=== PATIENT | male | born 1935 | race Caucasian/White ===

== ENCOUNTER 2020-04-20 08:34 | Emergency (ER) | payer MEDICARE, OTHER, SELFPAY ==
[2020-04-20] VITALS (7 sets, daily range): BP systolic 160–162; BP diastolic 74–83; PULSE 75–79; RESP 13–21; TEMP 36.6–36.8; O2SAT 86–95; BMI 35.2
--- NOTE | 2020-04-20 08:55 | XR_ITS ---
WS: [id number] CHEST XRAY TECHNIQUE: Portable chest. CLINICAL INFORMATION: Shortness of breath, Covid rule out COMPARISON: July 28, 2017 FINDINGS: Heart: Cardiomegaly. Aortic calcification. Lungs: Elevation hemidiaphragm. Chronic emphysematous changes. Subsegmental atelectasis right lower l obe. Right hilar/infrahilar masslike opacity measuring 5.6 x 4.4 CM more prominent compared to 2018. Left lung is well aerated. Bones: Normal visualized bony structures. XR/XR chest 1V portable [id number] IMPRESSION: 1. Right hilar/infrahilar masslike opacity progressed since 2018. Recommend fu rther evaluation with chest CT for better anatomic detail. 2. Subsegmental atelectasis right lower lobe with volume loss and elevation ri ght hemidiaphragm. 3. Cardiomegaly.
--- NOTE | 2020-04-20 08:56 | ECG_ITS ---
[facility] Test Date: 2020-04-20 Pat Name: Rashid Bolivar Department: Room: Gender: Male Women Specialist: : 1935 Requested By: Halina Sabillon Order Number: [id number] Jean MD: Adali Lopez M.D. Measurements Intervals [place] Rate: 77 P: 14 MD: 150 QRS: 145 QRSD: 98 T: 53 QT: 429 QTc: 487 Interpretive Statements SINUS RHYTHM INCOMPLETE RIGHT BUNDLE BRANCH BLOCK RIGHT VENTRICULAR HYPERTROPHY MODERATE ST DEPRESSION PROLONGED QT INTERVAL Compared to ECG 07/28/2017 12:13:06 Atrial abnormality now present ST (T wave) deviation now present Prolonged QT interval now present Indeterminate axis no longer present Myocardial infarct finding no longer present Electronically Signed On 04-20-2020 19:14:01 TURNTABLE ENGINEER by Adali Lopez M.D. [email or web address]/store/[id number]
[2020-04-20 09:29] LABS: Basophils % 0.2 %; Hematocrit 46.1 % (42.0-52.0); Hemoglobin 15.1 g/dL (11.7-16.6); Lymphocytes # 1.6 10^3/uL (0.8-4.8); Lymphocytes % 38.7 %; Mean Corpuscular HGB Conc 32.8 g/dL (30.0-36.0); Mean Corpuscular Hemoglobin 31.1 pg (28.0-34.0); Mean Corpuscular Volume 95.1 fL (80-94); Mean Platelet Volume 9.8 fL (7.4-10.4); Monocytes # 0.5 10^3/uL (0.2-0.9); Neutrophils # 1.96 10^3/uL (1.8-7.7); Neutrophils % 48.9 %; Nucleated Red Blood Cells % 0 %; Platelet Count 136 10^3/cmm (130-400); Red Blood Count 4.85 10^6/uL (4.1-5.3); Red Cell Distribution Width 13.3 % (12.1-15.1)
[2020-04-20 09:40] LABS: Fibrinogen 290 mg/dL (174-498); INR 1.04 (0.8-1.2)
[2020-04-20 09:43] LABS: D Dimer 0.65 ug/mIFEU (0-0.59)
[2020-04-20 09:52] LABS: Lactic Sepsis W/Reflex 1.2 mmol/L (0.5-2.2)
[2020-04-20 09:53] LABS: Troponin(5th) Baseline 25 ng/L (0-15)
[2020-04-20 09:56] LABS: Influenza A by IFA Negative (Negative); Influenza B by IFA Negative (Negative)
[2020-04-20 09:58] LABS: SARS Covid-2 Antigen Positive (Negative)
[2020-04-20 10:01] LABS: NT Pro B Type Natriuretic Pept 681 pg/mL (0-450); Procalcitonin 0.08 ng/mL (0-0.5)
[2020-04-20 10:14] LABS: Alanine Aminotransferase 35 U/L (0-41); Albumin Level 4.1 g/dL (3.5-5.2); Alkaline Phosphatase 42 IU/L (40-130); Anion Gap 15.6 (5-19); Aspartate Amino Transferase 38 U/L (0-40); Blood Urea Nitrogen 16 mg/dL (8-23); C Reactive Protein 7.1 mg/L (0.0-4.9); Calcium 8.5 mg/dL (8.5-10.5); Carbon Dioxide 28 mmol/L (22-29); Chloride 99 mmol/L (98-107); Globulin 2.8 g/dL (1.3-4.6); Glucose 101 mg/dL (65-115); Magnesium 2.1 mg/dL (1.7-2.3); Osmolality Calculated 289 mOsm/kg (285-295); Potassium 3.6 mmol/L (3.5-5.1); Sodium 139 mmol/L (136-145); Total Bilirubin 0.5 mg/dL (0.15-1.2); Total Protein 6.9 g/dL (6.6-8.7)
--- NOTE | 2020-04-20 10:23 | CT_ITS ---
WS: [id number] CT angio chest PE protcl [id number] REASON FOR EXAM: COVID, hypoxia, mass TECHNIQUE: Coronal and sagittal 2-D and MIP reformations. IV CONTRAST ADMINISTERED: 156 mL of Omnipaque 350 TOTAL EXAM DLP: 1157.[address] scans at [facility] use at least one of these dose optimization techniques: automat ed exposure control; mA and/or kV adjustment per patient size (includes targeted exams where dose is matched to clinical indication); or iterative reconstruction. FINDINGS: Pulmonary arteries: Normal caliber and no pulmonary emboli. Mediastinum and hilum: Mild four-chamber cardiomegaly. Coronary artery calcifications. Multiple small lymph nodes. These fin dings are unchanged compared to a previous CT scan of the chest 02/02/2016. Thoracic aorta is tortuous and calcified without aneurysmal dilatation. No change from previous examination. Minor bilateral hilar adenopathy unchanged compared to previous examination 02/02/2016. Pulmonary parenchyma and pleura: Patchy areas of groundglass density in both lung bases most prominent on the left. 18 mm left lower l benjamin nodule. These findings are unchanged compared to the previous study of 02/02/2016. There are some patchy consolidative changes in both lung bases that are not identified on the previous examination o f 02/02/2016, or the portion of the lung bases visualized on previous CT scan of the abdomen 11/24/2017 . Thickening of the minor fissure on the right. No pleural effusion. Pleural thickening was seen on the previous examination 02/02/2016. CT/CT angio chest PE protcl [id number] IMPRESSION: No pulmonary emboli. Chronic appearing lower lung changes with stable left pulmonary nodule. Patchy consolidative changes in the lung bases not identified on previous exami nations. Chronicity unknown.
--- NOTE | 2020-04-20 10:29 | PC.NURSE ---
Spoke with pts Mercy on the phone. She was updated on the tests we still have to run and the pts condition as of now.
--- NOTE | 2020-04-20 10:37 | W.ED.COVID ---
HPI - COVID General: Chief Complaint: Nausea/Vomiting/Diarrhea Stated Complaint: COUGH, BODY ACHES,SOB Time Seen by Provider: 04/20/20 08:47 Triage information: No fever, cough or shortness of breath. No known COVID + exposure last 14 days History of Present Illness: HPI Narrative: This patient is an 84-year-old gentleman who comes in today complaining of pain all over. He said last night he started having body aches and nausea. He thinks he may have had a fever. Denies vomiting or diarrhea. He does have some mild shortness of breath and a slight cough. He denies sore throat, change in taste or smell, sinus congestion. He denies dysuria or hematuria. He denies rash. MD complaint: has COVID symptoms Prior covid testing: no COVID 19 common symptoms: positive non-productive cough, dyspnea, fatigue, body aches and nausea; negative headache(s) COVID 19 other sytmptoms: negative chest pain Onset (ago): day(s) (Started during the night) Severity: moderate Pertinent comorbid conditions: obesity (Mild) and other (Peripheral vascular disease) Treatment prior to arrival: none COVID Results: SARS-CoV-2 Antigen (Rapid) Positive (Negative) H 04/20/20 09:13 04/20/20 Review of Systems General: Reports: 10 or more systems reviewed and unremarkable except in HPI and below Const: Reports: body aches and fatigue Eyes: Denies: change in vision ENMT: Denies: odynophagia Card: Denies: chest pain or swelling of feet/ankles Resp: Reports: dyspnea and non-productive cough GI: Reports: nausea : Denies: flank pain Musc: Denies: neck pain or back pain Skin/Breast: Denies: rash Neuro: Denies: headache(s), numbness in extremities or weakness in extremities Gumaro/Lymph: Denies: easy bruising or easy bleeding PFSH ED PFSH: Medical History Thyroid disease Surgical History H/O brain surgery History of gastric surgery History of prostate surgery Family History Denies family history of Diabetes CAD (coronary artery disease) Clotting disorder Dementia Hyperlipidemia Psychiatric illness Chronic kidney disease (CKD) Suicide Anesthesia complication Bleeding disorder Family history of premature coronary artery disease Lung disease Cancer Hypertension Stroke Social History Smoking and tobacco status: never smoked Alcohol intake: never Current occupational status: retired Physical Exam Const: COMMON NORMALS: patient oriented x3, no limitations and alert GENERAL APPEARANCE: cooperative HENMT: HEAD & SCALP: normal to inspection FACE & SINUS: normal facial exam Eye: GENERAL EYE: appearance normal, both eyes and all related structures Neck/C-Spine: COMMON NORMALS: supple, no meningeal signs and no JVD Chest: COMMONS NORMALS: normal inspection of the chest Resp: COMMON NORMALS: normal respiratory effort, No use of accessory muscles and clear to auscultation bilaterally AUSCULTATION: clear to auscultation bilaterally Cardio: COMMON NORMALS: no JVD, regular rate, regular rhythm and No murmurs present (Cardio) RATE: regular rate RHYTHM: regular rhythm GI: COMMON NORMALS: Normal to inspection, nondistended, normoactive bowel sounds present, Soft to palpation and non-tender INSPECTION: Yes normal to inspection AUSCULTATION: Yes normoactive bowel sounds PALPATION: Yes Soft to palpation Back/Pelvis: COMMON NORMALS: thoracic and lumbar spine normal to inspection Extremity: COMMON NORMALS: normal to inspection Neuro: COMMON NORMALS: patient oriented x3, moves all extremities, no focal motor deficits and no sensory deficits noted SENSORIUM/ORIENTATION: Yes alert MENINGEAL SIGNS: Yes no meningeal signs Psych: COMMON NORMALS: mental status grossly normal, cooperative and normal affect Skin: COMMON NORMALS: no rashes or lesions noted and turgor normal GENERAL SKIN EXAM: no rashes or lesions noted and turgor normal Course ED course: This patient presented with body aches that started last night. He did not have a fever here but felt feverish at home. He has had a cough and mild shortness of breath which he says started last night. I spoke to his by phone and she said that they have both stayed home from worship on Saturday because of a cough, so it is conceivable that his symptoms started earlier than last night. His oxygen saturation is right around 90 for the most part during his ED stay. Both the patient and his tell me that that is actually not that unusual for him. He typically has a low oxygen saturation. He is not in any distress. After some Tylenol and fluids he said he feels much better and does not want to stay in the hospital. Given that he looks pretty good and his labs look pretty good I think that is okay. Had him evaluated for home oxygen and he qualified for 4 L. He was sent home with oxygen and a pulse ox. I spoke at some length with he and his about return precautions and self quarantining. Vital Signs: Vital signs: Vital Signs Temperature 97.8 F 04/20/20 09:10 Pulse Rate 79 04/20/20 15:21 Respiratory Rate 13 04/20/20 15:21 Blood Pressure 162/74 04/20/20 15:21 Pulse Oximetry 95 04/20/20 15:21 MDM - COVID Lab Data Result diagrams: 04/20/20 09:10 04/20/20 09:10 Labs: Lab Results 04/20/20 04/20/20 04/20/20 Range/Units 09:10 09:10 09:10 WBC 4.0 (4.0-10.0) 10^3/uL RBC 4.85 (4.1-5.3) 10^6/uL Hgb 15.1 (11.7-16.6) g/dL Hct 46.1 (42.0-52.0) % MCV 95.1 H (80-94) fL MCH 31.1 (28.0-34.0) pg MCHC 32.8 (30.0-36.0) g/dL RDW 13.3 (12.1-15.1) % Plt Count 136 (130-400) 10^3/cmm MPV 9.8 (7.4-10.4) fL Neut % (Auto) 48.9 % Lymph % (Auto) 38.7 % Trimble % (Auto) 12.0 % Eos % (Auto) 0.0 % Baso % (Auto) 0.2 % Neut # (Auto) 1.96 (1.8-7.7) 10^3/uL Lymph # (Auto) 1.6 (0.8-4.8) 10^3/uL Tr[place]ble # (Auto) 0.5 (0.2-0.9) 10^3/uL Eos # (Auto) 0.0 (0.0-0.8) 10^3/uL Baso # (Auto) 0.0 (0.0-0.1) 10^3/uL Nucleated RBC % (auto) 0 % Nucleated RBCs # 0.0 /100WBC PT 14.00 (12.1-14.9) SECONDS INR 1.04 (0.8-1.2) Fibrinogen 290 (174-498) mg/dL D-Dimer 0.65 H (0-0.59) ug/mIFEU Sodium 139 (136-145) mmol/L Potassium 3.6 (3.5-5.1) mmol/L Chloride 99 (98-107) mmol/L Carbon Dioxide 28 (22-29) mmol/L Anion Gap 15.6 (5-19) BUN 16 (8-23) mg/dL Creatinine 1.1 (0.7-1.2) mg/dL GFR Calculation Not Reportable Glucose 101 (65-115) mg/dL Calculated Osmolality 289 (285-295) mOsm/kg Lactic Acid (0.5-2.2) mmol/L Calcium 8.5 (8.5-10.5) mg/dL Magnesium 2.1 (1.7-2.3) mg/dL Total Bilirubin 0.5 (0.15-1.2) mg/dL AST 38 (0-40) U/L ALT 35 (0-41) U/L Alkaline Phosphatase 42 (40-130) IU/L Troponin T Baseline (0-15) ng/L Troponin T 120 Minute (0-15) ng/L Delta Troponin T (0-10) ABS# C-Reactive Protein 7.1 H (0.0-4.9) mg/L NT-Pro-B Natriuret Pep 681 H (0-450) pg/mL Total Protein 6.9 (6.6-8.7) g/dL Albumin 4.1 (3.5-5.2) g/dL Globulin 2.8 (1.3-4.6) g/dL Procalcitonin 0.08 (0-0.5) ng/mL Influenza Type A Ag (Negative) Influenza Type B Ag (Negative) SARS-CoV-2 Ag (Rapid) (Negative) 1104/20/20 04/20/20 Range/Units 09:10 09:10 09:13 WBC (4.0-10.0) 10^3/uL RBC (4.1-5.3) 10^6/uL Hgb (11.7-16.6) g/dL Hct (42.0-52.0) % MCV (80-94) fL MCH (28.0-34.0) pg MCHC (30.0-36.0) g/dL RDW (12.1-15.1) % Plt Count (130-400) 10^3/cmm MPV (7.4-10.4) fL Neut % (Auto) % Lymph % (Auto) % [place] % (Auto) % Eos % (Auto) % Baso % (Auto) % Neut # (Auto) (1.8-7.7) 10^3/uL Lymph # (Auto) (0.8-4.8) 10^3/uL Trimble # (Auto) (0.2-0.9) 10^3/uL Eos # (Auto) (0.0-0.8) 10^3/uL Baso # (Auto) (0.0-0.1) 10^3/uL Nucleated RBC % (auto) % Nucleated RBCs # /100WBC PT (12.1-14.9) SECONDS INR (0.8-1.2) Fibrinogen (174-498) mg/dL D-Dimer (0-0.59) ug/mIFEU Sodium (136-145) mmol/L Potassium (3.5-5.1) mmol/L Chloride (98-107) mmol/L Carbon Dioxide (22-29) mmol/L Anion Gap (5-19) BUN (8-23) mg/dL Creatinine (0.7-1.2) mg/dL GFR Calculation Glucose (65-115) mg/dL Calculated Osmolality (285-295) mOsm/kg Lactic Acid 1.2 (0.5-2.2) mmol/L Calcium (8.5-10.5) mg/dL Magnesium (1.7-2.3) mg/dL Total Bilirubin (0.15-1.2) mg/dL AST (0-40) U/L ALT (0-41) U/L Alkaline Phosphatase (40-130) IU/L Troponin T Baseline 25 H (0-15) ng/L Troponin T 120 Minute (0-15) ng/L Delta Troponin T (0-10) ABS# C-Reactive Protein (0.0-4.9) mg/L NT-Pro-B Natriuret Pep (0-450) pg/mL Total Protein (6.6-8.7) g/dL Albumin (3.5-5.2) g/dL Globulin (1.3-4.6) g/dL Procalcitonin (0-0.5) ng/mL Influenza Type A Ag Negative (Negative) Influenza Type B Ag Negative (Negative) SARS-CoV-2 Ag (Rapid) (Negative) 04/20/20 04/20/20 Range/Units 09:13 12:26 WBC (4.0-10.0) 10^3/uL RBC (4.1-5.3) 10^6/uL Hgb (11.7-16.6) g/dL Hct (42.0-52.0) % MCV (80-94) fL MCH (28.0-34.0) pg MCHC (30.0-36.0) g/dL RDW (12.1-15.1) % Plt Count (130-400) 10^3/cmm MPV (7.4-10.4) fL Neut % (Auto) % Lymph % (Auto) % [place] % (Auto) % Eos % (Auto) % Baso % (Auto) % Neut # (Auto) (1.8-7.7) 10^3/uL Lymph # (Auto) (0.8-4.8) 10^3/uL Trimble # (Auto) (0.2-0.9) 10^3/uL Eos # (Auto) (0.0-0.8) 10^3/uL Baso # (Auto) (0.0-0.1) 10^3/uL Nucleated RBC % (auto) % Nucleated RBCs # /100WBC PT (12.1-14.9) SECONDS INR (0.8-1.2) Fibrinogen (174-498) mg/dL D-Dimer (0-0.59) ug/mIFEU Sodium (136-145) mmol/L Potassium (3.5-5.1) mmol/L Chloride (98-107) mmol/L Carbon Dioxide (22-29) mmol/L Anion Gap (5-19) BUN (8-23) mg/dL Creatinine (0.7-1.2) mg/dL GFR Calculation Glucose (65-115) mg/dL Calculated Osmolality (285-295) mOsm/kg Lactic Acid (0.5-2.2) mmol/L Calcium (8.5-10.5) mg/dL Magnesium (1.7-2.3) mg/dL Total Bilirubin (0.15-1.2) mg/dL AST (0-40) U/L ALT (0-41) U/L Alkaline Phosphatase (40-130) IU/L Troponin T Baseline (0-15) ng/L Troponin T 120 Minute 20.68 H (0-15) ng/L Delta Troponin T -4.32 L (0-10) ABS# C-Reactive Protein (0.0-4.9) mg/L NT-Pro-B Natriuret Pep (0-450) pg/mL Total Protein (6.6-8.7) g/dL Albumin (3.5-5.2) g/dL Globulin (1.3-4.6) g/dL Procalcitonin (0-0.5) ng/mL Influenza Type A Ag (Negative) Influenza Type B Ag (Negative) SARS-CoV-2 Ag (Rapid) Positive H (Negative) COVID Results: SARS-CoV-2 Antigen (Rapid) Positive (Negative) H 04/20/20 09:13 04/20/20 Discharge Plan Discharge Patient Disposition: Home Clinical Impression: COVID-19 Condition: Stable Prescriptions: No Action hydrocortisone 20 mg tablet 20 mg PO BID RF: 0 levothyroxine 100 mcg tablet 100 mcg PO DAILY RF: 0 aspirin [Aspir-81] 81 mg tablet,delayed release (DR/EC) 81 mg PO DAILY RF: 0 lisinopril 5 mg tablet 5 mg PO DAILY RF: 0 Discharge Orders: Discharge Order (Routine); Ordered 04/20/20 Ordered By: Halina Mena Other Ambulatory Orders: DME: Oxygen (Order) Location: None Selected Ordered By: Halina Mena Referrals: Jose David Wiggins Jr, MD [Primary Care Provider] - Discharge Diet: Usual diet Discharge Activity: Limit activity as instructed Patient Instructions: Viral Syndrome (ED) Activity Restrictions/Additional Instructions: Use the oxygen as prescribed. Use the pulse oximeter to make sure that your oxygen level stays above 90. If it goes below 90 for any length of time then you need to return to the ER. Return as well for any changes in alertness or other concerns of worsening symptoms. Follow-up with Dr. Wiggins for further reevaluation. Anyone has been around you within the last week, you should notify that you have had a positive test. Continue to self isolate until you are symptom-free for at least 48 hours. Discharge Date/Time: 04/20/20 16:46 Coding Level of Care Code ED Strike Warfare/Missile Systems Officer for Jose Fwd Exam Comprehensive
--- NOTE | 2020-04-20 10:56 | ECG_ITS ---
[facility] Test Date: 2020-04-20 Pat Name: Rashid Bolivar Department: Room: Gender: Male Client Care Coordinator: : 1935 Requested By: Halina Sabillon Order Number: [id number] Jean MD: Adali Lopez M.D. Measurements Intervals [place] Rate: 77 P: 17 VA: 173 QRS: 132 QRSD: 98 T: 50 QT: 415 QTc: 472 Interpretive Statements SINUS RHYTHM INCOMPLETE RIGHT BUNDLE BRANCH BLOCK POSSIBLE RIGHT VENTRICULAR HYPERTROPHY Compared to ECG 04/20/2020 09:28:04 ST (T wave) deviation no longer present Prolonged QT interval no longer present Electronically Signed On 04-20-2020 19:31:29 WATER PUMP SERVICER by Adali Lopez M.D. [email or web address] [place] [facility].[employer]/[id number]
--- NOTE | 2020-04-20 11:17 | PC.NURSE ---
EKG done at 1100 and shown to ER doctor
[2020-04-20] MEDS: iohexol 350 mg/mL 100 mL Btl IV ×2 (11:32→11:33)
[2020-04-20 13:01] LABS: Troponin 5 2HR 20.68 ng/L (0-15)
[2020-04-20 13:14] LABS: Troponin 5 2HR Delta -4.32 ABS# (0-10)
== END 2020-04-20 16:46 | disposition home or self-care (01) ==
PROVIDERS: Emergency Provider Emergency Medicine; Family Provider Family Medicine; PCP Family Medicine
DX: U07.1 COVID-19 (principal); Z79.82 Long term (current) use of aspirin; I70.0 Atherosclerosis of aorta
CPT/HCPCS: 12345; 71045; 71275; 80053; 83605; 83735; 83880; 84145; 84484; 85025; 85378; 85384; 85610; 86140; 87426; 87804; 93005; 99284; 99291; Q9967

== ENCOUNTER 2020-05-13 12:23 | Outpatient (CLI) | payer MEDICARE, OTHER, SELFPAY ==
--- NOTE | 2020-05-13 12:44 | XR_ITS ---
WS: [id number] CHEST 2 VIEWS HISTORY: COVID-19 COMPARISON: 04/20/2020 Lungs: Linear areas of atelectasis at the lung bases. Nodular density in the medial RIGHT lower lung field corresponds to a dilated pulmonary artery and bronchial wall thickening. These findings were id entified on chest CT of 04/20/2020. Similar to prior chest radiograph of 07/28/2017 also. Cardiac size: Mildly enlarged cardiac silhouette. Mediastinum/Aorta: Mild atherosclerosis aorta. Bones: Normal. XR/XR chest 2V* [id number] IMPRESSION: 1. Subsegmental linear areas of atelectasis at the lung bases. 2. No pneumonia. 3. Persistent dilated RIGHT pulmonary artery and bronchial wall thickening cor responds to the findings on the chest CT of 04/20/2020.
== END 2020-05-13 12:24 | disposition home or self-care (01) ==
PROVIDERS: PCP Family Medicine; Visit Provider Family Medicine
DX: U07.1 COVID-19 (principal); J98.11 Atelectasis
CPT/HCPCS: 71046

== ENCOUNTER 2020-06-11 06:32 | Inpatient (IN) | payer MEDICARE, OTHER, SELFPAY ==
[2020-06-11] VITALS (9 sets, daily range): BP systolic 130–182; BP diastolic 71–88; PULSE 86–110; RESP 20–27; TEMP 36.9–37.8; O2SAT 91–98; BMI 35.2
--- NOTE | 2020-06-11 06:47 | XRR_ITS ---
PROCEDURE INFORMATION: Exam: XR Chest, 1 View Exam date and time: 06/11/2020 7:21 AM Age: 84 years old Clinical indication: Shortness of breath; Additional info: Dyspnea/cough TECHNIQUE: Imaging protocol: XR of the chest Views: 1 view. COMPARISON: CR XR chest 2V* [id number] 05/13/2020 12:57 PM FINDINGS: Lungs: See Bones/joints finding. Pleural space: Unremarkable. No pleural effusion. No pneumothorax. Heart/Mediastinum: Rounded opacity near the right roberto may again reflect prominent main right central pulmonary vascular dilatation. Left ventricular cardiac enlargement. Vasculature: Tortuous calcified thoracic aorta. Diaphragm: Elevation right hemidiaphragm. Bones/joints: Degenerative change of thoracic spine. The cardiophrenic and costophrenic angles are not entirely included on the left. Soft tissues: Linear atelectasis or partial fissural thickening right mid chest. XR/XR chest 1V portable [id number] IMPRESSION: 1. Similar appearance of the chest with linear atelectasis or scarring right mid lung. 2. Left ventricular cardiac prominence of size.
--- NOTE | 2020-06-11 06:48 | ECG_ITS ---
[facility] Test Date: 2020-06-11 Pat Name: Rashid Bolivar Department: Room: Gender: Male Zinc Plate Grainer: : 1935 Requested By: Willis Sabillon Order Number: [id number] Jean MD: Jaspreet Luna M.D. Measurements Intervals [place] Rate: 108 P: 29 RI: 160 QRS: 137 QRSD: 109 T: 20 QT: 346 QTc: 465 Interpretive Statements SINUS TACHYCARDIA POSSIBLE LEFT ATRIAL ENLARGEMENT [-0.1mV P WAVE IN V1/V2] INDETERMINATE AXIS INCOMPLETE RIGHT BUNDLE BRANCH BLOCK [90+ ms QRS DURATION, TERMINAL R IN V1/V2, 40+ ms S IN I/aVL/V4/V5/V6] MODERATE T-WAVE ABNORMALITY, CONSIDER ANTERIOR ISCHEMIA [-0.1+ mV T WAVE IN V3/V4] Compared to ECG 04/20/2020 11:03:32 Indeterminate axis now present T-wave abnormality now present Possible ischemia now present Sinus rhythm no longer present Electronically Signed On 06-11-2020 16:41:18 MAKEUP SALES CONSULTANT by Jaspreet Luna M.D. [email or web address].[employer]/store/[id number] [email or web address]
--- NOTE | 2020-06-11 06:49 | ED_ITS ---
HPI - SOB/Dyspnea General: Chief Complaint: Shortness of Breath/Dyspnea Stated Complaint: DYSPNEA AND WEAKNESS Time Seen by Provider: 06/11/20 06:34 History of Present Illness: HPI Narrative: 84-year-old male brought in by EMS. EMS was paged out with a call for shortness of breath. On arrival there evidently patient was found on the floor there is some nearby coffee-ground like emesis but no bright red blood. Patient was short of breath and dyspneic. He states he has had intermittent nausea and vomiting for the last week denies diarrhea. On April 20 of this year he tested positive for Covid. He does not normally wear oxygen at the time I came to see the patient he is 88% with a good waveform on 5 L by nasal cannula. MD elicited complaint: shortness of breath and cough Pertinent past history: COPD Onset (ago): day(s) Context: recent illness (COVID-19 last month) Timing: constant Severity: severe Exacerbating factors: exertion and coughing Relieving factors: oxygen and rest Known history of: COPD Associated symptoms: Reports chest congestion, cough, diaphoresis, nausea and vomiting; Deny abdominal pain, chest pain, dizziness, extremity pain, fever(s), hemoptysis, lightheadedness, myalgias, orthopnea, palpitations, paresthesias, polydipsia, polyuria, rash, sense of impending doom or syncope Treatment prior to arrival: oxygen Review of Systems Const: Reports: diaphoresis; Denies: fever(s) ENMT: Denies: throat pain, ear or mastoid pain, nasal discharge or nasal congestion Card: Denies: chest pain, palpitations, lightheadedness, syncope or orthopnea Resp: Reports: chest congestion; Denies: hemoptysis GI: Reports: nausea and vomiting; Denies: abdominal pain : Denies: flank pain, dysuria, urinary frequency or urinary urgency Musc: Denies: extremity pain Skin/Breast: Denies: rash or pruritus Neuro: Denies: dizziness Endo: Denies: polyuria or polydipsia PFS ED PFSH: Medical History (Updated 06/11/20 @ 08:58 by Willis Gonzales DO) Thyroid disease Surgical History H/O brain surgery History of gastric surgery History of prostate surgery Family History Denies family history of Diabetes CAD (coronary artery disease) Clotting disorder Dementia Hyperlipidemia Psychiatric illness Chronic kidney disease (CKD) Suicide Anesthesia complication Bleeding disorder Family history of premature coronary artery disease Lung disease Cancer Hypertension Stroke Social History Smoking and tobacco status: never smoked Alcohol intake: never Current occupational status: retired Physical Exam Const: GENERAL APPEARANCE: cooperative and comfortable ORIENTATION /CONSCIOUSNESS: Yes awake, Yes oriented to person, Yes oriented to place and Yes oriented to time HENMT: COMMON NORMALS: normocephalic, atraumatic and hearing grossly normal bilaterally HEAD & SCALP: normocephalic and atraumatic Eye: COMMON NORMALS: Equal, round and reactive pupils present, EOMs intact bilaterally, conjunctivae normal and no scleral icterus CONJUNCTIVA: Yes conjunctivae normal PUPIL: Yes Equal, round and reactive pupils present Neck/C-Spine: COMMON NORMALS: no JVD Resp: AUSCULTATION: wheezes and diminished lung sounds Cardio: COMMON NORMALS: no JVD, regular rhythm and No murmurs present (Cardio) RATE: tachycardic RHYTHM: regular rhythm GI: COMMON NORMALS: Soft to palpation and No hepatosplenomegaly present AUSCULTATION: Yes normoactive bowel sounds PALPATION: Yes Soft to palpation, No Tenderness to palpation present (GI), No Guarding due to palpation present (GI) and Yes No hepatosplenomegaly present Extremity: COMMON NORMALS: normal to inspection, capillary refill normal, no clubbing, cyanosis or edema, no calf tenderness and no pedal edema Neuro: SENSORIUM/ORIENTATION: Yes oriented to person, Yes oriented to place and Yes oriented to time Skin: COMMON NORMALS: no rashes or lesions noted GENERAL SKIN EXAM: no rashes or lesions noted Course Vital Signs: Vital signs: Vital Signs Temperature 98.5 F 06/11/20 06:32 Pulse Rate 109 H 06/11/20 06:32 Respiratory Rate 20 H 06/11/20 06:32 Blood Pressure 170/82 06/11/20 06:32 Pulse Oximetry 91 06/11/20 06:32 MDM - SOB/Dyspnea MDM Narrative: Medical decision making narrative: Reviewed imaging and labs. Patient has a very slightly elevated creatinine. On his imaging he has no pneumonia pneumothorax no evidence of persistent or recurrent Covid no PE no congestive heart failure. Old echo from 19 July 2017 showed some diastolic heart dysfunction as well as some elevated right-sided pressures. He will probably need that echo repeated. He is still requiring oxygen by mask to maintain sats in the mid to low 90s. His lactic is elevated. But I am not finding a source of sepsis we are still waiting on the urine he missed the urinal set up to be repeated. He denies any dysuria urgency or frequency. We will go ahead and admit started on Levaquin. He does not need this episode fluid bolus to his blood pressure being elevated. His white count is normal. Given him Solu-Medrol and albuterol the in the emergency room to try to alleviate some of the symptoms discussed Dr. Sweet and orders have been written Lab Data: Labs: Lab Results 06/11/20 06/11/20 06/11/20 Range/Units 06:45 06:50 06:50 WBC 7.0 (4.0-10.0) 10^3/ uL RBC 4.59 (4.1-5.3) 10^6/u L Hgb 14.1 (11.7-16.6) g/dL Hct 44.0 (42.0-52.0) % MCV 95.9 H (80-94) fL MCH 30.7 (28.0-34.0) pg MCHC 32.0 (30.0-36.0) g/dL RDW 13.6 (12.1-15.1) % Plt Count 164 (130-400) 10^3/c mm MPV 9.8 (7.4-10.4) fL Neut % (Auto) 74.1 % Lymph % (Auto) 15.8 % [place] % (Auto) 9.3 % Eos % (Auto) 0.0 % Baso % (Auto) 0.4 % Neut # (Auto) 5.17 (1.8-7.7) 10^3/u L Lymph # (Auto) 1.1 (0.8-4.8) 10^3/u L [place] # (Auto) 0.7 (0.2-0.9) 10^3/u L Eos # (Auto) 0.0 (0.0-0.8) 10^3/u L Baso # (Auto) 0.0 (0.0-0.1) 10^3/u L Nucleated RBC % (a uto) 0 % Nucleated RBCs # 0.0 /100WBC D-Dimer 1.69 H (0-0.59) ug/mIFE U Specimen Type Arterial Sample Site Radial, right ABG pH 7.44 (7.35-7.45) ABG pCO2 39.2 (35-45) mmHg ABG pO2 51.3 L (80.0-100.0) mmH g ABG HCO3 26.3 H (22-26) mmol/L ABG O2 Saturation 90.0 ABG Base Excess 2.0 (-2.0-2.0) mmol/ L Neeraj Test Pos A-a O2 Gradient 6.5 (5-10) mmHg Hematocrit 45.2 (42-52) % Hgb O2 Saturation 87.9 L (95-100) % Carboxyhemoglobin 1.4 (0.4-20.1) %THgb Methemoglobin 0.9 (0.4-1.5) % Total Hemoglobin 14.8 (14-18) g/dL Sodium 140.0 (131-143) mmol/L Potassium 3.5 (3.5-5.0) mmol/L Glucose 142.0 H (70-115) mg/dL Ionized Calcium 1.1 (1.1-1.4) mmol/L O2 Delivery Device Oxy mask O2 Liters/Min 10.0 % Grinder Set Up Operator Thread ID [id number] Chloride (98-107) mmol/L Carbon Dioxide (22-29) mmol/L Anion Gap (5-19) BUN (8-23) mg/dL Creatinine (0.7-1.2) mg/dL GFR Calculation Calculated Osmolal ity (285-295) mOsm/k g Lactic Acid (0.5-2.2) mmol/L Calcium (8.5-10.5) mg/dL Total Bilirubin (0.15-1.2) mg/dL AST (0-40) U/L ALT (0-41) U/L Alkaline Phosphata se (40-130) IU/L Creatine Kinase (39-308) U/L Troponin T Baselin e (0-15) ng/L Total Protein (6.6-8.7) g/dL Albumin (3.5-5.2) g/dL Globulin (1.3-4.6) g/dL 06/11/20 06/11/20 06/11/20 Range/Units 06:50 06:50 06:50 WBC (4.0-10.0) 10^3/ uL RBC (4.1-5.3) 10^6/u L Hgb (11.7-16.6) g/dL Hct (42.0-52.0) % MCV (80-94) fL MCH (28.0-34.0) pg MCHC (30.0-36.0) g/dL RDW (12.1-15.1) % Plt Count (130-400) 10^3/c mm MPV (7.4-10.4) fL Neut % (Auto) % Lymph % (Auto) % [place] % (Auto) % Eos % (Auto) % Baso % (Auto) % Neut # (Auto) (1.8-7.7) 10^3/u L Lymph # (Auto) (0.8-4.8) 10^3/u L [place] # (Auto) (0.2-0.9) 10^3/u L Eos # (Auto) (0.0-0.8) 10^3/u L Baso # (Auto) (0.0-0.1) 10^3/u L Nucleated RBC % (a uto) % Nucleated RBCs # /100WBC D-Dimer (0-0.59) ug/mIFE U Specimen Type Sample Site ABG pH (7.35-7.45) ABG pCO2 (35-45) mmHg ABG pO2 (80.0-100.0) mmH g ABG HCO3 (22-26) mmol/L ABG O2 Saturation ABG Base Excess (-2.0-2.0) mmol/ L Neeraj Test A-a O2 Gradient (5-10) mmHg Hematocrit (42-52) % Hgb O2 Saturation (95-100) % Carboxyhemoglobin (0.4-20.1) %THgb Methemoglobin (0.4-1.5) % Total Hemoglobin (14-18) g/dL Sodium 137 (131-143) mmol/L Potassium 3.7 (3.5-5.0) mmol/L Glucose 123 H (70-115) mg/dL Ionized Calcium (1.1-1.4) mmol/L O2 Delivery Device O2 Liters/Min % Grinder Set Up Operator Thread ID Chloride 99 (98-107) mmol/L Carbon Dioxide 26 (22-29) mmol/L Anion Gap 15.7 (5-19) BUN 16 (8-23) mg/dL Creatinine 1.3 H (0.7-1.2) mg/dL GFR Calculation Not Reportable Calculated Osmolal ity 287 (285-295) mOsm/k g Lactic Acid 3.2 H (0.5-2.2) mmol/L Calcium 8.7 (8.5-10.5) mg/dL Total Bilirubin 0.5 (0.15-1.2) mg/dL AST 21 (0-40) U/L ALT 15 (0-41) U/L Alkaline Phosphata se 39 L (40-130) IU/L Creatine Kinase 80 (39-308) U/L Troponin T Baselin e 25 H (0-15) ng/L Total Protein 6.9 (6.6-8.7) g/dL Albumin 4.0 (3.5-5.2) g/dL Globulin 2.9 (1.3-4.6) g/dL Discharge Plan Discharge Patient Disposition: Admitted As Inpatient Clinical Impression: Hypoxia, Sepsis Condition: Stable Coding Level of Care Code ED Independent Freight Agent for Jose Fwd Exam Comprehensive
[2020-06-11 07:00] LABS: ABG PCO2 39.2 mmHg (35-45); ABG PH Result 7.44 (7.35-7.45); Alveolar-Arterial Oxygen Gradi 6.5 mmHg (5-10); Arterial Blood Gas Hematocrit 45.2 % (42-52); Blood Gas Allen Test Pos; Blood Gas Sample Site Radial, right; Blood Gas Sample Type Arterial; Carboxyhemoglobin 1.4 %THgb (0.4-20.1); HCO3 ABG 26.3 mmol/L (22-26); HGB O2 Sat 87.9 % (95-100); Ionized Calcium Level - ABG 1.1 mmol/L (1.1-1.4); Methemoglobin 0.9 % (0.4-1.5); Oxygen Device OXY MASK; PO2 ABG 51.3 mmHg (80.0-100.0); Potassium Level - ABG 3.5 mmol/L (3.5-5.0); Total Hemoglobin 14.8 g/dL (14-18)
[2020-06-11 07:02] LABS: Basophils % 0.4 %; Hemoglobin 14.1 g/dL (11.7-16.6); Lymphocytes # 1.1 10^3/uL (0.8-4.8); Lymphocytes % 15.8 %; Mean Corpuscular Hemoglobin 30.7 pg (28.0-34.0); Mean Corpuscular Volume 95.9 fL (80-94); Mean Platelet Volume 9.8 fL (7.4-10.4); Monocytes # 0.7 10^3/uL (0.2-0.9); Monocytes % 9.3 %; Neutrophils # 5.17 10^3/uL (1.8-7.7); Neutrophils % 74.1 %; Nucleated Red Blood Cells % 0 %; Platelet Count 164 10^3/cmm (130-400); Red Blood Count 4.59 10^6/uL (4.1-5.3); Red Cell Distribution Width 13.6 % (12.1-15.1)
[2020-06-11 07:16] LABS: D Dimer 1.69 ug/mIFEU (0-0.59)
[2020-06-11 07:21] LABS: Alanine Aminotransferase 15 U/L (0-41); Alkaline Phosphatase 39 IU/L (40-130); Anion Gap 15.7 (5-19); Aspartate Amino Transferase 21 U/L (0-40); Blood Urea Nitrogen 16 mg/dL (8-23); Calcium 8.7 mg/dL (8.5-10.5); Carbon Dioxide 26 mmol/L (22-29); Chloride 99 mmol/L (98-107); Creatine Phosphokinase 80 U/L (39-308); Globulin 2.9 g/dL (1.3-4.6); Glucose 123 mg/dL (65-115); Osmolality Calculated 287 mOsm/kg (285-295); Potassium 3.7 mmol/L (3.5-5.1); Sodium 137 mmol/L (136-145); Total Bilirubin 0.5 mg/dL (0.15-1.2); Total Protein 6.9 g/dL (6.6-8.7)
[2020-06-11 07:22] LABS: Lactic Sepsis W/Reflex 3.2 mmol/L (0.5-2.2)
[2020-06-11 07:23] LABS: Troponin(5th) Baseline 25 ng/L (0-15)
--- NOTE | 2020-06-11 07:34 | CTR_ITS ---
PROCEDURE INFORMATION: Exam: CT Angiography Chest With Contrast Exam date and time: 06/11/2020 7:36 AM Age: 84 years old Clinical indication: Shortness of breath; Additional info: Dyspnea/elevated d dimer TECHNIQUE: Imaging protocol: Computed tomographic angiography of the chest with intravenous contrast. 3D rendering (Not supervised by radiologist): MIP and/or 3D reconstructed images were created by the technologist. Radiation optimization: All CT scans at this facility use at least one of these dose optimization techniques: automated exposure control; mA and/or kV adjustment per patient size (includes targeted exams where dose is matched to clinical indication); or iterative reconstruction. Contrast material: VISI 320; Contrast volume: 75 ml; Contrast route: INTRAVENOUS (IV); COMPARISON: CT angio chest PE protcl [id number] 04/20/2020 11:14 AM RADIATION DOSE METRICS: Total DLP (mGy-cm): 568.49 FINDINGS: Pulmonary arteries: Dilated right main pulmonary artery measuring 4.4 cm. No visualized pulmonary embolus for the level of contrast opacification of arterial structures which is diminished. Limitation by streak artifact. Aorta: Calcified thoracic aorta. Lungs: Interstitial crowding, scarring or atelectasis lower lungs. Linear atelectasis within the right lung. 0.5 cm nodule right middle lobe unchanged. Similar 1.3 cm nodule left lower lobe. Pleural space: Unremarkable. No pneumothorax. No pleural effusion. Heart: Calcification distribution of coronary arteries. Lymph nodes: Several small mediastinal lymph nodes. Small hilar lymph nodes. Bones/joints: Degenerative change of the spine. Soft tissues: Unremarkable. CT/CT angio chest PE protcl [id number] IMPRESSION: 1. Atherosclerosis thoracic aorta. 2. There is no visualized pulmonary embolus with limited assessment by diminished contrast intensity and extensive motion. 3. Dilatation of right main pulmonary artery stable. 4. Mediastinal and hilar adenopathy remains. 5. Stable right middle lobe and left lower lobe nodules dating back to 2016 most probably benign. 6. Residual atelectasis right lung with interstitial thickening or atelectasis lower lungs. Radiation Dose CTDIVOL = (mGy): DLP = 568.49 (mGy-cm)
[2020-06-11] MEDS: iodixanol 320 mg/mL 100mL Btl IV (08:00)
[2020-06-11 08:45] LABS: Reflex Lactate Order REFLEX LACTIC ORDERD
--- NOTE | 2020-06-11 08:48 | ECG_ITS ---
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 Measurements Intervals [place] Rate: 104 P: 32 [place]: 160 QRS: 154 QRSD: 105 T: 27 QT: 354 QTc: 466 Interpretive Statements SINUS TACHYCARDIA POSSIBLE LEFT ATRIAL ENLARGEMENT [-0.1mV P WAVE IN V1/V2] INDETERMINATE AXIS PATTERN CONSISTENT WITH PULMONARY DISEASE INCOMPLETE RIGHT BUNDLE BRANCH BLOCK [90+ ms QRS DURATION, TERMINAL R IN V1/V2, 40+ ms S IN I/aVL/V4/V5/V6] MODERATE T-WAVE ABNORMALITY, CONSIDER ANTEROLATERAL ISCHEMIA [-0.1+ mV T WAVE IN V3-V6] Compared to ECG 06/11/2020 07:03:18 No significant changes Electronically Signed On 06-11-2020 16:55:49 FINANCE INTERN by Jaspreet Luna M.D. [id number]
[2020-06-11] MEDS: ipratropium-albuterol 3 mL Neb INHALATION (08:51)
[2020-06-11] MEDS: levofloxacin-dextrose 5 % 750 MG/150 ML PREMIX 100 MG IV (08:56)
[2020-06-11] MEDS: sodium chlor 0.9% + KCl 20 mEq 20 MEQ/1,000 ML BAG 125 MEQ IV (08:56)
[2020-06-11 09:07] LABS: ABG PCO2 40.4 mmHg (35-45); ABG PH Result 7.44 (7.35-7.45); Alveolar-Arterial Oxygen Gradi 5.1 mmHg (5-10); Arterial Blood Gas Hematocrit 44.5 % (42-52); Blood Gas Allen Test Pos; Blood Gas Operator Identificat GD; Blood Gas Sample Site Radial, left; Blood Gas Sample Type Arterial; Carboxyhemoglobin 1.2 %THgb (0.4-20.1); HCO3 ABG 27.4 mmol/L (22-26); HGB O2 Sat 92.6 % (95-100); Ionized Calcium Level - ABG 1.1 mmol/L (1.1-1.4); Methemoglobin 0.2 % (0.4-1.5); Oxygen Device OXY MASK; Oxygen Saturation ABG 93.9; PO2 ABG 61.1 mmHg (80.0-100.0); Potassium Level - ABG 3.7 mmol/L (3.5-5.0); Total Hemoglobin 14.5 g/dL (14-18)
[2020-06-11 09:45] LABS: Add Urine Culture? No; Add Urine Microscopic? YES; Bacteria Urine TRACE /hpf; Bilirubin Urine Neg (Negative); Blood Urine 2+ (Negative); Glucose Urine UA Norm (Normal); Ketones Urine Negative (Negative); Leukocyte Esterase Urine Negative (Negative); Nitrate Urine Negative (Negative); Protein Urine Neg (Negative); Urine Appearance Clear (CLEAR); Urine Color Straw (Yellow); Urobilinogen Urine Norm (Negative); WBC Urine 0-4 /hpf (0-5); pH Urine 5 (5-7)
[2020-06-11 09:51] LABS: Troponin 5 2HR 25.88 ng/L (0-15); Troponin 5 2HR Delta 0.88 ABS# (0-10)
[2020-06-11 11:09] LABS: C Reactive Protein 26.4 mg/L (0.0-4.9); NT Pro B Type Natriuretic Pept 673 pg/mL (0-450)
--- NOTE | 2020-06-11 12:22 | P.HP_ITS ---
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 Patient was diagnosed with Covid early April and was discharged home, he was not using any home oxygen and for the most part he was doing fine, post discharge. Upon arrival in the ER he was worked up for the above complaint. Imaging studies: CTA chest: No pulmonary embolism.Residual atelectasis right lung with interstitial thickening or atelectasis lower lungs. Stable right middle lobe and left lower lobe nodules dating back to 2015 most probably benign. X-ray chest: Similar appearance of the chest with linear atelectasis or scarring right mid lung. EKG: Sinus tachycardia,INCOMPLETE RIGHT BUNDLE BRANCH BLOCK . Pertinent labs: D-dimer 1.69, WBC: 7, H&H: 14.1/ 44 , BUN / serum creatinine : 16/1.3 , Lactic acid:3.2 , Troponin: Baseline: 25, 2-hour: 25.8, delta 2-hour:0.88 , proBNP: 673, Urinalysis: Clean ABG: Ph: 7.44, PCO2: 40, PO2: 61, FIO2:10Ls ECA Medications: Levofloxacin 750 mg I.V 8 1 Dose, DUO nebs * 1 , and He was started on I.V Fluids Review of Systems Const: Denies: fever(s) Card: Denies: palpitations, edema, swelling of feet/ankles or orthopnea Resp: Denies: wheezing or pain on inspiration GI: Denies: abdominal pain, diarrhea or constipation : Denies: flank pain or difficulty urinating Musc: Denies: back pain, extremity pain or extremity swelling Neuro: Denies: headache(s) or difficulty walking Medications/Allergies Home Medications Medication Instructions Recorded Confirmed Last Taken Type hydrocortisone 20 mg tablet See Rx Instructions .ROUTE .COMPLEX 09/01/19 06/11/20 06/10/20 History lisinopril 5 mg tablet 5 mg PO DAILY@12 09/01/19 06/11/20 06/10/20 History aspirin 81 mg PO DAILY@06/11/20 06/11/20 06/10/20 History levothyroxine 112 mcg PO DAILY@07 06/11/20 06/11/20 06/10/20 History Allergies Allergy/AdvReac Type Severity Reaction Status Date / Time morphine Allergy Vomitting Verified 04/20/20 08:47 PFSH Acute PFSH: Medical History (Updated 06/11/20 @ 13:11 by Sina Sweet MD) Thyroid disease Surgical History H/O brain surgery History of gastric surgery History of prostate surgery Family History Denies family history of Diabetes CAD (coronary artery disease) Clotting disorder Dementia Hyperlipidemia Psychiatric illness Chronic kidney disease (CKD) Suicide Anesthesia complication Bleeding disorder Family history of premature coronary artery disease Lung disease Cancer Hypertension Stroke Social History Smoking and tobacco status: never smoked Alcohol intake: never Current occupational status: retired Vitals/I&O/Wt Last Vital Signs Temp 98.5 F 06/11/20 06:32 Pulse 93 06/11/20 10:00 Resp 22 H 06/11/20 10:00 BP 130/78 06/11/20 10:00 Pulse Ox 98 06/11/20 10:00 06/10/20 06/11/20 06/11/20 22:59 06:59 14:59 Intake Total 150 / 150 Balance 150 / 150 Weight last 48 hrs Weight 117.934 kg Physical Exam Const: COMMON NORMALS: patient oriented x3 HENMT: COMMON NORMALS: normocephalic and atraumatic HEAD & SCALP: normoceph alic and atraumatic Chest: CHEST: Yes Symmetrical chest wall rise Resp: COMMON NORMALS: clear to auscultation bilaterally EFFORT & INSPECTION: Yes symmetric chest movement AUSCULTATION: clear to auscultation bilaterally Cardio: COMMON NORMALS: regular rate, regular rhythm, S1 normal heart sound present, S2 normal heart sound present, No gallops present (Cardio), No murmurs present (Cardio), No rub (Cardio) and Peripheral pulses 2+ throughout RATE: regular rate RHYTHM: regular rhythm HEART SOUNDS: S1 normal heart sound present and S2 normal heart sound present PERIPHERAL PULSES: Peripheral pulses 2+ throughout GI: COMMON NORMALS: Normal to inspection, nondistended, normoactive bowel sounds present, Soft to palpation, non-tender, No hepatosplenomegaly present and no masses AUSCULTATION: Yes normoactive bowel sounds PALPATION: Yes Soft to palpation and Yes No hepatosplenomegaly present RECTAL EXAM: Yes deferred Extremity: NARRATIVE EXTREMITY EXAM: Trace B/L L/E Pitting edema Neuro: COMMON NORMALS: patient oriented x3 Urinary Catheter Management^: Hawkins: Cath Placed During This Visit: yes Urinary Catheter Date of Insertion: 06/11/20 Urinary Catheter Time of Insertion: 09:22 Data : 06/11/20 06:50 06/11/20 06:50 Micro: Microbiology 06/11/20 08:45 Blood Culture - Preliminary Blood SPECIMEN COLLECTED 06/11/20 08:45 Blood Culture - Preliminary Blood SPECIMEN COLLECTED A&P Assessment and plan (1) Acute respiratory failure with hypoxia: Acute respiratory failure with hypoxia likely secondary to bacterial/viral pneumonia: 84 year old male with past medical history of hypertension, peripheral artery disease, came in with chief complaint of worsening shortness of breath,as well as non productive cough for last for 4 days. Ceftriaxone 1 Gm I.V Q24 H Daily Azithromycin 500 mg I.V Daily Supplemental oxygen as needed. Status: Acute (2) COVID-19: H/O Covid PNA. Status: Acute (3) CHERI (acute kidney injury): Status: Acute (4) Elevated lactic acid level: Status: Acute (5) Elevated d-dimer: Status: Acute (6) Elevated brain natriuretic peptide (BNP) level: Status: Acute (7) Hypothyroidism: Continue Levothyroxine. Status: Acute (8) Adrenal insufficiency: Secondary adrenal insufficiency. Continue Hydrocortisone 20 mg oral daily. Status: Acute (9) Hypertension: Status: Acute (10) Peripheral arterial disease: Status: Acute Additional A&P Information DVT PPX: On lovenox 40 mg sc daily Code status :Full Code Disposition : Home Attestations Medical Necessity Statement*: Patient needs to be in hospital for the management of aC hpoxic respiratory failure secondary to bacterial possible viral pneumonia. Anticipated length of stay greater than 2 midnights Coding Level of Care Code Acute Laboratory Sampler for Chg Fwd Diagnoses Acute respiratory failure with hypoxia J96.01 COVID-19 U07.1 CHERI (acute kidney injury) N17.9 Elevated lactic acid level R79.89 Elevated d-dimer R79.89 Elevated brain natriuretic peptide (BNP) level R79.89 Hypothyroidism E03.9 Adrenal insufficiency E27.40 Hypertension I10 Peripheral arterial disease I73.9
--- NOTE | 2020-06-11 12:48 | ECG_ITS ---
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 Measurements Intervals [place] Rate: 96 P: 10 [place]: 149 QRS: 34 QRSD: 106 T: 41 QT: 369 QTc: 467 Interpretive Statements SINUS RHYTHM INDETERMINATE AXIS Compared to ECG 06/11/2020 08:44:19 Sinus tachycardia no longer present Incomplete right bundle-branch block no longer present T-wave abnormality no longer present Possible ischemia no longer present Electronically Signed On 06-11-2020 16:47:16 INSPECTOR AIR CARRIER by Jaspreet Luna M.D. [id number]
[2020-06-11] MEDS: cefTRIAXone 1,000 MG in sodium chloride 0.9% (plus) 50 ML 100 MG IV (12:53)
[2020-06-11 13:40] LABS: Lactic Acid level (Lactate) 2.9 mmol/L (0.5-2.2)
[2020-06-11 13:42] LABS: Troponin 5 6HR 24.09 ng/L (0-15)
[2020-06-11 13:59] LABS: Troponin 5 6HR Delta -0.91 ng/L (0-12)
--- NOTE | 2020-06-11 14:36 | PC.NURSE ---
EKG done at 1416 and shown to ER doctor
[2020-06-11] MEDS: D5-NS 0.45% + KCL 20 mEq 20 MEQ/1,000 ML BAG 100 MEQ IV (16:48)
[2020-06-11] MEDS: enoxaparin 40 mg/0.4 mL Syringe SUBCUT (17:12)
[2020-06-11] MEDS: azithromycin 500 MG in sodium chloride 0.9% 250 ML 250 MG IV (17:13)
[2020-06-11 17:19] LABS: Glucose Point of Care 131 mg/dL (70-110)
[2020-06-12] VITALS (8 sets, daily range): BP systolic 128–175; BP diastolic 66–91; PULSE 3–87; RESP 16–18; TEMP 36.5–38.3; O2SAT 94–97
[2020-06-12] MEDS: D5-NS 0.45% + KCL 20 mEq 20 MEQ/1,000 ML BAG 100 MEQ IV ×2 (04:33→17:43)
[2020-06-12 04:45] LABS: Basophils % 0.3 %; Eosinophils # 0.1 10^3/uL (0.0-0.8); Hematocrit 40.1 % (42.0-52.0); Hemoglobin 12.6 g/dL (11.7-16.6); Lymphocytes # 1.1 10^3/uL (0.8-4.8); Lymphocytes % 19.3 %; Mean Corpuscular HGB Conc 31.4 g/dL (30.0-36.0); Mean Corpuscular Hemoglobin 30.5 pg (28.0-34.0); Mean Corpuscular Volume 97.1 fL (80-94); Mean Platelet Volume 9.8 fL (7.4-10.4); Monocytes # 1.1 10^3/uL (0.2-0.9); Monocytes % 18.9 %; Neutrophils # 3.48 10^3/uL (1.8-7.7); Neutrophils % 58.8 %; Nucleated Red Blood Cells % 0 %; Platelet Count 148 10^3/cmm (130-400); Red Blood Count 4.13 10^6/uL (4.1-5.3); Red Cell Distribution Width 13.6 % (12.1-15.1); White Blood Count 5.9 10^3/uL (4.0-10.0)
[2020-06-12 05:18] LABS: NT Pro B Type Natriuretic Pept 1056 pg/mL (0-450); Procalcitonin 0.13 ng/mL (0-0.5)
[2020-06-12 05:30] LABS: INR 1.24 (0.8-1.2)
[2020-06-12 05:31] LABS: Alanine Aminotransferase 12 U/L (0-41); Albumin Level 3.4 g/dL (3.5-5.2); Alkaline Phosphatase 33 IU/L (40-130); Aspartate Amino Transferase 28 U/L (0-40); Blood Urea Nitrogen 11 mg/dL (8-23); Carbon Dioxide 28 mmol/L (22-29); Chloride 99 mmol/L (98-107); Globulin 2.8 g/dL (1.3-4.6); Glucose 140 mg/dL (65-115); Magnesium 1.9 mg/dL (1.7-2.3); Osmolality Calculated 282 mOsm/kg (285-295); Sodium 135 mmol/L (136-145); Total Bilirubin 0.4 mg/dL (0.15-1.2); Total Protein 6.2 g/dL (6.6-8.7)
[2020-06-12] MEDS: levothyroxine 112 mcg Tablet PO (06:20)
[2020-06-12] MEDS: hydrocortisone 10 mg Tablet 20 MG PO ×2 (09:06→12:32)
[2020-06-12] MEDS: cefTRIAXone 1,000 MG in sodium chloride 0.9% (plus) 50 ML 100 MG IV (12:31)
[2020-06-12] MEDS: aspirin 81 mg Chew Tablet PO (12:32)
--- NOTE | 2020-06-12 13:11 | P.PN_ITS ---
Subjective Subjective: Interval history: is currently on 4Ls oxygen via NC and is saturating above 90 %. His T max was : 100.9.Has Good urine output: 2.7 L Other Vitals and labs have been reviewed Medications: Reviewed: Yes Vitals/I&O/Wt Last Vital Signs Temp 98.8 F 06/12/20 07:37 Pulse 78 06/12/20 08:00 Resp 16 06/12/20 07:37 BP 129/76 06/12/20 07:37 Pulse Ox 95 06/12/20 07:37 06/11/20 06/12/20 06/12/20 22:59 06:59 14:59 Intake Total 170 / 680 1000 / 1680 120 / 120 Output Total 900 / 900 600 / 1500 700 / 700 Balance -730 / -220 400 / 180 -580 / -580 Weight last 48 hrs Weight 117.934 kg Physical Exam Const: COMMON NORMALS: patient oriented x3 HENMT: COMMON NORMALS: normocephalic and atraumatic HEAD & SCALP: n ormocephalic and atraumatic Chest: COMMONS NORMALS: normal inspection of the chest and normal palpation of entire chest wall CHEST: Yes Symmetrical chest wall rise Resp: COMMON NORMALS: normal respiratory effort, No retractions, No use of ac cessory muscles and clear to auscultation bilaterally EFFORT & INSPECTION: Yes symmetric chest movement AUSCULTATION: clear to auscultation bilaterally Cardio: COMMON NORMALS: regular rate, regular rhythm, S1 normal heart sound present, S2 normal heart sound present, No gallops present (Cardio), No murmurs present (Cardio), No rub (Cardio) and Peripheral pulses 2+ throughout RATE: regular rate RHYTHM: regular rhythm HEART SOUNDS: S1 normal heart sound present and S2 normal heart sound present PERIPHERAL PULSES: Peripheral pulses 2+ throughout GI: COMMON NORMALS: Normal to inspection, nondistended, normoactive bowel sounds present, Soft to palpation, non-tender, No hepatosplenomegaly present and no masses AUSCULTATION: Yes normoactive bowel sounds PALPATION: Yes Soft to palpation and Yes No hepatosplenomegaly present RECTAL EXAM: Yes deferred Extremity: COMMON NORMALS: no clubbing, cyanosis or edema and no pedal edema Neuro: COMMON NORMALS: patient oriented x3 Urinary Catheter Management^: Hawkins: Cath Placed During This Visit: yes Reason for Continuing Indwelling Catheter: Accurate Measurement of Urinary Output in Critically Ill Patients Urinary Catheter Date of Insertion: 06/11/20 Urinary Catheter Time of Insertion: 09:22 Data : 06/12/20 04:20 06/12/20 04:20 Micro: Microbiology 06/11/20 08:45 Blood Culture - Preliminary Blood NEGATIVE TO DATE 06/11/20 08:45 Blood Culture - Preliminary Blood NEGATIVE TO DATE A&P Assessment and plan (1) Acute respiratory failure with hypoxia: Acute respiratory failure with hypoxia likely secondary to bacterial/viral pneumonia/Atypical /r/o other causes 84 year old male with past medical history of hypertension, peripheral artery disease, came in with chief complaint of worsening shortness of breath,as well as non productive cough for last for 4 days. lactic Acid : 3.2, Repeat am lactic acid Procal : 0.13 Blood Culture :NTD U/A :Clean CTA Chest : Residual atelectasis right lung with interstitial thickening or atelectasis lower lungs. No P.E Continue Ceftriaxone 1 Gm I.V Q24 H Daily Azithromycin 500 mg I.V Daily Supplemental oxygen as needed to maintain SPO2 >95 % Status: Acute (2) COVID-19: H/O Covid Infection No Indications for Remdesivir for Now. Status: Acute (3) CHERI (acute kidney injury): Resolved Status: Acute (4) Elevated lactic acid level: Status: Acute (5) Elevated d-dimer: 1.69 Status: Acute (6) Elevated brain natriuretic peptide (BNP) level: Status: Acute (7) Hypothyroidism: Continue Levothyroxine. Status: Acute (8) Adrenal insufficiency: Secondary adrenal insufficiency. Continue Hydrocortisone 20 mg oral daily. Status: Acute (9) Hypertension: Status: Acute (10) Peripheral arterial disease: Status: Acute Additional A&P Information DVT PPX: On lovenox 40 mg sc daily Code status :Full Code Disposition : Home Attestations Medical Necessity Statement*: Patient needs to be in hospital for the management of R/F Coding Level of Care Code Acute Special Warfare Boat Operator for Jose Rojas Diagnoses Acute respiratory failure with hypoxia J96.01 COVID-19 U07.1 CHERI (acute kidney injury) N17.9 Elevated lactic acid level R79.89 Elevated d-dimer R79.89 Elevated brain natriuretic peptide (BNP) level R79.89 Hypothyroidism E03.9 Adrenal insufficiency E27.40 Hypertension I10 Peripheral arterial disease I73.9
[2020-06-12] MEDS: azithromycin 500 MG in sodium chloride 0.9% 250 ML 250 MG IV (17:42)
[2020-06-12] MEDS: enoxaparin 40 mg/0.4 mL Syringe SUBCUT (17:43)
--- NOTE | 2020-06-12 18:54 | PC.NURSE ---
SHIFT SUMMARY PT HAD THOMPSON REMOVED, PT HAS URINATED MULTIPLE TIMES SINCE THOMPSON REMOVAL AT APPROXIMATELY 1130AM. PT HAS BEEN CONTINENT HES USED BATHROOM AND URINAL WITHOUT TROUBLE. NO COMPLAINTS OF PAIN, DISCOMFORT, OR SOB.
[2020-06-13] VITALS (7 sets, daily range): BP systolic 140–168; BP diastolic 66–97; PULSE 72–77; RESP 16–20; TEMP 36.6–37.2; O2SAT 94–98
[2020-06-13 05:27] LABS: Basophils % 0.2 %; Hematocrit 38.9 % (42.0-52.0); Hemoglobin 12.5 g/dL (11.7-16.6); Lymphocytes # 1.5 10^3/uL (0.8-4.8); Lymphocytes % 32.9 %; Mean Corpuscular HGB Conc 32.1 g/dL (30.0-36.0); Mean Corpuscular Hemoglobin 30.8 pg (28.0-34.0); Mean Corpuscular Volume 95.8 fL (80-94); Mean Platelet Volume 9.5 fL (7.4-10.4); Monocytes # 0.7 10^3/uL (0.2-0.9); Monocytes % 15.9 %; Neutrophils # 2.24 10^3/uL (1.8-7.7); Neutrophils % 50.8 %; Nucleated Red Blood Cells % 0 %; Platelet Count 140 10^3/cmm (130-400); Red Blood Count 4.06 10^6/uL (4.1-5.3); Red Cell Distribution Width 13.4 % (12.1-15.1); White Blood Count 4.4 10^3/uL (4.0-10.0)
[2020-06-13 05:35] LABS: D Dimer 0.99 ug/mIFEU (0-0.59)
[2020-06-13 05:43] LABS: Lactate (Lactic Acid level) 1.2 mmol/L (0.5-2.2)
[2020-06-13 05:46] LABS: Alanine Aminotransferase 15 U/L (0-41); Albumin Level 3.2 g/dL (3.5-5.2); Alkaline Phosphatase 31 IU/L (40-130); Anion Gap 10.2 (5-19); Aspartate Amino Transferase 30 U/L (0-40); Blood Urea Nitrogen 10 mg/dL (8-23); Calcium 8.3 mg/dL (8.5-10.5); Carbon Dioxide 28 mmol/L (22-29); Chloride 104 mmol/L (98-107); Globulin 2.9 g/dL (1.3-4.6); Glucose 140 mg/dL (65-115); Osmolality Calculated 287 mOsm/kg (285-295); Potassium 4.2 mmol/L (3.5-5.1); Sodium 138 mmol/L (136-145); Total Bilirubin 0.3 mg/dL (0.15-1.2); Total Protein 6.1 g/dL (6.6-8.7)
[2020-06-13] MEDS: levothyroxine 112 mcg Tablet PO (06:18)
--- NOTE | 2020-06-13 06:21 | PC.NURSE ---
SHIFT SUMMARY Has rested well without c/o. Very pleasant and talkative. When talking with him he is alert and oriented but has gotten 2 IV's pulled out tonight. Gets tangled ughp when trying to get up to go to the bathroom and has had gown all twisted and tangled as well tonight. Bed alarm has been used to remind pt to call for assist to bathroom. IV fluids infusing at 100ml/hr rate. Voiding well. Has denied pain or SOB. O2 in place at 3.5l NC. Occ cou
[2020-06-13] MEDS: hydrocortisone 10 mg Tablet 20 MG PO ×2 (09:13→13:43)
--- NOTE | 2020-06-13 09:47 | PC.CHAP ---
Pastoral Care Encounter/Spiritual Assessment Type of Contact [] Declined hebrew professor visit [] Patient/Family/Request visit [] Outpatient visit [] Follow-up visit [] Physician referral [] Code/Alert [x] Routine visit [] Staff referral [] Actively dying [] Patient sleeping [] Family support [] [] Out of room [] Palliative care [] [] Receiving care in room [] Pre-surgical visit [] Trauma [] Long length of stay [] ICU visit [] Other: Relational/Emotional Strength [x] Patient feels connected with others/family/visitors/staff [] Distress [] Loneliness/isolation [] Abandonment Spirituality of Patient [x] Person of [place] []x Attends Voodoo of their [place] [x] Believes in Prayer [] Reads Bible or Evangelical materials [] There are Spiritual issues to be addressed Unloading Checker Interventions [x] Prayer [x] Active listening [] Non-anxious presence [] Spiritual/emotional support [] Crisis/trauma care [] Spiritual counseling [] Bereavement support [] Provided bereavement packet [x] Provided Bible/devotional materials [] Provided toy/stuffed animal, coloring book to patient or family member [] Provided Communion [] Anointing/[place] [] Salvation [x] Completed spiritual assessment [] Other: Impact on Illness or Injury [] Angry [] Fearful [] Anxious [] Often cries [] Exhaustion [] Unable to work [] Unable to attend latter-day [] Unable to walk/stand [] Unable to read [] Unable to drive [] Unable to eat/drink [] Unable to sleep [] Unable to be with family [] Patient intubated [] Other: Summary patient feeling much better Time spent with patient 15 min
[2020-06-13] MEDS: aspirin 81 mg Chew Tablet PO (13:43)
[2020-06-13] MEDS: cefTRIAXone 1,000 MG in sodium chloride 0.9% (plus) 50 ML 100 MG IV (13:43)
[2020-06-13] MEDS: D5-NS 0.45% + KCL 20 mEq 20 MEQ/1,000 ML BAG 100 MEQ IV (13:43)
--- NOTE | 2020-06-13 15:22 | P.PN_ITS ---
Subjective Subjective: Interval history: continues to be on 3ls oxygen via [place] . Deny any SOB,Cough,Fever. Vitals and labs have been reviewed. Medications: Reviewed: Yes Vitals/I&O/Wt Last Vital Signs Temp 98.0 F 06/13/20 12:00 Pulse 73 06/13/20 12:00 Resp 16 06/13/20 12:00 BP 151/76 06/13/20 12:00 Pulse Ox 97 06/13/20 12:00 06/13/20 06/13/20 06/13/20 06:59 14:59 22:59 Intake Total 1250 / 2920 240 / 240 Output Total 300 / 300 Balance 1250 / 1670 -60 / -60 Physical Exam Const: COMMON NORMALS: patient oriented x3 HENMT: COMMON NORMALS: normocephalic and atraumatic HEAD & SCALP: normocephalic and atraumatic Chest: CHEST: Yes Symmetrical chest wall rise Resp: COMMON NORMALS: normal respiratory effort and clear to auscultation bilaterally EFFORT & INSPECTION: Yes symmetric chest movement AUS CULTATION: clear to auscultation bilaterally Cardio: COMMON NORMALS: regular rate, regular rhythm, S1 normal heart sound present and S2 normal heart sound present RATE: regular rate RHYTHM: regular rhythm HEART SOUNDS: S1 normal heart sound present and S2 normal heart sound present GI: COMMON NORMALS: Normal to inspection, nondistended, normoactive bowel sounds present, Soft to palpation, non-tender, No hepatosplenomegaly present and no masses AUSCULTATION: Yes normoactive bowel sounds PALPATION: Yes Soft to palpation and Yes No hepatosplenomegaly present RECTAL EXAM: Yes deferred Extremity: COMMON NORMALS: no clubbing, cyanosis or edema and no pedal edema Neuro: COMMON NORMALS: patient oriented x3 Urinary Catheter Management^: Hawkins: Cath Placed During This Visit: yes, but has since been removed by the nurse Reason for Continuing Indwelling Catheter: Accurate Measurement of Urinary Output in Critically Ill Patients Urinary Catheter Date of Insertion: 06/11/20 Urinary Catheter Time of Insertion: 09:22 Date Urinary Catheter Removed: 06/12/20 Time Urinary Catheter Discontinued: 16:00 Data : 06/13/20 05:12 06/13/20 05:12 Micro: Microbiology 06/11/20 08:45 Blood Culture - Preliminary Blood NEGATIVE TO DATE 06/11/20 08:45 Blood Culture - Preliminary Blood NEGATIVE TO DATE A&P Assessment and plan (1) Acute respiratory failure with hypoxia: Acute respiratory failure with hypoxia likely secondary to bacterial/viral pneumonia/Atypical /r/o other causes 84 year old male with past medical history of hypertension, peripheral artery disease, came in with chief complaint of worsening shortness of breath,as well as non productive cough for last for 4 days. lactic Acid : 3.2, Repeat lactic acid :1.2 Procal : 0.13 Blood Culture :NTD U/A :Clean CTA Chest : Residual atelectasis right lung with interstitial thickening or atelectasis lower lungs. No P.E Continue Ceftriaxone 1 Gm I.V Q24 H Daily Azithromycin 500 mg I.V Daily Supplemental oxygen as needed to maintain SPO2 >95 % Status: Acute (2) COVID-19: H/O Covid Infection No Indications for Remdesivir for Now. Status: Acute (3) CHERI (acute kidney injury): Resolved Status: Acute (4) Elevated lactic acid level: Status: Acute (5) Elevated d-dimer: 1.69 Status: Acute (6) Elevated brain natriuretic peptide (BNP) level: Status: Acute (7) Hypothyroidism: Continue Levothyroxine. Status: Acute (8) Adrenal insufficiency: Secondary adrenal insufficiency. Continue Hydrocortisone 20 mg oral daily. Status: Acute (9) Hypertension: Status: Acute (10) Peripheral arterial disease: Status: Acute Additional A&P Information DVT PPX: On lovenox 40 mg sc daily Code status :Full Code Disposition : Home Attestations Medical Necessity Statement*: Patient needs to be in hospital for the managem ent of [facility]. Coding Level of Care Code Acute Cash Teller for Jose Rojas Diagnoses Acute respiratory failure with hypoxia J96.01 COVID-19 U07.1 CHERI (acute kidney injury) N17.9 Elevated lactic acid level R79.89 Elevated d-dimer R79.89 Elevated brain natriuretic peptide (BNP) level R79.89 Hypothyroidism E03.9 Adrenal insufficiency E27.40 Hypertension I10 Peripheral arterial disease I73.9
[2020-06-13] MEDS: azithromycin 500 MG in sodium chloride 0.9% 250 ML 250 MG IV (18:08)
[2020-06-13] MEDS: enoxaparin 40 mg/0.4 mL Syringe SUBCUT (18:09)
[2020-06-14] VITALS (8 sets, daily range): BP systolic 123–162; BP diastolic 70–94; PULSE 69–103; RESP 17–18; TEMP 36.5–37; O2SAT 92–97
[2020-06-14] MEDS: D5-NS 0.45% + KCL 20 mEq 20 MEQ/1,000 ML BAG 100 MEQ IV ×2 (03:47→17:18)
[2020-06-14] MEDS: levothyroxine 112 mcg Tablet PO (06:29)
[2020-06-14 06:32] LABS: Basophils % 0.2 %; Hematocrit 37.4 % (42.0-52.0); Hemoglobin 11.8 g/dL (11.7-16.6); Lymphocytes # 1.9 10^3/uL (0.8-4.8); Lymphocytes % 42.8 %; Mean Corpuscular HGB Conc 31.6 g/dL (30.0-36.0); Mean Corpuscular Hemoglobin 30.3 pg (28.0-34.0); Mean Corpuscular Volume 95.9 fL (80-94); Monocytes # 0.5 10^3/uL (0.2-0.9); Neutrophils # 1.98 10^3/uL (1.8-7.7); Neutrophils % 45.5 %; Nucleated Red Blood Cells % 0 %; Platelet Count 138 10^3/cmm (130-400); Red Cell Distribution Width 13.3 % (12.1-15.1); White Blood Count 4.4 10^3/uL (4.0-10.0)
--- NOTE | 2020-06-14 06:37 | PC.NURSE ---
SHIFT SUMMARY Has rested well. Is hoping to go home today. Denies any pain or discomfort. Has occ cough but denies any SOB. Accidentally pulled his IV out while getting up to bathroom tonight. New IV was restarted in right wrist. IV fluids infusing at 100ml/hr rate
[2020-06-14 06:59] LABS: Alanine Aminotransferase 17 U/L (0-41); Albumin Level 3.1 g/dL (3.5-5.2); Alkaline Phosphatase 31 IU/L (40-130); Anion Gap 11.1 (5-19); Aspartate Amino Transferase 28 U/L (0-40); Blood Urea Nitrogen 9 mg/dL (8-23); Calcium 8.2 mg/dL (8.5-10.5); Carbon Dioxide 28 mmol/L (22-29); Chloride 105 mmol/L (98-107); Globulin 2.7 g/dL (1.3-4.6); Glucose 114 mg/dL (65-115); Osmolality Calculated 290 mOsm/kg (285-295); Potassium 4.1 mmol/L (3.5-5.1); Sodium 140 mmol/L (136-145); Total Bilirubin 0.4 mg/dL (0.15-1.2); Total Protein 5.8 g/dL (6.6-8.7)
--- NOTE | 2020-06-14 14:16 | PM.PN ---
Subjective Subjective: Interval history: has no active complaint,He is doing fine , current plan is to take him off oxygen support and monitor . Vital and labs have reviewed. Medications: Reviewed: Yes Vitals/I&O/Wt Last Vital Signs Temp 97.7 F 06/14/20 11:10 Pulse 71 06/14/20 11:10 Resp 18 06/14/20 11:10 BP 142/86 06/14/20 11:10 Pulse Ox 96 06/14/20 11:10 06/13/20 06/14/20 06/14/20 22:59 06:59 14:59 Intake Total 240 / 720 1200 / 1920 470 / 470 Balance 240 / 420 1200 / 1620 470 / 470 Physical Exam Const: COMMON NORMALS: patient oriented x3 HENMT: COMMON NORMALS: normocephalic and atraumatic HEAD & SCALP: normocephalic and atraumatic Chest: CHEST: Yes Symmetrical chest wall rise Resp: COMMON NORMALS: normal respiratory effort, No retractions, No use of accessory muscles and clear to auscultation bilaterally EFFORT & INSPECTION: Yes symmetric chest movement AUSCULTATION: clear to auscultation bilaterally Cardio: COMMON NORMALS: regular rate, regular rhythm, S1 normal heart sound present, S2 normal heart sound present, No gallops present (Cardio), No murmurs present (Cardio), No rub (Cardio) and Peripheral pulses 2+ throughout RATE: regular rate RHYTHM: regular rhythm HEART SOUNDS: S1 normal heart sound present and S2 normal heart sound present PERIPHERAL PULSES: Peripheral pulses 2+ throughout GI: COMMON NORMALS: Normal to inspection, nondistended, normoactive bowel sounds present, Soft to palpation, non-tender, No hepatosplenomegaly present and no masses AUSCULTATION: Yes normoactive bowel sounds PALPATION: Yes Soft to palpation and Yes No hepatosplenomegaly present RECTAL EXAM: Yes deferred Extremity: COMMON NORMALS: no clubbing, cyanosis or edema and no pedal edema Neuro: COMMON NORMALS: patient oriented x3 Urinary Catheter Management^: Hawkins: Cath Placed During This Visit: yes, but has since been removed by the nurse Reason for Continuing Indwelling Catheter: Accurate Measurement of Urinary Output in Critically Ill Patients Urinary Catheter Date of Insertion: 06/11/20 Urinary Catheter Time of Insertion: 09:22 Date Urinary Catheter Removed: 06/12/20 Time Urinary Catheter Discontinued: 16:00 Data : 06/14/20 05:00 06/14/20 05:00 A&P Assessment and plan (1) Acute respiratory failure with hypoxia: Acute respiratory failure with hypoxia likely secondary to bacterial/viral pneumonia/Atypical /r/o other causes 84 year old male with past medical history of hypertension, peripheral artery disease, came in with chief complaint of worsening shortness of breath,as well as non productive cough for last for 4 days. lactic Acid : 3.2, Repeat lactic acid :1.2 Procal : 0.13 Blood Culture :NTD U/A :Clean CTA Chest : Residual atelectasis right lung with interstitial thickening or atelectasis lower lungs. No P.E Continue Ceftriaxone 1 Gm I.V Q24 H Daily Azithromycin 500 mg I.V Daily Supplemental oxygen as needed to maintain SPO2 >95 % Status: Acute (2) COVID-19: H/O Covid Infection No Indications for Remdesivir for Now. Status: Acute (3) CHERI (acute kidney injury): Resolved Status: Acute (4) Elevated lactic acid level: Status: Acute (5) Elevated d-dimer: 1.69 Status: Acute (6) Elevated brain natriuretic peptide (BNP) level: Status: Acute (7) Hypothyroidism: Continue Levothyroxine. Status: Acute (8) Adrenal insufficiency: Secondary adrenal insufficiency. Continue Hydrocortisone 20 mg oral daily. Status: Acute (9) Hypertension: Status: Acute (10) Peripheral arterial disease: Status: Acute Additional A&P Information DVT PPX: On lovenox 40 mg sc daily Code status :Full Code Disposition : Home Attestations Medical Necessity Statement*: Patient needs to be in hospital for the management of R/F 2/2 atypical PNA . Coding Level of Care Code Acute Horse Breeder for [facility] Fwd Diagnoses Acute respiratory failure with hypoxia J96.01 COVID-19 U07.1 CHERI (acute kidney injury) N17.9 Elevated lactic acid level R79.89 Elevated d-dimer R79.89 Elevated brain natriuretic peptide (BNP) level R79.89 Hypothyroidism E03.9 Adrenal insufficiency E27.40 Hypertension I10 Peripheral arterial disease I73.9
[2020-06-14] MEDS: cefTRIAXone 1,000 MG in sodium chloride 0.9% (plus) 50 ML 100 MG IV (15:26)
[2020-06-14] MEDS: hydrocortisone 10 mg Tablet 20 MG PO ×2 (15:26→15:27)
[2020-06-14] MEDS: aspirin 81 mg Chew Tablet PO (15:27)
--- NOTE | 2020-06-14 17:08 | PC.SOCIAL ---
IMM Update Pg. 2 of IMM updated and reviewed with patient who verbalized understanding. Copy provided.
[2020-06-14] MEDS: azithromycin 500 MG in sodium chloride 0.9% 250 ML 250 MG IV (17:19)
[2020-06-14] MEDS: enoxaparin 40 mg/0.4 mL Syringe SUBCUT (17:21)
[2020-06-15 03:27] VITALS: BP 162/73; PULSE 76; RESP 18; TEMP 36.6; O2SAT 90
[2020-06-15] MEDS: D5-NS 0.45% + KCL 20 mEq 20 MEQ/1,000 ML BAG 100 MEQ IV (04:50)
[2020-06-15 05:26] LABS: Basophils % 0.6 %; Eosinophils # 0.1 10^3/uL (0.0-0.8); Eosinophils % 1.2 %; Hematocrit 40.2 % (42.0-52.0); Hemoglobin 12.5 g/dL (11.7-16.6); Lymphocytes # 2.2 10^3/uL (0.8-4.8); Mean Corpuscular HGB Conc 31.1 g/dL (30.0-36.0); Mean Corpuscular Hemoglobin 30.7 pg (28.0-34.0); Mean Corpuscular Volume 98.8 fL (80-94); Mean Platelet Volume 9.6 fL (7.4-10.4); Monocytes # 0.5 10^3/uL (0.2-0.9); Monocytes % 10.2 %; Neutrophils # 2.27 10^3/uL (1.8-7.7); Neutrophils % 44.6 %; Nucleated Red Blood Cells % 0 %; Platelet Count 152 10^3/cmm (130-400); Red Blood Count 4.07 10^6/uL (4.1-5.3); Red Cell Distribution Width 13.2 % (12.1-15.1); White Blood Count 5.1 10^3/uL (4.0-10.0)
--- NOTE | 2020-06-15 05:57 | PC.NURSE ---
SHIFT SUMMARY Has had a good night. Very pleasant. To bathroom several times to urinate but has had no diarrhea this shift. IV infusing without difficulty. Is hoping to go home today
[2020-06-15 06:08] LABS: Alanine Aminotransferase 21 U/L (0-41); Albumin Level 3.4 g/dL (3.5-5.2); Alkaline Phosphatase 34 IU/L (40-130); Anion Gap 12.1 (5-19); Aspartate Amino Transferase 31 U/L (0-40); Blood Urea Nitrogen 8 mg/dL (8-23); Calcium 8.2 mg/dL (8.5-10.5); Carbon Dioxide 27 mmol/L (22-29); Chloride 104 mmol/L (98-107); Glucose 127 mg/dL (65-115); Osmolality Calculated 288 mOsm/kg (285-295); Potassium 4.1 mmol/L (3.5-5.1); Sodium 139 mmol/L (136-145); Total Bilirubin 0.4 mg/dL (0.15-1.2); Total Protein 6.4 g/dL (6.6-8.7)
[2020-06-15 07:43] VITALS: BP 164/91; PULSE 72; RESP 18; TEMP 36.2; O2SAT 93
[2020-06-15] MEDS: hydrocortisone 10 mg Tablet 20 MG PO ×2 (09:26→13:15)
[2020-06-15] MEDS: levothyroxine 112 mcg Tablet PO (09:27)
[2020-06-15 09:59] VITALS: O2SAT 87; O2SAT 90; O2SAT 95
[2020-06-15 10:56] VITALS: BP 161/50; PULSE 73; RESP 18; TEMP 36.7; O2SAT 96
--- NOTE | 2020-06-15 11:01 | P.DS_ITS ---
Discharge Providers Date of Admission: 06/11/20 08:55 Date of Discharge: June 15, 2020 Attending Provider at Admission: Sina Sweet MD Attending Provider at Discharge: Sina Sweet MD Primary Care Provider: Jose David Wiggins Jr, MD Diagnoses at Discharge Discharge Diagnosis (1) Acute respiratory failure with hypoxia: Status: Chronic (2) COVID-19: Status: Chronic (3) CHERI (acute kidney injury): Status: Resolved (4) Hypothyroidism: Status: Chronic (5) Adrenal insufficiency: Status: Chronic (6) Hypertension: Status: Chronic Reason for Visit Reason for Visit: DYSPNEA AND WEAKNESS Hospital Course Hospital Course 84 year old male with past medical history of COVID 19 Infection, hypertension, 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 Patient was diagnosed with Covid early April and was discharged home, he was not using any home oxygen and for the most part he was doing fine, post discharge. Upon arrival in the ER he was worked up for the ab ove complaint. Imaging studies: CTA chest: No pulmonary embolism.Residual atelectasis right lung with interstitial thickening or atelectasis lower lungs. Stable right middle lobe and left lower lobe nodules dating back to 2016 most probably benign. X-ray chest: Similar appearance of the chest with linear atelectasis or scarring right mid lung. EKG: Sinus tachycardia,INCOMPLETE RIGHT BUNDLE BRANCH BLOCK . Pertinent labs: D-dimer 1.69, WBC: 7, H&H: 14.1/ 44 , BUN / serum creatinine : 16/1.3 , Lactic acid:3.2 , Troponin: Baseline: 25, 2-hour: 25.8, delta 2-hour:0.88 ,Troponin 6 H: 24 Delta 6 H : -0.91 proBNP: 673. ABG: On the day of admission was : Ph: 7.44, PCO2: 40, PO2: 61, FIO2:10Ls Urinalysis: Clean. He was admitted for the management of Acute respiratory failure with hypoxia likely secondary to bacterial/viral. pneumonia.lactic Acid : 3.2, Repeat lactic acid :1.2 Procal : 0.13 Blood Culture :Negative. He was continued of Ceftriaxone 1 Gm I.V Q24 H Daily as well as on Azithromycin 500 mg I.V Daily. As well as Supplemental oxygen as needed.At the time of discharge his SOB has markedly improved and his supplemental oxygen requirement was down to 2ls.He qualified for 2ls oxygen via [place] based on 6 mins walk test on discharge.Given his atypical presentation of PNA and being long out of the window period he was not a candidate for Remdesivir. He also had CHERI on admission which was managed with I.V hydration as well as encouraging PO intake.His SCR has returned to baseline on discharge. He was also managed for his other comorbid conditions. Patient was discharged in stable condition to home. Blood Cultures :Were negative Physical Exam Const: COMMON NORMALS: patient oriented x3 HENMT: COMMON NORMALS: normocephalic and atraumatic HEAD & SCALP: normocephalic and atraumatic Chest: COMMONS NORMALS: normal inspection of the chest CHEST: Yes Symmetrical chest wall rise Resp: COMMON NORMALS: normal respiratory effort and clear to auscultation bilaterally EFFORT & INSPECTION: Yes symmetric chest movement AUSCULTATION: clear to auscultation bilaterally Cardio: COMMON NORMALS: regular rate, regular rhythm, S1 normal heart sound present, S2 normal heart sound present, No gallops present (Cardio), No murmurs present (Cardio), No rub (Cardio) and Peripheral pulses 2+ throughout RATE: regular rate RHYTHM: regular rhythm HEART SOUNDS: S1 normal heart sound present and S2 normal heart sound present PERIPHERAL PULSES: Peripheral pulses 2+ throughout GI: COMMON NORMALS: Normal to inspection, nondistended, normoactive bowel s ounds present, Soft to palpation, non-tender, No hepatosplenomegaly present and no masses AUSCULTATION: Yes normoactive bowel sounds PALPATION: Yes Soft to palpation and Yes No hepatosplenomegaly present RECTAL EXAM: Yes deferred Extremity: COMMON NORMALS: no clubbing, cyanosis or edema and no pedal edema Neuro: COMMON NORMALS: patient oriented x3 Urinary Catheter Management^: Hawkins: Cath Placed During This Visit: yes, but has since been removed by the nurse Reason for Continuing Indwelling Catheter: Accurate Measurement of Urinary Output in Critically Ill Patients Urinary Catheter Date of Insertion: 06/11/20 Urinary Catheter Time of Insertion: 09:22 Date Urinary Catheter Removed: 06/12/20 Time Urinary Catheter Discontinued: 16:00 Discharge Data Data Completed and Pending: Completed Studies During Hospitalization Category Date Time Status CT angio chest PE protcl [id number] Stat Cat Scan 06/11/20 07:34 Completed XR chest 1V javi ble [id number] Stat Exams 06/11/20 06:47 Completed Pending at discharge Category Date Time Status Blood Culture Sta t Lab 06/11/20 08:45 Results Sputum Culture an d Gram Stain Stat Lab 06/11/20 06:47 Uncollected Labs from last 24 hours 06/15/20 06/15/20 05:00 05:00 WBC 5.1 RBC 4.07 L Hgb 12.5 Hct 40.2 L MCV 98.8 H MCH 30.7 MCHC 31.1 RDW 13.2 Plt Count 152 MPV 9.6 Neut % (Auto) 44.6 Lymph % (Auto) 43.0 [place] % (Auto) 10.2 Eos % (Auto) 1.2 Baso % (Auto) 0.6 Neut # (Auto) 2.27 Lymph # (Auto) 2.2 [place] # (Auto) 0.5 Eos # (Auto) 0.1 Baso # (Auto) 0.0 Nucleated RBC % (a uto) 0 Nucleated RBCs # 0.0 Sodium 139 Potassium 4.1 Chloride 104 Carbon Dioxide 27 Anion Gap 12.1 BUN 8 Creatinine 0.8 GFR Calculation Not Reportable Glucose 127 H Calculated Osmolal ity 288 Calcium 8.2 L Total Bilirubin 0.4 AST 31 ALT 21 Alkaline Phosphata se 34 L Total Protein 6.4 L Albumin 3.4 L Globulin 3.0 Vitals: Last Vital Signs Temp 98.1 F 06/15/20 10:56 Pulse 73 06/15/20 10:56 Resp 18 06/15/20 10:56 BP 161/50 06/15/20 10:56 Pulse Ox 96 06/15/20 10:56 Discharge Plan Discharge Patient Disposition: Home Condition: Stable Prescriptions: Continued hydrocortisone 20 mg tablet See Rx Instructions .ROUTE .COMPLEX RF: 0 lisinopril 5 mg tablet 5 mg PO DAILY@12 RF: 0 aspirin 81 mg Tablet,Chewable 81 mg PO DAILY@12 RF: 0 levothyroxine 112 mcg Tablet 112 mcg PO DAILY@07 RF: 0 Discharge Orders: Discharge Order (Routine); Ordered 06/15/20 Ordered By: Sina Sweet Other Ambulatory Orders: DME: Oxygen (Order) Location: None Selected Ordered By: Sina Sweet Referrals: Rosalio Jo MD [Physician] - 06/30/20 3:00 pm Ivory Davis APN [Staff Physician] - 06/23/20 2:30 pm Discharge Diet: Low Salt Discharge Activity: Resume usual activity Patient Instructions: Acute Kidney Injury (DC), Using Oxygen at Home (GEN), Chronic Hypertension (DC) Discharge Attestations Time Spent in Discharge Care*: greater than 30 min Specific Discharge Activities: educating patient, educating and/or supporting family/caregiver, discussing with pcp/other providers, discussing with assistant case manager/social workers/dc planners, documenting/other paperwork and evaluating patient/reviewing data Status at Discharge: Cognitive status at discharge: cognitively intact , Behavioral status at discharge: cooperative , Functional status at discharge: independent ambulation Overall status at discharge: patient is back to baseline Quality Metrics Clinical Quality Measures During this hospital stay, did patient experience: None Coding Level of Care Code Acute Refrigeration Lead for g Fwd Diagnoses Acute respiratory failure with hypoxia J96.01 COVID-19 U07.1 CHERI (acute kidney injury) N17.9 Hypothyroidism E03.9 Adrenal insufficiency E27.40 Hypertension I10
[2020-06-15] MEDS: cefTRIAXone 1,000 MG in sodium chloride 0.9% (plus) 50 ML 100 MG IV (13:15)
[2020-06-15] MEDS: aspirin 81 mg Chew Tablet PO (13:16)
--- NOTE | 2020-06-15 15:00 | PC.NURSE ---
Reviewed patient discharge with patient and at this time. Patient and verbalized understanding of discharge instructions. Patient is A&Ox3. Respirations even and non-labored on 2 liter nasal cannula which was provided by [facility] for patient to go home on. Patient wheel chaired to private car.
[2020-06-15 15:14] VITALS: BP 161/50; PULSE 73; RESP 18; TEMP 36.7; O2SAT 96
== END 2020-06-15 15:00 | disposition home or self-care (01) | DRG 193 ==
LOC: ER 08:58 → ER IP 12:59 → MEDSURG 14:41
PROVIDERS: Admitting Provider Internal Medicine; Emergency Provider Family Medicine; PCP Family Medicine; Visit Provider Internal Medicine
DX: J18.9 Pneumonia, unspecified organism (principal); J96.01 Acute respiratory failure with hypoxia; N17.9 Acute kidney failure, unspecified; E87.2 Acidosis; E27.40 Unspecified adrenocortical insufficiency; I10 Essential (primary) hypertension; I73.9 Peripheral vascular disease, unspecified; Z86.19 Personal history of other infectious and parasitic diseases; R91.8 Other nonspecific abnormal finding of lung field; I45.10 Unspecified right bundle-branch block; E03.9 Hypothyroidism, unspecified; Z79.82 Long term (current) use of aspirin
CPT/HCPCS: 12345; 36415; 36416; 36600; 51702; 71045; 71275; 80051; 80053; 81001; 82330; 82550; 82805; 82962; 83605; 83735; 83880; 84145; 84484; 85025; 85378; 85610; 86140; 87040; 93005; 94640; 96372; 99283; J0456; J0696; J1650; J1956; J7050; J8499; Q9967

== ENCOUNTER → 2020-07-10 12:44 | Outpatient (BNVA) | payer MEDICARE, OTHER, SELFPAY | PROVIDERS: PCP Family Medicine; Visit Provider Internal Medicine Pulmonary Disease | DX: Z20.822 Contact with and (suspected) exposure to COVID-19 (principal) | CPT/HCPCS: 87635 ==

== ENCOUNTER 2020-07-14 12:58 | Outpatient (CLI) | payer MEDICARE, OTHER, SELFPAY ==
--- NOTE | 2020-07-14 12:45 | USCV_ITS ---
Katt Rashid Age: 84 Gender: M : 1935 Exam Date: 07/14/2020 13:23 Ordering Phys: Rosalio Jo MD Technologist: Nataliya Reed Exam Location: [facility] [place] Indication: SOB BP: 154 / 80 HR: 75 Rhythm: Sinus Technical Quality: Suboptimal MEASUREMENTS (Male / Female) Normal Values 2D ECHO LV Diastolic Diameter PLAX 3.5 cm 4.2 - 5.9 / 3.9 - 5.3 cm LV Systolic Diameter PLAX 2.4 cm IVS Diastolic Thickness 1.8 cm 0.6 - 1.0 / 0.6 - 0.9 cm IVS Systolic Thickness 2.1 cm LVPW Diastolic Thickness 1.9 cm 0.6 - 1.0 / 0.6 - 0.9 cm LVPW Systolic Thickness 2.3 cm LVOT Diameter 2.1 cm LV Ejection Fraction 2D Teich 63.5 % LV Ejection Fraction MOD 2C 53.9 % LV Ejection Fraction 2C AL 54.9 % LA Diameter 4.6 cm LA Width 4.5 cm LA Height 5.9 cm RA Width 4.4 cm RA Height 5.8 cm Aorta at Sinotubular Diameter 2.7 cm M-MODE LV Diastolic Diameter MM 4.6 cm 4.2 - 5.9 / 3.9 - 5.3 cm LV Systolic Diameter MM 2.7 cm LV Ejection Fraction MM Teich 73.3 % IVS Diastolic Thickness MM 1.4 cm 0.6 - 1.0 / 0.6 - 0.9 cm IVS Systolic Thickness MM 1.8 cm LVPW Diastolic Thickness MM 1.2 cm 0.6 - 1.0 / 0.6 - 0.9 cm LVPW Systolic Thickness MM 2.1 cm Aortic Annulus Diameter 3.4 cm LA Ao Ratio MM 1.3 MV E Point Septal Separation 0.6 cm DOPPLER AV Peak Velocity 116.0 cm/s LVOT Peak Velocity 74.0 cm/s AV Area Cont Eq vti 3.1 cm squared AV Area Cont Eq pk 2.1 cm squared MV Area PHT 5.0 cm squared Mitral E to A Ratio 0.7 MV E' Velocity 32.0 cm/s Mitral E to MV E' Ratio 4.9 Mitral E to LV E' Lateral Ratio 5.4 Mitral E to LV E' Septal Ratio 4.5 TR Peak Velocity 276.7 cm/s TR Peak Gradient 30.6 mmHg TV Peak E Velocity 115.0 cm/s Right Atrial Pressure 3.0 mmHg Pulmonary Artery Systolic Pressu 33.6 mmHg PV Peak Velocity 106.0 cm/s FINDINGS Left Ventricle Normal left ventricular size and systolic function with no regional wall motion abnormalities. Left ventricular ejection fraction is estimated at 60 %. Some features of grade 1 diastolic dysfunction. Right Ventricle Normal right ventricular size and systolic function. Right ventricular systolic pressure 33.6 mmHg. Right Atrium Normal right atrial size. Left Atrium Normal left atrial size. Mitral Valve Mild mitral annular calcification. Thickened mitral valve. No mitral valve stenosis. No mitral valve regurgitation. Aortic Valve Aortic valve not well visualized. No aortic valve stenosis. No aortic valve regurgitation. Tricuspid Valve Structurally normal tricuspid valve. Trace to mild tricuspid valve regurgitation. Pulmonic Valve Pulmonic valve not well visualized. Pericardium No pericardial effusion. Aorta Normal size aortic root and proximal ascending aorta. CONCLUSIONS 1. Normal left ventricular size and systolic function with no regional wall motion abnormalities. Left ventricular ejection fraction is estimated at 60 %. Some features of grade 1 diastolic dysfunction. 2. Normal right ventricular size and systolic function. 3. Pumonary artery pressure estimated at 34 mm Hg. 4. No significant change when compared to echocardiogram dated 07/29/2017. Adali Lopez MD (Electronically Signed) Final Date: 17 July 2020 18:08 S
--- NOTE | 2020-07-14 14:03 | PFTS_ITS ---
Date of Study:07/14/20 Date of Dictation: MECHANICS: Forced vital capacity (FVC) is reduced. Forced expiratory volume in one second (FEV1) is reduced. FEV1/FVC is normal. FLOW VOLUME LOOP: Narrowed with mild scooping. LUNG VOLUMES: Total lung capacity (TLC) is normal. Residual volume (RV) is increased. DIFFUSING CAPACITY FOR CARBON MONOXIDE: Normal. INTERPRETATION: The prebronchodilator spirometry is consistent with moderate restriction. Lung volumes are consistent with air trapping. The patient has nonspecific ventilatory limitation likely secondary to combination of obstructive and restrictive ventilatory defect. Gas exchange (DLCO) is normal. MTDD
== END 2020-07-14 12:59 | disposition home or self-care (01) ==
LOC: US 12:59
PROVIDERS: PCP Nurse Practitioner; Visit Provider Internal Medicine Pulmonary Disease
DX: M79.89 Other specified soft tissue disorders (principal); R06.02 Shortness of breath
CPT/HCPCS: 93306; 94010; 94618; 94726; 94729

== ENCOUNTER 2020-08-01 10:09 | Outpatient (CLI) | payer MEDICARE, OTHER, SELFPAY ==
--- NOTE | 2020-08-01 10:14 | MR_ITS ---
WS: [id number] MRI LEFT KNEE NONCONTRAST TECHNIQUE: Axial PD, coronal PD fat sat, coronal PD, sagittal PD, and sagittal PD fat-sat images obta ined. CLINICAL INFORMATION: PAIN IN LEFT KNEE COMPARISON: None. FINDINGS: Distal quadriceps and patella tendons are intact. Normal anterior cruciate ligament. Normal PCL. Diff use marked chronic thinning of the medial and lateral meniscus. Horizontal tear involving the posteri or horn medial meniscus. Moderate to advanced degenerative narrowing medial and lateral joint compart ments. Diffuse edema involving the medial tibial plateau likely due to contusion or repetitive microt rauma due to degenerative narrowing. Near [id number] articulation medial joint compartment. Medial and lateral collateral ligaments are intact. Prepatellar and infrapatellar subcutaneous soft tissue edema. Moderate to advanced chondromal acia patella. No subchondral edema in the patella. Normal popliteal fossa. MR/MR knee LT wo con* [id number] IMPRESSION: 1. Anterior and posterior cruciate ligaments are intact. 2. Advanced degenerative narrowing involving the medial and lateral joint comp artments with subchondral edema involving the medial tibial plateau. This is li janusz due to recent contusion versus repetitive microtrauma. 3. Advanced chondromalacia patella. No subchondral edema. 4. Marked chronic thinning of the medial and lateral meniscus. Chronic appeari ng horizontal tear involving the posterior horn medial meniscus.
--- NOTE | 2020-08-01 10:15 | XR_ITS ---
WS: [id number] KNEE LEFT TECHNIQUE: 2 views of the left knee CLINICAL INFORMATION: PAIN IN LEFT KNEE COMPARISON: None. FINDINGS: Normal anatomic alignment. Osteopenia. Soft tissue edema. Moderate suprapatellar effusion. Hypertroph ic patella. 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 No acute fractures. XR/XR knee LT 1-2V [id number] IMPRESSION: 1. Soft tissue edema with moderate suprapatellar effusion. 2. 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 3. No visualized fractures.
== END 2020-08-01 10:10 | disposition home or self-care (01) ==
LOC: RADWPI 10:12
PROVIDERS: PCP Nurse Practitioner; Visit Provider Nurse Practitioner
DX: R60.0 Localized edema (principal); M25.462 Effusion, left knee; M13.862 Other specified arthritis, left knee; S83.242A Other tear of medial meniscus, current injury, left knee, initial encounter; X58.XXXA Exposure to other specified factors, initial encounter; M22.42 Chondromalacia patellae, left knee
CPT/HCPCS: 73560; 73721

== ENCOUNTER 2020-08-15 13:56 | Outpatient (CLI) | payer MEDICARE, OTHER, SELFPAY ==
--- NOTE | 2020-08-15 14:15 | XRR_ITS ---
PROCEDURE INFORMATION: Exam: XR Chest Exam date and time: 08/15/2020 2:22 PM Age: 84 years old Clinical indication: Condition or disease; Lung condition and disease; Pneumonia; Additional info: Resolution of pneumonia TECHNIQUE: Imaging protocol: XR of the chest Views: 2 views. COMPARISON: CR XR chest 1V portable [id number] 06/11/2020 7:18 AM FINDINGS: Lungs: Low lung volumes seen. Lungs are otherwise clear. No consolidation. Pleural spaces: There is a pleural thickening seen in the minor fissure. This finding decreased since prior. There is elevation of the right hemithorax. No pleural effusion. No pneumothorax. Heart/Mediastinum: Unremarkable. No cardiomegaly. Bones/joints: Unremarkable. XR/XR chest 2V* [id number] IMPRESSION: No acute findings. Pleural thickening minor fissure decreased since prior
== END 2020-08-15 13:57 | disposition home or self-care (01) ==
PROVIDERS: PCP Nurse Practitioner; Visit Provider Internal Medicine Pulmonary Disease
DX: J18.9 Pneumonia, unspecified organism (principal)
CPT/HCPCS: 71046

== ENCOUNTER 2020-09-01 20:00 | Outpatient (CLI) | payer MEDICARE, OTHER, SELFPAY | END 2020-09-01 20:01 | disposition home or self-care (01) | LOC: SLEEP 09-02 09:10 | PROVIDERS: PCP Nurse Practitioner; Visit Provider Internal Medicine Pulmonary Disease | DX: G47.34 Idiopathic sleep related nonobstructive alveolar hypoventilation (principal); R53.83 Other fatigue; R06.83 Snoring; G47.33 Obstructive sleep apnea (adult) (pediatric) | CPT/HCPCS: 95810 ==

== ENCOUNTER 2020-09-09 02:31 | Inpatient (IN) | payer MEDICARE, OTHER, SELFPAY ==
[2020-09-09] VITALS (158 sets, daily range): BP systolic 84–194; BP diastolic 45–95; PULSE 74–107; RESP 0–44; TEMP 37.1–39.7; O2SAT 71–100; BMI 32.1
--- NOTE | 2020-09-09 02:32 | XR_ITS ---
WS: [id number] Exam: XR chest 1V portable [id number] Date/Time of Exam: 09/09/2020 2:20 AM Reason For Exam: fever No acute infiltrates noted. Chronic plaque atelectasis in the right base. Chronic elevation of the ri ght diaphragm. Heart size is top limits normal. The mediastinum and osseous thorax are intact. No ple ural effusion. XR/XR chest 1V portable [id number] IMPRESSION: 1. No acute cardiopulmonary finding. No significant change.
--- NOTE | 2020-09-09 02:32 | CTR_ITS ---
PROCEDURE INFORMATION: Exam: CT Head Without Contrast Exam date and time: 09/09/2020 2:20 AM Age: 84 years old Clinical indication: Altered mental status/memory loss and fever; Patient HX: AMS. Unresponsive. Fever. Hypertensive. TECHNIQUE: Imaging protocol: Computed tomography of the head without contrast. Radiation optimization: All CT scans at this facility use at least one of these dose optimization techniques: automated exposure control; mA and/or kV adjustment per patient size (includes targeted exams where dose is matched to clinical indication); or iterative reconstruction. COMPARISON: CT head wo con* [id number] 11/25/2018 10:02 AM RADIATION DOSE METRICS: Total DLP (mGy-cm): 825.84 FINDINGS: Brain: There is moderate hypodensity of the periventricular white matter. This is nonspecific, but a likely cause is small vessel ischemic disease. No abnormal intra-axial or extra-axial fluid collections are identified. There is no midline shift. No intracranial hemorrhage identified. Ventricles: The ventricles and sulci are moderately and diffusely prominent, compatible with global brain volume loss. Bones/joints: Unremarkable as visualized. Sinuses: Moderate patchy opacities in the ethmoid sinus. Small amount of opacity in the right maxillary sinus visualized right maxillary sinus posteriorly. Mastoid air cells: Visualized mastoid air cells are well aerated. Soft tissues: Unremarkable. CT/CT head wo con* [id number] IMPRESSION: 1. No acute intracranial abnormality identified. Radiation Dose CTDIVOL = (mGy): DLP = 825.84 (mGy-cm)
--- NOTE | 2020-09-09 02:33 | ECG_ITS ---
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 Measurements Intervals [place] Rate: 108 P: 21 NE: 189 QRS: 112 QRSD: 120 T: 23 QT: 344 QTc: 462 Interpretive Statements SINUS TACHYCARDIA POSSIBLE LEFT ATRIAL ENLARGEMENT [-0.1mV P WAVE IN V1/V2] INDETERMINATE AXIS POSSIBLE RIGHT VENTRICULAR HYPERTROPHY [SOME/ALL OF: PROMINENT R IN V1, LATE TRANSITION, RAD, DARRON, SSS] Compared to ECG 06/11/2020 14:16:55 Sinus rhythm no longer present Electronically Signed On 09-09-2020 18:15:01 CDT by Adali Lopez M.D. [id number]
[2020-09-09 02:46] LABS: Arterial Blood Gas Hematocrit 46.2 % (42-52); Base Excess ABG 0.5 mmol/L (-2.0-2.0); Blood Gas Allen Test Pos; Blood Gas Operator Identificat HARKR; Blood Gas Sample Site Radial, right; Blood Gas Sample Type Arterial; HCO3 ABG 25.4 mmol/L (22-26); Oxygen Device NC; PO2 ABG 67.3 mmHg (80.0-100.0)
[2020-09-09 02:57] LABS: Basophils % 0.5 %; Eosinophils # 0.2 10^3/uL (0.0-0.8); Eosinophils % 2.6 %; Hematocrit 46.6 % (42.0-52.0); Hemoglobin 15.2 g/dL (11.7-16.6); Lymphocytes # 0.7 10^3/uL (0.8-4.8); Lymphocytes % 10.8 %; Mean Corpuscular HGB Conc 32.6 g/dL (30.0-36.0); Mean Corpuscular Hemoglobin 30.5 pg (28.0-34.0); Mean Corpuscular Volume 93.6 fL (80-94); Mean Platelet Volume 10.1 fL (7.4-10.4); Monocytes # 0.4 10^3/uL (0.2-0.9); Monocytes % 6.5 %; Neutrophils # 5.23 10^3/uL (1.8-7.7); Neutrophils % 79.1 %; Nucleated Red Blood Cells % 0 %; Platelet Count 153 10^3/cmm (130-400); Red Blood Count 4.98 10^6/uL (4.1-5.3); Red Cell Distribution Width 13.3 % (12.1-15.1); White Blood Count 6.6 10^3/uL (4.0-10.0)
[2020-09-09 02:57] LABS: Glucose Point of Care 133 mg/dL (70-110)
[2020-09-09] MEDS: acetaminophen 325 mg Tablet 650 MG PO ×2 (03:09→21:21)
[2020-09-09 03:10] LABS: Add Urine Microscopic? NO
--- NOTE | 2020-09-09 03:12 | ED_ITS ---
HPI - Fall General: Chief Complaint: Fall Stated Complaint: fall Time Seen by Provider: 09/09/20 02:31 Source: patient and EMS Mode of arrival: EMS Limitations: altered mental status History of Present Illness: HPI Narrative: 84-year-old male came in by EMS for altered mental status along with a fall and fever. Spoke to patient's and she states that she had to bed at 9:00 and he states that he had been feeling ill and felt like he was getting the flu. She states she woke up and found him in the floor unresponsive. Patient arrived he will tell me his name and does an swer some questions but is quite confused. He had a fever of 103 upon arrival. He denies any pain anywhere and denies headache. He did had Covid in April and then pneumonia in May. His last known normal was 9 PM last night. He has had no vomiting or diarrhea. Review of Systems General: Reports: ROS unobtainable due to mental status PFS ED PFSH: Medical History Acute respiratory failure with hypoxia Adrenal insufficiency CHERI (acute kidney injury) COVID-19 Elevated brain natriuretic peptide (BNP) level Elevated d-dimer Elevated lactic acid level Hypertension Hypothyroidism Hypoxia Peripheral arterial disease Sepsis Thyroid disease Surgical History H/O brain surgery History of gastric surgery History of prostate surgery Family History Denies family history of Diabetes CAD (coronary artery disease) Clotting disorder Dementia Hyperlipidemia Psychiatric illness Chronic kidney disease (CKD) Suicide Anesthesia complication Bleeding disorder Family history of premature coronary artery disease Lung disease Cancer Hypertension Stroke Social History Smoking and tobacco status: former smoker Quit status (tobacco): has quit using tobacco Year quit tobacco: 1999 [id number] cig/pipe Second hand smoke exposure: No Smoking risk assessment/counseling performed?: Yes Alcohol intake: never Lives independently: Yes Household members: spouse Housing: House Marital status: service: No Current occupational status: retired Pets and animals: No History of recent travel: No Current gender identity: Male Physical Exam Const: COMMON NORMALS: no acute distress; negative for patient oriented x3 EXAM LIMITATIONS: altered mental status GENERAL APPEARANCE: lethargic and ill appearing ORIENTATION/CONSCIOUSNESS: Yes lethargic HENMT: COMMON NORMALS: normocephalic and atraumatic HEAD & SCALP: normocephalic and atraumatic Eye: COMMON NORMALS: Equal, round and reactive pupils present and EOMs intact bilaterally PUPIL: Yes Equal, round and reactive pupils present Neck/C-Spine: COMMON NORMALS: full ROM, supple and no meningeal signs Chest: COMMONS NORMALS: normal inspection of the chest and normal palpation of entire chest wall Resp: COMMON NORMALS: normal respiratory effort, No retractions, No use of accessory muscles and clear to auscultation bilaterally AUSCULTATION: clear to auscultation bilaterally Cardio: COMMON NORMALS: regular rhythm and No murmurs present (Cardio) RATE: tachycardic RHYTHM: regular rhythm GI: COMMON NORMALS: Normal to inspection, nondistended, normoactive bowel sounds present, Soft to palpation, non-tender and no masses PALPATION: Yes Soft to palpation Extremity: COMMON NORMALS: normal to inspection and full ROM Neuro: COMMON NORMALS: moves all extremities and no focal motor deficits; negative for patient oriented x3 SENSORIUM/ORIENTATION: Yes lethargic MENINGEAL SIGNS: Yes no meningeal signs Psych: COMMON NORMALS: negative for mental status grossly normal Skin: COMMON NORMALS: no rashes or lesions noted and no wounds GENERAL SKIN EXAM: no rashes or lesions noted Course Vital Signs: Vital signs: Vital Signs Temperature 102.9 F H 09/09/20 03:24 Pulse Rate 91 09/09/20 05:00 Respiratory Rate 24 H 09/09/20 05:00 Blood Pressure 113/69 09/09/20 05:00 Pulse Oximetry 90 09/09/20 05:00 MDM - Fall MDM Narrative: Medical decision making narrative: Maxime presents with altered mental status likely due to his fever. Patient is requiring more oxygen and could have a pneumonia. His white count here is normal his lactate is elevated. Patient had blood cultures drawn started on IV biotics. He has no headache or neck pain with no signs of meningitis. Patient's head CT here is normal. He now awake and answer most of my questions. Patient seen in the ER by hospitalist and will admit. Lab Data: Labs: Lab Results 09/09/20 09/09/20 09/09/20 Range/Units 01:55 01:55 01:55 WBC 6.6 (4.0-10.0) 10^3/ uL RBC 4.98 (4.1-5.3) 10^6/u L Hgb 15.2 (11.7-16.6) g/dL Hct 46.6 (42.0-52.0) % MCV 93.6 (80-94) fL MCH 30.5 (28.0-34.0) pg MCHC 32.6 (30.0-36.0) g/dL RDW 13.3 (12.1-15.1) % Plt Count 153 (130-400) 10^3/c mm MPV 10.1 (7.4-10.4) fL Neut % (Auto) 79.1 % Lymph % (Auto) 10.8 % Moore % (Auto) 6.5 % Eos % (Auto) 2.6 % Baso % (Auto) 0.5 % Neut # (Auto) 5.23 (1.8-7.7) 10^3/u L Lymph # (Auto) 0.7 L (0.8-4.8) 10^3/u L Moore # (Auto) 0.4 (0.2-0.9) 10^3/u L Eos # (Auto) 0.2 (0.0-0.8) 10^3/u L Baso # (Auto) 0.0 (0.0-0.1) 10^3/u L Nucleated RBC % (a uto) 0 % Nucleated RBCs # 0.0 /100WBC PT 14.20 (12.1-14.9) SECO NDS INR 1.06 (0.8-1.2) Specimen Type Sample Site ABG pH (7.35-7.45) ABG pCO2 (35-45) mmHg ABG pO2 (80.0-100.0) mmH g ABG HCO3 (22-26) mmol/L ABG Base Excess (-2.0-2.0) mmol/ L Neeraj Test Hematocrit (42-52) % O2 Delivery Device O2 Liters/Min % Perinatal Technician ID Sodium 138 (136-145) mmol/L Potassium 3.6 (3.5-5.1) mmol/L Chloride 99 (98-107) mmol/L Carbon Dioxide 27 (22-29) mmol/L Anion Gap 15.6 (5-19) BUN 16 (8-23) mg/dL Creatinine 1.0 (0.7-1.2) mg/dL GFR Calculation Not Reportable Glucose 128 H (65-115) mg/dL POC Glucose (70-110) mg/dL Calculated Osmolal ity 289 (285-295) mOsm/k g Lactate (0.5-2.2) mmol/L Calcium 8.6 (8.5-10.5) mg/dL Total Bilirubin 0.5 (0.15-1.2) mg/dL AST 29 (0-40) U/L ALT 23 (0-41) U/L Alkaline Phosphata se 41 (40-130) IU/L NT-Pro-B Natriuret Pep 599 H (0-450) pg/mL Total Protein 7.3 (6.6-8.7) g/dL Albumin 4.0 (3.5-5.2) g/dL Globulin 3.3 (1.3-4.6) g/dL TSH 0.27 (0.27-4.20) uIU/ mL Urine Color (Yellow) Urine Appearance (CLEAR) Urine pH (5-7) Ur Specific Gravit y (1.005-1.030) Urine Protein (Negative) Urine Glucose (UA) (Normal) Urine Ketones (Negative) Urine Blood (Negative) Urine Nitrate (Negative) Urine Bilirubin (Negative) Urine Urobilinogen (Negative) mg/dL Ur Leukocyte Kim ase (Negative) Influenza Type A A g (Negative) Influenza Type B A g (Negative) SARS-CoV-2 Ag (Rap id) (Negative) 09/09/20 09/09/20 09/09/20 Range/Units 01:55 02:44 02:53 WBC (4.0-10.0) 10^3/ uL RBC (4.1-5.3) 10^6/u L Hgb (11.7-16.6) g/dL Hct (42.0-52.0) % MCV (80-94) fL MCH (28.0-34.0) pg MCHC (30.0-36.0) g/dL RDW (12.1-15.1) % Plt Count (130-400) 10^3/c mm MPV (7.4-10.4) fL Neut % (Auto) % Lymph % (Auto) % Moore % (Auto) % Eos % (Auto) % Baso % (Auto) % Neut # (Auto) (1.8-7.7) 10^3/u L Lymph # (Auto) (0.8-4.8) 10^3/u L Moore # (Auto) (0.2-0.9) 10^3/u L Eos # (Auto) (0.0-0.8) 10^3/u L Baso # (Auto) (0.0-0.1) 10^3/u L Nucleated RBC % (a uto) % Nucleated RBCs # /100WBC PT (12.1-14.9) SECO NDS INR (0.8-1.2) Specimen Type Arterial Sample Site Radial, right ABG pH 7.40 (7.35-7.45) ABG pCO2 41.0 (35-45) mmHg ABG pO2 67.3 L (80.0-100.0) mmH g ABG HCO3 25.4 (22-26) mmol/L ABG Base Excess 0.5 (-2.0-2.0) mmol/ L Neeraj Test Pos Hematocrit 46.2 (42-52) % O2 Delivery Device Nc O2 Liters/Min 4.0 % Perinatal Technician ID Harkr Sodium (136-145) mmol/L Potassium (3.5-5.1) mmol/L Chloride (98-107) mmol/L Carbon Dioxide (22-29) mmol/L Anion Gap (5-19) BUN (8-23) mg/dL Creatinine (0.7-1.2) mg/dL GFR Calculation Glucose (65-115) mg/dL POC Glucose 133 H (70-110) mg/dL Calculated Osmolal ity (285-295) mOsm/k g Lactate 4.5 H* (0.5-2.2) mmol/L Calcium (8.5-10.5) mg/dL Total Bilirubin (0.15-1.2) mg/dL AST (0-40) U/L ALT (0-41) U/L Alkaline Phosphata se (40-130) IU/L NT-Pro-B Natriuret Pep (0-450) pg/mL Total Protein (6.6-8.7) g/dL Albumin (3.5-5.2) g/dL Globulin (1.3-4.6) g/dL TSH (0.27-4.20) uIU/ mL Urine Color (Yellow) Urine Appearance (CLEAR) Urine pH (5-7) Ur Specific Gravit y (1.005-1.030) Urine Protein (Negative) Urine Glucose (UA) (Normal) Urine Ketones (Negative) Urine Blood (Negative) Urine Nitrate (Negative) Urine Bilirubin (Negative) Urine Urobilinogen (Negative) mg/dL Ur Leukocyte Kim ase (Negative) Influenza Type A A g (Negative) Influenza Type B A g (Negative) SARS-CoV-2 Ag (Rap id) (Negative) 09/09/20 09/09/20 09/09/20 Range/Units 03:00 03:50 03:50 WBC (4.0-10.0) 10^3/ uL RBC (4.1-5.3) 10^6/u L Hgb (11.7-16.6) g/dL Hct (42.0-52.0) % MCV (80-94) fL MCH (28.0-34.0) pg MCHC (30.0-36.0) g/dL RDW (12.1-15.1) % Plt Count (130-400) 10^3/c mm MPV (7.4-10.4) fL Neut % (Auto) % Lymph % (Auto) % Moore % (Auto) % Eos % (Auto) % Baso % (Auto) % Neut # (Auto) (1.8-7.7) 10^3/u L Lymph # (Auto) (0.8-4.8) 10^3/u L Moore # (Auto) (0.2-0.9) 10^3/u L Eos # (Auto) (0.0-0.8) 10^3/u L Baso # (Auto) (0.0-0.1) 10^3/u L Nucleated RBC % (a uto) % Nucleated RBCs # /100WBC PT (12.1-14.9) SECO NDS INR (0.8-1.2) Specimen Type Sample Site ABG pH (7.35-7.45) ABG pCO2 (35-45) mmHg ABG pO2 (80.0-100.0) mmH g ABG HCO3 (22-26) mmol/L ABG Base Excess (-2.0-2.0) mmol/ L Neeraj Test Hematocrit (42-52) % O2 Delivery Device O2 Liters/Min % Perinatal Technician ID Sodium (136-145) mmol/L Potassium (3.5-5.1) mmol/L Chloride (98-107) mmol/L Carbon Dioxide (22-29) mmol/L Anion Gap (5-19) BUN (8-23) mg/dL Creatinine (0.7-1.2) mg/dL GFR Calculation Glucose (65-115) mg/dL POC Glucose (70-110) mg/dL Calculated Osmolal ity (285-295) mOsm/k g Lactate (0.5-2.2) mmol/L Calcium (8.5-10.5) mg/dL Total Bilirubin (0.15-1.2) mg/dL AST (0-40) U/L ALT (0-41) U/L Alkaline Phosphata se (40-130) IU/L NT-Pro-B Natriuret Pep (0-450) pg/mL Total Protein (6.6-8.7) g/dL Albumin (3.5-5.2) g/dL Globulin (1.3-4.6) g/dL TSH (0.27-4.20) uIU/ mL Urine Color Yellow (Yellow) Urine Appearance Clear (CLEAR) Urine pH 5 (5-7) Ur Specific Gravit y 1.010 (1.005-1.030) Urine Protein Neg (Negative) Urine Glucose (UA) Norm (Normal) Urine Ketones Negative (Negative) Urine Blood Neg (Negative) Urine Nitrate Negative (Negative) Urine Bilirubin Neg (Negative) Urine Urobilinogen Norm (Negative) mg/dL Ur Leukocyte Kim ase Negative (Negative) Influenza Type A A g Negative (Negative) Influenza Type B A g Negative (Negative) SARS-CoV-2 Ag (Rap id) Negative (Negative) Imaging Data^: CT Head: Attestation: I personally reviewed and interpreted this imaging study as follows: Radiologist's impression: [facility] [address] [place] [address] CT Scan Report Signed Patient: Rashid Bolivar Unit #: [id number] : 1935 Age/Sex: 84 / M ADM Date: 09/09/20 Loc: ER Room/Bed: Attending Dr: Ordering Provider/Ordering MD: Stacia Mcdaniel MD Date of Service: 09/09/20 Procedure(s): CT head wo con* [id number] Accession Number(s): [id number] Report Number: [id number] PROCEDURE INFORMATION: Exam: CT Head Without Contrast Exam date and time: 09/09/2020 2:20 AM Age: 84 years old Clinical indication: Altered mental status/memory loss and fever; Patient HX: AMS. Unresponsive. Fever. Hypertensive. TECHNIQUE: Imaging protocol: Computed tomography of the head without contrast. Radiation optimization: All CT scans at this facility use at least one of these dose optimization techniques: automated exposure control; mA and/or kV adjustment per patient size (includes targeted exams where dose is matched to clinical indication); or iterative reconstruction. COMPARISON: CT head wo con* [id number] 11/25/2018 10:02 AM RADIATION DOSE METRICS: Total DLP (mGy-cm): 825.84 FINDINGS: Brain: There is moderate hypodensity of the periventricular white matter. This is nonspecific, but a likely cause is small vessel ischemic disease. No abnormal intra-axial or extra-axial fluid collections are identified. There is no midline shift. No intracranial hemorrhage identified. Ventricles: The ventricles and sulci are moderately and diffusely prominent, compatible with global brain volume loss. Bones/joints: Unremarkable as visualized. Sinuses: Moderate patchy opacities in the ethmoid sinus. Small amount of opacity in the right maxillary sinus visualized right maxillary sinus posteriorly. Mastoid air cells: Visualized mastoid air cells are well aerated. Soft tissues: Unremarkable. CT/CT head wo con* [id number] IMPRESSION: 1. No acute intracranial abnormality identified. CXR: Attestation: I personally reviewed and interpreted this imaging study as follows: My impression: no acute abnormality EKG Data^: EKG 1: Attestation: I personally reviewed and interpreted this EKG as follows: EKG interpretation date: 09/09/20 EKG interpretation time: 02:47 Interpretation: sinus tach hr [address] or t wave abnormalities qrs 120 qtc 407 Discharge Plan Discharge Patient Disposition: Admitted As Inpatient Admit Provider: Drea Chin Clinical Impression: Altered mental status Qualifiers: Altered mental status type: unspecified Qualified Code(s): R41.82 - Altered mental status, unspecified Sepsis Qualifiers: Sepsis type: sepsis due to unspecified organism Sepsis acute organ dysfunction status: unspecified Qualified Code(s): A41.9 - Sepsis, unspecified organism Condition: Stable Coding Level of Care Code ED Entry Level Buyer for Chg Fwd Exam Comprehensive
[2020-09-09] MEDS: sodium chloride 0.9% 1,000 ML 999 ML IV (03:13)
[2020-09-09 03:21] LABS: Bilirubin Urine Neg (Negative); Blood Urine Neg (Negative); Glucose Urine UA Norm (Normal); Ketones Urine Negative (Negative); Leukocyte Esterase Urine Negative (Negative); Nitrate Urine Negative (Negative); Protein Urine Neg (Negative); Urine Appearance Clear (CLEAR); Urine Color Yellow (Yellow); Urobilinogen Urine Norm (Negative); pH Urine 5 (5-7)
[2020-09-09 03:24] LABS: Alanine Aminotransferase 23 U/L (0-41); Alkaline Phosphatase 41 IU/L (40-130); Anion Gap 15.6 (5-19); Aspartate Amino Transferase 29 U/L (0-40); Blood Urea Nitrogen 16 mg/dL (8-23); Calcium 8.6 mg/dL (8.5-10.5); Carbon Dioxide 27 mmol/L (22-29); Chloride 99 mmol/L (98-107); Globulin 3.3 g/dL (1.3-4.6); Osmolality Calculated 289 mOsm/kg (285-295); Potassium 3.6 mmol/L (3.5-5.1); Sodium 138 mmol/L (136-145); Thyroid Stimulating Hormone 0.27 uIU/mL (0.27-4.20); Total Bilirubin 0.5 mg/dL (0.15-1.2); Total Protein 7.3 g/dL (6.6-8.7)
[2020-09-09 03:28] LABS: Glucose 128 mg/dL (65-115); NT Pro B Type Natriuretic Pept 599 pg/mL (0-450)
[2020-09-09 03:35] LABS: INR 1.06 (0.8-1.2)
[2020-09-09 03:47] LABS: Lactate (Lactic Acid level) 4.5 mmol/L (0.5-2.2)
[2020-09-09] MEDS: piperacillin-tazobactam 3.375 GM in sodium chloride 0.9% (plus) 50 ML IV ×3 (04:19→20:56)
[2020-09-09 04:34] LABS: SARS Covid-2 Antigen Negative (Negative)
[2020-09-09 04:50] LABS: Influenza A by IFA Negative (Negative); Influenza B by IFA Negative (Negative)
[2020-09-09] MEDS: vancomycin 1,000 MG in sodium chloride 0.9% 250 ML 250 MG IV (04:55)
--- NOTE | 2020-09-09 05:40 | PM.HP ---
Providers/Chief Complaint Admitting Physician: Drea Chin Primary Care Provider: Ivory Davis APN Chief Complaint: fall History of Present Illness Rashid Bolivar is a 84 year old male with past medical history of hypertension, covid-19 infection, pituitary macroadenoma, peripheral arterial disease,chronic obstructive lung disease, who is presenting to ER after he was found lying on ground difficult to arouse. She states throught the day he was feeling slightly unwell however did not have any specific complaint. At time he does wear oxygen at home however was not wearing any at the time he was found. Upon arrival to ER he was noted to have a temp of 103.5 and a lactic acid of 4.5, flu and covid 19 ag was negative[address] head CT was negative. He was noted to be hypoxic requiring 4L of o2 via NC. No meningeal signs. Started to become more alert while in ER. at bedside provided history. Review of Systems General: Reports: ROS unobtainable due to medical condition Medications/Allergies Home Medications Medication Instructions Recorded Confirmed Last Taken Type hydrocortisone 20 mg tablet See Rx Instructions .ROUTE .COMPLEX 09/01/19 08/15/20 06/10/20 History lisinopril 5 mg tablet 5 mg PO DAILY@12 09/01/19 08/15/20 06/10/20 History aspirin 81 mg PO DAILY@12 06/11/20 08/15/20 06/10/20 History levothyroxine 112 mcg PO DAILY@07 06/11/20 08/15/20 06/10/20 History Spiriva Respimat 2.5 mcg/actuation 2 puff INHALATION DAILY #4 g NS 08/15/20 08/15/20 Unknown Rx solution for inhalation Allergies Allergy/AdvReac Type Severity Reaction Status Date / Time morphine Allergy Vomitting Verified 08/15/20 12:52 PFSH Acute PFSH: Medical History Acute respiratory failure with hypoxia Adrenal insufficiency CHERI (acute kidney injury) COVID-19 Elevated brain natriuretic peptide (BNP) level Elevated d-dimer Elevated lactic acid level Hypertension Hypothyroidism Hypoxia Peripheral arterial disease Sepsis Thyroid disease Surgical History H/O brain surgery History of gastric surgery History of prostate surgery Family History Denies family history of Diabetes CAD (coronary artery disease) Clotting disorder Dementia Hyperlipidemia Psychiatric illness Chronic kidney disease (CKD) Suicide Anesthesia complication Bleeding disorder Family history of premature coronary artery disease Lung disease Cancer Hypertension Stroke Social History Smoking and tobacco status: former smoker Quit status (tobacco): has quit using tobacco Year quit tobacco: 1999 [id number] cig/pipe Second hand smoke exposure: No Smoking risk assessment/counseling performed?: Yes Alcohol intake: never Lives independently: Yes Household members: spouse Housing: House Marital status: service: No Current occupational status: retired Pets and animals: No History of recent travel: No Current gender identity: Male Vitals/I&O/Wt Last Vital Signs Temp 102.9 F H 09/09/20 03:24 Pulse 91 09/09/20 05:00 Resp 24 H 09/09/20 05:00 BP 113/69 09/09/20 05:00 Pulse Ox 90 09/09/20 05:00 Weight last 48 hrs Weight 113.398 kg Physical Exam Narrative: EXAM NARRATIVE: General - drowsy however responsive to stemuli HEENT - Grossly unremarkable CVS : RRR Chest : Non labored respiration Abd: Soft Ext : No edema Data : 09/09/20 01:55 09/09/20 01:55 Micro: Microbiology 09/09/20 03:15 Blood Culture - Preliminary Blood SPECIMEN COLLECTED 09/09/20 03:07 Blood Culture - Preliminary Blood SPECIMEN COLLECTED A&P Assessment and plan (1) Altered mental status: Likely infectious Fall precautions Bedside swallow prior to diet Status: Acute Qualifiers: Altered mental status type: unspecified Qualified Code(s): R41.82 - Altered mental status, unspecified (2) Sepsis: Tmax 103 Source unclear LA -4.5 Possible pneumonia check procal Follow up on blood culture x 2 Follow up on Urine culture Continue vancomycin/zosyn Status: Acute Qualifiers: Sepsis acute organ dysfunction status: unspecified Sepsis type: sepsis due to unspecified organism Qualified Code(s): A41.9 - Sepsis, unspecified organism (3) COPD (chronic obstructive pulmonary disease): Wean o2 as tolerated Duoneb tx consider pulmonary consult Status: Acute Attestations Medical Necessity Statement*: Will require over 2 midnight stay in hospital for eval and treatment of sepsis, fever, mental status change. Time Spent in Patient Care: Greater than 35 minutes (>than 50% of time spent in counselling and/or direct pt care on unit). Coding Level of Care Code Acute Engineer Assistant for g Fwd Diagnoses Altered mental status R41.82 Altered mental status type: unspecified Sepsis A41.9 Sepsis acute organ dysfunction status: unspecified Sepsis type: sepsis due to unspecified organism COPD (chronic obstructive pulmonary disease) J44.9
--- NOTE | 2020-09-09 06:06 | PC.PHAR ---
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 Drug selected: Vancomycin Loading dose (mg): 0 Vd (liters): 102.1 (factor used: 0.9 L/kg) Ki (hr-1): 0.057 Half life (hrs): 12.16 Recommended dose: 1500 mg Interval: 12 hrs Infusion time (hrs): 1.5 Predicted peak (mcg/mL): 28.4 Predicted trough (mcg/mL): 15.61 Total body weight is being used for vancomycin dosing. Renal function is stable [ ] /unstable [ ] Recommendations: Give Vancomycin 1500 mg q 12 hrs with an expected Cpeak of 28.4 mcg/ml and an expected Ctrough of 15.61 mcg/ml Renal dosing of other antibiotics (review renal dosing of other medications and list guidelines here): Thank you for the consult, will continue to follow. Signature: Aleja Espinal [facility]
[2020-09-09 06:40] LABS: Procalcitonin 0.14 ng/mL (0-0.5)
[2020-09-09] MEDS: enoxaparin 40 mg/0.4 mL Syringe SUBCUT (07:00)
[2020-09-09] MEDS: sodium chloride 0.9% 1,000 ML 75 ML IV (07:48)
[2020-09-09] MEDS: famotidine 20 mg/2 mL INJ IVP ×2 (07:49→21:21)
[2020-09-09] MEDS: ipratropium-albuterol 3 mL Neb INHALATION ×2 (15:34→20:05)
--- NOTE | 2020-09-09 17:28 | P.PN_ITS ---
Subjective Subjective: Interval history: Overnight labs and H&P reviewed. T-max 102 Fahrenheit. Earlier this morning when patient transferred from ER to ICU, he was noted to be alert awake and oriented x3. At the time of my assessment this morning at around was somnolent, however woke up easily and had a conversation. He was able to air years old but could not tell me his exact age, particularly recollecting both ER. Knew he was in the hospital. Did not require number any events leading up to admission. Per his who is at the bedside today, she reports that patient has not had any URI symptoms, denies any cough sputum production or hemoptysis. States that he had just been feeling generalized unwell. Reported abdominal pain nausea vomiting or diarrhea. No rash. No history of recent shingles or cold sores. Medications: Reviewed: Yes Vitals/I&O/Wt Last Vital Signs Temp 99.0 F 09/09/20 15:27 Pulse 95 09/09/20 16:30 Resp 29 H 09/09/20 16:30 BP 156/68 09/09/20 16:10 Pulse Ox 93 09/09/20 16:30 09/09/20 09/09/20 09/09/20 06:59 14:59 22:59 Intake Total 1300 / 1300 320 / 320 Output Total 1100 / 1100 400 / 1500 Balance 1300 / 1300 -1100 / -1100 -80 / -1180 Weight last 48 hrs Weight 113.398 kg Physical Exam Narrative: EXAM NARRATIVE: GEN: Awake, alert, oriented x2 CVS: S1S2 N RS: CTA B/L anteriorly Abd: Soft, nt/nd , bs+ SUPERVISOR COIN MACHINE: no focal neuro deficits, moves all extremities in bed to command , urinary incontinence Urinary Catheter Management^: Hawkins: Cath Placed During This Visit: yes Urinary Catheter Date of Insertion: 09/09/20 Urinary Catheter Time of Insertion: 14:01 Data : 09/09/20 01:55 09/09/20 01:55 Micro: Microbiology 09/09/20 03:15 Blood Culture - Preliminary Blood SPECIMEN COLLECTED 09/09/20 03:07 Blood Culture - Preliminary Blood SPECIMEN COLLECTED A&P Assessment and plan (1) Sepsis: Meets criteria by way of fever, tachypnea, elevated lactate and encephalopathy. Source is currently under evaluation, no localizing symptoms at this present time Possible pneumonia however insiltrates persisting since Covid PNA in Apr [address] chest to characterize any new infiltrates CT abdomen given elevated lactate Blood culture pending negative thus far UA unremarkable likely metabolid encephalopathy , LP in am if no improvement in mentataion Continue vancomycin/zosyn Status: Acute Qualifiers: Sepsis acute organ dysfunction status: unspecified Sepsis type: sepsis due to unspecified organism Qualified Code(s): A41.9 - Sepsis, unspecified organism (2) Altered mental status: Likely metabolic encepahlopathy as above Status: Acute Qualifiers: Altered mental status type: unspecified Qualified Code(s): R41.82 - Altered mental status, unspecified (3) COPD (chronic obstructive pulmonary disease): Wean o2 as tolerated Duoneb tx consider pulmonary consult Status: Acute Attestations Medical Necessity Statement*: sepsis, need for iv abx , source evaluation Coding Level of Care Code Acute Golf Course Assistant for Chg Fwd Diagnoses Sepsis A41.9 Sepsis acute organ dysfunction status: unspecified Sepsis type: sepsis due to unspecified organism Altered mental status R41.82 Altered mental status type: unspecified COPD (chronic obstructive pulmonary disease) J44.9
--- NOTE | 2020-09-09 17:32 | CTR_ITS ---
PROCEDURE INFORMATION: Exam: CT Chest Without Contrast; Diagnostic Exam date and time: 09/09/2020 5:47 PM Age: 84 years old Clinical indication: Fever; Prior surgery; Surgery date: 6+ months; Surgery type: Gastric, prostate; Patient HX: Sepsis, w persistent infiltrates; Additional info: Sepsis, source under evaluation TECHNIQUE: Imaging protocol: Diagnostic computed tomography of the chest without contrast. Radiation optimization: All CT scans at this facility use at least one of these dose optimization techniques: automated exposure control; mA and/or kV adjustment per patient size (includes targeted exams where dose is matched to clinical indication); or iterative reconstruction. COMPARISON: CT angio chest PE protcl [id number] 06/11/2020 7:45 AM RADIATION DOSE METRICS: Total DLP (mGy-cm): 2712.18 FINDINGS: Lungs: Focal consolidation in the inferior lingula. Mild scattered atelectasis in both lung bases. Bandlike atelectasis or scar in the inferior right upper lobe. Pleural spaces: Unremarkable. No pneumothorax. No pleural effusion. Heart: Unremarkable. No cardiomegaly. No pericardial effusion. Aorta: Unremarkable. No aortic aneurysm. Lymph nodes: Prominent mediastinal and hilar lymph nodes are most likely reactive. Bones/joints: Unremarkable. No acute fracture. Soft tissues: Unremarkable. IMPRESSION: 1. Consolidation in the lingula is suspicious for pneumonia. PROCEDURE INFORMATION: Exam: CT Abdomen And Pelvis Without Contrast Exam date and time: 09/09/2020 5:47 PM Age: 84 years old Clinical indication: Fever; Prior surgery; Surgery date: 6+ months; Surgery type: Gastric, prostate; Patient HX: Sepsis, w persistent infiltrates; Additional info: Sepsis, source under evaluation TECHNIQUE: Imaging protocol: Computed tomography of the abdomen and pelvis without contrast. Radiation optimization: All CT scans at this facility use at least one of these dose optimization techniques: automated exposure control; mA and/or kV adjustment per patient size (includes targeted exams where dose is matched to clinical indication); or iterative reconstruction. COMPARISON: CT angio chest PE protcl [id number] 06/11/2020 7:45 AM RADIATION DOSE METRICS: Total DLP (mGy-cm): 2712.18 FINDINGS: Liver: Normal. No mass. Gallbladder and bile ducts: Normal. No calcified stones. No ductal dilation. Pancreas: Normal. No ductal dilation. Spleen: Normal. No splenomegaly. Adrenal glands: Normal. No mass. Kidneys and ureters: Fluid density cysts in both kidneys, Hounsfield units less than 20. No follow-up imaging is recommended. No calculus or hydronephrosis. Stomach and bowel: Severe diverticulosis of the distal colon without diverticulitis. Partial small bowel resection. No obstruction. Appendix: The appendix is not visualized. No secondary signs of appendicitis. Intraperitoneal space: Unremarkable. No free air. No significant fluid collection. Vasculature: Atherosclerotic calcifications. No aneurysm. Lymph nodes: Unremarkable. No enlarged lymph nodes. Urinary bladder: Hawkins catheter in a decompressed urinary bladder. Reproductive: Unremarkable as visualized. Bones/joints: Mild L1 and L3 compression fractures. Degenerative spine. Soft tissues: Small fat containing left inguinal hernia. Anterior laparotomy scar. Small fat containing umbilical hernia. CT/CT chest abd pel wo con IMPRESSION: 1. No acute abnormality identified in the abdomen or pelvis. 2. Diverticulosis of the distal colon. 3. Mild age indeterminate compression fractures of L1 and L3. COMMENTS: Consistent with the [employer]'s Incidental Findings Committee white paper (J Am Aida Radiol 2018): Any incidental renal lesion less than 1 cm or classified as too small to characterize, or any incidental cystic renal lesion characterized as simple-appearing, is likely benign. No follow-up imaging is recommended for these lesions per consensus recommendations based on imaging criteria. Radiation Dose CTDIVOL = (mGy): DLP = 2712.18~2712.18 (mGy-cm)
[2020-09-09] MEDS: vancomycin 1,500 MG/300 ML PIGGYBACK 200 MG IV (17:49)
--- NOTE | 2020-09-09 21:56 | PC.NURSE ---
ASSUMING CARE 1900 Patient resting in bed on high flow nasal cannula at 2 L and is sleeping. Patient is arousable and tells nurse he is in the hospital, his name, birthday, and the year but does not know what brought him here. Patient is taking EKG leads off and is educated on importance of monitoring and keeping leads on. Hawkins catheter in place and draining and vancomycin running at this time.
[2020-09-10] VITALS (48 sets, daily range): BP systolic 92–179; BP diastolic 50–114; PULSE 64–92; RESP 15–27; TEMP 36.7–37.4; O2SAT 84–99
[2020-09-10] MEDS: ipratropium-albuterol 3 mL Neb INHALATION ×4 (02:29→21:08)
[2020-09-10] MEDS: piperacillin-tazobactam 3.375 GM in sodium chloride 0.9% (plus) 50 ML IV ×3 (04:04→20:19)
[2020-09-10 05:55] LABS: Basophils % 0.4 %; Hematocrit 44.1 % (42.0-52.0); Hemoglobin 14.1 g/dL (11.7-16.6); Lymphocytes # 0.6 10^3/uL (0.8-4.8); Lymphocytes % 12.8 %; Mean Corpuscular Hemoglobin 30.5 pg (28.0-34.0); Mean Corpuscular Volume 95.5 fL (80-94); Mean Platelet Volume 10.2 fL (7.4-10.4); Monocytes # 0.5 10^3/uL (0.2-0.9); Monocytes % 9.9 %; Neutrophils # 3.69 10^3/uL (1.8-7.7); Neutrophils % 76.5 %; Nucleated Red Blood Cells % 0 %; Platelet Count 111 10^3/cmm (130-400); Red Blood Count 4.62 10^6/uL (4.1-5.3); Red Cell Distribution Width 13.5 % (12.1-15.1); White Blood Count 4.8 10^3/uL (4.0-10.0)
[2020-09-10 06:12] LABS: Alanine Aminotransferase 23 U/L (0-41); Albumin Level 3.4 g/dL (3.5-5.2); Alkaline Phosphatase 33 IU/L (40-130); Anion Gap 14.6 (5-19); Aspartate Amino Transferase 35 U/L (0-40); Blood Urea Nitrogen 12 mg/dL (8-23); Calcium 7.7 mg/dL (8.5-10.5); Carbon Dioxide 26 mmol/L (22-29); Chloride 100 mmol/L (98-107); Glucose 120 mg/dL (65-115); Magnesium 1.8 mg/dL (1.7-2.3); Osmolality Calculated 285 mOsm/kg (285-295); Potassium 3.6 mmol/L (3.5-5.1); Sodium 137 mmol/L (136-145); Total Bilirubin 0.8 mg/dL (0.15-1.2); Total Protein 6.4 g/dL (6.6-8.7)
[2020-09-10] MEDS: enoxaparin 40 mg/0.4 mL Syringe SUBCUT (06:14)
[2020-09-10] MEDS: vancomycin 1,500 MG/300 ML PIGGYBACK 200 MG IV ×2 (06:15→17:35)
[2020-09-10] MEDS: sodium chloride 0.9% 1,000 ML 75 ML IV (06:15)
[2020-09-10 06:35] LABS: Lactate (Lactic Acid level) 1.9 mmol/L (0.5-2.2)
[2020-09-10] MEDS: famotidine 20 mg/2 mL INJ IVP ×2 (08:44→20:24)
--- NOTE | 2020-09-10 11:41 | PC.CHAP ---
Pastoral Care Encounter/Spiritual Assessment Type of Contact [] Declined head of advertising visit [] Patient/Family/Request visit [] Outpatient visit [] Follow-up visit [] Physician referral [] Code/Alert [XX] Routine visit [] Staff referral [] Actively dying [] Patient sleeping [] Family support [] [] Out of room [] Palliative care [] [] Receiving care in room [] Pre-surgical visit [] Trauma [] Long length of stay [XX] ICU visit [] Other: Relational/Emotional Strength [XX] Patient feels connected with others/family/visitors/staff [] Distress [] Loneliness/isolation [] Abandonment Spirituality of Patient [XX] Person of Lisset [XX] Attends Gnosticist of their Lisset [XX] Believes in Prayer [XX] Reads Bible or Adventist materials [] There are Spiritual issues to be addressed Textile Conservator Interventions [XX] Prayer [XX] Active listening [XX] Non-anxious presence [] Spiritual/emotional support [] Crisis/trauma care [] Spiritual counseling [] Bereavement support [] Provided bereavement packet [XX] Provided Bible/devotional materials [] Provided toy/stuffed animal, coloring book to patient or family member [] Provided Communion [] Anointing/[place] [] Salvation [XX] Completed spiritual assessment [] Other: Impact on Illness or Injury [] Angry [] Fearful [] Anxious [] Often cries [] Exhaustion [] Unable to work [] Unable to attend congregation [] Unable to walk/stand [] Unable to read [] Unable to drive [] Unable to eat/drink [] Unable to sleep [] Unable to be with family [] Patient intubated [] Other: Summary: Pt has a strong lisset and strong support system. He seemed to very much enjoy the visit and invited head of advertising to return to meet his . Offered prayer and Daily Bread. Time spent with patient: 25 mins
--- NOTE | 2020-09-10 11:54 | XRR_ITS ---
PROCEDURE INFORMATION: Exam: XR Chest Exam date and time: 09/10/2020 12:22 PM Age: 84 years old Clinical indication: Device placement; Picc; Additional info: Line TECHNIQUE: Imaging protocol: XR of the chest Views: 1 view. COMPARISON: CT chest abd pel wo con 09/09/2020 6:27 PM FINDINGS: Tubes, catheters and devices: A right arm PICC is present in satisfactory position with the tip projecting in the SVC. Lungs: There is subsegmental atelectasis in the lung bases. Pleural spaces: Unremarkable. No pleural effusion. No pneumothorax. Heart/Mediastinum: The heart may be normal considering the AP rotated projection. The aorta is calcified. Bones/joints: Unremarkable. XR/XR chest 1V portable [id number] IMPRESSION: Satisfactory PICC position in the SVC.
--- NOTE | 2020-09-10 17:27 | P.PN_ITS ---
Subjective Subjective: Interval history: menatal status much improved, now back at baseline, patient alert, awake and oriented. Ct CAP with consolidation in lingula Medications: Reviewed: Yes Vitals/I&O/Wt Last Vital Signs Temp 99.3 F 09/10/20 12:00 Pulse 77 09/10/20 17:00 Resp 20 H 09/10/20 17:00 BP 174/114 09/10/20 17:00 Pulse Ox 95 09/10/20 17:00 09/10/20 09/10/20 09/10/20 06:59 14:59 22:59 Intake Total 50 / 1720 650 / 650 Output Total 750 / 2700 Balance -700 / -980 650 / 650 Weight last 48 hrs Weight 113.398 kg Physical Exam Narrative: EXAM NARRATIVE: GEN: Awake, alert and oriented, no acute distress CVS: S1S2 N RS: CTA B/L Abd: Soft, nt/nd , bs+ HOUSING COORDINATOR: no focal neuro deficits Urinary Catheter Management^: Hawkins: Cath Placed During This Visit: yes Reason for Continuing Indwelling Catheter: Accurate Measurement of Urinary Output in Critically Ill Patients Urinary Catheter Date of Insertion: 09/09/20 Urinary Catheter Time of Insertion: 14:01 Data : 09/10/20 05:22 09/10/20 05:22 Micro: Microbiology 09/09/20 03:15 Blood Culture - Preliminary Blood NEGATIVE TO DATE 09/09/20 03:07 Blood Culture - Preliminary Blood NEGATIVE TO DATE A&P Assessment and plan (1) Sepsis: Meets criteria by way of fever, tachypnea, elevated lactate and encephalopathy. Source not entriely clear, except for lingular consolidation CT abdomen normal Blood culture pending negative thus far UA unremarkable less likely meningitis given recovery of baseline mentation likely metabolic encephalopathy, now resolved Continue vancomycin/zosyn , add azithro for atypical coverage d/c vanc if MRSA PCR negative D/c IVF CT head normal, TSH WNL Resume home medications incl levothyroxine, hydrocortisone Status: Acute Qualifiers: Sepsis acute organ dysfunction status: unspecified Sepsis type: sepsis due to unspecified organism Qualified Code(s): A41.9 - Sepsis, unspecified organism (2) Altered mental status: Likely metabolic encepahlopathy as above Status: Acute Qualifiers: Altered mental status type: unspecified Qualified Code(s): R41.82 - Altered mental status, unspecified (3) COPD (chronic obstructive pulmonary disease): Wean o2 as tolerated Duoneb tx Status: Acute Attestations Medical Necessity Statement*: transfer out of ICU, continue iv abx, needs to be afberile at least 24-48 hrs prior to discharge Coding Level of Care Code Acute Foundry Melt Supervisor for g Fwd Diagnoses Sepsis A41.9 Sepsis acute organ dysfunction status: unspecified Sepsis type: sepsis due to unspecified organism Altered mental status R41.82 Altered mental status type: unspecified COPD (chronic obstructive pulmonary disease) J44.9
--- NOTE | 2020-09-10 17:32 | PC.NURSE ---
Patient report called to Lety MARTINEZ. Going to room 276-2.
--- NOTE | 2020-09-10 18:00 | PC.NURSE ---
Transported patient to room 276-2 via wheelchair with zero difficulties. ambulated to bed with stand by assist. bed in low position, rails up x 2, call light in reach, table with in reach, bed alarm set.
[2020-09-10] MEDS: amlodipine 10 mg Tablet PO (18:54)
[2020-09-10] MEDS: azithromycin 250 mg Tablet 500 MG PO (18:54)
[2020-09-11] VITALS (15 sets, daily range): BP systolic 121–155; BP diastolic 68–80; PULSE 67–86; RESP 16–24; TEMP 36.4–37.1; O2SAT 90–95
[2020-09-11] MEDS: piperacillin-tazobactam 3.375 GM in sodium chloride 0.9% (plus) 50 ML IV ×2 (03:23→12:36)
[2020-09-11] MEDS: ipratropium-albuterol 3 mL Neb INHALATION ×4 (03:25→20:47)
[2020-09-11 06:00] LABS: Hematocrit 42.4 % (42.0-52.0); Hemoglobin 13.9 g/dL (11.7-16.6); Lymphocytes # 0.9 10^3/uL (0.8-4.8); Lymphocytes % 27.3 %; Mean Corpuscular HGB Conc 32.8 g/dL (30.0-36.0); Mean Corpuscular Hemoglobin 30.6 pg (28.0-34.0); Mean Corpuscular Volume 93.4 fL (80-94); Mean Platelet Volume 10.4 fL (7.4-10.4); Monocytes # 0.5 10^3/uL (0.2-0.9); Monocytes % 14.8 %; Neutrophils # 1.76 10^3/uL (1.8-7.7); Neutrophils % 56.6 %; Nucleated Red Blood Cells % 0 %; Platelet Count 109 10^3/cmm (130-400); Red Blood Count 4.54 10^6/uL (4.1-5.3); Red Cell Distribution Width 13.2 % (12.1-15.1); White Blood Count 3.1 10^3/uL (4.0-10.0)
[2020-09-11 06:18] LABS: Alanine Aminotransferase 23 U/L (0-41); Albumin Level 3.4 g/dL (3.5-5.2); Alkaline Phosphatase 37 IU/L (40-130); Anion Gap 14.6 (5-19); Aspartate Amino Transferase 34 U/L (0-40); Blood Urea Nitrogen 12 mg/dL (8-23); Calcium 7.8 mg/dL (8.5-10.5); Carbon Dioxide 24 mmol/L (22-29); Chloride 103 mmol/L (98-107); Globulin 3.2 g/dL (1.3-4.6); Glucose 101 mg/dL (65-115); Osmolality Calculated 286 mOsm/kg (285-295); Potassium 3.6 mmol/L (3.5-5.1); Sodium 138 mmol/L (136-145); Total Bilirubin 0.6 mg/dL (0.15-1.2); Total Protein 6.6 g/dL (6.6-8.7)
[2020-09-11 06:22] LABS: Vancomycin Trough 17.5 ug/mL (10-15)
[2020-09-11] MEDS: vancomycin 1,500 MG/300 ML PIGGYBACK 200 MG IV ×2 (06:34→17:19)
[2020-09-11] MEDS: levothyroxine 112 mcg Tablet PO (06:35)
[2020-09-11] MEDS: enoxaparin 40 mg/0.4 mL Syringe SUBCUT (06:35)
--- NOTE | 2020-09-11 07:28 | PC.NURSE ---
Patient was confused this morning. He thought he was in [place]. He got out of bed several times and broke the IV off his PICC. PICC was checked and is ok. He had a bowel movement in the floor while trying to get to the BSC. Patient is up to chair and drinking coffee this morning.
[2020-09-11] MEDS: hydrocortisone 10 mg Tablet 20 MG PO (08:18)
[2020-09-11] MEDS: azithromycin 250 mg Tablet 500 MG PO (08:18)
[2020-09-11] MEDS: amlodipine 10 mg Tablet PO (08:18)
[2020-09-11] MEDS: famotidine 20 mg/2 mL INJ IVP (09:10)
[2020-09-11] MEDS: hydrocortisone 10 mg Tablet PO (12:43)
[2020-09-11] MEDS: aspirin 81 mg Chew Tablet PO (12:43)
[2020-09-11] MEDS: lisinopril 5 mg Tablet PO (12:44)
--- NOTE | 2020-09-11 14:04 | PC.CHAP ---
Pastoral Care Encounter/Spiritual Assessment Type of Contact [] Declined strand buncher fine wire visit [] Patient/Family/Request visit [] Outpatient visit [X] Follow-up visit [] Physician referral [] Code/Alert [] Routine visit [] Staff referral [] Actively dying [] Patient sleeping [] Family support [] [] Out of room [] Palliative care [] [] Receiving care in room [] Pre-surgical visit [] Trauma [] Long length of stay [] ICU visit [] Other: Relational/Emotional Strength [X] Patient feels connected with others/family/visitors/staff [] Distress [] Loneliness/isolation [] Abandonment Spirituality of Patient [X] Person of Lisset [X] Attends Mandaen of their Lisset [X] Believes in Prayer [X] Reads Bible or Mu-Ism materials [] There are Spiritual issues to be addressed Manager Statistics Interventions [] Prayer [X] Active listening [X] Non-anxious presence [] Spiritual/emotional support [] Crisis/trauma care [] Spiritual counseling [] Bereavement support [] Provided bereavement packet [] Provided Bible/devotional materials [] Provided toy/stuffed animal, coloring book to patient or family member [] Provided Communion [] Anointing/[place] [] Salvation [] Completed spiritual assessment [X] Other: Primary reason for visit was to meet Pt's spouse. Impact on Illness or Injury [] Angry [] Fearful [] Anxious [] Often cries [] Exhaustion [] Unable to work [] Unable to attend nondenominational [] Unable to walk/stand [] Unable to read [] Unable to drive [] Unable to eat/drink [] Unable to sleep [] Unable to be with family [] Patient intubated [] Other: Summary: Pt was moved from ICU to [facility]. Pt in good spirits; spouse present. Pt hopeful that he will be discharged tomorrow. Brief visit; pt and doing well and grateful. Time spent with patient: 10 mins
--- NOTE | 2020-09-11 17:41 | P.PN_ITS ---
Subjective Subjective: Interval history: Remains afebrile, hemodynamically stable, saturating 92 to 93% on room air. Reports poor appetite, had a bowel movement yesterday, no nausea or vomiting. Medications: Reviewed: Yes Vitals/I&O/Wt Last Vital Signs Temp 97.6 F 09/11/20 15:42 Pulse 78 09/11/20 15:42 Resp 18 09/11/20 15:42 BP 132/74 09/11/20 15:42 Pulse Ox 90 09/11/20 15:42 09/11/20 09/11/20 09/11/20 06:59 14:59 22:59 Intake Total 50 / 1470 710 / 710 50 / 760 Output Total 1400 / 1401 225 / 225 200 / 425 Balance -1350 / 69 485 / 485 -150 / 335 Physical Exam Narrative: EXAM NARRATIVE: GEN: Awake, alert and oriented, no acute distress HEENT: Oral thrush noted CVS: S1S2 N RS: Bilateral wheezing to auscultation noted Abd: Soft, nt/nd , bs+ MOLDER WAX BALL: no focal neuro deficits Urinary Catheter Management^: Hawkins: Cath Placed During This Visit: yes, but has since been removed by the nurse Reason for Continuing Indwelling Catheter: Decision to DC Catheter Urinary Catheter Date of Insertion: 09/09/20 Urinary Catheter Time of Insertion: 14:01 Date Urinary Catheter Removed: 09/11/20 Time Urinary Catheter Discontinued: 13:24 Data : 09/11/20 05:40 09/11/20 05:40 Micro: Microbiology 09/10/20 18:52 MRSA Culture - Final Nose A&P Assessment and plan (1) Sepsis: Present on admission, meets criteria by way of fever, tachypnea, elevated lactate and encephalopathy. Source not entriely clear, except for lingular consolidation, however this has been noted on prior CTs as well, appears out of proportion to current degree of symptoms. Acute bacterial versus viral bronchitis remains a consideration Improved with an empiric course of Zosyn and vancomycin and azithromycin, antibiotic day 3 today. Change to oral antibiotics levofloxacin 750 mg p.o. daily and monitor closely for any clinical changes. CT abdomen normal Blood culture negative to date UA unremarkable less likely meningitis given quick recovery of baseline mentation likely metabolic encephalopathy, now resolved CT head normal, TSH WNL Continue home medications including levothyroxine, hydrocortisone which are on board for history of pituitary macroadenoma resection Status: Acute Qualifiers: Sepsis acute organ dysfunction status: unspecified Sepsis type: sepsis due to unspecified organism Qualified Code(s): A41.9 - Sepsis, unspecified organism (2) Altered mental status: Likely metabolic encepahlopathy as above, resolved Status: Acute Qualifiers: Altered mental status type: unspecified Qualified Code(s): R41.82 - Altered mental status, unspecified (3) COPD (chronic obstructive pulmonary disease): At home uses 2 L/min as needed, today reports that he was dyspneic on ambulating from bed to chair, noted to have wheezing bilaterally on auscultation. Added budesonide inhalation in addition to scheduled DuoNeb. Has recently been started on Spiriva, may need addition of LABA at discharge. We will repeat a home O2 eval to see if patient may need continuous versus exertional O2 as against prn at nighttime. Status: Acute (4) Oral thrush: start fluconazole 100mg po daily x 10 days Status: Acute Attestations Medical Necessity Statement*: Discontinue IV antibiotics, switch to oral levofloxacin, monitor closely for any clinical deterioration, likely discharge in the upcoming 24 hours if remains afebrile hemodynamically stable Coding Level of Care Code Acute Appraiser Personal Property for g Fwd Diagnoses Sepsis A41.9 Sepsis acute organ dysfunction status: unspecified Sepsis type: sepsis due to unspecified organism Altered mental status R41.82 Altered mental status type: unspecified COPD (chronic obstructive pulmonary disease) J44.9 Oral thrush B37.0
[2020-09-11] MEDS: budesonide 0.5 mg/2 mL Neb INHALATION (20:47)
[2020-09-12] VITALS (18 sets, daily range): BP systolic 120–147; BP diastolic 59–76; PULSE 67–76; RESP 16–18; TEMP 36.4–37.1; O2SAT 88–95
[2020-09-12] MEDS: ipratropium-albuterol 3 mL Neb INHALATION ×4 (02:02→20:07)
[2020-09-12] MEDS: levothyroxine 112 mcg Tablet PO (06:11)
[2020-09-12] MEDS: levoFLOXacin 750 mg Tablet PO (06:11)
[2020-09-12] MEDS: enoxaparin 40 mg/0.4 mL Syringe SUBCUT (06:12)
[2020-09-12] MEDS: acetaminophen 325 mg Tablet 650 MG PO (06:12)
[2020-09-12] MEDS: budesonide 0.5 mg/2 mL Neb INHALATION ×2 (08:32→20:07)
[2020-09-12] MEDS: hydrocortisone 10 mg Tablet 20 MG PO (08:56)
[2020-09-12] MEDS: amlodipine 10 mg Tablet PO (08:56)
[2020-09-12] MEDS: fluconazole 100 mg Tablet PO (08:56)
--- NOTE | 2020-09-12 09:39 | P.PN_ITS ---
Subjective Subjective: Interval history: Remains afebrile, hemodynamically stable, saturating 92 to 93% on room air. Medications: Reviewed: Yes Vitals/I&O/Wt Last Vital Signs Temp 97.5 F L 09/12/20 07:18 Pulse 75 09/12/20 08:44 Resp 18 09/12/20 08:44 BP 123/63 09/12/20 07:18 Pulse Ox 88 L 09/12/20 08:45 09/11/20 09/12/20 09/12/20 22:59 06:59 14:59 Intake Total 550 / 2260 200 / 2460 200 / 200 Output Total 740 / 965 325 / 1290 Balance -190 / 1295 -125 / 1170 200 / 200 Physical Exam Const: COMMON NORMALS: patient oriented x3 HENMT: COMMON NORMALS: normocephalic, atraumatic and hearing grossly normal bilaterally HEAD & SCALP: normocephalic and atraumatic Chest: CHEST: Yes Symmetrical chest wall rise Resp: COMMON NORMALS: clear to auscultation bilaterally EFFORT & INSPECTION: Yes symmetric chest movement AUSCULTATION: clear to auscultation bilaterally Cardio: COMMON NORMALS: regular rate, regular rhythm, S1 normal heart sound present, S2 normal heart sound present, No gallops present (Cardio), No murmurs present (Cardio), No rub (Cardio) and Peripheral pulses 2+ throughout RATE: regular rate RHYTHM: regular rhythm HEART SOUNDS: S1 normal heart sound present and S2 normal heart sound present PERIPHERAL PULSES: Peripheral pulses 2+ throughout GI: COMMON NORMALS: Normal to inspection, nondistended, normoactive bowel sounds present, Soft to palpation, non-tender, No hepatosplenomegaly present and no masses AUSCULTATION: Yes normoactive bowel sounds PALPATION: Yes Soft to palpation and Yes No hepatosplenomegaly present RECTAL EXAM: Yes deferred Extremity: COMMON NORMALS: no clubbing, cyanosis or edema and no pedal edema Neuro: COMMON NORMALS: patient oriented x3 Urinary Catheter Management^: Hawkins: Cath Placed During This Visit: yes, but has since been removed by the nurse Reason for Continuing Indwelling Catheter: Decision to DC Catheter Urinary Catheter Date of Insertion: 09/09/20 Urinary Catheter Time of Insertion: 14:01 Date Urinary Catheter Removed: 09/11/20 Time Urinary Catheter Discontinued: 13:24 Data : 09/11/20 05:40 09/11/20 05:40 Micro: Microbiology 09/11/20 19:18 Gram Stain - Final Sputum - Expectorated Sputum 09/10/20 18:52 MRSA Culture - Final Nose A&P Assessment and plan (1) Sepsis: Present on admission, meets criteria by way of fever, tachypnea, elevated lactate and encephalopathy. Source not entriely clear, except for lingular consolidation, however this has been noted on prior CTs as well, appears out of proportion to current degree of symptoms. Acute bacterial versus viral bronchitis remains a consideration Improved with an empiric course of Zosyn and vancomycin and azithromycin, an tibiotic day 3 today. Change to oral antibiotics levofloxacin 750 mg p.o. daily and monitor closely for any clinical changes. CT abdomen normal Blood culture negative to date UA unremarkable less likely meningitis given quick recovery of baseline mentation likely metabolic encephalopathy, now resolved CT head normal, TSH WNL Continue home medications including levothyroxine, hydrocortisone which are on board for history of pituitary macroadenoma resection Status: Acute Qualifiers: Sepsis acute organ dysfunction status: unspecified Sepsis type: sepsis due to unspecified organism Qualified Code(s): A41.9 - Sepsis, unspecified organism (2) Recurrent syncope: 2D echo:Normal left ventricular size and systolic function with no regional wall motion abnormalities. Left ventricular ejection fraction is estimated at 60 %. Some features of grade 1 diastolic dysfunction. Normal right ventricular size and systolic function. Pumonary artery pressure estimated at 34 mm Hg. Bilateral carotid Doppler:Orthostatic vital check: Event monitor : 2 weeks: CV venous duplex LE BI : CV venous duplex LE BI Orthostatic vital check: Status: Acute (3) Altered mental status: Likely metabolic encepahlopathy as above, resolved Status: Acute Qualifiers: Altered mental status type: unspecified Qualified Code(s): R41.82 - Altered mental status, unspecified (4) COPD (chronic obstructive pulmonary disease): At home uses 2 L/min as needed, today reports that he was dyspneic on ambulating from bed to chair, noted to have wheezing bilaterally on auscultation. Added budesonide inhalation in addition to scheduled DuoNeb. Has recently been started on Spiriva, may need addition of LABA at discharge. We will repeat a home O2 eval to see if patient may need continuous versus exertional O2 as against prn at nighttime. Status: Acute (5) Oral thrush: start fluconazole 100mg po daily x 10 days Status: Acute Attestations Medical Necessity Statement*: Patient needs to be in hospital for management of sepsis, and recurrent syncope. Coding Level of Care Code Acute Automatic Operator for g Fwd Diagnoses Sepsis A41.9 Sepsis acute organ dysfunction status: unspecified Sepsis type: sepsis due to unspecified organism Recurrent syncope R55 Altered mental status R41.82 Altered mental status type: unspecified COPD (chronic obstructive pulmonary disease) J44.9 Oral thrush B37.0
--- NOTE | 2020-09-12 10:05 | PC.SOCIAL ---
Pg 2 IMM Explained to pt Pg 2 IMM. No questions voiced. Provided pt a copy. Signed, dated, & timed a copy & placed in chart.
[2020-09-12] MEDS: hydrocortisone 10 mg Tablet PO (11:27)
[2020-09-12] MEDS: lisinopril 5 mg Tablet PO (11:27)
[2020-09-12] MEDS: aspirin 81 mg Chew Tablet PO (11:27)
--- NOTE | 2020-09-12 11:45 | USCV_ITS ---
Rashid Bolivar Age: 84 Gender: M : 1935 Exam Date: 09/12/2020 16:52 Ordering Phys: Sina Sweet MD Technologist: Tg Escamilla [place] [facility] [place]: EVAL FOR DVT HISTORY: DVT. PROCEDURES: Venous duplex imaging was performed in bilateral lower extremities. The following venous structures were evaluated: common femoral vein, profunda vein, proximal portion of the greater saphenous vein, superficial femoral vein, and the popliteal vein. In addition, the posterior tibial and peroneal trunk were evaluated. Serial compression, augmentation maneuvers, and spectral Doppler flow evaluation were performed. FINDINGS: No evidence of DVT seen in any vessel visualized at this time. Examination was technically limited due to body habitus. The veins were found to be easily compressible with spontaneous blood flow. Non pulsatile flow pattern. CONCLUSIONS No evidence of DVT in the above-mentioned identifiable veins. Technically difficult study because of patient's body habitus Dr Javi Brown MD [facility] (Electronically Signed) Final Date: 12 September 2020 18:21 S
--- NOTE | 2020-09-12 11:50 | USCV_ITS ---
Katt Rashid Age: 84 Gender: M : 1935 Exam Date: 09/12/2020 17:05 Ordering Phys: Sina Sweet MD Technologist: Tg Escamilla Exam Location: [facility] – [place] Indication: SYNCOPE Risk Factors: Previous Vascular Surgery: Right Brachial BP: / Left Brachial BP: / Right Left Velocity (cm/s) Spectral Plaque Velocity (cm/s) Spectral Plaque Syst/Diast Broadening Syst/Diast Broadening 104.70/14.30 Prox CCA 96.70 / 14.90 66.70/ 6.80 Mid CCA 73.20 / 12.40 67.50/ 8.60 Distal CCA 58.90 / 12.90 65.00/ 6.10 Prox ICA 71.50 / 13.20 54.00/ 9.80 Mid ICA 72.20 / 9.70 71.70/ 19.80 Distal ICA 57.60 / 15.30 110.40 ECA 82.20 0.68 ICA/CCA 0.75 Antegrade Vertebral Antegrade 30.20/ 7.20 cm/s 67.50/ 12.80 cm/s Tri Subclavian Tri 142.0 114.2 0 0 FINDINGS Minimal plaques at the bifurcations bilaterally. Intimal thickening in the common carotid arteries bilaterally. Antegrade flow in the vertebral arteries bilaterally. Normal Doppler flow velocities in the subclavian arteries bilaterally CONCLUSIONS Minimal plaques at the bifurcations bilaterally. Intimal thickening in the common carotid arteries bilaterally. Normal Doppler flow velocities No significant stenosis, based on the above findings Dr Javi Brown MD [facility] (Electronically Signed) Final Date: 12 September 2020 18:14 S
[2020-09-13] VITALS (9 sets, daily range): BP systolic 106–131; BP diastolic 68–75; PULSE 66–79; RESP 17–18; TEMP 36.3–36.8; O2SAT 92–94
[2020-09-13] MEDS: ipratropium-albuterol 3 mL Neb INHALATION ×2 (02:30→08:19)
[2020-09-13] MEDS: enoxaparin 40 mg/0.4 mL Syringe SUBCUT (06:12)
[2020-09-13] MEDS: levoFLOXacin 750 mg Tablet PO (06:12)
[2020-09-13] MEDS: levothyroxine 112 mcg Tablet PO (06:12)
[2020-09-13 06:25] LABS: Basophils % 0.2 %; Hematocrit 41.6 % (42.0-52.0); Hemoglobin 13.8 g/dL (11.7-16.6); Lymphocytes # 1.8 10^3/uL (0.8-4.8); Lymphocytes % 40.4 %; Mean Corpuscular HGB Conc 33.2 g/dL (30.0-36.0); Mean Corpuscular Hemoglobin 30.8 pg (28.0-34.0); Mean Corpuscular Volume 92.9 fL (80-94); Monocytes # 0.5 10^3/uL (0.2-0.9); Monocytes % 11.6 %; Neutrophils # 2.08 10^3/uL (1.8-7.7); Neutrophils % 47.6 %; Nucleated Red Blood Cells % 0 %; Platelet Count 156 10^3/cmm (130-400); Red Blood Count 4.48 10^6/uL (4.1-5.3); Red Cell Distribution Width 13.1 % (12.1-15.1); White Blood Count 4.4 10^3/uL (4.0-10.0)
[2020-09-13 06:48] LABS: Anion Gap 11.3 (5-19); Blood Urea Nitrogen 13 mg/dL (8-23); Calcium 8.1 mg/dL (8.5-10.5); Carbon Dioxide 27 mmol/L (22-29); Chloride 104 mmol/L (98-107); Glucose 93 mg/dL (65-115); Osmolality Calculated 288 mOsm/kg (285-295); Potassium 3.3 mmol/L (3.5-5.1); Sodium 139 mmol/L (136-145)
[2020-09-13] MEDS: budesonide 0.5 mg/2 mL Neb INHALATION (08:19)
[2020-09-13] MEDS: hydrocortisone 10 mg Tablet 20 MG PO (09:24)
[2020-09-13] MEDS: amlodipine 10 mg Tablet PO (09:25)
[2020-09-13] MEDS: fluconazole 100 mg Tablet PO (09:25)
--- NOTE | 2020-09-13 11:22 | PM.DCS ---
Discharge Providers Date of Admission: 09/09/20 04:43 Date of Discharge: September 13, 2020 Attending Provider at Admission: Drea Chin Attending Provider at Discharge: Sina Sweet MD Primary Care Provider: Ivory Davis APN Diagnoses at Discharge Discharge Diagnosis (1) Sepsis: Status: Resolved Qualifiers: Sepsis acute organ dysfunction status: unspecified Sepsis type: sepsis due to unspecified organism Qualified Code(s): A41.9 - Sepsis, unspecified organism (2) Recurrent syncope: Status: Acute (3) Altered mental status: Status: Resolved Qualifiers: Altered mental status type: unspecified Qualified Code(s): R41.82 - Altered mental status, unspecified (4) COPD (chronic obstructive pulmonary disease): Status: Chronic (5) Oral thrush: Status: Acute Reason for Visit Reason for Visit: fall Hospital Course Hospital Course 84 year old male with past medical history of hypertension, covid-19 infection, pituitary macroadenoma, peripheral arterial disease,chronic obstructive lung disease, who is presenting to ER after he was found lying on ground difficult to arouse. She states throught the day he was feeling slightly unwell however did not have any specific complaint. At time he does wear oxygen at home however was not wearing any at the time he was found. Upon arrival to ER he was noted to have a temp of 103.5 and a lactic acid of 4.5, flu and covid [address] ag was negative. head CT was negative. He was noted to be hypoxic requiring 4L of o2 via NC. No meningeal signs. He was admitted for the management of sepsis secondary to pneumonia as well as possible other source. He was kept on broad-spectrum antibiotic initially was kept on Vanco and Zosyn as well azithromycin for 3 days Later it was downgraded to levofloxacin 750 mg p.o. daily, he was discharged on levofloxacin. Sepsis work-up included: CT chest abdomen and pelvis:Focal consolidation in the inferior lingula suspicious for pneumonia. CT abdomen and pelvis: Was normal. Blood culture negative to date, UA unremarkable, CT head normal, TSH WNL. For history of recurrent syncope: He underwent CT head without contrast: Which was normal, carotid Doppler was normal, recent 2D echo:Normal left ventricular size and systolic function with no regional wall motion abnormalities. Left ventricular ejection fraction is estimated at 60 %. Some features of grade 1 diastolic dysfunction. Normal right ventricular size and systolic function. Pumonary artery pressure estimated at 34 mm Hg. Bilateral lower extremity duplex vein; no DVT. He has also been scheduled for 2 weeks of event monitor. Recent sleep study: Has shown severe obstructive sleep apnea: He will need outpatient CPAP titration study. We will follow with Dr. Dr. Suresh as outpatient. Patient was also found to have oral thrush during this hospital stay: Started on fluconazole: And will complete 10 days course of fluconazole. Patient responded well to the above medical management and is being discharged in stable condition. We will follow up with his primary care physician as well as manager bridge as an outpatient. Physical Exam Const: COMMON NORMALS: patient oriented x3 HENMT: COMMON NORMALS: normocephalic, atraumatic and hearing grossly normal bilaterally HEAD & SCALP: normocephalic and atraumatic Chest: CHEST: Yes Symmetrical chest wall rise Resp: COMMON NORMALS: clear to auscultation bilaterally EFFORT & INSPECTION: Yes symmetric chest movement AUSCULTATION: clear to auscultation bilaterally Cardio: COMMON NORMALS: regular rate, regular rhythm, S1 normal heart sound present, S2 normal heart sound present, No gallops present (Cardio), No murmurs present (Cardio), No rub (Cardio) and Peripheral pulses 2+ throughout RATE: regular rate RHYTHM: regular rhythm HEART SOUNDS: S1 normal heart sound present and S2 normal heart sound present PERIPHERAL PULSES: Peripheral pulses 2+ throughout GI: COMMON NORMALS: Normal to inspection, nondistended, normoactive bowel sounds present, Soft to palpation, non-tender, No hepatosplenomegaly present and no masses AUSCULTATION: Yes normoactive bowel sounds PALPATION: Yes Soft to palpation and Yes No hepatosplenomegaly present RECTAL EXAM: Yes deferred Extremity: COMMON NORMALS: no clubbing, cyanosis or edema and no pedal edema Neuro: COMMON NORMALS: patient oriented x3 Urinary Catheter Management^: Hawkins: Cath Placed During This Visit: yes, but has since been removed by the nurse Reason for Continuing Indwelling Catheter: Decision to DC Catheter Urinary Catheter Date of Insertion: 09/09/20 Urinary Catheter Time of Insertion: 14:01 Date Urinary Catheter Removed: 09/11/20 Time Urinary Catheter Discontinued: 13:24 Discharge Data Data Completed and Pending: Completed Studies During Hospitalization Category Date Time Status CT chest abd pel wo con Routine Cat Scan 09/09/20 17:[address] head wo con* 7 0450 Urgent Cat Scan 09/09/20 02:32 Completed CXRP [XR chest 1V portable [id number]] R outine Exams 09/10/20 11:54 Completed XR chest 1V javi ble [id number] Urgent Exams 09/09/20 02:32 Completed CV carotid duplex BI* [id number] Routine Ultrasound 09/12/20 11:50 [place] [id number] Routin e Ultrasound 09/12/20 11:45 Completed Pending at discharge Category Date Time Status CA cardiac event monitor Routine Exams 09/12/20 11:51 Ordered Blood Culture Sta t Lab 09/09/20 03:15 Results Histoplasma Quant itative AG Routine Lab 09/09/20 Ordered Respiratory Viral Panel PCR Routine Lab 09/10/20 17:28 Received Sputum Culture an d Gram Stain Routi ne Lab 09/11/20 19:18 Results Labs from last 24 hours 09/13/20 09/13/20 05:40 05:40 WBC 4.4 RBC 4.48 Hgb 13.8 Hct 41.6 L MCV 92.9 MCH 30.8 MCHC 33.2 RDW 13.1 Plt Count 156 MPV 10.0 Neut % (Auto) 47.6 Lymph % (Auto) 40.4 [place] % (Auto) 11.6 Eos % (Auto) 0.0 Baso % (Auto) 0.2 Neut # (Auto) 2.08 Lymph # (Auto) 1.8 [place] # (Auto) 0.5 Eos # (Auto) 0.0 Baso # (Auto) 0.0 Nucleated RBC % (a uto) 0 Nucleated RBCs # 0.0 Sodium 139 Potassium 3.3 L Chloride 104 Carbon Dioxide 27 Anion Gap 11.3 BUN 13 Creatinine 0.8 GFR Calculation Not Reportable Glucose 93 Calculated Osmolal ity 288 Calcium 8.1 L Vitals: Last Vital Signs Temp 97.4 F L 09/13/20 08:00 Pulse 71 09/13/20 08:21 Resp 18 09/13/20 08:21 BP 106/68 09/13/20 08:00 Pulse Ox 92 09/13/20 08:21 Discharge Plan Discharge Patient Disposition: Home Condition: Stable Prescriptions: New fluconazole 100 mg Tablet 100 mg PO DAILY 9 Days RF: 0 hydrocortisone 10 mg Tablet 10 mg PO DAILY@1200 30 Days RF: 0 levofloxacin 750 mg Tablet 500 mg PO DAILY@0600 5 Days RF: 0 Continued lisinopril 5 mg tablet 5 mg PO DAILY@12 RF: 0 aspirin 81 mg Tablet,Chewable 81 mg PO DAILY@12 RF: 0 levothyroxine 112 mcg Tablet 112 mcg PO DAILY@07 RF: 0 hydrocortisone 20 mg tablet See Rx Instructions .ROUTE .COMPLEX RF: 0 Spiriva Respimat 2.5 mcg/actuation mist 2 puff inhalation DAILY@0800 RF: 0 Discharge Orders: Discharge Order (Routine); Ordered 09/13/20 Ordered By: Sina Sweet Referrals: Ivory Davis PARTS PROFESSIONAL [Primary Care Provider] - 09/23/20 10:00 am Discharge Diet: Regular Discharge Activity: Resume usual activity Patient Instructions: Fluconazole (By mouth), Levofloxacin (By mouth), Hydrocortisone (By mouth), Syncope, Holter Monitoring (DC), Oral Candidiasis (GEN) Activity Restrictions/Additional Instructions: NEEDS APPOINTMENT FOR EVENT MONITOR FROM HEART CARE Discharge Attestations Time Spent in Discharge Care*: less than 30 min Specific Discharge Activities: educating patient, educating and/or supporting family/caregiver, discussing with watch case polisher/social workers/dc planners, documenting/other paperwork and evaluating patient/reviewing data Status at Discharge: Cognitive status at discharge: cognitively intact, Behavioral status at discharge: cooperative, Quality Metrics Clinical Quality Measures During this hospital stay, did patient experience: None Coding Level of Care Code Acute Chg FW DC note Diagnoses Sepsis A41.9 Sepsis acute organ dysfunction status: unspecified Sepsis type: sepsis due to unspecified organism Recurrent syncope R55 Altered mental status R41.82 Altered mental status type: unspecified COPD (chronic obstructive pulmonary disease) J44.9 Oral thrush B37.0
[2020-09-13] MEDS: aspirin 81 mg Chew Tablet PO (12:16)
[2020-09-13] MEDS: hydrocortisone 10 mg Tablet PO (12:16)
[2020-09-13] MEDS: lisinopril 5 mg Tablet PO (12:16)
--- NOTE | 2020-09-13 12:26 | PC.NURSE ---
patient verbalizes understanding of discharge instructions, medications, and follow up appointments. Heart care will call pt with an appointment for the cardiac event monitor. all current questions answered
--- NOTE | 2020-09-14 10:54 | PC.SOCIAL ---
called and spoke with Adm restaurant assistant manager Pat. She indicates that [facility] did not receive new scripts. Called [facility] and verified this to be the case. Called in all three new meds verbally to Katia. She repeated them back to confirm. Called to update her and indicates she does not want the hydrocortisone filled since he gets this from [facility] [employer] [facility]. Called [facility] back and spoke to Amie. She will give Katia the message to not fill this medication.
[2020-09-14 13:07] LABS: Adenovirus Not Detected (Not Detected); Human Metapneumovirus Not Detected (Not Detected); Human Parainflu Virus 1 Not Detected (Not Detected); Human Parainflu Virus 2 Not Detected (Not Detected); Human Parainflu Virus 3 Not Detected (Not Detected); Human Rsv A Not Detected (Not Detected); Influenza A Not Detected (Not Detected); Influenza B Not Detected (Not Detected); Rhinovirus/Enterovirus Detected (Not Detected)
== END 2020-09-13 12:33 | disposition home or self-care (01) | DRG 871 ==
LOC: ER 04:45 → ICU 04:51 → MEDSURG 09-10 17:39
PROVIDERS: Student in an Organized Health Care Education/Training Program; Admitting Provider Hospitalist; Emergency Provider Emergency Medicine; PCP Nurse Practitioner; Visit Provider Internal Medicine
DX: A41.9 Sepsis, unspecified organism (principal); G93.41 Metabolic encephalopathy; J18.9 Pneumonia, unspecified organism; J96.01 Acute respiratory failure with hypoxia; J44.0 Chronic obstructive pulmonary disease with (acute) lower respiratory infection; E27.40 Unspecified adrenocortical insufficiency; B37.0 Candidal stomatitis; E87.2 Acidosis; I10 Essential (primary) hypertension; Z86.16 Personal history of COVID-19; D35.2 Benign neoplasm of pituitary gland; I73.9 Peripheral vascular disease, unspecified; E03.9 Hypothyroidism, unspecified; Z87.891 Personal history of nicotine dependence; Z99.81 Dependence on supplemental oxygen; R55 Syncope and collapse
CPT/HCPCS: 36415; 36416; 36569; 51702; 70450; 71045; 71250; 74176; 80048; 80053; 80202; 81003; 82803; 82962; 83605; 83735; 83880; 84145; 84443; 85025; 85610; 87040; 87070; 87205; 87385; 87426; 87641; 87804; 93005; 93271; 93880; 93970; 94640; 94664; 96365; 96367; 96372; 99291; J1650; J2543; J3370; J3490; J7030; J7050; J7626; J8499; Q0144

== ENCOUNTER 2020-09-26 07:56 | Outpatient (CLI) | payer MEDICARE, OTHER, SELFPAY ==
--- NOTE | 2020-09-26 08:04 | US_ITS ---
WS: [id number] RIGHT UPPER QUADRANT ULTRASOUND HISTORY: RUQ ABD PAIN/BLOATING COMPARISON: 08/23/2009 Liver: 15.5 cm in length. Liver is normal size. Coarse echotexture and attenuation suggesting at leas t moderate hepatic steatosis. Gallbladder: Well distended gallbladder. This area of calcification measuring 1.4 cm without shadowin g in the gallbladder. This may be a calcified polyp or stone. No wall thickening. No pericholecystic fluid. CBD: 0.6 cm Pancreas: Not well visualized. Right kidney: 11.7 cm in length. Normal size kidney. Cyst from the upper pole measures 2.9 x 2.7 x 2. 8 cm. No hydronephrosis. There is a cortical calcification but the level cannot be determined on the images submitted. Aorta and IVC: Unremarkable abdominal aorta and IVC. No ascites. US/US gall bladder [id number] IMPRESSION: 1. Quality of this examination is limited. 2. Small gallstone versus partially calcified polyp. 3. RIGHT renal cyst.
== END 2020-09-26 07:57 | disposition home or self-care (01) ==
LOC: RAD 08:01
PROVIDERS: PCP Nurse Practitioner; Visit Provider Nurse Practitioner
DX: R10.11 Right upper quadrant pain (principal); R14.0 Abdominal distension (gaseous); N28.1 Cyst of kidney, acquired
CPT/HCPCS: 76705

== ENCOUNTER 2020-10-26 08:57 | Outpatient (CLI) | payer MEDICARE, OTHER, SELFPAY ==
--- NOTE | 2020-10-26 09:30 | US_ITS ---
WS: [id number] RIGHT UPPER QUADRANT ULTRASOUND HISTORY: K82.4 - Cholesterolosis of gallbladder COMPARISON: 09/26/2020 Liver: 14.4 cm in length. Normal size liver. Marked attenuation of hepatic steatosis within the liver . No bile duct dilatation. Gallbladder: Poorly visualized gallbladder. Gallbladder is slightly contracted and contains a stone. Gallbladder wall is top normal size. CBD: 0.3 cm Pancreas: Poorly visualized. Right kidney: 10.8 cm in length. Normal size kidney. No hydronephrosis. Simple cyst from the inferior pole measures 3.0 x 2.6 x 3.1 cm. Echogenic focus in the lower pole is probably an area of fat. No c alcifications noted on recent CT. Aorta and IVC: Not visualized. No ascites. US/US gall bladder [id number] IMPRESSION: 1. Cholelithiasis. No evidence for acute cholecystitis. No bile duct dilatatio n. 2. Moderate hepatic steatosis.
== END 2020-10-26 08:58 | disposition home or self-care (01) ==
LOC: US 09:00
PROVIDERS: PCP Nurse Practitioner; Visit Provider Surgery
DX: K82.4 Cholesterolosis of gallbladder (principal); E88.89 Other specified metabolic disorders
CPT/HCPCS: 76705

== ENCOUNTER 2020-11-30 23:17 | Emergency (ER) | payer MEDICARE, OTHER, SELFPAY ==
[2020-11-30 23:34] VITALS: BP 210/98; PULSE 74; RESP 16; TEMP 36.6; O2SAT 93; BMI 33.9
--- NOTE | 2020-11-30 23:44 | ECG_ITS ---
[facility] Test Date: 2020-11-30 Pat Name: Rashid Bolivar Department: Room: Gender: Male Transition Of Care Specialist: : 1935 Requested By: Stacia Mcdaniel Order Number: [id number] Jean MD: Jaspreet Luna M.D. Measurements Intervals [place] Rate: 73 P: 15 DE: 186 QRS: -16 QRSD: 119 T: 38 QT: 442 QTc: 489 Interpretive Statements SINUS RHYTHM INDETERMINATE AXIS RIGHT BUNDLE BRANCH BLOCK [120+ ms QRS DURATION, UPRIGHT V1, 40+ ms S IN I/aVL/V4/V5/V6] Compared to ECG 09/09/2020 02:47:54 Right bundle-branch block now present Sinus tachycardia no longer present Atrial abnormality no longer present Electronically Signed On 12-01-2020 18:24:16 CDT by Jaspreet Luna M.D. [id number]
--- NOTE | 2020-11-30 23:47 | ED_ITS ---
HPI - Abdominal Pain General: Chief Complaint: Abdominal Pain Stated Complaint: n/v/high bp Time Seen by Provider: 11/30/20 23:27 Source: patient Mode of arrival: ambulatory Limitations: no limitations History of Present Illness: HPI narrative: 85-year-old male states has been having abdominal pain over the last 4 hours. He states he had a sharp pain in his epigastric region in his right upper quadrant. He denies any worsening improving factors. He states he is also had some nausea with vomiting and notes that he was having hypertension as well. He denies any chest pain. Denies any fevers. Denies any diarrhea. MD elicited complaint: abdominal pain Associated Symptoms: Denies chills, dysuria and fever(s) Review of Systems Const: Denies: fever(s), chills, body aches or change in appetite Eyes: Denies: blurry vision or eye discomfort ENMT: Denies: throat pain or dental pain Card: Denies: chest pain Resp: Denies: dyspnea GI: Reports: abdominal pain : Denies: dysuria Musc: Denies: neck pain or back pain Skin/Breast: Denies: rash Neuro: Denies: headache(s) Psych: Denies: depression Gumaro/Lymph: Denies: easy bruising All/Imm: Denies: urticaria PFSH ED PFSH: Medical History (Updated 12/01/20 @ 02:30 by Stacia Mcdaniel MD) Acute respiratory failure with hypoxia Adrenal insufficiency CHERI (acute kidney injury) Altered mental status COPD (chronic obstructive pulmonary disease) COVID-19 Elevated brain natriuretic peptide (BNP) level Elevated d-dimer Elevated lactic acid level Hypertension Hypothyroidism Hypoxia Oral thrush Peripheral arterial disease Recurrent syncope Sepsis Sepsis Thyroid disease Surgical History H/O brain surgery History of gastric surgery History of prostate surgery Family History Denies family history of Diabetes CAD (coronary artery disease) Clotting disorder Dementia Hyperlipidemia Psychiatric illness Chronic kidney disease (CKD) Suicide Anesthesia complication Bleeding disorder Family history of premature coronary artery disease Lung disease Cancer Hypertension Stroke Social History Smoking and tobacco status: former smoker Quit status (tobacco): has quit using tobacco Year quit tobacco: 1999 [id number] cig/pipe Second hand smoke exposure: No Smoking risk assessment/counseling performed?: Yes Alcohol intake: never Lives independently: Yes Household members: spouse Housing: House Marital status: service: No Current occupational status: retired Pets and animals: No History of recent travel: No Current gender identity: Male Physical Exam Const: COMMON NORMALS: no acute distress, patient oriented x3 and healthy appearing HENMT: COMMON NORMALS: normocephalic and atraumatic HEAD & SCALP: normocephalic and atraumatic Eye: COMMON NORMALS: Equal, round and reactive pupils present and EOMs intact bilaterally PUPIL: Yes Equal, round and reactive pupils present Neck/C-Spine: COMMON NORMALS: full ROM and supple Chest: COMMONS NORMALS: normal inspection of the chest and normal palpation of entire chest wall Resp: COMMON NORMALS: normal respiratory effort, No retractions, No use of accessory muscles and clear to auscultation bilaterally AUSCULTATION: clear to auscultation bilaterally Cardio: COMMON NORMALS: regular rate, regular rhythm and No murmurs present (Cardio) RATE: regular rate RHYTHM: regular rhythm GI: COMMON NORMALS: Normal to inspection, nondistended, normoactive bowel sounds present, Soft to palpation and no masses PALPATION: Yes Soft to palpation and Yes Tenderness to palpation present (GI) Details: LUQ and RUQ Extremity: COMMON NORMALS: normal to inspection and full ROM Neuro: COMMON NORMALS: patient oriented x3, moves all extremities and no focal motor deficits Psych: COMMON NORMALS: mental status grossly normal, Normal thought process present and cooperative THOUGHT PROCESS: Normal thought process present Skin: COMMON NORMALS: no rashes or lesions noted and no wounds GENERAL SKIN EXAM: no rashes or lesions noted Course Vital Signs: Vital signs: Vital Signs Temperature 98 F 11/30/20 23:34 Pulse Rate 71 12/01/20 02:02 Respiratory Rate 18 12/01/20 02:02 Blood Pressure 152/76 12/01/20 02:02 Pulse Oximetry 92 12/01/20 02:02 MDM - Abdominal Pain MDM Narrative: Medical decision making narrative: Patient presents here with abdominal pain is since totally resolved. CT shows no signs of cholecystitis and his blood work is all normal as well. Repeat exam at discharge is benign he has no tenderness in the right upper quadrant. He has an appointment with Dr. Sharma next week already. He is to return to the ER if his pain returns. He understands agrees to this plan. Lab Data: Labs: Lab Results 12/01/20 12/01/20 12/01/20 Range/Units 00:13 00:13 00:13 WBC 6.9 (4.0-10.0) 10^3/ uL RBC 4.68 (4.1-5.3) 10^6/u L Hgb 14.5 (11.7-16.6) g/dL Hct 43.7 (42.0-52.0) % MCV 93.4 (80-94) fL MCH 31.0 (28.0-34.0) pg MCHC 33.2 (30.0-36.0) g/dL RDW 14.1 (12.1-15.1) % Plt Count 163 (130-400) 10^3/c mm MPV 9.8 (7.4-10.4) fL Neut % (Auto) 60.2 % Lymph % (Auto) 29.5 % Crowley % (Auto) 9.6 % Eos % (Auto) 0.0 % Baso % (Auto) 0.4 % Neut # (Auto) 4.16 (1.8-7.7) 10^3/u L Lymph # (Auto) 2.0 (0.8-4.8) 10^3/u L Crowley # (Auto) 0.7 (0.2-0.9) 10^3/u L Eos # (Auto) 0.0 (0.0-0.8) 10^3/u L Baso # (Auto) 0.0 (0.0-0.1) 10^3/u L Nucleated RBC % (a uto) 0 % Nucleated RBCs # 0.0 /100WBC Sodium 139 (136-145) mmol/L Potassium 3.9 (3.5-5.1) mmol/L Chloride 103 (98-107) mmol/L Carbon Dioxide 27 (22-29) mmol/L Anion Gap 12.9 (5-19) BUN 25 H (8-23) mg/dL Creatinine 1.1 (0.7-1.2) mg/dL GFR Calculation Not Reportable Glucose 144 H (65-115) mg/dL Calculated Osmolal ity 295 (285-295) mOsm/k g Lactate 1.4 (0.5-2.2) mmol/L Calcium 8.5 (8.5-10.5) mg/dL Total Bilirubin 0.3 (0.15-1.2) mg/dL AST 27 (0-40) U/L ALT 28 (0-41) U/L Alkaline Phosphata se 52 (40-130) IU/L Total Protein 6.9 (6.6-8.7) g/dL Albumin 4.0 (3.5-5.2) g/dL Globulin 2.9 (1.3-4.6) g/dL Lipase 20 (13-60) U/L Imaging Data ^: CT Abd/Pel: Attestation: I personally reviewed and interpreted this imaging study as follows: Radiologist's impression: [address] [place] [id number] Scan Report Signed Patient: Rashid Bolivar Unit #: [id number] : 1935 Age/Sex: 85 / M ADM Date: 11/30/20 Loc: ER Room/Bed: Attending Dr: Ordering Provider/Ordering MD: Stacia Mcdaniel MD Date of Service: 12/01/20 Procedure(s): CT abdomen pelvis w con* [id number] Accession Number(s): [id number] Report Number: [id number] PROCEDURE INFORMATION: Exam: CT Abdomen And Pelvis With Contrast Exam date and time: 12/01/2020 12:25 AM Age: 85 years old Clinical indication: Nausea and vomiting; Abdominal pain; Prior surgery; Surgery type: Small bowel resection; Patient HX: Epigastric pain with n/v. ; Additional info: Abd pain TECHNIQUE: Imaging protocol: Computed tomography of the abdomen and pelvis with contrast. Radiation optimization: All CT scans at this facility use at least one of these dose optimization techniques: automated exposure control; mA and/or kV adjustment per patient size (includes targeted exams where dose is matched to clinical indication); or iterative reconstruction. Contrast material: OMNI 300; Contrast volume: 95 ml; Contrast route: INTRAVENOUS (IV); COMPARISON: CT chest abd pel wo con 09/09/2020 6:27 PM RADIATION DOSE METRICS: Total DLP (mGy-cm): 1803.46 FINDINGS: Lungs: The lung bases are clear. No effusion Liver: Normal. No mass. Gallbladder and bile ducts: Common duct is dilated measuring 12 mm. However, no obstructing lesion or stone is identified. Pancreas: Normal. No ductal dilation. Spleen: Normal. No splenomegaly. Adrenal glands: Normal. No mass. Kidneys and ureters: 3 cm right renal cyst. 3.5 cm left renal cyst. Stomach and bowel: Diverticulosis without diverticulitis. Changes of prior small bowel surgery. Appendix: Appendix has been removed. Intraperitoneal space: Unremarkable. No free air. No significant fluid collection. Vasculature: Unremarkable. No abdominal aortic aneurysm. Lymph nodes: Unremarkable. No enlarged lymph nodes. Urinary bladder: Unremarkable as visualized. Reproductive: Unremarkable as visualized. Bones/joints: Unremarkable. No acute fracture. Soft tissues: Unremarkable. CT/CT abdomen pelvis w con* [id number] IMPRESSION: 1. Common duct is dilated measuring 12 mm. However, no obstructing lesion or stone is identified. 2. Diverticulosis without diverticulitis. COMMENTS: Consistent with the [employer]'s Incidental Findings Committee white paper (J Am Aida Radiol 2018): Any incidental renal lesion less than 1 cm or classified as too small to characterize, or any incidental cystic renal lesion characterized as simple-appearing, is likely benign. No follow-up imaging is recommended for these lesions per consensus recommendations based on imaging criteria. Radiation Dose CTDIVOL = (mGy): DLP = 1803.46 (mGy-cm) Dictated By: Dario Jackson Signed By: Dario Jackson Signed Date/Time: 12/01/20 0224 EKG Data ^: EKG 1: Attestation: I personally reviewed and interpreted this EKG as follows: EKG interpretation date: 11/30/20 EKG interpretation time: 23:52 Interpretation: nsr hr [address] or t wave abnormalities qrs 119 qtc 468 Discharge Plan Discharge Patient Disposition: Home Clinical Impression: Abdominal pain Qualifiers: Abdominal location: upper abdomen, unspecified Qualified Code(s): R10.10 - Upper abdominal pain, unspecified Condition: Stable Prescriptions: New Protonix 40 mg tablet,delayed release (DR/EC) 40 mg PO DAILY Qty: 60 RF: 0 No Action lisinopril 5 mg tablet 5 mg PO DAILY@12 RF: 0 fluticasone propion-salmeterol 250-50 mcg/dose blister with device 1 inh inhalation BID Qty: 60 RF: 3 aspirin 81 mg Tablet,Chewable 81 mg PO DAILY@12 RF: 0 levothyroxine 112 mcg Tablet 112 mcg PO DAILY@07 RF: 0 hydrocortisone 20 mg tablet See Rx Instructions .ROUTE .COMPLEX RF: 0 Discharge Orders: Discharge ED (Routine); Ordered 12/01/20 Ordered By: Stacia Mcdaniel Referrals: Ivory Davis APN [Primary Care Provider] - Masoud Sharma MD [Physician] - 1-3 days Discharge Diet: Advance as tolerated Discharge Activity: Resume usual activity Patient Instructions: Abdominal Pain (ED) Coding Level of Care Code ED Associate Medical Director for Sjg Fwd Exam Comprehensive
[2020-12-01 00:19] LABS: Basophils % 0.4 %; Hematocrit 43.7 % (42.0-52.0); Hemoglobin 14.5 g/dL (11.7-16.6); Lymphocytes % 29.5 %; Mean Corpuscular HGB Conc 33.2 g/dL (30.0-36.0); Mean Corpuscular Volume 93.4 fL (80-94); Mean Platelet Volume 9.8 fL (7.4-10.4); Monocytes # 0.7 10^3/uL (0.2-0.9); Monocytes % 9.6 %; Neutrophils # 4.16 10^3/uL (1.8-7.7); Neutrophils % 60.2 %; Nucleated Red Blood Cells % 0 %; Platelet Count 163 10^3/cmm (130-400); Red Blood Count 4.68 10^6/uL (4.1-5.3); Red Cell Distribution Width 14.1 % (12.1-15.1); White Blood Count 6.9 10^3/uL (4.0-10.0)
--- NOTE | 2020-12-01 00:25 | CTR_ITS ---
PROCEDURE INFORMATION: Exam: CT Abdomen And Pelvis With Contrast Exam date and time: 12/01/2020 12:25 AM Age: 85 years old Clinical indication: Nausea and vomiting; Abdominal pain; Prior surgery; Surgery type: Small bowel resection; Patient HX: Epigastric pain with n/v. ; Additional info: Abd pain TECHNIQUE: Imaging protocol: Computed tomography of the abdomen and pelvis with contrast. Radiation optimization: All CT scans at this facility use at least one of these dose optimization techniques: automated exposure control; mA and/or kV adjustment per patient size (includes targeted exams where dose is matched to clinical indication); or iterative reconstruction. Contrast material: OMNI 300; Contrast volume: 95 ml; Contrast route: INTRAVENOUS (IV); COMPARISON: CT chest abd pel wo con 09/09/2020 6:27 PM RADIATION DOSE METRICS: Total DLP (mGy-cm): 1803.46 FINDINGS: Lungs: The lung bases are clear. No effusion Liver: Normal. No mass. Gallbladder and bile ducts: Common duct is dilated measuring 12 mm. However, no obstructing lesion or stone is identified. Pancreas: Normal. No ductal dilation. Spleen: Normal. No splenomegaly. Adrenal glands: Normal. No mass. Kidneys and ureters: 3 cm right renal cyst. 3.5 cm left renal cyst. Stomach and bowel: Diverticulosis without diverticulitis. Changes of prior small bowel surgery. Appendix: Appendix has been removed. Intraperitoneal space: Unremarkable. No free air. No significant fluid collection. Vasculature: Unremarkable. No abdominal aortic aneurysm. Lymph nodes: Unremarkable. No enlarged lymph nodes. Urinary bladder: Unremarkable as visualized. Reproductive: Unremarkable as visualized. Bones/joints: Unremarkable. No acute fracture. Soft tissues: Unremarkable. CT/CT abdomen pelvis w con* [id number] IMPRESSION: 1. Common duct is dilated measuring 12 mm. However, no obstructing lesion or stone is identified. 2. Diverticulosis without diverticulitis. COMMENTS: Consistent with the [employer]'s Incidental Findings Committee white paper (J Am Aida Radiol 2018): Any incidental renal lesion less than 1 cm or classified as too small to characterize, or any incidental cystic renal lesion characterized as simple-appearing, is likely benign. No follow-up imaging is recommended for these lesions per consensus recommendations based on imaging criteria. Radiation Dose CTDIVOL = (mGy): DLP = 1803.46 (mGy-cm)
[2020-12-01 00:27] VITALS: BP 176/93; PULSE 72; RESP 18; O2SAT 93
--- NOTE | 2020-12-01 00:27 | PC.NURSE ---
Pt reports he uses O2 via NC at home prn every couple of days . SATS 88% RA upon arrival to room, placed on 3L O2 NC; SATS now 93%.
[2020-12-01] MEDS: HYDROmorphone 1 mg/mL INJ 1 mL 0.5 MG IVP (00:29)
[2020-12-01] MEDS: ondansetron 2 mg/ML SDV 2 mL 4 MG IVP (00:29)
[2020-12-01 00:41] LABS: Lactate (Lactic Acid level) 1.4 mmol/L (0.5-2.2)
[2020-12-01 00:42] LABS: Alanine Aminotransferase 28 U/L (0-41); Alkaline Phosphatase 52 IU/L (40-130); Anion Gap 12.9 (5-19); Aspartate Amino Transferase 27 U/L (0-40); Blood Urea Nitrogen 25 mg/dL (8-23); Calcium 8.5 mg/dL (8.5-10.5); Carbon Dioxide 27 mmol/L (22-29); Chloride 103 mmol/L (98-107); Globulin 2.9 g/dL (1.3-4.6); Glucose 144 mg/dL (65-115); Lipase 20 U/L (13-60); Osmolality Calculated 295 mOsm/kg (285-295); Potassium 3.9 mmol/L (3.5-5.1); Sodium 139 mmol/L (136-145); Total Bilirubin 0.3 mg/dL (0.15-1.2); Total Protein 6.9 g/dL (6.6-8.7)
[2020-12-01 00:56] VITALS: BP 200/113; PULSE 88; RESP 18; O2SAT 91
[2020-12-01] MEDS: iohexol 300 mg/mL 100 mL Btl IV (01:01)
[2020-12-01 02:02] VITALS: BP 152/76; PULSE 71; RESP 18; O2SAT 92
[2020-12-01 02:46] VITALS: BP 132/91; PULSE 74; RESP 18; O2SAT 92
== END 2020-12-01 02:48 | disposition home or self-care (01) ==
PROVIDERS: Emergency Provider Emergency Medicine; PCP Nurse Practitioner
DX: R10.10 Upper abdominal pain, unspecified (principal); Z79.82 Long term (current) use of aspirin; J44.9 Chronic obstructive pulmonary disease, unspecified; I10 Essential (primary) hypertension; Z87.891 Personal history of nicotine dependence
CPT/HCPCS: 74177; 80053; 83605; 83690; 85025; 93005; 96374; 96375; 99283; J1170; J2405; Q9967

== ENCOUNTER 2020-12-20 06:42 | Emergency (ER) | payer MEDICARE, OTHER, SELFPAY ==
[2020-12-20 07:13] VITALS: BP 164/89; PULSE 74; RESP 16; TEMP 36.3; O2SAT 92; BMI 33.9
--- NOTE | 2020-12-20 07:19 | XR_ITS ---
WS: [id number] ABDOMEN 1 VIEW(S) HISTORY: abd pain COMPARISON: 08/26/2009 Normal bowel gas pattern. No suspicious mass or calcification. Surgical clip over the RIGHT sacrum. Calcification in the spleni c artery. No calcifications in the RIGHT upper quadrant. LEFT convex curvature lumbar spine. XR/XR KUB portable [id number] IMPRESSION: 1. Normal bowel gas pattern. 2. No obstruction evident.
--- NOTE | 2020-12-20 07:19 | XR_ITS ---
WS: [id number] PORTABLE CHEST HISTORY: cough; hypoxia; copd COMPARISON: 08/15/2020 Area of increased consolidation at the medial RIGHT lung base has been present on prior examinations and thought to be related to dilated pulmonary structures. Prior CT demonstrated no mass. Pleural thi ckening on the RIGHT. No pleural effusion or pneumothorax. Cardiac size: Moderately enlarged cardiac silhouette. Mediastinum/Aorta: Moderate atherosclerosis aorta. No osseous abnormality seen. XR/XR chest 1V portable [id number] IMPRESSION: 1. Cardiomegaly and stable consolidation at the medial RIGHT lung base. 2. No pneumonia.
--- NOTE | 2020-12-20 07:20 | ECG_ITS ---
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 Operator: : 1935 Requested By: Jose Antonio Givens Order Number: [id number] Reading MD: KRISTINE CHRISTINA Measurements Intervals Morris Rate: 75 P: 193 PA: 164 QRS: 179 QRSD: 114 T: 163 QT: 434 QTc: 487 Interpretive Statements SINUS RHYTHM WITH OCCASIONAL VENTRICULAR PREMATURE COMPLEXES ARM LEADS REVERSED [INVERTED P AND QRS IN I] Compared to ECG 11/30/2020 23:52:24 Ventricular premature complex(es) now present Indeterminate axis no longer present Right bundle-branch block no longer present Electronically Signed On 12-20-2020 20:12:32 CDT by KRISTINE CHRISTINA [id number]
--- NOTE | 2020-12-20 07:23 | US_ITS ---
WS: [id number] RIGHT UPPER QUADRANT ULTRASOUND HISTORY: abdominal pain COMPARISON: 10/26/2020 Liver: 16.2 cm in length. Liver is top normal size. Coarse echotexture. Surface of the liver is sligh tly irregular and nodular suggesting early changes of cirrhosis. No bile duct dilatation. Gallbladder: Gallbladder is normally distended. There is at least one stone within the lumen identifi ed. No gallbladder wall thickening. Small amount of gallbladder sludge is also suspected in the depen dent portion of the gallbladder. CBD: Common bile duct is not very well visualized. There are several images where the duct does appea r to be dilated greater than 1 cm. No intrahepatic duct dilatation. Pancreas: Normal size and echogenicity. Right kidney: 11.0 cm in length. Normal size kidney. Hypoechoic mass within the posterior kidney towa rds the lower pole measures 2.6 x 1.8 cm. 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 Aorta and IVC: Unremarkable abdominal aorta and IVC. No ascites. US/US gall bladder [id number] IMPRESSION: 1. Cholelithiasis and gallbladder sludge. Nondistended gallbladder. 2. Common bile duct is dilated to at least 1 cm. Cannot exclude choledocholith iasis. 3. No intrahepatic bile duct dilatation. 4. Hepatic steatosis.
--- NOTE | 2020-12-20 07:23 | ED_ITS ---
HPI - Abdominal Pain General: Chief Complaint: Abdominal Pain Stated Complaint: Upper ABD pain Time Seen by Provider: 12/20/20 07:07 Source: patient and family Mode of arrival: ambulatory Limitations: no limitations History of Present Illness: HPI narrative: Patient states he has had right upper quadrant and epigastric eidta pain since 1:00 in the morning. States he ate fatty foods yesterday. He is scheduled for cholecystectomy on January 10 due to gallstones. Denies any shortness of breath. However, he does have occasional cough. States she occasionally has to wear oxygen due to COPD. He does have a past medical history of COPD, pneumonia in the past, hypertension. Past surgical history includes partial small bowel removal due to ischemia. Pulse oximetry is 86 to 88% on room air. MD elicited complaint: abdominal pain Pertinent past history: other (Gallstones, COPD) Onset (ago): hour(s) (Started at 1 AM) Pain Consistency: constant Location: Epigastric and RUQ Severity: moderate Quality: cramping and sharp Radiation: none Migration to: no migration Exacerbating factors: eating Relieving factors: nothing Associated Symptoms: Reports nausea; Denies constipation, fever(s), hematochezia, hematemesis and vomiting Review of Systems Const: Denies: fever(s) Eyes: Denies: change in vision ENMT: Denies: throat pain Card: Denies: chest pain or palpitations Resp: Reports: non-productive cough; Denies: dyspnea, wheezing, stridor or chest congestion GI: Reports: abdominal pain and nausea; Denies: vomiting, hematemesis, constipation or hematochezia : Denies: flank pain Musc: Denies: neck pain or back pain Skin/Breast: Denies: rash or pruritus Neuro: Denies: headache(s) or numbness in extremities Psych: Denies: anxiety Gumaro/Lymph: Denies: enlarged lymph nodes PFSH ED PFSH: Medical History Acute respiratory failure with hypoxia Adrenal insufficiency CHERI (acute kidney injury) Altered mental status COPD (chronic obstructive pulmonary disease) COVID-19 Elevated brain natriuretic peptide (BNP) level Elevated d-dimer Elevated lactic acid level Hypertension Hypothyroidism Hypoxia Oral thrush Peripheral arterial disease Recurrent syncope Sepsis Sepsis Thyroid disease Surgical History H/O brain surgery History of gastric surgery History of prostate surgery Family History Denies family history of Diabetes CAD (coronary artery disease) Clotting disorder Dementia Hyperlipidemia Psychiatric illness Chronic kidney disease (CKD) Suicide Anesthesia complication Bleeding disorder Family history of premature coronary artery disease Lung disease Cancer Hypertension Stroke Social History Smoking and tobacco status: former smoker Quit status (tobacco): has quit using tobacco Year quit tobacco: 1999 [id number] cig/pipe Second hand smoke exposure: No Smoking risk assessment/counseling performed?: Yes Alcohol intake: never Lives independently: Yes Household members: spouse Housing: House Marital status: service: No Current occupational status: retired Pets and animals: No History of recent travel: No Current gender identity: Male Physical Exam Const: COMMON NORMALS: no acute distress, patient oriented x3, no limitations and well nourished GENERAL APPEARANCE: cooperative NUTRITIONAL APPEARANCE: obese ORIENTATION/CONSCIOUSNESS: Yes awake, Yes oriented to person, Yes oriented to place and Yes oriented to time HENMT: COMMON NORMALS: normocephalic and atraumatic HEAD & SCALP: normocephalic and atraumatic FACE & SINUS: normal facial exam Eye: COMMON NORMALS: EOMs intact bilaterally Neck/C-Spine: COMMON NORMALS: full ROM, no lymphadenopathy, supple, no meningeal signs and no JVD GENERAL: Yes normal visual inspection Lymph: LYMPHATIC: no lymphadenopathy noted Chest: COMMONS NORMALS: normal inspection of the chest and normal palpation of entire chest wall CHEST: No Ecchymosis present and No rash Resp: COMMON NORMALS: normal respiratory effort, No retractions, No use of accessory muscles and clear to auscultation bilaterally EFFORT & INSPECTION: No respiratory distress AUSCULTATION: clear to auscultation bilaterally Cardio: COMMON NORMALS: no JVD, regular rate, regular rhythm and Peripheral pulses 2+ throughout JUGULAR VENOUS DISTENTION: no JVD RATE: regular rate RHYTHM: regular rhythm PERIPHERAL PULSES: Peripheral pulses 2+ throughout GI: COMMON NORMALS: Soft to palpation, No hepatosplenomegaly present, no masses and no bruits AUSCULTATION: Yes normoactive bowel sounds PALPATION: Yes Soft to palpation, Yes Tenderness to palpation present (GI) (Moderate right upper quadrant and epigastric abdominal pain. Obese) and Yes No hepatosplenomegaly present : COMMON NORMALS: Yes no CVA tenderness BLADDER/KIDNEY EXAM: Yes no CVA tenderness Back/Pelvis: COMMON NORMALS: no CVA tenderness Extremity: COMMON NORMALS: normal to inspection, full ROM and capillary refill normal Neuro: COMMON NORMALS: patient oriented x3, CN's II-XII intact bilaterally, no focal motor deficits and no sensory deficits noted SENSORIUM/ORIENTATION: Yes oriented to person, Yes oriented to place and Yes oriented to time MENINGEAL SIGNS: Yes no meningeal signs Psych: COMMON NORMALS: mental status grossly normal and Normal thought process present THOUGHT PROCESS: Normal thought process present Skin: COMMON NORMALS: no rashes or lesions noted and no wounds GENERAL SKIN EXAM: no rashes or lesions noted Course Vital Signs: Vital signs: Vital Signs Temperature 97.4 F L 12/20/20 07:13 Pulse Rate 90 12/20/20 09:10 Respiratory Rate 17 12/20/20 11:37 Blood Pressure 127/71 12/20/20 12:36 Pulse Oximetry 97 12/20/20 12:36 MDM - Abdominal Pain MDM Narrative: Medical decision making narrative: 1245: I reviewed the lab test with patient and his . Patient states he feels fine he wants to go home. He has a stress test scheduled for next week for preop for his cholecystectomy. His cholecystectomy is scheduled later in the month. He does have home oxygen at home and I have encouraged him to use that. He agreed to return if worse. I do not see any evidence in his lab work that he has a blocked common bile duct. Differential Diagnosis: Differential diagnosis abdominal pain: Likely abdominal pain (Cholecystitis, biliary colic), diverticulitis and pancreatitis Lab Data: Attestation: I reviewed the patient's lab results. Lab results narrative: 1110: Still awaiting lab results. Lab states they are working on this. Labs: Lab Results 12/20/20 12/20/20 12/20/20 Range/Units 07:30 07:44 07:44 WBC 7.4 (4.0-10.0) 10^3/ uL RBC 4.98 (4.1-5.3) 10^6/u L Hgb 15.2 (11.7-16.6) g/dL Hct 47.0 (42.0-52.0) % MCV 94.4 H (80-94) fL MCH 30.5 (28.0-34.0) pg MCHC 32.3 (30.0-36.0) g/dL RDW 13.9 (12.1-15.1) % Plt Count 161 (130-400) 10^3/c mm MPV 10.1 (7.4-10.4) fL Neut % (Auto) 59.4 % Lymph % (Auto) 26.4 % [place] % (Auto) 10.3 % Eos % (Auto) 3.0 % Baso % (Auto) 0.4 % Neut # (Auto) 4.37 (1.8-7.7) 10^3/u L Lymph # (Auto) 1.9 (0.8-4.8) 10^3/u L [place] # (Auto) 0.8 (0.2-0.9) 10^3/u L Eos # (Auto) 0.2 (0.0-0.8) 10^3/u L Baso # (Auto) 0.0 (0.0-0.1) 10^3/u L Nucleated RBC % (a uto) 0 % Nucleated RBCs # 0.0 /100WBC Specimen Type Arterial Sample Site Brachial, right ABG pH 7.35 (7.35-7.45) ABG pCO2 51.6 H (35-45) mmHg ABG pO2 74.4 L (80.0-100.0) mmH g ABG HCO3 28.3 H (22-26) mmol/L ABG O2 Saturation 95.7 ABG Base Excess 1.5 (-2.0-2.0) mmol/ L Neeraj Test N/a A-a O2 Gradient 8.1 (5-10) mmHg Hematocrit 46.3 (42-52) % Hgb O2 Saturation 94.0 L (95-100) % Carboxyhemoglobin 1.1 (0.4-20.1) %THgb Methemoglobin 0.7 (0.4-1.5) % Total Hemoglobin 15.1 (14-18) g/dL Sodium 141.0 Cancelled (131-143) mmol/L Potassium 3.6 Cancelled (3.5-5.0) mmol/L Glucose 132.0 H Cancelled (70-115) mg/dL Ionized Calcium 1.2 (1.1-1.4) mmol/L O2 Delivery Device Nc O2 Liters/Min 2.0 % FiO2 28.0 % Systems Support Specialist ID Gd Chloride Cancelled Carbon Dioxide Cancelled Anion Gap Cancelled BUN Cancelled Creatinine Cancelled GFR Calculation Cancelled Calculated Osmolal ity Cancelled Calcium Cancelled Total Bilirubin Cancelled AST Cancelled ALT Cancelled Alkaline Phosphata se Cancelled Troponin T Baselin e Troponin T 120 Min [place] (0-15) ng/L Delta Troponin T (0-10) ABS# NT-Pro-B Natriuret Pep Cancelled Total Protein Cancelled Albumin Cancelled Globulin Cancelled Lipase Cancelled Urine Color (Yellow) Urine Appearance (CLEAR) Urine pH (5-7) Ur Specific Gravit y (1.005-1.030) Urine Protein (Negative) Urine Glucose (UA) (Normal) Urine Ketones (Negative) Urine Blood (Negative) Urine Nitrate (Negative) Urine Bilirubin (Negative) Urine Urobilinogen (Negative) mg/dL Ur Leukocyte Kim ase (Negative) Influenza Type A A g (Negative) Influenza Type B A g (Negative) SARS-CoV-2 Ag (Rap id) (Negative) 12/20/20 12/20/20 12/20/20 Range/Units 07:44 09:01 09:01 WBC (4.0-10.0) 10^3/ uL RBC (4.1-5.3) 10^6/u L Hgb (11.7-16.6) g/dL Hct (42.0-52.0) % MCV (80-94) fL MCH (28.0-34.0) pg MCHC (30.0-36.0) g/dL RDW (12.1-15.1) % Plt Count (130-400) 10^3/c mm MPV (7.4-10.4) fL Neut % (Auto) % Lymph % (Auto) % [place] % (Auto) % Eos % (Auto) % Baso % (Auto) % Neut # (Auto) (1.8-7.7) 10^3/u L Lymph # (Auto) (0.8-4.8) 10^3/u L [place] # (Auto) (0.2-0.9) 10^3/u L Eos # (Auto) (0.0-0.8) 10^3/u L Baso # (Auto) (0.0-0.1) 10^3/u L Nucleated RBC % (a uto) % Nucleated RBCs # /100WBC Specimen Type Sample Site ABG pH (7.35-7.45) ABG pCO2 (35-45) mmHg ABG pO2 (80.0-100.0) mmH g ABG HCO3 (22-26) mmol/L ABG O2 Saturation ABG Base Excess (-2.0-2.0) mmol/ L Neeraj Test A-a O2 Gradient (5-10) mmHg Hematocrit (42-52) % Hgb O2 Saturation (95-100) % Carboxyhemoglobin (0.4-20.1) %THgb Methemoglobin (0.4-1.5) % Total Hemoglobin (14-18) g/dL Sodium (131-143) mmol/L Potassium (3.5-5.0) mmol/L Glucose (70-115) mg/dL Ionized Calcium (1.1-1.4) mmol/L O2 Delivery Device O2 Liters/Min % FiO2 % Systems Support Specialist ID Chloride Carbon Dioxide Anion Gap BUN Creatinine GFR Calculation Calculated Osmolal ity Calcium Total Bilirubin AST ALT Alkaline Phosphata se Troponin T Baselin e Cancelled Troponin T 120 Min [place] (0-15) ng/L Delta Troponin T (0-10) ABS# NT-Pro-B Natriuret Pep Total Protein Albumin Globulin Lipase Urine Color (Yellow) Urine Appearance (CLEAR) Urine pH (5-7) Ur Specific Gravit y (1.005-1.030) Urine Protein (Negative) Urine Glucose (UA) (Normal) Urine Ketones (Negative) Urine Blood (Negative) Urine Nitrate (Negative) Urine Bilirubin (Negative) Urine Urobilinogen (Negative) mg/dL Ur Leukocyte Kim ase (Negative) Influenza Type A A g Negative (Negative) Influenza Type B A g Negative (Negative) SARS-CoV-2 Ag (Rap id) Negative (Negative) 12/20/20 12/20/20 12/20/20 Range/Units 10:08 10:08 11:37 WBC (4.0-10.0) 10^3/ uL RBC (4.1-5.3) 10^6/u L Hgb (11.7-16.6) g/dL Hct (42.0-52.0) % MCV (80-94) fL MCH (28.0-34.0) pg MCHC (30.0-36.0) g/dL RDW (12.1-15.1) % Plt Count (130-400) 10^3/c mm MPV (7.4-10.4) fL Neut % (Auto) % Lymph % (Auto) % [place] % (Auto) % Eos % (Auto) % Baso % (Auto) % Neut # (Auto) (1.8-7.7) 10^3/u L Lymph # (Auto) (0.8-4.8) 10^3/u L [place] # (Auto) (0.2-0.9) 10^3/u L Eos # (Auto) (0.0-0.8) 10^3/u L Baso # (Auto) (0.0-0.1) 10^3/u L Nucleated RBC % (a uto) % Nucleated RBCs # /100WBC Specimen Type Sample Site ABG pH (7.35-7.45) ABG pCO2 (35-45) mmHg ABG pO2 (80.0-100.0) mmH g ABG HCO3 (22-26) mmol/L ABG O2 Saturation ABG Base Excess (-2.0-2.0) mmol/ L Neeraj Test A-a O2 Gradient (5-10) mmHg Hematocrit (42-52) % Hgb O2 Saturation (95-100) % Carboxyhemoglobin (0.4-20.1) %THgb Methemoglobin (0.4-1.5) % Total Hemoglobin (14-18) g/dL Sodium 143 (131-143) mmol/L Potassium 4.5 (3.5-5.0) mmol/L Glucose 102 (70-115) mg/dL Ionized Calcium (1.1-1.4) mmol/L O2 Delivery Device O2 Liters/Min % FiO2 % Systems Support Specialist ID Chloride 103 Carbon Dioxide 31 H Anion Gap 13.5 BUN 25 H Creatinine 1.1 GFR Calculation Not Reportable Calculated Osmolal ity 301 H Calcium 8.8 Total Bilirubin 0.4 AST 23 ALT 17 Alkaline Phosphata se 42 Troponin T Baselin e 21 H Troponin T 120 Min [place] (0-15) ng/L Delta Troponin T (0-10) ABS# NT-Pro-B Natriuret Pep 685 H Total Protein 6.5 L Albumin 4.1 Globulin 2.4 Lipase 19 Urine Color Yellow (Yellow) Urine Appearance Clear (CLEAR) Urine pH 5 (5-7) Ur Specific Gravit y 1.025 (1.005-1.030) Urine Protein Neg (Negative) Urine Glucose (UA) Norm (Normal) Urine Ketones Negative (Negative) Urine Blood Neg (Negative) Urine Nitrate Negative (Negative) Urine Bilirubin Neg (Negative) Urine Urobilinogen Norm (Negative) mg/dL Ur Leukocyte Kim ase Negative (Negative) Influenza Type A A g (Negative) Influenza Type B A g (Negative) SARS-CoV-2 Ag (Rap id) (Negative) 12/20/20 Range/Units 12:08 WBC (4.0-10.0) 10^3/ uL RBC (4.1-5.3) 10^6/u L Hgb (11.7-16.6) g/dL Hct (42.0-52.0) % MCV (80-94) fL MCH (28.0-34.0) pg MCHC (30.0-36.0) g/dL RDW (12.1-15.1) % Plt Count (130-400) 10^3/c mm MPV (7.4-10.4) fL Neut % (Auto) % Lymph % (Auto) % [place] % (Auto) % Eos % (Auto) % Baso % (Auto) % Neut # (Auto) (1.8-7.7) 10^3/u L Lymph # (Auto) (0.8-4.8) 10^3/u L [place] # (Auto) (0.2-0.9) 10^3/u L Eos # (Auto) (0.0-0.8) 10^3/u L Baso # (Auto) (0.0-0.1) 10^3/u L Nucleated RBC % (a uto) % Nucleated RBCs # /100WBC Specimen Type Sample Site ABG pH (7.35-7.45) ABG pCO2 (35-45) mmHg ABG pO2 (80.0-100.0) mmH g ABG HCO3 (22-26) mmol/L ABG O2 Saturation ABG Base Excess (-2.0-2.0) mmol/ L Neeraj Test A-a O2 Gradient (5-10) mmHg Hematocrit (42-52) % Hgb O2 Saturation (95-100) % Carboxyhemoglobin (0.4-20.1) %THgb Methemoglobin (0.4-1.5) % Total Hemoglobin (14-18) g/dL Sodium (131-143) mmol/L Potassium (3.5-5.0) mmol/L Glucose (70-115) mg/dL Ionized Calcium (1.1-1.4) mmol/L O2 Delivery Device O2 Liters/Min % FiO2 % Systems Support Specialist ID Chloride Carbon Dioxide Anion Gap BUN Creatinine GFR Calculation Calculated Osmolal ity Calcium Total Bilirubin AST ALT Alkaline Phosphata se Troponin T Baselin e Troponin T 120 Min [place] 18.85 H (0-15) ng/L Delta Troponin T -2.15 L (0-10) ABS# NT-Pro-B Natriuret Pep Total Protein Albumin Globulin Lipase Urine Color (Yellow) Urine Appearance (CLEAR) Urine pH (5-7) Ur Specific Gravit y (1.005-1.030) Urine Protein (Negative) Urine Glucose (UA) (Normal) Urine Ketones (Negative) Urine Blood (Negative) Urine Nitrate (Negative) Urine Bilirubin (Negative) Urine Urobilinogen (Negative) mg/dL Ur Leukocyte Kim ase (Negative) Influenza Type A A g (Negative) Influenza Type B A g (Negative) SARS-CoV-2 Ag (Rap id) (Negative) Imaging Data ^: CXR: Attestation: I personally reviewed and interpreted this imaging study as follows: My impression: Portable chest x-ray shows cardiomegaly, mild pulmonary edema. KUB: Attestation: I personally reviewed and interpreted this imaging study as follows: My impression: Nothing acute on KUB US: Radiologist's impression: Aranza Bolivar #: [id number]: 6Acct#:[id number]/Sex: 85 / MADM Date: 12/20/20Loc: ERRoom/Bed:Attending Dr: Ordering Provider/Ordering MD: Jose Antonio Ashford MD Date of Service: 12/20/20 Procedure(s): US gall bladder 00029 Accession Number(s): [id number] Report Number: [id number] WS: [id number] RIGHT UPPER QUADRANT ULTRASOUND HISTORY: abdominal pain COMPARISON: 10/26/2020 Liver: 16.2 cm in length. Liver is top normal size. Coarse echotexture. Surface of the liver is slightly irregular and nodular suggesting early changes of cirrhosis. No bile duct dilatation. Gallbladder: Gallbladder is normally distended. There is at least one stone within the lumen identified. No gallbladder wall thickening. Small amount of gallbladder sludge is also suspected in the dependent portion of the gallbladder. CBD: Common bile duct is not very well visualized. There are several images where the duct does appear to be dilated greater than 1 cm. No intrahepatic duct dilatation. Pancreas: Normal size and echogenicity. Right kidney: 11.0 cm in length. Normal size kidney. Hypoechoic mass within the posterior kidney towards the lower pole measures 2.6 x 1.8 cm. 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 Aorta and IVC: Unremarkable abdominal aorta and IVC. No ascites. US/US gall bladder 53381 IMPRESSION: 1. Cholelithiasis and gallbladder sludge. Nondistended gallbladder. 2. Common bile duct is dilated to at least 1 cm. Cannot exclude choledocholithiasis. 3. No intrahepatic bile duct dilatation. 4. Hepatic steatosis. Dictated By:Landy Cheung DOSigned By:Landy Cheung DOSigned Date/Time:12/20/20 0810 EKG Data ^: EKG 1: Attestation: I personally reviewed and interpreted this EKG as follows: EKG interpretation date: 12/20/20 EKG interpretation time: 08:40 Prior EKG tracings: not available for review Interpretation: Normal sinus rhythm with right IVCD, right axis, nonspecific ST- T changes, 1 PVC, normal P waves, normal T waves. Discharge Plan Discharge Patient Disposition: Home Clinical Impression: Biliary colic, Hypoxia Abdominal pain Qualifiers: Abdominal location: right upper quadrant Qualified Code(s): R10.11 - Right upper quadrant pain Cholelithiasis Qualifiers: Cholelithiasis location: gallbladder Cholecystitis presence: without cholecystitis Biliary obstruction: without biliary obstruction Qualified Code(s): K80.20 - Calculus of gallbladder without cholecystitis without obstruction COPD (chronic obstructive pulmonary disease) Qualifiers: COPD type: unspecified COPD Qualified Code(s): J44.9 - Chronic obstructive pulmonary disease, unspecified Condition: Stable Prescriptions: New hydrocodone-acetaminophen 5-325 mg tablet 1 tab PO Q6H PRN (Reason: pain) Qty: 15 RF: 0 Zofran 4 mg tablet 4 mg PO Q6H PRN (Reason: nausea and vomiting) Qty: 10 RF: 2 No Action lisinopril 5 mg tablet 5 mg PO DAILY@12 RF: 0 aspirin 81 mg Tablet,Chewable 81 mg PO DAILY@12 RF: 0 levothyroxine 112 mcg Tablet 112 mcg PO DAILY@07 RF: 0 hydrocortisone 20 mg tablet See Rx Instructions .ROUTE .COMPLEX RF: 0 Protonix 40 mg tablet,delayed release (DR/EC) 40 mg PO DAILY@0700 RF: 0 multivitamin 1 tab PO DAILY@0700 RF: 0 Discharge Orders: Discharge ED (Routine); Ordered 12/20/20 Ordered By: Jose Antonio Ashford Referrals: Ivory Davis APN [Primary Care Provider] - Discharge Diet: Low Fat Discharge Activity: Increase activity as tolerated Patient Instructions: Biliary Colic (ED), Chronic Obstructive Pulmonary Disease (ED), Abdominal Pain (ED), Opioid Safety Activity Restrictions/Additional Instructions: Follow-up with your doctors as scheduled. Return if any problems. Use oxygen as needed for any shortness of breath. Avoid fatty foods. Coding Level of Care Code ED Interactive Media Director for Jose Fwd Exam Comprehensive
--- NOTE | 2020-12-20 07:38 | PC.NURSE ---
pt 85% on room air. Pt placed on 2L per nasal cannula
[2020-12-20 07:47] VITALS: RESP 18
[2020-12-20] MEDS: HYDROmorphone 1 mg/mL INJ 1 mL 0.5 MG IVP (07:47)
[2020-12-20 07:49] LABS: ABG PCO2 51.6 mmHg (35-45); ABG PH Result 7.35 (7.35-7.45); Alveolar-Arterial Oxygen Gradi 8.1 mmHg (5-10); Arterial Blood Gas Hematocrit 46.3 % (42-52); Base Excess ABG 1.5 mmol/L (-2.0-2.0); Blood Gas Operator Identificat GD; Blood Gas Sample Site Brachial, right; Blood Gas Sample Type Arterial; Carboxyhemoglobin 1.1 %THgb (0.4-20.1); HCO3 ABG 28.3 mmol/L (22-26); Ionized Calcium Level - ABG 1.2 mmol/L (1.1-1.4); Methemoglobin 0.7 % (0.4-1.5); Oxygen Device NC; Oxygen Saturation ABG 95.7; PO2 ABG 74.4 mmHg (80.0-100.0); Potassium Level - ABG 3.6 mmol/L (3.5-5.0); Total Hemoglobin 15.1 g/dL (14-18)
[2020-12-20] MEDS: ondansetron 2 mg/ML SDV 2 mL 4 MG IVP (07:49)
[2020-12-20 07:52] LABS: Basophils % 0.4 %; Eosinophils # 0.2 10^3/uL (0.0-0.8); Hemoglobin 15.2 g/dL (11.7-16.6); Lymphocytes # 1.9 10^3/uL (0.8-4.8); Lymphocytes % 26.4 %; Mean Corpuscular HGB Conc 32.3 g/dL (30.0-36.0); Mean Corpuscular Hemoglobin 30.5 pg (28.0-34.0); Mean Corpuscular Volume 94.4 fL (80-94); Mean Platelet Volume 10.1 fL (7.4-10.4); Monocytes # 0.8 10^3/uL (0.2-0.9); Monocytes % 10.3 %; Neutrophils # 4.37 10^3/uL (1.8-7.7); Neutrophils % 59.4 %; Nucleated Red Blood Cells % 0 %; Platelet Count 161 10^3/cmm (130-400); Red Blood Count 4.98 10^6/uL (4.1-5.3); Red Cell Distribution Width 13.9 % (12.1-15.1); White Blood Count 7.4 10^3/uL (4.0-10.0)
[2020-12-20 09:10] VITALS: BP 143/84; PULSE 90; RESP 15; O2SAT 95
[2020-12-20 09:52] LABS: Influenza A by IFA Negative (Negative); Influenza B by IFA Negative (Negative); SARS Covid-2 Antigen Negative (Negative)
[2020-12-20 11:24] LABS: Troponin(5th) Baseline 21 ng/L (0-15)
[2020-12-20 11:31] LABS: Alanine Aminotransferase 17 U/L (0-41); Albumin Level 4.1 g/dL (3.5-5.2); Alkaline Phosphatase 42 IU/L (40-130); Aspartate Amino Transferase 23 U/L (0-40); Blood Urea Nitrogen 25 mg/dL (8-23); Calcium 8.8 mg/dL (8.5-10.5); Carbon Dioxide 31 mmol/L (22-29); Chloride 103 mmol/L (98-107); Globulin 2.4 g/dL (1.3-4.6); Glucose 102 mg/dL (65-115); Lipase 19 U/L (13-60); NT Pro B Type Natriuretic Pept 685 pg/mL (0-450); Osmolality Calculated 301 mOsm/kg (285-295); Sodium 143 mmol/L (136-145); Total Bilirubin 0.4 mg/dL (0.15-1.2); Total Protein 6.5 g/dL (6.6-8.7)
[2020-12-20 11:34] LABS: Anion Gap 13.5 (5-19); Potassium 4.5 mmol/L (3.5-5.1)
[2020-12-20 11:37] VITALS: BP 149/75; RESP 17; O2SAT 97
[2020-12-20 11:45] LABS: Add Urine Microscopic? NO; Bilirubin Urine Neg (Negative); Blood Urine Neg (Negative); Charge for UA Resulting for Rev; Glucose Urine UA Norm (Normal); Ketones Urine Negative (Negative); Leukocyte Esterase Urine Negative (Negative); Nitrate Urine Negative (Negative); Protein Urine Neg (Negative); Specific Gravity, Urine 1.025 (1.005-1.030); Urine Appearance Clear (CLEAR); Urine Color Yellow (Yellow); Urobilinogen Urine Norm (Negative); pH Urine 5 (5-7)
[2020-12-20 12:31] LABS: Troponin 5 2HR 18.85 ng/L (0-15)
[2020-12-20 12:33] LABS: Troponin 5 2HR Delta -2.15 ABS# (0-10)
[2020-12-20 12:36] VITALS: BP 127/71; O2SAT 97
[2020-12-20 13:05] VITALS: BP 127/71; PULSE 89; O2SAT 97
== END 2020-12-20 13:08 | disposition home or self-care (01) ==
PROVIDERS: Emergency Provider Family Medicine; PCP Nurse Practitioner
DX: K80.20 Calculus of gallbladder without cholecystitis without obstruction (principal); R09.02 Hypoxemia; J44.9 Chronic obstructive pulmonary disease, unspecified; Z79.82 Long term (current) use of aspirin; I10 Essential (primary) hypertension; Z87.891 Personal history of nicotine dependence; Z20.822 Contact with and (suspected) exposure to COVID-19
CPT/HCPCS: 36600; 71045; 74018; 76705; 80051; 80053; 81003; 82330; 82805; 83690; 83880; 84484; 85025; 87426; 87804; 93005; 96374; 96375; 99284; J1170; J2405

== ENCOUNTER 2020-12-27 07:07 | Outpatient (CLI) | payer MEDICARE, OTHER, SELFPAY ==
--- NOTE | 2020-12-27 07:18 | US_ITS ---
WS: [id number] ULTRASOUND ABDOMEN CLINICAL INFORMATION: K82.4 - Cholesterolosis of gallbladder COMPARISON: December 20, 2020 FINDINGS: Liver Size: Enlarged Craniocaudal length: 16.2 cm. Echogenicity: Coarse Surface nodularity: None. Mass (size and location): None. Bile ducts Intrahepatic ducts: Normal. Common bile duct diameter: 1.1 cm. Gallbladder Cholelithiasis Gallstones: Present Gallbladder sludge: Present Gallbladder wall thickening: None. Pericholecystic fluid: None. Sonographic Newton sign: Absent. Pancreas Normal as visualized. Right kidney: Normal. Hydronephrosis: None. Size: 11.5 cm x 5.9 cm x 5.3 cm Abdominal aorta and IVC Visualized portions are normal. Ascites: None. US/US liver [id number] IMPRESSION: 1. Diffuse fatty infiltration of the liver. 2. Cholelithiasis and gallbladder sludge. 3. Dilated common bile duct unchanged from previous. This can be further evalu ated with MRCP to assess for choledocholithiasis. 4. No hydronephrosis in right kidney.
--- NOTE | 2020-12-27 07:20 | ECG_ITS ---
[facility] Test Date: 2020-12-27 Pat Name: Rashid Bolivar Department: Room: Gender: Male Seam Finisher: : 1935 Requested By: Adali Lopez Order Number: [id number] Jean MD: Adali Lopez M.D. Interpretive Statements NAME OF STUDY: LEXISCAN SESTAMIBI STRESS TEST INDICATION: Dyspnea PROCEDURE: At the baseline, the blood pressure was 176/101 mmHg with a heart rate of 71 bpm. The electrocardiogram showed normal sinus rhythm, leftward axis. Right bundle branch block. Nonspecific ST depression. The Lexiscan was infused over a period of 20 seconds. A total of 0.4 milligrams of Lexiscan was infused. The stress phase was continued for a total of 5 minutes. Heart rate at the end of the stress phase was 77 bpm with a blood pressure of 182/103 mmHg. The EKG at the peak infusion revealed no significant ST-T wave changes. Sestamibi was injected 20 seconds after the Lexiscan infusion. Blood pressure at the end of the recovery phase was 177/100 mmHg with a heart rate of 76 beats per minute. CONCLUSION: 1. No significant EKG changes with the LexiScan infusion. 2. No LexiScan induced chest pain or cardiac arrhythmia. 3. Normal blood pressure and heart rate response. 4. Sestamibi/sestamibi perfusion scan pending; see separate report. Electronically Signed On 12-28-2020 13:10:35 CDT by Adali Lopez M.D. [id number]
--- NOTE | 2020-12-27 07:20 | NMCV_ITS ---
NM margie perf SPECT r/s* [id number] Rashid Bolivar Age: 85 Gender: M : 1935 Exam Date: 12/27/2020 08:19 Ordering Phys: Adali Lopez MD ([email or web address]) Technologist: DEZ Beauchamp Exam Location: [facility] Indications: DYSPNEA STRESS TEST Please see separate stress test report in [facility] for full findings IMAGE PROTOCOL Rest/Stress 1 Lexiscan Day Radiopharmaceutical Dose (mCi) Administration Site Administered by Rest: Tc-99m 10.5 IV DEZ Munoz Sestamibi Stress:Tc-99m 32.5 IV DEZ Munoz Sestamibi Rest: 27-Dec-2020 60 Discovery 630 Stress: 27-Dec-2020 30 Discovery 630 0.4mg Lexiscan. Supine position only as patient was unable to lay prone. SPECT RESULTS Technical Quality: Excellent Raw Data Analysis: Normal Image Corrections: No attenuation or motion correction applied Summed Stress Score: 1 Summed Rest Score: 0 Summed Difference Score: 1 PERFUSION FINDINGS Very small size perfusion abnormality of mild severity of apical lateral wall with subtle reversibility in apical lateral and apical anterior wall on stress images. FUNCTIONAL RESULTS (calculated via Gated SPECT) Stress Image LV EF (%): 46 Stress EDV (mL):116 TID: 1.01 Stress ESV (mL):63 FUNCTIONAL FINDINGS: The left ventricle is normal in size. Transient Ischemia Dilatation of 1. The left ventricular ejection fraction is mildly reduced reduced with a value of 46%. There is mildly decreased wall global thickening. IMPRESSIONS 1. Very small size perfusion abnormality of mild severity of apical lateral wall with subtle reversibility in apical lateral and apical anterior zaidi. 2. This may represent small area of ischemia in left anterior descending artery territory. 3. The left ventricular ejection fraction is mildly reduced reduced with a value of 46%. 4. EKG portion of the study will be reported separately. 5. No prior similar studies to compare. Adali Lopez MD (Electronically Signed) Final Date: 28 December 2020 13:23 S
[2020-12-27 07:34] VITALS: BMI 34.4
[2020-12-27] MEDS: regadenoson 0.4 Mg/5 ml Syringe IVP (08:53)
[2020-12-27 09:09] VITALS: BP 177/100; PULSE 79
== END 2020-12-27 07:08 | disposition home or self-care (01) ==
PROVIDERS: PCP Nurse Practitioner; Visit Provider Internal Medicine Cardiovascular Disease
DX: R06.00 Dyspnea, unspecified (principal); K82.4 Cholesterolosis of gallbladder; K76.0 Fatty (change of) liver, not elsewhere classified
CPT/HCPCS: 76705; 78452; 93017; A9500; J2785

== ENCOUNTER → 2021-01-03 12:15 | Outpatient (BNVA) | payer MEDICARE, OTHER, SELFPAY | PROVIDERS: PCP Nurse Practitioner; Visit Provider Surgery | DX: Z20.822 Contact with and (suspected) exposure to COVID-19 (principal); Z11.52 Encounter for screening for COVID-19 | CPT/HCPCS: 87635 ==

== ENCOUNTER 2021-01-10 07:27 | Day surgery (SDC) | payer MEDICARE, OTHER, SELFPAY ==
--- NOTE | 2021-01-03 11:07 | ANES.PREANE2 ---
Pre-Anesthetic Assessment Pre-Anesthetic Assessment: Height/Weight: Height 1.83 m Preop Diagnosis: gallstones Proposed Procedure: Operation Date: 01/10/21 10:25 Proposed Procedures p Laparoscopic Cholecystectomy 61105 K82.4(Not Applicable) - Masoud Sharma MD Familial anesthetic complications: none Social: Social History: No alcohol and No tobacco Comment: former smoker quit > 25years ago Exam: Pre-Anes Outpt Exam: alert, oriented x 3, clear to auscultation bilaterally and regular rate & rhythm Additional Exam Findings (including area of procedure): diminished Airway: Cervical ROM: WNL MP: 2 Dentition: False Additional comments: large neck circumference Pulmonary: Pulmonary: COPD and Sleep apnea Comments: Covid in April with subsequent pnuemonia and discharged on home oxygen, with persistent and chronic low O2 sats. Upper 80s to mid 90s. Now wears 2 L NC maybe a couple of times a week CV/HEM: CV/HEM: Arrythmia (NSVT), HTN and PVD Comments: Cleared by Dr. Lopez on 01/03 for surgery per patient and 12/27/20 perfusion scan IMPRESSIONS 1. Very small size perfusion abnormality of mild severity of apical lateral wall with subtle reversibility in apical lateral and apical anterior zaidi. 2. This may represent small area of ischemia in left anterior descending artery territory. 3. The left ventricular ejection fraction is mildly reduced reduced with a value of 46%. 4. EKG portion of the study will be reported separately. 5. No prior similar studies to compare. Holter 09/28/20 Conclusion: 1. Baseline rhythm is sinus rhythm with a heart rate of 70 bpm. Heart rate ranged from 55 to 95 bpm with average heart rate of 67 bpm. 2. 1 asymptomatic 18 beats long run of nonsustained ventricular tachycardia at 147 bpm on 05 October at 5:12 AM. 3. Patient symptom of tiredness or fatigue did not correlate with any arrhythmia. Metabolic: Metabolic: Thyroid Anesthetic Plan: ASA status: 4 Anesthesia: General Risk of > 500 ml blood loss (7ml/kg in children): No Other Pertinent Information: Labs in ER on 12/20 with no gross abnormalities, surgery next saturday. No need for repeat labs PFSH Anesthesia PFSH: Medical History Acute respiratory failure with hypoxia Adrenal insufficiency CHERI (acute kidney injury) Altered mental status COPD (chronic obstructive pulmonary disease) COVID-19 Elevated brain natriuretic peptide (BNP) level Elevated d-dimer Elevated lactic acid level Hypertension Hypothyroidism Hypoxia Oral thrush Peripheral arterial disease Recurrent syncope Sepsis Sepsis Thyroid disease Surgical History H/O brain surgery History of gastric surgery History of prostate surgery Family History Denies family history of Diabetes CAD (coronary artery disease) Clotting disorder Dementia Hyperlipidemia Psychiatric illness Chronic kidney disease (CKD) Suicide Anesthesia complication Bleeding disorder Family history of premature coronary artery disease Lung disease Cancer Hypertension Stroke Social History Smoking and tobacco status: former smoker Quit status (tobacco): has quit using tobacco Year quit tobacco: 1999 [id number] cig/pipe Second hand smoke exposure: No Smoking risk assessment/counseling performed?: Yes Alcohol intake: never Lives independently: Yes Household members: spouse Housing: House Marital status: service: No Current occupational status: retired Pets and animals: No History of recent travel: No Current gender identity: Male Data Anesthesia Cardiac Studies: Cardiac Event Monitor 09/28/20
[2021-01-03 11:10] VITALS: BMI 33.9
[2021-01-10] VITALS (11 sets, daily range): BP systolic 152–181; BP diastolic 59–90; PULSE 66–86; RESP 12–20; TEMP 36.1–36.5; O2SAT 91–99
--- NOTE | 2021-01-10 08:32 | P.HP_ITS ---
Same Day Surgery H&P Indication for Procedure/HPI DATE OF PROCEDURE: January 10, 2021 CHIEF COMPLAINT/INDICATIONFOR SURGICAL PROCEDURE: Gallbladder issue PREOP DIAGNOSIS: Symptomatic cholelithiasis PLANNED PROCEDRUE: Operation Date: 01/10/21 09:10 Proposed Procedures p Laparoscopic Cholecystectomy 16783 K82.4(Not Applicable) - Masoud Sharma MD This is a pleasant 85 years old gentleman with history of symptomatic cholelithiasis and hepatic steatosis. Patient has been worked up by cardiac services and he was counseled for laparoscopic cholecystectomy for elective approach today. Patient was placed on liquid protein diet per my recommendations and he had lost 9 pounds. To downsize the volume of the liver. ROS All systems have been reviewed negative except as per the above or per problem list Medications/Allergies* Home Medications Medication Instructions Recorded Confirmed Type lisinopril 5 mg tablet 5 mg PO DAILY@12 09/01/19 01/10/21 History aspirin 81 mg PO DAILY@06/11/20 01/10/21 History levothyroxine 112 mcg PO DAILY@06/11/20 01/10/21 History hydrocortisone See Rx Instructions .ROUTE .COMPLEX 09/09/20 01/10/21 History multivitamin 1 tab PO DAILY@69912/20/20 01/10/21 History pantoprazole [Protonix] 40 mg PO DAILY@69912/20/20 01/10/21 History Allergies/Adverse Reactions Allergy/AdvReac Type Severity Reaction Status Date / Time morphine Allergy Vomitting Verified 01/10/21 08:34 Pertinent History/Comorbid Conditions* Medical History (Updated 12/28/20 @ 00:01 by ) Acute respiratory failure with hypoxia Adrenal insufficiency CHERI (acute kidney injury) Altered mental status COPD (chronic obstructive pulmonary disease) COVID-19 Elevated brain natriuretic peptide (BNP) level Elevated d-dimer Elevated lactic acid level Hypertension Hypothyroidism Hypoxia Oral thrush Peripheral arterial disease Recurrent syncope Sepsis Sepsis Thyroid disease Surgical History (Updated 09/01/19 @ 09:34 by Edin Potts DPM) H/O brain surgery History of gastric surgery History of prostate surgery Family History (Updated 09/01/19 @ 08:54 by Patricia Carroll LPN) Denies family history of Diabetes CAD (coronary artery disease) Clotting disorder Dementia Hyperlipidemia Psychiatric illness Chronic kidney disease (CKD) Suicide Anesthesia complication Bleeding disorder Family history of premature coronary artery disease Lung disease Cancer Hypertension Stroke Social History Smoking and tobacco status: former smoker Quit status (tobacco): has quit using tobacco Year quit tobacco: 1999 [id number] cig/pipe Second hand smoke exposure: No Smoking risk assessment/counseling performed?: Yes Alcohol intake: never Lives independently: Yes Household members: spouse Housing: House Marital status: service: No Current occupational status: retired Pets and animals: No History of recent travel: No Current gender identity: Male Pertinent Exam Findings alert, oriented x 3, clear to auscultation bilaterally, regular rate & rhythm and procedure specific exam findings (Abdominal examination nontender nondistended soft, obese midline scar) Recommendations Surgery/Procedure today (Laparoscopic cholecystectomy possible open) Other Plans: Plan of care; After thorough history physical examination and reviewing the chart and images with my personal intrepreatation.I counseled the patient for laparoscopic cholecystectomy possible open, indications risks including but not limited injury to the common bile duct and/or other viscera,that may require potential future surgical interventions including but not limited to ERCP and or laparatomy that may include Hepatobiliary surgery.Benefits and alternatives all discussed with the patient, and patient did agree to proceed accordingly. All questions have been answered and all concerns have been addressed to patient's satisfaction. Rationale was carefully and clearly discussed with the patient.Appropriate informed consent have been reviewed and signed. Coding Level of Care Code Acute Marketing Services Vice President for Jose Rojas
[2021-01-10] MEDS: sodium chloride 0.9% 1,000 ML 30 ML IV (08:51)
--- NOTE | 2021-01-10 08:53 | P.ANESUD_ITS ---
Pre-Anesthetic Update Pre-Anesthetic Assessment: Date of Surgery/Procedure: 01/10/21 Preop Eda gnosis: Symptomatic cholelithiasis Proposed Procedure: Operation Date: 01/10/21 09:10 Proposed Procedures p Laparoscopic Cholecystectomy 23978 K82.4(Not Applicable) - Masoud Sharma MD Any changes to Pre-Anesthetic Assessment?: No Last Intake: Intake Last Liquid Date 01/10/21 Last Liquid Time 06:00 Last Solid Date 01/09/21 Last Solid Time 18:00 Vitals: Temperature 97.0 F L 01/10/21 08:05 Temperature Source Temporal Artery S can 01/10/21 08:05 Pulse Rate 66 01/10/21 08:05 Respiratory Rate 18 01/10/21 08:05 Blood Pressure 173/90 01/10/21 08:05 Blood Pressure Mya n 117 01/10/21 08:05 Pulse Oximetry 95 01/10/21 08:05 Oxygen Delivery Me thod 01/10/21 08:18 Exam: Pre-Anes Outpt Exam: alert, oriented x 3, clear to auscultation bilaterally and regular rate & rhythm Cardiac Studies: Cardiac Event Monitor 09/28/20
[2021-01-10] MEDS: acetaminophen 1,000 MG/100 ML PIGGYBACK 400 MG IV (08:55)
[2021-01-10] MEDS: heparin 5,000 unit/mL INJ 1 mL 3000 UNIT SUBCUT (08:55)
[2021-01-10] MEDS: ampicillin-sulbactam 3 GM in sodium chloride 0.9% (plus) 50 ML IV (08:57)
[2021-01-10] MEDS: lidocaine 2% INJ 20 mL INJECTION (09:29)
--- NOTE | 2021-01-10 10:24 | PM.OP ---
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 Procedure: Patient was identified in the holding area and taken back to the operative suite, placed in supine position intubated by anesthesia . Time-out was done verifying the patient's name/date of /planned procedure and destination after the procedure, all were in agreement. SCDs confirmed to be functioning, preoperative antibiotics administered per protocol, and beta isabel protocol was confirmed. Patient was appropriately secured to the table, footboard was applied to the OR table, before prep and drape anesthesia was asked to tilt the table back and forth to make sure that the patient is appropriately secured and she was. Prep and drape of the abdomen was done under the usual sterile technique, followed by right upper lateral skin incision, A 5 mm Optiview with a 5 mm 0 scope, was used to enter the abdominal cavity due to the patient's history of laparotomy with midline scar, uneventful entrance and gas was inflated. Noticed that the patient have extensive midline scar tissue and I elected at this point to go right paramedian to insert the Graham trocar under direct visualization and the balloon was inflated.There was no injury or bleeding of the underlying viscera or otherwise. I did switch the scope to A 10 mm laparoscope, 30? ,10 millimeter scope and under direct visualization an additional 5 millimeter trocar was inserted in the epigastric region followed by a 5 mm trocar right far lateral were inserted in the right upper quadrant that was done after injection of local lidocaine 2% at all incision sites. Gallbladder showed chronic calculus cholecystitis with extensive edema &with adhesions, hepatomegaly with liver cirrhosis and fatty liver component. Patient was then positioned in the head up and tilted to the left, the LigaSure device laparoscopic was used to take adhesions down safely. Ratcheted forceps were introduced into the lateral most 5mm port and was applied unto the fundus of the gallbladder cephalad and using 5 mm tenacula forceps onto the infundibulum of the gallbladder for better retraction Using [place] forceps then L-hook cautery to dissect the peritoneum overlying the Calot's triangle which was then opened medially and laterally until the cystic duct and the cystic artery were skeletonized. Also the suction irrigation tip was used for dissection bluntly, dissection was carried along the body of the gallbladder and after ensuring critical view of safety was identified. Cystic duct and cystic artery where seen connected to the gallbladder. Clips were applied on the cystic duct towards the common bile duct 1 towards the gallbladder then divided is in sharp scissors, 3 clips were then applied onto the cystic artery and 1 towards the gallbladder and divided by sharp scissors. Additional clip was applied on a traversing vessel. Dissection was then carried along of the gallbladder from the gallbladder fossa using cautery as well as sharp dissection with heat energy, inadvertent opening of the gallbladder was done without losing any of the stones in the abdominal cavity. The gallbladder then was dissected out from the gallbladder fossa totally , cholecystectomy was then achieved and was placed in an Endo Catch bag and then retrieved from the Graham trocar site under direct visualization using a 5 mm 30? scope through the epigastric trocar, specimen was then passed to the circulating nurse to go for permanent pathology,irrigation and hemostasis was done to the gallbladder fossa after hemostasis was secured and additional pieces of Surgicel were applied to the gallbladder fossa, final survey laparoscopy was done that showed no injuries. Suction irrigation was obtained The right paramedian fascial defect was then closed using interrupted #1 PDS sutures using a fascial closure device ;Daniel Olvera under direct visualization. Gas was allowed to deflate,Trocars were then taken out under direct vision there was no evidence of bleeding Specimen was passed to the circulating nurse for permanent pathology. No drains were placed and the supraumbilical incision as well as all trocar sites were closed by by 4-0 Monocryl to approximate the skin edges of the supraumbilical incision, dressing was applied in the form of surgical glue and the patient patient got extubated and was taken to recovery area in a stable condition. Count of sponges, needles and instruments were completed at the end of the procedure I was present for the whole entire procedure.
--- NOTE | 2021-01-10 15:40 | ANE.PACU2 ---
Inpatient post-anesthesia follow up: Airway intact: Yes Vital signs: Temperature 97.6 F Pulse Rate 76 Respiratory Rate 12 Blood Pressure 172/90 Pulse Oximetry 91 Oxygen Delivery Me thod Room Air Oxygen Flow Rate 8 Fraction of Inspir ed Oxygen Hydration adequate: Yes Nausea and vomiting: No Pain level: 2 Mental status: Baseline
== END 2021-01-10 13:20 | disposition home or self-care (01) ==
PROVIDERS: PCP Nurse Practitioner; Visit Provider Surgery
PROC: 0FT44ZZ Resection of Gallbladder, Percutaneous Endoscopic Approach (ICD-10-PCS; CPT 47562; principal; 2021-01-10 09:00)
DX: K80.10 Calculus of gallbladder with chronic cholecystitis without obstruction (principal); Z87.891 Personal history of nicotine dependence; J44.9 Chronic obstructive pulmonary disease, unspecified; G47.33 Obstructive sleep apnea (adult) (pediatric); Z86.16 Personal history of COVID-19; Z99.81 Dependence on supplemental oxygen; I10 Essential (primary) hypertension; E03.9 Hypothyroidism, unspecified; Z98.84 Bariatric surgery status
CPT/HCPCS: 47562; 88304; J0295; J1100; J1644; J2250; J2405; J2704; J2710; J3010; J3490; J7030

== ENCOUNTER 2021-02-20 06:07 | Inpatient (IN) | payer MEDICARE, OTHER, SELFPAY ==
[2021-02-20] VITALS (26 sets, daily range): BP systolic 76–246; BP diastolic 44–123; PULSE 87–115; RESP 14–31; TEMP 36.9–39.7; O2SAT 88–98; BMI 33.9
--- NOTE | 2021-02-20 06:39 | XRR_ITS ---
PROCEDURE INFORMATION: Exam: XR Chest Exam date and time: 02/20/2021 6:39 AM Age: 85 years old Clinical indication: Dyspnea/cough TECHNIQUE: Imaging protocol: XR of the chest. Views: 1 view. COMPARISON: 1. CR XR chest 1V portable [id number] 12/20/2020 8:[address] chest abd pel wo con 09/09/2020 6:27:07 PM FINDINGS: Lungs: Poor inspiration. Decreased lung volumes. There is silhouetting out of the left hemidiaphragm. This can be due to left basilar consolidation and a left pleural effusion. Pleural spaces: Small left pleural effusion. No right pleural effusion noted. No pneumothorax. Heart/Mediastinum: The cardiac silhouette is not enlarged. The mediastinal contours are within normal limits. Vasculature: The aorta is atherosclerotic. Bones/joints: No acute osseous abnormality. XR/XR chest 1V portable [id number] IMPRESSION: 1. Left basilar airspace disease, potentially pneumonia or atelectasis. 2. Small left pleural effusion.
--- NOTE | 2021-02-20 06:48 | CTR_ITS ---
PROCEDURE INFORMATION: Exam: CT Abdomen And Pelvis With Contrast Exam date and time: 02/20/2021 6:48 AM Age: 85 years old Clinical indication: Abdominal pain; Prior surgery; Additional info: Abd pain TECHNIQUE: Imaging protocol: Computed tomography of the abdomen and pelvis with contrast. Radiation optimization: All CT scans at this facility use at least one of these dose optimization techniques: automated exposure control; mA and/or kV adjustment per patient size (includes targeted exams where dose is matched to clinical indication); or iterative reconstruction. Contrast material: VISI; Contrast volume: 95 ml; Contrast route: INTRAVENOUS (IV); COMPARISON: 1. CT abdomen pelvis w con* [id number] 12/01/2020 12:[address] chest abd pel wo con 09/09/2020 6:27:07 PM RADIATION DOSE METRICS: Total DLP (mGy-cm): 2105.26 FINDINGS: Lungs: A 17.5 mm noncalcified pulmonary nodule is noted in the anterolateral basilar segment of the left lower lobe (LOC -6), previously 16.6 mm. Liver: There is a nodular contour to the liver and hypertrophy of the left lobe lateral segment and caudate lobe, consistent with hepatic cirrhosis. Gallbladder and bile ducts: A small amount of ectopic gas is present in the gallbladder fossa. The extrahepatic bile ducts are dilated, measuring 6 mm. The gallbladder is surgically absent, with metallic clips in the gallbladder fossa. Pancreas: Severe pancreatic atrophy. Spleen: Normal. No splenomegaly. Adrenal glands: Normal. No mass. Kidneys and ureters: Right renal benign cysts, largest 3.2 cm. Left renal benign parapelvic cyst measuring 3.0 cm. Stomach and bowel: Sigmoid, descending and transverse colonic diverticula are present without evidence of diverticulitis. Appendix: 3.5 mm appendicolith without evidence of appendicitis. Intraperitoneal space: No free air. No significant fluid collection. Vasculature: Moderate aortic atherosclerotic calcification without aneurysm. The iliac arteries show moderate bilateral atherosclerotic calcifications without evidence of aneurysm. Lymph nodes: No enlarged lymph nodes. Urinary bladder: Unremarkable as visualized. Reproductive: The prostate gland demonstrates nonspecific parenchymal calcification. Bones/joints: Degenerative disc disease at mid lumbar spine disk levels, with mild levoscoliosis. Superior L3 vertebral body endplate chronic herniation. Mild chronic L1 vertebral body compression deformity, stable. Soft tissues: Unremarkable. Other findings: Streak artifact is present from the patient's arms at the side. CT/CT abdomen pelvis w con* [id number] IMPRESSION: 1. A small amount of ectopic gas is present in the gallbladder fossa. Interval cholecystectomy. Recommend correlation with the date of prior procedure (less than 1 week?). 2. Mild interval enlargement of noncalcified left lower lobe pulmonary nodule. Biopsy or PET/CT recommended. Fleischner Society recommendations not given due to the interval change. 3. Hepatic cirrhosis. 4. Prior cholecystectomy. 5. Right renal benign cysts. No follow-up imaging is recommended. 6. Left renal benign parapelvic cyst. No follow-up imaging is recommended. 7. Diverticulosis. 8. Appendicolith without evidence of appendicitis. 9. Chronic calcific prostatitis. COMMENTS: Consistent with the [place] [employer]'s Incidental Findings Committee white paper (J Am Aida Radiol 2018): Any incidental renal lesion less than 1 cm or classified as too small to characterize, or any incidental cystic renal lesion characterized as simple-appearing, is likely benign. No follow-up imaging is recommended for these lesions per consensus recommendations based on imaging criteria. Radiation Dose CTDIVOL = (mGy): DLP = 2105.26 (mGy-cm)
--- NOTE | 2021-02-20 06:50 | ECG_ITS ---
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: : 1935 Requested By: Willis Sabillon Order Number: [id number] Reading MD: KRISTINE CHRISTINA Measurements Intervals [place] Rate: 136 P: 62 OK: 188 QRS: 120 QRSD: 102 T: 59 QT: 378 QTc: 569 Interpretive Statements SINUS TACHYCARDIA POSSIBLE RIGHT VENTRICULAR HYPERTROPHY [SOME/ALL OF: PROMINENT R IN V1, LATE TRANSITION, RAD, DARRON, SSS] MODERATE ST DEPRESSION [0.05+ mV ST DEPRESSION] Compared to ECG 12/20/2020 08:38:17 ST (T wave) deviation now present Sinus rhythm no longer present Ventricular premature complex(es) no longer present Electronically Signed On 02-20-2021 18:29:56 CDT by KRISTINE CHRISTINA [email or web address]
--- NOTE | 2021-02-20 06:53 | ED_ITS ---
HPI - Fever General: Chief Complaint: ER Hold Stated Complaint: FALL Time Seen by Provider: 02/20/21 06:26 History of Present Illness: HPI Narrative: 85-year-old male presents emergency room via EMS. He fell out of bed this morning no reported injury. He has had a fever he has been more lethargic the last few days he is postop laparoscopic cholecystectomy approximately 1 month. Does not really answer much for questions. No reports of respiratory symptoms he has been vaccinated for Covid x2. He has no known previous history of Covid. He denies any chest or abdominal pain shortness of breath or cough to me. MD elicited complaint: fever Onset (ago): hour(s) Context: recent procedure and recent hospitalization Exacerbating factors: nothing Relieving factors: nothing Associated symptoms: Reports abdominal pain, chills and confusion; Deny flank pain, chest pain, cough, diarrhea, dysuria, extremity pain, headache(s), myalgias, nasal congestion, nausea, night sweats, rash, rhinorrhea, short of breath, sinus pain, stiffness, sore throat, vomiting or weight loss Treatments prior to arrival fever: none Review of Systems Const: Reports: chills; Denies: night sweats ENMT: Denies: nasal congestion or sinus pain Card: Denies: chest pain Resp: Denies: dyspnea, productive cough or non-productive cough GI: Reports: abdominal pain; Denies: nausea, vomiting or diarrhea : Denies: flank pain or dysuria Musc: Denies: extremity pain Skin/Breast: Denies: rash or pruritus Neuro: Reports: confusion; Denies: headache(s) PFSH ED PFSH: Medical History Acute respiratory failure with hypoxia Adrenal insufficiency CHERI (acute kidney injury) Altered mental status COPD (chronic obstructive pulmonary disease) COVID-19 Elevated brain natriuretic peptide (BNP) level Elevated d-dimer Elevated lactic acid level Gallbladder polyp Hypertension Hypothyroidism Hypoxia Oral thrush Peripheral arterial disease Recurrent syncope Sepsis Sepsis Thyroid disease Surgical History H/O brain surgery History of gastric surgery History of prostate surgery Family History Denies family history of Diabetes CAD (coronary artery disease) Clotting disorder Dementia Hyperlipidemia Psychiatric illness Chronic kidney disease (CKD) Suicide Anesthesia complication Bleeding disorder Family history of premature coronary artery disease Lung disease Cancer Hypertension Stroke Social History Quit status (tobacco): has quit using tobacco Year quit tobacco: 1999 [id number] cig/pipe Second hand smoke exposure: No Smoking risk assessment/counseling performed?: Yes Alcohol intake: never Lives independently: Yes Household members: spouse Housing: House Marital status: service: No Current occupational status: retired Pets and animals: No History of recent travel: No Current gender identity: Male Physical Exam HENMT: COMMON NORMALS: normocephalic HEAD & SCALP: normocephalic Neck/C-Spine: COMMON NORMALS: no JVD Resp: COMMON NORMALS: normal respiratory effort, No retractions, No use of accessory muscles and clear to auscultation bilaterally AUSCULTATION: clear to auscultation bilaterally Cardio: COMMON NORMALS: no JVD, regular rate, regular rhythm and No murmurs present (Cardio) RATE: regular rate RHYTHM: regular rhythm GI: COMMON NORMALS: No hepatosplenomegaly present AUSCULTATION: Yes normoactive bowel sounds PALPATION: Yes Tenderness to palpation present (GI) (difuse), No Guarding due to palpation present (GI) and Yes No hepatosplenomegaly present Extremity: COMMON NORMALS: normal to inspection, capillary refill normal, no clubbing, cyanosis or edema, no calf tenderness and no pedal edema Skin: COMMON NORMALS: no rashes or lesions noted GENERAL SKIN EXAM: no rashes or lesions noted Course Vital Signs: Vital signs: Vital Signs Temperature 103.5 F H 02/20/21 06:28 Pulse Rate 114 H 02/20/21 09:58 Respiratory Rate 24 H 02/20/21 09:58 Blood Pressure 111/55 02/20/21 09:58 Pulse Oximetry 96 02/20/21 09:58 MDM - Fever MDM Narrative: Medical decision making narrative: Initially blood pressure elevated. Patient given hydralazine blood pressure improved and then after a while blood pressure began to decrease dropped into the 70s and 80s patient started on Levophed he is already been started on Zosyn we will add vancomycin his white count is normal but his lactate is elevated. CT reported as having air in the gallbladder fossa however he is 5 weeks out additionally his liver enzymes are normal chest x-ray shows pneumonia discussed with hospitalist orders written admit to the ICU. Lab Data: Labs: Lab Results 02/20/21 02/20/21 02/20/21 Range/Units 06:42 06:42 06:42 WBC 5.8 (4.0-10.0) 10^3/ uL RBC 5.29 (4.1-5.3) 10^6/u L Hgb 16.2 (11.7-16.6) g/dL Hct 49.2 (42.0-52.0) % MCV 93.0 (80-94) fl MCH 30.6 (28.0-34.0) pg MCHC 32.9 (30.0-36.0) g/dL RDW 13.2 (12.1-15.1) % Plt Count 147 (130-400) 10^3/c mm MPV 9.6 (7.4-10.4) fL Neut % (Auto) 84.1 % Lymph % (Auto) 9.2 % Stokes % (Auto) 5.9 % Eos % (Auto) 0.0 % Baso % (Auto) 0.3 % Neut # (Auto) 4.85 (1.8-7.7) 10^3/u L Lymph # (Auto) 0.5 L (0.8-4.8) 10^3/u L Stokes # (Auto) 0.3 (0.2-0.9) 10^3/u L Eos # (Auto) 0.0 (0.0-0.8) 10^3/u L Baso # (Auto) 0.0 (0.0-0.1) 10^3/u L Nucleated RBC % (a uto) 0 % Nucleated RBCs # 0.0 /100WBC Specimen Type Sample Site ABG pH (7.35-7.45) ABG pCO2 (35-45) mmHg ABG pO2 (80.0-100.0) mmH g ABG HCO3 (22-26) mmol/L ABG O2 Saturation ABG Base Excess (-2.0-2.0) mmol/ L Neeraj Test A-a O2 Gradient (5-10) mmHg Hematocrit (42-52) % Hgb O2 Saturation (95-100) % Carboxyhemoglobin (0.4-20.1) %THgb Methemoglobin (0.4-1.5) % Total Hemoglobin (14-18) g/dL Ionized Calcium (1.1-1.4) mmol/L O2 Delivery Device O2 Liters/Min % FiO2 % Flight Operation Coordinator ID Sodium 139 (136-145) mmol/L Potassium 3.8 (3.5-5.1) mmol/L Chloride 97 L (98-107) mmol/L Carbon Dioxide 27 (22-29) mmol/L Anion Gap 18.8 (5-19) BUN 15 (8-23) mg/dL Creatinine 1.1 (0.7-1.2) mg/dL GFR Calculation Not Reportable Glucose 150 H (65-115) mg/dL Calculated Osmolal ity 292 (285-295) mOsm/k g Lactic Acid 2.7 H (0.5-2.2) mmol/L Calcium 9.3 (8.5-10.5) mg/dL Total Bilirubin 0.9 (0.15-1.2) mg/dL AST 37 (0-40) U/L ALT 30 (0-41) U/L Alkaline Phosphata se 55 (40-130) IU/L Creatine Kinase 62 (39-308) U/L Troponin T Baselin e (0-15) ng/L Total Protein 8.1 (6.6-8.7) g/dL Albumin 4.3 (3.5-5.2) g/dL Globulin 3.8 (1.3-4.6) g/dL Lipase 16 (13-60) U/L Random Cortisol (2.47-19.5) ug/d L Urine Color (Yellow) Urine Appearance (CLEAR) Urine pH (5-7) Ur Specific Gravit y (1.005-1.030) Urine Protein (Negative) Urine Glucose (UA) (Normal) Urine Ketones (Negative) Urine Blood (Negative) Urine Nitrate (Negative) Urine Bilirubin (Negative) Urine Urobilinogen (Negative) mg/dL Ur Leukocyte Kim ase (Negative) SARS-CoV-2 Ag (Rap id) (Negative) 02/20/21 02/20/21 02/20/21 Range/Units 06:42 06:42 07:14 WBC (4.0-10.0) 10^3/ uL RBC (4.1-5.3) 10^6/u L Hgb (11.7-16.6) g/dL Hct (42.0-52.0) % MCV (80-94) fl MCH (28.0-34.0) pg MCHC (30.0-36.0) g/dL RDW (12.1-15.1) % Plt Count (130-400) 10^3/c mm MPV (7.4-10.4) fL Neut % (Auto) % Lymph % (Auto) % Stokes % (Auto) % Eos % (Auto) % Baso % (Auto) % Neut # (Auto) (1.8-7.7) 10^3/u L Lymph # (Auto) (0.8-4.8) 10^3/u L Stokes # (Auto) (0.2-0.9) 10^3/u L Eos # (Auto) (0.0-0.8) 10^3/u L Baso # (Auto) (0.0-0.1) 10^3/u L Nucleated RBC % (a uto) % Nucleated RBCs # /100WBC Specimen Type Arterial Sample Site Radial, left ABG pH 7.43 (7.35-7.45) ABG pCO2 41.1 (35-45) mmHg ABG pO2 57.7 L (80.0-100.0) mmH g ABG HCO3 27.1 H (22-26) mmol/L ABG O2 Saturation 91.5 ABG Base Excess 2.4 H (-2.0-2.0) mmol/ L Neeraj Test Pos A-a O2 Gradient 19.4 H (5-10) mmHg Hematocrit 48.4 (42-52) % Hgb O2 Saturation 90.2 L (95-100) % Carboxyhemoglobin 0.7 (0.4-20.1) %THgb Methemoglobin 0.7 (0.4-1.5) % Total Hemoglobin 15.8 (14-18) g/dL Ionized Calcium 1.2 (1.1-1.4) mmol/L O2 Delivery Device Nc O2 Liters/Min 4.0 % FiO2 36.0 % Flight Operation Coordinator ID Cak Sodium 141.0 (136-145) mmol/L Potassium 3.5 (3.5-5.1) mmol/L Chloride (98-107) mmol/L Carbon Dioxide (22-29) mmol/L Anion Gap (5-19) BUN (8-23) mg/dL Creatinine (0.7-1.2) mg/dL GFR Calculation Glucose 152.0 H (65-115) mg/dL Calculated Osmolal ity (285-295) mOsm/k g Lactic Acid (0.5-2.2) mmol/L Calcium (8.5-10.5) mg/dL Total Bilirubin (0.15-1.2) mg/dL AST (0-40) U/L ALT (0-41) U/L Alkaline Phosphata se (40-130) IU/L Creatine Kinase (39-308) U/L Troponin T Baselin e 32 H (0-15) ng/L Total Protein (6.6-8.7) g/dL Albumin (3.5-5.2) g/dL Globulin (1.3-4.6) g/dL Lipase (13-60) U/L Random Cortisol 8.36 (2.47-19.5) ug/d L Urine Color (Yellow) Urine Appearance (CLEAR) Urine pH (5-7) Ur Specific Gravit y (1.005-1.030) Urine Protein (Negative) Urine Glucose (UA) (Normal) Urine Ketones (Negative) Urine Blood (Negative) Urine Nitrate (Negative) Urine Bilirubin (Negative) Urine Urobilinogen (Negative) mg/dL Ur Leukocyte Kim ase (Negative) SARS-CoV-2 Ag (Rap id) (Negative) 02/20/21 02/20/21 Range/Units 09:16 09:17 WBC (4.0-10.0) 10^3/ uL RBC (4.1-5.3) 10^6/u L Hgb (11.7-16.6) g/dL Hct (42.0-52.0) % MCV (80-94) fl MCH (28.0-34.0) pg MCHC (30.0-36.0) g/dL RDW (12.1-15.1) % Plt Count (130-400) 10^3/c mm MPV (7.4-10.4) fL Neut % (Auto) % Lymph % (Auto) % Stokes % (Auto) % Eos % (Auto) % Baso % (Auto) % Neut # (Auto) (1.8-7.7) 10^3/u L Lymph # (Auto) (0.8-4.8) 10^3/u L Stokes # (Auto) (0.2-0.9) 10^3/u L Eos # (Auto) (0.0-0.8) 10^3/u L Baso # (Auto) (0.0-0.1) 10^3/u L Nucleated RBC % (a uto) % Nucleated RBCs # /100WBC Specimen Type Sample Site ABG pH (7.35-7.45) ABG pCO2 (35-45) mmHg ABG pO2 (80.0-100.0) mmH g ABG HCO3 (22-26) mmol/L ABG O2 Saturation ABG Base Excess (-2.0-2.0) mmol/ L Neeraj Test A-a O2 Gradient (5-10) mmHg Hematocrit (42-52) % Hgb O2 Saturation (95-100) % Carboxyhemoglobin (0.4-20.1) %THgb Methemoglobin (0.4-1.5) % Total Hemoglobin (14-18) g/dL Ionized Calcium (1.1-1.4) mmol/L O2 Delivery Device O2 Liters/Min % FiO2 % Flight Operation Coordinator ID Sodium (136-145) mmol/L Potassium (3.5-5.1) mmol/L Chloride (98-107) mmol/L Carbon Dioxide (22-29) mmol/L Anion Gap (5-19) BUN (8-23) mg/dL Creatinine (0.7-1.2) mg/dL GFR Calculation Glucose (65-115) mg/dL Calculated Osmolal ity (285-295) mOsm/k g Lactic Acid (0.5-2.2) mmol/L Calcium (8.5-10.5) mg/dL Total Bilirubin (0.15-1.2) mg/dL AST (0-40) U/L ALT (0-41) U/L Alkaline Phosphata se (40-130) IU/L Creatine Kinase (39-308) U/L Troponin T Baselin e (0-15) ng/L Total Protein (6.6-8.7) g/dL Albumin (3.5-5.2) g/dL Globulin (1.3-4.6) g/dL Lipase (13-60) U/L Random Cortisol (2.47-19.5) ug/d L Urine Color Yellow (Yellow) Urine Appearance Clear (CLEAR) Urine pH 6.5 (5-7) Ur Specific Gravit y 1.010 (1.005-1.030) Urine Protein Neg (Negative) Urine Glucose (UA) Norm (Normal) Urine Ketones Negative (Negative) Urine Blood Neg (Negative) Urine Nitrate Negative (Negative) Urine Bilirubin Neg (Negative) Urine Urobilinogen Norm (Negative) mg/dL Ur Leukocyte Kim ase Negative (Negative) SARS-CoV-2 Ag (Rap id) Negative (Negative) Discharge Plan Discharge Patient Disposition: Admitted As Inpatient Admit Provider: Macario Cortez Clinical Impression: Pneumonia Condition: Stable Discharge Diet: Usual diet Coding Level of Care Code ED Braiding Machine Operator for Sjg Fwd Exam Detailed
[2021-02-20 06:54] LABS: Basophils % 0.3 %; Hematocrit 49.2 % (42.0-52.0); Hemoglobin 16.2 g/dL (11.7-16.6); Lymphocytes # 0.5 10^3/uL (0.8-4.8); Lymphocytes % 9.2 %; Mean Corpuscular HGB Conc 32.9 g/dL (30.0-36.0); Mean Corpuscular Hemoglobin 30.6 pg (28.0-34.0); Mean Platelet Volume 9.6 fL (7.4-10.4); Monocytes # 0.3 10^3/uL (0.2-0.9); Monocytes % 5.9 %; Neutrophils # 4.85 10^3/uL (1.8-7.7); Neutrophils % 84.1 %; Nucleated Red Blood Cells % 0 %; Platelet Count 147 10^3/cmm (130-400); Red Blood Count 5.29 10^6/uL (4.1-5.3); Red Cell Distribution Width 13.2 % (12.1-15.1); White Blood Count 5.8 10^3/uL (4.0-10.0)
[2021-02-20] MEDS: hyDRALAzine 20 mg/mL INJ 1 mL IVP (06:58)
[2021-02-20] MEDS: ondansetron 2 mg/ML SDV 2 mL 4 MG IVP (06:58)
[2021-02-20] MEDS: piperacillin-tazobactam 3.375 GM in sodium chloride 0.9% (plus) 50 ML IV (07:04)
[2021-02-20 07:16] LABS: Alanine Aminotransferase 30 U/L (0-41); Albumin Level 4.3 g/dL (3.5-5.2); Alkaline Phosphatase 55 IU/L (40-130); Anion Gap 18.8 (5-19); Aspartate Amino Transferase 37 U/L (0-40); Blood Urea Nitrogen 15 mg/dL (8-23); Calcium 9.3 mg/dL (8.5-10.5); Carbon Dioxide 27 mmol/L (22-29); Chloride 97 mmol/L (98-107); Creatine Phosphokinase 62 U/L (39-308); Globulin 3.8 g/dL (1.3-4.6); Glucose 150 mg/dL (65-115); Lactic Sepsis W/Reflex 2.7 mmol/L (0.5-2.2); Lipase 16 U/L (13-60); Osmolality Calculated 292 mOsm/kg (285-295); Potassium 3.8 mmol/L (3.5-5.1); Sodium 139 mmol/L (136-145); Total Bilirubin 0.9 mg/dL (0.15-1.2); Total Protein 8.1 g/dL (6.6-8.7)
[2021-02-20 07:26] LABS: ABG PCO2 41.1 mmHg (35-45); ABG PH Result 7.43 (7.35-7.45); Alveolar-Arterial Oxygen Gradi 19.4 mmHg (5-10); Arterial Blood Gas Hematocrit 48.4 % (42-52); Base Excess ABG 2.4 mmol/L (-2.0-2.0); Blood Gas Allen Test Pos; Blood Gas Operator Identificat CAK; Blood Gas Sample Site Radial, left; Blood Gas Sample Type Arterial; Carboxyhemoglobin 0.7 %THgb (0.4-20.1); HCO3 ABG 27.1 mmol/L (22-26); HGB O2 Sat 90.2 % (95-100); Ionized Calcium Level - ABG 1.2 mmol/L (1.1-1.4); Methemoglobin 0.7 % (0.4-1.5); Oxygen Device NC; Oxygen Saturation ABG 91.5; PO2 ABG 57.7 mmHg (80.0-100.0); Potassium Level - ABG 3.5 mmol/L (3.5-5.0); Total Hemoglobin 15.8 g/dL (14-18)
--- NOTE | 2021-02-20 07:30 | PC.NURSE ---
This RN walked by and noticed patient hanging off the end of his bed. This RN went into patient room assisted patient back into the bed. Patient continued to move around the bed trying to get. This RN educated patient he needed to stay in bed put patient continued to try to get up. Physician notified. Orders given for 1 mg ativan IM. IV was pulled out at this new time. New IV will be obtained.
[2021-02-20 07:40] LABS: Cortisol Random 8.36 ug/dL (2.47-19.5)
--- NOTE | 2021-02-20 07:42 | CTR_ITS ---
PROCEDURE INFORMATION: Exam: CT Head Without Contrast Exam date and time: 02/20/2021 7:42 AM Age: 85 years old Clinical indication: Altered mental status/memory loss; Additional info: AMS TECHNIQUE: Imaging protocol: Computed tomography of the head without contrast. Radiation optimization: All CT scans at this facility use at least one of these dose optimization techniques: automated exposure control; mA and/or kV adjustment per patient size (includes targeted exams where dose is matched to clinical indication); or iterative reconstruction. COMPARISON: CT HEAD 09/09/2020 3:47 AM RADIATION DOSE METRICS: Total DLP (mGy-cm): 1775.35 FINDINGS: Brain: No acute appearing brain parenchymal abnormality. No intracranial hemorrhage. No extraaxial fluid collections. There is diffuse cerebral atrophy. There are white matter low attenuation changes potentially related to chronic small vessel disease. Cerebral ventricles: No hydrocephalus when allowing for the atrophy. Paranasal sinuses: Multifocal mucoperiosteal thickening. Mastoid air cells: The mastoid air cells are aerated. Bones/joints: No calvarial fracture. Soft tissues: No acute soft tissue abnormality. CT/CT head wo con* [id number] IMPRESSION: No acute intracranial abnormality. Radiation Dose CTDIVOL = (mGy): DLP = 1775.35 (mGy-cm)
[2021-02-20] MEDS: LORazepam 2 mg/mL INJ 1 mL 1 MG IM (08:25)
[2021-02-20 08:33] LABS: Troponin(5th) Baseline 32 ng/L (0-15)
[2021-02-20] MEDS: iodixanol 320 mg/mL 100mL Btl IV ×2 (08:38→09:57)
[2021-02-20 08:39] LABS: Reflex Lactate Order REFLEX LACTIC ORDERD
[2021-02-20] MEDS: acetaminophen 1,000 MG/100 ML PIGGYBACK 400 MG IV (09:00)
[2021-02-20] MEDS: sodium chloride 0.9% 1,000 ML 999 ML IV (09:25)
[2021-02-20 09:29] LABS: Add Urine Microscopic? NO; Charge for UA Resulting for Rev
--- NOTE | 2021-02-20 09:33 | CTR_ITS ---
PROCEDURE INFORMATION: Exam: CTA Chest With Contrast Exam date and time: 02/20/2021 9:33 AM Age: 85 years old Clinical indication: Shortness of breath; Additional info: Hypoxia TECHNIQUE: Imaging protocol: Computed tomographic angiography of the chest with contrast. 3D rendering (Not supervised by radiologist): MIP reconstructed images were created by the technologist. Radiation optimization: All CT scans at this facility use at least one of these dose optimization techniques: automated exposure control; mA and/or kV adjustment per patient size (includes targeted exams where dose is matched to clinical indication); or iterative reconstruction. Contrast material: VISI; Contrast volume: 75 ml; Contrast route: INTRAVENOUS (IV); COMPARISON: CT angio chest PE protcl [id number] 06/11/2020 7:45 AM RADIATION DOSE METRICS: Total DLP (mGy-cm): 551.95 FINDINGS: Pulmonary arteries: No pulmonary artery embolism identified. The main and bilateral pulmonary arteries are enlarged with peripheral tapering. Aorta: Moderate aortic arch, branch, and descending thoracic aortic atherosclerotic calcification without ectasia. Thyroid: Absent left thyroid lobe. Unremarkable right thyroid lobe. Lungs: 19.8 mm left lower lobe anterolateral basilar segment noncalcified pulmonary nodule, previously approximately 16 mm,; Mild partial atelectasis of the inferior right upper lobe anterior segment, anterior right lower lobe superior segment and bilateral posterior lung bases. Subsegmental atelectasis inferior segment of lingula. Pleural spaces: No pneumothorax. No pleural effusion. Heart: Right atrial/left atrial ratio 1.32. Mitral annular calcification is present. Left main, LAD, LCx and RCA calcified coronary atherosclerosis. Mediastinal space: Left hilar granulomatous keith calcifications are present. Lymph nodes: Right pulmonary hilar lymph nodes, largest 11.3 mm short axis. Diaphragm: The right hemidiaphragm is moderately elevated. Bones/joints: Unremarkable. No acute fracture. Soft tissues: Unremarkable. CT/CT angio chest PE protcl [id number] IMPRESSION: 1. No pulmonary artery embolism identified. 2. Mild interval enlargement of noncalcified left lower lobe pulmonary nodule. Biopsy or PET/CT recommended. Fleischner Society recommendations not given due to the interval change. 3. Possible pulmonary arterial hypertension. Clinical correlation is recommended. 4. Bilateral pulmonary atelectasis as described. 5. Coronary atherosclerosis. 6 Please see the abdomen/pelvis CT report of the same date for additional findings. Radiation Dose CTDIVOL = (mGy): DLP = 551.95 (mGy-cm)
[2021-02-20 09:38] LABS: Bilirubin Urine Neg (Negative); Blood Urine Neg (Negative); Glucose Urine UA Norm (Normal); Ketones Urine Negative (Negative); Leukocyte Esterase Urine Negative (Negative); Nitrate Urine Negative (Negative); Protein Urine Neg (Negative); Urine Appearance Clear (CLEAR); Urine Color Yellow (Yellow); Urobilinogen Urine Norm (Negative); pH Urine 6.5 (5-7)
[2021-02-20 09:47] LABS: SARS Covid-2 Antigen Negative (Negative)
--- NOTE | 2021-02-20 09:56 | PC.NURSE ---
Per physician patient can be took off COVID precautions at this time.
[2021-02-20 10:11] LABS: ABG PCO2 51.4 mmHg (35-45); ABG PH Result 7.34 (7.35-7.45); Arterial Blood Gas Hematocrit 44.5 % (42-52); Base Excess ABG 1.1 mmol/L (-2.0-2.0); Blood Gas Allen Test Pos; Blood Gas Operator Identificat CAK; Blood Gas Sample Site Radial, left; Blood Gas Sample Type Arterial; Carboxyhemoglobin 0.4 %THgb (0.4-20.1); HCO3 ABG 27.8 mmol/L (22-26); HGB O2 Sat 97.5 % (95-100); Ionized Calcium Level - ABG 1.1 mmol/L (1.1-1.4); Methemoglobin 0.7 % (0.4-1.5); Oxygen Device NRB; Oxygen Saturation ABG 98.5; Total Hemoglobin 14.5 g/dL (14-18)
[2021-02-20] MEDS: levofloxacin-dextrose 5 % 750 MG/150 ML PREMIX 100 MG IV (10:16)
--- NOTE | 2021-02-20 10:22 | PC.PHAR ---
pts efren verified pts medications
--- NOTE | 2021-02-20 11:07 | USR_ITS ---
PROCEDURE INFORMATION: Exam: US Abdomen, Limited; Right Upper Quadrant Exam date and time: 02/20/2021 11:07 AM Age: 85 years old Clinical indication: Abnormal findings; Abnormal radiologic finding of the abdomen; Radiologic exam and body structure: CT gb; Prior surgery; Surgery date: 1-6 months; Surgery type: Gb removed January 14; Additional info: Gallbladder gas TECHNIQUE: Imaging protocol: US abdomen. Real time ultrasound with image documentation. Limited exam focused on the right upper quadrant. COMPARISON: 1. US gall bladder [id number] 12/20/2020 7:[address] abdomen pelvis w con* [id number] 02/20/2021 8:21:54 AM FINDINGS: Liver: The right lobe of the liver measures 13.8 cm in the AP dimension. The liver demonstrates increased echogenicity with decreased visualization of periportal fat without sound attenuation. Gallbladder: The gallbladder is surgically absent. Echogenic adipose is present in the gallbladder fossa, no specific fluid collection or mass identified. Common bile duct: Normal. No stones. No dilation. Pancreas: The pancreas is partially obscured by bowel gas, no specific abnormality identified. Right kidney: Right renal 3.5 cm benign cyst. The right kidney measures 11.8 x 5.4 x 4.9 cm. The renal cortex measures 1.5 cm. A brief color Doppler examination of the right kidney was performed showing normal color shifts. Portal venous: A brief color and pulsed Doppler examination of the portal vein was performed showing normal hepatopedal flow. Inferior vena cava: Unremarkable intrahepatic IVC, 1.3 cm AP dimension. Intraperitoneal space: A fluid containing structure medial to the lower border of the liver is felt to represent stomach (mucosal signature). US/US gall bladder [id number] IMPRESSION: 1. Fatty infiltration of the liver. 2. Prior cholecystectomy. 3. Echogenic adipose is present in the gallbladder fossa (normal), no specific fluid collection or mass as visualized. Impression new. Please see the CT abdomen pelvis report of the same date. 4. Right renal benign cyst. No follow-up imaging is recommended.
--- NOTE | 2021-02-20 11:10 | USR_ITS ---
PROCEDURE INFORMATION: Exam: US Duplex Lower Extremity Veins, Bilateral Exam date and time: 02/20/2021 11:10 AM Age: 85 years old Clinical indication: Other: SOB; Additional info: Postop, SOB TECHNIQUE: Imaging protocol: Real-time duplex ultrasound of the extremities with 2-D devi scale, color Doppler flow and spectral waveform analysis with image documentation. Complete exam focused on the bilateral lower extremity veins. COMPARISON: MR knee LT wo con* [id number] 08/01/2020 10:13 AM FINDINGS: Right deep veins: Unremarkable. The common femoral, femoral, proximal profunda femoral and popliteal veins are patent without thrombus. Normal Doppler waveforms. Normal compressibility and/or augmentation response. Right superficial veins: Saphenofemoral junction is patent without thrombus. Left deep veins: Unremarkable. The common femoral, femoral, proximal profunda femoral and popliteal veins are patent without thrombus. Normal Doppler waveforms. Normal compressibility and/or augmentation response. Left superficial veins: Saphenofemoral junction is patent without thrombus. Soft tissues: Unremarkable. US/CV venous duplex [facility] [id number] IMPRESSION: No evidence of deep vein thrombosis.
--- NOTE | 2021-02-20 11:14 | ECG_ITS ---
[facility] Test Date: 2021-02-20 Pat Name: Rashid Bolivar Department: Room: EDIP Gender: Male Proofer: : 1935 Requested By: Macario Cortez Order Number: [id number] Reading MD: KRISTINE CHRISTINA Measurements Intervals [place] Rate: 122 P: 15 NM: 151 QRS: 193 QRSD: 102 T: 43 QT: 432 QTc: 618 Interpretive Statements SINUS TACHYCARDIA WITH OCCASIONAL SUPRAVENTRICULAR PREMATURE COMPLEXES INDETERMINATE AXIS MODERATE ST DEPRESSION [0.05+ mV ST DEPRESSION] Compared to ECG 02/20/2021 07:42:32 Indeterminate axis now present ST (T wave) deviation still present Electronically Signed On 02-20-2021 18:28:33 CDT by KRISTINE CHRISTINA [email or web address]
[2021-02-20] MEDS: LORazepam 2 mg/mL INJ 1 mL 1 MG IVP ×2 (11:49→12:14)
[2021-02-20 12:08] LABS: Troponin(5th) Baseline 46 ng/L (0-15)
[2021-02-20 12:16] LABS: NT Pro B Type Natriuretic Pept 4469 pg/mL (0-450); Procalcitonin 0.48 ng/mL (0-0.5)
--- NOTE | 2021-02-20 12:26 | USR_ITS ---
PROCEDURE INFORMATION: Exam: US Duplex Bilateral Extracranial Arteries Exam date and time: 02/20/2021 12:26 PM Age: 85 years old Clinical indication: Altered mental status/memory loss; Confusion or disorientation; Additional info: AMS TECHNIQUE: Imaging protocol: Real-time Duplex ultrasound scan of the bilateral carotid and vertebral arteries combining devi scale, color Doppler and spectral waveform analysis. Bilateral exam. COMPARISON: CT head wo con* [id number] 02/20/2021 8:16 AM FINDINGS: Right common carotid artery: Proximal 101.4 cm/second. Mid 103.4 cm/second. Distal 103.4 cm/second. Right internal carotid artery: Proximal 98.4 cm/second. Mid 90.3 cm/second. Distal 111.5 cm/second. Right ICA/CCA ratio: 1.08. Right external carotid artery: 138.9 cm/second. Right vertebral artery: Unable to visualize. Left common carotid artery: Proximal 130.5 cm/second. Mid 122.7 cm/second. Distal 121.2 cm/second. Left internal carotid artery: Proximal 112.7 cm/second. Mid 132.1 cm/second. Distal 128.2 cm/second. Left ICA/CCA ratio: 1.01. Left external carotid artery: Unable to visualize. Left vertebral artery: Unable to visualize. Other findings: Study is limited by the patient's mental status and ability to cooperate. Right proximal subclavian: 110.3 cm/second. Left proximal subclavian: Unable to visualize. US/CV carotid duplex BI* [id number] IMPRESSION: Study limitations as above. No hemodynamically significant stenosis by peak systolic velocity criteria. REFERENCES: SRU CRITERIA. The degree of internal carotid artery stenosis is based on criteria defined by the Society of Radiologists in Ultrasound (SRU). Normal is no stenosis. Mild is less than 50% stenosis. Moderate is 50-69% stenosis. Severe is greater than 69% stenosis to near occlusion. Near occlusion is a markedly narrowed lumen. Total occlusion is no detectable patent lumen.
--- NOTE | 2021-02-20 12:39 | XRR_ITS ---
PROCEDURE INFORMATION: Exam: XR Chest Exam date and time: 02/20/2021 12:39 PM Age: 85 years old Clinical indication: Device placement; Other: Central line placement; Patient HX: Central line placment TECHNIQUE: Imaging protocol: XR of the chest. Views: 1 view. Other technique: Frontal portable supine view of the chest. COMPARISON: CR (CHEST, ) 02/20/2021 6:50 AM FINDINGS: Tubes, catheters and devices: The right subclavian catheter tip has extended cephalad into the right internal jugular vein to the C2-C3 level. Lungs: Right basilar partial/subsegmental atelectasis. The pulmonary vasculature is normal. The pulmonary vasculature is stable. Improved/resolved left lower lobe consolidation/atelectasis. Pleural spaces: No right pneumothorax. The left costophrenic angle is slightly excluded. No left pneumothorax as visualized as visualized. No right pleural effusion, , no left pleural effusion as visualized. Heart/Mediastinum: The heart is normal in size and contour. Borderline cardiomegaly. Mediastinum: Stable. Vasculature: Moderate aortic arch atherosclerotic calcification without ectasia. Diaphragm: The right hemidiaphragm is moderately elevated. Bones/joints: Stable. XR/XR chest 1V portable [id number] IMPRESSION: 1. The right subclavian catheter tip in the upper right internal jugular vein. Recommend adjustment. 2. Right basilar partial/subsegmental atelectasis. Superimposed pneumonitis is difficult to exclude. Clinical correlation is recommended. 3. Improved/resolved left lower lobe consolidation/atelectasis.
--- NOTE | 2021-02-20 12:40 | ED_ITS ---
HPI - General Adult General: Chief complaint: ER Hold Stated complaint: FALL Time Seen by Provider: 02/20/21 06:26 History of Present Illness: HPI narrative: Patient was admitted to the hospitalist hospitalist came to see the patient his pressures continue to be low he asked that we start a central line see the note below. [facility] ED PFSH: Medical History Acute respiratory failure with hypoxia Adrenal insufficiency CHERI (acute kidney injury) Altered mental status COPD (chronic obstructive pulmonary disease) COVID-19 Elevated brain natriuretic peptide (BNP) level Elevated d-dimer Elevated lactic acid level Gallbladder polyp Hypertension Hypothyroidism Hypoxia Oral thrush Peripheral arterial disease Recurrent syncope Sepsis Sepsis Thyroid disease Surgical History H/O brain surgery History of gastric surgery History of prostate surgery Family History Denies family history of Diabetes CAD (coronary artery disease) Clotting disorder Dementia Hyperlipidemia Psychiatric illness Chronic kidney disease (CKD) Suicide Anesthesia complication Bleeding disorder Family history of premature coronary artery disease Lung disease Cancer Hypertension Stroke Social History Quit status (tobacco): has quit using tobacco Year quit tobacco: 1999 [id number] cig/pipe Second hand smoke exposure: No Smoking risk assessment/counseling performed?: Yes Alcohol intake: never Lives independently: Yes Household members: spouse Housing: House Marital status: service: No Current occupational status: retired Pets and animals: No History of recent travel: No Current gender identity: Male Procedures Central Line Placement Right SC: Time Out Performed: Yes Patient Placed on Monitor/Pulse Ox: Yes MD Prep: mask, gown and gloves Central Line Prep: Chlorhexidine scrub Local Anesthetic: lidocaine 1% Amount of anesthesia used (mL): 5 Ultrasound Used for Placement: Yes Central Line Lumen Inserted: triple Post Procedure: sutured in place, good blood return, all ports aspirated, flushed, capped and sterile dressing applied Post Procedure X-Ray: tip of catheter in good position and no pneumothorax seen Patient Tolerated Procedure: well Additional Comments: Patient has thick anterior chest wall was able to visualize subclavian vein advanced to the needle and visualized entering the subclavian vein got good blood draw on the first attempt. When I switched to advance the wire could not get the wire to advance blood aspiration was able to get blood and then attempted wire again was unable to advance. The needle at that point had been hubbed out. And was just long enough to enter the subclavian vein. The needle was withdrawn and we attempted at a more central position was able to get the catheter on the second attempt without difficulty. Chest x-ray shows the central line in the right IJ. Area was read prepped and draped under sterile technique wire was placed through the short port of the central line approximately residential through central line was then retracted and new triple line advanced over the wire without complication all 3 ports flush and draw blood it was resutured back into place chest x-ray pending. First attempt at repositioning the tip of the catheter still in the IJ. The area was reprepped and draped wire advanced to the short port and the triple-lumen ca theter removed the wire was then withdrawn partially and a new triple-lumen advanced over it. While still under sterile conditions an x-ray was taken it was found still to be in the IJ. Catheter had not been sewn into place at this time. The catheter was then withdrawn approximately 4 inches then rotated 180 degrees and advanced. A repeat film taken while still under sterile field shows it now in good position with the tip of the catheter in the superior vena cava. Triple-lumen catheter was sutured into place and then a final film was taken which shows it in good position all 3 ports still flush and draw blood. Course Vital Signs: Vital signs: Vital Signs Temperature 103.5 F H 02/20/21 06:28 Pulse Rate 114 H 02/20/21 09:58 Respiratory Rate 24 H 02/20/21 09:58 Blood Pressure 111/55 02/20/21 09:58 Pulse Oximetry 96 02/20/21 09:58 MDM - General Adult Lab Data: Labs: Lab Results 02/20/21 02/20/21 02/20/21 Range/Units 06:42 06:42 06:42 WBC 5.8 (4.0-10.0) 10^3/ uL RBC 5.29 (4.1-5.3) 10^6/u L Hgb 16.2 (11.7-16.6) g/dL Hct 49.2 (42.0-52.0) % MCV 93.0 (80-94) fl MCH 30.6 (28.0-34.0) pg MCHC 32.9 (30.0-36.0) g/dL RDW 13.2 (12.1-15.1) % Plt Count 147 (130-400) 10^3/c mm MPV 9.6 (7.4-10.4) fL Neut % (Auto) 84.1 % Lymph % (Auto) 9.2 % Swift % (Auto) 5.9 % Eos % (Auto) 0.0 % Baso % (Auto) 0.3 % Neut # (Auto) 4.85 (1.8-7.7) 10^3/u L Lymph # (Auto) 0.5 L (0.8-4.8) 10^3/u L Swift # (Auto) 0.3 (0.2-0.9) 10^3/u L Eos # (Auto) 0.0 (0.0-0.8) 10^3/u L Baso # (Auto) 0.0 (0.0-0.1) 10^3/u L Nucleated RBC % (a uto) 0 % Nucleated RBCs # 0.0 /100WBC Specimen Type Sample Site ABG pH (7.35-7.45) ABG pCO2 (35-45) mmHg ABG pO2 (80.0-100.0) mmH g ABG HCO3 (22-26) mmol/L ABG O2 Saturation ABG Base Excess (-2.0-2.0) mmol/ L Neeraj Test A-a O2 Gradient (5-10) mmHg Hematocrit (42-52) % Hgb O2 Saturation (95-100) % Carboxyhemoglobin (0.4-20.1) %THgb Methemoglobin (0.4-1.5) % Total Hemoglobin (14-18) g/dL Ionized Calcium (1.1-1.4) mmol/L O2 Delivery Device O2 Liters/Min % FiO2 % Clamp Forklift Operator ID Sodium 139 (136-145) mmol/L Potassium 3.8 (3.5-5.1) mmol/L Chloride 97 L (98-107) mmol/L Carbon Dioxide 27 (22-29) mmol/L Anion Gap 18.8 (5-19) BUN 15 (8-23) mg/dL Creatinine 1.1 (0.7-1.2) mg/dL GFR Calculation Not Reportable Glucose 150 H (65-115) mg/dL Calculated Osmolal ity 292 (285-295) mOsm/k g Lactic Acid 2.7 H (0.5-2.2) mmol/L Calcium 9.3 (8.5-10.5) mg/dL Total Bilirubin 0.9 (0.15-1.2) mg/dL AST 37 (0-40) U/L ALT 30 (0-41) U/L Alkaline Phosphata se 55 (40-130) IU/L Creatine Kinase 62 (39-308) U/L Troponin T Baselin e (0-15) ng/L Total Protein 8.1 (6.6-8.7) g/dL Albumin 4.3 (3.5-5.2) g/dL Globulin 3.8 (1.3-4.6) g/dL Lipase 16 (13-60) U/L Random Cortisol (2.47-19.5) ug/d L Urine Color (Yellow) Urine Appearance (CLEAR) Urine pH (5-7) Ur Specific Gravit y (1.005-1.030) Urine Protein (Negative) Urine Glucose (UA) (Normal) Urine Ketones (Negative) Urine Blood (Negative) Urine Nitrate (Negative) Urine Bilirubin (Negative) Urine Urobilinogen (Negative) mg/dL Ur Leukocyte Kim ase (Negative) SARS-CoV-2 Ag (Rap id) (Negative) 02/20/21 02/20/21 02/20/21 Range/Units 06:42 06:42 07:14 WBC (4.0-10.0) 10^3/ uL RBC (4.1-5.3) 10^6/u L Hgb (11.7-16.6) g/dL Hct (42.0-52.0) % MCV (80-94) fl MCH (28.0-34.0) pg MCHC (30.0-36.0) g/dL RDW (12.1-15.1) % Plt Count (130-400) 10^3/c mm MPV (7.4-10.4) fL Neut % (Auto) % Lymph % (Auto) % Swift % (Auto) % Eos % (Auto) % Baso % (Auto) % Neut # (Auto) (1.8-7.7) 10^3/u L Lymph # (Auto) (0.8-4.8) 10^3/u L Swift # (Auto) (0.2-0.9) 10^3/u L Eos # (Auto) (0.0-0.8) 10^3/u L Baso # (Auto) (0.0-0.1) 10^3/u L Nucleated RBC % (a uto) % Nucleated RBCs # /100WBC Specimen Type Arterial Sample Site Radial, left ABG pH 7.43 (7.35-7.45) ABG pCO2 41.1 (35-45) mmHg ABG pO2 57.7 L (80.0-100.0) mmH g ABG HCO3 27.1 H (22-26) mmol/L ABG O2 Saturation 91.5 ABG Base Excess 2.4 H (-2.0-2.0) mmol/ L Neeraj Test Pos A-a O2 Gradient 19.4 H (5-10) mmHg Hematocrit 48.4 (42-52) % Hgb O2 Saturation 90.2 L (95-100) % Carboxyhemoglobin 0.7 (0.4-20.1) %THgb Methemoglobin 0.7 (0.4-1.5) % Total Hemoglobin 15.8 (14-18) g/dL Ionized Calcium 1.2 (1.1-1.4) mmol/L O2 Delivery Device Nc O2 Liters/Min 4.0 % FiO2 36.0 % Clamp Forklift Operator ID Cak Sodium 141.0 (136-145) mmol/L Potassium 3.5 (3.5-5.1) mmol/L Chloride (98-107) mmol/L Carbon Dioxide (22-29) mmol/L Anion Gap (5-19) BUN (8-23) mg/dL Creatinine (0.7-1.2) mg/dL GFR Calculation Glucose 152.0 H (65-115) mg/dL Calculated Osmolal ity (285-295) mOsm/k g Lactic Acid (0.5-2.2) mmol/L Calcium (8.5-10.5) mg/dL Total Bilirubin (0.15-1.2) mg/dL AST (0-40) U/L ALT (0-41) U/L Alkaline Phosphata se (40-130) IU/L Creatine Kinase (39-308) U/L Troponin T Baselin e 32 H (0-15) ng/L Total Protein (6.6-8.7) g/dL Albumin (3.5-5.2) g/dL Globulin (1.3-4.6) g/dL Lipase (13-60) U/L Random Cortisol 8.36 (2.47-19.5) ug/d L Urine Color (Yellow) Urine Appearance (CLEAR) Urine pH (5-7) Ur Specific Gravit y (1.005-1.030) Urine Protein (Negative) Urine Glucose (UA) (Normal) Urine Ketones (Negative) Urine Blood (Negative) Urine Nitrate (Negative) Urine Bilirubin (Negative) Urine Urobilinogen (Negative) mg/dL Ur Leukocyte Kim ase (Negative) SARS-CoV-2 Ag (Rap id) (Negative) 02/20/21 02/20/21 Range/Units 09:16 09:17 WBC (4.0-10.0) 10^3/ uL RBC (4.1-5.3) 10^6/u L Hgb (11.7-16.6) g/dL Hct (42.0-52.0) % MCV (80-94) fl MCH (28.0-34.0) pg MCHC (30.0-36.0) g/dL RDW (12.1-15.1) % Plt Count (130-400) 10^3/c mm MPV (7.4-10.4) fL Neut % (Auto) % Lymph % (Auto) % Swift % (Auto) % Eos % (Auto) % Baso % (Auto) % Neut # (Auto) (1.8-7.7) 10^3/u L Lymph # (Auto) (0.8-4.8) 10^3/u L Swift # (Auto) (0.2-0.9) 10^3/u L Eos # (Auto) (0.0-0.8) 10^3/u L Baso # (Auto) (0.0-0.1) 10^3/u L Nucleated RBC % (a uto) % Nucleated RBCs # /100WBC Specimen Type Sample Site ABG pH (7.35-7.45) ABG pCO2 (35-45) mmHg ABG pO2 (80.0-100.0) mmH g ABG HCO3 (22-26) mmol/L ABG O2 Saturation ABG Base Excess (-2.0-2.0) mmol/ L Neeraj Test A-a O2 Gradient (5-10) mmHg Hematocrit (42-52) % Hgb O2 Saturation (95-100) % Carboxyhemoglobin (0.4-20.1) %THgb Methemoglobin (0.4-1.5) % Total Hemoglobin (14-18) g/dL Ionized Calcium (1.1-1.4) mmol/L O2 Delivery Device O2 Liters/Min % FiO2 % Clamp Forklift Operator ID Sodium (136-145) mmol/L Potassium (3.5-5.1) mmol/L Chloride (98-107) mmol/L Carbon Dioxide (22-29) mmol/L Anion Gap (5-19) BUN (8-23) mg/dL Creatinine (0.7-1.2) mg/dL GFR Calculation Glucose (65-115) mg/dL Calculated Osmolal ity (285-295) mOsm/k g Lactic Acid (0.5-2.2) mmol/L Calcium (8.5-10.5) mg/dL Total Bilirubin (0.15-1.2) mg/dL AST (0-40) U/L ALT (0-41) U/L Alkaline Phosphata se (40-130) IU/L Creatine Kinase (39-308) U/L Troponin T Baselin e (0-15) ng/L Total Protein (6.6-8.7) g/dL Albumin (3.5-5.2) g/dL Globulin (1.3-4.6) g/dL Lipase (13-60) U/L Random Cortisol (2.47-19.5) ug/d L Urine Color Yellow (Yellow) Urine Appearance Clear (CLEAR) Urine pH 6.5 (5-7) Ur Specific Gravit y 1.010 (1.005-1.030) Urine Protein Neg (Negative) Urine Glucose (UA) Norm (Normal) Urine Ketones Negative (Negative) Urine Blood Neg (Negative) Urine Nitrate Negative (Negative) Urine Bilirubin Neg (Negative) Urine Urobilinogen Norm (Negative) mg/dL Ur Leukocyte Kim ase Negative (Negative) SARS-CoV-2 Ag (Rap id) Negative (Negative) Discharge Plan Discharge Patient Disposition: Admitted As Inpatient Admit Provider: Macario Cortez Clinical Impression: Pneumonia Condition: Stable Discharge Diet: Usual diet Coding Level of Care Code ED Director Paid Media for Jose Rojas
[2021-02-20] MEDS: bacitracin ointment Pkt 1 EACH TOPICAL (12:50)
[2021-02-20] MEDS: LORazepam 2 mg/mL INJ 1 mL IVP (12:55)
--- NOTE | 2021-02-20 13:09 | XRR_ITS ---
PROCEDURE INFORMATION: Exam: XR Chest Exam date and time: 02/20/2021 1:09 PM Age: 85 years old Clinical indication: Device placement; Other: Central line placment; Additional info: Central line placement TECHNIQUE: Imaging protocol: XR of the chest. Views: 1 view. Other technique: Frontal portable semiupright view of the chest. COMPARISON: CR XR chest 1V portable [id number] 02/20/2021 12:40 PM FINDINGS: Tubes, catheters and devices: EKG leads are present overlying the chest. The right subclavian catheter tip continues to extend cephalad into the right internal jugular vein above the upper C7 level (upper limits of the image). Lungs: The pulmonary vasculature is stable. Stable right basilar pulmonary partial/subsegmental atelectasis. Pleural spaces: The left costophrenic angle is slightly excluded. No pleural effusion as visualized. No pneumothorax as visualized. Heart/Mediastinum: The heart is stable in size compared to the prior study. Vasculature: Moderate aortic arch atherosclerotic calcification without ectasia. Moderate aortic arch atherosclerotic calcification without ectasia. Bones/joints: No acute abnormality identified. XR/XR chest 1V portable [id number] IMPRESSION: 1. The right subclavian catheter tip continues to extend cephalad into the right internal jugular vein above the upper C7 level (upper limits of the image). Recommend adjustment. 2. Stable right basilar pulmonary partial/subsegmental atelectasis.
--- NOTE | 2021-02-20 13:09 | PC.NURSE ---
Central line placed by Dr. Gonzales at this time.
[2021-02-20] MEDS: hydrocortisone 100 mg/2 mL SDV IVP (13:11)
[2021-02-20] MEDS: FUROsemide 10 mg/mL SDV 4mL 40 MG IVP (13:12)
[2021-02-20] MEDS: cefepime 2,000 MG in sodium chloride 0.9% (plus) 50 ML 100 MG IV (13:14)
[2021-02-20] MEDS: vancomycin 1,500 MG/300 ML PIGGYBACK 200 MG IV (13:17)
[2021-02-20] MEDS: sodium chloride 0.9% 1,000 ML 100 ML IV (13:21)
--- NOTE | 2021-02-20 13:35 | P.HP_ITS ---
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 According to patient has been doing well, no recent fevers, no cough, no signs of infection, no nausea, vomiting, abdominal pain, no chest pain, no shortness of breath, he had been in his regular state of health. Last night, he went to bed, she noticed that he was a bit restless in bed, was lying stretched out across the bed, so she went and slept in the recliner at roughly 5 AM she heard a thump, she came to the bathroom and found him on the floor, he was a bit responsive, would arouse, but was acting confused, not really following what she was saying, so she called EMS. She did not notice any facial droop, no slurring of his speech, no focal weakness, no seizure-like episode, but does tell me that he wet the bed. In the emergency room, patient was found to be hypertensive, was given hydralazine, his blood pressure started to decrease, became hypotensive, was eventually started on Levophed, his lactic acid was 2.7, no other significant electrolyte abnormalities, CAT scan of the abdomen did show air in the gallbladder fossa, but no other acute findings, CT angiogram of the chest did not show any significant focal pneumonia, no pulmonary emboli, he was requiring 3 to 4 L nasal cannula, put on 12 L nonrebreather, alert to person, not to place, not to time, was able to follow some basic commands, is at bedside most of the history was obtained from her. Currently in the emergency room, patient is on 12 L nonrebreather, his oxygen will be turned down to regular nasal cannula, is alert to person, not to place, not to time, follows basic commands, he is on minimal Levophed, MAP is greater than 65, has sinus tachycardia, T-max 103, has received IV fluids, broad-spectrum antibiotic therapy. Review of Systems Const: Denies: fever(s), chills, fatigue or malaise Eyes: Denies: change in vision or blurry vision ENMT: Denies: nasal congestion Card: Denies: chest pain, palpitations, edema or dyspnea on exertion Resp: Denies: dyspnea, productive cough, non-productive cough or wheezing GI: Denies: abdominal pain, nausea, vomiting, hematemesis, diarrhea, constipation, hematochezia or melena : Denies: flank pain, difficulty urinating, dysuria or urinary frequency Musc: Denies: neck pain or back pain Skin/Breast: Denies: rash Medications/Allergies Home Medications Medication Instructions Recorded Confirmed Last Taken Type lisinopril 5 mg tablet 5 mg PO DAILY@12 09/01/19 02/20/21 02/19/21 History aspirin 81 mg PO DAILY@12 06/11/20 02/20/21 02/19/21 History levothyroxine 112 mcg PO DAILY@07 06/11/20 02/20/21 02/19/21 History hydrocortisone See Rx Instructions .ROUTE .COMPLEX 09/09/20 02/20/21 02/19/21 History Vitamin B-12 1 tab PO DAILY 02/20/21 02/20/21 Unknown History albuterol sulfate [ProAir HFA] 2 puff INHALATION Q4H PRN 02/20/21 02/20/21 Unknown History multivitamin 1 tab PO DAILY@12 02/20/21 02/20/21 02/19/21 History Allergies Allergy/AdvReac Type Severity Reaction Status Date / Time morphine Allergy Vomitting Verified 02/20/21 10:18 PFSH Acute PFSH: Medical History Acute respiratory failure with hypoxia Adrenal insufficiency CHERI (acute kidney injury) Altered mental status COPD (chronic obstructive pulmonary disease) COVID-19 Elevated brain natriuretic peptide (BNP) level Elevated d-dimer Elevated lactic acid level Gallbladder polyp Hypertension Hypothyroidism Hypoxia Oral thrush Peripheral arterial disease Recurrent syncope Sepsis Sepsis Thyroid disease Surgical History H/O brain surgery History of gastric surgery History of prostate surgery Family History Denies family history of Diabetes CAD (coronary artery disease) Clotting disorder Dementia Hyperlipidemia Psychiatric illness Chronic kidney disease (CKD) Suicide Anesthesia complication Bleeding disorder Family history of premature coronary artery disease Lung disease Cancer Hypertension Stroke Social History Quit status (tobacco): has quit using tobacco Year quit tobacco: 1999 [id number] cig/pipe Second hand smoke exposure: No Smoking risk assessment/counseling performed?: Yes Alcohol intake: never Lives independently: Yes Household members: spouse Housing: House Marital status: service: No Current occupational status: retired Pets and animals: No History of recent travel: No Current gender identity: Male Vitals/I&O/Wt Last Vital Signs Temp 103.5 F H 02/20/21 06:28 Pulse 114 H 02/20/21 09:58 Resp 24 H 02/20/21 09:58 BP 111/55 02/20/21 09:58 Pulse Ox 96 02/20/21 09:58 02/19/21 02/20/21 02/20/21 22:59 06:59 14:59 Intake Total 154.356 / 154.356 Balance 154.356 / 154.356 Weight last 48 hrs Weight 113.398 kg Physical Exam Const: COMMON NORMALS: no acute distress EXAM LIMITATIONS: altered mental status NUTRITIONAL APPEARANCE: obese ORIENTATION/CONSCIOUSNESS: Yes awake and Yes oriented to person; not oriented to place and not oriented to time Chest: COMMONS NORMALS: normal inspection of the chest Resp: COMMON NORMALS: normal respiratory effort, No retractions, No use of accessory muscles and clear to auscultation bilaterally Cardio: COMMON NORMALS: regular rate, regular rhythm, S1 normal heart sound present and S2 normal heart sound present GI: COMMON NORMALS: Normal to inspection, nondistended, normoactive bowel sounds present, Soft to palpation and non-tender AUSCULTATION: Yes normoactive bowel sounds PALPATION: No Tenderness to palpation present (GI), No Guarding due to palpation present (GI) and No Rigid due to palpation : COMMON NORMALS: Yes no CVA tenderness Back/Pelvis: COMMON NORMALS: no CVA tenderness and thoracic and lumbar spine normal to inspection THORACIC SPINE/UPPER BACK: Yes normal to inspection LUMBAR SPINE/LOWER BACK: Yes normal to inspection Extremity: COMMON NORMALS: normal to inspection, no clubbing, cyanosis or edema, no calf tenderness and no pedal edema Neuro: COMMON NORMALS: moves all extremities Urinary Catheter Management^: Hawkins: Cath Placed During This Visit: yes Urinary Catheter Date of Insertion: 02/20/21 Urinary Catheter Time of Insertion: 09:15 Data : 02/20/21 06:42 02/20/21 06:42 Micro: Microbiology 02/20/21 06:57 Blood Culture - Preliminary Blood SPECIMEN COLLECTED 02/20/21 06:42 Blood Culture - Preliminary Blood SPECIMEN COLLECTED A&P Assessment and plan (1) Acute respiratory failure with hypoxia: -Secondary to aspiration pneumonia, pneumonia, diastolic CHF -With acute encephalopathy -With septic shock -CT angiogram of the chest no pulmonary embolism identified, mild interval enlargement of noncalcified left lower lobe pulmonary nodule, possible pulmonary arterial hypertension, bilateral pulmonary atelectasis, coronary arthrosclerosis, -CT abdomen and pelvis: 1. A small amount of ectopic gas is present in the gallbladder fossa. Interval cholecystectomy. Recommend correlation with the date of prior procedure (less than 1 week?). 2. Mild interval enlargement of noncalcified left lower lobe pulmonary nodule. Biopsy or PET/CT recommended. Fleischner Society recommendations not given due to the interval change. 3. Hepatic cirrhosis. 4. Prior cholecystectomy. 5. Right renal benign cysts. No follow-up imaging is recommended. 6. Left renal benign parapelvic cyst. No follow-up imaging is recommended. 7. Diverticulosis. 8. Appendicolith without evidence of appendicitis. 9. Chronic calcific prostatitis. -Rapid Covid negative -UA unremarkable for UTI -CRP 28, pro-Sudarshan 0.48, lactic acid 2.7, WBC 5.8 -ABG pH 7.34, PCO2 51.4, PO2 162, bicarb 27.8 on 15 L nonrebreather -Sepsis criteria met, hypotensive, tachycardia, respiratory 20-30, T-max 103.5, and 12 L nonrebreather -Baseline troponin 46, EKG shows sinus tachycardia with ST depressions in lateral leads, BNP 4469 -Currently alert to person, not to place, not to time, he is able to follow commands such as squeezing my fingers, has bilateral extremity weakness, is unable to move bilateral extremities -central acess to be placed by ER PLAN: -Etiology behind fall is unclear -Continue broad-spectrum antibiotic therapy, vancomycin, Primaxin, Levaquin -Hold IV fluids given concerns for fluid overload -Continue Levophed, maintain MAP greater than 65 -Monitor respiratory status closely, wean oxygen as tolerated -Repeat lactic acid, TSH, mag, Phos, INR -Stress dose steroids, hydrocortisone 100 mg once, followed by 50 every 6hours -Lasix 40 mg IV twice daily -Monitor urine output, creatinine, monitor potassium -Continue home levothyroxine -Continue aspirin, statin -COVID-19 precautions, weight Covid PCR -Given here in gallbladder fossa, will do gallbladder ultrasound -Cardiac echo, carotid artery ultrasound -Serial troponins, serial EKGs -Lovenox for DVT prophylaxis -Protonix for GI prophylaxis -Patient is a DNR, is okay with intubation - Status: Acute (2) Septic shock: Status: Acute (3) Pneumonia: Status: Acute (4) NSVT (nonsustained ventricular tachycardia): Status: Acute (5) Hypothyroidism: Status: Acute (6) Hypertension: Status: Acute Qualifiers: Hypertension type: essential hypertension Qualified Code(s): I10 - Essential (primary) hypertension (7) REX (obstructive sleep apnea): Status: Acute (8) PVD (peripheral vascular disease): Status: Acute (9) CHF (congestive heart failure): Status: Acute (10) NSTEMI (non-ST elevated myocardial infarction): Status: Acute (11) Acute encephalopathy: Status: Acute Attestations Medical Necessity Statement*: Patient requires hospitalization for acute respiratory failure with hypoxia, aspiration pneumonia, pneumonia, diastolic CHF, septic shock, acute encephalopathy Coding Level of Care Code Acute Print Shop Stenographer for [facility] Fwd Diagnoses Acute respiratory failure with hypoxia J96.01 Septic shock A41.9; R65.21 Pneumonia J18.9 NSVT (nonsustained ventricular tachycardia) I47.2 Hypothyroidism E03.9 Hypertension I10 Hypertension type: essential hypertension REX (obstructive sleep apnea) G47.33 PVD (peripheral vascular disease) I73.9 CHF (congestive heart failure) I50.9 NSTEMI (non-ST elevated myocardial infarction) I21.4 Acute encephalopathy G93.40
--- NOTE | 2021-02-20 14:10 | ECG_ITS ---
[facility] Test Date: 2021-02-20 Pat Name: Rashid Bolivar Department: Room: ICU10 Gender: Male Talent Analyst: : 1935 Requested By: Willis Sabillon Order Number: [id number] Reading MD: KRISTINE CRHISTINA Measurements Intervals [place] Rate: 102 P: 12 VT: 156 QRS: 58 QRSD: 112 T: 32 QT: 387 QTc: 504 Interpretive Statements SINUS TACHYCARDIA POSSIBLE LEFT ATRIAL ENLARGEMENT [-0.1mV P-WAVE IN V1/V2] INDETERMINATE AXIS MODERATE INTRAVENTRICULAR CONDUCTION DELAY [110+ ms QRS DURATION] ABNORMAL RHYTHM ECG Compared to ECG 02/20/2021 11:32:59 Intraventricular conduction delay now present ST (T wave) deviation no longer present Electronically Signed On 02-20-2021 18:35:31 CDT by KRISTINE CHRISTINA [id number]
--- NOTE | 2021-02-20 14:19 | XRR_ITS ---
PROCEDURE INFORMATION: Exam: XR Chest Exam date and time: 02/20/2021 2:19 PM Age: 85 years old Clinical indication: Device placement; Other: Central line placment TECHNIQUE: Imaging protocol: XR of the chest. Views: 1 view. Other technique: Frontal portable semiupright view of the chest. COMPARISON: CR (CHEST, ) 02/20/2021 1:20 PM FINDINGS: Tubes, catheters and devices: The right upper extremity PICC line tip is in the cavoatrial junction. EKG leads are present overlying the chest. Lungs: Stable right basilar pulmonary subsegmental/partial atelectasis. The pulmonary vasculature is normal. Pleural spaces: No definite pleural effusion. No pneumothorax. Heart/Mediastinum: Stable mild cardiomegaly. Mediastinum: Stable. Diaphragm: The right hemidiaphragm is moderately elevated. Bones/joints: Stable. XR/XR chest 1V portable [id number] IMPRESSION: 1. PICC line placement as above. 2. Stable right basilar pulmonary subsegmental/partial atelectasis.
[2021-02-20] MEDS: haloperidol inj 5 mg/mL INJ 1 mL 2 MG IM (14:55)
[2021-02-20] MEDS: pantoprazole 40 mg SDV IVP ×2 (15:10→20:36)
[2021-02-20 15:15] LABS: ABG PCO2 55.2 mmHg (35-45); Base Excess ABG -0.2 mmol/L (-2.0-2.0); Blood Gas Allen Test Pos; Blood Gas Operator Identificat CAK; Blood Gas Sample Site Radial, left; Blood Gas Sample Type Arterial; HCO3 ABG 27.4 mmol/L (22-26); Oxygen Device NRB
[2021-02-20] MEDS: enoxaparin 40 mg/0.4 mL Syringe SUBCUT (15:15)
[2021-02-20 15:25] LABS: Basophils % 0.4 %; Eosinophils # 0.3 10^3/uL (0.0-0.8); Eosinophils % 4.8 %; Hematocrit 45.5 % (42.0-52.0); Hemoglobin 14.5 g/dL (11.7-16.6); Lymphocytes # 0.5 10^3/uL (0.8-4.8); Lymphocytes % 7.2 %; Mean Corpuscular HGB Conc 31.9 g/dL (30.0-36.0); Mean Corpuscular Hemoglobin 30.6 pg (28.0-34.0); Mean Platelet Volume 11.1 fL (7.4-10.4); Monocytes # 0.7 10^3/uL (0.2-0.9); Monocytes % 9.4 %; Neutrophils # 5.48 10^3/uL (1.8-7.7); Neutrophils % 77.4 %; Nucleated Red Blood Cells % 0 %; Platelet Count 109 10^3/cmm (130-400); Red Blood Count 4.74 10^6/uL (4.1-5.3); Red Cell Distribution Width 13.4 % (12.1-15.1); White Blood Count 7.1 10^3/uL (4.0-10.0)
[2021-02-20 15:40] LABS: INR 1.14 (0.8-1.2)
--- NOTE | 2021-02-20 15:44 | P.ANESASSM_ITS ---
Pre-Anesthetic Assessment Pre-Anesthetic Assessment: Height/Weight: Height 1.83 m Weight 113.398 kg Temp Pulse Resp BP Pulse Ox 103.5 F H 108 H 20 H 126/93 95 02/20/21 06:28 02/20/21 15:17 02/20/21 15:17 02/20/21 15:17 02/20/21 15:17 Preop Diagnosis: Symptomatic cholelithiasis Proposed Procedure: Ex-lap Familial anesthetic complications: None Social: Comment: former smoker Airway: MP: 2 Dentition: False Additional comments: Large neck circumference Pulmonary: Pulmonary: Sleep apnea Comments: acute resp failure. Covid in April with subsequent pnuemonia and discharged on home oxygen, with persistent and chronic low O2 sats. Upper 80s to mid 90s. Now wears 2 L NC maybe a couple of times a week CV/HEM: CV/HEM: CHF, UT (Nstemi) and PVD Comments: Normal holter monitor perfusion stress test 01/04 IMPRESSIONS 1. Very small size perfusion abnormality of mild severity of apical lateral wall with subtle reversibility in apical lateral and apical anterior zaidi. 2. This may represent small area of ischemia in left anterior descending artery territory. 3. The left ventricular ejection fraction is mildly reduced reduced with a value of 46%. 4. EKG portion of the study will be reported separately. 5. No prior similar studies to compare. 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 Anesthetic Plan: ASA status: 4E Anesthesia: General Risk of > 500 ml blood loss (7ml/kg in children): No Meds/Allergies Current Medications: Current Medications Generic Name Dose Route Start Last Admin Trade Name Freq PRN Reason Stop Dose Admin Enoxaparin Sodium 40 mg 02/20/21 15:00 02/20/21 15:15 Enoxaparin 40 Mg /0.4 Ml Syringe SUBCUT 40 mg Q24H REGINALDO Administration Furosemide 40 mg 02/20/21 12:30 02/20/21 13:12 Furosemide 10 Mg /Ml Sdv 4ml IVP 40 mg Q12H REGINALDO Administration Norepinephrine Bit artrate 4 mg 254 mls @ 0 mls/h r 02/20/21 09:30 02/20/21 11:42 / Dextrose IV 9 mcg/min .Q0M REGINALDO 34.29 mls/hr Titration Protocol Per Protocol Cefepime HCl 2,000 mg/ Sodium 50 mls @ 100 mls/ hr 02/20/21 11:15 02/20/21 13:44 Chloride IV Infused Q12H REGINALDO Infusion Protocol Vancomycin/PEG/NAD A/Lysine/Water 1,500 mg in 300 m ls @ 200 mls/hr 02/20/21 12:30 02/20/21 13:17 Vancocin IV 200 mls/hr Q18H REGINALDO Administration Pantoprazole Sodiu m 40 mg 02/20/21 12:30 02/20/21 15:10 Pantoprazole 40 Mg Sdv IVP 40 mg 899,2099 REGINALDO Administration Potassium Chloride 40 meq 02/20/21 12:26 02/20/21 15:15 Potassium Chlori de Er 20 Meq Table t PO Not Given DAILY REGINALDO PFSH Anesthesia PFSH: Medical History Acute respiratory failure with hypoxia Adrenal insufficiency CHERI (acute kidney injury) Altered mental status COPD (chronic obstructive pulmonary disease) COVID-19 Elevated brain natriuretic peptide (BNP) level Elevated d-dimer Elevated lactic acid level Gallbladder polyp Hypertension Hypothyroidism Hypoxia Oral thrush Peripheral arterial disease Recurrent syncope Sepsis Sepsis Thyroid disease Surgical History H/O brain surgery History of gastric surgery History of prostate surgery Family History Denies family history of Diabetes CAD (coronary artery disease) Clotting disorder Dementia Hyperlipidemia Psychiatric illness Chronic kidney disease (CKD) Suicide Anesthesia complication Bleeding disorder Family history of premature coronary artery disease Lung disease Cancer Hypertension Stroke Social History Quit status (tobacco): has quit using tobacco Year quit tobacco: 1999 [id number] cig/pipe Second hand smoke exposure: No Smoking risk assessment/counseling performed?: Yes Alcohol intake: never Lives independently: Yes Household members: spouse Housing: House Marital status: service: No Current occupational status: retired Pets and animals: No History of recent travel: No Current gender identity: Male Data Anesthesia CBC & Chem 7: 02/20/21 15:14 02/20/21 15:14 Other Labs: Laboratory Results - last 48 hr 0902/20/21 02/20/21 06:42 06:42 06:42 WBC 5.8 RBC 5.29 Hgb 16.2 Hct 49.2 MCV 93.0 MCH 30.6 MCHC 32.9 RDW 13.2 Plt Count 147 MPV 9.6 Neut % (Auto) 84.1 Lymph % (Auto) 9.2 Wilcox % (Auto) 5.9 Eos % (Auto) 0.0 Baso % (Auto) 0.3 Neut # (Auto) 4.85 Lymph # (Auto) 0.5 L Wilcox # (Auto) 0.3 Eos # (Auto) 0.0 Baso # (Auto) 0.0 Nucleated RBC % (auto) 0 Nucleated RBCs # 0.0 PT INR Specimen Type Sample Site ABG pH ABG pCO2 ABG pO2 ABG HCO3 ABG O2 Saturation ABG Base Excess Neeraj Test A-a O2 Gradient Hematocrit Hgb O2 Saturation Carboxyhemoglobin Methemoglobin Total Hemoglobin Ionized Calcium O2 Delivery Device O2 Liters/Min FiO2 Nuclear Medicine Medical Director ID Sodium 139 Potassium 3.8 Chloride 97 L Carbon Dioxide 27 Anion Gap 18.8 BUN 15 Creatinine 1.1 GFR Calculation Not Reportable Glucose 150 H Calculated Osmolality 292 Lactic Acid 2.7 H Calcium 9.3 Total Bilirubin 0.9 AST 37 ALT 30 Alkaline Phosphatase 55 Creatine Kinase 62 Troponin T Baseline C-Reactive Protein NT-Pro-B Natriuret Pep Total Protein 8.1 Albumin 4.3 Globulin 3.8 Lipase 16 Procalcitonin Random Cortisol Urine Color Urine Appearance Urine pH Ur Specific [place] Urine Protein Urine Glucose (UA) Urine Ketones Urine Blood Urine Nitrate Urine Bilirubin Urine Urobilinogen Ur Leukocyte Esterase SARS-CoV-2 Ag (Rapid) 02/20/21 02/20/21 02/20/21 06:42 06:42 07:14 WBC RBC Hgb Hct MCV MCH MCHC RDW Plt Count MPV Neut % (Auto) Lymph % (Auto) Wilcox % (Auto) Eos % (Auto) Baso % (Auto) Neut # (Auto) Lymph # (Auto) Wilcox # (Auto) Eos # (Auto) Baso # (Auto) Nucleated RBC % (auto) Nucleated RBCs # PT INR Specimen Type Arterial Sample Site Radial, left ABG pH 7.43 ABG pCO2 41.1 ABG pO2 57.7 L ABG HCO3 27.1 H ABG O2 Saturation 91.5 ABG Base Excess 2.4 H Neeraj Test Pos A-a O2 Gradient 19.4 H Hematocrit 48.4 Hgb O2 Saturation 90.2 L Carboxyhemoglobin 0.7 Methemoglobin 0.7 Total Hemoglobin 15.8 Ionized Calcium 1.2 O2 Delivery Device Nc O2 Liters/Min 4.0 FiO2 36.0 Nuclear Medicine Medical Director ID Cak Sodium 141.0 Potassium 3.5 Chloride Carbon Dioxide Anion Gap BUN Creatinine GFR Calculation Glucose 152.0 H Calculated Osmolality Lactic Acid Calcium Total Bilirubin AST ALT Alkaline Phosphatase Creatine Kinase Troponin T Baseline 32 H C-Reactive Protein NT-Pro-B Natriuret Pep Total Protein Albumin Globulin Lipase Procalcitonin Random Cortisol 8.36 Urine Color Urine Appearance Urine pH Ur Specific [place] Urine Protein Urine Glucose (UA) Urine Ketones Urine Blood Urine Nitrate Urine Bilirubin Urine Urobilinogen Ur Leukocyte Esterase SARS-CoV-2 Ag (Rapid) 02/20/21 02/20/21 02/20/21 09:16 09:17 10:00 WBC RBC Hgb Hct MCV MCH MCHC RDW Plt Count MPV Neut % (Auto) Lymph % (Auto) Wilcox % (Auto) Eos % (Auto) Baso % (Auto) Neut # (Auto) Lymph # (Auto) Wilcox # (Auto) Eos # (Auto) Baso # (Auto) Nucleated RBC % (auto) Nucleated RBCs # PT INR Specimen Type Arterial Sample Site Radial, left ABG pH 7.34 L ABG pCO2 51.4 H ABG pO2 162.0 H ABG HCO3 27.8 H ABG O2 Saturation 98.5 ABG Base Excess 1.1 Neeraj Test Pos A-a O2 Gradient Not Reportable Hematocrit 44.5 Hgb O2 Saturation 97.5 Carboxyhemoglobin 0.4 Methemoglobin 0.7 Total Hemoglobin 14.5 Ionized Calcium 1.1 O2 Delivery Device Nrb O2 Liters/Min 15.0 FiO2 Nuclear Medicine Medical Director ID Cak Sodium 139.0 Potassium 3.0 L Chloride Carbon Dioxide Anion Gap BUN Creatinine GFR Calculation Glucose 115.0 Calculated Osmolality Lactic Acid Calcium Total Bilirubin AST ALT Alkaline Phosphatase Creatine Kinase Troponin T Baseline C-Reactive Protein NT-Pro-B Natriuret Pep Total Protein Albumin Globulin Lipase Procalcitonin Random Cortisol Urine Color Yellow Urine Appearance Clear Urine pH 6.5 Ur Specific [place] 1.010 Urine Protein Neg Urine Glucose (UA) Norm Urine Ketones Negative Urine Blood Neg Urine Nitrate Negative Urine Bilirubin Neg Urine Urobilinogen Norm Ur Leukocyte Esterase Negative SARS-CoV-2 Ag (Rapid) Negative 02/20/21 02/20/21 02/20/21 11:42 11:42 15:04 WBC RBC Hgb Hct MCV MCH MCHC RDW Plt Count MPV Neut % (Auto) Lymph % (Auto) Wilcox % (Auto) Eos % (Auto) Baso % (Auto) Neut # (Auto) Lymph # (Auto) Wilcox # (Auto) Eos # (Auto) Baso # (Auto) Nucleated RBC % (auto) Nucleated RBCs # PT INR Specimen Type Arterial Sample Site Radial, left ABG pH 7.30 L ABG pCO2 55.2 H ABG pO2 98.0 ABG HCO3 27.4 H ABG O2 Saturation ABG Base Excess -0.2 Neeraj Test Pos A-a O2 Gradient Hematocrit 46.0 Hgb O2 Saturation Carboxyhemoglobin Methemoglobin Total Hemoglobin Ionized Calcium O2 Delivery Device Nrb O2 Liters/Min 15.0 FiO2 Nuclear Medicine Medical Director ID Cak Sodium Potassium Chloride Carbon Dioxide Anion Gap BUN Creatinine GFR Calculation Glucose Calculated Osmolality Lactic Acid Calcium Total Bilirubin AST ALT Alkaline Phosphatase Creatine Kinase Troponin T Baseline 46 H C-Reactive Protein 28.0 H NT-Pro-B Natriuret Pep 4469 H Total Protein Albumin Globulin Lipase Procalcitonin 0.48 Random Cortisol Urine Color Urine Appearance Urine pH Ur Specific [place] Urine Protein Urine Glucose (UA) Urine Ketones Urine Blood Urine Nitrate Urine Bilirubin Urine Urobilinogen Ur Leukocyte Esterase SARS-CoV-2 Ag (Rapid) 02/20/21 02/20/21 15:14 15:14 WBC 7.1 RBC 4.74 Hgb 14.5 Hct 45.5 MCV 96.0 H MCH 30.6 MCHC 31.9 RDW 13.4 Plt Count 109 L MPV 11.1 H Neut % (Auto) 77.4 Lymph % (Auto) 7.2 Wilcox % (Auto) 9.4 Eos % (Auto) 4.8 Baso % (Auto) 0.4 Neut # (Auto) 5.48 Lymph # (Auto) 0.5 L Wilcox # (Auto) 0.7 Eos # (Auto) 0.3 Baso # (Auto) 0.0 Nucleated RBC % (auto) 0 Nucleated RBCs # 0.0 PT 14.90 INR 1.14 Specimen Type Sample Site ABG pH ABG pCO2 ABG pO2 ABG HCO3 ABG O2 Saturation ABG Base Excess Neeraj Test A-a O2 Gradient Hematocrit Hgb O2 Saturation Carboxyhemoglobin Methemoglobin Total Hemoglobin Ionized Calcium O2 Delivery Device O2 Liters/Min FiO2 Nuclear Medicine Medical Director ID Sodium Potassium Chloride Carbon Dioxide Anion Gap BUN Creatinine GFR Calculation Glucose Calculated Osmolality Lactic Acid Calcium Total Bilirubin AST ALT Alkaline Phosphatase Creatine Kinase Troponin T Baseline C-Reactive Protein NT-Pro-B Natriuret Pep Total Protein Albumin Globulin Lipase Procalcitonin Random Cortisol Urine Color Urine Appearance Urine pH Ur Specific [place] Urine Protein Urine Glucose (UA) Urine Ketones Urine Blood Urine Nitrate Urine Bilirubin Urine Urobilinogen Ur Leukocyte Esterase SARS-CoV-2 Ag (Rapid) Micro: Microbiology 02/20/21 06:57 Blood Culture - Preliminary Blood SPECIMEN COLLECTED 02/20/21 06:42 Blood Culture - Preliminary Blood SPECIMEN COLLECTED Cardiac Studies: Cardiac Event Monitor 09/28/20
[2021-02-20 15:49] LABS: Troponin 5 2HR 37.03 ng/L (0-15)
[2021-02-20 15:52] LABS: Lactic Sepsis W/Reflex 1.1 mmol/L (0.5-2.2); Troponin 5 2HR Delta -8.97 ABS# (0-10)
--- NOTE | 2021-02-20 15:58 | P.CONIM_ITS ---
Providers/Reason For Consult Consulting Physician/Specialty*: Geovanni Lim, DO- General Surgery Reason for Consult*: sepsis with concern for abdominal sepsis Attending Physician: Macario Cortez MD Primary Care Provider: Ivory Davis APN History of Present Illness History of Present Illness Rashid Bolivar is a 85 year old male who presented to the ER this morning after falling out of bed around 0500 according to his . She notes that he did have one episode of vomiting last night was complaining of some mild abdominal pain. Patient underwent a laparoscopic cholecystectomy on 01/10/2021. According to the op report and to his it was an uneventful surgery. After his fall this morning, patient has been mostly nonverbal and fairly unresponsive with acute mental status changes. In the ER he has had continued and progressive hypotension and tachycardia concerning for sepsis. As part of his septic work- up, patient underwent CT chest abdomen pelvis. Of note there was a small amount of air in the gallbladder fossa the patient did have Surgicel placed at the time of operation which could account for this finding. He does not have any other evidence of intra-abdominal pathology on the scan. His UA was negative and also the rest of his labs are fairly unremarkable except for a slightly elevated lactate. His white count was within normal limits. He continues to exhibit signs of abdominal tenderness upon palpation according to his nurse and the ER physician. Review of Systems General: Reports: ROS unobtainable due to mental status Meds/Allergies Home Medications and Allergies Home Medications Medication Instructions Recorded Confirmed Last Taken Type lisinopril 5 mg tablet 5 mg PO DAILY@12 09/01/19 02/20/21 02/19/21 History aspirin 81 mg PO DAILY@06/11/20 02/20/21 02/19/21 History levothyroxine 112 mcg PO DAILY@07 06/11/20 02/20/21 02/19/21 History hydrocortisone See Rx Instructions .ROUTE .COMPLEX 09/09/20 02/20/21 02/19/21 History Vitamin B-12 1 tab PO DAILY 02/20/21 02/20/21 Unknown History albuterol sulfate [ProAir HFA] 2 puff INHALATION Q4H PRN 02/20/21 02/20/21 Unknown History multivitamin 1 tab PO DAILY@02/20/21 02/20/21 02/19/21 History Allergies Allergy/AdvReac Type Severity Reaction Status Date / Time morphine Allergy Vomitting Verified 02/20/21 10:18 Current Medications Current Medications Generic Name Dose Route Start Last Admin Trade Name Chantale PRN Reason Stop Dose Admin Albuterol/Ipratropium 3 ml 02/20/21 16:00 02/20/21 15:55 Ipratropium-Albuterol 3 Ml Neb INHALATION Not Given Q4H.RESPIRATORY REGINALDO Enoxaparin Sodium 40 mg 02/20/21 15:00 02/20/21 15:15 Enoxaparin 40 Mg/0.4 Ml Syringe SUBCUT 40 mg Q24H REGINALDO Administration Furosemide 40 mg 02/20/21 12:30 02/20/21 13:12 Furosemide 10 Mg/Ml Sdv 4ml IVP 40 mg Q12H REGINALDO Administration Norepinephrine Bitartrate 4 mg 254 mls @ 0 mls/hr 02/20/21 09:30 02/20/21 15:50 / Dextrose IV 6 mcg/min .Q0M REGINALDO 22.86 mls/hr Titration Protocol Per Protocol Cefepime HCl 2,000 mg/ Sodium 50 mls @ 100 mls/hr 02/20/21 11:15 02/20/21 13:44 Chloride IV Infused Q12H REGINALDO Infusion Protocol Vancomycin/PEG/NADA/Lysine/Water 1,500 mg in 300 mls @ 200 mls/hr 02/20/21 12:30 02/20/21 15:57 Vancocin IV Infused Q18H REGINALDO Infusion Pantoprazole Sodium 40 mg 02/20/21 12:30 02/20/21 15:10 Pantoprazole 40 Mg Sdv IVP 40 mg 899,2099 REGINALDO Administration Potassium Chloride 40 meq 02/20/21 12:26 02/20/21 15:15 Potassium Chloride Er 20 Meq Tablet PO Not Given DAILY REGINALDO PFSH Acute PFSH: Medical History Acute respiratory failure with hypoxia Adrenal insufficiency CHERI (acute kidney injury) Altered mental status COPD (chronic obstructive pulmonary disease) COVID-19 Elevated brain natriuretic peptide (BNP) level Elevated d-dimer Elevated lactic acid level Gallbladder polyp Hypertension Hypothyroidism Hypoxia Oral thrush Peripheral arterial disease Recurrent syncope Sepsis Sepsis Thyroid disease Surgical History H/O brain surgery History of gastric surgery History of prostate surgery Family History Denies family history of Diabetes CAD (coronary artery disease) Clotting disorder Dementia Hyperlipidemia Psychiatric illness Chronic kidney disease (CKD) Suicide Anesthesia complication Bleeding disorder Family history of premature coronary artery disease Lung disease Cancer Hypertension Stroke Social History Quit status (tobacco): has quit using tobacco Year quit tobacco: 1999 [id number] cig/pipe Second hand smoke exposure: No Smoking risk assessment/counseling performed?: Yes Alcohol intake: never Lives independently: Yes Household members: spouse Housing: House Marital status: service: No Current occupational status: retired Pets and animals: No History of recent travel: No Current gender identity: Male Vitals/I&O/Wt Last Vital Signs Temp 103.5 F H 02/20/21 06:28 Pulse 104 H 02/20/21 15:57 Resp 18 02/20/21 15:57 BP 118/93 02/20/21 15:35 Pulse Ox 96 02/20/21 15:57 02/20/21 02/20/21 02/20/21 06:59 14:59 22:59 Intake Total 1404.356 / 1404.356 441.732 / 1846.088 Balance 1404.356 / 1404.356 441.732 / 1846.088 Weight last 48 hrs Weight 250 lb Physical Exam Const: EXAM LIMITATIONS: altered mental status Eye: COMMON NORMALS: no scleral icterus Chest: COMMONS NORMALS: normal inspection of the chest Resp: COMMON NORMALS: normal respiratory effort Cardio: COMMON NORMALS: regular rhythm RATE: tachycardic RHYTHM: regular rhythm GI: COMMON NORMALS: Soft to palpation PALPATION: Yes Soft to palpation, Yes Tenderness to palpation present (GI) (Worse in the right upper quadrant ) Details: RUQ, Yes Guarding due to palpation present (GI), No Hernia present, No Palpable mass present and No Rebound tenderness present Extremity: COMMON NORMALS: normal to inspection Neuro: SENSORIUM/ORIENTATION: Yes obtunded Urinary Catheter Management^: Hawkins: Cath Placed During This Visit: yes Urinary Catheter Date of Insertion: 02/20/21 Urinary Catheter Time of Insertion: 09:15 Data Micro: Micro: Microbiology 02/20/21 06:57 Blood Culture - Pr eliminary Blood SPECIMEN [facility] 02/20/21 06:42 Blood Culture - Pr eliminary Blood SPECIMEN [facility] A&P Assessment and plan (1) Septic shock: 85-year-old male with septic shock possibly due to some intra-abdominal pathology. -OR for diagnostic laparoscopy possible exploratory laparotomy and all other indicated procedures ?Spoke at length with patient's and she understands the risk benefits and alternatives to the planned procedure and consent has been obtained Status: Acute Coding Level of Care Code Acute Layer Up for [facility] Fwd Diagnoses Septic shock A41.9; R65.21
[2021-02-20 16:04] LABS: Alanine Aminotransferase 26 U/L (0-41); Albumin Level 3.8 g/dL (3.5-5.2); Alkaline Phosphatase 43 IU/L (40-130); Anion Gap 16.1 (5-19); Aspartate Amino Transferase 35 U/L (0-40); Blood Urea Nitrogen 21 mg/dL (8-23); Calcium 7.8 mg/dL (8.5-10.5); Carbon Dioxide 26 mmol/L (22-29); Chloride 99 mmol/L (98-107); Creatine Phosphokinase 162 U/L (39-308); Globulin 2.6 g/dL (1.3-4.6); Glucose 152 mg/dL (65-115); Magnesium 1.7 mg/dL (1.7-2.3); Osmolality Calculated 290 mOsm/kg (285-295); Phosphorus 4.2 mg/dL (2.5-4.5); Potassium 4.1 mmol/L (3.5-5.1); Sodium 137 mmol/L (136-145); Total Bilirubin 0.9 mg/dL (0.15-1.2); Total Protein 6.4 g/dL (6.6-8.7)
--- NOTE | 2021-02-20 16:25 | PC.NURSE ---
1535 Received pt from ED. Transferred to bed per staff. Levophed infusing at 9mcg/min, NS 100ml/h. Abt infusing. NRB in place. VSS. Levophed decreased to 6mcg/min d/t elevated BP. Spoke witj and updated her. Explained to her that she can not come into room until pt is off covid precautions. vernalizes understanding. Surgery at bedside, will be taking to OR for possible ex lap. Will monitor.
--- NOTE | 2021-02-20 16:50 | PC.NURSE ---
Pt headed to OR with RN and SHUTTLE THREADER.
--- NOTE | 2021-02-20 19:17 | PM.OP2 ---
Brief Operative Note: Date of procedure: 02/20/21 Pre-op diagnosis: Sepsis Post-op diagnosis: other (Adhesions, no abdominal source for sepsis) Procedure Done: Diagnostic laparoscopy; adhesiolysis Surgeon: Geovanni Lim Estimated blood loss (mL): 25 Complications: None Post-op Plan: Patient to return to ICU for critical care Condition: critical Disposition: ICU Coding Level of Care Code Acute Data Processing Auditor for Jose Rojas
--- NOTE | 2021-02-20 19:23 | PM.OP ---
Operative Report Date of procedure: February 20, 2021 Pre-op Diagnosis: Sepsis with possible abdominal source Post-op Diagnosis: Adhesions; no abdominal source of sepsis Procedure Done: Diagnostic laparoscopy; adhesiolysis Pathology: none sent Surgeon: Geovanni Lim Anesthesia: General Estimated blood loss (mL): 25 IV fluids: See anesthesia record Urine output: Anesthesia record Complications: None Findings: Extensive adhesions in the midline; no succus, inflammatory fluid or evidence of bowel pathology in visualized portions of bowel Condition: critical Disposition: ICU Brief History: 85-year-old male who had acute onset of mental status changes and what appears to be sepsis of unknown source. He is pressor dependent at this time and of note had some abdominal tenderness with no peritoneal signs but concern for possible source of sepsis related to the abdomen and therefore plans are taken for diagnostic laparoscopy to rule that out. Procedure: Informed consent was obtained from his and was placed in the chart. Patient was brought back from the intensive care unit to the OR and placed supine on the operative table and general endotracheal anesthesia was induced. Patient was prepped and draped in the usual sterile fashion. A timeout was performed prior to the start of the procedure. Initial attempt was made into the abdomen through the previous 10 mm Graham port in the right lower quadrant however I was unable to reach the fascia given the patient's body habitus. Therefore I made an incision in the right upper quadrant and using a 5 mm Optiview port Optiview to into the abdomen with no events. The abdomen was insufflated. Upon entering the abdomen with the 5 mm 30 degree scope adhesions were noted in the midline that seem to be quite extensive however there was no evidence of succus or inflammatory type fluid anywhere in the abdomen looking along the gutters on both sides. The Graham trocar was placed in the right lower quadrant after bluntly penetrating the peritoneum. The adhesions to the midline were carefully taken down using a combination of blunt dissection and cautery. Some bleeding was encountered and this was controlled with both cautery and a Endoloop. Was able to at some point visualize a major portion of the small intestine but given his adhesions with a was unable to run the entire small bowel but the visualized portions of small bowel were without ischemia or evidence of perforation. I was able to visualize the majority of the cecum and ascending colon as well as the transverse colon and a portion of the descending however the there was such dense adhesions to the location of the sigmoid colon and what I believe was a portion of resected colon however the was unable to determine which portion but the visualized portions of the large intestine were also without perforation or ischemia. 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 I was unable to fully visualize the gallbladder fossa due to the adhesions but there was no evidence of purulence from that area. The stomach was visualized on the anterior portion with no evidence of perforation or ischemia. At this point felt that it would be better to terminate the procedure then to convert to open given the morbidity of an open procedure in a patient with a status without a clear indication for the open procedure. Patient was taken back to the ICU in a critical condition. All counts were correct at the end the procedure.
--- NOTE | 2021-02-20 19:30 | PC.NURSE ---
Return from OR Patient brought back from OR by bed at 1855, mechanically ventilated. Started on Fentanyl and Versed drip for sedation medications. Patient unresponsive to verbal and painful stimuli at time. Abdomen has 3 small surgical incisions open to air.
[2021-02-20] MEDS: ipratropium-albuterol 3 mL Neb INHALATION ×2 (19:31→23:42)
[2021-02-20] MEDS: hydrocortisone 100 mg/2 mL SDV 125 MG IVP (20:37)
--- NOTE | 2021-02-20 21:07 | ANE.PACU2 ---
Inpatient post-anesthesia follow up: Airway intact: No Vital signs: Temperature 98.5 F Pulse Rate [Left R adial] 103 Pulse Rate 103 Respiratory Rate 14 Blood Pressure [Ri ght Arm] 246/123 Blood Pressure 108/67 Pulse Oximetry 95 Oxygen Delivery Me thod Mechanical Ventila tion Oxygen Flow Rate 15 Fraction of Inspir ed Oxygen 60 Hydration adequate: Yes Nausea and vomiting: No Pain level: 1 Mental status: Altered
[2021-02-20 21:16] LABS: Troponin 5 6HR 30.03 ng/L (0-15)
[2021-02-21] VITALS (65 sets, daily range): BP systolic 101–174; BP diastolic 48–102; PULSE 87–122; RESP 14–17; TEMP 36.5–37; O2SAT 89–96; BMI 35.3
[2021-02-21] MEDS: FUROsemide 10 mg/mL SDV 4mL 40 MG IVP ×2 (00:38→11:40)
[2021-02-21] MEDS: hydrocortisone 100 mg/2 mL SDV 125 MG IVP ×2 (01:33→08:08)
[2021-02-21] MEDS: cefepime 2,000 MG in sodium chloride 0.9% (plus) 50 ML 100 MG IV (01:34)
[2021-02-21] MEDS: ipratropium-albuterol 3 mL Neb INHALATION ×5 (03:11→20:41)
[2021-02-21 03:18] LABS: ABG PCO2 40.1 mmHg (35-45); ABG PH Result 7.38 (7.35-7.45); Arterial Blood Gas Hematocrit 44.9 % (42-52); Base Excess ABG -1.5 mmol/L (-2.0-2.0); Blood Gas Allen Test Pos; Blood Gas Sample Site Radial, left; Blood Gas Sample Type Arterial; HCO3 ABG 23.6 mmol/L (22-26); Oxygen Device VENT
--- NOTE | 2021-02-21 05:00 | USCV_ITS ---
Rashid Bolivar Age: 85 Gender: M : 1935 Exam Date: 02/21/2021 06:22 Ordering Phys: Macario Cortez MD Technologist: Lucrecia Saeed Exam Location: [facility] [place] Indication: SOB, ON VENT, POST FALL BP: 155 / 81 HR: 100 Rhythm: Sinus Technical Quality: Technically difficult study MEASUREMENTS (Male / Female) Normal Values 2D ECHO LV Diastolic Diameter PLAX 3.8 cm 4.2 - 5.9 / 3.9 - 5.3 cm LV Systolic Diameter PLAX 2.7 cm LV Chamber Size 4.8 cm IVS Diastolic Thickness 4.3 cm 0.6 - 1.0 / 0.6 - 0.9 cm IVS Systolic Thickness 1.4 cm LVPW Diastolic Thickness 1.1 cm 0.6 - 1.0 / 0.6 - 0.9 cm LVPW Systolic Thickness 1.7 cm RV Chamber Size 3.9 cm LVOT Diameter 2.0 cm LV Ejection Fraction 2D Teich 69.6 % LA Diameter 4.9 cm LA Width 4.8 cm LA Height 6.5 cm RA Width 3.0 cm RA Height 4.2 cm Aorta at Sinotubular Diameter 2.9 cm M-MODE LV Diastolic Diameter MM 4.6 cm 4.2 - 5.9 / 3.9 - 5.3 cm LV Systolic Diameter MM 2.5 cm LV Ejection Fraction MM Teich 76.4 % IVS Diastolic Thickness MM 1.2 cm 0.6 - 1.0 / 0.6 - 0.9 cm IVS Systolic Thickness MM 2.0 cm LVPW Diastolic Thickness MM 1.3 cm 0.6 - 1.0 / 0.6 - 0.9 cm LVPW Systolic Thickness MM 2.1 cm Aortic Annulus Diameter 3.7 cm LA Ao Ratio MM 1.6 MV E Point Septal Separation 1.4 cm DOPPLER AV Peak Velocity 143.0 cm/s LVOT Peak Velocity 71.0 cm/s AV Area Cont Eq vti 2.3 cm squared AV Area Cont Eq pk 1.6 cm squared MV Area PHT 7.6 cm squared Mitral E to A Ratio 0.9 MV E' Velocity 35.0 cm/s Mitral E to MV E' Ratio 7.6 Mitral E to LV E' Lateral Ratio 8.6 Mitral E to LV E' Septal Ratio 6.8 TR Peak Velocity 298.9 cm/s TR Peak Gradient 35.7 mmHg TR Mean Velocity 208.1 cm/s TR Mean Gradient 21.1 mmHg TR Velocity Time Integral 74.6 cm TV Peak E Velocity 77.0 cm/s Right Atrial Pressure 15.0 mmHg Pulmonary Artery Systolic Pressu 50.7 mmHg PV Peak Velocity 90.0 cm/s RV Acceleration Time 0.1 s RV Ejection Time 0.3 s RV AcT/ET 0.5 FINDINGS Left Ventricle Normal left ventricular cavity size. Normal left ventricular systolic function. Left ventricular ejection fraction is estimated at 55 %. Study is inadequate for estimation of regional wall motion abnormality. Abnormal septal motion. Right Ventricle Probably low normal right ventricular systolic function. Right ventricular systolic pressure 51 mmHg. Right Atrium Right atrium not well visualized. Left Atrium Mildly increased left atrial size. Mitral Valve Moderate mitral annular calcification. No mitral valve stenosis. Trace mitral valve regurgitation. Aortic Valve Probably mildly thickened trileaflet aortic valve. No aortic valve stenosis. Tricuspid Valve Tricuspid valve not well visualized. Pulmonic Valve Pulmonic valve not well visualized. Pericardium No pericardial effusion. Aorta Aorta not well visualized. Dilated inferior vena cava. CONCLUSIONS 1. This is a technically difficult study. 2. Normal left ventricular cavity size. Normal left ventricular systolic function. Left ventricular ejection fraction is estimated at 55 %. Study is inadequate for estimation of regional wall motion abnormality. Abnormal septal motion. 3. Probably low normal right ventricular systolic function. 4. Valves grossly appear normal. 5. Pulmonary artery pressure estimated at 51 mmHg. 6. Direct comparison to previous study dated 07/14/2020 is not possible given quality of the study. Adali Lopez MD (Electronically Signed) Final Date: 21 February 2021 13:33 S
[2021-02-21] MEDS: vancomycin 1,500 MG/300 ML PIGGYBACK 200 MG IV (05:28)
[2021-02-21 05:58] LABS: Basophils % 0.1 %; Hematocrit 41.6 % (42.0-52.0); Hemoglobin 13.9 g/dL (11.7-16.6); Lymphocytes # 0.5 10^3/uL (0.8-4.8); Lymphocytes % 6.7 %; Mean Corpuscular HGB Conc 33.4 g/dL (30.0-36.0); Mean Corpuscular Volume 92.7 fl (80-94); Mean Platelet Volume 10.5 fL (7.4-10.4); Monocytes # 0.3 10^3/uL (0.2-0.9); Monocytes % 3.6 %; Neutrophils # 6.42 10^3/uL (1.8-7.7); Neutrophils % 89.2 %; Nucleated Red Blood Cells % 0 %; Platelet Count 138 10^3/cmm (130-400); Red Blood Count 4.49 10^6/uL (4.1-5.3); Red Cell Distribution Width 13.2 % (12.1-15.1); White Blood Count 7.2 10^3/uL (4.0-10.0)
--- NOTE | 2021-02-21 06:00 | ECG_ITS ---
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 Measurements Intervals [place] Rate: 113 P: 23 ID: 168 QRS: 82 QRSD: 109 T: 17 QT: 351 QTc: 482 Interpretive Statements SINUS TACHYCARDIA POSSIBLE LEFT ATRIAL ENLARGEMENT [-0.1mV P-WAVE IN V1/V2] INDETERMINATE AXIS NONSPECIFIC ST & T-WAVE ABNORMALITY Compared to ECG 02/20/2021 16:01:20 T-wave abnormality now present Intraventricular conduction delay no longer present Electronically Signed On 02-23-2021 10:42:12 CDT by Adali Lopez M.D. [email or web address] [place] [email or web address].[employer]/store/OM/[id number]
[2021-02-21 06:07] LABS: Lactate (Lactic Acid level) 3.3 mmol/L (0.5-2.2)
[2021-02-21 06:08] LABS: Ammonia 28 umol/L (16-60)
[2021-02-21 06:17] LABS: NT Pro B Type Natriuretic Pept 2514 pg/mL (0-450); Procalcitonin 0.46 ng/mL (0-0.5)
[2021-02-21 06:29] LABS: Alanine Aminotransferase 25 U/L (0-41); Albumin Level 3.4 g/dL (3.5-5.2); Alkaline Phosphatase 43 IU/L (40-130); Anion Gap 20.6 (5-19); Aspartate Amino Transferase 31 U/L (0-40); Blood Urea Nitrogen 20 mg/dL (8-23); C Reactive Protein 103.3 mg/L (0.0-4.9); Calcium 7.9 mg/dL (8.5-10.5); Carbon Dioxide 21 mmol/L (22-29); Chloride 97 mmol/L (98-107); Creatine Phosphokinase 119 U/L (39-308); Globulin 3.2 g/dL (1.3-4.6); Glucose 283 mg/dL (65-115); Magnesium 1.6 mg/dL (1.7-2.3); Osmolality Calculated 293 mOsm/kg (285-295); Phosphorus 4.1 mg/dL (2.5-4.5); Potassium 3.6 mmol/L (3.5-5.1); Sodium 135 mmol/L (136-145); Total Bilirubin 0.7 mg/dL (0.15-1.2); Total Protein 6.6 g/dL (6.6-8.7)
[2021-02-21 06:33] LABS: D Dimer 1.68 ug/mIFEU (0-0.59); INR 1.31 (0.8-1.2); Partial Thromboplastin Time 33.4 SECONDS (23.9-36.7)
--- NOTE | 2021-02-21 06:51 | PC.NURSE ---
Shift Note Frequent safety and comfort rounds continue. Orders and/or nursing care completed as indicated. Patient monitored for response to intervention and treatment(s). Education provided includes treatment goals and medications. Patient needs further reinforcement teaching. Right wrist and left AC IV are saline locked at this time. Right subclavian central line has Levophed, Vasopressin, Fentanyl, and Versed infusing. Please see MAR for infusion rates. Patient is mechanically ventilated, vent settings are as follows; mode-VC-AC, FiO2-40%, VT-550, rate-14, PEEP-5. Hawkins catheter drained 1650 mls of bright yellow urine all evening. Abdomen has 3 small surgical incisions open to air, no other wounds or skin issues noted at this time. Patient opens his eyes upon verbal command and withdrawals from pain. Will continue to monitor.
--- NOTE | 2021-02-21 07:00 | XRR_ITS ---
PROCEDURE INFORMATION: Exam: XR Chest Exam date and time: 02/21/2021 7:00 AM Age: 85 years old Clinical indication: Dyspnea; Additional info: SOB TECHNIQUE: Imaging protocol: XR of the chest. Views: 1 view. COMPARISON: CR XR chest 1V portable [id number] 02/20/2021 1:38 PM FINDINGS: Tubes, catheters and devices: An endotracheal tube is placed with its tip approximately 5.3 cm from the ava. Lungs: There are patchy opacities superimposed over the right hemidiaphragm compatible with atelectasis versus infiltrates as well. Pleural spaces: The left hemidiaphragm is obscured possibly secondary to combined pleural effusion and left basilar atelectasis versus infiltrates. Heart/Mediastinum: See Vasculature finding. Vasculature: A right subclavian vein central venous line is placed with its tip at the level of the superior cavoatrial junction. Bones/joints: Unremarkable. XR/XR chest 1V portable [id number] IMPRESSION: 1. Endotracheal tube tip 5.3 cm from the ava. 2. Stable right central venous line 3. There patchy opacities present in the the lower hemithoraces bilaterally compatible with bilateral basilar atelectasis versus pneumonia. 4. The left hemidiaphragm is obscured possibly secondary to a left pleural effusion as well.
[2021-02-21 07:51] LABS: Ferritin 723 ng/mL (30-400)
[2021-02-21] MEDS: pantoprazole 40 mg SDV IVP ×2 (08:10→20:05)
--- NOTE | 2021-02-21 08:34 | XRR_ITS ---
PROCEDURE INFORMATION: Exam: XR Chest Exam date and time: 02/21/2021 8:34 AM Age: 85 years old Clinical indication: Device placement; Other: Ogt placement TECHNIQUE: Imaging protocol: XR of the chest. Views: 1 view. Total images: 1 COMPARISON: CR (CHEST, ) 02/21/2021 5:27 AM FINDINGS: Tubes, catheters and devices: Enteric tube is seen with the tip in the body of the stomach. Tubes and catheters are otherwise unchanged from the prior exam. Lungs: Stable bilateral pleuroparenchymal disease. Pleural spaces: No pneumothorax. Heart/Mediastinum: Heart size is stable when compared to the prior exam. Vasculature: Atherosclerosis is evident. Bones/joints: Osseous structures are unchanged from the prior exam. Organs: Surgical clips are present in the right upper quadrant which are suggestive of prior cholecystectomy. XR/XR chest 1V portable [id number] IMPRESSION: 1. Enteric tube is seen with the tip in the body of the stomach. Tubes and catheters are otherwise unchanged from the prior exam. 2. Stable bilateral pleuroparenchymal disease.
--- NOTE | 2021-02-21 08:36 | PC.NURSE ---
18fr OGT placed and awaiting CXR. Vasopressin turned off per MD order. Orders to use levophed and attempt to titrate off.
[2021-02-21] MEDS: lidocaine 1% 5 ML in potassium chloride premix 100 ML 25 ML IV (08:39)
[2021-02-21] MEDS: levofloxacin-dextrose 5 % 750 MG/150 ML PREMIX 100 MG IV (09:58)
[2021-02-21] MEDS: hydrocortisone 100 mg/2 mL SDV 50 MG IVP ×2 (13:02→20:05)
[2021-02-21 13:56] LABS: Fibrinogen 381 mg/dL (174-498)
[2021-02-21] MEDS: enoxaparin 40 mg/0.4 mL Syringe SUBCUT (15:04)
[2021-02-21 16:04] LABS: Coronavirus Test Green County Not Detected
--- NOTE | 2021-02-21 16:54 | PC.NURSE ---
0930 OGT placement verified by XR. Ok to use.
--- NOTE | 2021-02-21 17:26 | P.PN_ITS ---
Subjective Subjective: Interval history: Overnight patient had a diagnostic laparoscopy due to concerns for bowel ischemia and/or abdominal perforation given gas found in gallbladder fossa and septic shock, laparoscope B did not have any significant findings except lysis of adhesions, patient was moved back to the ICU, placed on 2 pressor therapy, placed on sedation, as per my request patient was kept intubated on mechanical ventilation due to concerns for acute respiratory failure when he was in the emergency room and inability to tolerate BiPAP, Overnight patient remained on 2 pressor therapy, low-dose vasopressin, Levophed, vasopressin is currently being weaned off, has good urine output, afebrile overnight, remains on 50% FiO2, normal sinus rhythm, Vitals/I&O/Wt Last Vital Signs Temp 98.6 F 02/21/21 16:00 Pulse 110 H 02/21/21 16:54 Resp 16 02/21/21 16:49 BP 122/59 02/21/21 16:00 Pulse Ox 92 02/21/21 16:49 02/21/21 02/21/21 02/21/21 06:59 14:59 22:59 Intake Total 248.537 / 2646.917 887.105 / 887.105 217.411 / 1104.516 Output Total 1650 / 3450 600 / 600 Balance -1401.463 / -803.083 887.105 / 887.105 -382.589 / 504.516 Weight last 48 hrs Weight 118.076 kg Weight 113.398 kg Weight 113.398 kg Physical Exam Const: COMMON NORMALS: no acute distress OTHER: Intubated, sedated on mechanical ventilation Right chest, subclavian line in place Left arm arterial line in place Endotracheal tube in place Eye: COMMON NORMALS: Equal, round and reactive pupils present PUPIL: Yes Equal, round and reactive pupils present Neck/C-Spine: COMMON NORMALS: no JVD Chest: COMMONS NORMALS: normal inspection of the chest Resp: COMMON NORMALS: normal respiratory effort, No retractions, No use of accessory muscles and clear to auscultation bilaterally AUSCULTATION: clear to auscultation bilaterally Cardio: COMMON NORMALS: no JVD, regular rate, regular rhythm, S1 normal heart sound present and S2 normal heart sound present RATE: regular rate RHYTHM: regular rhythm HEART SOUNDS: S1 normal heart sound present and S2 normal heart sound present GI: COMMON NORMALS: Normal to inspection, nondistended, normoactive bowel sounds present, Soft to palpation and non-tender PALPATION: Yes Soft to palpation OTHER: Laparoscopic scars, clean and dry, with Surgicel Extremity: COMMON NORMALS: normal to inspection and no pedal edema Urinary Catheter Management^: Hawkins: Cath Placed During This Visit: yes Reason for Continuing Indwelling Catheter: Accurate Measurement of Urinary Output in Critically Ill Patients Urinary Catheter Date of Insertion: 02/20/21 Urinary Catheter Time of Insertion: 09:15 Data : 02/21/21 05:04 02/21/21 05:04 Micro: Microbiology 02/20/21 06:57 Blood Culture - Preliminary Blood NEGATIVE TO DATE 02/20/21 06:42 Blood Culture - Preliminary Blood NEGATIVE TO DATE A&P Assessment and plan (1) Acute respiratory failure with hypoxia: -Secondary to bilateral lower lobe pneumonia, aspiration pneumonia diastolic CHF -With acute encephalopathy -With septic shock -CT angiogram of the chest no pulmonary embolism identified, mild interval enlargement of noncalcified left lower lobe pulmonary nodule, possible pulmonary arterial hypertension, bilateral pulmonary atelectasis, coronary arthrosclero sis, -Venous ultrasound negative for DVT -CT abdomen and pelvis: 1. A small amount of ectopic gas is present in the gallbladder fossa. Interval cholecystectomy. Recommend correlation with the date of prior procedure (less than 1 week?). 2. Mild interval enlargement of noncalcified left lower lobe pulmonary nodule. Biopsy or PET/CT recommended. Fleischner Society recommendations not given due to the interval change. 3. Hepatic cirrhosis. 4. Prior cholecystectomy. 5. Right renal benign cysts. No follow-up imaging is recommended. 6. Left renal benign parapelvic cyst. No follow-up imaging is recommended. 7. Diverticulosis. 8. Appendicolith without evidence of appendicitis. 9. Chronic calcific prostatitis. -Rapid Covid negative, Covid PCR pending -UA unremarkable for UTI -Sepsis criteria met on admission, hypotensive, tachycardia, respiratory 20-30, T-max 103.5, and 12 L nonrebreather -Baseline troponin 46, EKG shows sinus tachycardia with ST depressions in lateral leads, BNP 4469 -Cardiac echocardiogram1. This is a technically difficult study. 2. Normal left ventricular cavity size. Normal left ventricular systolic function. Left ventricular ejection fraction is estimated at 55 %. Study is inadequate for estimation of regional wall motion abnormality. Abnormal septal motion. 3. Probably low normal right ventricular systolic function. 4. Valves grossly appear normal. 5. Pulmonary artery pressure estimated at 51 mmHg. 6. Direct comparison to previous study dated 07/14/2020 is not possible given quality of the study. -Carotid artery ultrasound no hemodynamically significant stenosis -CT scan showed air in the gallbladder fossa, status post diagnostic laparoscopy, no significant findings except lysis of adhesions -Chest x-ray this morning shows patchy opacities present in the left lower hemithorax is bilaterally, left hemidiaphragm is obscured possibly secondary to left pleural effusion -Lactic acid 3.3, ferritin 723, CRP 103, pro-Sudarshan 0.46, random cortisol 8.36, BNP 2514 PLAN: -Continue intubation, mechanical ventilation, optimize PEEP, minimize tidal volume, minimize FiO2 -ABG pH 7.38, PCO2 40, PO2 58, bicarb 23.6, on 30% FiO2, PEEP of 5 -Daily spontaneous breathing trials -Continue fentanyl, Versed for sedation, fentanyl pushes for agitation -Propofol if patient continues to have episodes of agitation -Continue Levophed, wean off vasopressin, maintain MAP greater than 65 -Continue broad-spectrum antibiotic therapy, vancomycin, Primaxin, Levaquin -Hold IV fluids given concerns for fluid overload -Continue Levophed, maintain MAP greater than 65 -Monitor respiratory status closely, wean oxygen as tolerated -Stress dose steroids, hydrocortisone 100 mg once, followed by 50 every 6hours -Lasix 40 mg IV twice daily -Monitor urine output, creatinine, monitor potassium -Continue home levothyroxine -Continue aspirin, statin -COVID-19 precautions, await Covid PCR -Lovenox for DVT prophylaxis -Protonix for GI prophylaxis -Patient is a DNR, is okay with intubation -It is still certainly unclear what had led to this acute event, possibly an asp iration event leading to pneumonia, according to patient was in good health, until he fell out of bed, down to the emergency room I did not detect any focal neurologic deficits, no slurring of speech, no facial droop, he was confused, but could answer basic questions, could follow basic commands such as squeezing my fingers, initial CT of the head was negative, however as we start to wean sedation if he shows any concerns for CVA will consider repeating CT of the head and or CTA Status: Acute (2) Septic shock: Status: Acute (3) Pneumonia: Status: Acute (4) NSVT (nonsustained ventricular tachycardia): Status: Acute (5) Hypothyroidism: Status: Acute (6) Hypertension: Status: Acute Qualifiers: Hypertension type: essential hypertension Qualified Code(s): I10 - Essential (primary) hypertension (7) REX (obstructive sleep apnea): Status: Acute (8) PVD (peripheral vascular disease): Status: Acute (9) CHF (congestive heart failure): Status: Acute (10) NSTEMI (non-ST elevated myocardial infarction): Status: Acute (11) Acute encephalopathy: Status: Acute Attestations Medical Necessity Statement*: Patient requires hospitalization for acute respiratory failure, septic shock secondary to pneumonia Coding Level of Care Code Acute Artificial Flowers Supervisor for [facility] Fwd Diagnoses Acute respiratory failure with hypoxia J96.01 Septic shock A41.9; R65.21 Pneumonia J18.9 NSVT (nonsustained ventricular tachycardia) I47.2 Hypothyroidism E03.9 Hypertension I10 Hypertension type: essential hypertension REX (obstructive sleep apnea) G47.33 PVD (peripheral vascular disease) I73.9 CHF (congestive heart failure) I50.9 NSTEMI (non-ST elevated myocardial infarction) I21.4 Acute encephalopathy G93.40
--- NOTE | 2021-02-21 17:59 | PC.NURSE ---
Shift Note Frequent safety and comfort rounds continue. Orders and/or nursing care completed as indicated. Patient monitored for response to intervention and treatment(s). Education provided includes treatment plan and medication regimen. verbalizes understanding. Also, reported to negative covid status and visiting hours for tomorrow. Levo titrated multiple times per orders. to maintain MAP >65. Pt often becomes agitated with care and turning requiring increased sedation which in tub decreases BP. No other issues noted. Will continue to monitor.
[2021-02-21] MEDS: aspirin 81 mg Chew Tablet PO (18:28)
[2021-02-21] MEDS: atorvastatin 40 mg Tablet PO (20:05)
[2021-02-21] MEDS: fentaNYL 50 mcg/mL INJ 2mL 25 MCG IVP (20:26)
[2021-02-21] MEDS: propofol 1,000 MG/100 ML INJ 6.8 MG IV (21:02)
[2021-02-22] VITALS (61 sets, daily range): BP systolic 77–159; BP diastolic 47–82; PULSE 72–103; RESP 11–20; TEMP 35.1–36.9; O2SAT 90–97; BMI 35.9
[2021-02-22] MEDS: vancomycin 1,500 MG/300 ML PIGGYBACK 200 MG IV ×2 (01:01→17:29)
[2021-02-22] MEDS: FUROsemide 10 mg/mL SDV 4mL 40 MG IVP (01:01)
[2021-02-22] MEDS: propofol 1,000 MG/100 ML INJ 13.61 MG IV (02:51)
[2021-02-22] MEDS: hydrocortisone 100 mg/2 mL SDV 50 MG IVP ×4 (02:52→19:10)
[2021-02-22] MEDS: ipratropium-albuterol 3 mL Neb INHALATION ×6 (03:53→21:00)
[2021-02-22 05:14] LABS: Basophils % 0.1 %; Hematocrit 39.6 % (42.0-52.0); Hemoglobin 13.1 g/dL (11.7-16.6); Lymphocytes # 0.9 10^3/uL (0.8-4.8); Lymphocytes % 7.7 %; Mean Corpuscular HGB Conc 33.1 g/dL (30.0-36.0); Mean Corpuscular Hemoglobin 30.9 pg (28.0-34.0); Mean Corpuscular Volume 93.4 fl (80-94); Mean Platelet Volume 10.3 fL (7.4-10.4); Monocytes % 8.4 %; Neutrophils # 9.59 10^3/uL (1.8-7.7); Neutrophils % 83.5 %; Nucleated Red Blood Cells % 0 %; Platelet Count 151 10^3/cmm (130-400); Red Blood Count 4.24 10^6/uL (4.1-5.3); Red Cell Distribution Width 13.8 % (12.1-15.1); White Blood Count 11.5 10^3/uL (4.0-10.0)
[2021-02-22 05:29] LABS: Ammonia 25 umol/L (16-60)
[2021-02-22 05:31] LABS: Lactate (Lactic Acid level) 2.2 mmol/L (0.5-2.2)
[2021-02-22 05:37] LABS: INR 1.27 (0.8-1.2)
[2021-02-22 05:38] LABS: NT Pro B Type Natriuretic Pept 1083 pg/mL (0-450); Partial Thromboplastin Time 32.5 SECONDS (23.9-36.7)
[2021-02-22 05:40] LABS: Fibrinogen 324 mg/dL (174-498)
[2021-02-22 05:43] LABS: D Dimer 0.98 ug/mIFEU (0-0.59)
[2021-02-22 05:46] LABS: ABG PH Result 7.44 (7.35-7.45); Base Excess ABG 2.4 mmol/L (-2.0-2.0); Blood Gas Sample Type Arterial; HCO3 ABG 26.6 mmol/L (22-26); PO2 ABG 55.5 mmHg (80.0-100.0)
[2021-02-22 05:47] LABS: Blood Gas Operator Identificat JB; Blood Gas Sample Site Not specified; Oxygen Device VENT
[2021-02-22 05:49] LABS: Alanine Aminotransferase 19 U/L (0-41); Albumin Level 3.3 g/dL (3.5-5.2); Alkaline Phosphatase 36 IU/L (40-130); Anion Gap 18.5 (5-19); Aspartate Amino Transferase 20 U/L (0-40); Blood Urea Nitrogen 32 mg/dL (8-23); C Reactive Protein 61.7 mg/L (0.0-4.9); Calcium 7.7 mg/dL (8.5-10.5); Carbon Dioxide 23 mmol/L (22-29); Chloride 100 mmol/L (98-107); Creatine Phosphokinase 112 U/L (39-308); Ferritin 670 ng/mL (30-400); Globulin 2.8 g/dL (1.3-4.6); Glucose 203 mg/dL (65-115); Magnesium 1.9 mg/dL (1.7-2.3); Osmolality Calculated 299 mOsm/kg (285-295); Phosphorus 2.5 mg/dL (2.5-4.5); Potassium 3.5 mmol/L (3.5-5.1); Sodium 138 mmol/L (136-145); Total Bilirubin 0.4 mg/dL (0.15-1.2); Total Protein 6.1 g/dL (6.6-8.7)
[2021-02-22 05:54] LABS: Creatinine Clr Calc Pharmacy 42.1444
--- NOTE | 2021-02-22 06:00 | ECG_ITS ---
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 Measurements Intervals [place] Rate: 89 P: 29 DE: 167 QRS: -9 QRSD: 109 T: 62 QT: 400 QTc: 488 Interpretive Statements SINUS RHYTHM INDETERMINATE AXIS POSSIBLE ANTERIOR MYOCARDIAL INFARCTION , OF INDETERMINATE AGE [30 ms Q WAVE IN V3/V4, OR R < 0.2 mV IN V4] Compared to ECG 02/21/2021 10:47:15 Myocardial infarct finding now present Sinus tachycardia no longer present T-wave abnormality no longer present Electronically Signed On 02-23-2021 10:40:44 CDT by Adali Lopez M.D. [id number]
--- NOTE | 2021-02-22 06:14 | PC.NURSE ---
Shift Note Frequent safety and comfort rounds continue. Orders and/or nursing care completed as indicated. Patient monitored for response to intervention and treatment(s). Education provided includes sedation medication. Patient needs further reinforcement teaching. OG tube is clamped currently. Vent settings are as follows; mode-VC-AC, FiO2-40%, VT-500, rate-16, PEEP-5. Left AC and right wrist IV are saline locked at this time. Right subclavian central line has Levophed, Versed, Propofol, Fentanyl infusing per protocol see MAR for infusion rates. Hawkins catheter drained 1450 mls of bright yellow urine overnight. Patient withdrawals from pain but does not open eyes. Abdomen has 3 small surgical incisions that are open to air, no other skin issues noted at this time. Will continue to monitor.
--- NOTE | 2021-02-22 07:00 | XR_ITS ---
WS: [id number] Portable AP semiupright chest, 02/22/2021 Clinical Data: sob Comparison: Portable chest, 02/21/2021 Findings: The endotracheal tube, nasogastric tube and right subclavian catheter remain in good positi on. There are patchy opacities overlying both diaphragms are unchanged. The heart is enlarged. The ao rtic arch and descending thoracic aorta show calcification and tortuosity. Monitor leads are on the c hest wall. XR/XR chest 1V portable [id number] Impression: 1. No change in position of multiple tubes. 2. No change in bilateral patchy lower lobe opacities consistent with pneumonia .
--- NOTE | 2021-02-22 07:40 | PC.NURSE ---
0700 AM assessment completed as charted. Report received. Unable to obtain axillary temp, rectal temp 95.2. MD notified and aware, maureen dhillon being gathered to place on pt. Gtts infusing per orders. Levophed titrated per orders. VSS. ETT in place, 24cm at lip. Vent settings per RT. Hawkins cath draining freely to BSD. Catheter care and oral care performed. Will continue to monitor.
--- NOTE | 2021-02-22 07:49 | PC.NURSE ---
Vick dhillon placed on pt per orders.
[2021-02-22] MEDS: levothyroxine 112 mcg Tablet PO (07:53)
[2021-02-22] MEDS: pantoprazole 40 mg SDV IVP ×2 (08:00→21:03)
[2021-02-22] MEDS: aspirin 81 mg Chew Tablet PO (08:00)
[2021-02-22] MEDS: quetiapine 25 mg Tablet 50 MG PO ×2 (08:54→17:19)
--- NOTE | 2021-02-22 09:31 | PC.CHAP ---
Pastoral Care Encounter/Spiritual Assessment Type of Contact [] Declined back tender pulp drier visit [] Patient/Family/Request visit [] Outpatient visit [] Follow-up visit [] Physician referral [] Code/Alert [x Routine visit [] Staff referral [] Actively dying [] Patient sleeping [] Family support [] [] Out of room [] Palliative care [] [] Receiving care in room [] Pre-surgical visit [] Trauma [] Long length of stay [x] ICU visit [] Other: Relational/Emotional Strength [] Patient feels connected with others/family/visitors/staff [] Distress [] Loneliness/isolation [] Abandonment Spirituality of Patient [] Person of Lisset [] Attends Sabianism of their Lisset [] Believes in Prayer [] Reads Bible or Sabianist materials [] There are Spiritual issues to be addressed Accounts Payable Supervisor Interventions [x] Prayer [] Active listening [] Non-anxious presence [] Spiritual/emotional support [] Crisis/trauma care [] Spiritual counseling [] Bereavement support [] Provided bereavement packet [] Provided Bible/devotional materials [] Provided toy/stuffed animal, coloring book to patient or family member [] Provided Communion [] Anointing/[place] [] Salvation [x] Completed spiritual assessment [] Other: Impact on Illness or Injury [] Angry [] Fearful [] Anxious [] Often cries [] Exhaustion [] Unable to work [] Unable to attend anabaptist [] Unable to walk/stand [] Unable to read [] Unable to drive [] Unable to eat/drink [] Unable to sleep [] Unable to be with family [] Patient intubated [] Other: Summary Time spent with patient
[2021-02-22] MEDS: levofloxacin-dextrose 5 % 750 MG/150 ML PREMIX 100 MG IV (10:04)
--- NOTE | 2021-02-22 11:12 | CT_ITS ---
WS: [id number] CT HEAD TECHNIQUE: Noncontrast CT of the head obtained from the skullbase to the vertex. CLINICAL INFORMATION: possible cva COMPARISON: CT February 20, 2021 DLP: 985.[address] scans at [facility] use at least one of these dose optimization techniques: automated e xposure control; mA and/or kV adjustment per patient size (includes targeted exams where dose is matc hed to clinical indication); or iterative reconstruction. FINDINGS: No evidence of intracranial hemorrhage or mass effect. Ventricular system and basal cisterns are aranda nt. Moderate small vessel changes with moderate parenchymal volume loss. No extra-axial fluid collect ions. No evidence of mass or mass effect. Normal devi-white differentiation. Paranasal sinuses and mastoid air cells are well aerated. .Normal visualized soft tissues. Intracrani al vascular calcification. CT/CT head wo con* [id number] IMPRESSION: 1. No evidence of intracranial hemorrhage or mass effect. 2. Moderate small vessel changes. Moderate parenchymal volume loss. 3. No acute intracranial findings.
[2021-02-22] MEDS: propofol 1,000 MG/100 ML INJ 3.4 MG IV (12:13)
[2021-02-22] MEDS: enoxaparin 40 mg/0.4 mL Syringe SUBCUT (14:01)
--- NOTE | 2021-02-22 14:16 | PC.NURSE ---
Weaning sedation down per orders. Pressor weaned down and turned off briefly, Map decreased to 55, levophed restarted at 2mcg/min. Tolerating sedation weaning well. at bedside. Will monitor.
--- NOTE | 2021-02-22 15:43 | PC.NURSE ---
Pt becomes agitated at times, nurse and providing soothing communication. Sedation decreased per orders. Levophed paused at this time. Will monitor.
--- NOTE | 2021-02-22 17:44 | P.PN_ITS ---
Subjective Subjective: Interval history: Patient was seen this morning, he continues to be intubated, mechanically ventilated, currently on sedation, continues to be on Levophed, afebrile overnight, normotensive, good urine output, on 50% FiO2, overnight did have episodes of agitation on the vent, did not improve with fentanyl pushes, required placement on propofol Vitals/I&O/Wt Last Vital Signs Temp 98.5 F 02/22/21 16:00 Pulse 87 02/22/21 16:00 Resp 14 02/22/21 17:37 BP 92/50 02/22/21 16:00 Pulse Ox 95 02/22/21 17:37 02/22/21 02/22/21 02/22/21 06:59 14:59 22:59 Intake Total 705.007 / 2143.336 785.870 / 785.870 83.804 / 869.674 Output Total 1450 / 2050 475 / 475 Balance -744.993 / 93.336 785.870 / 785.870 -391.196 / 394.674 Weight last 48 hrs Weight 120.372 kg Weight 118.076 kg Physical Exam Narrative: EXAM NARRATIVE: Intubated, sedated, on mechanical ventilation Const: OTHER: Intubated, sedated on mechanical ventilation Right chest, subclavian line in place Left arm arterial line in place Endotracheal tube in place Chest: COMMONS NORMALS: normal inspection of the chest Resp: COMMON NORMALS: normal respiratory effort, No retractions, No use of accessory muscles and clear to auscultation bilaterally AUSCULTATION: clear to auscultation bilaterally Cardio: COMMON NORMALS: regular rate, regular rhythm, S1 normal heart sound present and S2 normal heart sound present RATE: regular rate RHYTHM: regular rhythm HEART SOUNDS: S1 normal heart sound present and S2 normal heart sound present GI: COMMON NORMALS: Normal to inspection, nondistended, normoactive bowel sounds present, Soft to palpation and non-tender PALPATION: Yes Soft to palpation OTHER: Laparoscopic scars, clean and dry, with Surgicel Extremity: COMMON NORMALS: no pedal edema Urinary Catheter Management^: Hawkins: Cath Placed During This Visit: yes Reason for Continuing Indwelling Catheter: Accurate Measurement of Urinary Output in Critically Ill Patients Urinary Catheter Date of Insertion: 02/20/21 Urinary Catheter Time of Insertion: 09:15 Data : 02/22/21 04:55 02/22/21 04:55 A&P Assessment and plan (1) Acute respiratory failure with hypoxia: Acute respiratory failure with hypoxia: -Secondary to bilateral lower lobe pneumonia, aspiration pneumonia diastolic CHF -With acute encephalopathy -With septic shock -CT angiogram of the chest no pulmonary embolism identified, mild interval enlargement of noncalcified left lower lobe pulmonary nodule, possible pulmonary arterial hypertension, bilateral pulmonary atelectasis, coronary arthroscleros is, -Venous ultrasound negative for DVT -CT abdomen and pelvis: 1. A small amount of ectopic gas is present in the gallbladder fossa. Interval cholecystectomy. Recommend correlation with the date of prior procedure (less than 1 week?). 2. Mild interval enlargement of noncalcified left lower lobe pulmonary nodule. Biopsy or PET/CT recommended. Fleischner Society recommendations not given due to the interval change. 3. Hepatic cirrhosis. 4. Prior cholecystectomy. 5. Right renal benign cysts. No follow-up imaging is recommended. 6. Left renal benign parapelvic cyst. No follow-up imaging is recommended. 7. Diverticulosis. 8. Appendicolith without evidence of appendicitis. 9. Chronic calcific prostatitis. -Rapid Covid negative, Covid PCR pending -UA unremarkable for UTI -Sepsis criteria met on admission, hypotensive, tachycardia, respiratory 20-30, T-max 103.5, and 12 L nonrebreather -Baseline troponin 46, EKG shows sinus tachycardia with ST depressions in lateral leads, BNP 4469 -Cardiac echocardiogram1. This is a technically difficult study. 2. Normal left ventricular cavity size. Normal left ventricular systolic function. Left ventricular ejection fraction is estimated at 55 %. Study is inadequate for estimation of regional wall motion abnormality. Abnormal septal motion. 3. Probably low normal right ventricular systolic function. 4. Valves grossly appear normal. 5. Pulmonary artery pressure estimated at 51 mmHg. 6. Direct comparison to previous study dated 07/14/2020 is not possible given quality of the study. -Carotid artery ultrasound no hemodynamically significant stenosis -CT scan showed air in the gallbladder fossa, status post diagnostic laparoscopy, no significant findings except lysis of adhesions -Chest x-ray this morning shows patchy opacities present in the left lower hemithorax is bilaterally, left hemidiaphragm is obscured possibly secondary to left pleural effusion -White blood cell count 11.5, lactic acid 2.2, ferritin 670, CRP 67, pro-Sudarshan 0.4, random cortisol 8.36, BNP 1083 PLAN: -Continue intubation, mechanical ventilation, optimize PEEP, minimize tidal volume, minimize FiO2 -ABG pH 7.44, PCO2 39, PO2 55, bicarb 26.6, on 40% FiO2, tidal volume 500, PEEP of 5 -Daily spontaneous breathing trials -Continue fentanyl, Versed for sedation, propofol, fentanyl pushes for agitation -Propofol if patient continues to have episodes of agitation -Wean Levophed maintain MAP greater than 65 -Continue broad-spectrum antibiotic therapy, vancomycin, Primaxin, Levaquin -Creatinine up to 1.7, hold diuretics -Monitor respiratory status closely, wean oxygen as tolerated -Stress dose steroids, hydrocortisone 100 mg once, followed by 50 every 6hours -Lasix on hold -Monitor urine output, creatinine, monitor potassium -Continue home levothyroxine -Continue aspirin, statin -COVID-19 precautions, Covid PCR negative -Lovenox for DVT prophylaxis -Protonix for GI prophylaxis -Patient is a DNR, is okay with intubation -Repeat CT of the head no acute stroke -It is still certainly unclear what had led to this acute event, possibly an aspiration event leading to pneumonia, according to patient was in good health, until he fell out of bed, down to the emergency room I did not detect any focal neurologic deficits, no slurring of speech, no facial droop, he was confused, but could answer basic questions, could follow basic commands such as squeezing my fingers, initial CT of the head was negative, repeat CT of the head is also negative, will consider further imaging including CTA based on creatinine, -Certainly other possibilities that patient could have had a arrhythmic event, or possible seizures, will order EEG Status: Acute (2) Septic shock: Status: Acute (3) Pneumonia: Status: Acute (4) NSVT (nonsustained ventricular tachycardia): Status: Acute (5) Hypothyroidism: Status: Acute (6) Hypertension: Status: Acute Qualifiers: Hypertension type: essential hypertension Qualified Code(s): I10 - Essential (primary) hypertension (7) REX (obstructive sleep apnea): Status: Acute (8) PVD (peripheral vascular disease): Status: Acute (9) CHF (congestive heart failure): Status: Acute (10) NSTEMI (non-ST elevated myocardial infarction): Status: Acute (11) Acute encephalopathy: Status: Acute Attestations Medical Necessity Statement*: Patient requires hospitalization for acute respiratory failure secondary to pneumonia Coding Level of Care Code Acute Sales And Marketing Coordinator for g Fwd Diagnoses Acute respiratory failure with hypoxia J96.01 Septic shock A41.9; R65.21 Pneumonia J18.9 NSVT (nonsustained ventricular tachycardia) I47.2 Hypothyroidism E03.9 Hypertension I10 Hypertension type: essential hypertension REX (obstructive sleep apnea) G47.33 PVD (peripheral vascular disease) I73.9 CHF (congestive heart failure) I50.9 NSTEMI (non-ST elevated myocardial infarction) I21.4 Acute encephalopathy G93.40
--- NOTE | 2021-02-22 17:44 | PC.NURSE ---
Shift Note Frequent safety and comfort rounds continue. Orders and/or nursing care completed as indicated. Patient monitored for response to intervention and treatment(s). Education provided includes treatment plan and medication adjustments and weaning trial. at bedside verbalizes understanding. Unable to wake patient enough for spontaneous breathing trial. Only sedation remaining is fentanyl gtt. Propofol and versed off at this time. Levophed off, VSS. Pt becomes anxious and requires frequent soothing and monitoring. Bilateral wrist restraints in place. Will continue to monitor.
--- NOTE | 2021-02-22 18:52 | PC.NUTR ---
Nutrition assessment completed d/t NPO/vent status. If unable to extubate within 1-3 days, and if consistent with pt's goals of care, recommend initiation of enteral nutrition. Recommend Jevity 1.2, starting at 10 ml/hr, increasing by 10 ml/hr q 8 hours to goal rate of 50 ml/hr, to provide 1440 kcal, 66 g protein, and 968 ml H2O. Additional H2O flushes per MD discretion. If able to extubate, recommend advance diet as tolerated, with CENTER MEDICAL DIRECTOR recommendations as needed. Noted additional 408 kcal/day from [id number]-[id number] at 100 ml/hr. See full RD assessment for further details.
[2021-02-22] MEDS: fentaNYL 50 mcg/mL INJ 2mL 25 MCG IVP ×2 (19:10→23:07)
[2021-02-22] MEDS: atorvastatin 40 mg Tablet PO (21:03)
[2021-02-23] VITALS (58 sets, daily range): BP systolic 101–159; BP diastolic 53–88; PULSE 6–89; RESP 8–20; TEMP 36.5–36.7; O2SAT 89–100; BMI 35.2
[2021-02-23] MEDS: ipratropium-albuterol 3 mL Neb INHALATION ×6 (00:36→20:00)
[2021-02-23] MEDS: hydrocortisone 100 mg/2 mL SDV 50 MG IVP ×4 (01:22→20:39)
[2021-02-23] MEDS: fentaNYL 50 mcg/mL INJ 2mL 25 MCG IVP ×4 (02:32→23:40)
[2021-02-23 03:47] LABS: Basophils % 0.1 %; Hematocrit 36.5 % (42.0-52.0); Hemoglobin 11.8 g/dL (11.7-16.6); Lymphocytes # 0.7 10^3/uL (0.8-4.8); Lymphocytes % 9.5 %; Mean Corpuscular HGB Conc 32.3 g/dL (30.0-36.0); Mean Corpuscular Hemoglobin 30.1 pg (28.0-34.0); Mean Corpuscular Volume 93.1 fl (80-94); Mean Platelet Volume 10.4 fL (7.4-10.4); Monocytes # 0.5 10^3/uL (0.2-0.9); Monocytes % 7.4 %; Neutrophils # 5.94 10^3/uL (1.8-7.7); Neutrophils % 82.7 %; Nucleated Red Blood Cells % 0 %; Platelet Count 119 10^3/cmm (130-400); Red Blood Count 3.92 10^6/uL (4.1-5.3); Red Cell Distribution Width 14.3 % (12.1-15.1); White Blood Count 7.2 10^3/uL (4.0-10.0)
[2021-02-23 04:08] LABS: Ammonia 15 umol/L (16-60)
[2021-02-23 04:18] LABS: NT Pro B Type Natriuretic Pept 573 pg/mL (0-450)
[2021-02-23 04:44] LABS: Lactate (Lactic Acid level) 1.8 mmol/L (0.5-2.2)
[2021-02-23 05:04] LABS: ABG PCO2 41.6 mmHg (35-45); ABG PH Result 7.38 (7.35-7.45); Arterial Blood Gas Hematocrit 39.2 % (42-52); Base Excess ABG -0.7 mmol/L (-2.0-2.0); Blood Gas Operator Identificat HARKR; Blood Gas Sample Type Arterial; HCO3 ABG 24.5 mmol/L (22-26); Oxygen Device VENT
[2021-02-23 05:18] LABS: D Dimer 1.25 ug/mIFEU (0-0.59); Fibrinogen 277 mg/dL (174-498)
[2021-02-23 05:19] LABS: Partial Thromboplastin Time < 20.0 SECONDS (23.9-36.7)
--- NOTE | 2021-02-23 06:00 | ECG_ITS ---
[facility] Test Date: 2021-02-23 Pat Name: Rashid Bolivar Department: Room: ICU10 Gender: Male [employer] Message Broker Developer: : [id number] Requested By: Macario Cortez Order Number: [id number] Jean MD: Jaspreet Luna M.D. Measurements Intervals [place] Rate: 83 P: 52 ME: 160 QRS: 57 QRSD: 109 T: 87 QT: 393 QTc: 464 Interpretive Statements SINUS RHYTHM POSSIBLE LEFT ATRIAL ENLARGEMENT [-0.1mV P-WAVE IN V1/V2] INCOMPLETE RIGHT BUNDLE BRANCH BLOCK [90+ ms QRS DURATION, TERMINAL R IN V1/V2, 40+ ms S IN I/aVL/V4/V5/V6] ST DEVIATION AND MODERATE T-WAVE ABNORMALITY, CONSIDER LATERAL ISCHEMIA [-0.1+ mV T-WAVE IN I/aVL/V5/V6] Compared to ECG 02/22/2021 06:58:16 Incomplete right bundle-branch block now present T-wave abnormality now present Possible ischemia now present Indeterminate axis no longer present Myocardial infarct finding no longer present Electronically Signed On 02-23-2021 20:09:56 CDT by Jaspreet Luna M.D. [email or web address]
[2021-02-23 06:18] LABS: NT Pro B Type Natriuretic Pept 573 pg/mL (0-450); Procalcitonin 0.37 ng/mL (0-0.5)
[2021-02-23 06:29] LABS: Alanine Aminotransferase 15 U/L (0-41); Albumin Level 3.1 g/dL (3.5-5.2); Alkaline Phosphatase 33 IU/L (40-130); Anion Gap 19.7 (5-19); Aspartate Amino Transferase 17 U/L (0-40); Blood Urea Nitrogen 43 mg/dL (8-23); C Reactive Protein 29.9 mg/L (0.0-4.9); Calcium 7.7 mg/dL (8.5-10.5); Carbon Dioxide 23 mmol/L (22-29); Chloride 101 mmol/L (98-107); Creatine Phosphokinase 97 U/L (39-308); Ferritin 569 ng/mL (30-400); Globulin 2.5 g/dL (1.3-4.6); Glucose 144 mg/dL (65-115); Osmolality Calculated 303 mOsm/kg (285-295); Phosphorus 4.6 mg/dL (2.5-4.5); Potassium 3.7 mmol/L (3.5-5.1); Sodium 140 mmol/L (136-145); Total Bilirubin 0.3 mg/dL (0.15-1.2); Total Protein 5.6 g/dL (6.6-8.7)
[2021-02-23] MEDS: propofol 1,000 MG/100 ML INJ 10.21 MG IV (06:33)
--- NOTE | 2021-02-23 07:00 | XR_ITS ---
WS: [id number] Portable AP semiupright chest, 02/23/2021 Clinical Data: sob Comparison: Portable chest, 02/22/2021 Findings: The bilateral patchy pulmonary opacities remain the same. Endotracheal tube, nasogastric tu be and right subclavian catheter remain in the same position. Monitor leads are on the chest wall. XR/XR chest 1V portable [id number] Impression: 1. No change in bilateral patchy pulmonary opacities. 2. No change in multiple tubes.
--- NOTE | 2021-02-23 07:00 | XR_ITS ---
WS: [id number] KUB, AP supine portable, 02/23/2021 Clinical Data: postop Comparison: None. Findings: No abnormal intraabdominal masses or calcifications are seen. There is no dilatated small bowel or ev idence of obstruction. A nasogastric tube appears to end in the stomach. There are clips in the right upper quadrant from a cholecystectomy. There is air in the small bowel, stomach and colon. XR/XR KUB portable [id number] Impression: 1. Nasogastric tube ends in stomach. 2. Moderate generalized ileus.
[2021-02-23] MEDS: quetiapine 25 mg Tablet 50 MG PO ×2 (07:57→16:50)
[2021-02-23] MEDS: levothyroxine 112 mcg Tablet PO (07:57)
[2021-02-23] MEDS: pantoprazole 40 mg SDV IVP ×2 (07:58→21:04)
[2021-02-23] MEDS: aspirin 81 mg Chew Tablet PO (07:58)
[2021-02-23 08:18] LABS: Vancomycin Random 32.9 ug/mL (20.0-40.0)
--- NOTE | 2021-02-23 09:59 | PC.NURSE ---
Wasted 60ml versed with Bridget MARTINEZ
--- NOTE | 2021-02-23 10:00 | PC.NURSE ---
Medication Waste Wasted 60 mL of Versed with JOANN Padilla.
[2021-02-23] MEDS: dexmedeTOMIDine 0.9 % NaCL 400 MCG/100 ML PREMIX IV (10:09)
[2021-02-23 13:31] LABS: Vancomycin Trough 28.8 ug/mL (10-15)
--- NOTE | 2021-02-23 14:02 | PC.NURSE ---
Pt extubated per MD order at 1340 to O2@2LNC. Tolerated well. Able to follow commands. Art line removed per orders. at bedside. Pt denies any needs or pain at this time. Precedex infusing per orders. No other medications infusing at this time. Will monitor.
[2021-02-23] MEDS: enoxaparin 40 mg/0.4 mL Syringe SUBCUT (14:36)
--- NOTE | 2021-02-23 15:05 | PC.SOCIAL ---
Pg 2 IMM Pt is still intubated at this time. A copy was left for pt's at bedside. Initialed, dated, & timed a copy & placed in chart.
--- NOTE | 2021-02-23 15:25 | PC.RESP ---
RT Shift Note Frequent safety and respiratory rounds continue. Orders completed as indicated. Patient monitored pre and post treatments throughout shift. Patient [Did.] tolerate treatments appropriately. Condition [.DidNotChange]. Patient and/or customer development representative educated on respiratory treatment and medications. Patient and/or customer development representative [reinforcement needed. Will continue to monitor patient progress. RT Shift Note
--- NOTE | 2021-02-23 16:43 | P.PN_ITS ---
Subjective Subjective: Interval history: Patient was seen this morning, he is on minimal sedation, he is off pressor therapy afebrile overnight, is on 40% FiO2, 1075 urine output he does follow commands, is able to nod his head, squeeze my fingers, pupils equal round reactive to light, does track me, does withdraw from pain Vitals/I&O/Wt Last Vital Signs Temp 98.1 F 02/23/21 12:00 Pulse 65 02/23/21 16:00 Resp 16 02/23/21 15:24 BP 131/80 02/23/21 16:00 Pulse Ox 93 02/23/21 16:00 02/23/21 02/23/21 02/23/21 06:59 14:59 22:59 Intake Total 260.917 / 1554.841 226.435 / 226.435 100 / 326.435 Output Total 600 / 1075 Balance -339.083 / 479.841 226.435 / 226.435 100 / 326.435 Weight last 48 hrs Weight 117.934 kg Weight 120.372 kg Physical Exam Narrative: EXAM NARRATIVE: Intubated, minimal sedation, does follow commands Const: OTHER: n Right chest, subclavian line in place Left arm arterial line in place Endotracheal tube in place Eye: COMMON NORMALS: Equal, round and reactive pupils present PUPIL: Yes Equal, round and reactive pupils present Resp: COMMON NORMALS: normal respiratory effort, No retractions, No use of accessory muscles and clear to auscultation bilaterally AUSCULTATION: clear to auscultation bilaterally Cardio: COMMON NORMALS: regular rate, regular rhythm, S1 normal heart sound present and S2 normal heart sound present RATE: regular rate RHYTHM: regular rhythm HEART SOUNDS: S1 normal heart sound present and S2 normal heart sound present GI: COMMON NORMALS: Normal to inspection, nondistended, normoactive bowel sounds present, Soft to palpation and non-tender PALPATION: Yes Soft to palpation Extremity: COMMON NORMALS: no pedal edema Urinary Catheter Management^: Hawkins: Cath Placed During This Visit: yes Reason for Continuing Indwelling Catheter: Accurate Measurement of Urinary Output in Critically Ill Patients Urinary Catheter Date of Insertion: 02/20/21 Urinary Catheter Time of Insertion: 09:15 Data : 02/23/21 03:20 02/23/21 03:20 Micro: Microbiology 02/21/21 07:40 Urine Culture - Final Urine Catheterized A&P Assessment and plan (1) Acute respiratory failure with hypoxia: Acute respiratory failure with hypoxia: -Secondary to bilateral lower lobe pneumonia, aspiration pneumonia diastolic CHF -With acute encephalopathy, now following commands on minimal sedation -With septic shock, resolved -CT angiogram of the chest no pulmonary embolism identified, mild interval enlargement of noncalcified left lower lobe pulmonary nodule, possible pulmonary arterial hypertension, bilateral pulmonary atelectasis, coronary art hrosclerosis, -Venous ultrasound negative for DVT -CT abdomen and pelvis: 1. A small amount of ectopic gas is present in the gallbladder fossa. Interval cholecystectomy. Recommend correlation with the date of prior procedure (less than 1 week?). 2. Mild interval enlargement of noncalcified left lower lobe pulmonary nodule. Biopsy or PET/CT recommended. Fleischner Society recommendations not given due to the interval change. 3. Hepatic cirrhosis. 4. Prior cholecystectomy. 5. Right renal benign cysts. No follow-up imaging is recommended. 6. Left renal benign parapelvic cyst. No follow-up imaging is recommended. 7. Diverticulosis. 8. Appendicolith without evidence of appendicitis. 9. Chronic calcific prostatitis. -Rapid Covid negative, Covid PCR pending -UA unremarkable for UTI -Sepsis criteria met on admission, hypotensive, tachycardia, respiratory 20-30, T-max 103.5, and 12 L nonrebreather -Baseline troponin 46, EKG shows sinus tachycardia with ST depressions in lateral leads, BNP 4469 -Cardiac echocardiogram1. This is a technically difficult study. 2. Normal left ventricular cavity size. Normal left ventricular systolic function. Left ventricular ejection fraction is estimated at 55 %. Study is inadequate for estimation of regional wall motion abnormality. Abnormal septal motion. 3. Probably low normal right ventricular systolic function. 4. Valves grossly appear normal. 5. Pulmonary artery pressure estimated at 51 mmHg. 6. Direct comparison to previous study dated 07/14/2020 is not possible given quality of the study. -Carotid artery ultrasound no hemodynamically significant stenosis -CT scan showed air in the gallbladder fossa, status post diagnostic lapa roscopy, no significant findings except lysis of adhesions -Chest x-ray this morning shows patchy opacities present in the left lower hemithorax is bilaterally, left hemidiaphragm is obscured possibly secondary to left pleural effusion PLAN: -Spontaneous breathing trial today -ABG pH 7.38, PCO2 41.6, PO2 64, bicarb 24.5, on 40% FiO2, tidal volume 500, PEEP of 6 -Wean sedation -Off Levophed maintain MAP greater than 65 -Continue broad-spectrum antibiotic therapy, vancomycin trough is elevated at 28.8, stop vancomycin, start Zyvox, Primaxin, Levaquin -Creatinine up to 2.0, holding diuretics, concerns for possible vancomycin induced nephrotoxicity, hold off on IV hydration monitor kidney function, monitor urine output, hold nephrotoxic agents -Monitor respiratory status closely, wean oxygen as tolerated -Stress dose steroids, hydrocortisone 100 mg once, followed by 50 every 6hours -Monitor urine output, creatinine, monitor potassium -Continue home levothyroxine -Continue aspirin, statin -COVID-19 precautions, Covid PCR negative -Lovenox for DVT prophylaxis -Protonix for GI prophylaxis -Patient is a DNR, is okay with intubation -Repeat CT of the head no acute stroke -It is still certainly unclear what had led to this acute event, likely a seizure leading to aspiration event leading to pneumonia, according to patient was in good health, until he fell out of bed, down to the emergency room I did not detect any focal neurologic deficits, no slurring of speech, no facial droop, he was confused, but could answer basic questions, could follow basic commands such as squeezing my fingers, initial CT of the head was negative, repeat CT of the head is also negative, will consider further imaging including CTA based on creatinine, -Certainly other possibilities that patient could have had a arrhythmic event, or seizures, will order EEG Status: Acute (2) Septic shock: Status: Acute (3) Pneumonia: Status: Acute (4) NSVT (nonsustained ventricular tachycardia): Status: Acute (5) Hypothyroidism: Status: Acute (6) Hypertension: Status: Acute Qualifiers: Hypertension type: essential hypertension Qualified Code(s): I10 - Essential (primary) hypertension (7) REX (obstructive sleep apnea): Status: Acute (8) PVD (peripheral vascular disease): Status: Acute (9) CHF (congestive heart failure): Status: Acute (10) NSTEMI (non-ST elevated myocardial infarction): Status: Acute (11) Acute encephalopathy: Status: Acute Attestations Medical Necessity Statement*: Patient requires hospitalization for acute respiratory failure secondary to pneumonia Coding Level of Care Code Acute Remelt Sugar Boiler for [facility] Fwd Diagnoses Acute respiratory failure with hypoxia J96.01 Septic shock A41.9; R65.21 Pneumonia J18.9 NSVT (nonsustained ventricular tachycardia) I47.2 Hypothyroidism E03.9 Hypertension I10 Hypertension type: essential hypertension REX (obstructive sleep apnea) G47.33 PVD (peripheral vascular disease) I73.9 CHF (congestive heart failure) I50.9 NSTEMI (non-ST elevated myocardial infarction) I21.4 Acute encephalopathy G93.40
[2021-02-23] MEDS: dexmedeTOMIDine 0.9 % NaCL 400 MCG/100 ML PREMIX 14.74 MCG IV ×2 (16:49→23:01)
--- NOTE | 2021-02-23 17:37 | PC.NURSE ---
Shift Note Frequent safety and comfort rounds continue. Orders and/or nursing care completed as indicated. Patient monitored for response to intervention and treatment(s). Education provided includes treatment plan and medication regimen. Also, spoke at length with patient and r/t care forthcoming in stay. Pt AAOx3. Asks questions, c/o sore throat and this nurse explained to him that it will be sore for some time d/t intubation. Verbalizes understanding. Bedside swallow study completed, no s/s of aspiration with swallowing. Takes pills whole with small sips of water. Precedex infusing per orders. No other issues noted. Will continue to monitor.
--- NOTE | 2021-02-23 19:17 | PC.NURSE ---
Addendum entered by Denisa Mak RN 02/23/21 19:20: 10 mL* was wasted Addendum entered by Gavino Walker RN 02/23/21 19:18: witnessed 10 ml fentanyl waste Original Note: FENTANYL WASTE 10 mg IV fentanyl wasted with JOANN Mancia
--- NOTE | 2021-02-23 19:54 | P.PN_ITS ---
Subjective Medications: Reviewed: Yes Vitals/I&O/Wt Last Vital Signs Temp 98.1 F 02/23/21 12:00 Pulse 65 02/23/21 16:00 Resp 16 02/23/21 15:24 BP 131/80 02/23/21 16:00 Pulse Ox 93 02/23/21 16:00 02/23/21 02/23/21 02/23/21 06:59 14:59 22:59 Intake Total 260.917 / 1554.841 226.435 / 226.435 413.454 / 639.889 Output Total 600 / 1075 750 / 750 Balance -339.083 / 479.841 226.435 / 226.435 -336.546 / -110.111 Weight last 48 hrs Weight 260 lb Weight 265 lb 6 oz Physical Exam Urinary Catheter Management^: Hawkins: Cath Placed During This Visit: yes Reason for Continuing Indwelling Catheter: Accurate Measurement of Urinary Outpu t in Critically Ill Patients Urinary Catheter Date of Insertion: 02/20/21 Urinary Catheter Time of Insertion: 09:15 Data : 02/23/21 03:20 02/23/21 03:20 Micro: Microbiology 02/21/21 07:40 Urine Culture - Final Urine Catheterized Coding Level of Care Code Acute Lead Clinical Research Coordinator for Jose Rojas
--- NOTE | 2021-02-23 19:58 | P.CONIM_ITS ---
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 According to patient has been doing well, no recent fevers, no cough, no signs of infection, no nausea, vomiting, abdominal pain, no chest pain, no shortness of breath, he had been in his regular state of health. According to on 02/19/2021 night patient had an episode of vomiting and 02/20/2021 early hours 5 AM she found him on the floor, he was acting confused and not following commands and urinary incontinence, so she called EMS. She did not notice any facial droop, no slurring of his speech, no focal weakness, no obvious convulsions. In the emergency room, patient was found to be hypertensive, was given hydralazine, his blood pressure started to decrease, became hypotensive, was eventually started on Levophed, his lactic acid was 2.7, no other significant electrolyte abnormalities, CAT scan of the abdomen did show air in the gallbladder fossa, but no other acute findings, CT angiogram of the chest did not show any significant focal pneumonia, no pulmonary emboli,. Patient was admitted to ICU, intubated and not following commands, abdomen appears distended and the right upper quadrant tenderness. Given patient's abdominal findings and recent laparoscopic cholecystectomy, 5 dependent on pressors, and and gradual clinical deterioration, general surgery consulted and underwent diagnostic laparoscopy on 02/20/2021 due to concerns for bowel ischemia and/or abdominal perforation. Laparoscopic did not show any significant findings except lysis of additions and patient was transferred to ICU from the OR intubated and mechanically ventilated. He remained on 2 pressors. Pulmonary critical care consulted for hypoxic respiratory failure on mechanical ventilation-for possible weaning and extubation. I have known this patient in [facility] where he follows up since May 2020 his COVID discharged and for his COPD. - patient seen at bedside in breathing trial -Decision was made to extubate patient to BiPAP -Labs and imaging reviewed Review of Systems General: Reports: ROS unobtainable due to endotracheal tube, ROS unobtainable due to medical condition and ROS unobtainable due to mental status Meds/Allergies Home Medications and Allergies Home Medications Medication Instructions Recorded Confirmed Last Taken Type lisinopril 5 mg tablet 5 mg PO DAILY@12 09/01/19 02/20/21 02/19/21 History aspirin 81 mg PO DAILY@06/11/20 02/20/21 02/19/21 History levothyroxine 112 mcg PO DAILY@07 06/11/20 02/20/21 02/19/21 History hydrocortisone See Rx Instructions .ROUTE .COMPLEX 09/09/20 02/20/21 02/19/21 History Vitamin B-12 1 tab PO DAILY 02/20/21 02/20/21 Unknown History albuterol sulfate [ProAir HFA] 2 puff INHALATION Q4H PRN 02/20/21 02/20/21 Unknown History multivitamin 1 tab PO DAILY@02/20/21 02/20/21 02/19/21 History Allergies Allergy/AdvReac Type Severity Reaction Status Date / Time morphine Allergy Vomitting Verified 02/20/21 10:18 Current Medications Current Medications Generic Name Dose Route Start Last Admin Trade Name Chantale PRN Reason Stop Dose Admin Albuterol/Ipratropium 3 ml 02/20/21 16:00 02/23/21 15:23 Ipratropium-Albuterol 3 Ml Neb INHALATION 3 ml Q4H.RESPIRATORY REGINALDO Administration Aspirin 81 mg 02/21/21 18:18 02/23/21 07:58 Aspirin 81 Mg Chew Tablet PO 81 mg DAILY REGINALDO Administration Atorvastatin Calcium 40 mg 02/20/21 21:00 02/22/21 21:03 Atorvastatin 40 Mg Tablet PO 40 mg BEDTIME REGINALDO Administration Enoxaparin Sodium 40 mg 02/20/21 15:00 02/23/21 14:36 Enoxaparin 40 Mg/0.4 Ml Syringe SUBCUT 40 mg Q24H REGINALDO Administration Fentanyl 25 mcg 02/21/21 16:31 02/23/21 06:03 Fentanyl 50 Mcg/Ml Inj 2ml IVP 25 mcg Q4H PRN Administration agitation on mechanical vent Hydrocortisone Sodium Succinate 50 mg 02/21/21 14:00 02/23/21 14:36 Hydrocortisone 100 Mg/2 Ml Sdv IVP 50 mg Q6H REGINALDO Administration Norepinephrine Bitartrate 4 mg 254 mls @ 0 mls/hr 02/20/21 09:30 02/23/21 09:56 / Dextrose IV Infused .Q0M REGINALDO Titration Protocol Per Protocol Imipenem/Cilastatin Sodium 500 100 mls @ 200 mls/hr 02/20/21 15:00 02/23/21 15:19 mg/ Sodium Chloride IV Infused Q6H REGINALDO Infusion Protocol Propofol 1,000 mg in 100 mls @ 0 mls/hr 02/20/21 18:15 02/23/21 09:56 Diprivan IV Infused .Q0M REGINALDO Titration Protocol Per Protocol Fentanyl 1,000 mcg/ Sodium 100 mls @ 0 mls/hr 02/20/21 18:15 02/23/21 11:49 Chloride IV 0 mcg/hr .Q0M REGINALDO 0 mls/hr Titration Protocol Per Protocol Midazolam HCl 100 mg/ Sodium 100 mls @ 0 mls/hr 02/20/21 18:45 02/23/21 09:56 Chloride IV Infused .Q0M REGINALDO Titration Protocol Per Protocol dexmedeTOMIDine 0.9 % NaCL 400 mcg in 100 mls @ 0 mls/hr 02/23/21 10:00 02/23/21 16:49 Dexmedetomidine-Ns IV 0.5 mcg/kg/hr .Q0M REGINALDO 14.74 mls/hr Administration Protocol Per Protocol Levothyroxine Sodium 112 mcg 02/21/21 07:00 02/23/21 07:57 Levothyroxine 112 Mcg Tablet PO 112 mcg DAILY@07 REGINALDO Administration Pantoprazole Sodium 40 mg 02/20/21 12:30 02/23/21 07:58 Pantoprazole 40 Mg Sdv IVP 40 mg 0900,2100 REGINALDO Administration Quetiapine Fumarate 50 mg 02/22/21 09:00 02/23/21 16:50 Quetiapine 25 Mg Tablet PO 50 mg BID REGINALDO Administration PFSH Acute PFSH: Medical History (Updated 02/23/21 @ 20:58 by Rosalio Jo MD) Acute respiratory failure with hypoxia Adrenal insufficiency CHERI (acute kidney injury) Altered mental status COPD (chronic obstructive pulmonary disease) COVID-19 Elevated brain natriuretic peptide (BNP) level Elevated d-dimer Elevated lactic acid level Gallbladder polyp Hypertension Hypothyroidism Hypoxia Oral thrush Peripheral arterial disease Recurrent syncope Sepsis Sepsis Thyroid disease Surgical History (Updated 02/23/21 @ 20:17 by Rosalio Jo MD) H/O brain surgery History of gastric surgery History of prostate surgery Family History Denies family history of Diabetes CAD (coronary artery disease) Clotting disorder Dementia Hyperlipidemia Psychiatric illness Chronic kidney disease (CKD) Suicide Anesthesia complication Bleeding disorder Family history of premature coronary artery disease Lung disease Cancer Hypertension Stroke Social History Quit status (tobacco): has quit using tobacco Year quit tobacco: 1999 [id number] cig/pipe Second hand smoke exposure: No Smoking risk assessment/counseling performed?: Yes Alcohol intake: never Lives independently: Yes Household members: spouse Housing: House Marital status: service: No Current occupational status: retired Pets and animals: No History of recent travel: No Current gender identity: Male Vitals/I&O/Wt Last Vital Signs Temp 98.1 F 02/23/21 12:00 Pulse 65 02/23/21 16:00 Resp 16 02/23/21 15:24 BP 131/80 02/23/21 16:00 Pulse Ox 93 02/23/21 16:00 02/23/21 02/23/21 02/23/21 06:59 14:59 22:59 Intake Total 260.917 / 1554.841 226.435 / 226.435 413.454 / 639.889 Output Total 600 / 1075 750 / 750 Balance -339.083 / 479.841 226.435 / 226.435 -336.546 / -110.111 Weight last 48 hrs Weight 260 lb Weight 265 lb 6 oz Physical Exam Narrative: EXAM NARRATIVE: PHYSICAL EXAM: General: lying in bed, intubated-off sedation moving all limbs HEENT:NCAT, PERRLA, EOMI Neck: Supple Lungs: Reduced breath sounds both bases Heart: s1/s2, RRR Abd: soft, NT, ND, BS + Normoactive Extremities: No edema CONSTRUCTION ASSISTANT: sedated and limited CONSTRUCTION ASSISTANT exam possible but moving all limbs and opening eyes SKIN: no rash Urinary Catheter Management^: Hawkins: Cath Placed During This Visit: yes Reason for Continuing Indwelling Catheter: Accurate Measurement of Urinary Output in Critically Ill Patients Urinary Catheter Date of Insertion: 02/20/21 Urinary Catheter Time of Insertion: 09:15 Data Labs: Other Labs: Laboratory Results WBC 7.2 10^3/uL (4.0- 10.0) 02/23/21 03:20 RBC 3.92 10^6/uL (4.1 -5.3) L 02/23/21 03:20 Hgb 11.8 g/dL (11.7-1 6.6) 02/23/21 03:20 Hct 36.5 % (42.0-52.0 ) L 02/23/21 03:20 MCV 93.1 fl (80-94) 02/23/21 03:20 MCH 30.1 pg (28.0-34. 0) 02/23/21 03:20 MCHC 32.3 g/dL (30.0-3 6.0) 02/23/21 03:20 RDW 14.3 % (12.1-15.1 ) 02/23/21 03:20 Plt Count 119 10^3/cmm (130 -400) L 02/23/21 03:20 MPV 10.4 fL (7.4-10.4 ) 02/23/21 03:20 Neut % (Auto) 82.7 % 02/23/21 03:20 Lymph % (Auto) 9.5 % 02/23/21 03:20 [place] % (Auto) 7.4 % 02/23/21 03:20 Eos % (Auto) 0.0 % 02/23/21 03:20 Baso % (Auto) 0.1 % 02/23/21 03:20 Neut # (Auto) 5.94 10^3/uL (1.8 -7.7) 02/23/21 03:20 Lymph # (Auto) 0.7 10^3/uL (0.8- 4.8) L 02/23/21 03:20 [place] # (Auto) 0.5 10^3/uL (0.2- 0.9) 02/23/21 03:20 Eos # (Auto) 0.0 10^3/uL (0.0- 0.8) 02/23/21 03:20 Baso # (Auto) 0.0 10^3/uL (0.0- 0.1) 02/23/21 03:20 Nucleated RBC % (a uto) 0 % 02/23/21 03:20 Nucleated RBCs # 0.0 /100WBC 02/23/21 03:20 PT 15.60 SECONDS (12 .1-14.9) H 02/23/21 03:20 INR 1.20 (0.8-1.2) 02/23/21 03:20 APTT < 20.0 SECONDS (2 3.9-36.7) L 02/23/21 03:20 Fibrinogen 277 mg/dL (174-49 8) 02/23/21 03:20 Fibrin Degrad Prod ucts Pos, 10-40 ug/mL (NEG) H 02/23/21 03:20 D-Dimer 1.25 ug/mIFEU (0- 0.59) H 02/23/21 03:20 Specimen Type Arterial 02/23/21 04:45 Sample Site Not specified 02/22/21 04:45 ABG pH 7.38 (7.35-7.45) 02/23/21 04:45 ABG pCO2 41.6 mmHg (35-45) 02/23/21 04:45 ABG pO2 64.0 mmHg (80.0-1 00.0) L 02/23/21 04:45 ABG HCO3 24.5 mmol/L (22-2 6) 02/23/21 04:45 ABG O2 Saturation 98.5 02/20/21 10:00 ABG Base Excess -0.7 mmol/L (-2.0 -2.0) 02/23/21 04:45 Neeraj Test N/a 02/23/21 04:45 A-a O2 Gradient Not Reportable 02/20/21 10:00 Hematocrit 39.2 % (42-52) L 02/23/21 04:45 Hgb O2 Saturation 97.5 % (95-100) 02/20/21 10:00 Carboxyhemoglobin 0.4 %THgb (0.4-20 .1) 02/20/21 10:00 Methemoglobin 0.7 % (0.4-1.5) 02/20/21 10:00 Total Hemoglobin 14.5 g/dL (14-18) 02/20/21 10:00 Sodium 139.0 mmol/L (131 -143) 02/20/21 10:00 Potassium 3.0 mmol/L (3.5-5 .0) L 02/20/21 10:00 Glucose 115.0 mg/dL (70-1 15) 02/20/21 10:00 Ionized Calcium 1.1 mmol/L (1.1-1 .4) 02/20/21 10:00 O2 Delivery Device Vent 02/23/21 04:45 O2 Liters/Min 15.0 % 02/20/21 15:04 FiO2 40.0 % 02/23/21 04:45 Tidal Volume 0.50 02/23/21 04:45 PEEP 6.0 cmH20 02/23/21 04:[address] Magistrate ID Harkr 02/23/21 04:45 Sodium 140 mmol/L (136-1 45) 02/23/21 03:20 Potassium 3.7 mmol/L (3.5-5 .1) 02/23/21 03:20 Chloride 101 mmol/L (98-10 7) 02/23/21 03:20 Carbon Dioxide 23 mmol/L (22-29) 02/23/21 03:20 Anion Gap 19.7 (5-19) H 02/23/21 03:20 BUN 43 mg/dL (8-23) H 02/23/21 03:20 Creatinine 2.3 mg/dL (0.7-1. 2) H 02/23/21 03:20 GFR Calculation Not Reportable 02/23/21 03:20 Glucose 144 mg/dL (65-115 ) H 02/23/21 03:20 Calculated Osmolal ity 303 mOsm/kg (285- 295) H 02/23/21 03:20 Lactic Acid 1.1 mmol/L (0.5-2 .2) 02/20/21 15:14 Lactate 1.8 mmol/L (0.5-2 .2) 02/23/21 03:20 Calcium 7.7 mg/dL (8.5-10 .5) L 02/23/21 03:20 Phosphorus 4.6 mg/dL (2.5-4. 5) H D 02/23/21 03:20 Magnesium 2.0 mg/dL (1.7-2. 3) 02/23/21 03:20 Ferritin 569 ng/mL (30-400 ) H 02/23/21 03:20 Total Bilirubin 0.3 mg/dL (0.15-1 .2) 02/23/21 03:20 AST 17 U/L (0-40) 02/23/21 03:20 ALT 15 U/L (0-41) 02/23/21 03:20 Alkaline Phosphata se 33 IU/L (40-130) L 02/23/21 03:20 Ammonia 15 umol/L (16-60) L 02/23/21 03:20 Creatine Kinase 97 U/L (39-308) 02/23/21 03:20 Troponin T Baselin e 46 ng/L (0-15) H 02/20/21 11:42 Troponin T 120 Min mary 37.03 ng/L (0-15) H 02/20/21 15:14 Delta Troponin T -8.97 ABS# (0-10) L 02/20/21 15:14 Troponin T Hi Sens 6Hr 30.03 ng/L (0-15) H 02/20/21 20:13 Troponin T Hi Sens 6Hr Delta -7.00 ng/L (0-12) L 02/20/21 20:13 C-Reactive Protein 29.9 mg/L (0.0-4. 9) H 02/23/21 03:20 NT-Pro-B Natriuret Pep 573 pg/mL (0-450) H 02/23/21 03:20 NT-Pro-B Natriuret Pep 573 pg/mL (0-450) H 02/23/21 03:20 Total Protein 5.6 g/dL (6.6-8.7 ) L 02/23/21 03:20 Albumin 3.1 g/dL (3.5-5.2 ) L 02/23/21 03:20 Globulin 2.5 g/dL (1.3-4.6 ) 02/23/21 03:20 Lipase 16 U/L (13-60) 02/20/21 06:42 Procalcitonin 0.37 ng/mL (0-0.5 ) 02/23/21 03:20 TSH 0.20 uIU/mL (0.27 -4.20) L 02/20/21 15:14 Random Cortisol 8.36 ug/dL (2.47- 19.5) 02/20/21 06:42 Urine Color Yellow (Yellow) 02/20/21 09:16 Urine Appearance Clear (CLEAR) 02/20/21 09:16 Urine pH 6.5 (5-7) 02/20/21 09:16 Ur Specific Gravit y 1.010 (1.005-1.0 30) 02/20/21 09:16 Urine Protein Neg (Negative) 02/20/21 09:16 Urine Glucose (UA) Norm (Normal) 02/20/21 09:16 Urine Ketones Negative (Negati ve) 02/20/21 09:16 Urine Blood Neg (Negative) 02/20/21 09:16 Urine Nitrate Negative (Negati ve) 02/20/21 09:16 Urine Bilirubin Neg (Negative) 02/20/21 09:16 Urine Urobilinogen Norm mg/dL (Negat kourtney) 02/20/21 09:16 Ur Leukocyte Kim ase Negative (Negati ve) 02/20/21 09:16 Vancomycin Trough 28.8 ug/mL (10-15 ) H* 02/23/21 12:00 Random Vancomycin 32.9 ug/mL (20.0- 40.0) 02/23/21 03:20 Nasal/Oral COVID-1 9 PCR Not detected 02/20/21 09:17 SARS-CoV-2 Ag (Rap id) Negative (Negati ve) 02/20/21 09:17 Impressions Abdomen/Pelvis CT 02/20/21 06:48 IMPRESSION: 1. A small amount of ectopic gas is present in the gallbladder fossa. Interval cholecystectomy. Recommend correlation with the date of prior procedure (less than 1 week?). 2. Mild interval enlargement of noncalcified left lower lobe pulmonary nodule. Biopsy or PET/CT recommended. Fleischner Society recommendations not given due to the interval change. 3. Hepatic cirrhosis. 4. Prior cholecystectomy. 5. Right renal benign cysts. No follow-up imaging is recommended. 6. Left renal benign parapelvic cyst. No follow-up imaging is recommended. 7. Diverticulosis. 8. Appendicolith without evidence of appendicitis. 9. Chronic calcific prostatitis. COMMENTS: Consistent with the [place] [employer]'s Incidental Findings Committee white paper (J Am Aida Radiol 2018): Any incidental renal lesion less than 1 cm or classified as too small to characterize, or any incidental cystic renal lesion characterized as simple-appearing, is likely benign. No follow-up imaging is recommended for these lesions per consensus recommendations based on imaging criteria. Radiation Dose CTDIVOL = (mGy): DLP = 2105.26 (mGy-cm) ADDENDUM: 02/20/21 0937 THIS REPORT CONTAINS FINDINGS THAT MAY BE CRITICAL TO PATIENT CARE. The findings were verbally communicated by me to Monica Hewitt RN via telephone conference at 9:36 AM CDT on 02/20/2021. The findings were acknowledged and understood. Radiation Dose CTDIVOL = (mGy): DLP = 2105.26 (mGy-cm) ADDENDUM: 02/20/21 1449 THIS REPORT CONTAINS FINDINGS THAT MAY BE CRITICAL TO PATIENT CARE. The findings (and following addendum) were verbally communicated by me to Dr. Macario Cortez via telephone conference at 2:45 PM CDT on 02/20/2021. The findings were acknowledged and understood. ADDENDUM: Initial information given was that patient had recent cholecystectomy within a week prior. This appears to have been incorrect. There is also a small amount of fluid in the gallbladder fossa. A gallbladder fossa abscess is difficult to exclude. Additional considerations could include loculated confined fluid and gas from bowel perforation. There is mild mucosal hyperemia of the proximal duodenum (i.e. duodenitis) and possible slight duodenal cap deformity without gross ulceration. Radiation Dose CTDIVOL = (mGy): DLP = 2105.26 (mGy-cm) Chest CTA 02/20/21 09:33 IMPRESSION: 1. No pulmonary artery embolism identified. 2. Mild interval enlargement of noncalcified left lower lobe pulmonary nodule. Biopsy or PET/CT recommended. Fleischner Society recommendations not given due to the interval change. 3. Possible pulmonary arterial hypertension. Clinical correlation is recommended. 4. Bilateral pulmonary atelectasis as described. 5. Coronary atherosclerosis. 6 Please see the abdomen/pelvis CT report of the same date for additional findings. Radiation Dose CTDIVOL = (mGy): DLP = 551.95 (mGy-cm) ADDENDUM: 02/20/21 1449 THIS REPORT CONTAINS FINDINGS THAT MAY BE CRITICAL TO PATIENT CARE. The findings were verbally communicated by me to Dr. Macario Cortez via telephone conference at 2:45 PM CDT on 02/20/2021. The findings were acknowledged and understood. Radiation Dose CTDIVOL = (mGy): DLP = 551.95 (mGy-cm) Gallbladder Ultrasound 02/20/21 11:07 IMPRESSION: 1. Fatty infiltration of the liver. 2. Prior cholecystectomy. 3. Echogenic adipose is present in the gallbladder fossa (normal), no specific fluid collection or mass as visualized. Impression new. Please see the CT abdomen pelvis report of the same date. 4. Right renal benign cyst. No follow-up imaging is recommended. Venous Duplex 02/20/21 11:10 IMPRESSION: No evidence of deep vein thrombosis. Carotid Doppler Study 02/20/21 12:26 IMPRESSION: Study limitations as above. No hemodynamically significant stenosis by peak systolic velocity criteria. REFERENCES: SRU CRITERIA. The degree of internal carotid artery stenosis is based on criteria defined by the Society of Radiologists in Ultrasound (SRU). Normal is no stenosis. Mild is less than 50% stenosis. Moderate is 50-69% stenosis. Severe is greater than 69% stenosis to near occlusion. Near occlusion is a markedly narrowed lumen. Total occlusion is no detectable patent lumen. Head CT 02/22/21 11:12 IMPRESSION: 1. No evidence of intracranial hemorrhage or mass effect. 2. Moderate small vessel changes. Moderate parenchymal volume loss. 3. No acute intracranial findings. Chest X-Ray 02/23/21 07:00 Impression: 1. No change in bilateral patchy pulmonary opacities. 2. No change in multiple tubes. KUB X-Ray 02/23/21 07:00 Impression: 1. Nasogastric tube ends in stomach. 2. Moderate generalized ileus. Micro: Micro: Microbiology 02/21/21 07:40 Urine Culture - Fi nal Urine Catheterize d A&P Assessment and plan (1) Acute encephalopathy: Status: Acute (2) Pneumonia: Status: Acute Qualifiers: Pneumonia type: aspiration pneumonia Aspiration pneumonia type: due to vomit Laterality: bilateral Lung location: lower lobe of lung Qualified Code(s): J69.0 - Pneumonitis due to inhalation of food and vomit (3) Septic shock: Status: Acute (4) Acute respiratory failure with hypoxia: Status: Acute (5) REX (obstructive sleep apnea): Status: Acute (6) COPD (chronic obstructive pulmonary disease): Status: Acute Qualifiers: COPD type: unspecified COPD Qualified Code(s): J44.9 - Chronic obstructive pulmonary disease, unspecified (7) Lung nodule: Status: Acute (8) H/O brain surgery: Status: Acute (9) Renal insufficiency: Status: Acute (10) Hypothyroidism: Status: Acute Qualifiers: Hypothyroidism type: unspecified Qualified Code(s): E03.9 - Hypothyroidism, unspecified (11) Pulmonary hypertension: Status: Acute (12) Counseling regarding advanced directives and goals of care: Status: Acute #Altered mental status-likely secondary to seizure given history of pituitary surgery #Also reported a previous history of syncopal episodes, cannot rule out arrhythmia #Given Increasing left lower lobe Lung lesion-cannot rule out malignancy and brain mets -Currently patient is at baseline the night before his fall -Post fall noted patient to be confused and has urinary incontinence -Plan is to order an EEG -Carotid Doppler-No hemodynamically significant Stenosis -Head CT 02/22/2021: Did not show any Acute abnormalities -Seroquel 50 mg p.o. twice daily -We will start Keppra 500 mg twice daily? Ativan 2 mg every 6 hours as needed for seizures #Acute hypoxic respiratory failure-likely secondary to aspiration pneumonia #Had Hospital admission for a lingular pneumonia in August 2020; Also labs positive for rhinovirus #Patient diagnosed with COVID-19 pneumonia in April 2020 -did not require home oxygen during that admission. #Another admission in May 2020 for bacterial/viral pneumonia. - reported patient had episode of vomiting prior to this fall -Chest x-ray showed bilateral patchy pulmonary opacities -Currently tolerating breathing trial and patient is awake and following commands-plan is to extubate to BiPAP -DuoNeb every 4 scheduled nebulization -Currently on Linezolid/imipenem/Levaquin - Discontinue antibiotics after 7 days -All cultures negative so far #Multiple lung nodules stable since 2015 - CT May 2020: 0.5 cm nodule right middle lobe; unchanged. Similar 1.3 cm nodule left lower lobe stable since 2016 CT-no size changer 4 years-benign nodules - CT angiogram during this admission on 02/20/2021 showing mild and interval enlargement of left lower lobe anterior lateral basilar segment noncalcified pulmonary nodule 19.8 mm -Patient needs PET/CT as outpatient #Severe obstructive sleep apnea on PSG 09/01/2020 with AHI 34 -Ordered CPAP titration study In clinic as outpatient In December 2020 -Recommended BiPAP at nighttime #Obstructive lung disease-COPD in ex-smoker 1 PPD X 20 years quit 1999 -PFTs 07/15/2020:prebronchodilator spirometry is consistent with moderate restriction. Lung volumes are consistent with air trapping. The patient has nonspecific ventilatory limitation likely secondary to combination of obstru ctive and restrictive ventilatory defect. Gas exchange (DLCO) is normal. -previously was on Advair and albuterol but he never to use it and was noncompliant -Discharge with Trelegy 1 puff daily and follow-up in pulmonary clinic #History of pituitary Surgery-renal insufficiency and hypothyroidism -Currently on hydrocortisone 50 every 6 and off pressors -On levothyroxine 112MCG p.o. daily #Pulmonary hypertension-group 3 -Probable low normal RV systolic function and pulmonary artery pressure estimate 51 on echo 02/21/2021 - Unable to compare with echo June 2020- but reported a pulmonary artery pressure estimate is 34 and normal RV size and systolic function in June 2020 - CTA 02/20/2021 did not show any pulmonary embolism -Patient needs RHC to confirm pulmonary pressures -We will optimize management of COPD and REX; he was recommended titration polysomnogram which he did not get yet; previously was on Advair and albuterol but he never to use it and was noncompliant #Shock-resolved -suspected sepsis versus adrenal insufficiency -All cultures negative so far -Chest x-ray bibasilar infiltrates-suspicion for aspiration pneumonia related sepsis -Currently covered with linezolid and imipenem -Complete 7-day course and discontinue -Also blood pressures improved after starting on hydrocortisone 50 every 6 hours -There was a suspicion for source of infection in abdomen due to recent laparoscopic cholecystectomy-patient underwent diagnostic laparoscopy on the day of admission and was negative for any source of sepsis Discussed medical condition in detail with and daughter at bedside asked to make decision regarding reintubation but wanted DNR N.p.o. for today as it was just extubated-tomorrow bedside swallow evaluation Lovenox for DVT prophylaxis PPI for GERD and a prophylaxis Prognosis guarded Recommendations conveyed to hospitalist, RN, RT taking care of the patient Consult Attestations Medical Necessity Statement: Acute hypoxic respiratory failure secondary to aspiration pneumonia in patient with underlying COPD/REX/pulmonary hypertension- currently extubated and needs 2 nights for close clinical monitoring Time Spent in Patient Care: Greater than 35 minutes (>than 50% of time spent in counselling and/or direct pt care on unit) . Critical Care Time: The high probability of a clinically significant, sudden or life threatening deterioration of the patient's [neurological, pulmonary,] system(s) required my full and direct attention, intervention and personal m anagement. The critical care time is as shown. 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 New History Comprehensive Exam Comprehensive Medical Decision Making High Complexity Diagnoses Acute encephalopathy G93.40 Pneumonia J69.0 Pneumonia type: aspiration pneumonia Aspiration pneumonia type: due to vomit Laterality: bilateral Lung location: lower lobe of lung Septic shock A41.9; R65.21 Acute respiratory failure with hypoxia J96.01 REX (obstructive sleep apnea) G47.33 COPD (chronic obstructive pulmonary disease) J44.9 COPD type: unspecified COPD Lung nodule R91.1 H/O brain surgery Z98.890 Renal insufficiency N28.9 Hypothyroidism E03.9 Hypothyroidism type: unspecified Pulmonary hypertension I27.20 Counseling regarding advanced directives and goals of care Z71.89 Time Spent (min) 90
[2021-02-23] MEDS: atorvastatin 40 mg Tablet PO (20:39)
[2021-02-23] MEDS: haloperidol inj 5 mg/mL INJ 1 mL 1 MG IM (23:22)
[2021-02-24] VITALS (44 sets, daily range): BP systolic 95–186; BP diastolic 60–111; PULSE 54–91; RESP 14–26; O2SAT 84–98
--- NOTE | 2021-02-24 01:15 | PC.NURSE ---
notified of pt agitation. Dr ordered to raise precedex level to 1.2 as new max.
[2021-02-24] MEDS: ipratropium-albuterol 3 mL Neb INHALATION ×6 (01:50→20:58)
[2021-02-24] MEDS: dexmedeTOMIDine 0.9 % NaCL 400 MCG/100 ML PREMIX 20.64 MCG IV (01:59)
[2021-02-24] MEDS: hydrocortisone 100 mg/2 mL SDV 50 MG IVP ×3 (01:59→14:58)
[2021-02-24] MEDS: dexmedeTOMIDine 0.9 % NaCL 400 MCG/100 ML PREMIX 35.38 MCG IV ×2 (04:16→07:45)
[2021-02-24] MEDS: fentaNYL 50 mcg/mL INJ 2mL 25 MCG IVP (04:50)
--- NOTE | 2021-02-24 06:00 | ECG_ITS ---
[facility] Test Date: 2021-02-24 Pat Name: Rashid Bolivar Department: Room: ICU10 Gender: Male Social Service Agency Director: : 1935 Requested By: Macario Cortez Order Number: [id number] Jean MD: Jaspreet Luna M.D. Measurements Intervals [place] Rate: 59 P: 1 HI: 190 QRS: 19 QRSD: 124 T: 20 QT: 461 QTc: 457 Interpretive Statements SINUS BRADYCARDIA MODERATE INTRAVENTRICULAR CONDUCTION DELAY [110+ ms QRS DURATION] ST DEVIATION AND MODERATE T-WAVE ABNORMALITY, CONSIDER ANTEROLATERAL ISCHEMIA [-0.1+ mV T-WAVE IN V3-V6] Compared to ECG 02/23/2021 06:00:35 Intraventricular conduction delay now present Sinus rhythm no longer present Incomplete right bundle-branch block no longer present T-wave abnormality still present Possible ischemia still present Electronically Signed On 02-24-2021 20:40:02 CDT by Jaspreet Luna M.D. [id number]
[2021-02-24 06:32] LABS: Hematocrit 38.8 % (42.0-52.0); Hemoglobin 12.7 g/dL (11.7-16.6); Lymphocytes # 0.8 10^3/uL (0.8-4.8); Mean Corpuscular HGB Conc 32.7 g/dL (30.0-36.0); Mean Corpuscular Hemoglobin 30.4 pg (28.0-34.0); Mean Corpuscular Volume 92.8 fl (80-94); Mean Platelet Volume 10.4 fL (7.4-10.4); Monocytes # 0.4 10^3/uL (0.2-0.9); Monocytes % 7.2 %; Neutrophils # 4.76 10^3/uL (1.8-7.7); Neutrophils % 79.1 %; Nucleated Red Blood Cells % 0 %; Platelet Count 121 10^3/cmm (130-400); Red Blood Count 4.18 10^6/uL (4.1-5.3); Red Cell Distribution Width 13.9 % (12.1-15.1)
[2021-02-24 06:38] LABS: INR 1.17 (0.8-1.2)
[2021-02-24 06:43] LABS: Lactate (Lactic Acid level) 1.4 mmol/L (0.5-2.2)
--- NOTE | 2021-02-24 07:00 | XR_ITS ---
WS: [id number] Portable AP semiupright chest, 02/24/2021 Clinical Data: sob Comparison: Portable chest, 02/23/2021 Findings: The patchy bilateral pulmonary opacities have not changed. The heart remains the same. The endotracheal tube and nasogastric tube have been removed. A right subclavian catheter remains in posi tion. Monitor leads are on the chest wall. XR/XR chest 1V portable [id number] Impression: 1. No change in patchy bilateral pulmonary opacities. 2. Removal of endotracheal tube and nasogastric tube.
[2021-02-24 07:04] LABS: NT Pro B Type Natriuretic Pept 1316 pg/mL (0-450); Procalcitonin 0.16 ng/mL (0-0.5)
[2021-02-24 07:15] LABS: Alanine Aminotransferase 12 U/L (0-41); Albumin Level 3.3 g/dL (3.5-5.2); Alkaline Phosphatase 36 IU/L (40-130); Anion Gap 12.7 (5-19); Aspartate Amino Transferase 17 U/L (0-40); Blood Urea Nitrogen 33 mg/dL (8-23); C Reactive Protein 13.9 mg/L (0.0-4.9); Calcium 7.9 mg/dL (8.5-10.5); Carbon Dioxide 26 mmol/L (22-29); Chloride 105 mmol/L (98-107); Creatine Phosphokinase 130 U/L (39-308); Globulin 3.1 g/dL (1.3-4.6); Glucose 151 mg/dL (65-115); Magnesium 2.2 mg/dL (1.7-2.3); Osmolality Calculated 300 mOsm/kg (285-295); Phosphorus 3.5 mg/dL (2.5-4.5); Potassium 3.7 mmol/L (3.5-5.1); Sodium 140 mmol/L (136-145); Total Bilirubin 0.4 mg/dL (0.15-1.2); Total Protein 6.4 g/dL (6.6-8.7)
[2021-02-24] MEDS: linezolid premix 600 MG/300 ML PREMIX 300 MG IV ×2 (07:46→18:40)
--- NOTE | 2021-02-24 08:22 | XR_ITS ---
WS: [id number] KUB, AP portable supine, 02/24/2021 Clinical Data: constipation, possible ileus Comparison: KUB, 02/23/2021 Findings: No abnormal intraabdominal masses are seen. There is no evidence of obstruction. The nasogastric tube has been removed. There are vascular calcifications. There is air in the stomach . There is air in the colon. There are clips in the right upper quadrant. There is a levoscoliosis. XR/XR KUB portable [id number] Impression: Moderate generalized ileus.
[2021-02-24] MEDS: pantoprazole 40 mg SDV IVP ×2 (10:13→21:43)
[2021-02-24] MEDS: levothyroxine 112 mcg Tablet PO (11:04)
[2021-02-24] MEDS: lactulose oral liq 20 gm/30 mL UDC PO (11:05)
[2021-02-24] MEDS: levETIRAcetam 500 mg Tablet PO ×2 (11:05→18:03)
[2021-02-24] MEDS: aspirin 81 mg Chew Tablet PO (11:05)
[2021-02-24] MEDS: levofloxacin-dextrose 5 % 750 MG/150 ML PREMIX 100 MG IV (11:05)
--- NOTE | 2021-02-24 13:47 | PM.PN ---
Vitals/I&O/Wt Last Vital Signs Temp 98.1 F 02/23/21 12:00 Pulse 60 02/24/21 11:49 Resp 17 02/24/21 12:00 BP 131/100 02/24/21 12:00 Pulse Ox 91 02/24/21 12:00 02/23/21 02/24/21 02/24/21 22:59 06:59 14:59 Intake Total 524.578 / 751.013 345.359 / 1096.372 741.792 / 741.792 Output Total 750 / 750 950 / 1700 500 / 500 Balance -225.422 / 1.013 -604.641 / -603.628 241.792 / 241.792 Weight last 48 hrs Weight 260 lb Physical Exam Urinary Catheter Management^: Hawkins: Cath Placed During This Visit: yes Reason for Continuing Indwelling Catheter: Accurate Measurement of Urinary Output in Critically Ill Patients Urinary Catheter Date of Insertion: 02/20/21 Urinary Catheter Time of Insertion: 09:15 Data : 02/24/21 06:07 02/24/21 06:07 Micro: Microbiology 02/21/21 07:40 Urine Culture - Final Urine Catheterized Coding Level of Care Code Acute Dissolver Operator for Jose Rojas
--- NOTE | 2021-02-24 13:48 | PM.PN ---
Subjective Subjective: Interval history: -Patient seen at bedside today - yesterday night placed on BiPAP and patient was agitated and received Haldol and fentanyl push-very drowsy; also on Precedex drip -Saturating 94% on 2 L nasal cannula -Managed to taper down sedation-wake him up and out of bed to chair and incentive spirometry -Labs and imaging reviewed Medications: Reviewed: Yes Vitals/I&O/Wt Last Vital Signs Temp 98.1 F 02/23/21 12:00 Pulse 60 02/24/21 11:49 Resp 17 02/24/21 12:00 BP 131/100 02/24/21 12:00 Pulse Ox 91 02/24/21 12:00 02/23/21 02/24/21 02/24/21 22:59 06:59 14:59 Intake Total 524.578 / 751.013 345.359 / 1096.372 741.792 / 741.792 Output Total 750 / 750 950 / 1700 500 / 500 Balance -225.422 / 1.013 -604.641 / -603.628 241.792 / 241.792 Weight last 48 hrs Weight 260 lb Physical Exam Narrative: EXAM NARRATIVE: General: lying in bed, drowsy HEENT:NCAT, PERRLA, EOMI Neck: Supple Lungs: Reduced breath sounds both bases Heart: s1/s2, RRR Abd: soft, NT, ND, BS + Normoactive Extremities: No edema ARMOR OFFICER: moving all limbs and opening eyes but he is drowsy-secondary to medication SKIN: no rash Urinary Catheter Management^: Hawkins: Cath Placed During This Visit: yes Reason for Continuing Indwelling Catheter: Accurate Measurement of Urinary Output in Critically Ill Patients Urinary Catheter Date of Insertion: 02/20/21 Urinary Catheter Time of Insertion: 09:15 Data : 02/24/21 06:07 02/24/21 06:07 Other Labs: Laboratory Results WBC 6.0 10^3/uL (4.0-10.0) 02/24/21 06:07 Corrected WBC Cancelled 02/24/21 03:40 RBC 4.18 10^6/uL (4.1-5.3) 02/24/21 06:07 Hgb 12.7 g/dL (11.7-16.6) 02/24/21 06:07 Hct 38.8 % (42.0-52.0) L 02/24/21 06:07 MCV 92.8 fl (80-94) 02/24/21 06:07 MCH 30.4 pg (28.0-34.0) 02/24/21 06:07 MCHC 32.7 g/dL (30.0-36.0) 02/24/21 06:07 RDW 13.9 % (12.1-15.1) 02/24/21 06:07 Plt Count 121 10^3/cmm (130-400) L 02/24/21 06:07 MPV 10.4 fL (7.4-10.4) 02/24/21 06:07 Gran % Cancelled 02/24/21 03:40 Neut % (Auto) 79.1 % 02/24/21 06:07 Lymph % (Auto) 13.0 % 02/24/21 06:07 [place] % (Auto) 7.2 % 02/24/21 06:07 Eos % (Auto) 0.0 % 02/24/21 06:07 Baso % (Auto) 0.0 % 02/24/21 06:07 Neut # (Auto) 4.76 10^3/uL (1.8-7.7) 02/24/21 06:07 Lymph # (Auto) 0.8 10^3/uL (0.8-4.8) 02/24/21 06:07 [place] # (Auto) 0.4 10^3/uL (0.2-0.9) 02/24/21 06:07 Eos # (Auto) 0.0 10^3/uL (0.0-0.8) 02/24/21 06:07 Baso # (Auto) 0.0 10^3/uL (0.0-0.1) 02/24/21 06:07 Absolute Gran (auto) Cancelled 02/24/21 03:40 Nucleated RBC % (auto) 0 % 02/24/21 06:07 Nucleated RBCs # 0.0 /100WBC 02/24/21 06:07 PT 15.20 SECONDS (12.1-14.9) H 02/24/21 06:07 INR 1.17 (0.8-1.2) 02/24/21 06:07 APTT < 20.0 SECONDS (23.9-36.7) L 02/23/21 03:20 Fibrinogen 277 mg/dL (174-498) 02/23/21 03:20 Fibrin Degrad Products Pos, 10-40 ug/mL (NEG) H 02/23/21 03:20 D-Dimer 1.25 ug/mIFEU (0-0.59) H 02/23/21 03:20 Specimen Type Arterial 02/23/21 04:45 Sample Site Not Reportable 02/23/21 04:45 ABG pH 7.38 (7.35-7.45) 02/23/21 04:45 ABG pCO2 41.6 mmHg (35-45) 02/23/21 04:45 ABG pO2 64.0 mmHg (80.0-100.0) L 02/23/21 04:45 ABG HCO3 24.5 mmol/L (22-26) 02/23/21 04:45 ABG O2 Saturation 98.5 02/20/21 10:00 ABG Base Excess -0.7 mmol/L (-2.0-2.0) 02/23/21 04:45 Neeraj Test N/a 02/23/21 04:45 A-a O2 Gradient Not Reportable 02/20/21 10:00 Hematocrit 39.2 % (42-52) L 02/23/21 04:45 Hgb O2 Saturation 97.5 % (95-100) 02/20/21 10:00 Carboxyhemoglobin 0.4 %THgb (0.4-20.1) 02/20/21 10:00 Methemoglobin 0.7 % (0.4-1.5) 02/20/21 10:00 Total Hemoglobin 14.5 g/dL (14-18) 02/20/21 10:00 Sodium 139.0 mmol/L (131-143) 02/20/21 10:00 Potassium 3.0 mmol/L (3.5-5.0) L 02/20/21 10:00 Glucose 115.0 mg/dL (70-115) 02/20/21 10:00 Ionized Calcium 1.1 mmol/L (1.1-1.4) 02/20/21 10:00 O2 Delivery Device Vent 02/23/21 04:45 O2 Liters/Min 15.0 % 02/20/21 15:04 FiO2 40.0 % 02/23/21 04:45 Tidal Volume 0.50 02/23/21 04:45 PEEP 6.0 cmH20 02/23/21 04:45 Dairy Husbandry Teacher ID Mitchell 02/23/21 04:45 Sodium 140 mmol/L (136-145) 02/24/21 06:07 Potassium 3.7 mmol/L (3.5-5.1) 02/24/21 06:07 Chloride 105 mmol/L (98-107) 02/24/21 06:07 Carbon Dioxide 26 mmol/L (22-29) 02/24/21 06:07 Anion Gap 12.7 (5-19) 02/24/21 06:07 BUN 33 mg/dL (8-23) H 02/24/21 06:07 Creatinine 1.3 mg/dL (0.7-1.2) H 02/24/21 06:07 GFR Calculation Not Reportable 02/24/21 06:07 Glucose 151 mg/dL (65-115) H 02/24/21 06:07 Calculated Osmolality 300 mOsm/kg (285-295) H 02/24/21 06:07 Lactic Acid 1.1 mmol/L (0.5-2.2) 02/20/21 15:14 Lactate 1.4 mmol/L (0.5-2.2) 02/24/21 06:07 Calcium 7.9 mg/dL (8.5-10.5) L 02/24/21 06:07 Phosphorus 3.5 mg/dL (2.5-4.5) 02/24/21 06:07 Magnesium 2.2 mg/dL (1.7-2.3) 02/24/21 06:07 Ferritin 569 ng/mL (30-400) H 02/23/21 03:20 Total Bilirubin 0.4 mg/dL (0.15-1.2) 02/24/21 06:07 AST 17 U/L (0-40) 02/24/21 06:07 ALT 12 U/L (0-41) 02/24/21 06:07 Alkaline Phosphatase 36 IU/L (40-130) L 02/24/21 06:07 Ammonia 15 umol/L (16-60) L 02/23/21 03:20 Creatine Kinase 130 U/L (39-308) 02/24/21 06:07 Troponin T Baseline 46 ng/L (0-15) H 02/20/21 11:42 Troponin T 120 Minute 37.03 ng/L (0-15) H 02/20/21 15:14 Delta Troponin T -8.97 ABS# (0-10) L 02/20/21 15:14 Troponin T Hi Sens 6Hr 30.03 ng/L (0-15) H 02/20/21 20:13 Troponin T Hi Sens 6Hr Delta -7.00 ng/L (0-12) L 02/20/21 20:13 C-Reactive Protein 13.9 mg/L (0.0-4.9) H 02/24/21 06:07 NT-Pro-B Natriuret Pep 1316 pg/mL (0-450) H 02/24/21 06:07 Total Protein 6.4 g/dL (6.6-8.7) L 02/24/21 06:07 Albumin 3.3 g/dL (3.5-5.2) L 02/24/21 06:07 Globulin 3.1 g/dL (1.3-4.6) 02/24/21 06:07 Lipase 16 U/L (13-60) 02/20/21 06:42 Procalcitonin 0.16 ng/mL (0-0.5) 02/24/21 06:07 TSH 0.20 uIU/mL (0.27-4.20) L 02/20/21 15:14 Random Cortisol 8.36 ug/dL (2.47-19.5) 02/20/21 06:42 Urine Color Yellow (Yellow) 02/20/21 09:16 Urine Appearance Clear (CLEAR) 02/20/21 09:16 Urine pH 6.5 (5-7) 02/20/21 09:16 Ur Specific [place] 1.010 (1.005-1.030) 02/20/21 09:16 Urine Protein Neg (Negative) 02/20/21 09:16 Urine Glucose (UA) Norm (Normal) 02/20/21 09:16 Urine Ketones Negative (Negative) 02/20/21 09:16 Urine Blood Neg (Negative) 02/20/21 09:16 Urine Nitrate Negative (Negative) 02/20/21 09:16 Urine Bilirubin Neg (Negative) 02/20/21 09:16 Urine Urobilinogen Norm mg/dL (Negative) 02/20/21 09:16 Ur Leukocyte Esterase Negative (Negative) 02/20/21 09:16 Vancomycin Trough 28.8 ug/mL (10-15) H* 02/23/21 12:00 Random Vancomycin 32.9 ug/mL (20.0-40.0) 02/23/21 03:20 Nasal/Oral COVID-19 PCR Not detected 02/20/21 09:17 SARS-CoV-2 Ag (Rapid) Negative (Negative) 02/20/21 09:17 Impressions Abdomen/Pelvis CT 02/20/21 06:48 IMPRESSION: 1. A small amount of ectopic gas is present in the gallbladder fossa. Interval cholecystectomy. Recommend correlation with the date of prior procedure (less than 1 week?). 2. Mild interval enlargement of noncalcified left lower lobe pulmonary nodule. Biopsy or PET/CT recommended. Fleischner Society recommendations not given due to the interval change. 3. Hepatic cirrhosis. 4. Prior cholecystectomy. 5. Right renal benign cysts. No follow-up imaging is recommended. 6. Left renal benign parapelvic cyst. No follow-up imaging is recommended. 7. Diverticulosis. 8. Appendicolith without evidence of appendicitis. 9. Chronic calcific prostatitis. COMMENTS: Consistent with the [place] [employer]'s Incidental Findings Committee white paper (J Am Aida Radiol 2018): Any incidental renal lesion less than 1 cm or classified as too small to characterize, or any incidental cystic renal lesion characterized as simple-appearing, is likely benign. No follow-up imaging is recommended for these lesions per consensus recommendations based on imaging criteria. Radiation Dose CTDIVOL = (mGy): DLP = 2105.26 (mGy-cm) ADDENDUM: 02/20/21 0937 THIS REPORT CONTAINS FINDINGS THAT MAY BE CRITICAL TO PATIENT CARE. The findings were verbally communicated by me to Monica Hewitt RN via telephone conference at 9:36 AM CDT on 02/20/2021. The findings were acknowledged and understood. Radiation Dose CTDIVOL = (mGy): DLP = 2105.26 (mGy-cm) ADDENDUM: 02/20/21 1449 THIS REPORT CONTAINS FINDINGS THAT MAY BE CRITICAL TO PATIENT CARE. The findings (and following addendum) were verbally communicated by me to Dr. Macario Cortez via telephone conference at 2:45 PM CDT on 02/20/2021. The findings were acknowledged and understood. ADDENDUM: Initial information given was that patient had recent cholecystectomy within a week prior. This appears to have been incorrect. There is also a small amount of fluid in the gallbladder fossa. A gallbladder fossa abscess is difficult to exclude. Additional considerations could include loculated confined fluid and gas from bowel perforation. There is mild mucosal hyperemia of the proximal duodenum (i.e. duodenitis) and possible slight duodenal cap deformity without gross ulceration. Radiation Dose CTDIVOL = (mGy): DLP = 2105.26 (mGy-cm) Chest CTA 02/20/21 09:33 IMPRESSION: 1. No pulmonary artery embolism identified. 2. Mild interval enlargement of noncalcified left lower lobe pulmonary nodule. Biopsy or PET/CT recommended. Fleischner Society recommendations not given due to the interval change. 3. Possible pulmonary arterial hypertension. Clinical correlation is recommended. 4. Bilateral pulmonary atelectasis as described. 5. Coronary atherosclerosis. 6 Please see the abdomen/pelvis CT report of the same date for additional findings. Radiation Dose CTDIVOL = (mGy): DLP = 551.95 (mGy-cm) ADDENDUM: 02/20/21 1449 THIS REPORT CONTAINS FINDINGS THAT MAY BE CRITICAL TO PATIENT CARE. The findings were verbally communicated by me to Dr. Macario Cortez via telephone conference at 2:45 PM CDT on 02/20/2021. The findings were acknowledged and understood. Radiation Dose CTDIVOL = (mGy): DLP = 551.95 (mGy-cm) Gallbladder Ultrasound 02/20/21 11:07 IMPRESSION: 1. Fatty infiltration of the liver. 2. Prior cholecystectomy. 3. Echogenic adipose is present in the gallbladder fossa (normal), no specific fluid collection or mass as visualized. Impression new. Please see the CT abdomen pelvis report of the same date. 4. Right renal benign cyst. No follow-up imaging is recommended. Venous Duplex 02/20/21 11:10 IMPRESSION: No evidence of deep vein thrombosis. Carotid Doppler Study 02/20/21 12:26 IMPRESSION: Study limitations as above. No hemodynamically significant stenosis by peak systolic velocity criteria. REFERENCES: SRU CRITERIA. The degree of internal carotid artery stenosis is based on criteria defined by the Society of Radiologists in Ultrasound (SRU). Normal is no stenosis. Mild is less than 50% stenosis. Moderate is 50-69% stenosis. Severe is greater than 69% stenosis to near occlusion. Near occlusion is a markedly narrowed lumen. Total occlusion is no detectable patent lumen. Head CT 02/22/21 11:12 IMPRESSION: 1. No evidence of intracranial hemorrhage or mass effect. 2. Moderate small vessel changes. Moderate parenchymal volume loss. 3. No acute intracranial findings. Chest X-Ray 02/24/21 07:00 Impression: 1. No change in patchy bilateral pulmonary opacities. 2. Removal of endotracheal tube and nasogastric tube. KUB X-Ray 02/24/21 08:22 Impression: Moderate generalized ileus. Micro: Microbiology 02/21/21 07:40 Urine Culture - Final Urine Catheterized A&P Assessment and plan (1) Acute encephalopathy: Status: Acute (2) Pneumonia: Status: Acute Qualifiers: Pneumonia type: aspiration pneumonia Aspiration pneumonia type: due to vomit Laterality: bilateral Lung location: lower lobe of lung Qualified Code(s): J69.0 - Pneumonitis due to inhalation of food and vomit (3) Septic shock: Status: Acute (4) Acute respiratory failure with hypoxia: Status: Acute (5) REX (obstructive sleep apnea): Status: Acute (6) COPD (chronic obstructive pulmonary disease): Status: Acute Qualifiers: COPD type: unspecified COPD Qualified Code(s): J44.9 - Chronic obstructive pulmonary disease, unspecified (7) Lung nodule: Status: Acute (8) H/O brain surgery: Status: Acute (9) Renal insufficiency: Status: Acute (10) Hypothyroidism: Status: Acute Qualifiers: Hypothyroidism type: unspecified Qualified Code(s): E03.9 - Hypothyroidism, unspecified (11) Pulmonary hypertension: Status: Acute (12) Counseling regarding advanced directives and goals of care: Status: Acute #Altered mental status-likely secondary to seizure given history of pituitary surgery #Also reported a previous history of syncopal episodes, cannot rule out arrhythmia #Given Increasing left lower lobe Lung lesion-cannot rule out malignancy and brain mets - reported patient is at baseline the night before his fall -Post fall noted patient to be confused and has urinary incontinence -Plan is to obtain EEG -Carotid Doppler-No hemodynamically significant Stenosis -Head CT 02/22/2021: Did not show any Acute abnormalities -Seroquel 50 mg p.o. twice daily -On Keppra 500 mg twice daily? Ativan 2 mg every 6 hours as needed for seizures -Patient is still drowsy-received 1 dose of Haldol and fentanyl yesterday night for agitation and currently on Precedex drip -I will reduce the dose to 25 at bedtime and plan is to taper off sedation and wake him up #Acute hypoxic respiratory failure-likely secondary to aspiration pneumonia #Had Hospital admission for a lingular pneumonia in August 2020; Also labs positive for rhinovirus #Patient diagnosed with COVID-19 pneumonia in April 2020 -did not require home oxygen during that admission. #Another admission in May 2020 for bacterial/viral pneumonia. - reported patient had episode of vomiting prior to this fall -Chest x-ray showed bilateral patchy pulmonary opacities -Currently tolerating breathing trial and patient is awake and following commands-plan is to extubate to BiPAP -DuoNeb every 4 scheduled nebulization -Currently on Linezolid/imipenem/Levaquin - Discontinue antibiotics after 7 days -All cultures negative so far -Extubated 02/24/2021 and currently on 2 L nasal cannula saturating 94% #Multiple lung nodules stable since 2016 - CT May 2020: 0.5 cm nodule right middle lobe; unchanged. Similar 1.3 cm nodule left lower lobe stable since 2016 CT-no exchange teller 4 years-benign nodules - CT angiogram during this admission on 02/20/2021 showing mild and interval enlargement of left lower lobe anterior lateral basilar segment noncalcified pulmonary nodule 19.8 mm -Patient needs PET/CT as outpatient #Severe obstructive sleep apnea on PSG 09/01/2020 with AHI 34 -Ordered CPAP titration study In clinic as outpatient In December 2020 -Recommended CPAP/BiPAP at nighttime #Obstructive lung disease-COPD in ex-smoker 1 PPD X 20 years quit 1999 -PFTs 07/15/2020:prebronchodilator spirometry is consistent with moderate restriction. Lung volumes are consistent with air trapping. The patient has nonspecific ventilatory limitation likely secondary to combination of obstructive and restrictive ventilatory defect. Gas exchange (DLCO) is normal. -previously was on Advair and albuterol but he never to use it and was noncompliant -Discharge with Trelegy 1 puff daily and follow-up in pulmonary clinic #History of pituitary Surgery-renal insufficiency and hypothyroidism -Currently on hydrocortisone 50 every 6 and off pressors -On levothyroxine 112MCG p.o. daily #Pulmonary hypertension-group 3 -Probable low normal RV systolic function and pulmonary artery pressure estimate 51 on echo 02/21/2021 - Unable to compare with echo June 2020- but reported a pulmonary artery pressure estimate is 34 and normal RV size and systolic function in June 2020 - CTA 02/20/2021 did not show any pulmonary embolism -Patient needs RHC to confirm pulmonary pressures -We will optimize management of COPD and REX; he was recommended titration polysomnogram which he did not get yet; previously was on Advair and albuterol but he never to use it and was noncompliant #Shock-resolved -suspected sepsis versus adrenal insufficiency -All cultures negative so far -Chest x-ray bibasilar infiltrates-suspicion for aspiration pneumonia related sepsis -Currently covered with linezolid and imipenem -Complete 7-day course and discontinue -Also blood pressures improved after starting on hydrocortisone 50 every 6 hours -There was a suspicion for source of infection in abdomen due to recent laparoscopic cholecystectomy-patient underwent diagnostic laparoscopy on the day of admission and was negative for any source of sepsis Discussed medical condition in detail with and daughter at bedside asked to make decision regarding reintubation but wanted DNR N.p.o. for today as it was just extubated-and still drowsy due to medication bedside swallow evaluation Lovenox for DVT prophylaxis PPI for GERD and a prophylaxis Prognosis guarded Recommendations conveyed to hospitalist, RN, RT taking care of the patient Attestations Medical Necessity Statement*: Patient requires hospitalization for acute respiratory failure secondary to pneumonia Time Spent in Patient Care: Greater than 35 minutes (>than 50% of time spent in counselling and/or direct pt care on unit). Critical Care Time: The high probability of a clinically significant, sudden or life threatening deterioration of the patient's [respiratory, neurological] system(s) required my full and direct attention, intervention and personal management. The critical care time is as shown. This time is in addition to time spent performing any reported procedures but includes the following: [x] Data and vital sign review and interpretation [x] Patient assessment, examination and intervention [x] Documentation [x] Medication orders and management Critical Care Time (min): 45 Coding Level of Care Code Established Pt Acute Plant Maintenance Supervisor for Chg Fwd Patient Type Established History Comprehensive Exam Comprehensive Medical Decision Making High Complexity Diagnoses Acute encephalopathy G93.40 Pneumonia J69.0 Pneumonia type: aspiration pneumonia Aspiration pneumonia type: due to vomit Laterality: bilateral Lung location: lower lobe of lung Septic shock A41.9; R65.21 Acute respiratory failure with hypoxia J96.01 REX (obstructive sleep apnea) G47.33 COPD (chronic obstructive pulmonary disease) J44.9 COPD type: unspecified COPD Lung nodule R91.1 H/O brain surgery Z98.890 Renal insufficiency N28.9 Hypothyroidism E03.9 Hypothyroidism type: unspecified Pulmonary hypertension I27.20 Counseling regarding advanced directives and goals of care Z71.89 Time Spent (min) 45
--- NOTE | 2021-02-24 15:31 | PC.NUTR ---
Nutrition follow up: Extubated, swallow eval complete. Recommend advance diet as tolerated to mechanical soft diet with regular liquids, per DYE MACHINE OPERATOR evaluation. Recommend provide preferences as appropriate and encourage gradual increase in intake, given 5 [address]PO. See full RD assessment for further details.
--- NOTE | 2021-02-24 15:33 | PM.PN ---
Subjective Subjective: Interval history: Yesterday patient was successfully extubated on 3 to 4 L nasal cannula, was at bedside, patient followed commands, was a bit confused alert to person, to place, not to time, he had complaints of some shortness of breath, but no other complaints at, discussed with and concerns for aspiration pneumonia with a underlying seizure episode, the etiology of the seizure is unknown, will do a further work-up when patient is more stable, I advised that he does have a risk of reintubation in the next 24 to 72 hours, will continue monitor sleep closely in ICU Patient was seen this morning, he had episodes of agitation and confusion overnight, requiring fentanyl, Haldol, was also placed on BiPAP, this morning he is quite sleepy and groggy, does awaken, but falls back asleep, currently is on Precedex drip, afebrile overnight, normotensive, on 2 L, Vitals/I&O/Wt Last Vital Signs Temp 98.1 F 02/23/21 12:00 Pulse 68 02/24/21 15:29 Resp 17 02/24/21 15:13 BP 131/100 02/24/21 12:00 Pulse Ox 95 02/24/21 15:13 02/24/21 02/24/21 02/24/21 06:59 14:59 22:59 Intake Total 345.359 / 1096.372 741.792 / 741.792 Output Total 950 / 1700 500 / 500 Balance -604.641 / -603.628 241.792 / 241.792 Weight last 48 hrs Weight 117.934 kg Physical Exam Narrative: EXAM NARRATIVE: Sleepy, groggy, does awaken Eye: COMMON NORMALS: Equal, round and reactive pupils present PUPIL: Yes Equal, round and reactive pupils present Resp: COMMON NORMALS: normal respiratory effort, No retractions, No use of accessory muscles and clear to auscultation bilaterally AUSCULTATION: clear to auscultation bilaterally Cardio: COMMON NORMALS: regular rate, regular rhythm, S1 normal heart sound present and S2 normal heart sound present RATE: regular rate RHYTHM: regular rhythm HEART SOUNDS: S1 normal heart sound present and S2 normal heart sound present GI: COMMON NORMALS: Normal to inspection, nondistended, normoactive bowel sounds present and Soft to palpation INSPECTION: Yes abdominal distension PALPATION: Yes Soft to palpation : COMMON NORMALS: Yes no CVA tenderness BLADDER/KIDNEY EXAM: Yes no CVA tenderness Back/Pelvis: COMMON NORMALS: no CVA tenderness Extremity: COMMON NORMALS: no pedal edema Urinary Catheter Management^: Hawkins: Cath Placed During This Visit: yes Reason for Continuing Indwelling Catheter: Accurate Measurement of Urinary Output in Critically Ill Patients Urinary Catheter Date of Insertion: 02/20/21 Urinary Catheter Time of Insertion: 09:15 Data : 02/24/21 06:07 02/24/21 06:07 A&P Assessment and plan (1) Acute respiratory failure with hypoxia: Acute respiratory failure with hypoxia: -Secondary to bilateral lower lobe pneumonia, aspiration pneumonia diastolic CHF -With acute encephalopathy, persisting with concerns for underlying dementia and sundowning -With septic shock, resolved -CT angiogram of the chest no pulmonary embolism identified, mild interval enlargement of noncalcified left lower lobe pulmonary nodule, possible pulmonary arterial hypertension, bilateral pulmonary atelectasis, coronary arthrosclerosis, -Venous ultrasound negative for DVT -CT abdomen and pelvis: 1. A small amount of ectopic gas is present in the gallbladder fossa. Interval cholecystectomy. Recommend correlation with the date of prior procedure (less than 1 week?). 2. Mild interval enlargement of noncalcified left lower lobe pulmonary nodule. Biopsy or PET/CT recommended. Fleischner Society recommendations not given due to the interval change. 3. Hepatic cirrhosis. 4. Prior cholecystectomy. 5. Right renal benign cysts. No follow-up imaging is recommended. 6. Left renal benign parapelvic cyst. No follow-up imaging is recommended. 7. Diverticulosis. 8. Appendicolith without evidence of appendicitis. 9. Chronic calcific prostatitis. -Rapid Covid negative, Covid PCR pending -UA unremarkable for UTI -Sepsis criteria met on admission, hypotensive, tachycardia, respiratory 20-30, T-max 103.5, and 12 L nonrebreather -Baseline troponin 46, EKG shows sinus tachycardia with ST depressions in lateral leads, BNP 4469 -Cardiac echocardiogram1. This is a technically difficult study. 2. Normal left ventricular cavity size. Normal left ventricular systolic function. Left ventricular ejection fraction is estimated at 55 %. Study is inadequate for estimation of regional wall motion abnormality. Abnormal septal motion. 3. Probably low normal right ventricular systolic function. 4. Valves grossly appear normal. 5. Pulmonary artery pressure estimated at 51 mmHg. 6. Direct comparison to previous study dated 07/14/2020 is not possible given quality of the study. -Carotid artery ultrasound no hemodynamically significant stenosis -CT scan showed air in the gallbladder fossa, status post diagnostic laparoscopy, no significant findings except lysis of adhesions -Chest x-ray this morning shows patchy opacities present in the left lower hemithorax is bilaterally, left hemidiaphragm is obscured possibly secondary to left pleural effusion PLAN: -Extubated, currently on nasal cannula -Can use BiPAP during the night -Wean Precedex -Needs to sit up in bed, hold sedating medications -Continue broad-spectrum antibiotic therapy, v on Zyvox, Primaxin, Levaquin -Creatinine down to 1.3, holding diuretics, concerns for possible vancomycin induced nephrotoxicity, monitor urine output, hold nephrotoxic agents -Monitor respiratory status closely, wean oxygen as tolerated -Stress dose steroids, decrease hydrocortisone to 50 every 12 hours -Monitor urine output, creatinine, monitor potassium -Abdomen is distended, has not had a bowel movement, KUB showing generalized ileus, keep n.p.o. start bowel regimen -Continue home levothyroxine -Continue aspirin, statin -COVID-19 precautions, Covid PCR negative -Lovenox for DVT prophylaxis -Protonix for GI prophylaxis -Patient is a DNR, is okay with intubation -Repeat CT of the head no acute stroke -For seizure on Keppra 500 twice daily -It is still certainly unclear what had led to this acute event, likely a seizure leading to aspiration event leading to pneumonia, according to patient was in good health, until he fell out of bed, down to the emergency room I did not detect any focal neurologic deficits, no slurring of speech, no facial droop, he was confused, but could answer basic questions, could follow basic commands such as squeezing my fingers, initial CT of the head was negative, repeat CT of the head is also negative, will consider further imaging including CTA based on creatinine, -Certainly other possibilities that patient could have had a arrhythmic event, or seizures, will order EEG Status: Acute (2) Septic shock: Status: Acute (3) Pneumonia: Status: Acute Qualifiers: Pneumonia type: aspiration pneumonia Aspiration pneumonia type: due to vomit Laterality: bilateral Lung location: lower lobe of lung Qualified Code(s): J69.0 - Pneumonitis due to inhalation of food and vomit (4) NSVT (nonsustained ventricular tachycardia): Status: Acute (5) Hypothyroidism: Status: Acute Qualifiers: Hypothyroidism type: unspecified Qualified Code(s): E03.9 - Hypothyroidism, unspecified (6) Hypertension: Status: Acute Qualifiers: Hypertension type: essential hypertension Qualified Code(s): I10 - Essential (primary) hypertension (7) REX (obstructive sleep apnea): Status: Acute (8) PVD (peripheral vascular disease): Status: Acute (9) CHF (congestive heart failure): Status: Acute (10) NSTEMI (non-ST elevated myocardial infarction): Status: Acute (11) Acute encephalopathy: Status: Acute Attestations Medical Necessity Statement*: Patient requires hospitalization for acute respiratory failure with hypoxia started to aspiration, Coding Level of Care Code Acute 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 [facility] Fwd Diagnoses Acute respiratory failure with hypoxia J96.01 Septic shock A41.9; R65.21 Pneumonia J69.0 Pneumonia type: aspiration pneumonia Aspiration pneumonia type: due to vomit Laterality: bilateral Lung location: lower lobe of lung NSVT (nonsustained ventricular tachycardia) I47.2 Hypothyroidism E03.9 Hypothyroidism type: unspecified Hypertension I10 Hypertension type: essential hypertension REX (obstructive sleep apnea) G47.33 PVD (peripheral vascular disease) I73.9 CHF (congestive heart failure) I50.9 NSTEMI (non-ST elevated myocardial infarction) I21.4 Acute encephalopathy G93.40
[2021-02-24] MEDS: enoxaparin 40 mg/0.4 mL Syringe SUBCUT (15:59)
[2021-02-24] MEDS: docusate sodium 100 mg Capsule PO (15:59)
--- NOTE | 2021-02-24 17:59 | PC.RESP ---
PULMONARY REHAB INFORMATION SENT TO PATIENT.
[2021-02-24] MEDS: atorvastatin 40 mg Tablet PO (21:43)
[2021-02-25] VITALS (30 sets, daily range): BP systolic 143–168; BP diastolic 72–89; PULSE 73–89; RESP 16–31; TEMP 36.5–36.9; O2SAT 87–95
[2021-02-25] MEDS: ipratropium-albuterol 3 mL Neb INHALATION ×6 (00:44→22:01)
[2021-02-25] MEDS: hydrocortisone 100 mg/2 mL SDV 50 MG IVP ×2 (02:27→13:50)
[2021-02-25 03:56] LABS: Basophils % 0.2 %; Hemoglobin 12.8 g/dL (11.7-16.6); Lymphocytes # 1.6 10^3/uL (0.8-4.8); Lymphocytes % 15.9 %; Mean Corpuscular HGB Conc 32.8 g/dL (30.0-36.0); Mean Corpuscular Volume 94.4 fl (80-94); Mean Platelet Volume 10.2 fL (7.4-10.4); Monocytes # 0.9 10^3/uL (0.2-0.9); Monocytes % 9.5 %; Neutrophils # 7.16 10^3/uL (1.8-7.7); Neutrophils % 73.6 %; Nucleated Red Blood Cells % 0 %; Platelet Count 145 10^3/cmm (130-400); Red Blood Count 4.13 10^6/uL (4.1-5.3); White Blood Count 9.7 10^3/uL (4.0-10.0)
[2021-02-25 04:35] LABS: Alanine Aminotransferase 13 U/L (0-41); Albumin Level 3.2 g/dL (3.5-5.2); Alkaline Phosphatase 35 IU/L (40-130); Anion Gap 13.3 (5-19); Aspartate Amino Transferase 24 U/L (0-40); Blood Urea Nitrogen 26 mg/dL (8-23); C Reactive Protein 8.8 mg/L (0.0-4.9); Calcium 7.9 mg/dL (8.5-10.5); Carbon Dioxide 25 mmol/L (22-29); Chloride 108 mmol/L (98-107); Globulin 2.8 g/dL (1.3-4.6); Glucose 102 mg/dL (65-115); Osmolality Calculated 301 mOsm/kg (285-295); Phosphorus 2.2 mg/dL (2.5-4.5); Potassium 3.3 mmol/L (3.5-5.1); Sodium 143 mmol/L (136-145); Total Bilirubin 0.6 mg/dL (0.15-1.2)
[2021-02-25 04:39] LABS: NT Pro B Type Natriuretic Pept 3082 pg/mL (0-450); Procalcitonin 0.12 ng/mL (0-0.5)
[2021-02-25] MEDS: linezolid premix 600 MG/300 ML PREMIX 300 MG IV ×2 (08:00→17:59)
[2021-02-25] MEDS: levothyroxine 112 mcg Tablet PO (08:00)
[2021-02-25] MEDS: pantoprazole 40 mg SDV IVP (09:35)
[2021-02-25] MEDS: levETIRAcetam 500 mg Tablet PO ×2 (09:35→17:59)
[2021-02-25] MEDS: aspirin 81 mg Chew Tablet PO (09:35)
[2021-02-25] MEDS: potassium chloride ER 20 mEq Tablet 40 MEQ PO (11:20)
--- NOTE | 2021-02-25 12:57 | PM.PN ---
Subjective Subjective: Interval history: Patient was seen this morning, he is alert to person, to place, not to time, follows all commands, he is not sure exactly what has happened, but he feels a lot better, denies a headache, blurry vision, no nausea, no vomiting, no falls, he tells me that he had large bowel movement this morning, he is hungry Vitals/I&O/Wt Last Vital Signs Temp 98.1 F 02/23/21 12:00 Pulse 74 02/25/21 12:48 Resp 16 02/25/21 12:46 BP 155/87 02/25/21 08:00 Pulse Ox 94 02/25/21 12:46 02/24/21 02/25/21 02/25/21 22:59 06:59 14:59 Intake Total 408.208 / 1150.000 525 / 1675.000 300 / 300 Output Total 400 / 900 850 / 1750 Balance 8.208 / 250.000 -325 / -75.000 300 / 300 Physical Exam Const: COMMON NORMALS: no acute distress and patient oriented x3 Resp: COMMON NORMALS: normal respiratory effort, No retractions, No use of accessory muscles and clear to auscultation bilaterally AUSCULTATION: clear to auscultation bilaterally Cardio: COMMON NORMALS: regular rate, regular rhythm, S1 normal heart sound present and S2 normal heart sound present RATE: regular rate RHYTHM: regular rhythm HEART SOUNDS: S1 normal heart sound present and S2 normal heart sound present GI: COMMON NORMALS: Normal to inspection, nondistended, normoactive bowel sounds present, Soft to palpation and non-tender PALPATION: Yes Soft to palpation Extremity: COMMON NORMALS: no pedal edema Neuro: COMMON NORMALS: patient oriented x3 Urinary Catheter Management^: Hawkins: Cath Placed During This Visit: yes Reason for Continuing Indwelling Catheter: Accurate Measurement of Urinary Output in Critically Ill Patients Urinary Catheter Date of Insertion: 02/20/21 Urinary Catheter Time of Insertion: 09:15 Data : 02/25/21 03:40 02/25/21 03:40 Micro: Microbiology 02/20/21 06:57 Blood Culture - Final Blood NO GROWTH AFTER 5 DAYS 02/20/21 06:42 Blood Culture - Final Blood NO GROWTH AFTER 5 DAYS A&P Assessment and plan (1) Acute respiratory failure with hypoxia: Acute respiratory failure with hypoxia: -Secondary to bilateral lower lobe pneumonia, aspiration pneumonia diastolic CHF -With acute encephalopathy, persisting with concerns for underlying dementia and sundowning -With septic shock, resolved -CT angiogram of the chest no pulmonary embolism identified, mild interval enlargement of noncalcified left lower lobe pulmonary nodule, possible pulmonary arterial hypertension, bilateral pulmonary atelectasis, coronary arthrosclerosis, -Venous ultrasound negative for DVT -CT abdomen and pelvis: 1. A small amount of ectopic gas is present in the gallbladder fossa. Interval cholecystectomy. Recommend correlation with the date of prior procedure (less than 1 week?). 2. Mild interval enlargement of noncalcified left lower lobe pulmonary nodule. Biopsy or PET/CT recommended. Fleischner Society recommendations not given due to the interval change. 3. Hepatic cirrhosis. 4. Prior cholecystectomy. 5. Right renal benign cysts. No follow-up imaging is recommended. 6. Left renal benign parapelvic cyst. No follow-up imaging is recommended. 7. Diverticulosis. 8. Appendicolith without evidence of appendicitis. 9. Chronic calcific prostatitis. -Rapid Covid negative, Covid PCR pending -UA unremarkable for UTI -Sepsis criteria met on admission, hypotensive, tachycardia, respiratory 20-30, T-max 103.5, and 12 L nonrebreather -Baseline troponin 46, EKG shows sinus tachycardia with ST depressions in lateral leads, BNP 4469 -Cardiac echocardiogram1. This is a technically difficult study. 2. Normal left ventricular cavity size. Normal left ventricular systolic function. Left ventricular ejection fraction is estimated at 55 %. Study is inadequate for estimation of regional wall motion abnormality. Abnormal septal motion. 3. Probably low normal right ventricular systolic function. 4. Valves grossly appear normal. 5. Pulmonary artery pressure estimated at 51 mmHg. 6. Direct comparison to previous study dated 07/14/2020 is not possible given quality of the study. -Carotid artery ultrasound no hemodynamically significant stenosis -CT scan showed air in the gallbladder fossa, status post diagnostic laparoscopy, no significant findings except lysis of adhesions PLAN: -Currently doing well on 2 L nasal cannula, will move to second floor -Can use BiPAP during the night -Needs to sit up in bed, hold sedating medications -Continue broad-spectrum antibiotic therapy, de-escalate antibiotic therapy to Zyvox, and Zosyn -Creatinine down to 1.1, holding diuretics, concerns for possible vancomycin induced nephrotoxicity, monitor urine output, hold nephrotoxic agents -Monitor respiratory status closely, wean oxygen as tolerated -Stress dose steroids, decrease hydrocortisone to 50 every 24 hours, decrease Neurontin -Monitor urine output, creatinine, monitor potassium -had a bowel movement, continue bowel regimen, mechanical soft diet -Continue home levothyroxine -Continue aspirin, statin -COVID-19 precautions, Covid PCR negative -Lovenox for DVT prophylaxis -Protonix for GI prophylaxis -Patient is a DNR, is okay with intubation -Repeat CT of the head no acute stroke -For seizure on Keppra 500 twice daily -It is still certainly unclear what had led to this acute event, likely a seizure leading to aspiration event leading to pneumonia, according to patient was in good health, until he fell out of bed, down to the emergency room I did not detect any focal neurologic deficits, no slurring of speech, no facial droop, he was confused, but could answer basic questions, could follow basic commands such as squeezing my fingers, initial CT of the head was negative, repeat CT of the head is also negative, will consider further imaging including CTA based on creatinine, -Certainly other possibilities that patient could have had a arrhythmic event, or seizures, will order EEG and MRI -PT OT Status: Acute (2) Septic shock: Status: Acute (3) Pneumonia: Status: Acute Qualifiers: Pneumonia type: aspiration pneumonia Aspiration pneumonia type: due to vomit Laterality: bilateral Lung location: lower lobe of lung Qualified Code(s): J69.0 - Pneumonitis due to inhalation of food and vomit (4) NSVT (nonsustained ventricular tachycardia): Status: Acute (5) Hypothyroidism: Status: Acute Qualifiers: Hypothyroidism type: unspecified Qualified Code(s): E03.9 - Hypothyroidism, unspecified (6) Hypertension: Status: Acute Qualifiers: Hypertension type: essential hypertension Qualified Code(s): I10 - Essential (primary) hypertension (7) REX (obstructive sleep apnea): Status: Acute (8) PVD (peripheral vascular disease): Status: Acute (9) CHF (congestive heart failure): Status: Acute (10) NSTEMI (non-ST elevated myocardial infarction): Status: Acute (11) Acute encephalopathy: Status: Acute Attestations Medical Necessity Statement*: Patient request hospitalist for acute respiratory failure sec to aspiration event, seizures, deconditioning Coding Level of Care Code Acute 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
[2021-02-25] MEDS: enoxaparin 40 mg/0.4 mL Syringe SUBCUT (13:50)
[2021-02-25] MEDS: piperacillin-tazobactam 3.375 GM in sodium chloride 0.9% (plus) 50 ML IV ×2 (13:50→20:55)
--- NOTE | 2021-02-25 14:10 | PC.NURSE ---
Report called to JOANN Miguel. No further questions. Patient taken to 270, belongings with patient. at bedside.
[2021-02-25] MEDS: atorvastatin 40 mg Tablet PO (20:55)
[2021-02-25] MEDS: lactulose oral liq 20 gm/30 mL UDC PO (20:55)
[2021-02-26] VITALS (19 sets, daily range): BP systolic 127–185; BP diastolic 63–91; PULSE 66–79; RESP 16–21; TEMP 36.5–36.9; O2SAT 76–99
[2021-02-26] MEDS: ipratropium-albuterol 3 mL Neb INHALATION ×6 (00:17→20:39)
[2021-02-26] MEDS: piperacillin-tazobactam 3.375 GM in sodium chloride 0.9% (plus) 50 ML IV ×3 (04:39→20:48)
[2021-02-26 07:34] LABS: Basophils % 0.3 %; Hematocrit 38.3 % (42.0-52.0); Hemoglobin 12.9 g/dL (11.7-16.6); Lymphocytes # 2.4 10^3/uL (0.8-4.8); Lymphocytes % 25.3 %; Mean Corpuscular HGB Conc 33.7 g/dL (30.0-36.0); Mean Corpuscular Hemoglobin 30.9 pg (28.0-34.0); Mean Corpuscular Volume 91.8 fl (80-94); Mean Platelet Volume 11.1 fL (7.4-10.4); Monocytes % 10.2 %; Neutrophils # 5.95 10^3/uL (1.8-7.7); Neutrophils % 62.6 %; Nucleated Red Blood Cells % 0 %; Platelet Count 149 10^3/cmm (130-400); Red Blood Count 4.17 10^6/uL (4.1-5.3); Red Cell Distribution Width 13.8 % (12.1-15.1); White Blood Count 9.5 10^3/uL (4.0-10.0)
[2021-02-26 07:40] LABS: Alanine Aminotransferase 12 U/L (0-41); Albumin Level 3.1 g/dL (3.5-5.2); Alkaline Phosphatase 38 IU/L (40-130); Anion Gap 14.2 (5-19); Aspartate Amino Transferase 26 U/L (0-40); Blood Urea Nitrogen 22 mg/dL (8-23); C Reactive Protein 8.1 mg/L (0.0-4.9); Carbon Dioxide 24 mmol/L (22-29); Chloride 106 mmol/L (98-107); Creatinine Clr Calc Pharmacy 64.3747; Globulin 2.5 g/dL (1.3-4.6); Glucose 88 mg/dL (65-115); Magnesium 2.1 mg/dL (1.7-2.3); Osmolality Calculated 295 mOsm/kg (285-295); Phosphorus 2.1 mg/dL (2.5-4.5); Potassium 3.2 mmol/L (3.5-5.1); Sodium 141 mmol/L (136-145); Total Bilirubin 0.7 mg/dL (0.15-1.2); Total Protein 5.6 g/dL (6.6-8.7)
[2021-02-26] MEDS: docusate sodium 100 mg Capsule PO (07:57)
[2021-02-26] MEDS: aspirin 81 mg Chew Tablet PO (07:57)
[2021-02-26] MEDS: linezolid premix 600 MG/300 ML PREMIX 300 MG IV (07:57)
[2021-02-26] MEDS: levothyroxine 112 mcg Tablet PO (07:57)
[2021-02-26] MEDS: pantoprazole DR 40 mg Tablet PO (07:57)
[2021-02-26] MEDS: lactulose oral liq 20 gm/30 mL UDC PO (07:57)
[2021-02-26] MEDS: levETIRAcetam 500 mg Tablet PO ×2 (07:57→18:37)
[2021-02-26 08:03] LABS: NT Pro B Type Natriuretic Pept 3659 pg/mL (0-450)
--- NOTE | 2021-02-26 08:08 | PC.NURSE ---
Patient sitting up in bed, awake, alert and oriented X3, reports several episodes of diarrhea last night but no pain. call light in reach, side rails up X2.
[2021-02-26] MEDS: FUROsemide 10 mg/mL SDV 2mL 20 MG IVP (10:28)
[2021-02-26] MEDS: hydrocortisone 10 mg Tablet 50 MG PO (10:29)
--- NOTE | 2021-02-26 11:04 | PC.NURSE ---
Dr. Cortez in to see patient discussed plan of care to stop lactulose and colace, continue physical therapy, denies pain or further needs. See MAR for further details.
[2021-02-26] MEDS: enoxaparin 40 mg/0.4 mL Syringe SUBCUT (14:34)
--- NOTE | 2021-02-26 15:00 | PC.NURSE ---
Patient tolerated sitting in the chair today without pain. Patient is wanting to go home within the next couple days but is hesitant for discharge home at this time due to weakness. Physical therapy worked with patient today and all agreed to go day by day.
--- NOTE | 2021-02-26 17:11 | P.PN_ITS ---
Subjective Subjective: Interval history: Patient was seen this morning, he is alert oriented x3, his only complaint is of diarrhea, he tells me it is the laxatives that he is getting, denies any nausea, no vomiting, no chest pain, shortness of breath is on to 3 L Vitals/I&O/Wt Last Vital Signs Temp 97.7 F 02/26/21 16:02 Pulse 68 02/26/21 16:34 Resp 20 H 02/26/21 16:34 BP 153/90 02/26/21 16:02 Pulse Ox 97 02/26/21 16:34 02/26/21 02/26/21 02/26/21 06:59 14:59 22:59 Intake Total 50 / 8393 188.5386 / 579.0909 50 / 629.0909 Output Total 200 / 825 1600 / 1600 700 / 2300 Balance -150 / 175 -1020.9091 / -1020.9091 -650 / -1670.9091 Weight last 48 hrs Weight 115.349 kg Physical Exam Const: COMMON NORMALS: no acute distress and patient oriented x3 Resp: COMMON NORMALS: normal respiratory effort, No retractions, No use of accessory muscles and clear to auscultation bilaterally AUSCULTATION: clear to auscultation bilaterally Cardio: COMMON NORMALS: regular rate, regular rhythm, S1 normal heart sound present and S2 normal heart sound present RATE: regular rate RHYTHM: regular rhythm HEART SOUNDS: S1 normal heart sound present and S2 normal heart sound present GI: COMMON NORMALS: Normal to inspection, nondistended, normoactive bowel sounds present, Soft to palpation and non-tender PALPATION: Yes Soft to palpation Extremity: COMMON NORMALS: no pedal edema Neuro: COMMON NORMALS: patient oriented x3 Psych: COMMON NORMALS: mental status grossly normal Urinary Catheter Management^: Hawkins: Cath Placed During This Visit: yes Reason for Continuing Indwelling Catheter: Other Urinary Catheter Date of Insertion: 02/20/21 Urinary Catheter Time of Insertion: 09:15 Data : 02/26/21 06:27 02/26/21 06:27 A&P Assessment and plan (1) Acute respiratory failure with hypoxia: Acute respiratory failure with hypoxia: -Secondary to bilateral lower lobe pneumonia, aspiration pneumonia diastolic CHF -With acute encephalopathy, persisting with concerns for underlying dementia and sundowning -With septic shock, resolved -CT angiogram of the chest no pulmonary embolism identified, mild interval enlargement of noncalcified left lower lobe pulmonary nodule, possible pulmonary arterial hypertension, bilateral pulmonary atelectasis, coronary arthrosclerosis, -Venous ultrasound negative for DVT -CT abdomen and pelvis: 1. A small amount of ectopic gas is present in the gallbladder fossa. Interval cholecystectomy. Recommend correlation with the date of prior procedure (less than 1 week?). 2. Mild interval enlargement of noncalcified left lower lobe pulmonary nodule. Biopsy or PET/CT recommended. Fleischner Society recommendations not given due to the interval change. 3. Hepatic cirrhosis. 4. Prior cholecystectomy. 5. Right renal benign cysts. No follow-up imaging is recommended. 6. Left renal benign parapelvic cyst. No follow-up imaging is recommended. 7. Diverticulosis. 8. Appendicolith without evidence of appendicitis. 9. Chronic calcific prostatitis. -Rapid Covid negative, Covid PCR pending -UA unremarkable for UTI -Sepsis criteria met on admission, hypotensive, tachycardia, respiratory 20-30, T-max 103.5, and 12 L nonrebreather -Baseline troponin 46, EKG shows sinus tachycardia with ST depressions in lateral leads, BNP 4469 -Cardiac echocardiogram1. This is a technically difficult study. 2. Normal left ventricular cavity size. Normal left ventricular systolic function. Left ventricular ejection fraction is estimated at 55 %. Study is inadequate for estimation of regional wall motion abnormality. Abnormal septal motion. 3. Probably low normal right ventricular systolic function. 4. Valves grossly appear normal. 5. Pulmonary artery pressure estimated at 51 mmHg. 6. Direct comparison to previous study dated 07/14/2020 is not possible given quality of the study. -Carotid artery ultrasound no hemodynamically significant stenosis -CT scan showed air in the gallbladder fossa, status post diagnostic laparoscopy, no significant findings except lysis of adhesions PLAN: -Currently doing well on 2 L nasal cannula, on second floor -Can use BiPAP during the night -Needs to sit up in bed, hold sedating medications -De-escalate antibiotics to Zosyn -Creatinine down to 1.1, holding diuretics, concerns for possible vancomycin i nduced nephrotoxicity, monitor urine output, hold nephrotoxic agents -Monitor respiratory status closely, wean oxygen as tolerated -Stress dose steroids, decrease hydrocortisone to 50 every 24 hours -We will remove Hawkins catheter -Monitor urine output, creatinine, monitor potassium -had a bowel movement, continue bowel regimen, mechanical soft diet -Continue home levothyroxine -Continue aspirin, statin -COVID-19 precautions, Covid PCR negative -Lovenox for DVT prophylaxis -Protonix for GI prophylaxis -Patient is a DNR, is okay with intubation -Repeat CT of the head no acute stroke -For seizure on Keppra 500 twice daily -It is still certainly unclear what had led to this acute event, likely a seizure leading to aspiration event leading to pneumonia, according to patient was in good health, until he fell out of bed, down to the emergency room I did not detect any focal neurologic deficits, no slurring of speech, no facial droop, he was confused, but could answer basic questions, could follow basic commands such as squeezing my fingers, initial CT of the head was negative, re peat CT of the head is also negative, will consider further imaging including CTA based on creatinine, -Certainly other possibilities that patient could have had a arrhythmic event, or seizures, will order EEG and MRI -Will consider event monitor on discharge -Continue PT OT -Will likely require long term versus home health care Status: Acute (2) Septic shock: Status: Acute (3) Pneumonia: Status: Acute Qualifiers: Pneumonia type: aspiration pneumonia Aspiration pneumonia type: due to vomit Laterality: bilateral Lung location: lower lobe of lung Qualified Code(s): J69.0 - Pneumonitis due to inhalation of food and vomit (4) NSVT (nonsustained ventricular tachycardia): Status: Acute (5) Hypothyroidism: Status: Acute Qualifiers: Hypothyroidism type: unspecified Qualified Code(s): E03.9 - Hypothyroidism, unspecified (6) Hypertension: Status: Acute Qualifiers: Hypertension type: essential hypertension Qualified Code(s): I10 - Essential (primary) hypertension (7) REX (obstructive sleep apnea): Status: Acute (8) PVD (peripheral vascular disease): Status: Acute (9) CHF (congestive heart failure): Status: Acute (10) NSTEMI (non-ST elevated myocardial infarction): Status: Acute (11) Acute encephalopathy: Status: Acute Attestations Medical Necessity Statement*: Patient requires hospitalization due to aspir ation pneumonia, seizure Coding Level of Care Code Acute Operating Systems Programmer for [facility] Diagnoses Acute respiratory failure with hypoxia J96.01 Septic shock A41.9; R65.21 Pneumonia J69.0 Pneumonia type: aspiration pneumonia Aspiration pneumonia type: due to vomit Laterality: bilateral Lung location: lower lobe of lung NSVT (nonsustained ventricular tachycardia) I47.2 Hypothyroidism E03.9 Hypothyroidism type: unspecified Hypertension I10 Hypertension type: essential hypertension REX (obstructive sleep apnea) G47.33 PVD (peripheral vascular disease) I73.9 CHF (congestive heart failure) I50.9 NSTEMI (non-ST elevated myocardial infarction) I21.4 Acute encephalopathy G93.40
[2021-02-26 17:20] LABS: Glucose Point of Care 131 mg/dL (70-110)
[2021-02-26] MEDS: atorvastatin 40 mg Tablet PO (20:48)
[2021-02-27] VITALS (13 sets, daily range): BP systolic 136–168; BP diastolic 80–90; PULSE 65–97; RESP 16–22; TEMP 36.5–36.8; O2SAT 90–98
--- NOTE | 2021-02-27 | MR_ITS ---
WS: [id number] MRI BRAIN WITHOUT CONTRAST HISTORY: seizure COMPARISON: 01/29/2017 TECHNIQUE: Diffusion imaging, multiplanar T1, T2 and FLAIR imaging obtained. No evidence for acute infarct or hemorrhage. Chow-white matter differentiation is normal. Moderate atrophy is present bilaterally involving the cerebellum and cerebrum. There are very few sca ttered T2 and FLAIR signal hyperintensities from chronic small vessel ischemic disease. No hemorrhage . Previously described lobulated soft tissue mass at the sella turcica is no longer present. Ventricles and extra-axial spaces are moderately prominent on the basis of atrophy. No inferior displacement of cerebellar tonsils. Visualized brainstem is normal. Temporal lobes are sy mmetric bilaterally. There is mild atrophy and hippocampal formations but this is symmetric. Dural venous sinuses and [place] of [place] demonstrate no abnormality on this unenhanced studies. Paranasal sinuses: Clear. Mastoid air cells: Normal. Calvarium and scalp: Intact. MR/MR head wo con* [id number] IMPRESSION: 1. No acute hemorrhage or infarct. 2. Moderate atrophy and chronic ischemic disease within the cerebellum and cer ebrum. 3. Lobulated soft tissue mass previously described at the sella turcica is no longer present and probably been surgically resected. No history was provided c oncerning this tumor.
[2021-02-27] MEDS: ipratropium-albuterol 3 mL Neb INHALATION ×6 (00:41→23:44)
--- NOTE | 2021-02-27 05:02 | PC.NURSE ---
Per order from Dr. Becerra this nurse did a straight cath on the patient and got 325mL of urine, urine was very dark and concentrated, no odor noted.
[2021-02-27] MEDS: piperacillin-tazobactam 3.375 GM in sodium chloride 0.9% (plus) 50 ML IV ×3 (05:10→21:20)
[2021-02-27] MEDS: levothyroxine 112 mcg Tablet PO (06:16)
[2021-02-27 06:44] LABS: Basophils % 0.4 %; Hematocrit 40.5 % (42.0-52.0); Lymphocytes # 2.1 10^3/uL (0.8-4.8); Lymphocytes % 23.6 %; Mean Corpuscular HGB Conc 32.1 g/dL (30.0-36.0); Mean Corpuscular Hemoglobin 30.4 pg (28.0-34.0); Mean Corpuscular Volume 94.6 fl (80-94); Mean Platelet Volume 9.8 fL (7.4-10.4); Monocytes # 0.8 10^3/uL (0.2-0.9); Monocytes % 8.9 %; Neutrophils # 5.92 10^3/uL (1.8-7.7); Neutrophils % 65.4 %; Nucleated Red Blood Cells % 0 %; Platelet Count 169 10^3/cmm (130-400); Red Blood Count 4.28 10^6/uL (4.1-5.3); Red Cell Distribution Width 13.7 % (12.1-15.1); White Blood Count 9.1 10^3/uL (4.0-10.0)
[2021-02-27 07:09] LABS: Alanine Aminotransferase 13 U/L (0-41); Albumin Level 3.3 g/dL (3.5-5.2); Alkaline Phosphatase 37 IU/L (40-130); Aspartate Amino Transferase 24 U/L (0-40); Blood Urea Nitrogen 19 mg/dL (8-23); C Reactive Protein 7.6 mg/L (0.0-4.9); Calcium 7.8 mg/dL (8.5-10.5); Carbon Dioxide 27 mmol/L (22-29); Chloride 107 mmol/L (98-107); Creatinine Clr Calc Pharmacy 64.3747; Globulin 2.1 g/dL (1.3-4.6); Glucose 94 mg/dL (65-115); Osmolality Calculated 300 mOsm/kg (285-295); Phosphorus 3.7 mg/dL (2.5-4.5); Sodium 144 mmol/L (136-145); Total Bilirubin 0.7 mg/dL (0.15-1.2); Total Protein 5.4 g/dL (6.6-8.7)
[2021-02-27 07:14] LABS: Anion Gap 13.4 (5-19); Potassium 3.4 mmol/L (3.5-5.1)
[2021-02-27 07:26] LABS: NT Pro B Type Natriuretic Pept 2989 pg/mL (0-450)
--- NOTE | 2021-02-27 09:11 | PC.CHAP ---
Pastoral Care Encounter/Spiritual Assessment Type of Contact [] Declined power transformer repairer visit [] Patient/Family/Request visit [] Outpatient visit [] Follow-up visit [] Physician referral [] Code/Alert [x] Routine visit [] Staff referral [] Actively dying [] Patient sleeping [] Family support [] [] Out of room [] Palliative care [] [] Receiving care in room [] Pre-surgical visit [] Trauma [] Long length of stay [] ICU visit [] Other: Relational/Emotional Strength [x] Patient feels connected with others/family/visitors/staff [] Distress [] Loneliness/isolation [] Abandonment Spirituality of Patient [x] Person of [place] [] Attends Synagogue of their [place] [X] Believes in Prayer [] Reads Bible or Spiritism materials [] There are Spiritual issues to be addressed Residential Real Estate Sales Manager Interventions [x] Prayer [x] Active listening [] Non-anxious presence [] Spiritual/emotional support [] Crisis/trauma care [] Spiritual counseling [] Bereavement support [] Provided bereavement packet [] Provided Bible/devotional materials [] Provided toy/stuffed animal, coloring book to patient or family member [] Provided Communion [] Anointing/Bell [] Salvation [] Completed spiritual assessment [] Other: Impact on Illness or Injury [] Angry [] Fearful [] Anxious [] Often cries [] Exhaustion [] Unable to work [] Unable to attend cheondoism [] Unable to walk/stand [] Unable to read [] Unable to drive [] Unable to eat/drink [] Unable to sleep [] Unable to be with family [] Patient intubated [] Other: Summary Time spent with patient 10 M IN
--- NOTE | 2021-02-27 09:19 | MR_ITS ---
WS: [id number] HISTORY: Post surgery right great toe. EXAMINATION: 3 views of the right foot 02/27/2021. FINDINGS: In comparison to previous examination of 08/02/2011, there has been a decrease in the bone density of the right foot. There are mild degenerative changes in the forefoot with mild joint space narrowing and subchondral s clerosis. No focal bone lesion. No definite bony abnormality of the distal phalanx of the great toe.
[2021-02-27] MEDS: hydrocortisone 10 mg Tablet 50 MG PO (09:31)
[2021-02-27] MEDS: pantoprazole DR 40 mg Tablet PO (09:31)
[2021-02-27] MEDS: aspirin 81 mg Chew Tablet PO (09:31)
[2021-02-27] MEDS: levETIRAcetam 500 mg Tablet PO ×2 (09:31→17:58)
[2021-02-27] MEDS: enoxaparin 40 mg/0.4 mL Syringe SUBCUT (14:20)
--- NOTE | 2021-02-27 15:13 | PM.PN ---
Subjective Subjective: Interval history: Patient was seen and examined this morning.Currently he deny any active complain,family wants him to go to skilled nursing for few weeks. Medications: Reviewed: Yes Vitals/I&O/Wt Last Vital Signs Temp 97.8 F 02/27/21 12:00 Pulse 88 02/27/21 15:11 Resp 17 02/27/21 15:11 BP 168/81 02/27/21 12:00 Pulse Ox 94 02/27/21 15:11 02/27/21 02/27/21 02/27/21 06:59 14:59 22:59 Intake Total 50 / 919.0909 770 / 770 Output Total 325 / 2875 Balance -275 / -1955.9091 770 / 770 Weight last 48 hrs Weight 113.568 kg Weight 113.568 kg Weight 115.349 kg Physical Exam Const: COMMON NORMALS: patient oriented x3 HENMT: COMMON NORMALS: normocephalic and atraumatic HEAD & SCALP: normocephalic and atraumatic Resp: COMMON NORMALS: clear to auscultation bilaterally AUSCULTATION: clear to auscultation bilaterally Cardio: COMMON NORMALS: regular rate, regular rhythm, S1 normal heart sound present, S2 normal heart sound present, No gallops present (Cardio), No murmurs present (Cardio), No rub (Cardio) and Peripheral pulses 2+ throughout RATE: regular rate RHYTHM: regular rhythm HEART SOUNDS: S1 normal heart sound present and S2 normal heart sound present PERIPHERAL PULSES: Peripheral pulses 2+ throughout GI: COMMON NORMALS: Normal to inspection, nondistended, normoactive bowel sounds present, Soft to palpation, non-tender, No hepatosplenomegaly present and no masses AUSCULTATION: Yes normoactive bowel sounds PALPATION: Yes Soft to palpation and Yes No hepatosplenomegaly present RECTAL EXAM: Yes deferred Extremity: COMMON NORMALS: no clubbing, cyanosis or edema and no pedal edema Neuro: COMMON NORMALS: patient oriented x3 Urinary Catheter Management^: Hawkins: Cath Placed During This Visit: yes, but has since been removed by the nurse Reason for Continuing Indwelling Catheter: Decision to DC Catheter Urinary Catheter Date of Insertion: 02/20/21 Urinary Catheter Time of Insertion: 09:15 Date Urinary Catheter Removed: 02/26/21 Time Urinary Catheter Discontinued: 18:42 Data : 02/27/21 06:30 02/27/21 06:30 A&P Assessment and plan (1) Acute respiratory failure with hypoxia: Acute respiratory failure with hypoxia: -Secondary to bilateral lower lobe pneumonia, aspiration pneumonia diastolic CHF -With acute encephalopathy, persisting with concerns for underlying dementia and sundowning -With septic shock, resolved -CT angiogram of the chest no pulmonary embolism identified, mild interval enlargement of noncalcified left lower lobe pulmonary nodule, possible pulmonary arterial hypertension, bilateral pulmonary atelectasis, coronary arthrosclerosis, -Venous ultrasound negative for DVT -CT abdomen and pelvis: 1. A small amount of ectopic gas is present in the gallbladder fossa. Interval cholecystectomy. Recommend correlation with the date of prior procedure (less than 1 week?). 2. Mild interval enlargement of noncalcified left lower lobe pulmonary nodule. Biopsy or PET/CT recommended. Fleischner Society recommendations not given due to the interval change. 3. Hepatic cirrhosis. 4. Prior cholecystectomy. 5. Right renal benign cysts. No follow-up imaging is recommended. 6. Left renal benign parapelvic cyst. No follow-up imaging is recommended. 7. Diverticulosis. 8. Appendicolith without evidence of appendicitis. 9. Chronic calcific prostatitis. -Rapid Covid negative, Covid PCR pending -UA unremarkable for UTI -Sepsis criteria met on admission, hypotensive, tachycardia, respiratory 20-30, T-max 103.5, and 12 L nonrebreather -Baseline troponin 46, EKG shows sinus tachycardia with ST depressions in lateral leads, BNP 4469 -Cardiac echocardiogram1. This is a technically difficult study. 2. Normal left ventricular cavity size. Normal left ventricular systolic function. Left ventricular ejection fraction is estimated at 55 %. Study is inadequate for estimation of regional wall motion abnormality. Abnormal septal motion. 3. Probably low normal right ventricular systolic function. 4. Valves grossly appear normal. 5. Pulmonary artery pressure estimated at 51 mmHg. 6. Direct comparison to previous study dated 07/14/2020 is not possible given quality of the study. -Carotid artery ultrasound no hemodynamically significant stenosis -CT scan showed air in the gallbladder fossa, status post diagnostic laparoscopy, no significant findings except lysis of adhesions PLAN: -Currently doing well on 2 L nasal cannula, on second floor -Can use BiPAP during the night -Needs to sit up in bed, hold sedating medications -De-escalate antibiotics to Zosyn -Creatinine down to 1.1, holding diuretics, concerns for possible vancomycin induced nephrotoxicity, monitor urine output, hold nephrotoxic agents -Monitor respiratory status closely, wean oxygen as tolerated -Stress dose steroids, decrease hydrocortisone to 50 every 24 hours -We will remove Hawkins catheter -Monitor urine output, creatinine, monitor potassium -had a bowel movement, continue bowel regimen, mechanical soft diet -Continue home levothyroxine -Continue aspirin, statin -COVID-19 precautions, Covid PCR negative -Lovenox for DVT prophylaxis -Protonix for GI prophylaxis -Patient is a DNR, is okay with intubation -Repeat CT of the head no acute stroke -For seizure on Keppra 500 twice daily -It is still certainly unclear what had led to this acute event, likely a seizure leading to aspiration event leading to pneumonia, according to patient was in good health, until he fell out of bed, down to the emergency room I did not detect any focal neurologic deficits, no slurring of speech, no facial droop, he was confused, but could answer basic questions, could follow basic commands such as squeezing my fingers, initial CT of the head was negative, repeat CT of the head is also negative, will consider further imaging including CTA based on creatinine, -Certainly other possibilities that patient could have had a arrhythmic event, or seizures, will order EEG and MRI -Will consider event monitor on discharge -Continue PT OT -Will likely require skilled nursing versus home health care Status: Acute (2) Septic shock: Status: Acute (3) Pneumonia: Status: Acute Qualifiers: Pneumonia type: aspiration pneumonia Aspiration pneumonia type: due to vomit Laterality: bilateral Lung location: lower lobe of lung Qualified Code(s): J69.0 - Pneumonitis due to inhalation of food and vomit (4) NSVT (nonsustained ventricular tachycardia): Status: Acute (5) Hypothyroidism: Status: Acute Qualifiers: Hypothyroidism type: unspecified Qualified Code(s): E03.9 - Hypothyroidism, unspecified (6) Hypertension: Status: Acute Qualifiers: Hypertension type: essential hypertension Qualified Code(s): I10 - Essential (primary) hypertension (7) REX (obstructive sleep apnea): Status: Acute (8) PVD (peripheral vascular disease): Status: Acute (9) CHF (congestive heart failure): Status: Acute (10) NSTEMI (non-ST elevated myocardial infarction): Status: Acute (11) Acute encephalopathy: Status: Acute Attestations Medical Necessity Statement*: Patient needs to be in hospital for management of PNA.Awaiting long-term placement Coding Level of Care Code Acute Coordinator Of Health Services for [facility] Diagnoses Acute respiratory failure with hypoxia J96.01 Septic shock A41.9; R65.21 Pneumonia J69.0 Pneumonia type: aspiration pneumonia Aspiration pneumonia type: due to vomit Laterality: bilateral Lung location: lower lobe of lung NSVT (nonsustained ventricular tachycardia) I47.2 Hypothyroidism E03.9 Hypothyroidism type: unspecified Hypertension I10 Hypertension type: essential hypertension REX (obstructive sleep apnea) G47.33 PVD (peripheral vascular disease) I73.9 CHF (congestive heart failure) I50.9 NSTEMI (non-ST elevated myocardial infarction) I21.4 Acute encephalopathy G93.40
--- NOTE | 2021-02-27 16:18 | PC.SOCIAL ---
IMM Update: pg 2 of IMM updated and reviewed w/ patient. Copy provided.
--- NOTE | 2021-02-27 17:45 | PC.RESP ---
RT Shift Note Frequent safety and respiratory rounds continue. Orders completed as indicated. Patient monitored pre and post treatments throughout shift. Patient did tolerate treatments appropriately. Condition improved. Patient and/or liability claims representative educated on respiratory treatment and medications. Patient and/or liability claims representative verbalized understanding. Will continue to monitor patient progress.
[2021-02-27] MEDS: atorvastatin 40 mg Tablet PO (21:20)
[2021-02-28] VITALS: BP 148/80; PULSE 95; RESP 18; TEMP 36.7; O2SAT 95
[2021-02-28 04:00] VITALS: BP 146/78; PULSE 94; RESP 17; TEMP 36.7; O2SAT 92
[2021-02-28] MEDS: piperacillin-tazobactam 3.375 GM in sodium chloride 0.9% (plus) 50 ML IV (04:21)
[2021-02-28] MEDS: levothyroxine 112 mcg Tablet PO (06:39)
[2021-02-28 08:00] VITALS: BP 121/63; PULSE 79; RESP 18; TEMP 36.7; O2SAT 96
[2021-02-28 08:30] VITALS: PULSE 70; RESP 18; O2SAT 92
[2021-02-28] MEDS: ipratropium-albuterol 3 mL Neb INHALATION (08:34)
[2021-02-28] MEDS: hydrocortisone 10 mg Tablet 50 MG PO (08:35)
[2021-02-28] MEDS: pantoprazole DR 40 mg Tablet PO (08:36)
[2021-02-28] MEDS: aspirin 81 mg Chew Tablet PO (08:36)
[2021-02-28] MEDS: levETIRAcetam 500 mg Tablet PO (08:36)
--- NOTE | 2021-02-28 11:08 | P.DS_ITS ---
Discharge Providers Date of Admission: 02/20/21 09:57 Date of Discharge: February 28, 2021 Attending Provider at Admission: Macario Cortez MD Attending Provider at Discharge: Sina Sweet MD Primary Care Provider: Ivory Davis APN Diagnoses at Discharge Discharge Diagnosis (1) Acute respiratory failure with hypoxia: Status: Acute (2) Septic shock: Status: Acute (3) Pneumonia: Status: Acute Qualifiers: Aspiration pneumonia type: due to vomit Laterality: bilateral Lung location: lower lobe of lung Pneumonia type: aspiration pneumonia Qualified Code(s): J69.0 - Pneumonitis due to inhalation of food and vomit (4) NSVT (nonsustained ventricular tachycardia): Status: Acute (5) Hypothyroidism: Status: Acute Qualifiers: Hypothyroidism type: unspecified Qualified Code(s): E03.9 - Hypothyroidism, unspecified (6) Hypertension: Status: Acute Qualifiers: Hypertension type: essential hypertension Qualified Code(s): I10 - Essential (primary) hypertension (7) REX (obstructive sleep apnea): Status: Acute (8) PVD (peripheral vascular disease): Status: Acute (9) CHF (congestive heart failure): Status: Acute (10) NSTEMI (non-ST elevated myocardial infarction): Status: Acute (11) Acute encephalopathy: Status: Acute Reason for Visit Reason for Visit: FALL Hospital Course Hospital Course 85 year old male with a history of laparoscopic cholecystectomy January 10, 2021, 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 CT scan abdomen pelvis showed air in the gallbladder fossa, 2 months after surgery, was taken to the OR for concerns for bowel ischemia however it was unremarkable.Initially he was managed in ICU intubated, broad-spectrum antibiotic therapy, pressors. Once he was clinically improved he was extubated he was off pressors. 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 Lobulated soft tissue mass previously described at the sella turcica is no longer present and probably been surgically resected. Patient was continued on Keppra 500 mg IV BID. No seizure- like activity was noted during the hospital stay. Patient responded well to go with medical management and is being discharged in stable condition to the care home for further recovery, patient will follow up with Dr. Nugent as an outpatient, for further seizure work-up possible EEG. Physical Exam Const: COMMON NORMALS: patient oriented x3 HENMT: COMMON NORMALS: normocephalic and atraumatic HEAD & SCALP: normocephalic and atraumatic Resp: COMMON NORMALS: clear to auscultation bilaterally AUSCULTATION: clear to auscultation bilaterally Cardio: COMMON NORMALS: regular rate, regular rhythm, S1 normal heart sound present, S2 normal heart sound present, No gallops present (Cardio), No murmurs present (Cardio), No rub (Cardio) and Peripheral pulses 2+ throughout RATE: regular rate RHYTHM: regular rhythm HEART SOUNDS: S1 normal heart sound present and S2 normal heart sound present PERIPHERAL PULSES: Peripheral pulses 2+ throughout GI: COMMON NORMALS: Normal to inspection, nondistended, normoactive bowel sounds present, Soft to palpation, non-tender, No hepatosplenomegaly present and no masses AUSCULTATION: Yes normoactive bowel sounds PALPATION: Yes Soft to palpation and Yes No hepatosplenomegaly present RECTAL EXAM: Yes deferred Extremity: COMMON NORMALS: no clubbing, cyanosis or edema and no pedal edema Neuro: COMMON NORMALS: patient oriented x3 Urinary Catheter Management^: Hawkins: Cath Placed During This Visit: yes, but has since been removed by the nurse Reason for Continuing Indwelling Catheter: Decision to DC Catheter Urinary Catheter Date of Insertion: 02/20/21 Urinary Catheter Time of Insertion: 09:15 Date Urinary Catheter Removed: 02/26/21 Time Urinary Catheter Discontinued: 18:42 Discharge Data Data Completed and Pending: Completed Studies During Hospitalization Category Date Time Status CT abdomen pelvis w con* [id number] Stat Cat Scan 02/20/21 06:[address] angio chest PE protcl [id number] Stat Cat Scan 02/20/21 09:[address] head wo con* 7 0450 Stat Cat Scan 02/20/21 07:[address] head wo con* 7 0450 Stat Cat Scan 02/22/21 11:12 Completed XR KUB portable 7 [id number] Routine Exams 02/23/21 07:00 Completed XR KUB portable 7 4018 Routine Exams 02/24/21 08:22 Completed XR chest 1V javi ble [id number] Routine Exams 02/20/21 14:19 Completed XR chest 1V javi ble 55032 Routine Exams 02/21/21 07:00 Completed XR chest 1V javi ble [id number] Routine Exams 02/22/21 07:00 Completed XR chest 1V javi ble [id number] Routine Exams 02/23/21 07:00 Completed XR chest 1V javi ble 36228 Routine Exams 02/24/21 07:00 Completed XR chest 1V javi ble [id number] Stat Exams 02/20/21 06:39 Completed XR chest 1V javi ble [id number] Stat Exams 02/20/21 12:39 Completed XR chest 1V javi ble [id number] Stat Exams 02/20/21 13:09 Completed XR chest 1V javi ble 39967 Stat Exams 02/21/21 08:34 Completed MR head wo con* 7 0551 Routine MRI 02/27/21 Completed CV carotid duplex BI* [id number] Routine Ultrasound 02/20/21 12:26 [place] [id number] Routin e Ultrasound 02/20/21 11:10 Completed CV. echo complete * [id number] Routine Ultrasound 02/21/21 05:00 Completed US gall bladder 7 9175 Routine Ultrasound 02/20/21 11:07 Completed Pending at discharge Category Date Time Status EEG electroenceph alogram Routine Exams 02/22/21 17:53 Ordered COVID [SARS Covid -2 Antigen] Routin e Lab 02/28/21 09:51 Uncollected Vitals: Last Vital Signs Temp 98.0 F 02/28/21 08:00 Pulse 70 02/28/21 08:30 Resp 18 02/28/21 08:30 BP 121/63 02/28/21 08:00 Pulse Ox 92 02/28/21 08:30 Discharge Plan Discharge Patient Disposition: Home Condition: Stable Prescriptions: New levetiracetam 500 mg Tablet 500 mg PO BID Qty: 30 RF: 3 Continued lisinopril 5 mg tablet 5 mg PO DAILY@12 RF: 0 aspirin 81 mg Tablet,Chewable 81 mg PO DAILY@12 RF: 0 Hold Instructions: Resume on 01/14/21. levothyroxine 112 mcg Tablet 112 mcg PO DAILY@07 RF: 0 hydrocortisone 20 mg tablet See Rx Instructions .ROUTE .COMPLEX RF: 0 multivitamin Tablet 1 tab PO DAILY@12 RF: 0 albuterol sulfate [ProAir HFA] 90 mcg/actuation Hfa Aerosol Inhaler 2 puff INHALATION Q4H PRN (Reason: Shortness Of Breath) RF: 0 Vitamin B-12 1 tab PO DAILY RF: 0 Discharge Orders: Discharge Order (Routine); Ordered 02/28/21 Ordered By: Sina Sweet Referrals: [facility] [Outside] Camille Nugent MD [Physician] - 03/29/21 12:30 pm Ivory Davis APN [Primary Care Provider] - 03/08/21 10:30 am Discharge Diet: Usual diet Discharge Activity: Resume usual activity Patient Instructions: Levetiracetam (By mouth), Opioid Safety Discharge Attestations Time Spent in Discharge Care*: less than 30 min Specific Discharge Activities: educating patient, educating and/or supporting family/caregiver, discussing with pcp/other providers, discussing with mental health case manager/social workers/dc planners, documenting/other paperwork and evaluating patient/reviewing data Status at Discharge: Cognitive status at discharge: cognitively intact , Behavioral status at discharge: cooperative , Quality Metrics Clinical Quality Measures During this hospital stay, did patient experience: None Coding Level of Care Code Acute Chg FW DC note Exam Detailed Diagnoses Acute respiratory failure with hypoxia J96.01 Septic shock A41.9; R65.21 Pneumonia J69.0 Aspiration pneumonia type: due to vomit Laterality: bilateral Lung location: lower lobe of lung Pneumonia type: aspiration pneumonia NSVT (nonsustained ventricular tachycardia) I47.2 Hypothyroidism E03.9 Hypothyroidism type: unspecified Hypertension I10 Hypertension type: essential hypertension REX (obstructive sleep apnea) G47.33 PVD (peripheral vascular disease) I73.9 CHF (congestive heart failure) I50.9 NSTEMI (non-ST elevated myocardial infarction) I21.4 Acute encephalopathy G93.40
[2021-02-28 11:51] VITALS: BP 166/73; PULSE 75; RESP 17; TEMP 36.5; O2SAT 93
[2021-02-28 12:12] LABS: SARS Covid-2 Antigen Negative (Negative)
--- NOTE | 2021-02-28 14:47 | PC.NURSE ---
Discharge Note Patient discharged to [facility] via private transportation accompanied by and daughter. Discharge instructions reviewed with patient and/or signs and displays sales representative. Mobile pharmacy medications and/or prescriptions provided. Belongings/home medications returned.
[2021-02-28 14:48] VITALS: BP 166/73; PULSE 75; RESP 17; TEMP 36.5; O2SAT 93
--- NOTE | 2021-03-02 11:02 | PC.SOCIAL ---
discharge follow up call made, spoke with Jeannine at [facility]. Patient is taking medications as prescribed. Date and time given for follow up appointment with Dr. Nugent, they will arrange transport for patient. Radar Signal Processing Engineer will cancel follow up appointment with Ivory Davis. Nurse reports pt is doing good and participating in therapy.
== END 2021-02-28 14:49 | disposition skilled nursing facility (03) | DRG 853 ==
LOC: ER 10:03 → ICU 13:58 → MEDSURG 02-25 14:33
PROVIDERS: Anesthesiology Critical Care Medicine; Internal Medicine Pulmonary Disease; Admitting Provider Family Medicine; Emergency Provider Family Medicine; PCP Nurse Practitioner; Visit Provider Internal Medicine
PROC: 0WJP4ZZ Inspection of Gastrointestinal Tract, Percutaneous Endoscopic Approach (ICD-10-PCS; CPT 49320; principal; 2021-02-20 16:30)
PROC: 0WJP4ZZ Inspection of Gastrointestinal Tract, Percutaneous Endoscopic Approach (ICD-10-PCS; 2021-02-20 16:30)
DX: A41.9 Sepsis, unspecified organism (principal); R65.21 Severe sepsis with septic shock; J96.01 Acute respiratory failure with hypoxia; J69.0 Pneumonitis due to inhalation of food and vomit; I21.4 Non-ST elevation (NSTEMI) myocardial infarction; I50.33 Acute on chronic diastolic (congestive) heart failure; E27.49 Other adrenocortical insufficiency; E87.2 Acidosis; G93.40 Encephalopathy, unspecified; I47.2 Ventricular tachycardia; W06.XXXA Fall from bed, initial encounter; J44.9 Chronic obstructive pulmonary disease, unspecified; Z86.16 Personal history of COVID-19; I11.0 Hypertensive heart disease with heart failure; E03.9 Hypothyroidism, unspecified; I73.9 Peripheral vascular disease, unspecified; Z87.891 Personal history of nicotine dependence; Z87.01 Personal history of pneumonia (recurrent); R91.8 Other nonspecific abnormal finding of lung field; K74.60 Unspecified cirrhosis of liver; K57.90 Diverticulosis of intestine, part unspecified, without perforation or abscess without bleeding; K38.1 Appendicular concretions; N41.1 Chronic prostatitis; I95.9 Hypotension, unspecified; G47.33 Obstructive sleep apnea (adult) (pediatric); Z66 Do not resuscitate; I27.20 Pulmonary hypertension, unspecified; N28.9 Disorder of kidney and ureter, unspecified; R56.9 Unspecified convulsions; Z79.52 Long term (current) use of systemic steroids; Z79.82 Long term (current) use of aspirin; Z79.51 Long term (current) use of inhaled steroids; K66.0 Peritoneal adhesions (postprocedural) (postinfection); R10.84 Generalized abdominal pain
CPT/HCPCS: 36415; 36416; 36556; 36600; 51702; 70450; 70551; 71045; 71275; 74018; 74177; 76705; 80051; 80053; 80202; 81003; 82140; 82330; 82533; 82550; 82728; 82803; 82805; 82962; 83605; 83690; 83735; 83880; 84100; 84145; 84443; 84484; 85025; 85362; 85378; 85384; 85610; 85730; 86140; 87040; 87086; 87426; 87635; 92610; 93005; 93306; 93880; 93970; 94002; 94003; 94640; 94799; 96365; 96367; 96372; 96375; 96376; 97110; 97116; 97161; 97165; 97530; 97535; 99291; 99292; A4570; C1751; C9113; J0330; J0360; J0692; J0743; J1630; J1650; J1720; J1940; J1956; J2020; J2060; J2250; J2370; J2405; J2543; J2704; J3010; J3370; J3480; J3490; J7030; J8499; Q9967

== ENCOUNTER → 2021-04-12 11:11 | Outpatient (BNVA) | payer MEDICARE, OTHER, SELFPAY | PROVIDERS: PCP Nurse Practitioner; Visit Provider Nurse Practitioner | DX: R55 Syncope and collapse (principal); Z87.891 Personal history of nicotine dependence | CPT/HCPCS: 99204 ==

== ENCOUNTER → 2021-06-20 10:31 | Outpatient (BNVA) | payer MEDICARE, OTHER, SELFPAY | PROVIDERS: PCP Nurse Practitioner; Referring Provider Nurse Practitioner; Visit Provider Specialist | DX: G40.309 Generalized idiopathic epilepsy and epileptic syndromes, not intractable, without status epilepticus (principal); Z87.891 Personal history of nicotine dependence | CPT/HCPCS: 95816 ==

== ENCOUNTER → 2021-08-30 10:53 | Outpatient (BNVA) | payer MEDICARE, OTHER, SELFPAY | PROVIDERS: PCP Nurse Practitioner; Visit Provider Internal Medicine Pulmonary Disease | DX: Z20.822 Contact with and (suspected) exposure to COVID-19 (principal) | CPT/HCPCS: 87635 ==

== ENCOUNTER 2021-09-05 10:06 | Outpatient (CLI) | payer MEDICARE, OTHER, SELFPAY ==
--- NOTE | 2021-09-05 13:33 | PFTS_ITS ---
Date of Study:09/05/21 Date of Dictation: 09/08/2021 MECHANICS: Postbronchodilator forced vital capacity (FVC) is . Postbronchodilator Forced expiratory volume in one second (FEV1) is . FEV1/FVC is reduced. There is no significant response to bronchodilators FLOW VOLUME LOOP: Sloping of expiratory limb suggestive of airway obstruction . LUNG VOLUMES: Total lung capacity (TLC) is increased. Residual volume (RV) is significantly increased suggestive of air trapping DIFFUSING CAPACITY FOR CARBON MONOXIDE: Mildly reduced . INTERPRETATION: The postbronchodilator spirometry suggestive of moderate airway obstruction. Lung volumes represent significant air trapping. There is mild gas transfer defect. Clinical correlation recommended. MTDD
== END 2021-09-05 10:07 | disposition home or self-care (01) ==
LOC: RT 10:11
PROVIDERS: PCP Family Medicine; Visit Provider Internal Medicine Pulmonary Disease
DX: J44.9 Chronic obstructive pulmonary disease, unspecified (principal)
CPT/HCPCS: 94060; 94726; 94729

== ENCOUNTER → 2021-10-02 12:59 | Outpatient (BNVA) | payer MEDICARE, OTHER, SELFPAY | PROVIDERS: PCP Family Medicine; Visit Provider Nurse Practitioner | DX: G40.909 Epilepsy, unspecified, not intractable, without status epilepticus (principal); Z87.891 Personal history of nicotine dependence | CPT/HCPCS: 99213; 99214 ==

== ENCOUNTER 2021-10-06 09:18 | Inpatient (IN) | payer MEDICARE, OTHER, SELFPAY ==
[2021-10-06] VITALS (11 sets, daily range): BP systolic 149–197; BP diastolic 77–108; PULSE 70–90; RESP 17–20; TEMP 36.6–37; O2SAT 87–93; BMI 34.5; BMI 35.7
--- NOTE | 2021-10-06 10:01 | ECG_ITS ---
[facility] Test Date: 2021-10-06 Pat Name: Rashid Bolivar Department: Room: Gender: Male Radio Station Manager: : 1935 Requested By: Renee Barragan Order Number: [id number] Jean MD: Javi Brown M.D. Measurements Intervals [place] Rate: 70 P: 48 IN: 178 QRS: 129 QRSD: 118 T: 64 QT: 445 QTc: 482 Interpretive Statements SINUS RHYTHM INDETERMINATE AXIS RIGHT BUNDLE BRANCH BLOCK [120+ ms QRS DURATION, UPRIGHT V1, 40+ ms S IN I/aVL/V4/V5/V6] MODERATE T-WAVE ABNORMALITY, CONSIDER LATERAL ISCHEMIA [-0.1+ mV T-WAVE IN I/aVL/V5/V6] Compared to ECG 02/24/2021 05:02:14 Indeterminate axis now present Right bundle-branch block now present Sinus bradycardia no longer present Intraventricular conduction delay no longer present T-wave abnormality still present Possible ischemia still present Electronically Signed On 10-06-2021 23:24:57 CDT by Javi Brown M.D. [id number]
--- NOTE | 2021-10-06 10:01 | XR_ITS ---
WS: [id number] Exam: XR chest 1V portable [id number] Date/Time of Exam: 10/06/2021 10:02 AM Reason For Exam: SOB Comparison 02/24/2021. The heart is enlarged. Pulmonary vascularity mildly increased. No pleural effusions. No consolidated infiltrates. Chronically elevated right diaphragm. Thickening of the minor fissure on the right. Plaq ue atelectasis in the left lower lobe. The mediastinum is not widened. Bony elements are unremarkable . XR/XR chest 1V portable [id number] IMPRESSION: 1. Cardiac enlargement with slightly increased pulmonary vascularity. No acute process is noted. 2. Left lower lobe plaque atelectasis. Thickening of the minor fissure on the r ight. Chronically elevated right diaphragm.
--- NOTE | 2021-10-06 10:03 | ED_ITS ---
HPI - SOB/Dyspnea General: Chief Complaint: Shortness of Breath/Dyspnea Stated Complaint: low oxygen level/lower back pain/swollen feet Time Seen by Provider: 10/06/21 09:49 Source: patient and family Mode of arrival: ambulatory Limitations: no limitations History of Present Illness: HPI Narrative: Patient is an 86-year-old male with a history of acute respiratory failure, enc ephalopathy, CHERI, CHF, COPD, HTN, non-STEMI, lung nodule, epilepsy, obstructive sleep apnea, and obesity who presents to ED today with a complaint of low oxygen and shortness of breath. Patient states over the past 2 days his oxygen has been running 85% at home. He tells me he does have a history of COPD. He does not normally use oxygen at home. Patient states he did have an episode of acute respiratory failure secondary to aspiration pneumonia back in February and was on a ventilator for several days. He did require oxygen for several months following this visit but has not been on home O2 for several months. He sees Dr. Dr. Ceron with pulmonology and recently has had PFTs performed-results below: INTERPRETATION: The postbronchodilator spirometry suggestive of moderate airway obstruction.? Lung volumes represent significant air trapping.? There is mild gas transfer def ect.? Clinical correlation recommended. Patient tells me he is also noticed worsening bilateral lower extremity swelling and increased urination. He is not on any type of diuretic. He is not having any chest pain. No recent URI symptoms or fevers. He does have a complaint of intermittent mid back pains. Patient states he has had these pains previously. They seem to come on suddenly with certain movements. He currently is not having back pain. MD elicited complaint: shortness of breath Pertinent past history: COPD, congestive heart failure and pneumonia Onset (ago): day(s) Timing: constant Exacerbating factors: exertion Known history of: COPD and congestive heart failure Associated symptoms: Deny abdominal pain, chest congestion, chest pain, dizziness, extremity pain, fever(s), hemoptysis, lightheadedness, nausea, palpitations, syncope or vomiting Related Data: Home oxygen amount: none Review of Systems Const: Denies: fever(s), chills, body aches, fatigue or malaise Eyes: Denies: change in vision or blurry vision Card: Reports: edema, swelling of feet/ankles and dyspnea on exertion (chronic); Denies: chest pain, palpitations, irregular heart rhythm, lightheadedness, syncope or pre-syncope Resp: Reports: dyspnea; Denies: productive cough, non-productive cough, wheezing, pain on inspiration, hemoptysis or chest congestion GI: Denies: abdominal pain, nausea, vomiting, heartburn or diarrhea : Denies: difficulty urinating or dysuria Musc: Reports: back pain and extremity swelling; Denies: neck pain, extremity pain, joint pain, joint swelling, joint redness or joint warmth Skin/Breast: Denies: rash Neuro: Denies: headache(s), numbness in extremities, weakness in extremities, sensory changes, difficulty walking or dizziness PFSH ED PFSH: Medical History Acute encephalopathy Acute respiratory failure with hypoxia Acute respiratory failure with hypoxia Adrenal insufficiency CHERI (acute kidney injury) Altered mental status CHF (congestive heart failure) COPD (chronic obstructive pulmonary disease) Counseling regarding advanced directives and goals of care COVID-19 Elevated brain natriuretic peptide (BNP) level Elevated d-dimer Elevated lactic acid level Gallbladder polyp Hypertension Hypothyroidism Hypoxia Lung nodule NSTEMI (non-ST elevated myocardial infarction) NSVT (nonsustained ventricular tachycardia) Oral thrush REX (obstructive sleep apnea) Peripheral arterial disease Pneumonia Pneumonia Pulmonary hypertension PVD (peripheral vascular disease) Recurrent syncope Renal insufficiency Sepsis Sepsis Septic shock Thyroid disease Surgical History H/O brain surgery History of gastric surgery History of prostate surgery Family History Denies family history of Diabetes CAD (coronary artery disease) Clotting disorder Dementia Hyperlipidemia Psychiatric illness Chronic kidney disease (CKD) Suicide Anesthesia complication Bleeding disorder Family history of premature coronary artery disease Lung disease Cancer Hypertension Stroke Social History Smoking and tobacco status: former smoker Quit status (tobacco): has quit using tobacco Year quit tobacco: 1999 [id number] cig/pipe Second hand smoke exposure: No Smoking risk assessment/counseling performed?: Yes Alcohol intake: never Lives independently: Yes Household members: spouse Housing: House Marital status: service: No Current occupational status: retired Pets and animals: No History of recent travel: No Current gender identity: Male Physical Exam Const: COMMON NORMALS: patient oriented x3, no limitations and alert GENERAL APPEARANCE: cooperative and in distress (acute respiratory distress with hypoxia requiring 2L O2) NUTRITIONAL APPEARANCE: obese ORIENTATION/CONSCIOUSNESS: Yes awake, Yes oriented to person, Yes oriented to place and Yes oriented to time HENMT: COMMON NORMALS: normocephalic and atraumatic HEAD & SCALP: normal to inspection, normocephalic and atraumatic Eye: GENERAL EYE: appearance normal, both eyes and all related structures Neck/C-Spine: COMMON NORMALS: supple and no JVD GENERAL: Yes normal visual inspection Chest: COMMONS NORMALS: normal inspection of the chest and normal palpation of entire chest wall Resp: COMMON NORMALS: normal respiratory effort EFFORT & INSPECTION: No tachypneic, No grunting, No stridor, No Actively coughing, No retractions and Yes other (patient gets winded with speaking) AUSCULTATION: diminished lung sounds (left lower lung ) Cardio: COMMON NORMALS: no JVD, regular rate and regular rhythm RATE: regular rate RHYTHM: regular rhythm GI: COMMON NORMALS: Soft to palpation and non-tender INSPECTION: Yes central obesity AUSCULTATION: Yes normoactive bowel sounds PALPATION: Yes Soft to palpation : COMMON NORMALS: Yes no CVA tenderness BLADDER/KIDNEY EXAM: Yes no CVA tenderness Back/Pelvis: COMMON NORMALS: no CVA tenderness, thoracic and lumbar spine normal to inspection, no thoracic nor lumbar tenderness and thoraco-lumbar ROM normal OTHER: states he currently is not having back pain Extremity: COMMON NORMALS: full ROM, capillary refill normal and no calf tenderness GENERAL: Yes normal exam except as noted OTHER: bilateral symmetrical LE pitting edema Neuro: LACEY COMA SCALE: document GCS findings [place] coma scale eye opening: Spontaneous [place] coma scale verbal response: Orientated [place] coma scale motor response: Obey commands [place] coma scale total score: 15 COMMON NORMALS: patient oriented x3, moves all extremities, no focal motor deficits and no sensory deficits noted SENSORIUM/ORIENTATION: Yes alert, Yes oriented to person, Yes oriented to place and Yes oriented to time Skin: COMMON NORMALS: no rashes or lesions noted GENERAL SKIN EXAM: no rashes or lesions noted Course 2 Consultations: Consultation #1: Dr. Garcia-accepts patient Vital Signs: Vital signs: Vital Signs Temperature 98.6 F 10/06/21 09:41 Pulse Rate 90 10/06/21 13:59 Respiratory Rate 20 H 10/06/21 13:59 Blood Pressure 170/108 10/06/21 13:59 Pulse Oximetry 91 10/06/21 13:59 MDM - SOB/Dyspnea Medical Decision Making Patient is a nice 86-year-old male with a plethora of previous medical problems here for complaints of hypoxia over the past 48 hours as well as worsening bilateral lower extremity swelling. Patient states he has been satting at 85% on room air at home. I currently have patient on 2.5-3L O2 and he is currently satting at 92%. Patient has known COPD and CHF. He recently had PFTs performed by his director of group counseling program Dr. Ceron which showed obstructive pattern and air trapping. CXR today shows cardiomegaly with increased pulmonary vascularity but no acute process was identified. BNP today is roughly 1400 which is actually lower than what it has been previously. Clinically patient appears fluid overloaded. Last echo was in February 2021 showing an EF at 46%. Blood work shows a normal white count and a normal procalcitonin. He does have hypokalemia at 2.8. His magnesium is normal. Incidentally found to have hypocalcemia at 6.4. Albumin is 3.0. Patient's initial troponin is 17 with a negative delta. Baseline and repeat EKG with no changes from prior EKGs in February. He is not having chest pains. Patient will require hospitalization for acute respiratory failure with hypoxia secondary to COPD versus CHF exacerbation and probable IV diuresis in the setting of hypokalemia and further work-up for his hypocalemia. I spoke to Dr. Payne who agrees with workup and need for hospitalization. I spoken to hospitalist Dr. Bahena and we will obtain a d-dimer at this time and he will admit patient for further work-up. Lab Data : 10/06/21 10:52 10/06/21 10:52 Labs/Radiology: Radiology Impressions Chest X-Ray 10/06/21 10:01 IMPRESSION: 1. Cardiac enlargement with slightly increased pulmonary vascularity. No acute process is noted. 2. Left lower lobe plaque atelectasis. Thickening of the minor fissure on the right. Chronically elevated right diaphragm. Laboratory Results WBC 5.8 10^3/uL (4.0-10.0) 10/06/21 10:52 RBC 4.39 10^6/uL (4.1-5.3) 10/06/21 10:52 Hgb 13.9 g/dL (11.7-16.6) 10/06/21 10:52 Hct 42.7 % (42.0-52.0) 10/06/21 10:52 MCV 97.3 fl (80-94) H 10/06/21 10:52 MCH 31.7 pg (28.0-34.0) 10/06/21 10:52 MCHC 32.6 g/dL (30.0-36.0) 10/06/21 10:52 RDW 13.5 % (12.1-15.1) 10/06/21 10:52 Plt Count 144 10^3/cmm (130-400) 10/06/21 10:52 MPV 10.3 fL (7.4-10.4) 10/06/21 10:52 Neut % (Auto) 62.9 % 10/06/21 10:52 Lymph % (Auto) 23.1 % 10/06/21 10:52 [place] % (Auto) 10.6 % 10/06/21 10:52 Eos % (Auto) 2.4 % 10/06/21 10:52 Baso % (Auto) 0.5 % 10/06/21 10:52 Neut # (Auto) 3.63 10^3/uL (1.8-7.7) 10/06/21 10:52 Lymph # (Auto) 1.3 10^3/uL (0.8-4.8) 10/06/21 10:52 [place] # (Auto) 0.6 10^3/uL (0.2-0.9) 10/06/21 10:52 Eos # (Auto) 0.1 10^3/uL (0.0-0.8) 10/06/21 10:52 Baso # (Auto) 0.0 10^3/uL (0.0-0.1) 10/06/21 10:52 Nucleated RBC % (auto) 0 % 10/06/21 10:52 Nucleated RBCs # 0.0 /100WBC 10/06/21 10:52 Specimen Type Arterial 10/06/21 13:15 Sample Site Radial, right 10/06/21 13:15 ABG pH 7.42 (7.35-7.45) 10/06/21 13:15 ABG pCO2 49.2 mmHg (35-45) H 10/06/21 13:15 ABG pO2 64.5 mmHg (80.0-100.0) L 10/06/21 13:15 ABG HCO3 31.6 mmol/L (22-26) H 10/06/21 13:15 ABG O2 Saturation 93.7 10/06/21 13:15 ABG Base Excess 5.7 mmol/L (-2.0-2.0) H 10/06/21 13:15 Neeraj Test Pos 10/06/21 13:15 A-a O2 Gradient 3.4 mmHg (5-10) L 10/06/21 13:15 Hematocrit 45.3 % (42-52) 10/06/21 13:15 Hgb O2 Saturation 92.0 % (95-100) L 10/06/21 13:15 Carboxyhemoglobin 1.5 %THgb (0.4-20.1) 10/06/21 13:15 Methemoglobin 0.3 % (0.4-1.5) L 10/06/21 13:15 Total Hemoglobin 14.8 g/dL (14-18) 10/06/21 13:15 Sodium 141.0 mmol/L (131-143) 10/06/21 13:15 Potassium 4.5 mmol/L (3.5-5.0) 10/06/21 13:15 Glucose 161.0 mg/dL (70-115) H 10/06/21 13:15 Ionized Calcium 1.2 mmol/L (1.1-1.4) 10/06/21 13:15 O2 Delivery Device Nc 10/06/21 13:15 O2 Liters/Min 2.0 % 10/06/21 13:15 Tower Observer ID Sinnja 10/06/21 13:15 Sodium 142 mmol/L (136-145) 10/06/21 10:52 Potassium 2.8 mmol/L (3.5-5.1) L* 10/06/21 10:52 Chloride 108 mmol/L (98-107) H 10/06/21 10:52 Carbon Dioxide 25 mmol/L (22-29) 10/06/21 10:52 Anion Gap 11.8 (5-19) 10/06/21 10:52 BUN 19 mg/dL (8-23) 10/06/21 10:52 Creatinine 0.8 mg/dL (0.7-1.2) 10/06/21 10:52 GFR Calculation Not Reportable 10/06/21 10:52 Glucose 118 mg/dL (65-115) H 10/06/21 10:52 Calculated Osmolality 297 mOsm/kg (285-295) H 10/06/21 10:52 Calcium 6.4 mg/dL (8.5-10.5) L 10/06/21 10:52 Magnesium 1.8 mg/dL (1.7-2.3) 10/06/21 10:52 Total Bilirubin 0.4 mg/dL (0.15-1.2) 10/06/21 10:52 AST 17 U/L (0-40) 10/06/21 10:52 ALT 11 U/L (0-41) 10/06/21 10:52 Alkaline Phosphatase 29 IU/L (40-130) L 10/06/21 10:52 Troponin T Baseline 17 ng/L (0-15) H 10/06/21 10:52 Troponin T 120 Minute 16.69 ng/L (0-15) H 10/06/21 13:30 Delta Troponin T -0.31 ABS# (0-10) L 10/06/21 13:30 NT-Pro-B Natriuret Pep 1486 pg/mL (0-450) H 10/06/21 10:52 Total Protein 5.3 g/dL (6.6-8.7) L 10/06/21 10:52 Albumin 3.0 g/dL (3.5-5.2) L 10/06/21 10:52 Globulin 2.3 g/dL (1.3-4.6) 10/06/21 10:52 Procalcitonin 0.07 ng/mL (0-0.5) 10/06/21 10:52 Urine Color Yellow (Yellow) 10/06/21 11:00 Urine Appearance Clear (CLEAR) 10/06/21 11:00 Urine pH 5 (5-7) 10/06/21 11:00 Ur Specific [place] 1.010 (1.005-1.030) 10/06/21 11:00 Urine Protein Neg (Negative) 10/06/21 11:00 Urine Glucose (UA) Norm (Normal) 10/06/21 11:00 Urine Ketones Negative (Negative) 10/06/21 11:00 Urine Blood Neg (Negative) 10/06/21 11:00 Urine Nitrate Negative (Negative) 10/06/21 11:00 Urine Bilirubin Neg (Negative) 10/06/21 11:00 Urine Urobilinogen Norm mg/dL (Negative) 10/06/21 11:00 Ur Leukocyte Esterase Negative (Negative) 10/06/21 11:00 Discharge Plan Discharge Patient Disposition: Admitted As Inpatient Admit Provider: Felix Alex Clinical Impression: Acute exacerbation of chronic obstructive airways disease, Congestive heart failure, Hypokalemia, Hypocalcemia, Acute respiratory failure with hypoxia Condition: Stable Coding Level of Care Code ED Lathe Setup Operator for Chg Fwd Exam Comprehensive
[2021-10-06 11:14] LABS: Add Urine Microscopic? NO; Charge for UA Resulting for Rev
[2021-10-06 11:17] LABS: Basophils % 0.5 %; Eosinophils # 0.1 10^3/uL (0.0-0.8); Eosinophils % 2.4 %; Hematocrit 42.7 % (42.0-52.0); Hemoglobin 13.9 g/dL (11.7-16.6); Lymphocytes # 1.3 10^3/uL (0.8-4.8); Lymphocytes % 23.1 %; Mean Corpuscular HGB Conc 32.6 g/dL (30.0-36.0); Mean Corpuscular Hemoglobin 31.7 pg (28.0-34.0); Mean Corpuscular Volume 97.3 fl (80-94); Mean Platelet Volume 10.3 fL (7.4-10.4); Monocytes # 0.6 10^3/uL (0.2-0.9); Monocytes % 10.6 %; Neutrophils # 3.63 10^3/uL (1.8-7.7); Neutrophils % 62.9 %; Nucleated Red Blood Cells % 0 %; Platelet Count 144 10^3/cmm (130-400); Red Blood Count 4.39 10^6/uL (4.1-5.3); Red Cell Distribution Width 13.5 % (12.1-15.1); White Blood Count 5.8 10^3/uL (4.0-10.0)
[2021-10-06 11:24] LABS: Bilirubin Urine Neg (Negative); Blood Urine Neg (Negative); Glucose Urine UA Norm (Normal); Ketones Urine Negative (Negative); Leukocyte Esterase Urine Negative (Negative); Nitrate Urine Negative (Negative); Protein Urine Neg (Negative); Urine Appearance Clear (CLEAR); Urine Color Yellow (Yellow); Urobilinogen Urine Norm (Negative); pH Urine 5 (5-7)
[2021-10-06 11:36] LABS: Troponin(5th) Baseline 17 ng/L (0-15)
[2021-10-06 11:45] LABS: Alanine Aminotransferase 11 U/L (0-41); Alkaline Phosphatase 29 IU/L (40-130); Anion Gap 11.8 (5-19); Aspartate Amino Transferase 17 U/L (0-40); Blood Urea Nitrogen 19 mg/dL (8-23); Calcium 6.4 mg/dL (8.5-10.5); Carbon Dioxide 25 mmol/L (22-29); Chloride 108 mmol/L (98-107); Globulin 2.3 g/dL (1.3-4.6); Glucose 118 mg/dL (65-115); NT Pro B Type Natriuretic Pept 1486 pg/mL (0-450); Osmolality Calculated 297 mOsm/kg (285-295); Sodium 142 mmol/L (136-145); Total Bilirubin 0.4 mg/dL (0.15-1.2); Total Protein 5.3 g/dL (6.6-8.7)
[2021-10-06 11:49] LABS: Potassium 2.8 mmol/L (3.5-5.1)
[2021-10-06] MEDS: ipratropium-albuterol 3 mL Neb INHALATION ×2 (11:58→20:27)
--- NOTE | 2021-10-06 12:01 | ECG_ITS ---
[facility] Test Date: 2021-10-06 Pat Name: Rashid Bolivar Department: Room: Gender: Male Rn Nursery: : 1935 Requested By: Renee Barragan Order Number: [id number] Jean MD: Javi Brown M.D. Measurements Intervals [place] Rate: 70 P: 2 NV: 190 QRS: 60 QRSD: 117 T: -24 QT: 447 QTc: 485 Interpretive Statements SINUS RHYTHM INDETERMINATE AXIS INCOMPLETE RIGHT BUNDLE BRANCH BLOCK [90+ ms QRS DURATION, TERMINAL R IN V1/V2, 40+ ms S IN I/aVL/V4/V5/V6] ST DEVIATION AND MODERATE T-WAVE ABNORMALITY, CONSIDER ANTEROLATERAL ISCHEMIA [-0.1+ mV T-WAVE IN V3-V6] Compared to ECG 10/06/2021 10:08:11 Incomplete right bundle-branch block now present Right bundle-branch block no longer present T-wave abnormality still present Possible ischemia still present Electronically Signed On 10-06-2021 23:32:48 CDT by Javi Brown M.D. [id number]
--- NOTE | 2021-10-06 12:04 | PC.NURSE ---
Rounded on pt. Pt resting in bed receiving a breathing tx per respiratory and an EKG from tech.
[2021-10-06] MEDS: potassium chloride ER 20 mEq Tablet 40 MEQ PO ×4 (12:07→19:06)
--- NOTE | 2021-10-06 12:07 | PC.NURSE ---
Pt provided lunch sac at this time.
[2021-10-06 12:17] LABS: Magnesium 1.8 mg/dL (1.7-2.3)
[2021-10-06 12:24] LABS: Procalcitonin 0.07 ng/mL (0-0.5)
[2021-10-06 13:23] LABS: ABG PCO2 49.2 mmHg (35-45); ABG PH Result 7.42 (7.35-7.45); Alveolar-Arterial Oxygen Gradi 3.4 mmHg (5-10); Arterial Blood Gas Hematocrit 45.3 % (42-52); Base Excess ABG 5.7 mmol/L (-2.0-2.0); Blood Gas Allen Test Pos; Blood Gas Sample Site Radial, right; Blood Gas Sample Type Arterial; Carboxyhemoglobin 1.5 %THgb (0.4-20.1); HCO3 ABG 31.6 mmol/L (22-26); Ionized Calcium Level - ABG 1.2 mmol/L (1.1-1.4); Methemoglobin 0.3 % (0.4-1.5); Oxygen Device NC; Oxygen Saturation ABG 93.7; PO2 ABG 64.5 mmHg (80.0-100.0); Potassium Level - ABG 4.5 mmol/L (3.5-5.0); Total Hemoglobin 14.8 g/dL (14-18)
[2021-10-06 14:18] LABS: Troponin 5 2HR 16.69 ng/L (0-15)
[2021-10-06 14:20] LABS: Troponin 5 2HR Delta -0.31 ABS# (0-10)
[2021-10-06 15:40] LABS: D Dimer 0.72 ug/mIFEU (0-0.59)
--- NOTE | 2021-10-06 16:15 | USR_ITS ---
PROCEDURE INFORMATION: Exam: US Duplex Lower Extremity Veins, Bilateral Exam date and time: 10/06/2021 4:37 PM Age: 86 years old Clinical indication: Swelling (edema) of limb; Lower extremity, bilateral; Additional info: R/O dvt TECHNIQUE: Imaging protocol: Real-time Duplex ultrasound of the bilateral extremities with 2-D devi scale, color Doppler flow and spectral waveform analysis with image documentation. Complete exam focused on the bilateral lower extremity veins. COMPARISON: [place] [id number] 02/20/2021 3:05 PM FINDINGS: Right deep veins: Unremarkable. The common femoral, femoral, proximal profunda femoral and popliteal veins are patent without thrombus. Normal Doppler waveforms. Normal compressibility and/or augmentation response. Right superficial veins: Saphenofemoral junction is patent without thrombus. Left deep veins: Unremarkable. The common femoral, femoral, proximal profunda femoral and popliteal veins are patent without thrombus. Normal Doppler waveforms. Normal compressibility and/or augmentation response. Left superficial veins: Saphenofemoral junction is patent without thrombus. Soft tissues: Unremarkable. US/[place] [id number] IMPRESSION: No evidence of deep vein thrombosis.
--- NOTE | 2021-10-06 16:15 | CTR_ITS ---
PROCEDURE INFORMATION: Exam: CT Chest Without Contrast; Diagnostic Exam date and time: 10/06/2021 5:44 PM Age: 86 years old Clinical indication: Shortness of breath; Patient HX: Pneumonia on copd; Additional info: Copd/pna TECHNIQUE: Imaging protocol: Diagnostic computed tomography of the chest without contrast. Radiation optimization: All CT scans at this facility use at least one of these dose optimization techniques: automated exposure control; mA and/or kV adjustment per patient size (includes targeted exams where dose is matched to clinical indication); or iterative reconstruction. COMPARISON: CT chest abd pel wo con 09/09/2020 6:27 PM RADIATION DOSE METRICS: Total DLP (mGy-cm): 1035.16 FINDINGS: Lungs: Flattening of diaphragms suggesting hyperinflation/COPD. No obvious imaging signs of pulmonary emphysema. No bronchiectasis. Scattered bilateral linear opacities in the mid and lower lung zones suggesting subsegmental atelectasis-scarring. Otherwise no acute lung consolidation or ground-glass opacity. There is a noncalcified nodular density in the left lung base measuring 18 by 13 mm, unchanged, using similar measuring methods. Pleural spaces: Unremarkable. No pneumothorax. No pleural effusion. Heart: Mild 4 chamber cardiomegaly with coronary calcification. No pericardial effusion. Lymph nodes: No enlarged lymph nodes. Pulmonary arteries: Moderate dilatation of main pulmonary artery at 4 cm, unchanged. Clinical correlation for pulmonary hypertension should be obtained. Aorta: No aortic aneurysm. Diaphragm: Elevated right hemidiaphragm, unchanged. Bones/joints: No acute findings. Soft tissues: No acute findings. CT/CT chest wo con [id number] IMPRESSION: 1. Somewhat limited exam due to artifacts. 2. Comparison CT 02/20/2021. Relatively stable noncalcified left basilar nodule measuring 18 x 13 mm. Due to lack of significant growth, continued CT imaging in 6-[address] correlation may also be considered. 3. Probable pulmonary hyperinflation/COPD however no obvious imaging signs of emphysema are noted. No acute lung consolidation or ground-glass opacities. Scattered linear atelectasis-scarring is present. 4. Cardiac and pulmonary artery findings as described above.
--- NOTE | 2021-10-06 16:17 | CTR_ITS ---
PROCEDURE INFORMATION: Exam: CT Lumbar Spine Without Contrast Exam date and time: 10/06/2021 5:47 PM Age: 86 years old Clinical indication: Low back pain; Patient HX: C/O lbp; Additional info: Bccak pain TECHNIQUE: Imaging protocol: Computed tomography images of the lumbar spine without contrast. Radiation optimization: All CT scans at this facility use at least one of these dose optimization techniques: automated exposure control; mA and/or kV adjustment per patient size (includes targeted exams where dose is matched to clinical indication); or iterative reconstruction. COMPARISON: CT abdomen pelvis w con* [id number] 02/20/2021 8:21 AM RADIATION DOSE METRICS: Total DLP (mGy-cm): 2249.46 FINDINGS: Vertebrae: Slight leftward curvature of lumbar spine. Osteopenia. Stable L3 superior endplate deformity, likely prominent Schmorl's node. Multilevel endplate osteophytes and facet arthropathy are noted. No acute spine fracture or subluxation. Moderate-severe disc space loss and vacuum degeneration at all levels. Discs/Spinal canal/Neural foramina: No significant disc protrusion. No severe spinal canal stenosis. No significant neural foraminal narrowing related to osseous elements. Soft tissues: Unremarkable. CT/CT lumbar spine wo con* [id number] IMPRESSION: No acute lumbar spine findings. Other nonacute findings as described above.
--- NOTE | 2021-10-06 16:23 | PM.HP ---
Providers/Chief Complaint Admitting Physician: Felix Alex MD Primary Care Provider: Trupti Grace MD Chief Complaint: low oxygen level/lower back pain/swollen feet History of Present Illness Rashid Bolivar is a 86 year old male with past medical history of pituitary macroadenoma, history of COPD, COVID-pneumonia April 2020, congestive heart failure with preserved ejection fraction, group 3 pulmonary hypertension, peripheral arterial disease, sleep apnea who was last in hospital in February 2021 when he was treated for acute encephalopathy, hypoxic respiratory failure secondary to aspiration pneumonia requiring mechanical ventilation. He presented to the ER today because of worsening shortness of breath along with hypoxia noted on home pulse oximeter for last few days. As per the patient he was discharged home in February on oxygen which he used for a month. Since then he has not needed any oxygen. For the last 1 week he has been having worsening pain in his back which is causing his blood pressure to rise and for last 2 days he has been feeling difficulty and shortness of breath when he checked his oxygen saturation was dropping down to 85 he says he presented to the ER. Shortness of breath gets worse on exertion not associated with orthopnea. Cough has not worsened. Shortness of breath associated with worsening swelling in his lower legs. Denies any other symptoms of nausea, vomiting, headache, dizziness, sick contacts, runny nose, fevers. Blood work in the ER showed a white count of 5.8, hemoglobin 13.9, D-dimer of 0.7, ABG showing a PCO2 of 49, PO2 of 65, potassium of 2.8, sodium of 141,calcium of 6.4, magnesium of 1.8, baseline troponin of 17 with a delta of -0.3, proBNP of 1486, UA negative for any signs of infection Review of Systems General: Reports: 10 or more systems reviewed and unremarkable except in HPI and below Const: Denies: fever(s), chills, body aches, change in appetite, change in weight, malaise, night sweats, diaphoresis, change in sleep pattern, daytime sleepiness or snoring Eyes: Denies: change in vision, blurry vision, photophobia, eye discomfort or eye discharge ENMT: Denies: throat pain, enlarged tonsils, hoarseness, mouth pain, oral sores, dry mouth, tinnitus, nasal congestion or post nasal drip Card: Denies: chest pain, palpitations, irregular heart rhythm, edema, swelling of feet/ankles, lightheadedness, syncope, pre-syncope, dyspnea on exertion, orthopnea, leg pain with exertion or acrocyanosis Resp: Denies: dyspnea, productive cough, non-productive cough, wheezing, stridor, pain on inspiration, change in phlegm color, hemoptysis or chest congestion GI: Denies: abdominal pain, nausea, vomiting, hematemesis, coffee ground emesis, dysphagia, heartburn, diarrhea, constipation, bloating, GI cramping, change in bowel habits, pain on defecation, hematochezia or melena : Denies: flank pain, difficulty urinating, dysuria, urinary frequency, urinary urgency, urinary hesitancy, urinary dribbling, difficulty starting urination, change in urine stream, nocturia or hematuria Musc: Denies: neck pain, back pain, extremity pain, joint pain, joint swelling, joint redness, joint stiffness or limited range of motion Neuro: Denies: headache(s), numbness in extremities, weakness in extremities, sensory changes, lack of coordination, difficulty walking, frequent falls, dizziness, vertigo, confusion, Slurred speech present, difficulty communicating thoughts or seizure-like activity Psych: Denies: anxiety, depression, mood swings, panic attacks, hopelessness or irritability Endo: Denies: polyuria, polydipsia, tired all the time, cold intolerance, excessive sweating, flushing or heat intolerance Gumaro/Lymph: Denies: easy bruising or easy bleeding All/Imm: Denies: tongue swelling, facial swelling or acute wheezing Medications/Allergies Home Medications Medication Instructions Recorded Confirmed Last Taken Type aspirin 81 mg chewable tablet 81 mg PO DAILY@06/11/20 10/06/21 10/05/21 History levothyroxine 112 mcg tablet 112 mcg PO DAILY@06/11/20 10/06/21 10/06/21 History hydrocortisone 20 mg tablet See Rx Instructions .ROUTE .COMPLEX 09/09/20 10/06/21 10/06/21 History cyanocobalamin (vitamin B-12) 50 50 mcg PO DAILY #0 02/20/21 10/06/21 10/06/21 History mcg tablet (Vitamin B-12) multivitamin 1 tab PO DAILY@02/20/21 10/06/2121/22 History lisinopril 5 mg tablet 10 mg PO DAILY@12 tab 04/12/21 10/06/21 10/05/21 History levetiracetam 500 mg tablet 500 mg PO BID 10/06/21 10/06/21 10/06/21 History Allergies Allergy/AdvReac Type Severity Reaction Status Date / Time morphine Allergy Vomitting Verified 10/06/21 12:10 PFSH Acute PFSH: Medical History (Updated 10/06/21 @ 16:26 by Felix Alex MD) Acute encephalopathy Acute respiratory failure with hypoxia Adrenal insufficiency CHERI (acute kidney injury) Altered mental status CHF (congestive heart failure) COPD (chronic obstructive pulmonary disease) COVID-19 Elevated brain natriuretic peptide (BNP) level Elevated d-dimer Elevated lactic acid level Gallbladder polyp Hypertension Hypothyroidism Hypoxia Lung nodule NSTEMI (non-ST elevated myocardial infarction) NSVT (nonsustained ventricular tachycardia) Oral thrush REX (obstructive sleep apnea) Peripheral arterial disease Pneumonia Pulmonary hypertension PVD (peripheral vascular disease) Recurrent syncope Renal insufficiency Sepsis Septic shock Thyroid disease Surgical History H/O brain surgery History of gastric surgery History of prostate surgery Family History Denies family history of Diabetes CAD (coronary artery disease) Clotting disorder Dementia Hyperlipidemia Psychiatric illness Chronic kidney disease (CKD) Suicide Anesthesia complication Bleeding disorder Family history of premature coronary artery disease Lung disease Cancer Hypertension Stroke Social History Smoking and tobacco status: former smoker Quit status (tobacco): has quit using tobacco Year quit tobacco: 1999 [id number] cig/pipe Second hand smoke exposure: No Smoking risk assessment/counseling performed?: Yes Alcohol intake: never Lives independently: Yes Household members: spouse Housing: House Marital status: service: No Current occupational status: retired Pets and animals: No History of recent travel: No Current gender identity: Male Vitals/I&O/Wt Last Vital Signs Temp 98.0 F 10/06/21 15:54 Pulse 76 10/06/21 15:54 Resp 17 10/06/21 15:54 BP 197/98 10/06/21 15:54 Pulse Ox 90 04/22/22 15:54 Weight last 48 hrs Weight 115.666 kg Physical Exam Narrative: General: No acute distress, AO x3, obese, on nasal cannula oxygen supplementation, ambulatory in room by himself HEENT: PERRLA, pupils bilaterally equal and reactive Chest: Bilateral bronchial breath sounds, diffuse rhonchi present all over the lung vega, equal good air entry bilaterally CVS: S1-S2 regular, no murmurs, no tachycardia, no gallops, no rubs Abdomen: Soft, nontender, no organomegaly, bowel sounds present Neuro: No focal deficits, no facial deformity, AO x3, power 5/5 in all limbs Data : 10/06/21 10:52 10/06/21 10:52 A&P Assessment and plan (1) Acute respiratory failure with hypoxia: Status: Acute (2) Acute exacerbation of chronic obstructive airways disease: Status: Acute (3) Pulmonary hypertension: Status: Acute (4) Congestive heart failure: Status: Acute Qualifiers: Heart failure type: other Qualified Code(s): I50.9 - Heart failure, unspecified (5) Hypokalemia: Status: Acute (6) Hypocalcemia: Status: Acute (7) Hypertension: Status: Acute Qualifiers: Hypertension type: essential hypertension Qualified Code(s): I10 - Essential (primary) hypertension Plan Acute hypoxic respiratory failure: Most likely secondary COPD exacerbation leading to worsening pulmonary hypertension and congestive heart failure: Less likely pneumonia. No white count, Pro-Sudarshan negative, no consolidation on chest x-ray. D-dimer slightly elevated but better than before. Check CT chest without contrast to look for consolidation Versus acute exacerbation we will start patient on DuoNebs every 6 hours, budesonide twice daily, Solu-Medrol 40 every 8 hourly. Keep oxygen supplementation over 88%. For now start patient on Levaquin 500 mg oral daily. Check urine Legionella, bacterial antigen, sputum culture. For congestive heart failure/pulmonary hypertension: As per echocardiogram from March 07, 2021 shows a normal EF of 55%, abnormal septal motion, RVSP of 51 mmHg. Strict input output charting, daily weights. IV Lasix 40 mg once. Fluid restriction up to 1500 cc. Back pain: Check CT lumbar spine without contrast. [place] 5 mg every 8 hours as needed for pain. Physical therapy. Hypokalemia/hypocalcemia: Patient does have history of macroadenoma pituitary related. As per the chart patient is supposed to be on hydrocortisone. Patient is not aware of the same. For now we will hold off. Hypertension: Goal blood pressure less than 140/90 mmHg. Blood pressure currently elevated. Increase home dose of lisinopril to 20 mg daily. Add amlodipine 10 mg daily. Will continue to monitor. . Discussed in detail with patient, patient's at bedside. DNR/DNI. Protonix for bleeding prophylaxis. Cardiac diet. Attestations Medical Necessity Statement*: Requires admission for more than 2 midnights for management of acute hypoxic respiratory failure secondary to sick COPD exacerbation in moderate pulmonary hypertension Time Spent in Patient Care: Greater than 35 minutes Coding Level of Care Code Acute Zipper Machine Operator for Jose Rojas Diagnoses Acute exacerbation of chronic obstructive airways disease J44.1 Congestive heart failure I50.9 Heart failure type: other Acute respiratory failure with hypoxia J96.01 Hypokalemia E87.6 Hypocalcemia E83.51 Pulmonary hypertension I27.20 Hypertension I10 Hypertension type: essential hypertension
[2021-10-06 16:40] LABS: Iron 66 ug/dL (59-158); Percent Saturation 27.3 % (20-50); Total Iron Binding Capacity 241 mcg/dl; Unsaturated Iron Binding 175 ug/dL (112-347)
[2021-10-06 16:59] LABS: Thyroid Stimulating Hormone 0.46 uIU/mL (0.27-4.20); Vitamin B12 1019 pg/mL (232-1245)
[2021-10-06] MEDS: lisinopril 20 mg Tablet PO (17:17)
[2021-10-06] MEDS: amlodipine 10 mg Tablet PO (17:17)
[2021-10-06 17:19] LABS: Ionized Calcium 1.1 mmol/L (1.1-1.4)
[2021-10-06 17:38] LABS: Troponin 5 6HR 14.17 ng/L (0-15)
[2021-10-06 18:00] LABS: Troponin 5 6HR Delta -2.83 ng/L (0-12)
[2021-10-06] MEDS: ferrous gluconate 324 mg Tablet PO (18:12)
[2021-10-06] MEDS: enoxaparin 40 mg/0.4 mL Syringe SUBCUT (18:13)
[2021-10-06] MEDS: levETIRAcetam 500 mg Tablet PO (18:20)
[2021-10-06 18:30] LABS: Calcium 8.5 mg/dL (8.5-10.5)
[2021-10-06 18:37] LABS: Influenza A by IFA Negative (Negative); Influenza B by IFA Negative (Negative); Parathyroid Hormone 36.9 pg/mL (15-65)
[2021-10-06 18:51] LABS: Folate Level > 20.0 ng/mL (4.5-32.2)
[2021-10-06] MEDS: budesonide 0.5 mg/2 mL Neb INHALATION (20:27)
[2021-10-06] MEDS: FUROsemide 10 mg/mL SDV 4mL 40 MG IVP (20:39)
[2021-10-06] MEDS: benzonatate 100 mg Capsule PO (20:40)
[2021-10-06] MEDS: famotidine 20 mg/2 mL INJ IVP (20:40)
[2021-10-06 21:30] LABS: Adenovirus Not Detected (NOT DETECT); Chlamydia Pneumoniae Not Detected (NOT DETECT); Coronavirus 229E,HKU1,NL63,OC4 Not Detected (NOT DETECT); Human Metapneumovirus Not Detected (NOT DETECT); Human Rhinovirus/Enterovirus Not Detected (NOT DETECT); Influenza A Not Detected (NOT DETECT); Influenza A H1 Not Detected (NOT DETECT); Influenza A H1-2009 Not Detected (NOT DETECT); Influenza A H3 Not Detected (NOT DETECT); Influenza B Not Detected (NOT DETECT); Mycoplasma Pneumoniae Not Detected (NOT DETECT); Parainfluenza Virus Type 1 Not Detected (NOT DETECT); Parainfluenza Virus Type 2 Not Detected (NOT DETECT); Parainfluenza Virus Type 3 Not Detected (NOT DETECT); Parainfluenza Virus Type 4 Not Detected (NOT DETECT); Respiratory Syncytial Virus A Not Detected (NOT DETECT); Respiratory Syncytial Virus B Not Detected (NOT DETECT); SARS-COV-2 Not Detected (NOT DETECT)
[2021-10-07] VITALS (11 sets, daily range): BP systolic 134–176; BP diastolic 68–86; PULSE 67–87; RESP 16–19; TEMP 36.3–36.9; O2SAT 90–98
[2021-10-07] MEDS: ipratropium-albuterol 3 mL Neb INHALATION ×4 (02:32→20:35)
[2021-10-07 05:53] LABS: Basophils % 0.1 %; Hematocrit 46.3 % (42.0-52.0); Lymphocytes # 0.9 10^3/uL (0.8-4.8); Lymphocytes % 10.3 %; Mean Corpuscular HGB Conc 32.4 g/dL (30.0-36.0); Mean Corpuscular Hemoglobin 31.3 pg (28.0-34.0); Mean Corpuscular Volume 96.7 fl (80-94); Mean Platelet Volume 10.1 fL (7.4-10.4); Monocytes # 0.2 10^3/uL (0.2-0.9); Monocytes % 2.3 %; Neutrophils % 86.5 %; Nucleated Red Blood Cells % 0 %; Platelet Count 163 10^3/cmm (130-400); Red Blood Count 4.79 10^6/uL (4.1-5.3); Red Cell Distribution Width 13.4 % (12.1-15.1); White Blood Count 8.7 10^3/uL (4.0-10.0)
[2021-10-07] MEDS: levothyroxine 112 mcg Tablet PO (06:04)
[2021-10-07 06:10] LABS: Alanine Aminotransferase 17 U/L (0-41); Albumin Level 4.5 g/dL (3.5-5.2); Alkaline Phosphatase 40 IU/L (40-130); Anion Gap 17.7 (5-19); Aspartate Amino Transferase 21 U/L (0-40); Blood Urea Nitrogen 20 mg/dL (8-23); Calcium 8.7 mg/dL (8.5-10.5); Carbon Dioxide 27 mmol/L (22-29); Chloride 98 mmol/L (98-107); Chol HDL Ratio 3.72 mg/dL (1.0-5.00); Cholesterol 197 mg/dL (0-200); Globulin 2.8 g/dL (1.3-4.6); Glucose 183 mg/dL (65-115); HDL Cholesterol 53 mg/dL (60-100); LDL Cholesterol Calculated 131 mg/dL (50-129); Magnesium 2.3 mg/dL (1.7-2.3); Osmolality Calculated 293 mOsm/kg (285-295); Potassium 4.7 mmol/L (3.5-5.1); Sodium 138 mmol/L (136-145); Total Bilirubin 0.5 mg/dL (0.15-1.2); Total Protein 7.3 g/dL (6.6-8.7); Triglycerides 63 mg/dL (0-150); VLDL Cholestrol Calculation 13 mg/dL (0-30)
[2021-10-07 06:14] LABS: Estmated Average Glucose 123; Hemoglobin A1C 5.9 % (4.0-6.0)
[2021-10-07] MEDS: benzonatate 100 mg Capsule PO ×3 (08:23→21:33)
[2021-10-07] MEDS: amlodipine 10 mg Tablet PO (08:23)
[2021-10-07] MEDS: multivitamin therapeutic Tablet 1 TAB PO (08:23)
[2021-10-07] MEDS: lisinopril 20 mg Tablet PO (08:23)
[2021-10-07] MEDS: famotidine 20 mg/2 mL INJ IVP ×2 (08:23→20:46)
[2021-10-07] MEDS: ferrous gluconate 324 mg Tablet PO ×2 (08:23→17:58)
[2021-10-07] MEDS: levETIRAcetam 500 mg Tablet PO ×2 (08:23→17:57)
[2021-10-07] MEDS: budesonide 0.5 mg/2 mL Neb INHALATION ×2 (09:45→20:35)
--- NOTE | 2021-10-07 13:41 | P.PN_ITS ---
Subjective Subjective: No acute vents overnight. Patient states he is feeling a lot better. Family at bedside. On 2 L satting 93%. Blood pressure better but still slightly elevated. Denies any nausea, vomiting, headache. Vitals/I&O/Wt Last Vital Signs Temp 98.1 F 10/07/21 12:00 Pulse 67 10/07/21 12:00 Resp 19 H 10/07/21 12:00 BP 144/76 10/07/21 12:00 Pulse Ox 93 10/07/21 12:00 10/06/21 10/07/21 10/07/21 22:59 06:59 14:59 Intake Total 480 / 480 640 / 1120 240 / 240 Output Total 1400 / 1400 Balance 480 / 480 -760 / -280 240 / 240 Weight last 48 hrs Weight 118.161 kg Weight 119.612 kg Weight 115.666 kg Physical Exam Narrative: General: No acute distress, AO x3, obese, on nasal cannula oxygen supplementation, ambulatory in room by himself HEENT: PERRLA, pupils bilaterally equal and reactive Chest: Bilateral bronchial breath sounds, diffuse rhonchi present all over the lung vega, equal good air entry bilaterally CVS: S1-S2 regular, no murmurs, no tachycardia, no gallops, no rubs Abdomen: Soft, nontender, no organomegaly, bowel sounds present Neuro: No focal deficits, no facial deformity, AO x3, power 5/5 in all limbs Data : 10/07/21 04:50 10/07/21 04:50 Micro: Microbiology 10/06/21 17:00 MRSA Culture - Final Nose 10/06/21 11:00 Bacterial Antigens - Final Urine Kidney 10/06/21 11:00 Legionella Urinary Antigen - Final Unknown Source A&P Assessment and plan (1) Acute respiratory failure with hypoxia: Status: Acute (2) Acute exacerbation of chronic obstructive airways disease: Status: Acute (3) Pulmonary hypertension: Status: Acute (4) Congestive heart failure: Status: Acute Qualifiers: Heart failure type: other Qualified Code(s): I50.9 - Heart failure, unspecified (5) Hypokalemia: Status: Acute (6) Hypocalcemia: Status: Acute (7) Hypertension: Status: Acute Qualifiers: Hypertension type: essential hypertension Qualified Code(s): I10 - Essential (primary) hypertension Plan Acute hypoxic respiratory failure: Most likely secondary COPD exacerbation leading to worsening pulmonary hypertension and congestive heart failure: Less likely pneumonia. No white count, Pro-Sudarshan negative, no consolidation on chest x-ray. CT chest results appreciated. COVID-19, flu swab negative. Urine Legionella bacterial antigen negative. Continue with DuoNebs every 6 hours, budesonide twice daily, Wean down Solu-Medrol to 40 mg IV every 12 hourly. Keep oxygen supplementation over 88%. For now start patient on Levaquin 500 mg oral daily. For congestive heart failure/pulmonary hypertension: As per echocardiogram from March 07, 2021 shows a normal EF of 55%, abnormal septal motion, RVSP of 51 mmHg. Strict input output charting, daily weights. Switch to oral Lasix 40 mg daily. Fluid restriction up to 1500 cc. Back pain: CT lumbar spine completed. [place] 5 mg every 8 hours as needed for pain. Physical therapy. Hypokalemia/hypocalcemia: Patient does have history of macroadenoma pituitary related. As per the chart patient is supposed to be on hydrocortisone. Patient is not aware of the same. For now we will hold off. Hypertension: Goal blood pressure less than 140/90 mmHg. Blood pressure better but still elevated. Continue amlodipine. Will switch from lisinopril to losartan 50 mg. Will continue to monitor. Discussed in detail with patient, patient's at bedside. DNR/DNI. Protonix for bleeding prophylaxis. Cardiac diet. Attestations Medical Necessity Statement*: Requires further hospitalization for management of acute hypoxia secondary to COPD exacerbation, uncontrolled hypertension Time Spent in Patient Care: Greater than 35 minutes Coding Level of Care Code Acute Interior Design Director for Jose Rojas Diagnoses Acute respiratory failure with hypoxia J96.01 Acute exacerbation of chronic obstructive airways disease J44.1 Pulmonary hypertension I27.20 Congestive heart failure I50.9 Heart failure type: other Hypokalemia E87.6 Hypocalcemia E83.51 Hypertension I10 Hypertension type: essential hypertension
[2021-10-07] MEDS: aspirin 81 mg Chew Tablet PO (14:13)
[2021-10-07] MEDS: FUROsemide 40 mg Tablet PO (14:13)
[2021-10-07] MEDS: enoxaparin 40 mg/0.4 mL Syringe SUBCUT (17:57)
[2021-10-08] VITALS: BP 130/67; PULSE 79; RESP 18; TEMP 36.6; O2SAT 92
[2021-10-08 04:00] VITALS: BP 142/75; PULSE 75; RESP 18; TEMP 36.4; O2SAT 91
[2021-10-08] MEDS: levothyroxine 112 mcg Tablet PO (07:20)
[2021-10-08 07:22] VITALS: BP 138/71; PULSE 72; RESP 18; TEMP 36.8; O2SAT 93
[2021-10-08] MEDS: budesonide 0.5 mg/2 mL Neb INHALATION (07:57)
[2021-10-08] MEDS: ipratropium-albuterol 3 mL Neb INHALATION (07:57)
[2021-10-08 08:00] VITALS: PULSE 75; RESP 18; O2SAT 94
[2021-10-08] MEDS: ferrous gluconate 324 mg Tablet PO (08:15)
[2021-10-08] MEDS: multivitamin therapeutic Tablet 1 TAB PO (08:15)
[2021-10-08] MEDS: benzonatate 100 mg Capsule PO (08:15)
[2021-10-08] MEDS: amlodipine 10 mg Tablet PO (08:15)
[2021-10-08] MEDS: levETIRAcetam 500 mg Tablet PO (08:15)
[2021-10-08] MEDS: losartan 50 mg Tablet PO (11:10)
[2021-10-08] MEDS: aspirin 81 mg Chew Tablet PO (11:13)
[2021-10-08 11:40] VITALS: O2SAT 86
--- NOTE | 2021-10-08 12:05 | PM.DCS ---
Discharge Providers Date of Admission: 10/06/21 14:14 Date of Discharge: October 08, 2021 Attending Provider at Admission: Felix Alex MD Attending Provider at Discharge: Felix Alex MD Primary Care Provider: Trupti Grace MD Diagnoses at Discharge Discharge Diagnosis (1) Acute respiratory failure with hypoxia: Status: Acute (2) Acute exacerbation of chronic obstructive airways disease: Status: Acute (3) Pulmonary hypertension: Status: Acute (4) Congestive heart failure: Status: Acute Qualifiers: Heart failure type: other Qualified Code(s): I50.9 - Heart failure, unspecified Permanent problem details: Preserved ejection fraction, right-sided heart failure (5) Hypokalemia: Status: Acute (6) Hypocalcemia: Status: Acute (7) Hypertension: Status: Acute Qualifiers: Hypertension type: essential hypertension Qualified Code(s): I10 - Essential (primary) hypertension Reason for Visit Reason for Visit: low oxygen level/lower back pain/swollen feet Brief History: History as per HPI: Rashid Bolivar is a 86 year old male with past medical history of pituitary macroadenoma, history of COPD, COVID-pneumonia April 2020, congestive heart failure with preserved ejection fraction, group 3 pulmonary hypertension, peripheral arterial disease, sleep apnea who was last in hospital in February 2021 when he was treated for acute encephalopathy, hypoxic respiratory failure secondary to aspiration pneumonia requiring mechanical ventilation. He presented to the ER today because of worsening shortness of breath along with hypoxia noted on home pulse oximeter for last few days.? As per the patient he was discharged home in February on oxygen which he used for a month.? Since then he has not needed any oxygen.? For the last 1 week he has been having worsening pain in his back which is causing his blood pressure to rise and for last 2 days he has been feeling difficulty and shortness of breath when he checked his oxygen saturation was dropping down to 85 he says he presented to the ER.? Shortness of breath gets worse on exertion not associated with orthopnea.? Cough has not worsened.? Shortness of breath associated with worsening swelling in his lower legs.? Denies any other symptoms of nausea, vomiting, headache, dizziness, sick contacts, runny nose, fevers. Blood work in the ER showed a white count of 5.8, hemoglobin 13.9, D-dimer of 0.7, ABG showing a PCO2 of 49, PO2 of 65, potassium of 2.8, sodium of 141,calcium of 6.4, magnesium of 1.8, baseline troponin of 17 with a delta of -0.3, proBNP of 1486, UA negative for any signs of infection Hospital Course Hospital Course Patient admitted to hospital further evaluation and management of hypoxia. CT chest was done which ruled out consolidation. He was treated for COPD exacerbation leading to worsening of right-sided heart failure. He was started on nebulization treatment along with IV steroids. He was also started on gentle diuresis. On admission he was found to have uncontrolled hypertension for which his antihypertensives were adjusted. Patient responded well to the treatment. He is been discharged in hemodynamically stable condition after home O2 evaluation on steroid taper for next 10 days, nebulization treatment, oral Lasix with advised to check his blood pressures daily going forward for next 1 week and follow-up with his primary care provider for further adjustment of antihypertensives. Physical Exam Narrative: General: No acute distress, AO x3, obese, on nasal cannula oxygen supplementation, ambulatory in room by himself HEENT: PERRLA, pupils bilaterally equal and reactive Chest: Bilateral bronchial breath sounds, diffuse rhonchi present all over the lung vega, equal good air entry bilaterally CVS: S1-S2 regular, no murmurs, no tachycardia, no gallops, no rubs Abdomen: Soft, nontender, no organomegaly, bowel sounds present Neuro: No focal deficits, no facial deformity, AO x3, power 5/5 in all limbs Discharge Data Studies Completed and Pending Completed Studies During Hospitalization Category Date Time Status CT chest wo con [id number] Urgent Cat Scan 10/06/21 16:[address] lumbar spine wo con* [id number] Routine Cat Scan 10/06/21 16:17 Completed XR chest 1V portable [id number] Urgent Exams 10/06/21 10:01 [place] [id number] Urgent Ultrasound 10/06/21 16:15 Completed Pending at discharge Category Date Time Status PTH Related [PTH Related Peptide (Protein)] Stat Lab 10/06/21 17:00 Received Radiology Impressions Chest X-Ray 10/06/21 10:01 IMPRESSION: 1. Cardiac enlargement with slightly increased pulmonary vascularity. No acute process is noted. 2. Left lower lobe plaque atelectasis. Thickening of the minor fissure on the right. Chronically elevated right diaphragm. Chest CT 10/06/21 16:15 IMPRESSION: 1. Somewhat limited exam due to artifacts. 2. Comparison CT 02/20/2021. Relatively stable noncalcified left basilar nodule measuring 18 x 13 mm. Due to lack of significant growth, continued CT imaging in 6-[address] correlation may also be considered. 3. Probable pulmonary hyperinflation/COPD however no obvious imaging signs of emphysema are noted. No acute lung consolidation or ground-glass opacities. Scattered linear atelectasis-scarring is present. 4. Cardiac and pulmonary artery findings as described above. Venous Duplex 10/06/21 16:15 IMPRESSION: No evidence of deep vein thrombosis. Lumbar Spine CT 10/06/21 16:17 IMPRESSION: No acute lumbar spine findings. Other nonacute findings as described above. Laboratory Results WBC 8.7 10^3/uL (4.0-10.0) 10/07/21 04:50 RBC 4.79 10^6/uL (4.1-5.3) 10/07/21 04:50 Hgb 15.0 g/dL (11.7-16.6) 10/07/21 04:50 Hct 46.3 % (42.0-52.0) 10/07/21 04:50 MCV 96.7 fl (80-94) H 10/07/21 04:50 MCH 31.3 pg (28.0-34.0) 10/07/21 04:50 MCHC 32.4 g/dL (30.0-36.0) 10/07/21 04:50 RDW 13.4 % (12.1-15.1) 10/07/21 04:50 Plt Count 163 10^3/cmm (130-400) 10/07/21 04:50 MPV 10.1 fL (7.4-10.4) 10/07/21 04:50 Neut % (Auto) 86.5 % 10/07/21 04:50 Lymph % (Auto) 10.3 % 10/07/21 04:50 [place] % (Auto) 2.3 % 10/07/21 04:50 Eos % (Auto) 0.0 % 10/07/21 04:50 Baso % (Auto) 0.1 % 10/07/21 04:50 Neut # (Auto) 7.50 10^3/uL (1.8-7.7) 10/07/21 04:50 Lymph # (Auto) 0.9 10^3/uL (0.8-4.8) 10/07/21 04:50 [place] # (Auto) 0.2 10^3/uL (0.2-0.9) 10/07/21 04:50 Eos # (Auto) 0.0 10^3/uL (0.0-0.8) 10/07/21 04:50 Baso # (Auto) 0.0 10^3/uL (0.0-0.1) 10/07/21 04:50 Nucleated RBC % (auto) 0 % 10/07/21 04:50 Nucleated RBCs # 0.0 /100WBC 10/07/21 04:50 D-Dimer 0.72 ug/mIFEU (0-0.59) H 10/06/21 14:45 Specimen Type Arterial 10/06/21 13:15 Sample Site Radial, right 10/06/21 13:15 ABG pH 7.42 (7.35-7.45) 10/06/21 13:15 ABG pCO2 49.2 mmHg (35-45) H 10/06/21 13:15 ABG pO2 64.5 mmHg (80.0-100.0) L 10/06/21 13:15 ABG HCO3 31.6 mmol/L (22-26) H 10/06/21 13:15 ABG O2 Saturation 93.7 10/06/21 13:15 ABG Base Excess 5.7 mmol/L (-2.0-2.0) H 10/06/21 13:15 Neeraj Test Pos 10/06/21 13:15 A-a O2 Gradient 3.4 mmHg (5-10) L 10/06/21 13:15 Hematocrit 45.3 % (42-52) 10/06/21 13:15 Hgb O2 Saturation 92.0 % (95-100) L 10/06/21 13:15 Carboxyhemoglobin 1.5 %THgb (0.4-20.1) 10/06/21 13:15 Methemoglobin 0.3 % (0.4-1.5) L 10/06/21 13:15 Total Hemoglobin 14.8 g/dL (14-18) 10/06/21 13:15 Sodium 141.0 mmol/L (131-143) 10/06/21 13:15 Potassium 4.5 mmol/L (3.5-5.0) 10/06/21 13:15 Glucose 161.0 mg/dL (70-115) H 10/06/21 13:15 Ionized Calcium 1.2 mmol/L (1.1-1.4) 10/06/21 13:15 O2 Delivery Device Nc 10/06/21 13:15 O2 Liters/Min 2.0 % 10/06/21 13:15 [employer] Operator ID Hinja 10/06/21 13:15 Sodium 138 mmol/L (136-145) 10/07/21 04:50 Potassium 4.7 mmol/L (3.5-5.1) 10/07/21 04:50 Chloride 98 mmol/L (98-107) 10/07/21 04:50 Carbon Dioxide 27 mmol/L (22-29) 10/07/21 04:50 Anion Gap 17.7 (5-19) 10/07/21 04:50 BUN 20 mg/dL (8-23) 10/07/21 04:50 Creatinine 1.2 mg/dL (0.7-1.2) 10/07/21 04:50 GFR Calculation Not Reportable 10/07/21 04:50 Glucose 183 mg/dL (65-115) H 10/07/21 04:50 Estimat Average Glucose 123 10/07/21 04:50 Hemoglobin A1c 5.9 % (4.0-6.0) 10/07/21 04:50 Calculated Osmolality 293 mOsm/kg (285-295) 10/07/21 04:50 Calcium 8.7 mg/dL (8.5-10.5) 10/07/21 04:50 Ionized Calcium Andrez 1.1 mmol/L (1.1-1.4) 10/06/21 13:57 Phosphorus 3.0 mg/dL (2.5-4.5) 10/07/21 04:50 Magnesium 2.3 mg/dL (1.7-2.3) 10/07/21 04:50 Iron 66 ug/dL (59-158) 10/06/21 13:57 TIBC 241 mcg/dl 10/06/21 13:57 % Saturation 27.3 % (20-50) 10/06/21 13:57 Unsat Iron Binding 175 ug/dL (112-347) 10/06/21 13:57 Total Bilirubin 0.5 mg/dL (0.15-1.2) 10/07/21 04:50 AST 21 U/L (0-40) 10/07/21 04:50 ALT 17 U/L (0-41) 10/07/21 04:50 Alkaline Phosphatase 40 IU/L (40-130) 10/07/21 04:50 Troponin T Baseline 17 ng/L (0-15) H 10/06/21 10:52 Troponin T 120 Minute 16.69 ng/L (0-15) H 10/06/21 13:30 Delta Troponin T -0.31 ABS# (0-10) L 10/06/21 13:30 Troponin T Hi Sens 6Hr 14.17 ng/L (0-15) 10/06/21 17:00 Troponin T Hi Sens 6Hr Delta -2.83 ng/L (0-12) L 10/06/21 17:00 NT-Pro-B Natriuret Pep 1486 pg/mL (0-450) H 10/06/21 10:52 Total Protein 7.3 g/dL (6.6-8.7) D 10/07/21 04:50 Albumin 4.5 g/dL (3.5-5.2) 10/07/21 04:50 Globulin 2.8 g/dL (1.3-4.6) 10/07/21 04:50 Triglycerides 63 mg/dL (0-150) 10/07/21 04:50 Cholesterol 197 mg/dL (0-200) 10/07/21 04:50 LDL Cholesterol, Calc 131 mg/dL (50-129) H 10/07/21 04:50 Total VLDL Cholesterol 13 mg/dL (0-30) 10/07/21 04:50 HDL Cholesterol 53 mg/dL (60-100) L 10/07/21 04:50 Cholesterol/HDL Ratio 3.72 mg/dL (1.0-5.00) 10/07/21 04:50 Vitamin B12 1019 pg/mL (232-1245) 10/06/21 13:57 Folate > 20.0 ng/mL (4.5-32.2) 10/06/21 17:00 Procalcitonin 0.07 ng/mL (0-0.5) 10/06/21 10:52 TSH 0.46 uIU/mL (0.27-4.20) 10/06/21 13:57 PTH Intact 36.9 pg/mL (15-65) 10/06/21 17:00 Calcium (PTH Intact) 8.5 mg/dL (8.5-10.5) 10/06/21 17:00 Urine Color Yellow (Yellow) 10/06/21 11:00 Urine Appearance Clear (CLEAR) 10/06/21 11:00 Urine pH 5 (5-7) 10/06/21 11:00 Ur Specific [place] 1.010 (1.005-1.030) 10/06/21 11:00 Urine Protein Neg (Negative) 10/06/21 11:00 Urine Glucose (UA) Norm (Normal) 10/06/21 11:00 Urine Ketones Negative (Negative) 10/06/21 11:00 Urine Blood Neg (Negative) 10/06/21 11:00 Urine Nitrate Negative (Negative) 10/06/21 11:00 Urine Bilirubin Neg (Negative) 10/06/21 11:00 Urine Urobilinogen Norm mg/dL (Negative) 10/06/21 11:00 Ur Leukocyte Esterase Negative (Negative) 10/06/21 11:00 Coronavirus 229E (PCR) Not detected (NOT DETECT) 10/06/21 17:00 Influenza Type A Ag Negative (Negative) 10/06/21 17:00 Influenza Type B Ag Negative (Negative) 10/06/21 17:00 SARS-CoV-2 (PCR) Not detected (NOT DETECT) 10/06/21 17:00 Vitals Last Vital Signs Temp 98.3 F 10/08/21 07:22 Pulse 75 10/08/21 08:00 Resp 18 10/08/21 08:00 BP 138/71 10/08/21 07:22 Pulse Ox 86 L 10/08/21 11:40 Discharge Plan Discharge Patient Disposition: Home Condition: Stable Prescriptions: New losartan 50 mg Tablet 50 mg PO DAILY Qty: 30 0RF amlodipine 10 mg Tablet 10 mg PO DAILY 30 Days Qty: 30 0RF ferrous gluconate 324 mg (37.5 mg iron) Tablet 324 mg PO BIDWM Qty: 60 0RF fluticasone propion-salmeterol [Advair Diskus] 250-50 mcg/dose blister with device 1 inh inhalation BID Qty: 60 0RF Spiriva with HandiHaler 18 mcg capsule, w/inhalation device 1 cap inhalation DAILY Qty: 30 0RF Rx Instructions: puncture 1 cap using device; one dose = 2 inhalations prednisone 10 mg tablet See Taper mg PO DAILY Qty: 42 0RF Taper: predniSONE 60-10 60 mg Daily for 2 Days and 0 Hour 50 mg Daily for 2 Days and 0 Hour 40 mg Daily for 2 Days and 0 Hour 30 mg Daily for 2 Days and 0 Hour 20 mg Daily for 2 Days and 0 Hour 10 mg Daily for 2 Days and 0 Hour furosemide [Lasix] 40 mg tablet 40 mg PO DAILY Qty: 30 0RF potassium chloride 10 mEq capsule, extended release 10 meq PO DAILY Qty: 30 0RF Continued aspirin 81 mg Tablet,Chewable 81 mg PO DAILY@12 0RF Hold Instructions: Resume on 01/14/21. levothyroxine 112 mcg Tablet 112 mcg PO DAILY@07 0RF multivitamin Tablet 1 tab PO DAILY@12 0RF Vitamin B-12 50 mcg Tablet 50 mcg PO DAILY Qty: 0 0RF levetiracetam 500 mg tablet 500 mg PO BID 0RF Discontinued lisinopril 5 mg tablet 10 mg PO DAILY@12 0RF hydrocortisone 20 mg tablet See Rx Instructions .ROUTE .COMPLEX 0RF Rx Instructions: 1 tablet (20 mg) po in the morning at 0800, 1/2 tablet (10 mg) po at 1200 Discharge Orders: Discharge Order (Routine); Ordered 10/08/21 Ordered By: Felix Alex Other Ambulatory Orders: DME: Oxygen (Order) Location: None Selected Ordered By: Felix Alex Referrals: Trupti Grace MD [Primary Care Provider] - 1 week Discharge Diet: Usual diet Discharge Activity: Resume usual activity and Increase activity as tolerated Patient Instructions: Opioid Safety Activity Restrictions/Additional Instructions: Please check your blood pressure daily at home and maintain a blood pressure diary and follow-up with her primary care provider within next 1 week for further adjustment of antihypertensives. Lasix has been new medication/water pill which she will be taking it every day going forward. Your blood pressure medications have been changed as well. Do not take lisinopril. Take amlodipine 10 mg daily, losartan 50 mg daily. Please take prednisone as directed as per taper. Discharge Attestations Time Spent in Discharge Care*: greater than 30 min Specific Discharge Activities: educating patient, educating and/or supporting family/caregiver, discussing with clinical case manager/social workers/dc planners, documenting/other paperwork and evaluating patient/reviewing data Status at Discharge: Cognitive status at discharge: cognitively intact, Behavioral status at discharge: cooperative, Functional status at discharge: independent ambulation, Overall status at discharge: patient is back to baseline Quality Metrics Clinical Quality Measures [ No reported AMI, CVA or VTE this stay] Coding Level of Care Code Acute Chg FW DC note Diagnoses Acute respiratory failure with hypoxia J96.01 Acute exacerbation of chronic obstructive airways disease J44.1 Pulmonary hypertension I27.20 Congestive heart failure I50.9 Heart failure type: other Hypokalemia E87.6 Hypocalcemia E83.51 Hypertension I10 Hypertension type: essential hypertension
[2021-10-20 13:28] LABS: PTH Related Peptide (Protein) 10 pg/mL (11-20)
== END 2021-10-08 13:30 | disposition home or self-care (01) | DRG 190 ==
LOC: ER 14:15 → MEDSURG 15:51
PROVIDERS: Emergency Medicine; Admitting Provider Student in an Organized Health Care Education/Training Program; Emergency Provider Physician Assistant; PCP Family Medicine; Visit Provider Student in an Organized Health Care Education/Training Program
DX: J44.1 Chronic obstructive pulmonary disease with (acute) exacerbation (principal); J96.01 Acute respiratory failure with hypoxia; I50.33 Acute on chronic diastolic (congestive) heart failure; Z87.891 Personal history of nicotine dependence; I27.20 Pulmonary hypertension, unspecified; E87.6 Hypokalemia; E83.51 Hypocalcemia; I11.0 Hypertensive heart disease with heart failure; Z79.82 Long term (current) use of aspirin
CPT/HCPCS: 36415; 36600; 71045; 71250; 72131; 80051; 80053; 80061; 81003; 82310; 82330; 82542; 82607; 82746; 82805; 83036; 83540; 83550; 83735; 83880; 83970; 84100; 84145; 84443; 84484; 85025; 85378; 86403; 87449; 87635; 87641; 87804; 93005; 93970; 94640; 94664; 96372; 96374; 99285; J1650; J1940; J2920; J2930; J3490; J7626

== ENCOUNTER → 2021-12-12 09:34 | Outpatient (BNVA) | payer MEDICARE, OTHER, SELFPAY | PROVIDERS: PCP Family Medicine; Visit Provider Podiatrist Foot & Ankle Surgery | DX: L60.3 Nail dystrophy (principal); E11.8 Type 2 diabetes mellitus with unspecified complications; M20.41 Other hammer toe(s) (acquired), right foot; M20.42 Other hammer toe(s) (acquired), left foot; I73.9 Peripheral vascular disease, unspecified | CPT/HCPCS: 11721 ==

== ENCOUNTER → 2021-12-25 09:17 | Outpatient (BNVA) | payer MEDICARE, OTHER, SELFPAY | PROVIDERS: PCP Family Medicine; Visit Provider Internal Medicine Pulmonary Disease | DX: G47.33 Obstructive sleep apnea (adult) (pediatric) (principal); R06.02 Shortness of breath; G47.34 Idiopathic sleep related nonobstructive alveolar hypoventilation; G93.3 Postviral and related fatigue syndromes; J44.9 Chronic obstructive pulmonary disease, unspecified; Z87.891 Personal history of nicotine dependence | CPT/HCPCS: 99214 ==

== ENCOUNTER → 2022-04-10 08:20 | Outpatient (BNVA) | payer MEDICARE, OTHER, SELFPAY | PROVIDERS: PCP Family Medicine; Visit Provider Podiatrist Foot & Ankle Surgery | DX: E11.8 Type 2 diabetes mellitus with unspecified complications (principal); L60.3 Nail dystrophy; M20.41 Other hammer toe(s) (acquired), right foot; M20.42 Other hammer toe(s) (acquired), left foot; I73.9 Peripheral vascular disease, unspecified; L84 Corns and callosities | CPT/HCPCS: 11055; 11721 ==

== ENCOUNTER 2022-04-25 21:46 | Emergency (ER) | payer MEDICARE, OTHER, SELFPAY ==
[2022-04-25 21:52] VITALS: BP 137/78; PULSE 83; RESP 16; TEMP 36.3; O2SAT 92; BMI 35.2
--- NOTE | 2022-04-25 22:24 | CTR_ITS ---
PROCEDURE INFORMATION: Exam: CT Abdomen And Pelvis Without Contrast Exam date and time: 04/25/2022 11:37 PM Age: 86 years old Clinical indication: Other: Hematuiria; Prior surgery; Surgery type: Small intestine; Additional info: Hematuria TECHNIQUE: Imaging protocol: Computed tomography of the abdomen and pelvis without contrast. Radiation optimization: All CT scans at this facility use at least one of these dose optimization techniques: automated exposure control; mA and/or kV adjustment per patient size (includes targeted exams where dose is matched to clinical indication); or iterative reconstruction. COMPARISON: CT abdomen pelvis w con* [id number] 02/20/2021 8:21 AM RADIATION DOSE METRICS: Total DLP (mGy-cm): 1231 FINDINGS: Limitations: The absence of intravenous contrast lessens the sensitivity of this study for solid organ abnormalities. Lungs: There is a 16 x 23 mm sized oval noncalcified nodule left lung base. Allowing for differences in scanning technique and respiratory motion artifact this is not significantly changed from 03/12/2021. This is also stable compared with 11/24/2017 and 02/02/2016 CT chest and is therefore highly likely to be benign. There is some platelike atelectasis at the lung bases. Heart: There is severe atherosclerotic calcification of the coronary arteries. Liver: There is a diffuse decrease in hepatic parenchymal density, consistent with mild fatty infiltration. The liver has a nodular contour and there is relative hypertrophy of the caudate lobe, consistent with cirrhosis. There is no focal abnormality within the liver. Gallbladder and bile ducts: There has been a cholecystectomy. Common bile duct is mildly prominent but not unusual for patient post cholecystectomy. Pancreas: The pancreas is normal. Spleen: The spleen is normal. Adrenal glands: The adrenal glands are normal. Kidneys and ureters: There are benign-appearing simple cysts in both kidneys not significantly changed. There is no evidence of hydronephrosis. There is no evidence of renal or ureteral calcifications. Stomach and bowel: Moderate diverticulosis is present in the distal colon. There is no evidence of colitis/diverticulitis. Appendix: There has been an appendectomy. Intraperitoneal space: There is no evidence of free intraperitoneal fluid. Vasculature: The aorta demonstrates moderate atherosclerotic calcification. There is no evidence of an abdominal aortic aneurysm. Lymph nodes: There is no evidence of lymphadenopathy. Urinary bladder: Unremarkable as visualized. Reproductive: The prostate gland demonstrates nonspecific parenchymal calcifications. Bones/joints: There is multilevel lumbar stenosis. The lumbar spine demonstrates moderate degenerative changes at multiple levels. There is mild scoliosis concave to the right. Appearance of the spine is not changed from 02/20/2021. Soft tissues: Unremarkable. CT/CT kidney stone [id number] IMPRESSION: 1. Stable appearance of left lower lobe pulmonary nodule 2. Cirrhosis and fatty liver 3. No acute finding in the abdomen or pelvis.
--- NOTE | 2022-04-25 22:25 | ED_ITS ---
HPI - Male Genitourinary General: Chief complaint: Urogenital-Male Stated complaint: blood in urine Time Seen by Provider: 04/25/22 22:19 Source: patient Mode of arrival: ambulatory Limitations: no limitations History of Present Illness: 86-year-old male states that he has had 2 episodes of hematuria tonight he states when he went to urinate at 6 and 8 beats had some blood in his urine. He states that it did clear towards the end of his stream is only at the start of the stream denies any clots. Denies any pain denies any fever states he has never had hematuria before. Associated symptoms: Reports hematuria; Deny nausea or vomiting Review of Systems Const: Denies: fever(s), chills, body aches or change in appetite Eyes: Denies: blurry vision or eye discomfort ENMT: Denies: throat pain or dental pain Card: Denies: chest pain Resp: Denies: dyspnea GI: Denies: abdominal pain, nausea, vomiting or diarrhea : Reports: hematuria Musc: Denies: neck pain or back pain Skin/Breast: Denies: rash Neuro: Denies: headache(s) Psych: Denies: depression Gumaro/Lymph: Denies: easy bruising All/Imm: Denies: urticaria PFSH ED PFSH: Medical History Acute encephalopathy Acute respiratory failure with hypoxia Adrenal insufficiency CHERI (acute kidney injury) Altered mental status CHF (congestive heart failure) COPD (chronic obstructive pulmonary disease) COVID-19 Elevated brain natriuretic peptide (BNP) level Elevated d-dimer Elevated lactic acid level Gallbladder polyp Hypertension Hypothyroidism Hypoxia Lung nodule NSTEMI (non-ST elevated myocardial infarction) NSVT (nonsustained ventricular tachycardia) Oral thrush REX (obstructive sleep apnea) Peripheral arterial disease Pneumonia Pulmonary hypertension PVD (peripheral vascular disease) Recurrent syncope Renal insufficiency Sepsis Septic shock Thyroid disease Surgical History H/O brain surgery History of gastric surgery History of prostate surgery Family History Denies family history of Diabetes CAD (coronary artery disease) Clotting disorder Dementia Hyperlipidemia Psychiatric illness Chronic kidney disease (CKD) Suicide Anesthesia complication Bleeding disorder Family history of premature coronary artery disease Lung disease Cancer Hypertension Stroke Social History Smoking and tobacco status: former smoker Quit status (tobacco): has quit using tobacco Year quit tobacco: 1999 [id number] cig/pipe Second hand smoke exposure: No Smoking risk assessment/counseling performed?: Yes Alcohol intake: never Lives independently: Yes Household members: spouse Housing: House Marital status: service: No Current occupational status: retired Pets and animals: No History of recent travel: No Current gender identity: Male Physical Exam Const: COMMON NORMALS: no acute distress, patient oriented x3 and healthy appearing HENMT: COMMON NORMALS: normocephalic and atraumatic HEAD & SCALP: normocephalic and atraumatic Eye: COMMON NORMALS: Equal, round and reactive pupils present and EOMs intact bilaterally PUPIL: Yes Equal, round and reactive pupils present Neck/C-Spine: COMMON NORMALS: full ROM and supple Chest: COMMONS NORMALS: normal inspection of the chest and normal palpation of entire chest wall Resp: COMMON NORMALS: normal respiratory effort, No retractions, No use of accessory muscles and clear to auscultation bilaterally AUSCULTATION: clear to auscultation bilaterally Cardio: COMMON NORMALS: regular rate, regular rhythm and No murmurs present (Cardio) RATE: regular rate RHYTHM: regular rhythm GI: COMMON NORMALS: Normal to inspection, nondistended, normoactive bowel sounds present, Soft to palpation, non-tender and no masses PALPATION: Yes Soft to palpation Extremity: COMMON NORMALS: normal to inspection and full ROM Neuro: COMMON NORMALS: patient oriented x3, moves all extremities and no focal motor deficits Psych: COMMON NORMALS: mental status grossly normal, Normal thought process present and cooperative THOUGHT PROCESS: Normal thought process present Skin: COMMON NORMALS: no rashes or lesions noted and no wounds GENERAL SKIN EXAM: no rashes or lesions noted Course Vital Signs: Vital signs: Vital Signs Temperature 97.3 F L 04/25/22 21:52 Pulse Rate 83 04/25/22 21:52 Respiratory Rate 16 04/25/22 21:52 Blood Pressure 137/78 04/25/22 21:52 Pulse Oximetry 92 04/25/22 21:52 Oxygen Delivery Ms thod 04/25/22 21:52 MDM - Male Medical Decision Making Patient presents with hematuria he is well-appearing here he is able to urinate normal we will get him follow-up with Dr. Benjamin urology we will place him on antibiotics he is to follow-up and return if worsening. Lab Data : 04/26/22 00:40 11 22:50 Radiology Impressions Abdomen/Pelvis CT 04/25/22 22:24 IMPRESSION: 1. Stable appearance of left lower lobe pulmonary nodule 2. Cirrhosis and fatty liver 3. No acute finding in the abdomen or pelvis. Laboratory Results WBC 6.0 10^3/uL (4.0-10.0) 04/26/22 00:40 Corrected WBC Cancelled 04/25/22 22:50 RBC 4.05 10^6/uL (4.1-5.3) L 04/26/22 00:40 Hgb 12.8 g/dL (11.7-16.6) 04/26/22 00:40 Hct 39.5 % (42.0-52.0) L 04/26/22 00:40 MCV 97.5 fl (80-94) H 04/26/22 00:40 MCH 31.6 pg (28.0-34.0) 04/26/22 00:40 MCHC 32.4 g/dL (30.0-36.0) 04/26/22 00:40 RDW 12.4 % (12.1-15.1) 04/26/22 00:40 Plt Count 135 10^3/cmm (130-400) 04/26/22 00:40 MPV 9.6 fL (7.4-10.4) 04/26/22 00:40 Gran % Cancelled 04/25/22 22:50 Neut % (Auto) 44.5 % 04/26/22 00:40 Lymph % (Auto) 40.0 % 04/26/22 00:40 [place] % (Auto) 12.3 % 04/26/22 00:40 Eos % (Auto) 2.0 % 04/26/22 00:40 Baso % (Auto) 0.5 % 04/26/22 00:40 Neut # (Auto) 2.69 10^3/uL (1.8-7.7) 04/26/22 00:40 Lymph # (Auto) 2.4 10^3/uL (0.8-4.8) 04/26/22 00:40 [place] # (Auto) 0.7 10^3/uL (0.2-0.9) 04/26/22 00:40 Eos # (Auto) 0.1 10^3/uL (0.0-0.8) 04/26/22 00:40 Baso # (Auto) 0.0 10^3/uL (0.0-0.1) 04/26/22 00:40 Absolute Gran (auto) Cancelled 04/25/22 22:50 Nucleated RBC % (auto) 0 % 04/26/22 00:40 Nucleated RBCs # 0.0 /100WBC 04/26/22 00:40 Sodium 140 mmol/L (136-145) 04/25/22 22:50 Potassium 4.0 mmol/L (3.5-5.1) 04/25/22 22:50 Chloride 98 mmol/L (98-107) 04/25/22 22:50 Carbon Dioxide 32 mmol/L (22-29) H 04/25/22 22:50 Anion Gap 14.0 (5-19) 04/25/22 22:50 BUN 20 mg/dL (8-23) 04/25/22 22:50 Creatinine 1.2 mg/dL (0.7-1.2) 04/25/22 22:50 GFR Calculation Not Reportable 04/25/22 22:50 Glucose 168 mg/dL (65-115) H 04/25/22 22:50 Calculated Osmolality 296 mOsm/kg (285-295) H 04/25/22 22:50 Calcium 9.2 mg/dL (8.5-10.5) 04/25/22 22:50 Total Bilirubin 0.3 mg/dL (0.15-1.2) 04/25/22 22:50 AST 38 U/L (0-40) 04/25/22 22:50 ALT 35 U/L (0-41) 04/25/22 22:50 Alkaline Phosphatase 44 U/L (40-130) 04/25/22 22:50 Total Protein 7.3 g/dL (6.6-8.7) 04/25/22 22:50 Albumin 4.1 g/dL (3.5-5.2) 04/25/22 22:50 Globulin 3.2 g/dL (1.3-4.6) 04/25/22 22:50 Urine Color Red (Yellow) 04/25/22 22:37 Urine Appearance Cloudy (CLEAR) A 04/25/22 22:37 Urine pH 5 (5-7) 04/25/22 22:37 Ur Specific [place] 1.025 (1.005-1.030) 04/25/22 22:37 Urine Protein 3+ (Negative) H 04/25/22 22:37 Urine Glucose (UA) Norm (Normal) 04/25/22 22:37 Urine Ketones Negative (Negative) 04/25/22 22:37 Urine Blood 3+ (Negative) H 04/25/22 22:37 Urine Nitrate Negative (Negative) 04/25/22 22:37 Urine Bilirubin Neg (Negative) 04/25/22 22:37 Urine Urobilinogen Norm mg/dL (Negative) 04/25/22 22:37 Ur Leukocyte Esterase Negative (Negative) 04/25/22 22:37 Urine RBC Too numerous to cnt /hpf (0-2) H 04/25/22 22:37 Urine WBC 0-4 /hpf (0-5) H 04/25/22 22:37 Ur Squamous Epith Cells None /hpf (0-5) 04/25/22 22:37 Amorphous Sediment 1+ /hpf 04/25/22 22:37 Urine Bacteria None /hpf (NONE) 04/25/22 22:37 Discharge Plan Discharge Patient Disposition: Home Clinical Impression: Hematuria Condition: Stable Prescriptions: New cephalexin 500 mg capsule 500 mg PO TID 7 Days Qty: 21 0RF No Action amlodipine 10 mg tablet 10 mg PO DAILY hydrocortisone 20 mg tablet See Rx Instructions PO DAILY Rx Instructions: 1 tablet in the morning and 0.5tablet in the evening aspirin 81 mg Tablet,Chewable 81 mg PO DAILY@12 Hold Instructions: Resume on 01/14/21. levothyroxine 112 mcg Tablet 112 mcg PO DAILY@07 multivitamin Tablet 1 tab PO DAILY@12 Vitamin B-12 50 mcg Tablet 50 mcg PO DAILY Qty: 0 levetiracetam 500 mg tablet 500 mg PO BID losartan 50 mg Tablet 50 mg PO DAILY Qty: 30 0RF ferrous gluconate 324 mg (37.5 mg iron) Tablet 324 mg PO BIDWM Qty: 60 0RF Advair Diskus 250-50 mcg/dose blister with device 1 inh inhalation BID Qty: 60 0RF Spiriva with HandiHaler 18 mcg capsule, w/inhalation device 1 cap inhalation DAILY Qty: 30 0RF Rx Instructions: puncture 1 cap using device; one dose = 2 inhalations Lasix 40 mg tablet 40 mg PO DAILY Qty: 30 0RF potassium chloride 10 mEq capsule, extended release 10 meq PO DAILY Qty: 30 0RF Discharge Orders: Discharge ED (Routine); Ordered 04/26/22 Ordered By: Stacia Mcdaniel Referrals: Trupti Grace MD [Primary Care Provider] - Case Benjamin MD [Physician] - 1-3 days Discharge Diet: Advance as tolerated Discharge Activity: Resume usual activity Patient Instructions: Hematuria (ED) Coding Level of Care Code ED Global Account Manager for Chg Fwd Exam Comprehensive
[2022-04-25 22:47] LABS: Bilirubin Urine Neg (Negative); Blood Urine 3+ (Negative); Glucose Urine UA Norm (Normal); Ketones Urine Negative (Negative); Leukocyte Esterase Urine Negative (Negative); Nitrate Urine Negative (Negative); Protein Urine 3+ (Negative); Specific Gravity, Urine 1.025 (1.005-1.030); Urine Appearance Cloudy (CLEAR); Urine Color Red (Yellow); Urobilinogen Urine Norm (Negative); pH Urine 5 (5-7)
[2022-04-25 22:48] LABS: Add Urine Microscopic? YES; Amorphous Sediment Urine 1+ /hpf; RBC Urine TOO NUMEROUS TO CNT /hpf (0-2); WBC Urine 0-4 /hpf (0-5)
[2022-04-25 22:49] LABS: Add Urine Culture? No
[2022-04-25 23:12] LABS: Alanine Aminotransferase 35 U/L (0-41); Albumin Level 4.1 g/dL (3.5-5.2); Alkaline Phosphatase 44 U/L (40-130); Aspartate Amino Transferase 38 U/L (0-40); Blood Urea Nitrogen 20 mg/dL (8-23); Calcium 9.2 mg/dL (8.5-10.5); Carbon Dioxide 32 mmol/L (22-29); Chloride 98 mmol/L (98-107); Globulin 3.2 g/dL (1.3-4.6); Glucose 168 mg/dL (65-115); Osmolality Calculated 296 mOsm/kg (285-295); Sodium 140 mmol/L (136-145); Total Bilirubin 0.3 mg/dL (0.15-1.2); Total Protein 7.3 g/dL (6.6-8.7)
[2022-04-26 00:42] LABS: Basophils % 0.5 %; Eosinophils # 0.1 10^3/uL (0.0-0.8); Hematocrit 39.5 % (42.0-52.0); Hemoglobin 12.8 g/dL (11.7-16.6); Lymphocytes # 2.4 10^3/uL (0.8-4.8); Mean Corpuscular HGB Conc 32.4 g/dL (30.0-36.0); Mean Corpuscular Hemoglobin 31.6 pg (28.0-34.0); Mean Corpuscular Volume 97.5 fl (80-94); Mean Platelet Volume 9.6 fL (7.4-10.4); Monocytes # 0.7 10^3/uL (0.2-0.9); Monocytes % 12.3 %; Neutrophils # 2.69 10^3/uL (1.8-7.7); Neutrophils % 44.5 %; Nucleated Red Blood Cells % 0 %; Platelet Count 135 10^3/cmm (130-400); Red Blood Count 4.05 10^6/uL (4.1-5.3); Red Cell Distribution Width 12.4 % (12.1-15.1)
[2022-04-26 01:04] VITALS: BP 132/78; PULSE 88; RESP 22; O2SAT 98
--- NOTE | 2022-04-26 10:14 | DCPLANNER ---
Addendum entered by [place] Ocho[place] 05/08/22 12:56: Patient had a follow up appointment scheduled for 05.02.[address] Benjamin at urology - patient did attend appointment. Original Note: manager water had message to schedule a follow up appointment for patient with urology. manager water sent patients information to the front office staff at urology. Patients information will be printed and reviewed. Clinic will call patient with appointment information.
== END 2022-04-26 01:05 | disposition home or self-care (01) ==
PROVIDERS: Emergency Provider Emergency Medicine; PCP Family Medicine
DX: R31.9 Hematuria, unspecified (principal); Z79.82 Long term (current) use of aspirin; Z87.891 Personal history of nicotine dependence; I11.0 Hypertensive heart disease with heart failure; I50.9 Heart failure, unspecified; J44.9 Chronic obstructive pulmonary disease, unspecified; I25.2 Old myocardial infarction
CPT/HCPCS: 74176; 80053; 81001; 85025; 99284

== ENCOUNTER → 2022-05-02 14:20 | Outpatient (BNVA) | payer MEDICARE, OTHER, SELFPAY | PROVIDERS: PCP Family Medicine; Visit Provider Urology | DX: C67.9 Malignant neoplasm of bladder, unspecified (principal); R31.0 Gross hematuria; N48.0 Leukoplakia of penis | CPT/HCPCS: 52224; 81003; 99203 ==

== ENCOUNTER 2022-05-22 09:55 | Inpatient (IN) | payer MEDICARE, OTHER, SELFPAY ==
[2022-05-22] VITALS (8 sets, daily range): BP systolic 109–160; BP diastolic 56–84; PULSE 84–112; RESP 17–21; TEMP 36.8–37.4; O2SAT 92–95; BMI 25.0; BMI 35.3
--- NOTE | 2022-05-22 10:22 | ECG_ITS ---
[facility] Test Date: 2022-05-22 Pat Name: Rashid Bolivar Department: Room: Gender: Male Shoe Treer: : 1935 Requested By: Willis Sabillon Order Number: [id number] Jean MD: Adali Lopez M.D. Measurements Intervals [place] Rate: 100 P: 20 [place]: 163 QRS: 199 QRSD: 110 T: 53 QT: 360 QTc: 466 Interpretive Statements SINUS TACHYCARDIA INDETERMINATE AXIS INCOMPLETE RIGHT BUNDLE BRANCH BLOCK MODERATE T-WAVE ABNORMALITY, CONSIDER LATERAL ISCHEMIA Compared to ECG 10/06/2021 12:04:00 Right bundle-branch block now present Sinus rhythm no longer present Incomplete right bundle-branch block no longer present T-wave abnormality still present Possible ischemia still present Electronically Signed On 05-22-2022 12:51:58 [employer]WN [employer] GARDEN TECHNICIAN by Adali Lopez M.D. [email or web address] [id number]
--- NOTE | 2022-05-22 10:26 | ED_ITS ---
HPI - Nausea/Vomiting/Diarrhea General: Chief complaint: Nausea/Vomiting/Diarrhea Stated complaint: Diarrhea Time Seen by Provider: 05/22/22 09:59 Source: patient Mode of arrival: ambulatory History of Present Illness: 86-year-old male presents emergency room via EMS with weakness diarrhea for last 3 days he has had copious diarrhea point where its become difficult for his to care for him. He normally is on oxygen 2 L/min at home. His and son are at the bedside he is not able to give much for history he just tells me that he feels like he is dying. He is normally on 2 L/min we have him up to 4 L range maintaining sats in the mid low 90s. He did deny any chest pain. stated there is no bright red blood or maroonish colored stools for dark brown stool has not recently been on antibiotics. She not have a fever that they have noted. MD elicited complaint: nausea and diarrhea Onset (ago): day(s) Description of diarrhea: watery and semi-solid Associated nausea: Yes Associated abdominal pain: Yes Location of pain: Diffuse Pain consistency: intermittent Severity: moderate Quality: cramping Exacerbating factors: movement Relieving factors: none Associated symtoms: Reports altered mental status, bloating, anorexia and nausea; Denies anxiety, change in vision, chest pain, cough, diaphoresis, decreased urine output, dizziness, dysuria, epistaxis, fatigue, fecal incontinence, fevers/chills, headache(s), malaise, myalgias, numbness, palpitations, rash, short of breath, syncope, tenesmus, tinnitus or weakness Review of Systems Const: Denies: fever(s), chills, fatigue, malaise or diaphoresis Eyes: Denies: change in vision ENMT: Denies: tinnitus or epistaxis Card: Denies: chest pain, palpitations or syncope GI: Reports: abdominal pain, nausea, diarrhea and bloating; Denies: fecal incontinence : Denies: dysuria, urinary frequency or urinary urgency Neuro: Denies: headache(s) or dizziness Psych: Denies: anxiety [facility] ED PFSH: Medical History (Updated 05/24/22 @ 08:10 by Willis Gonzales DO) Acute encephalopathy Acute exacerbation of chronic obstructive airways disease Acute respiratory failure with hypoxia Acute respiratory failure with hypoxia Adrenal insufficiency CHERI (acute kidney injury) Altered mental status Bilateral leg edema Bladder cancer Callus of foot CHF (congestive heart failure) Chronic respiratory failure with hypoxia COPD (chronic obstructive pulmonary disease) COVID-19 COVID-19 Dyspnea on exertion Elevated brain natriuretic peptide (BNP) level Elevated d-dimer Elevated lactic acid level Gallbladder polyp Gross hematuria Hammertoes of both feet Hospital discharge follow-up Hypertension Hypocalcemia Hypothyroidism Hypoxia [place]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 Lingular pneumonia Lung nodule Nocturnal hypoxia NSTEMI (non-ST elevated myocardial infarction) NSVT (nonsustained ventricular tachycardia) Onychodystrophy Oral thrush REX (obstructive sleep apnea) Peripheral arterial disease Pneumonia Post viral syndrome Postop check Pulmonary hypertension PVD (peripheral vascular disease) Recurrent syncope Renal insufficiency Rhinovirus Sepsis Septic shock Syncope Thyroid disease Surgical History H/O brain surgery History of gastric surgery History of prostate surgery Family History Denies family history of Diabetes CAD (coronary artery disease) Clotting disorder Dementia Hyperlipidemia Psychiatric illness Chronic kidney disease (CKD) Suicide Anesthesia complication Bleeding disorder Family history of premature coronary artery disease Lung disease Cancer Hypertension Stroke Social History Smoking and tobacco status: former smoker Quit status (tobacco): has quit using tobacco Year quit tobacco: 1999 [id number] cig/pipe Second hand smoke exposure: No Smoking risk assessment/counseling performed?: Yes Alcohol intake: never Lives independently: Yes Household members: spouse Housing: House Marital status: service: No Current occupational status: retired Pets and animals: No History of recent travel: No Current gender identity: Male Physical Exam Const: COMMON NORMALS: no acute distress EXAM LIMITATIONS: altered mental status GENERAL APPEARANCE: cooperative and comfortable ORIENTATION/CONSCIOUSNESS: Yes awake, Yes oriented to person, Yes oriented to place and Yes oriented to time HENMT: COMMON NORMALS: normocephalic, atraumatic and hearing grossly normal bilaterally HEAD & SCALP: normocephalic and atraumatic Resp: COMMON NORMALS: normal respiratory effort, No retractions, No use of accessory muscles and clear to auscultation bilaterally AUSCULTATION: clear to auscultation bilaterally Cardio: COMMON NORMALS: regular rate, regular rhythm and No murmurs present (Cardio) RATE: regular rate RHYTHM: regular rhythm GI: COMMON NORMALS: Soft to palpation and No hepatosplenomegaly present AUSCULTATION: Yes normoactive bowel sounds PALPATION: Yes Soft to palpation, No Tenderness to palpation present (GI), No Guarding due to palpation present (GI) and Yes No hepatosplenomegaly present Extremity: COMMON NORMALS: normal to inspection, capillary refill normal, no clubbing, cyanosis or edema, no calf tenderness and no pedal edema Neuro: SENSORIUM/ORIENTATION: Yes oriented to person, Yes oriented to place and Yes oriented to time OTHER: Patient drowsy but responsive no focal neurologic deficits noted Skin: COMMON NORMALS: no rashes or lesions noted GENERAL SKIN EXAM: no rashes or lesions noted Course Vital Signs: Vital signs: Vital Signs Temperature 98.6 F 05/24/22 04:00 Pulse Rate 82 05/24/22 04:00 Respiratory Rate 18 05/24/22 04:00 Blood Pressure 117/57 05/24/22 04:00 Pulse Oximetry 90 05/24/22 04:00 Oxygen Delivery Ms thod 05/24/22 04:00 Oxygen Flow Rate 3 05/23/22 00:00 Fraction of Inspir ed Oxygen 40 05/24/22 00:00 MDM - Nausea/Vomiting/Diarrhea Medical Decision Making Patient is requiring oxygen. Chest x-ray does not show anything acute. Discussed CT said fever enteritis no acute intra-abdominal findings. Is having incontinence as well as large amount of diarrhea we will check to see deficits lactic acid is elevated his other labs are not significantly abnormal. We attempted to give him fluids to reduce lactic acid but it persisted elevated. He is not on metformin. Urine showed 4+ bacteria but no white blood cells. He is somewhat improved after fluids but still fairly confused. According to the family he is usually much more interactive and aware and able to manage himself. Discussed with hospitalist will place in observation continue IV fluids. Medical Records I reviewed the patient's medical records. Lab Data I reviewed the patient's lab results. 05/22/22 11:33 05/22/22 11:33 Radiology Impressions Abdomen/Pelvis CT 05/22/22 10:32 IMPRESSION: Favor enteritis. COMMENTS: Consistent with the [employer]'s Incidental Findings Committee white paper (J Am Aida Radiol 2018): Any incidental renal lesion less than 1 cm or classified as too small to characterize, or any incidental cystic renal lesion characterized as simple-appearing, is likely benign. No follow-up imaging is recommended for these lesions per consensus recommendations based on imaging criteria. Chest X-Ray 05/22/22 16:56 IMPRESSION: 1. Atelectasis or scarring in the right mid lung and left lung base not significantly changed. 2. Enlarged central pulmonary artery suggesting pulmonary hypertension. 3. Mild cardiomegaly. Head CT 05/23/22 14:21 IMPRESSION: 1. No acute intracranial hemorrhage or edema. 2. Atrophy and small vessel ischemic disease with lacunar infarcts. Notified Carlos Castaneda MD at 05/23/2022 2:29 PM. Laboratory Results WBC 6.1 10^3/uL (4.0-10.0) 05/23/22 04:54 RBC 4.32 10^6/uL (4.1-5.3) 05/23/22 04:54 Hgb 13.5 g/dL (11.7-16.6) 05/23/22 04:54 Hct 43.3 % (42.0-52.0) 05/23/22 04:54 MCV 100.2 fl (80-94) H 05/23/22 04:54 MCH 31.3 pg (28.0-34.0) 05/23/22 04:54 MCHC 31.2 g/dL (30.0-36.0) 05/23/22 04:54 RDW 13.2 % (12.1-15.1) 05/23/22 04:54 Plt Count 147 10^3/cmm (130-400) 05/23/22 04:54 MPV 10.5 fL (7.4-10.4) H 05/23/22 04:54 Neut % (Auto) 79.8 % 05/23/22 04:54 Lymph % (Auto) 12.5 % 05/23/22 04:54 [place] % (Auto) 7.0 % 05/23/22 04:54 Eos % (Auto) 0.0 % 05/23/22 04:54 Baso % (Auto) 0.2 % 05/23/22 04:54 Neut # (Auto) 4.90 10^3/uL (1.8-7.7) 05/23/22 04:54 Lymph # (Auto) 0.8 10^3/uL (0.8-4.8) 05/23/22 04:54 [place] # (Auto) 0.4 10^3/uL (0.2-0.9) 05/23/22 04:54 Eos # (Auto) 0.0 10^3/uL (0.0-0.8) 05/23/22 04:54 Baso # (Auto) 0.0 10^3/uL (0.0-0.1) 05/23/22 04:54 Nucleated RBC % (auto) 0 % 05/23/22 04:54 Nucleated RBCs # 0.0 /100WBC 05/23/22 04:54 Sodium 141 mmol/L (136-145) 05/23/22 04:54 Potassium 3.5 mmol/L (3.5-5.1) 05/23/22 04:54 Chloride 102 mmol/L (98-107) 05/23/22 04:54 Carbon Dioxide 29 mmol/L (22-29) 05/23/22 04:54 Anion Gap 13.5 (5-19) 05/23/22 04:54 BUN 24 mg/dL (8-23) H 05/23/22 04:54 Creatinine 1.3 mg/dL (0.7-1.2) H 05/23/22 04:54 GFR Calculation Not Reportable 05/23/22 04:54 Glucose 184 mg/dL (65-115) H 05/23/22 04:54 Calculated Osmolality 300 mOsm/kg (285-295) H 05/22/22 11:33 Lactic Acid 3.8 mmol/L (0.5-2.2) H 05/22/22 11:33 Lactic Acid (Sepsis) 3.5 mmol/L (0.5-2.2) H 05/22/22 14:58 Calcium 8.4 mg/dL (8.5-10.5) L 05/23/22 04:54 Phosphorus 3.3 mg/dL (2.5-4.5) 05/23/22 04:54 Magnesium 1.9 mg/dL (1.7-2.3) 05/23/22 04:54 Total Bilirubin 0.6 mg/dL (0.15-1.2) 05/22/22 11:33 AST 47 U/L (0-40) H 05/22/22 11:33 ALT 37 U/L (0-41) 05/22/22 11:33 Alkaline Phosphatase 47 U/L (40-130) 05/22/22 11:33 Total Protein 7.0 g/dL (6.6-8.7) 05/22/22 11:33 Albumin 3.7 g/dL (3.5-5.2) 05/23/22 04:54 Globulin 3.2 g/dL (1.3-4.6) 05/22/22 11:33 Urine Color Yellow (Yellow) 05/22/22 14:38 Urine Appearance Clear (CLEAR) 05/22/22 14:38 Urine pH 5 (5-7) 05/22/22 14:38 Ur Specific [place] 1.020 (1.005-1.030) 05/22/22 14:38 Urine Protein Trace (Negative) 05/22/22 14:38 Urine Glucose (UA) Norm (Normal) 05/22/22 14:38 Urine Ketones 1+ (Negative) H 05/22/22 14:38 Urine Blood Neg (Negative) 05/22/22 14:38 Urine Nitrate Negative (Negative) 05/22/22 14:38 Urine Bilirubin 1+ (Negative) H 05/22/22 14:38 Urine Urobilinogen Norm mg/dL (Negative) 05/22/22 14:38 Ur Leukocyte Esterase Negative (Negative) 05/22/22 14:38 Urine RBC None /hpf (0-2) 05/22/22 14:38 Urine WBC None /hpf (0-5) 05/22/22 14:38 Ur Squamous Epith Cells 0-4 /hpf (0-5) H 05/22/22 14:38 Amorphous Sediment 2+ /hpf 05/22/22 14:38 Urine Bacteria 4+ /hpf (NONE) H 05/22/22 14:38 SARS-CoV-2 Ag (Rapid) negative (Negative) 05/22/22 21:29 Discharge Plan Discharge Patient Disposition: Admitted As Inpatient Admit Provider: Carlos Castaneda Clinical Impression: Metabolic encephalopathy, Lactic acidosis, Hypothyroidism, Hypertension Condition: Stable Coding Level of Care Code ED Straightener [employer] Parts for Jose Rojas
--- NOTE | 2022-05-22 10:32 | CTR_ITS ---
PROCEDURE INFORMATION: Exam: CT Abdomen And Pelvis Without Contrast Exam date and time: 05/22/2022 11:09 AM Age: 86 years old Clinical indication: Abdominal pain; Prior surgery; Surgery type: Small intestine; Patient HX: Weakness, diarrhea x 3 days , HX of bladder cancer TECHNIQUE: Imaging protocol: Computed tomography of the abdomen and pelvis without contrast. Radiation optimization: All CT scans at this facility use at least one of these dose optimization techniques: automated exposure control; mA and/or kV adjustment per patient size (includes targeted exams where dose is matched to clinical indication); or iterative reconstruction. COMPARISON: CT kidney stone [id number] 04/25/2022 11:37 PM RADIATION DOSE METRICS: Total DLP (mGy-cm): 1224.93 FINDINGS: Limitations: The study is technically limited by breathing motion artifact. Lungs: There is an unchanged noncalcified left lower lobe nodule. Coronary arteries: Calcified coronary artery atherosclerotic plaque visualized. Liver: There is fatty change involving the liver parenchyma. The liver margin is slightly nodular which could indicate cirrhosis. Gallbladder and bile ducts: Prior cholecystectomy. No biliary ductal dilatation allowing for that. Pancreas: No peripancreatic inflammation. No pancreatic ductal dilation. Spleen: The spleen is homogeneous and is not enlarged. Adrenal glands: No adrenal mass. Kidneys and ureters: No hydronephrosis. No nephrolithiasis. There are bilateral simple appearing renal cysts measuring up to approximately 3.5 cm in size. Stomach and bowel: No bowel obstruction. There is diverticulosis, primarily in the descending colon and sigmoid colon, without diverticulitis. Prior small bowel surgery. There is fluid in multiple loops of small bowel, and in the colon from the cecum to the splenic flexure, with air-fluid levels but without significant distention. Appendix: Prior appendectomy. Intraperitoneal space: No ascites or pneumoperitoneum. Vasculature: No abdominal aortic aneurysm. Lymph nodes: No pathologically enlarged lymph nodes. Urinary bladder: No urinary bladder calculus or wall thickening. Reproductive: Unremarkable as visualized. Bones/joints: Curvature of the lumbar spine convex to the left associated with multilevel disc degeneration and facet arthropathy. Soft tissues: No acute soft tissue abnormality. CT/CT abdomen pelvis wo con [id number] IMPRESSION: Favor enteritis. COMMENTS: Consistent with the [employer]'s Incidental Findings Committee white paper (J Am Aida Radiol 2018): Any incidental renal lesion less than 1 cm or classified as too small to characterize, or any incidental cystic renal lesion characterized as simple-appearing, is likely benign. No follow-up imaging is recommended for these lesions per consensus recommendations based on imaging criteria.
[2022-05-22] MEDS: sodium chloride 0.9% 1,000 ML 999 ML IV ×2 (11:36→14:47)
[2022-05-22 11:41] LABS: Hematocrit 44.3 % (42.0-52.0); Hemoglobin 14.3 g/dL (11.7-16.6); Lymphocytes # 0.6 10^3/uL (0.8-4.8); Lymphocytes % 9.2 %; Mean Corpuscular HGB Conc 32.3 g/dL (30.0-36.0); Mean Corpuscular Hemoglobin 31.7 pg (28.0-34.0); Mean Corpuscular Volume 98.2 fl (80-94); Mean Platelet Volume 10.1 fL (7.4-10.4); Monocytes # 0.4 10^3/uL (0.2-0.9); Monocytes % 6.1 %; Neutrophils # 5.43 10^3/uL (1.8-7.7); Neutrophils % 84.4 %; Nucleated Red Blood Cells % 0 %; Platelet Count 151 10^3/cmm (130-400); Red Blood Count 4.51 10^6/uL (4.1-5.3); Red Cell Distribution Width 12.8 % (12.1-15.1); White Blood Count 6.4 10^3/uL (4.0-10.0)
[2022-05-22 11:59] LABS: Alanine Aminotransferase 37 U/L (0-41); Albumin Level 3.8 g/dL (3.5-5.2); Alkaline Phosphatase 47 U/L (40-130); Anion Gap 15.5 (5-19); Aspartate Amino Transferase 47 U/L (0-40); Blood Urea Nitrogen 25 mg/dL (8-23); Calcium 8.8 mg/dL (8.5-10.5); Carbon Dioxide 29 mmol/L (22-29); Chloride 99 mmol/L (98-107); Globulin 3.2 g/dL (1.3-4.6); Glucose 197 mg/dL (65-115); Lactic Sepsis W/Reflex 3.8 mmol/L (0.5-2.2); Osmolality Calculated 300 mOsm/kg (285-295); Potassium 3.5 mmol/L (3.5-5.1); Sodium 140 mmol/L (136-145); Total Bilirubin 0.6 mg/dL (0.15-1.2)
[2022-05-22 13:24] LABS: Reflex Lactate Order REFLEX LACTIC ORDERD
[2022-05-22 14:57] LABS: Add Urine Microscopic? YES; Bilirubin Urine 1+ (Negative); Blood Urine Neg (Negative); Glucose Urine UA Norm (Normal); Ketones Urine 1+ (Negative); Leukocyte Esterase Urine Negative (Negative); Nitrate Urine Negative (Negative); Protein Urine Trace (Negative); Urine Appearance Clear (CLEAR); Urine Color Yellow (Yellow); Urobilinogen Urine Norm (Negative); pH Urine 5 (5-7)
[2022-05-22 14:58] LABS: Add Urine Culture? Yes; Amorphous Sediment Urine 2+ /hpf; Bacteria Urine 4+ /hpf; Squamous Epithelial Cell Urine 0-4 /hpf (0-5)
[2022-05-22 15:37] LABS: Lactic Acid level (Lactate) 3.5 mmol/L (0.5-2.2)
--- NOTE | 2022-05-22 16:56 | XRR_ITS ---
PROCEDURE INFORMATION: Exam: XR Chest Exam date and time: 05/22/2022 5:05 PM Age: 86 years old Clinical indication: Cough and dyspnea; Patient HX: Diarrhea; Additional info: Dyspnea/cough TECHNIQUE: Imaging protocol: Radiologic exam of the chest. Views: 1 view. COMPARISON: [facility] [id number] 10/06/2021 5:44 PM FINDINGS: Lungs: There is some platelike atelectasis or scarring in the right mid lung. There is some focal scarring or subsegmental atelectasis at the left lung base not significantly changed. No new infiltrate is identified. Pleural spaces: Unremarkable. No pleural effusion. No pneumothorax. Heart/Mediastinum: There is enlargement of the central pulmonary arteries not significantly changed suggesting pulmonary hypertension. Heart is mildly enlarged not significantly changed. Vasculature: Atherosclerotic changes are seen in the aortic arch. Bones/joints: Unremarkable. XR/XR chest 1V portable [id number] IMPRESSION: 1. Atelectasis or scarring in the right mid lung and left lung base not significantly changed. 2. Enlarged central pulmonary artery suggesting pulmonary hypertension. 3. Mild cardiomegaly.
--- NOTE | 2022-05-22 17:13 | P.HP_ITS ---
Providers/Chief Complaint Admitting Physician: Carlos Castaneda MD Primary Care Provider: Trupti Grace MD Chief Complaint: Diarrhea History of Present Illness Rashid Bolivar is a 86 year old male with a past medical history significant for generalized epilepsy, chronic hypoxic respiratory failure on 2 L baseline, hypertension, hypothyroidism, hypokalemia, and COPD who presents to the emergency department with nausea, emesis, and diarrhea x3 days. His spouse is his primary caregiver. She is unable to take care of him in his current condition. He endorses associated generalized malaise and fatigue. Reports too many episodes to count. Patient denies any recent changes to diet. He denies any other sick contacts in the household. Reports chronic low back pain. They deny abdominal pain, fevers, melena, or hematochezia. Denies alleviating or aggravating factors. Review of Systems Narrative: A complete review of systems was obtained and is negative except as stated in HPI. Medications/Allergies Home Medications Medication Instructions Recorded Confirmed Last Taken Type aspirin 81 mg chewable tablet 81 mg PO DAILY@06/11/20 05/22/22 05/21/22 History levothyroxine 112 mcg tablet 112 mcg PO DAILY@06/11/20 05/22/22 05/21/22 History multivitamin 1 tab PO DAILY@12 02/20/21 05/22/22 05/21/22 History levetiracetam 500 mg tablet 500 mg PO DAILY 10/06/21 05/22/22 05/21/22 History furosemide 40 mg tablet (Lasix) 40 mg PO DAILY #30 tabs 10/08/21 05/22/22 05/21/22 Rx losartan 50 mg tablet 50 mg PO DAILY #30 tabs 10/08/21 05/22/22 05/21/22 Rx potassium chloride 10 mEq 10 meq PO DAILY #30 caps 10/08/21 05/22/22 05/21/22 Rx capsule,extended release amlodipine 10 mg tablet 10 mg PO DAILY 12/25/21 05/22/22 05/21/22 History hydrocortisone 20 mg tablet See Rx Instructions PO DAILY 12/25/21 05/22/22 05/21/22 History Allergies Allergy/AdvReac Type Severity Reaction Status Date / Time morphine Allergy Vomitting Verified 05/22/22 10:55 PFSH Acute PFSH: Medical History (Updated 05/22/22 @ 17:41 by Carlos Castaneda MD) Acute encephalopathy Acute exacerbation of chronic obstructive airways disease Acute respiratory failure with hypoxia Acute respiratory failure with hypoxia Adrenal insufficiency CHERI (acute kidney injury) Altered mental status Bilateral leg edema Bladder cancer Callus of foot CHF (congestive heart failure) Chronic respiratory failure with hypoxia COPD (chronic obstructive pulmonary disease) COVID-19 COVID-19 Dyspnea on exertion Elevated brain natriuretic peptide (BNP) level Elevated d-dimer Elevated lactic acid level Gallbladder polyp Gross hematuria Hammertoes of both feet Hospital discharge follow-up Hypertension Hypocalcemia Hypothyroidism Hypoxia Lichen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 Lingular pneumonia Lung nodule Nocturnal hypoxia NSTEMI (non-ST elevated myocardial infarction) NSVT (nonsustained ventricular tachycardia) Onychodystrophy Oral thrush REX (obstructive sleep apnea) Peripheral arterial disease Pneumonia Post viral syndrome Postop check Pulmonary hypertension PVD (peripheral vascular disease) Recurrent syncope Renal insufficiency Rhinovirus Sepsis Septic shock Syncope Thyroid disease Surgical History H/O brain surgery History of gastric surgery History of prostate surgery Family History Denies family history of Diabetes CAD (coronary artery disease) Clotting disorder Dementia Hyperlipidemia Psychiatric illness Chronic kidney disease (CKD) Suicide Anesthesia complication Bleeding disorder Family history of premature coronary artery disease Lung disease Cancer Hypertension Stroke Social History Smoking and tobacco status: former smoker Quit status (tobacco): has quit using tobacco Year quit tobacco: 1999 [id number] cig/pipe Second hand smoke exposure: No Smoking risk assessment/counseling performed?: Yes Alcohol intake: never Lives independently: Yes Household members: spouse Housing: House Marital status: service: No Current occupational status: retired Pets and animals: No History of recent travel: No Current gender identity: Male Vitals/I&O/Wt Last Vital Signs Temp 98.2 F 05/22/22 10:01 Pulse 86 05/22/22 16:31 Resp 18 05/22/22 16:31 BP 147/73 05/22/22 16:31 Pulse Ox 95 05/22/22 16:31 O2 Del Method 05/22/22 11:39 O2 Flow Rate 4 05/22/22 11:39 05/22/22 05/22/22 05/22/22 06:59 14:59 22:59 Intake Total 1000 / 1000 Balance 1000 / 1000 Weight last 48 hrs Weight 83.915 kg Physical Exam Narrative: General: Patient is slightly lethargic. Head: Normocephalic. Atraumatic. EOM intact. Neck: No JVD. Cardiovascular: RRR. No gallops. No murmurs. Trace pedal edema. Lungs: Breath sounds diminished in bilateral bases, no use of accessory muscles, no crackles or wheezes. On 4L NC. Skin: No jaundice. No rashes. Abdomen: Normal bowel sounds, abdomen soft and nontender. Genito Urinary: Genital exam not performed since complaints not related. Rectal: Rectal exam not performed since no symptoms indicated blood loss. Extremities: No cyanosis or clubbing. Musculoskeletal: No joint deformity. Neurological: Moves all 4 extremities. No myoclonus. Data 05/22/22 11:33 05/22/22 11:33 A&P Assessment and plan (1) Enteritis: Associated with intractable nausea, emesis, and diarrhea Suspect viral in origin Stool culture C diff Start IV fluids Zofran PRN Phenergan PRN Supportive care (2) Lactic acidosis: Secondary to enteritis IV fluids as above Supportive care (3) Debility: Debility and physical deconditioning Spouse unable to care for patient in current condition Supportive care Physical therapy consultation (4) Chronic respiratory failure with hypoxia: Baseline 2L Currently 4L Monitor for worsening hypoxia while on IV fluids (5) Congestive heart failure: 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 Compensated Hold home Lasix for now Daily assessment of volume Qualifiers: Heart failure type: other Qualified Code(s): I50.9 - Heart failure, unspecified (6) Generalized epilepsy: Continue home Keppra Monitor for seizures given he's likely missed doses (7) COPD (chronic obstructive pulmonary disease): Not in acute exacerbation Continue to monitor Qualifiers: COPD type: unspecified COPD Qualified Code(s): J44.9 - Chronic ob structive pulmonary disease, unspecified (8) Hypokalemia: Monitor potassium level Replace potassium as needed (9) Hypothyroidism: Continue home Synthroid Qualifiers: Hypothyroidism type: unspecified Qualified Code(s): E03.9 - Hypothyro idism, unspecified (10) Hypertension: Continue home amlodipine Monitor BP Qualifiers: Hypertension type: essential hypertension Qualified Code(s): I10 - Essential (primary) hypertension Plan DVT ppx: Heparin Code Status: DNR - Discussed with patient and family Attestations Medical Necessity Statement*: Patient comes in with intractable nausea, vomiting, and diarrhea, found to have enteritis and lactic acidosis causing severe debility and physical deconditioning requiring admission for close monitoring, supportive care, IV fluids, serial labs and stool studies Coding Level of Care Code Acute Saw Runner for [facility] Fwd Diagnoses Enteritis K52.9 Lactic acidosis E87.20 Debility R53.81 Chronic respiratory failure with hypoxia J96.11 Congestive heart failure I50.9 Heart failure type: other Generalized epilepsy G40.309 COPD (chronic obstructive pulmonary disease) J44.9 COPD type: unspecified COPD Hypokalemia E87.6 Hypothyroidism E03.9 Hypothyroidism type: unspecified Hypertension I10 Hypertension type: essential hypertension
[2022-05-22] MEDS: hydrocortisone 10 mg Tablet PO (20:19)
[2022-05-22] MEDS: sodium chloride 0.9% 1,000 ML 75 ML IV (20:19)
[2022-05-23] VITALS (13 sets, daily range): BP systolic 94–135; BP diastolic 57–70; PULSE 79–96; RESP 16–25; TEMP 36.7–39.1; O2SAT 90–95
--- NOTE | 2022-05-23 02:49 | PC.NURSE ---
Patient experiencing intermittent but persistent diarrhea at this time. Both buttocks red and irritated, no broken skin. Protective skin cream applied over inflamed areas and patient ambulated from bed to restroom to prevent further irritation to skin.
[2022-05-23 03:47] LABS: SARS Covid-2 Antigen negative (Negative)
[2022-05-23] MEDS: ondansetron 2 mg/ML SDV 2 mL 8 MG IVP (03:55)
[2022-05-23 05:18] LABS: Basophils % 0.2 %; Hematocrit 43.3 % (42.0-52.0); Hemoglobin 13.5 g/dL (11.7-16.6); Lymphocytes # 0.8 10^3/uL (0.8-4.8); Lymphocytes % 12.5 %; Mean Corpuscular HGB Conc 31.2 g/dL (30.0-36.0); Mean Corpuscular Hemoglobin 31.3 pg (28.0-34.0); Mean Corpuscular Volume 100.2 fl (80-94); Mean Platelet Volume 10.5 fL (7.4-10.4); Monocytes # 0.4 10^3/uL (0.2-0.9); Neutrophils % 79.8 %; Nucleated Red Blood Cells % 0 %; Platelet Count 147 10^3/cmm (130-400); Red Blood Count 4.32 10^6/uL (4.1-5.3); Red Cell Distribution Width 13.2 % (12.1-15.1); White Blood Count 6.1 10^3/uL (4.0-10.0)
[2022-05-23 05:39] LABS: Albumin Level 3.7 g/dL (3.5-5.2); Anion Gap 13.5 (5-19); Blood Urea Nitrogen 24 mg/dL (8-23); Calcium 8.4 mg/dL (8.5-10.5); Carbon Dioxide 29 mmol/L (22-29); Chloride 102 mmol/L (98-107); Glucose 184 mg/dL (65-115); Magnesium 1.9 mg/dL (1.7-2.3); Phosphorus 3.3 mg/dL (2.5-4.5); Potassium 3.5 mmol/L (3.5-5.1); Sodium 141 mmol/L (136-145)
[2022-05-23] MEDS: levothyroxine 112 mcg Tablet PO (06:34)
--- NOTE | 2022-05-23 07:53 | PC.NURSE ---
This nurse is assuming care of patient, patient resting comfortably in bed and is easily arousable, AAOx4, no c/o pain at this time, no current needs, room cleaned and clutter free with call light in reach. Will continue to monitor with frequent rounding and turns.
--- NOTE | 2022-05-23 08:51 | PM.PN ---
Subjective Subjective: Patient reports continued diarrhea. Multiple episodes. Reports improvement in nausea and emesis. Denies fevers, chills, chest pain or abdominal pains. Medications: Reviewed: Yes Vitals/I&O/Wt Last Vital Signs Temp 99.5 F 05/23/22 07:37 Pulse 91 05/23/22 07:37 Resp 17 05/23/22 07:37 BP 135/63 05/23/22 07:37 Pulse Ox 92 05/23/22 07:37 O2 Del Method 05/23/22 03:59 O2 Flow Rate 3 05/23/22 00:00 05/22/22 05/23/22 05/23/22 22:59 06:59 14:59 Intake Total 1000 / 1999 960 / 2960 400 / 400 Balance 1000 / 1999 960 / 2960 400 / 400 Weight last 48 hrs Weight 118.206 kg Weight 83.915 kg Physical Exam Narrative: General: Patient is awake and alert. Head: Normocephalic. Atraumatic. EOM intact. Neck: No JVD. Cardiovascular: RRR. No gallops. No murmurs. Trace pedal edema. Lungs: Breath sounds diminished in bilateral bases, no use of accessory muscles, no crackles or wheezes. Skin: No jaundice. No rashes. Abdomen: Normal bowel sounds, abdomen soft and nontender. Genito Urinary: Genital exam not performed since complaints not related. Rectal: Rectal exam not performed since no symptoms indicated blood loss. Extremities: No cyanosis or clubbing. Musculoskeletal: No joint deformity. Neurological: Moves all 4 extremities. No myoclonus. Data 05/23/22 04:54 05/23/22 04:54 A&P Assessment and plan (1) Enteritis: Associated with intractable nausea, emesis, and diarrhea Stool culture pending C diff pending Discontinue fluids given history of CHF Attempt advance diet Zofran PRN Phenergan PRN Supportive care (2) Lactic acidosis: Secondary to enteritis Status post IV fluid resuscitation (3) Debility: Debility and physical deconditioning Spouse unable to care for patient in current condition Supportive care Physical therapy consultation is pending (4) Chronic respiratory failure with hypoxia: Continue supplemental oxygen support (5) Congestive heart failure: 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 Compensated Hold home Lasix Daily assessment of volume Qualifiers: Heart failure type: other Qualified Code(s): I50.9 - Heart failure, unspecified (6) Generalized epilepsy: Continue home Keppra (7) COPD (chronic obstructive pulmonary disease): Not in acute exacerbation Continue to monitor Qualifiers: COPD type: unspecified COPD Qualified Code(s): J44.9 - Chronic obstructive pulmonary disease, unspecified (8) Hypokalemia: Monitor potassium level Replace potassium as needed (9) Hypothyroidism: Continue home Synthroid Qualifiers: Hypothyroidism type: unspecified Qualified Code(s): E03.9 - Hypothyroidism, unspecified (10) Hypertension: Continue home amlodipine Monitor BP Qualifiers: Hypertension type: essential hypertension Qualified Code(s): I10 - Essential (primary) hypertension Plan DVT ppx: Heparin Code Status: DNR Attestations Medical Necessity Statement*: Patient remains weak and debilitated requiring ongoing hospitalization for supportive care, IV antiemetics, stool studies, and physical therapy with expected hospitalization to cross two midnights. Coding Level of Care Code Acute [facility] [employer] for [facility] Fwd Diagnoses Enteritis K52.9 Lactic acidosis E87.20 Debility R53.81 Chronic respiratory failure with hypoxia J96.11 Congestive heart failure I50.9 Heart failure type: other Generalized epilepsy G40.309 COPD (chronic obstructive pulmonary disease) J44.9 COPD type: unspecified COPD Hypokalemia E87.6 Hypothyroidism E03.9 Hypothyroidism type: unspecified Hypertension I10 Hypertension type: essential hypertension
[2022-05-23] MEDS: amlodipine 10 mg Tablet PO (09:55)
[2022-05-23] MEDS: levETIRAcetam 500 mg Tablet PO (09:55)
[2022-05-23] MEDS: losartan 50 mg Tablet PO (09:55)
[2022-05-23] MEDS: aspirin 81 mg Chew Tablet PO (11:40)
--- NOTE | 2022-05-23 14:21 | CT_ITS ---
WS: [id number] CT HEAD NONCONTRAST HISTORY: STROKE SYMPTOMS TECHNIQUE: Contiguous axial imaging performed through the brain in 2.5 mm imaging. Bone and soft tiss ue windows. Sagittal and coronal reformats reviewed. All CT scans at [facility] use at least one of these dose optimization techniques: automated exposure control; mA and/or kV adjustment per pa tient size (includes targeted exams where dose is matched to clinical indication); or iterative recon struction. DLP: 1151.17 mGy-cm. COMPARISON: 02/22/2021 No acute intracranial hemorrhage, midline shift or mass effect. Moderate atrophy and small vessel ischemic disease. Prior lacunar infarct LEFT caudate head. Prior la cunar infarct versus perivascular space inferior LEFT temporal lobe. Ventricles: Normal size with no hydrocephalus. Paranasal sinuses: As visualized are clear. Mastoid air cells: Well pneumatized. Calvarium and scalp: Skull is intact with no soft tissue edema or swelling. CT/CT head wo con* [id number] IMPRESSION: 1. No acute intracranial hemorrhage or edema. 2. Atrophy and small vessel ischemic disease with lacunar infarcts. Notified Carlos Castaneda MD at 05/23/2022 2:29 PM.
[2022-05-23 14:39] LABS: ABG PCO2 55.9 mmHg (35-45); ABG PH Result 7.32 (7.35-7.45); Alveolar-Arterial Oxygen Gradi 12.5 mmHg (5-10); Arterial Blood Gas Hematocrit 40.2 % (42-52); Base Excess ABG 1.3 mmol/L (-2.0-2.0); Blood Gas Allen Test Pos; Blood Gas Operator Identificat MONRO; Blood Gas Sample Site Radial, right; Blood Gas Sample Type Arterial; Carboxyhemoglobin 1.4 %THgb (0.4-20.1); HCO3 ABG 28.6 mmol/L (22-26); HGB O2 Sat 91.6 % (95-100); Ionized Calcium Level - ABG 1.1 mmol/L (1.1-1.4); Oxygen Device NC; Oxygen Saturation ABG 93.9; Potassium Level - ABG 3.5 mmol/L (3.5-5.0); Total Hemoglobin 13.1 g/dL (14-18)
--- NOTE | 2022-05-23 14:42 | PM.SAN ---
Stroke Alert Activation ED Arrival Date: 05/23/22 ED Arrival Time: 14:00 Last Known Normal/at Baseline: < 1 hour ago Other Last Known Well Infomation: Stroke alert was activated at 1411 by the patient care nurse, Genie, on second floor south. She saw the patient 30 minutes ago and he was walking, talking and communicating normally. When she went back to check on him he was obtunded, his left side was weaker than the right. Stroke team was called. I was on the phone with the emergency department and as soon as I hung up I came directly to CAT scan where the patient had just completed his images. His CT scan of the head was unremarkable including be views of his [place] of [place]. I examined the patient after helping transfer him to the bed from the CT table. He was obtunded with diffuse asterixis. He knew his birthday month and could tell me that he was in the hospital for peeing blood. He could follow simple commands. He was stuporous and fell back asleep. Initially we were prepared to give tPA because of his obtundation and left-sided weakness but I could not reproduce findings of left-sided weakness. I ordered a stat blood gas. By then his hospitalist, Dr. Castaneda, was at the bedside and we discussed options. The patient is going back to his room and Dr. Castaneda will let me know if I am needed again. He should have frequent neurochecks for the next 6 hours. Stroke Alert Activated by: Genie patient care nurse Stroke Alert Activation Time: 14:11 Stroke MD @ Bedside Time: 14:20 NIH Stroke Scale Time: 14:25 NIH stroke score NIHSS: Level Of Consciousness - 1a: 1 Level Of Consciousness Questions - 1b: One Correct Level Of Consciousness Commands - 1c: Both Correct Best Gaze - 2: Normal Visual Schmid - 3: No Visual Loss Facial Palsy - 4: Normal Motor Arm Right - 5: Drift Motor Arm Left - 5: Drift Motor Leg Right - 6: No Drift Motor Leg Left - 6: Drift Limb Ataxia - 7: Absent Sensory - 8: Normal Best Language - 9: No Aphasia Dysarthia - 10: Mild/Moderate Dysarthia Extinction And Inattention - 11: 0 Score: Total Score: 6 Stroke Alert Data/Treatment Time to CT of Head: 14:11 CT Results Date: 05/23/22 CT Results Time: 14:21 CT Impression: Normal Stroke Risk Factors: hypertension and obesity tPA Contraindication: tPA Contraindication: Treatment not indcated Other Information: Although the patient had an NIH stroke scale score of 6, his findings were diffuse and nonfocal Critical Care Time Critical Care Time: less than 30 mins Additional information about critical care time: 30 minutes A&P Assessment and plan (1) Metabolic encephalopathy: I think this is probably metabolic encephalopathy at this point. The patient care nurse observed left-sided weakness that I could not reproduce except he did not lift the left leg quite as well as the right. He was stuporous and had to be constantly pestered to keep his arms elevated. I looked at his labs from this morning. He was a little dry but really his labs were pretty unremarkable. His CO2 was elevated when he came in but not this morning. His arterial blood gas shows CO2 retention with a CO2 of 55.9 and his pH is down to 7.32 so this probably accounts for his asterixis and his obtundation. (2) TIA (transient ischemic attack): Patient had frequent neurochecks because he had focal weakness observed by the nurse. Plan Care turned over to [place]. Coding Level of Care Code Acute Window/Distribution Clerk for [facility] Diagnoses Metabolic encephalopathy G93.41 TIA (transient ischemic attack) G45.9
--- NOTE | 2022-05-23 15:01 | PC.NURSE ---
This nurse was called to patients room while PT was trying to work with patient but patient was not able to cooperate. This nurse performed a neuro check on patient and he could not follow commands, speech was slurred and inappropriate. Called a rapid response stroke alert and asked tech to get blood glucose and vitals on patient. Response team showed up at that point.
[2022-05-23] MEDS: hydrocortisone 10 mg Tablet PO (17:20)
[2022-05-23] MEDS: acetaminophen 325 mg Tablet 650 MG PO (21:30)
[2022-05-23] MEDS: piperacillin-tazobactam 3.375 GM in sodium chloride 0.9% (plus) 50 ML IV (22:17)
[2022-05-24] VITALS (12 sets, daily range): BP systolic 113–133; BP diastolic 57–72; PULSE 79–90; RESP 15–25; TEMP 36.2–39.1; O2SAT 87–97
[2022-05-24 04:12] LABS: Lactate (Lactic Acid level) 2.5 mmol/L (0.5-2.2)
[2022-05-24] MEDS: piperacillin-tazobactam 3.375 GM in sodium chloride 0.9% (plus) 50 ML IV ×3 (05:39→20:17)
[2022-05-24] MEDS: levothyroxine 112 mcg Tablet PO (06:03)
[2022-05-24 06:27] LABS: Glucose Point of Care 145 mg/dL (70-110)
[2022-05-24] MEDS: levETIRAcetam 500 mg Tablet PO (08:33)
[2022-05-24] MEDS: losartan 50 mg Tablet PO (08:33)
[2022-05-24] MEDS: amlodipine 10 mg Tablet PO (08:34)
--- NOTE | 2022-05-24 09:46 | PM.PN ---
Subjective Subjective: Patient fevered overnight. Start on antibiotics. Cultures obtained. He reports diffuse weakness. Ongoing diarrhea. Denies chest pain, headache or focal weakness. Medications: Reviewed: Yes Vitals/I&O/Wt Last Vital Signs Temp 97.2 F L 05/24/22 08:00 Pulse 82 05/24/22 09:01 Resp 18 05/24/22 04:00 BP 132/72 05/24/22 08:33 Pulse Ox 91 05/24/22 09:01 O2 Del Method 05/24/22 09:01 O2 Flow Rate 4 05/24/22 09:01 FiO2 40 05/24/22 00:00 05/23/22 05/24/22 05/24/22 22:59 06:59 14:59 Intake Total 50 / 1553.75 50 / 50 Output Total 400 / 400 Balance -350 / 1153.75 50 / 50 Weight last 48 hrs Weight 118.206 kg Weight 83.915 kg Physical Exam Narrative: General: Patient is awake. Frail appearing. Head: Normocephalic. Atraumatic. EOM intact. Neck: No JVD. Cardiovascular: RRR. No gallops. No murmurs. Trace pedal edema. Lungs: Breath sounds diminished in bilateral bases, no use of accessory muscles, no crackles or wheezes. Skin: No jaundice. No rashes. Abdomen: Normal bowel sounds, abdomen soft and nontender. Genito Urinary: Genital exam not performed since complaints not related. Rectal: Rectal exam not performed since no symptoms indicated blood loss. Extremities: No cyanosis or clubbing. Musculoskeletal: No joint deformity. Neurological: Moves all 4 extremities. No myoclonus. Data 05/23/22 04:54 05/23/22 04:54 Micro: Microbiology 05/23/22 22:05 Blood Culture - Preliminary Blood SPECIMEN COLLECTED 05/23/22 21:56 Blood Culture - Preliminary Blood SPECIMEN COLLECTED 05/22/22 21:30 Enteric Pathogens (PCR) - Final Stool Routine Collection 05/22/22 21:30 C.difficile Toxin B Gene (PCR) - Final Stool Routine Collection 05/22/22 14:38 Urine Culture - Preliminary Urine,Clean Catch A&P Assessment and plan (1) Enteritis: Associated with intractable nausea, emesis, and diarrhea Stool culture pending C diff pending Zofran PRN Phenergan PRN Supportive care (2) Metabolic encephalopathy: Code stroke on 05/[address] head was negative Continue to monitor (3) Fever: Blood cultures obtained Continue Zosyn (4) Lactic acidosis: Secondary to enteritis Status post IV fluid resuscitation (5) Debility: Debility and physical deconditioning Spouse unable to care for patient in current condition Supportive care Physical therapy consultation (6) Chronic respiratory failure with hypoxia: Continue supplemental oxygen support (7) Congestive heart failure: 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 Compensated Hold home Lasix Daily assessment of volume Qualifiers: Heart failure type: other Qualified Code(s): I50.9 - Heart failure, unspecified (8) Generalized epilepsy: Continue home Keppra (9) COPD (chronic obstructive pulmonary disease): Not in acute exacerbation Continue to monitor Qualifiers: COPD type: unspecified COPD Qualified Code(s): J44.9 - Chronic obstructive pulmonary disease, unspecified (10) Hypokalemia: Replace potassium as needed (11) Hypothyroidism: Continue home Synthroid (12) Hypertension: Continue home amlodipine Monitor BP Plan DVT ppx: Heparin Code Status: DNR Attestations Medical Necessity Statement*: Patient remains weak and debilitated requiring ongoing hospitalization for supportive care, IV antibiotics, stool studies, and physical therapy with expected hospitalization to cross two midnights. ? Coding Level of Care Code Acute Access Manager for Chg Fwd Diagnoses Enteritis K52.9 Metabolic encephalopathy G93.41 Fever R50.9 Lactic acidosis E87.20 Debility R53.81 Chronic respiratory failure with hypoxia J96.11 Congestive heart failure I50.9 Heart failure type: other Generalized epilepsy G40.309 COPD (chronic obstructive pulmonary disease) J44.9 COPD type: unspecified COPD Hypokalemia E87.6 Hypothyroidism E03.9 Hypertension I10
--- NOTE | 2022-05-24 10:21 | PC.CHAP ---
Pastoral Care Encounter/Spiritual Assessment Type of Contact [] Declined handbag operator visit [] Patient/Family/Request visit [] Outpatient visit [] Follow-up visit [] Physician referral [] Code/Alert [x] Routine visit [] Staff referral [] Actively dying [] Patient sleeping [] Family support [] [] Out of room [] Palliative care [] [x] Receiving care in room [] Pre-surgical visit [] Trauma [x] Long length of stay [] ICU visit [] Other: Relational/Emotional Strength [] Patient feels connected with others/family/visitors/staff [x] Distress [] Loneliness/isolation [] Abandonment Spirituality of Patient [x] Person of L[place] [] Attends Yazidi of their [place] [x] Believes in Prayer [] Reads Bible or Moravian materials [] There are Spiritual issues to be addressed Party Plan Sales Host/Hostess Interventions [x] Prayer [x] Active listening [x] Non-anxious presence [x] Spiritual/emotional support [] Crisis/trauma care [x] Spiritual counseling [] Bereavement support [] Provided bereavement packet [] Provided Bible/devotional materials [] Provided toy/stuffed animal, coloring book to patient or family member [] Provided Communion [] Anointing/[place] [] Salvation [x] Completed spiritual assessment [] Other: Impact on Illness or Injury [] Angry [x] Fearful [] Anxious [] Often cries [] Exhaustion [x] Unable to work [] Unable to attend samaritan [] Unable to walk/stand [] Unable to read [] Unable to drive [] Unable to eat/drink [] Unable to sleep [] Unable to be with family [] Patient intubated [] Other: Summary [id number] under doctors care +1 is there in the decisions for health not sure when he can go home at this point Time spent with patient 19 mins
[2022-05-24] MEDS: aspirin 81 mg Chew Tablet PO (12:03)
[2022-05-24] MEDS: hydrocortisone 10 mg Tablet PO (17:22)
[2022-05-24] MEDS: nystatin powder 15 gm Btl 1 APPLIC TOPICAL (17:42)
[2022-05-24] MEDS: acetaminophen 325 mg Tablet 650 MG PO (20:15)
[2022-05-25] VITALS: BP 130/72; PULSE 78; RESP 18; TEMP 37.1; O2SAT 93
[2022-05-25] MEDS: piperacillin-tazobactam 3.375 GM in sodium chloride 0.9% (plus) 50 ML IV ×3 (04:00→20:25)
[2022-05-25 04:03] LABS: Basophils % 0.2 %; Hematocrit 39.3 % (42.0-52.0); Hemoglobin 12.4 g/dL (11.7-16.6); Lymphocytes # 1.7 10^3/uL (0.8-4.8); Lymphocytes % 28.7 %; Mean Corpuscular HGB Conc 31.6 g/dL (30.0-36.0); Mean Corpuscular Hemoglobin 31.6 pg (28.0-34.0); Mean Platelet Volume 10.3 fL (7.4-10.4); Monocytes # 0.8 10^3/uL (0.2-0.9); Monocytes % 12.9 %; Neutrophils # 3.51 10^3/uL (1.8-7.7); Neutrophils % 57.9 %; Nucleated Red Blood Cells % 0 %; Platelet Count 141 10^3/cmm (130-400); Red Blood Count 3.93 10^6/uL (4.1-5.3); Red Cell Distribution Width 13.1 % (12.1-15.1); White Blood Count 6.1 10^3/uL (4.0-10.0)
[2022-05-25 04:23] VITALS: BP 145/74; PULSE 76; RESP 15; TEMP 36.5; O2SAT 95
[2022-05-25 04:31] LABS: Albumin Level 2.9 g/dL (3.5-5.2); Anion Gap 15.7 (5-19); Blood Urea Nitrogen 39 mg/dL (8-23); Calcium 7.7 mg/dL (8.5-10.5); Carbon Dioxide 23 mmol/L (22-29); Chloride 102 mmol/L (98-107); Glucose 155 mg/dL (65-115); Phosphorus 3.2 mg/dL (2.5-4.5); Potassium 3.7 mmol/L (3.5-5.1); Sodium 137 mmol/L (136-145)
[2022-05-25 04:43] LABS: Creatinine Clr Calc Pharmacy 30.6008
[2022-05-25] MEDS: levothyroxine 112 mcg Tablet PO (06:02)
[2022-05-25 07:44] VITALS: BP 102/58; PULSE 72; RESP 16; TEMP 36.6; O2SAT 92
[2022-05-25] MEDS: sodium chloride 0.9% 1,000 ML 100 ML IV ×2 (07:51→17:45)
--- NOTE | 2022-05-25 08:30 | P.PN_ITS ---
Subjective Subjective: Patient reports ongoing diarrhea and generalized fatigue. Denies chest pain, abdominal pain, or focal neurological deficit. Medications: Reviewed: Yes Vitals/I&O/Wt Last Vital Signs Temp 97.8 F 05/25/22 07:44 Pulse 72 05/25/22 07:44 Resp 16 05/25/22 07:44 BP 102/58 05/25/22 07:44 Pulse Ox 92 05/25/22 07:44 O2 Del Method 05/25/22 07:44 O2 Flow Rate 6 05/24/22 14:50 FiO2 40 05/24/22 23:42 05/24/22 05/25/22 05/25/22 22:59 06:59 14:59 Intake Total 170 / 220 50 / 270 50 / 50 Balance 170 / 220 50 / 270 50 / 50 Physical Exam Narrative: General: Patient is awake. Frail appearing. Ill appearing. Head: Normocephalic. Atraumatic. EOM intact. Neck: No JVD. Cardiovascular: RRR. No gallops. No murmurs. Trace pedal edema. Lungs: Breath sounds diminished in bilateral bases, no use of accessory muscles, no crackles or wheezes. Skin: No jaundice. No rashes. Abdomen: Normal bowel sounds, abdomen soft and nontender. Genito Urinary: Genital exam not performed since complaints not related. Rectal: Rectal exam not performed since no symptoms indicated blood loss. Extremities: No cyanosis or clubbing. Musculoskeletal: No joint deformity. Neurological: Moves all 4 extremities. No myoclonus. Data 05/25/22 03:38 05/25/22 03:38 Micro: Microbiology 05/23/22 22:05 Blood Culture - Preliminary Blood NEGATIVE TO DATE 05/23/22 21:56 Blood Culture - Preliminary Blood NEGATIVE TO DATE 05/22/22 14:38 Urine Culture - Final Urine,Clean Catch A&P Assessment and plan (1) Enteritis: Associated with intractable nausea, emesis, and diarrhea Stool culture negative C diff negative Zofran PRN Phenergan PRN Start imodium Supportive care (2) Metabolic encephalopathy: Code stroke on 05/23 Treat underlying infection Continue to monitor (3) Fever: Blood cultures are NGTD Continue Zosyn Afebrile since being on abx (4) CHERI (acute kidney injury): Obtain urine electrolytes Start IV fluids Renally dose medications Strict I&Os (5) Lactic acidosis: Secondary to enteritis Status post IV fluid resuscitation (6) Debility: Debility and physical deconditioning Supportive care Physical therapy following, anticipate SNF when medically ready (7) Chronic respiratory failure with hypoxia: Continue supplemental oxygen support (8) Congestive heart failure: 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 Compensated Hold home Lasix Daily assessment of volume Qualifiers: Heart failure type: other Qualified Code(s): I50.9 - Heart failure, unspecified (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 (10) COPD (chronic obstructive pulmonary disease): Not in acute exacerbation Continue to monitor Qualifiers: COPD type: unspecified COPD Qualified Code(s): J44.9 - Chronic obstructive pulmonary disease, unspecified (11) Hypokalemia: Replace potassium as needed (12) Hypothyroidism: Continue home Synthroid (13) Hypertension: Continue home amlodipine Monitor BP Plan DVT ppx: Heparin Code Status: DNR Attestations 2 Medical Necessity Statement*: Patient remains weak and debilitated requiring ongoing hospitalization for supportive care, IV antibiotics, urine studies, and physical therapy with expected hospitalization to cross two midnights. Coding Level of Care Code Acute Manufacturing Director for Chg Fwd Diagnoses Enteritis K52.9 Metabolic encephalopathy G93.41 Fever R50.9 CHERI (acute kidney injury) N17.9 Lactic acidosis E87.20 Debility R53.81 Chronic respiratory failure with hypoxia J96.11 Congestive heart failure I50.9 Heart failure type: other Generalized epilepsy G40.309 COPD (chronic obstructive pulmonary disease) J44.9 COPD type: unspecified COPD Hypokalemia E87.6 Hypothyroidism E03.9 Hypertension I10
[2022-05-25] MEDS: nystatin powder 15 gm Btl 1 APPLIC TOPICAL ×2 (09:52→17:47)
[2022-05-25] MEDS: amlodipine 10 mg Tablet PO (09:52)
[2022-05-25] MEDS: levETIRAcetam 500 mg Tablet PO (09:53)
[2022-05-25 11:35] VITALS: BP 148/64; PULSE 76; RESP 16; TEMP 36.7; O2SAT 97
[2022-05-25] MEDS: aspirin 81 mg Chew Tablet PO (12:02)
[2022-05-25 15:47] VITALS: BP 124/65; PULSE 63; RESP 16; TEMP 36.4; O2SAT 95
[2022-05-25 16:20] LABS: Add Urine Microscopic? YES; Bacteria Urine 1+ /hpf; Bilirubin Urine Neg (Negative); Blood Urine 2+ (Negative); Fine Granular Casts Urine 0-4 /lpf; Glucose Urine UA Norm (Normal); Ketones Urine 1+ (Negative); Leukocyte Esterase Urine Negative (Negative); Nitrate Urine Negative (Negative); Protein Urine Trace (Negative); Specific Gravity, Urine 1.015 (1.005-1.030); Urine Appearance Clear (CLEAR); Urine Color Yellow (Yellow); Urobilinogen Urine Norm (Negative); WBC Urine 0-4 /hpf (0-5); pH Urine 5 (5-7)
[2022-05-25 16:41] LABS: Urine Creatinine 129 mg/dL (39-259); Urine Random Sodium 24 mmol/L
[2022-05-25 16:42] LABS: Urea Nitrogen,Urine Random 310 mg/dL
[2022-05-25] MEDS: hydrocortisone 10 mg Tablet PO (17:46)
[2022-05-25 19:36] VITALS: BP 106/56; PULSE 74; RESP 18; TEMP 37; O2SAT 97
[2022-05-26] VITALS: BP 106/60; PULSE 74; RESP 18; TEMP 36.6; O2SAT 91
[2022-05-26] MEDS: sodium chloride 0.9% 1,000 ML 100 ML IV (03:21)
[2022-05-26 04:00] VITALS: BP 127/71; PULSE 77; RESP 17; TEMP 36.6; O2SAT 91
[2022-05-26 05:01] LABS: Basophils % 0.2 %; Hematocrit 37.8 % (42.0-52.0); Hemoglobin 12.4 g/dL (11.7-16.6); Lymphocytes # 1.5 10^3/uL (0.8-4.8); Lymphocytes % 28.3 %; Mean Corpuscular HGB Conc 32.8 g/dL (30.0-36.0); Mean Corpuscular Hemoglobin 31.8 pg (28.0-34.0); Mean Corpuscular Volume 96.9 fl (80-94); Mean Platelet Volume 10.9 fL (7.4-10.4); Monocytes # 0.6 10^3/uL (0.2-0.9); Monocytes % 11.8 %; Neutrophils # 3.17 10^3/uL (1.8-7.7); Neutrophils % 59.3 %; Nucleated Red Blood Cells % 0 %; Platelet Count 122 10^3/cmm (130-400); Red Cell Distribution Width 12.8 % (12.1-15.1); White Blood Count 5.3 10^3/uL (4.0-10.0)
[2022-05-26 05:21] LABS: Anion Gap 12.8 (5-19); Blood Urea Nitrogen 22 mg/dL (8-23); Calcium 7.6 mg/dL (8.5-10.5); Carbon Dioxide 25 mmol/L (22-29); Chloride 106 mmol/L (98-107); Glucose 143 mg/dL (65-115); Magnesium 2.1 mg/dL (1.7-2.3); Potassium 3.8 mmol/L (3.5-5.1); Sodium 140 mmol/L (136-145)
[2022-05-26] MEDS: piperacillin-tazobactam 3.375 GM in sodium chloride 0.9% (plus) 50 ML IV ×3 (05:21→20:52)
[2022-05-26] MEDS: levothyroxine 112 mcg Tablet PO (06:05)
[2022-05-26 08:00] VITALS: BP 116/63; PULSE 73; RESP 16; TEMP 36.6; O2SAT 94
[2022-05-26] MEDS: amlodipine 10 mg Tablet PO (08:32)
[2022-05-26] MEDS: levETIRAcetam 500 mg Tablet PO (08:32)
[2022-05-26] MEDS: nystatin powder 15 gm Btl 1 APPLIC TOPICAL ×2 (08:32→17:40)
--- NOTE | 2022-05-26 08:55 | PM.PN ---
Subjective Subjective: Patient reports continued diarrhea but thinks is getting better. Continues to endorse generalized malaise and fatigue. Denies fevers, chills, chest pain or shortness of breath. Medications: Reviewed: Yes Vitals/I&O/Wt Last Vital Signs Temp 97.9 F 05/26/22 08:00 Pulse 73 05/26/22 08:00 Resp 16 05/26/22 08:00 BP 116/63 05/26/22 08:00 Pulse Ox 94 05/26/22 08:00 O2 Del Method 05/26/22 08:00 O2 Flow Rate 3 05/26/22 08:00 FiO2 40 05/24/22 23:42 05/25/22 05/26/22 05/26/22 22:59 06:59 14:59 Intake Total 1640 / 2050 1010 / 3060 481.667 / 481.667 Output Total 500 / 500 275 / 775 Balance 1140 / 1550 735 / 2285 481.667 / 481.667 Physical Exam Narrative: General: Patient is awake. Frail appearing. Head: Normocephalic. Atraumatic. EOM intact. Neck: No JVD. Cardiovascular: RRR. No gallops. No murmurs. Trace pedal edema. Lungs: Breath sounds diminished in bilateral bases, no use of accessory muscles, no crackles or wheezes. On nasal cannula. Skin: No jaundice. No rashes. Abdomen: Normal bowel sounds, abdomen soft and nontender. Genito Urinary: Genital exam not performed since complaints not related. Rectal: Rectal exam not performed since no symptoms indicated blood loss. Extremities: No cyanosis or clubbing. Musculoskeletal: No joint deformity. Neurological: Moves all 4 extremities. No myoclonus. Data 05/26/22 04:26 05/26/22 04:26 A&P Assessment and plan (1) Enteritis: Associated with intractable nausea, emesis, and diarrhea, improving Stool culture negative C diff negative Zofran PRN Phenergan PRN Continue imodium as needed Supportive care (2) Metabolic encephalopathy: Code stroke on 05/23 Mentation is improving Treat underlying infection Continue to monitor (3) Fever: Blood cultures are NGTD Continue Zosyn Afebrile since being on abx (4) CHERI (acute kidney injury): Renal function improved Discontinue IV fluids Encourage oral intake Renally dose medications Strict I&Os Continue holding losartan for now (5) Lactic acidosis: Secondary to enteritis Status post IV fluid resuscitation (6) Debility: Debility and physical deconditioning Supportive care Physical therapy following, anticipate SNF when medically ready (7) Chronic respiratory failure with hypoxia: Continue supplemental oxygen support (8) Congestive heart failure: 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 Compensated Hold home Lasix, reassess tomorrow Daily assessment of volume Qualifiers: Heart failure type: other Qualified Code(s): I50.9 - Heart failure, unspecified (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 Coding Level of Care Code Acute Financial Services Representative for g Fwd Diagnoses Enteritis K52.9 Metabolic encephalopathy G93.41 Fever R50.9 CHERI (acute kidney injury) N17.9 Lactic acidosis E87.20 Debility R53.81 Chronic respiratory failure with hypoxia J96.11 Congestive heart failure I50.9 Heart failure type: other Generalized epilepsy G40.309 COPD (chronic obstructive pulmonary disease) J44.9 COPD type: unspecified COPD Hypokalemia E87.6 Hypothyroidism E03.9 Hypertension I10
--- NOTE | 2022-05-26 09:36 | PC.SOCIAL ---
IMM update IMM updated with patient. Verbalized an understanding. Copy Pg 2 provided. Initialled, dated, timed, and placed in chart.
[2022-05-26 11:37] VITALS: BP 115/62; PULSE 76; RESP 16; TEMP 36.7; O2SAT 91
[2022-05-26] MEDS: ondansetron 2 mg/ML SDV 2 mL 8 MG IVP (12:20)
[2022-05-26] MEDS: aspirin 81 mg Chew Tablet PO (12:23)
[2022-05-26 15:44] VITALS: BP 103/53; PULSE 76; RESP 16; TEMP 36.5; O2SAT 96
[2022-05-26] MEDS: hydrocortisone 10 mg Tablet PO (17:41)
[2022-05-26 19:27] VITALS: BP 146/66; PULSE 76; RESP 20; TEMP 36.4; O2SAT 95
[2022-05-27] VITALS (8 sets, daily range): BP systolic 104–133; BP diastolic 60–78; PULSE 69–147; RESP 12–18; TEMP 36.4–36.9; O2SAT 90–97
[2022-05-27] MEDS: piperacillin-tazobactam 3.375 GM in sodium chloride 0.9% (plus) 50 ML IV ×2 (04:25→14:16)
[2022-05-27] MEDS: levothyroxine 112 mcg Tablet PO (06:03)
[2022-05-27 06:13] LABS: Basophils % 0.5 %; Hematocrit 37.1 % (42.0-52.0); Hemoglobin 12.2 g/dL (11.7-16.6); Lymphocytes # 1.6 10^3/uL (0.8-4.8); Lymphocytes % 38.3 %; Mean Corpuscular HGB Conc 32.9 g/dL (30.0-36.0); Mean Corpuscular Hemoglobin 31.4 pg (28.0-34.0); Mean Corpuscular Volume 95.6 fl (80-94); Mean Platelet Volume 10.1 fL (7.4-10.4); Monocytes # 0.4 10^3/uL (0.2-0.9); Neutrophils # 2.15 10^3/uL (1.8-7.7); Nucleated Red Blood Cells % 0 %; Platelet Count 131 10^3/cmm (130-400); Red Blood Count 3.88 10^6/uL (4.1-5.3); Red Cell Distribution Width 12.6 % (12.1-15.1); White Blood Count 4.1 10^3/uL (4.0-10.0)
[2022-05-27 06:34] LABS: Albumin Level 2.9 g/dL (3.5-5.2); Anion Gap 9.4 (5-19); Blood Urea Nitrogen 15 mg/dL (8-23); Calcium 8.1 mg/dL (8.5-10.5); Carbon Dioxide 28 mmol/L (22-29); Chloride 98 mmol/L (98-107); Glucose 142 mg/dL (65-115); Phosphorus 1.4 mg/dL (2.5-4.5); Potassium 3.4 mmol/L (3.5-5.1); Sodium 132 mmol/L (136-145)
[2022-05-27] MEDS: nystatin powder 15 gm Btl 1 APPLIC TOPICAL ×2 (09:39→17:29)
[2022-05-27] MEDS: levETIRAcetam 500 mg Tablet PO (09:40)
[2022-05-27] MEDS: amlodipine 10 mg Tablet PO (09:40)
--- NOTE | 2022-05-27 11:43 | P.PN_ITS ---
Subjective Subjective: Patient reports the diarrhea has resolved. Reports generalized malaise and fatigue. Denies fevers, chills, nausea or emesis. Medications: Reviewed: Yes Vitals/I&O/Wt Last Vital Signs Temp 98.1 F 05/27/22 11:41 Pulse 69 05/27/22 11:41 Resp 12 05/27/22 11:41 BP 120/78 05/27/22 11:41 Pulse Ox 94 05/27/22 11:41 O2 Del Method 05/27/22 11:41 O2 Flow Rate 4 05/27/22 09:36 FiO2 40 05/24/22 23:42 05/26/22 05/27/22 05/27/22 22:59 06:59 14:59 Intake Total 530 / 1781.667 50 / 1831.667 290 / 290 Balance 530 / 1781.667 50 / 1831.667 290 / 290 Physical Exam Narrative: General: Patient is awake. Frail appearing. Head: Normocephalic. Atraumatic. EOMI. Neck: No JVD. Cardiovascular: RRR. No gallops. No murmurs. Trace pedal edema. Lungs: Breath sounds diminished in bilateral bases, no use of accessory muscles, no crackles or wheezes. On nasal cannula. Skin: No jaundice. No rashes. Abdomen: Normal bowel sounds, abdomen soft and nontender. No guarding. Genito Urinary: Genital exam not performed since complaints not related. Rectal: Rectal exam not performed since no symptoms indicated blood loss. Extremities: No cyanosis or clubbing. Musculoskeletal: No joint deformity. Neurological: Moves all 4 extremities. No myoclonus. Data 05/27/22 05:47 05/27/22 05:47 A&P Assessment and plan (1) Enteritis: Associated with intractable nausea, emesis, and diarrhea, improving Stool culture negative C diff negative Zofran PRN Phenergan PRN Continue imodium as needed Supportive care (2) Metabolic encephalopathy: Code stroke on 05/23 Mentation is improving, approaching baseline Treat underlying infection Continue to monitor (3) Fever: Blood cultures are NGTD Continue Zosyn Afebrile since being on abx (4) CHERI (acute kidney injury): Renal function has returned to baseline, resolved Continue holding losartan for now (5) Lactic acidosis: Secondary to enteritis Status post IV fluid resuscitation (6) Debility: Debility and physical deconditioning Supportive care Physical therapy following, anticipate SNF when medically ready (7) Chronic respiratory failure with hypoxia: Continue supplemental oxygen support (8) Congestive heart failure: 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 Compensated Restart home Lasix Daily assessment of volume Qualifiers: Heart failure type: other Qualified Code(s): I50.9 - Heart failure, unspecified (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 (10) COPD (chronic obstructive pulmonary disease): Not in acute exacerbation Continue to monitor Qualifiers: COPD type: unspecified COPD Qualified Code(s): J44.9 - Chronic obstructive pulmonary disease, unspecified (11) Hypokalemia: Replace potassium (12) Hypophosphatemia: Replace phosphorus (13) Hypothyroidism: Continue home Synthroid (14) Hypertension: Continue home amlodipine Monitor BP Holding losartan, reassess in AM (15) Steroid dependence: Continue home hydrocortisone Plan DVT ppx: Heparin Code Status: DNR Attestations Medical Necessity Statement*: Patient requires ongoing hospitalization for supportive care, IV antibiotics, and physical therapy. Coding Level of Care Code Acute Mental Hygiene Consultant for Chg Fwd Diagnoses Enteritis K52.9 Metabolic encephalopathy G93.41 Fever R50.9 CHERI (acute kidney injury) N17.9 Lactic acidosis E87.20 Debility R53.81 Chronic respiratory failure with hypoxia J96.11 Congestive heart failure I50.9 Heart failure type: other Generalized epilepsy G40.309 COPD (chronic obstructive pulmonary disease) J44.9 COPD type: unspecified COPD Hypokalemia E87.6 Hypophosphatemia E83.39 Hypothyroidism E03.9 Hypertension I10 Steroid dependence F19.20
[2022-05-27] MEDS: aspirin 81 mg Chew Tablet PO (12:36)
[2022-05-27 14:49] LABS: SARS Covid-2 Antigen negative (Negative)
--- NOTE | 2022-05-27 17:26 | PC.NURSE ---
pt iv in rt wrist was placed on 05-23-22...new iv was attempted and failed...pt is a very difficult stick....pt is scheduled to go to rehab tommorow...charge nurse contacted dr frank and he okayed to leave the old iv in without starting a new one since pt will be dcd to rehab tomnmrow
[2022-05-27] MEDS: hydrocortisone 10 mg Tablet PO (17:30)
[2022-05-28] VITALS (7 sets, daily range): BP systolic 85–135; BP diastolic 52–69; PULSE 68–75; RESP 17–20; TEMP 36.3–36.9; O2SAT 90–93
[2022-05-28 03:34] LABS: Basophils % 0.4 %; Hematocrit 36.7 % (42.0-52.0); Hemoglobin 12.3 g/dL (11.7-16.6); Lymphocytes # 1.5 10^3/uL (0.8-4.8); Lymphocytes % 34.1 %; Mean Corpuscular HGB Conc 33.5 g/dL (30.0-36.0); Mean Corpuscular Hemoglobin 31.9 pg (28.0-34.0); Mean Corpuscular Volume 95.1 fl (80-94); Mean Platelet Volume 10.6 fL (7.4-10.4); Monocytes # 0.5 10^3/uL (0.2-0.9); Monocytes % 10.6 %; Neutrophils # 2.45 10^3/uL (1.8-7.7); Neutrophils % 54.2 %; Nucleated Red Blood Cells % 0 %; Platelet Count 144 10^3/cmm (130-400); Red Blood Count 3.86 10^6/uL (4.1-5.3); Red Cell Distribution Width 12.7 % (12.1-15.1); White Blood Count 4.5 10^3/uL (4.0-10.0)
[2022-05-28 04:02] LABS: Albumin Level 2.8 g/dL (3.5-5.2); Anion Gap 9.8 (5-19); Blood Urea Nitrogen 10 mg/dL (8-23); Calcium 8.1 mg/dL (8.5-10.5); Carbon Dioxide 28 mmol/L (22-29); Chloride 101 mmol/L (98-107); Glucose 149 mg/dL (65-115); Magnesium 1.9 mg/dL (1.7-2.3); Potassium 3.8 mmol/L (3.5-5.1); Sodium 135 mmol/L (136-145)
[2022-05-28 04:03] LABS: Slide Review Slide Review Perform
[2022-05-28] MEDS: levothyroxine 112 mcg Tablet PO (06:00)
[2022-05-28] MEDS: FUROsemide 40 mg Tablet PO (08:20)
[2022-05-28] MEDS: levETIRAcetam 500 mg Tablet PO (08:20)
[2022-05-28] MEDS: amlodipine 10 mg Tablet PO (08:20)
[2022-05-28] MEDS: acetaminophen 325 mg Tablet 650 MG PO (10:41)
--- NOTE | 2022-05-28 12:12 | PC.SOCIAL ---
IMM Update pg 2 of IMM updated and reviewed w/ patient. Copy provided and Copy dated, initialed and placed in chart.
--- NOTE | 2022-05-28 12:30 | PM.DCS ---
Discharge Providers Date of Admission: 05/23/22 11:56 Date of Discharge: May 28, 2022 Attending Provider at Admission: Carlos Castaneda MD Attending Provider at Discharge: Macario Cortez MD Primary Care Provider: Trupti Grace MD Diagnoses at Discharge Discharge Diagnosis (1) Enteritis: Status: Acute (2) Metabolic encephalopathy: Status: Acute (3) Fever: Status: Acute (4) CHERI (acute kidney injury): Status: Acute (5) Lactic acidosis: Status: Acute (6) Debility: Status: Acute (7) Chronic respiratory failure with hypoxia: Status: Acute (8) Congestive heart failure: Status: Acute Qualifiers: Heart failure type: other Qualified Code(s): I50.9 - Heart failure, unspecified Permanent problem details: Preserved ejection fraction, right-sided heart failure (9) Generalized epilepsy: Status: Acute (10) COPD (chronic obstructive pulmonary disease): Status: Acute Qualifiers: COPD type: unspecified COPD Qualified Code(s): J44.9 - Chronic obstructive pulmonary disease, unspecified (11) Hypokalemia: Status: Acute (12) Hypophosphatemia: Status: Acute (13) Hypothyroidism: Status: Acute (14) Hypertension: Status: Acute (15) Steroid dependence: Status: Acute Reason for Visit Reason for Visit: Diarrhea Hospital Course Hospital Course Rashid Bolivar is a 86 year old male with a past medical history significant for generalized epilepsy, chronic hypoxic respiratory failure on 2 L baseline, hypertension, hypothyroidism, hypokalemia, and COPD, pituitary macroadenoma, Covid 19 pneumonia, who presents to the emergency department with nausea, emesis, and diarrhea x3 days patient was admitted to [facility] for dehydration, enteritis, intractable nausea. He received fluid therapy, antibiotic therapy, antiemetic therapy clinically monitor. Patient overall clinically improved, diarrhea resolved, cultures so far have been unremarkable. Patient did have a fever during his hospitalization, blood cultures negative, managed with antibiotic therapy, remained afebrile throughout his hospitalization Also had CHERI secondary dehydration, received fluids, kidney function back to baseline Patient also had hypokalemia and hypophosphatemia requiring replacement Also had lactic acidosis likely enteritis, dehydration, Due to patient debility, physical deconditioning, patient was discharged to [facility] facility Physical Exam Const: COMMON NORMALS: no acute distress and patient oriented x3 Resp: COMMON NORMALS: normal respiratory effort, No retractions, No use of accessory muscles and clear to auscultation bilaterally AUSCULTATION: clear to auscultation bilaterally Cardio: COMMON NORMALS: regular rate, regular rhythm, S1 normal heart sound present and S2 normal heart sound present RATE: regular rate RHYTHM: regular rhythm HEART SOUNDS: S1 normal heart sound present and S2 normal heart sound present GI: COMMON NORMALS: Normal to inspection, nondistended, normoactive bowel sounds present and non-tender Extremity: COMMON NORMALS: no pedal edema Neuro: COMMON NORMALS: patient oriented x3 Psych: COMMON NORMALS: mental status grossly normal Discharge Data Studies Completed and Pending Completed Studies During Hospitalization Category Date Time Status CT abdomen pelvis wo con [id number] Stat Cat Scan 05/22/22 10:[address] head wo con* [id number] Routine Cat Scan 05/23/22 14:21 Completed XR chest 1V portable [id number] Stat Exams 05/22/22 16:56 Completed Pending at discharge Category Date Time Status Blood Culture Stat Lab 05/23/22 22:05 Results Radiology Impressions Abdomen/Pelvis CT 05/22/22 10:32 IMPRESSION: Favor enteritis. COMMENTS: Consistent with the [employer]'s Incidental Findings Committee white paper (J Am Aida Radiol 2018): Any incidental renal lesion less than 1 cm or classified as too small to characterize, or any incidental cystic renal lesion characterized as simple-appearing, is likely benign. No follow-up imaging is recommended for these lesions per consensus recommendations based on imaging criteria. Chest X-Ray 05/22/22 16:56 IMPRESSION: 1. Atelectasis or scarring in the right mid lung and left lung base not significantly changed. 2. Enlarged central pulmonary artery suggesting pulmonary hypertension. 3. Mild cardiomegaly. Head CT 05/23/22 14:21 IMPRESSION: 1. No acute intracranial hemorrhage or edema. 2. Atrophy and small vessel ischemic disease with lacunar infarcts. Notified Carlos Castaneda MD at 05/23/2022 2:29 PM. Laboratory Results WBC 4.5 10^3/uL (4.0-10.0) 05/28/22 03:05 RBC 3.86 10^6/uL (4.1-5.3) L 05/28/22 03:05 Hgb 12.3 g/dL (11.7-16.6) 05/28/22 03:05 Hct 36.7 % (42.0-52.0) L 05/28/22 03:05 MCV 95.1 fl (80-94) H 05/28/22 03:05 MCH 31.9 pg (28.0-34.0) 05/28/22 03:05 MCHC 33.5 g/dL (30.0-36.0) 05/28/22 03:05 RDW 12.7 % (12.1-15.1) 05/28/22 03:05 Plt Count 144 10^3/cmm (130-400) 05/28/22 03:05 MPV 10.6 fL (7.4-10.4) H 05/28/22 03:05 Neut % (Auto) 54.2 % 05/28/22 03:05 Lymph % (Auto) 34.1 % 05/28/22 03:05 Burnett % (Auto) 10.6 % 05/28/22 03:05 Eos % (Auto) 0.0 % 05/28/22 03:05 Baso % (Auto) 0.4 % 05/28/22 03:05 Neut # (Auto) 2.45 10^3/uL (1.8-7.7) 05/28/22 03:05 Lymph # (Auto) 1.5 10^3/uL (0.8-4.8) 05/28/22 03:05 Burnett # (Auto) 0.5 10^3/uL (0.2-0.9) 05/28/22 03:05 Eos # (Auto) 0.0 10^3/uL (0.0-0.8) 05/28/22 03:05 Baso # (Auto) 0.0 10^3/uL (0.0-0.1) 05/28/22 03:05 Nucleated RBC % (auto) 0 % 05/28/22 03:05 Nucleated RBCs # 0.0 /100WBC 05/28/22 03:05 Specimen Type Arterial 05/23/22 14:27 Sample Site Radial, right 05/23/22 14:27 ABG pH 7.32 (7.35-7.45) L 05/23/22 14:27 ABG pCO2 55.9 mmHg (35-45) H 05/23/22 14:27 ABG pO2 66.0 mmHg (80.0-100.0) L 05/23/22 14:27 ABG HCO3 28.6 mmol/L (22-26) H 05/23/22 14:27 ABG O2 Saturation 93.9 05/23/22 14:27 ABG Base Excess 1.3 mmol/L (-2.0-2.0) 05/23/22 14:27 Neeraj Test Pos 05/23/22 14:27 A-a O2 Gradient 12.5 mmHg (5-10) H 05/23/22 14:27 Hematocrit 40.2 % (42-52) L 05/23/22 14:27 Hgb O2 Saturation 91.6 % (95-100) L 05/23/22 14:27 Carboxyhemoglobin 1.4 %THgb (0.4-20.1) 05/23/22 14:27 Methemoglobin 1.0 % (0.4-1.5) 05/23/22 14:27 Total Hemoglobin 13.1 g/dL (14-18) L 05/23/22 14:27 Sodium 140.0 mmol/L (131-143) 05/23/22 14:27 Potassium 3.5 mmol/L (3.5-5.0) 05/23/22 14:27 Glucose 155.0 mg/dL (70-115) H 05/23/22 14:27 Ionized Calcium 1.1 mmol/L (1.1-1.4) 05/23/22 14:27 O2 Delivery Device Nc 05/23/22 14:27 O2 Liters/Min 3.0 % 05/23/22 14:27 FiO2 32.0 % 05/23/22 14:27 Concrete Vault Maker ID Monro 05/23/22 14:27 Sodium 135 mmol/L (136-145) L 05/28/22 03:05 Potassium 3.8 mmol/L (3.5-5.1) 05/28/22 03:05 Chloride 101 mmol/L (98-107) 05/28/22 03:05 Carbon Dioxide 28 mmol/L (22-29) 05/28/22 03:05 Anion Gap 9.8 (5-19) 05/28/22 03:05 BUN 10 mg/dL (8-23) 05/28/22 03:05 Creatinine 0.9 mg/dL (0.7-1.2) 05/28/22 03:05 GFR Calculation Not Reportable 05/28/22 03:05 Glucose 149 mg/dL (65-115) H 05/28/22 03:05 POC Glucose 145 mg/dL (70-110) H 05/23/22 14:12 Calculated Osmolality 300 mOsm/kg (285-295) H 05/22/22 11:33 Lactic Acid 3.8 mmol/L (0.5-2.2) H 05/22/22 11:33 Lactic Acid (Sepsis) 3.5 mmol/L (0.5-2.2) H 05/22/22 14:58 Lactate 2.5 mmol/L (0.5-2.2) H 05/24/22 03:34 Calcium 8.1 mg/dL (8.5-10.5) L 05/28/22 03:05 Phosphorus 2.0 mg/dL (2.5-4.5) L 05/28/22 03:05 Magnesium 1.9 mg/dL (1.7-2.3) 05/28/22 03:05 Total Bilirubin 0.6 mg/dL (0.15-1.2) 05/22/22 11:33 AST 47 U/L (0-40) H 05/22/22 11:33 ALT 37 U/L (0-41) 05/22/22 11:33 Alkaline Phosphatase 47 U/L (40-130) 05/22/22 11:33 Total Protein 7.0 g/dL (6.6-8.7) 05/22/22 11:33 Albumin 2.8 g/dL (3.5-5.2) L 05/28/22 03:05 Globulin 3.2 g/dL (1.3-4.6) 05/22/22 11:33 Urine Color Yellow (Yellow) 05/25/22 15:42 Urine Appearance Clear (CLEAR) 05/25/22 15:42 Urine pH 5 (5-7) 05/25/22 15:42 Ur Specific Perkins 1.015 (1.005-1.030) 05/25/22 15:42 Urine Protein Trace (Negative) 05/25/22 15:42 Urine Glucose (UA) Norm (Normal) 05/25/22 15:42 Urine Ketones 1+ (Negative) H 05/25/22 15:42 Urine Blood 2+ (Negative) H 05/25/22 15:42 Urine Nitrate Negative (Negative) 05/25/22 15:42 Urine Bilirubin Neg (Negative) 05/25/22 15:42 Urine Urobilinogen Norm mg/dL (Negative) 05/25/22 15:42 Ur Leukocyte Esterase Negative (Negative) 05/25/22 15:42 Urine RBC None /hpf (0-2) 05/25/22 15:42 Urine WBC 0-4 /hpf (0-5) H 05/25/22 15:42 Ur Squamous Epith Cells None /hpf (0-5) 05/25/22 15:42 Amorphous Sediment Not Reportable 05/25/22 15:42 Urine Bacteria 1+ /hpf (NONE) H 05/25/22 15:42 Fine Granular Casts 0-4 /lpf H 05/25/22 15:42 Ur Random Sodium 24 mmol/L 05/25/22 15:42 Ur Random Urea Nitrogn 310 mg/dL 05/25/22 15:42 Urine Creatinine 129 mg/dL (39-259) 05/25/22 15:42 SARS-CoV-2 Ag (Rapid) negative (Negative) 05/27/22 14:25 Vitals Last Vital Signs Temp 98.4 F 05/28/22 12:27 Pulse 74 05/28/22 12:27 Resp 20 H 05/28/22 12:27 BP 97/59 05/28/22 12:27 Pulse Ox 90 05/28/22 12:27 O2 Del Method 05/28/22 12:27 O2 Flow Rate 4 05/28/22 07:23 FiO2 40 05/24/22 23:42 Discharge Plan Discharge Patient Disposition: Xfer SNF Condition: Stable Prescriptions: New Ultram 50 mg tablet 25 mg PO Q12H PRN (Reason: pain) 7 Days Qty: 7 0RF Continued amlodipine 10 mg tablet 10 mg PO DAILY hydrocortisone 20 mg tablet See Rx Instructions PO DAILY Rx Instructions: 1 tablet in the morning and 0.5tablet in the evening aspirin 81 mg Tablet,Chewable 81 mg PO DAILY@12 Hold Instructions: Resume on 01/14/21. levothyroxine 112 mcg Tablet 112 mcg PO DAILY@07 multivitamin Tablet 1 tab PO DAILY@12 levetiracetam 500 mg tablet 500 mg PO DAILY losartan 50 mg Tablet 50 mg PO DAILY Qty: 30 0RF furosemide [Lasix] 40 mg tablet 40 mg PO DAILY Qty: 30 0RF potassium chloride 10 mEq capsule, extended release 10 meq PO DAILY Qty: 30 0RF Discharge Orders: Discharge Order (Routine); Ordered 05/28/22 Ordered By: Macario Cortez Referrals: [facility] [Outside] Trupti Grace MD [Primary Care Provider] - 4-7 days Discharge Diet: Cardiac Discharge Activity: Resume usual activity Patient Instructions: Tramadol (By mouth) Activity Restrictions/Additional Instructions: - Please use Ultram sparingly for musculoskeletal pain, back pain, joint pain, bilateral knee pain, before and after physical therapy Discharge Attestations Time Spent in Discharge Care*: less than 30 min Status at Discharge: Cognitive status at discharge: cognitively intact, Behavioral status at discharge: cooperative, Quality Metrics Clinical Quality Measures [ No reported AMI, CVA or VTE this stay] Coding Level of Care Code Acute Chg [facility] note Diagnoses Enteritis K52.9 Metabolic encephalopathy G93.41 Fever R50.9 CHERI (acute kidney injury) N17.9 Lactic acidosis E87.20 Debility R53.81 Chronic respiratory failure with hypoxia J96.11 Congestive heart failure I50.9 Heart failure type: other Generalized epilepsy G40.309 COPD (chronic obstructive pulmonary disease) J44.9 COPD type: unspecified COPD Hypokalemia E87.6 Hypophosphatemia E83.39 Hypothyroidism E03.9 Hypertension I10 Steroid dependence F19.20
[2022-05-28] MEDS: aspirin 81 mg Chew Tablet PO (13:10)
== END 2022-05-28 14:06 | disposition skilled nursing facility (03) | DRG 391 ==
LOC: ER 13:47 → MEDSURG 18:07
PROVIDERS: Internal Medicine; Admitting Provider Internal Medicine; Emergency Provider Family Medicine; PCP Family Medicine; Visit Provider Family Medicine
DX: K52.9 Noninfective gastroenteritis and colitis, unspecified (principal); G93.41 Metabolic encephalopathy; J96.11 Chronic respiratory failure with hypoxia; I50.32 Chronic diastolic (congestive) heart failure; N17.9 Acute kidney failure, unspecified; G81.94 Hemiplegia, unspecified affecting left nondominant side; E87.20 Acidosis, unspecified; E86.0 Dehydration; E87.6 Hypokalemia; E83.39 Other disorders of phosphorus metabolism; R27.8 Other lack of coordination; R53.81 Other malaise; R11.2 Nausea with vomiting, unspecified; I11.0 Hypertensive heart disease with heart failure; I50.810 Right heart failure, unspecified; G40.409 Other generalized epilepsy and epileptic syndromes, not intractable, without status epilepticus; J44.9 Chronic obstructive pulmonary disease, unspecified; E03.9 Hypothyroidism, unspecified; I25.2 Old myocardial infarction; G47.33 Obstructive sleep apnea (adult) (pediatric); I73.9 Peripheral vascular disease, unspecified; Z79.52 Long term (current) use of systemic steroids; Z79.82 Long term (current) use of aspirin; Z85.51 Personal history of malignant neoplasm of bladder; Z87.891 Personal history of nicotine dependence
CPT/HCPCS: 36415; 36416; 36600; 70450; 71045; 74176; 80051; 80053; 80069; 81001; 82330; 82570; 82805; 82962; 83605; 83735; 84300; 84540; 85025; 87040; 87086; 87426; 87493; 87506; 93005; 94660; 96360; 96361; 97116; 97162; 97530; 99285; G0378; J2405; J2543; J7030; J8499

== ENCOUNTER → 2022-06-29 09:58 | Outpatient (BNVA) | payer MEDICARE, OTHER, SELFPAY | PROVIDERS: PCP Family Medicine; Visit Provider Urology | DX: C67.9 Malignant neoplasm of bladder, unspecified (principal); J44.9 Chronic obstructive pulmonary disease, unspecified; R91.8 Other nonspecific abnormal finding of lung field; Z99.81 Dependence on supplemental oxygen; Z87.891 Personal history of nicotine dependence; I27.23 Pulmonary hypertension due to lung diseases and hypoxia; G47.33 Obstructive sleep apnea (adult) (pediatric); R09.02 Hypoxemia; G93.31 Postviral fatigue syndrome | CPT/HCPCS: 52000; 52224; 81003; 99214 ==

== ENCOUNTER → 2022-07-10 09:22 | Outpatient (BNVA) | payer MEDICARE, OTHER, SELFPAY | PROVIDERS: PCP Family Medicine; Visit Provider Podiatrist Foot & Ankle Surgery | DX: E11.8 Type 2 diabetes mellitus with unspecified complications (principal); L60.3 Nail dystrophy; M20.41 Other hammer toe(s) (acquired), right foot; M20.42 Other hammer toe(s) (acquired), left foot; I73.9 Peripheral vascular disease, unspecified; L84 Corns and callosities | CPT/HCPCS: 11055; 11721 ==

== ENCOUNTER → 2022-07-13 09:19 | Outpatient (BNVA) | payer MEDICARE, OTHER, SELFPAY | PROVIDERS: PCP Family Medicine; Visit Provider Nurse Practitioner | DX: G40.309 Generalized idiopathic epilepsy and epileptic syndromes, not intractable, without status epilepticus (principal) | CPT/HCPCS: 99213 ==

== ENCOUNTER → 2022-10-10 12:55 | Outpatient (BNVA) | payer MEDICARE, OTHER, SELFPAY | PROVIDERS: PCP Family Medicine; Visit Provider Podiatrist Foot & Ankle Surgery | DX: E11.8 Type 2 diabetes mellitus with unspecified complications (principal); L60.8 Other nail disorders; L60.3 Nail dystrophy; M20.41 Other hammer toe(s) (acquired), right foot; M20.42 Other hammer toe(s) (acquired), left foot; I73.9 Peripheral vascular disease, unspecified; L84 Corns and callosities | CPT/HCPCS: 11721 ==

== ENCOUNTER → 2022-10-29 14:16 | Outpatient (BNVA) | payer MEDICARE, MEDICAID, SELFPAY | PROVIDERS: PCP Family Medicine; Visit Provider Urology | DX: C67.9 Malignant neoplasm of bladder, unspecified (principal) | CPT/HCPCS: 52000; 81003 ==

== ENCOUNTER → 2022-12-05 13:10 | Outpatient (BNVA) | payer MEDICARE, OTHER, MEDICAID, SELFPAY | PROVIDERS: PCP Family Medicine; Visit Provider Podiatrist Foot & Ankle Surgery | DX: E11.8 Type 2 diabetes mellitus with unspecified complications (principal); L60.8 Other nail disorders; L60.3 Nail dystrophy; M20.41 Other hammer toe(s) (acquired), right foot; M20.42 Other hammer toe(s) (acquired), left foot; I73.9 Peripheral vascular disease, unspecified; L84 Corns and callosities | CPT/HCPCS: 11055; 11721 ==

== ENCOUNTER 2023-03-09 23:44 | Emergency (ER) | payer MEDICARE, MEDICAID, SELFPAY ==
[2023-03-09 23:46] VITALS: BP 138/77; PULSE 72; RESP 18; TEMP 36.6; O2SAT 94; BMI 34.5
--- NOTE | 2023-03-10 00:16 | XRR_ITS ---
PROCEDURE INFORMATION: Exam: XR Left Foot Exam date and time: 03/10/2023 12:20 AM Age: 87 years old Clinical indication: Injury or trauma; Fall; Left first toe and left middle toe and left fourth toe; Foreign body involvement not specified; Patient HX: Patient fell out of chair at home and sustained lacerations to dorsal side of 2nd-4th toes. ; Additional info: Fall, bruised 2nd/3rd toes but possible forefoot injury, too TECHNIQUE: Imaging protocol: Radiologic exam of the left foot. Views: 3 or more views. COMPARISON: [place] [id number] 02/20/2021 3:05 PM FINDINGS: Bones/joints: The bones are osteopenic. Fracture through the base of the 3rd, 4th and 5th proximal phalanges. Soft tissues: Normal. XR/XR foot LT min 3V* [id number] IMPRESSION: Fracture through the base of the 3rd, 4th and 5th proximal phalanges.
--- NOTE | 2023-03-10 00:17 | ED_ITS ---
HPI - Fall General: Chief Complaint: Fall Stated Complaint: left foot injury post fall Time Seen by Provider: 03/09/23 23:47 Source: patient Mode of arrival: wheelchair Limitations: no limitations History of Present Illness: Patient presents to the emergency department today accompanied by his family for evaluation treatment of injury sustained to his left foot and toes. Patient states he got up out of his recliner tonight and started to walk across the living room when he experienced a mechanical fall. Patient takes an 81 mg aspirin but no other blood thinners however, was concerned as the patient's foot/toes on the underside were bleeding and stated she was unable to get it stopped. Patient has bruising, swelling, and pain of the foot and toes and comes in for full evaluation. Review of Systems General: Reports: 10 or more systems reviewed and unremarkable except in HPI and below PFSH ED PFSH: Medical History Acute encephalopathy Acute exacerbation of chronic obstructive airways disease Acute respiratory failure with hypoxia Acute respiratory failure with hypoxia Adrenal insufficiency CHERI (acute kidney injury) Altered mental status Bilateral leg edema Bladder cancer Clinical diagnosis only: Cystoscopy for hematuria April 2022 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 He elected fulguration in the clinic without formal biopsy given age and other medical problems this was felt to be a very reasonable compromise. Callus of foot CHF (congestive heart failure) Chronic respiratory failure with hypoxia COPD (chronic obstructive pulmonary disease) COVID-19 COVID-19 Dyspnea on exertion Elevated brain natriuretic peptide (BNP) level Elevated d-dimer Elevated lactic acid level Gallbladder polyp Gross hematuria Hammertoes of both feet Hospital discharge follow-up Hypertension Hypocalcemia Hypothyroidism Hypoxia Lichen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 Lingular pneumonia Lung nodule Nocturnal hypoxia NSTEMI (non-ST elevated myocardial infarction) NSVT (nonsustained ventricular tachycardia) Onychodystrophy Oral thrush REX (obstructive sleep apnea) Peripheral arterial disease Pneumonia Post viral syndrome Postop check Pulmonary hypertension PVD (peripheral vascular disease) Recurrent syncope Renal insufficiency Rhinovirus Sepsis Septic shock Syncope Thyroid disease Surgical History H/O brain surgery History of gastric surgery History of prostate surgery Family History Denies family history of Diabetes CAD (coronary artery disease) Clotting disorder Dementia Hyperlipidemia Psychiatric illness Chronic kidney disease (CKD) Suicide Anesthesia complication Bleeding disorder Family history of premature coronary artery disease Lung disease Cancer Hypertension Stroke Social History Smoking and tobacco status: former smoker Quit status (tobacco): has quit using tobacco Year quit tobacco: 1999 [id number] cig/pipe Second hand smoke exposure: No Smoking risk assessment/counseling performed?: Yes Alcohol intake: never Substance/Drug Use: never Lives independently: Yes Household members: spouse Housing: House Marital status: service: No Current occupational status: retired Pets and animals: No Do you think of yourself as: Straight/Heterosexual Current gender identity: Male Physical Exam Const: COMMON NORMALS: no acute distress, patient oriented x3 and alert HENMT: COMMON NORMALS: normocephalic, atraumatic and hearing grossly normal bilaterally HEAD & SCALP: normocephalic and atraumatic Eye: COMMON NORMALS: Equal, round and reactive pupils present, EOMs intact bilaterally and conjunctivae normal CONJUNCTIVA: Yes conjunctivae normal PUPIL: Yes Equal, round and reactive pupils present Neck/C-Spine: COMMON NORMALS: full ROM and no JVD Lymph: LYMPHATIC: no lymphadenopathy noted Resp: COMMON NORMALS: normal respiratory effort, No retractions and No use of accessory muscles Cardio: COMMON NORMALS: no JVD and regular rate RATE: regular rate Extremity: NARRATIVE EXTREMITY EXAM: Patient has obvious swelling and bruising of the left second and third toes. There is coagulated blood in the webspaces and difficult to assess on initial examination the original source of the bleeding. Patient still demonstrates mobility of the toes. Neuro: COMMON NORMALS: patient oriented x3 SENSORIUM/ORIENTATION: Yes alert Psych: COMMON NORMALS: mental status grossly normal, Normal thought process present, cooperative and normal affect THOUGHT PROCESS: Normal thought process present Skin: COMMON NORMALS: no rashes or lesions noted and turgor normal NARRATIVE SKIN EXAM: Patient has lacerations to the plantar surface of the base of the third, fourth, and fifth toes with active oozing of blood. GENERAL SKIN EXAM: no rashes or lesions noted and turgor normal Procedures Laceration Laceration 1: Site: other (Plantar surface of proximal left third toe) Side (If applicable): left Size (cm): 1 Description: linear Depth: simple, single layer Local Anesthetic: lidocaine 1% Amount of anesthesia used (mL): 2 Pre-repair: wound explored, irrigated extensively and deep structures intact Skin layer closed with: nylon Size (cm): 4-0 Number of sutures: 3 Technique: simple, interrupted Laceration 2: Site: other (Plantar surface of the proximal left fourth toe) Side (If applicable): left Size (cm): 1.5 Description: linear Depth: simple, single layer Local Anesthetic: lidocaine 1% Amount of anesthesia used (mL): 2 Pre-repair: wound explored and irrigated extensively Skin layer closed with: nylon Size (cm): 4-0 Number of sutures: 4 Technique: simple, interrupted Laceration 3: Site: other (Plantar surface of the proximal left fifth toe and webspace) Side (If applicable): left Size (cm): 1 Description: linear Depth: simple, single layer Local Anesthetic: lidocaine 1% Amount of anesthesia used (mL): 2 Pre-repair: wound explored and irrigated extensively Skin layer closed with: nylon Size (cm): 4-0 Number of sutures: 3 Technique: simple, interrupted Course Vital Signs: Vital signs: Vital Signs Temperature 97.9 F 03/09/23 23:46 Pulse Rate 66 03/10/23 01:42 Respiratory Rate 18 03/10/23 01:42 Blood Pressure 157/76 03/10/23 01:42 Pulse Oximetry 97 03/10/23 01:42 Oxygen Delivery Me thod Nasal Cannula 03/10/23 01:42 Oxygen Flow Rate 3 03/10/23 01:42 MDM - Fall Medical Decision Making Patient is x-rays confirm fracture of the third, fourth, and fifth proximal phalanx of the left toes. This does correlate with the laceration sustained making these open fractures. I did notify Dr. Queen of this finding. He r ecommended IV Ancef and will discharge with oral Keflex. We did reapproximate the wounds by placing the sutures and bandaging. Referral to podiatry initiated for close follow-up. Wound care and suture care instructions were given to the patient. He was put into a walking boot as he does have a walker at home to help with weightbearing but, need him to be more of a heel touch balance than a toe-touch due to his injuries. Patient and verbalized understanding and agreement to treatment plan. Differential Diagnosis Unlikely syncope, fracture of wrist, compression fracture or concussion without loss of consciousness Lab Data Radiology Impressions Foot X-Ray 03/10/23 00:16 IMPRESSION: Fracture through the base of the 3rd, 4th and 5th proximal phalanges. All radiology interpretation(s) finalized by discharge Discharge Plan Discharge Patient Disposition: Home Clinical Impression: Open fracture of phalanx of left third toe, Open fracture of fourth toe of left foot, Open fracture of fifth toe of left foot, Laceration of toe of left foot with complication Condition: Stable Prescriptions: New cephalexin 500 mg capsule 500 mg PO Q6H 10 Days Qty: 40 0RF No Action amlodipine 10 mg tablet 10 mg PO DAILY hydrocortisone 20 mg tablet See Rx Instructions PO DAILY Rx Instructions: 1 tablet in the morning and 0.5tablet in the evening lidocaine HCl 2 % jelly 1 applic intra-urethral ONCE Qty: 1 0RF aspirin 81 mg Tablet,Chewable 81 mg PO DAILY@12 Hold Instructions: Resume on 01/14/21. levothyroxine 112 mcg Tablet 112 mcg PO DAILY@07 multivitamin Tablet 1 tab PO DAILY@12 levetiracetam 500 mg tablet 500 mg PO DAILY losartan 50 mg Tablet 50 mg PO DAILY Qty: 30 0RF furosemide [Lasix] 40 mg tablet 40 mg PO DAILY Qty: 30 0RF potassium chloride 10 mEq capsule, extended release 10 meq PO DAILY Qty: 30 0RF Discharge Orders: Discharge ED (Routine); Ordered 03/10/23 Ordered By: Gloria Johnston Other Ambulatory Orders: DME: Miscellaneous (Order) Timeframe: 2 Months Facility: [facility] - Location: Emergency Room Ordered By: Gloria Johnston Referrals: Trupti Grace MD [Primary Care Provider] - Discharge Diet: Usual diet Discharge Activity: Limit activity as instructed Patient Instructions: Wound Care (General) Activity Restrictions/Additional Instructions: X-ray today shows fracture to the proximal portion of your left third, fourth, and fifth toes. Unfortunately, each of these has a laceration associated with it making this an open fracture. These are higher risk for infection which is why we provided your first dose of antibiotic here in the emergency department and a prescription to be picked up and continued in the morning. We have also requested a follow-up appoint with podiatry for continued monitoring as this needs to be closely evaluated. As you need to remain nonweightbearing on these toes, we are putting you in a walking boot which will help alleviate pressure on your forefoot and you need to use your walker at all times to help alleviate full weightbearing on the left lower extremity. We recommend leaving your bandaging on for 24 to 36 hours. This will help curb any residual bleeding and begin the healing process. You have 3 sutures in your third digit, 4 sutures in your fourth digit, and 3 sutures in your fifth digit. When you remove your bandaging, we recommend washing the wound at least once if not twice a day with warm water and a mild soap. You may wish to soak the foot in soapy warm water for cleaning. Afterwards, dry thoroughly and replace with standard bandaging. Make sure you are keeping your foot protected and covered at all times. This may include wearing your walking boot in bed to prevent rolling over or accidentally manipulating your toes causing reinjury to the bones or reopening of your wounds. You may wish to call the shift lab technician office on Saturday to discuss facilitating the follow-up appointment. The referral has been placed from the [facility] department [facility] your [facility]. Coding Level of Care Code ED Concrete Bucket Loader for Jose Rojas
[2023-03-10] MEDS: lidocaine 1% INJ 10 mL (per mL) INTRADERMA (01:17)
[2023-03-10] MEDS: ceFAZolin 2,000 MG in sodium chloride 0.9% (plus) 50 ML 100 MG IV (01:38)
[2023-03-10 01:42] VITALS: BP 157/76; PULSE 66; RESP 18; O2SAT 97
[2023-03-10 02:45] VITALS: BP 166/79; PULSE 70; RESP 18; O2SAT 97
--- NOTE | 2023-03-11 08:44 | PC.SOCIAL ---
Podiatry Referral Referral to podiatry at this time. Clinic to contact patient with appt date/time.
== END 2023-03-10 02:45 | disposition home or self-care (01) ==
PROVIDERS: Emergency Provider Physician Assistant; PCP Family Medicine
DX: S92.592B Other fracture of left lesser toe(s), initial encounter for open fracture (principal); Z79.82 Long term (current) use of aspirin; Z87.891 Personal history of nicotine dependence; Z85.51 Personal history of malignant neoplasm of bladder; I11.0 Hypertensive heart disease with heart failure; I50.9 Heart failure, unspecified; J44.9 Chronic obstructive pulmonary disease, unspecified; I25.2 Old myocardial infarction; W18.39XA Other fall on same level, initial encounter
CPT/HCPCS: 12002; 73630; 96365; 99284; A6446; J0690

== ENCOUNTER → 2023-03-14 10:38 | Outpatient (BNVA) | payer MEDICARE, MEDICAID, SELFPAY | PROVIDERS: PCP Family Medicine; Visit Provider Podiatrist Foot & Ankle Surgery | DX: S92.502B Displaced unspecified fracture of left lesser toe(s), initial encounter for open fracture (principal); X58.XXXA Exposure to other specified factors, initial encounter | CPT/HCPCS: 99213 ==

== ENCOUNTER → 2023-03-20 15:00 | Outpatient (BNVA) | payer MEDICARE, MEDICAID, SELFPAY | PROVIDERS: PCP Family Medicine; Visit Provider Podiatrist Foot & Ankle Surgery | DX: M20.41 Other hammer toe(s) (acquired), right foot (principal); M20.42 Other hammer toe(s) (acquired), left foot; I73.9 Peripheral vascular disease, unspecified; S92.502B Displaced unspecified fracture of left lesser toe(s), initial encounter for open fracture; X58.XXXA Exposure to other specified factors, initial encounter | CPT/HCPCS: 99213 ==

== ENCOUNTER → 2023-04-01 14:45 | Outpatient (BNVA) | payer MEDICARE, MEDICAID, SELFPAY | PROVIDERS: PCP Family Medicine; Visit Provider Podiatrist Foot & Ankle Surgery | DX: M20.41 Other hammer toe(s) (acquired), right foot; M20.42 Other hammer toe(s) (acquired), left foot; I73.9 Peripheral vascular disease, unspecified; S92.502D Displaced unspecified fracture of left lesser toe(s), subsequent encounter for fracture with routine healing; X58.XXXD Exposure to other specified factors, subsequent encounter | CPT/HCPCS: 73630; 99213 ==

== ENCOUNTER 2023-04-06 09:17 | Emergency (ER) | payer MEDICARE, MEDICAID, SELFPAY ==
[2023-04-06 09:24] VITALS: BP 150/79; PULSE 77; RESP 17; TEMP 36.7; O2SAT 95; BMI 35.9
[2023-04-06 09:35] VITALS: BP 140/78; RESP 16
--- NOTE | 2023-04-06 09:59 | XRR_ITS ---
PROCEDURE INFORMATION: Exam: XR Left Knee Exam date and time: 04/06/2023 10:05 AM Age: 87 years old Clinical indication: Injury or trauma; Fall; Blunt trauma; Knee; Left; Additional info: Fall with pain TECHNIQUE: Imaging protocol: Radiologic exam of the left knee. Views: 3 views. COMPARISON: CR (LOW EXM, ) 03/10/2023 12:20 AM FINDINGS: Bones/joints: Tricompartment degenerative change. No evidence of fracture. Soft tissues: Normal. No joint effusion XR/XR knee LT 3V* [id number] IMPRESSION: Tricompartment degenerative change. No acute process
--- NOTE | 2023-04-06 11:01 | W.ED.EXTPRO ---
HPI - Extremity Problem General: Chief complaint: Extremity Injury, Lower Stated complaint: left knee pain Time Seen by Provider: 04/06/23 09:22 History of Present Illness: 87-year-old male presents the emergency department chief complaint of ongoing left knee pain after he sustained a fall to it. The patient reports reduced range of motion in the knee due to pain he reports no numbness or tingling distally reports no other associated injuries. Associated symptoms: Deny chest pain, fever(s) or rash Review of Systems General: Reports: 10 or more systems reviewed and unremarkable except in HPI and below Const: Denies: fever(s), chills, fatigue or malaise Eyes: Denies: change in vision or blurry vision Card: Denies: chest pain or palpitations Resp: Denies: dyspnea or productive cough GI: Denies: abdominal pain, nausea or vomiting : Denies: flank pain Musc: Reports: extremity pain and extremity swelling Skin/Breast: Denies: rash or pruritus Neuro: Denies: headache(s) Psych: Denies: anxiety or depression Gumaro/Lymph: Denies: easy bleeding All/Imm: Denies: urticaria, throat swelling or facial swelling PFSH ED PFSH: Medical History Acute encephalopathy Acute exacerbation of chronic obstructive airways disease Acute respiratory failure with hypoxia Acute respiratory failure with hypoxia Adrenal insufficiency CHERI (acute kidney injury) Altered mental status Bilateral leg edema Bladder cancer Clinical diagnosis only: Cystoscopy for hematuria April 2022 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 He elected fulguration in the clinic without formal biopsy given age and other medical problems this was felt to be a very reasonable compromise. Callus of foot CHF (congestive heart failure) Chronic respiratory failure with hypoxia COPD (chronic obstructive pulmonary disease) COVID-19 COVID-19 Dyspnea on exertion Elevated brain natriuretic peptide (BNP) level Elevated d-dimer Elevated lactic acid level Gallbladder polyp Gross hematuria Hammertoes of both feet Hospital discharge follow-up Hypertension Hypocalcemia Hypothyroidism Hypoxia Lichen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 Lingular pneumonia Lung nodule Nocturnal hypoxia NSTEMI (non-ST elevated myocardial infarction) NSVT (nonsustained ventricular tachycardia) Onychodystrophy Oral thrush REX (obstructive sleep apnea) Peripheral arterial disease Pneumonia Post viral syndrome Postop check Pulmonary hypertension PVD (peripheral vascular disease) Recurrent syncope Renal insufficiency Rhinovirus Sepsis Septic shock Syncope Thyroid disease Surgical History H/O brain surgery History of gastric surgery History of prostate surgery Family History Denies family history of Diabetes CAD (coronary artery disease) Clotting disorder Dementia Hyperlipidemia Psychiatric illness Chronic kidney disease (CKD) Suicide Anesthesia complication Bleeding disorder Family history of premature coronary artery disease Lung disease Cancer Hypertension Stroke Social History Smoking and tobacco/nicotine status: former use of tobacco/nicotine Quit status (tobacco/nicotine): has quit using Year quit tobacco: 1999 [id number] cig/pipe Second hand smoke exposure: No Alcohol intake: never Substance/Drug Use: never Lives independently: Yes Household members: spouse Housing: House Marital status: service: No Current occupational status: retired Pets and animals: No Do you think of yourself as: Straight/Heterosexual Current gender identity: Male Physical Exam Const: COMMON NORMALS: no acute distress, patient oriented x3 and healthy appearing HENMT: COMMON NORMALS: normocephalic and atraumatic HEAD & SCALP: normocephalic and atraumatic Eye: COMMON NORMALS: Equal, round and reactive pupils present and EOMs intact bilaterally PUPIL: Yes Equal, round and reactive pupils present Neck/C-Spine: COMMON NORMALS: full ROM, supple and no JVD Lymph: LYMPHATIC: no lymphadenopathy noted Chest: COMMONS NORMALS: normal inspection of the chest and normal palpation of entire chest wall Resp: COMMON NORMALS: normal respiratory effort, No retractions and clear to auscultation bilaterally EFFORT & INSPECTION: Yes able to speak in complete sentences and Yes symmetric chest movement AUSCULTATION: clear to auscultation bilaterally Cardio: COMMON NORMALS: no JVD, regular rate and regular rhythm RATE: regular rate RHYTHM: regular rhythm GI: COMMON NORMALS: Normal to inspection, nondistended, normoactive bowel sounds present, Soft to palpation and non-tender INSPECTION: Yes normal to inspection PALPATION: Yes Soft to palpation : COMMON NORMALS: Yes no CVA tenderness BLADDER/KIDNEY EXAM: Yes no CVA tenderness Back/Pelvis: COMMON NORMALS: no CVA tenderness Extremity: COMMON NORMALS: negative for normal to inspection (Mild pain to palpation located of the anterior left knee full range of kymberly) and negative for full ROM Neuro: COMMON NORMALS: patient oriented x3, CN's II-XII intact bilaterally, moves all extremities and no focal motor deficits Psych: COMMON NORMALS: mental status grossly normal, Normal thought process present, cooperative and normal affect THOUGHT PROCESS: Normal thought process present Skin: COMMON NORMALS: no rashes or lesions noted GENERAL SKIN EXAM: no rashes or lesions noted Course Vital Signs: Vital signs: Vital Signs Temperature 98.1 F 04/06/23 09:24 Pulse Rate 87 04/06/23 11:21 Respiratory Rate 16 04/06/23 11:21 Blood Pressure 144/76 04/06/23 11:21 Pulse Oximetry 96 04/06/23 11:21 Oxygen Delivery Me thod Nasal Cannula 04/06/23 09:35 Oxygen Flow Rate 3 04/06/23 09:35 MDM - Extremity (Nontraumatic) Medical Decision Making Due to patient's symptoms and condition x-ray imaging left knee was obtained this revealed no acute underlying process just revealing tricompartmental arthritis. The patient was placed in a Wayne wrap for comfort started on some tramadol for any breakthrough pain advised to further follow-up primary care in 2 to 3 days in which advised return the interim if any of his symptoms persist or worse. Lab Data Radiology Impressions Knee X-Ray 04/06/23 09:59 IMPRESSION: Tricompartment degenerative change. No acute process All radiology interpretation(s) finalized by discharge ED provider radiology interpretation(s): Unremarkable per radiology Discharge Plan Discharge Patient Disposition: Home Clinical Impression: Knee strain, Arthritis of knee Condition: Stable Prescriptions: New tramadol 50 mg tablet 50 mg PO Q8H PRN (Reason: pain) Qty: 10 0RF No Action amlodipine 10 mg tablet 10 mg PO DAILY hydrocortisone 20 mg tablet See Rx Instructions PO DAILY Rx Instructions: 1 tablet in the morning and 0.5tablet in the evening lidocaine HCl 2 % jelly 1 applic intra-urethral ONCE Qty: 1 0RF aspirin 81 mg Tablet,Chewable 81 mg PO DAILY@12 Hold Instructions: Resume on 01/14/21. levothyroxine 112 mcg Tablet 112 mcg PO DAILY@07 multivitamin Tablet 1 tab PO DAILY@12 levetiracetam 500 mg tablet 500 mg PO DAILY losartan 50 mg Tablet 50 mg PO DAILY Qty: 30 0RF furosemide [Lasix] 40 mg tablet 40 mg PO DAILY Qty: 30 0RF potassium chloride 10 mEq capsule, extended release 10 meq PO DAILY Qty: 30 0RF Discharge Orders: Discharge ED (Routine); Ordered 04/06/23 Ordered By: Miles Cohen Referrals: Trupti Grace MD [Primary Care Provider] - 1-3 days Discharge Diet: Advance as tolerated Discharge Activity: Increase activity as tolerated Patient Instructions: Knee Sprain (ED), Knee Pain (ED), Arthritis (ED), Opioid Safety, Pain Management Activity Restrictions/Additional Instructions: Please further follow-up your primary care doctor in 3 to 5 days please take medications as prescribed please use covered ice pack to the affected area to help reduce swelling in which please return the interim if any of your symptoms persist or worse Coding Level of Care Code ED Projection Printer for Jose Rojas
[2023-04-06 11:21] VITALS: BP 144/76; PULSE 87; RESP 16; O2SAT 96
== END 2023-04-06 11:29 | disposition home or self-care (01) ==
PROVIDERS: Emergency Provider Emergency Medicine; PCP Family Medicine
DX: M13.862 Other specified arthritis, left knee (principal); S86.912A Strain of unspecified muscle(s) and tendon(s) at lower leg level, left leg, initial encounter; Z79.82 Long term (current) use of aspirin; Z87.891 Personal history of nicotine dependence; J44.9 Chronic obstructive pulmonary disease, unspecified; Z85.51 Personal history of malignant neoplasm of bladder; I11.0 Hypertensive heart disease with heart failure; I50.9 Heart failure, unspecified; I25.2 Old myocardial infarction; W19.XXXA Unspecified fall, initial encounter
CPT/HCPCS: 73562; 99283

== ENCOUNTER → 2023-04-30 15:07 | Outpatient (BNVA) | payer MEDICARE, MEDICAID, SELFPAY | PROVIDERS: PCP Family Medicine; Visit Provider Podiatrist Foot & Ankle Surgery | DX: M20.41 Other hammer toe(s) (acquired), right foot; M20.42 Other hammer toe(s) (acquired), left foot; I73.9 Peripheral vascular disease, unspecified; S92.502D Displaced unspecified fracture of left lesser toe(s), subsequent encounter for fracture with routine healing; X58.XXXD Exposure to other specified factors, subsequent encounter | CPT/HCPCS: 73630; 99213 ==

== ENCOUNTER → 2023-07-16 11:02 | Outpatient (BNVA) | payer MEDICARE, MEDICAID, SELFPAY | PROVIDERS: PCP Family Medicine; Visit Provider Podiatrist Foot & Ankle Surgery | DX: L60.3 Nail dystrophy (principal); I73.9 Peripheral vascular disease, unspecified; L84 Corns and callosities | CPT/HCPCS: 11055; 11721 ==

== ENCOUNTER 2023-07-23 07:41 | Emergency (ER) | payer MEDICARE, MEDICAID, SELFPAY ==
[2023-07-23 07:44] VITALS: BP 153/79; PULSE 69; RESP 18; TEMP 36.4; O2SAT 95; BMI 38.0
--- NOTE | 2023-07-23 08:11 | W.ED.BACK ---
HPI - Back Pain/Injury General: Chief Complaint: Back Pain/Injury Stated Complaint: Back Pain Time Seen by Provider: 07/23/23 07:42 History of Present Illness: 87-year-old male presents emergency room planing of low back pain that began overnight he has chronic back pain last couple days it has been getting worse markedly worse this morning. No difficulty with bowel or bladder function no trauma. No fecal incontinence no urinary retention PFSH ED PFSH: Medical History Chronic respiratory failure with hypoxia Bladder cancer Clinical diagnosis only: Cystoscopy for hematuria April 2022 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 He elected fulguration in the clinic without formal biopsy given age and other medical problems this was felt to be a very reasonable compromise. Lichen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 Gross hematuria Callus of foot Acute respiratory failure with hypoxia Hypocalcemia Acute exacerbation of chronic obstructive airways disease Pulmonary hypertension Renal insufficiency Lung nodule Acute encephalopathy NSTEMI (non-ST elevated myocardial infarction) CHF (congestive heart failure) Septic shock Pneumonia Postop check Dyspnea on exertion NSVT (nonsustained ventricular tachycardia) Gallbladder polyp Syncope Lingular pneumonia Rhinovirus Recurrent syncope Oral thrush Altered mental status COPD (chronic obstructive pulmonary disease) Nocturnal hypoxia REX (obstructive sleep apnea) Bilateral leg edema Post viral syndrome Hospital discharge follow-up Adrenal insufficiency Hypothyroidism Elevated brain natriuretic peptide (BNP) level Elevated d-dimer CHERI (acute kidney injury) Elevated lactic acid level Hypertension Acute respiratory failure with hypoxia Sepsis Hypoxia COVID-19 COVID-19 Thyroid disease Peripheral arterial disease Hammertoes of both feet Onychodystrophy PVD (peripheral vascular disease) Surgical History H/O brain surgery History of gastric surgery History of prostate surgery Family History Denies family history of Diabetes CAD (coronary artery disease) Clotting disorder Dementia Hyperlipidemia Psychiatric illness Chronic kidney disease (CKD) Suicide Anesthesia complication Bleeding disorder Family history of premature coronary artery disease Lung disease Cancer Hypertension Stroke Social History Smoking and tobacco/nicotine status: former use of tobacco/nicotine Quit status (tobacco/nicotine): has quit using Year quit tobacco: 1999 [id number] cig/pipe Second hand smoke exposure: No Alcohol intake: never Substance/Drug Use: never Lives independently: Yes Household members: spouse Housing: House Marital status: service: No Current occupational status: retired Pets and animals: No Do you think of yourself as: Straight/Heterosexual Current gender identity: Male Course Vital Signs: Vital signs: Vital Signs Temperature 97.6 F 07/23/23 07:44 Pulse Rate 69 07/23/23 07:44 Respiratory Rate 18 07/23/23 07:44 Blood Pressure 153/79 07/23/23 07:44 Pulse Oximetry 95 07/23/23 07:44 MDM - Back Pain/Injury Medical Decision Making Chronic back pain worse over the last couple of days no acute injury. Plain films show L1 and L3 compression fractures. Discharged home with pain medications and follow-up MRI and referral to orthopedic surgery. Medical Records I reviewed the patient's medical records. Labs I reviewed the patient's lab results. All radiology interpretation(s) finalized by discharge Discharge Plan Discharge Patient Disposition: Home Clinical Impression: Compression fracture of lumbar spine, non-traumatic Condition: Stable Prescriptions: New tramadol 50 mg tablet 50 mg PO Q8H PRN (Reason: pain) Qty: 20 0RF No Action amlodipine 10 mg tablet 10 mg PO DAILY hydrocortisone 20 mg tablet See Rx Instructions PO DAILY Rx Instructions: 1 tablet in the morning and 0.5tablet in the evening lidocaine HCl 2 % jelly 1 applic intra-urethral ONCE Qty: 1 0RF aspirin 81 mg Tablet,Chewable 81 mg PO DAILY@12 Hold Instructions: Resume on 01/14/21. levothyroxine 112 mcg Tablet 112 mcg PO DAILY@07 multivitamin Tablet 1 tab PO DAILY@12 levetiracetam 500 mg tablet 500 mg PO DAILY losartan 50 mg Tablet 50 mg PO DAILY Qty: 30 0RF furosemide [Lasix] 40 mg tablet 40 mg PO DAILY Qty: 30 0RF potassium chloride 10 mEq capsule, extended release 10 meq PO DAILY Qty: 30 0RF tramadol 50 mg tablet 50 mg PO Q8H PRN (Reason: pain) Qty: 10 0RF Discharge Orders: Discharge ED (Routine); Ordered 07/23/23 Ordered By: Willis Gonzales Referrals: Trupti Grace MD [Primary Care Provider] - Discharge Diet: Usual diet Discharge Activity: Increase activity as tolerated Patient Instructions: Opioid Safety, Pain Management Activity Restrictions/Additional Instructions: Thank you for choosing [facility] for your healthcare needs today. Please realize this is an emergency room and that we are providing you with a medical screening exam and this may not be complete and all inclusive of all the testing and or work up that you may need to determine your ailment or severity of your illness. It is very important that you follow up as instructed or that you return to the Emergency Department should you have concerns or if your condition changes or worsens in any way. You were seen today with low back pain. X-ray shows a L1 and L3 compression fractures. Will set you up for an outpatient MRI and follow-up with orthopedic spine surgery. Use tramadol as needed for pain. Coding Level of Care Code ED Equipment Service Lead for Jose Rojas
--- NOTE | 2023-07-23 08:17 | XR_ITS ---
WS: [id number] XR lumbar spine 2-3V* [id number] REASON FOR EXAM: pain - new sudden onset FINDINGS: Moderately decreased bone density. 5 lumbar vertebrae. Moderate rotatory levoscoliosis of the lumbar spine. Compression deformities of L1 and L3. The deformity of L3 is unchanged compared to a CT scan of the a bdomen and pelvis 06/01/2022. The L1 vertebral body is undergone further depression of the superior e ndplate compared to the previous CT scan. Moderate narrowing of the intervertebral disc spaces at L4-L5 and L5-S1. No significant listhesis. Moderate degenerative changes in the facets at L4-L5 and L5-S1. IMPRESSION: Significant degenerative spondylosis. The current compression deformity of L1 is of indeterminate age. Cannot exclude acute or subacute com pression fracture.
--- NOTE | 2023-07-23 08:17 | XR_ITS ---
WS: [id number] XR thoracic spine 3V* [id number] REASON FOR EXAM: pain FINDINGS: Moderate dextroscoliosis of the thoracic spine. No significant kyphosis. Very evaluation vertebrae on lateral view. It appears there are multiple mild biconcave compression d eformities in the lower thoracic spine of uncertain chronicity. Changes of moderate degenerative spondylosis in the lower thoracic spine. IMPRESSION: Dextroscoliosis. Mild compression deformities in the lower thoracic spine, not well imaged. Most likely chronic.
[2023-07-23] MEDS: HYDROcodone-acetaminophen 5-325 mg Tablet 1 TAB PO (08:38)
--- NOTE | 2023-07-25 20:50 | DCPLANNER ---
Message sent to Ortho For a follow up on compression fx lumbar
== END 2023-07-23 09:23 | disposition home or self-care (01) ==
PROVIDERS: Emergency Provider Family Medicine; PCP Family Medicine
DX: M48.56XA Collapsed vertebra, not elsewhere classified, lumbar region, initial encounter for fracture (principal); Z79.82 Long term (current) use of aspirin; Z87.891 Personal history of nicotine dependence; Z85.51 Personal history of malignant neoplasm of bladder; J44.9 Chronic obstructive pulmonary disease, unspecified; I25.2 Old myocardial infarction; I11.0 Hypertensive heart disease with heart failure; I50.9 Heart failure, unspecified
CPT/HCPCS: 72072; 72100; 99283

== ENCOUNTER 2023-09-25 12:52 | Outpatient (CLI) | payer MEDICARE, MEDICAID, SELFPAY ==
--- NOTE | 2023-09-25 12:57 | XR_ITS ---
WS: [id number] DEXA (DUAL ENERGY X-RAY ABSORPTIOMETRY) Bone mineral density was performed using a MetaLINCS machine. 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 Lumbar spine BMD (L1-L4): 1.382 T score: 1.2 Z score: 1.3 Total hip BMD: Left: 0.864 g/cm2. T score: -1.6 Z score: -0.6 Right: 0.946 g/cm2. T score: -1.1 Z score: 0.0 10 year probability of a major osteoporotic fracture is 6.4%. Levoscoliosis lumbar spine. IMPRESSION: OSTEOPENIA. Patient is at increased risk for fracture.
== END 2023-09-25 12:53 | disposition home or self-care (01) ==
LOC: RAD 12:52
PROVIDERS: PCP Family Medicine; Visit Provider Neurological Surgery
DX: M81.0 Age-related osteoporosis without current pathological fracture (principal); M85.80 Other specified disorders of bone density and structure, unspecified site
CPT/HCPCS: 77080

== ENCOUNTER 2023-10-02 08:40 | Outpatient (CLI) | payer MEDICARE, MEDICAID, SELFPAY ==
--- NOTE | 2023-10-02 08:45 | MR_ITS ---
WS: [id number] MRI LUMBAR SPINE NONCONTRAST HISTORY: WEDGE COMPRESSION FX OF UNSPECIFIED LUMBAR VERTEBRA COMPARISON: None available. TECHNIQUE: Sagittal and axial multisequence imaging is submitted. Straightening of the normal cervical lordosis. Disc space narrowing osteophytic ridging at C4-5 and C 5-6 encroaching upon the ventral cervical cord. Mild LEFT curvature lumbar spine with asymmetric disc space narrowing. Disc spaces are all narrowed a nd desiccated. Schmorl's node defect in the superior endplate of L3. Very slight chronic anterior wed ging of L1. New abnormal signal in the T12 vertebral body. Low signal on the T1 sequences and increased signal on the T2 sequences throughout the entire vertebral body. Mild extension into the LEFT RIGHT posterior element. There is a small amount of prevertebral edema and fluid. Conus terminates normally at L1-2 disc level. T11-12: Mild annular disc bulging. No retropulsion of the T12 vertebrae which is fractured. Mild bila teral foraminal stenosis. Mild central stenosis. L1-L2: Diffuse osteophytic ridging with mild disc bulging and facet arthritis. Mild central, bilatera l subarticular recess and foraminal stenosis. L2-L3: Diffuse annular disc bulging with osteophytic ridging. Ligamentum flavum and facet arthritis. Moderate central, bilateral subarticular recess and mild foraminal stenosis. There is most significan t encroachment is upon the RIGHT traversing L3 nerve root. L3-L4: Mild annular disc bulging with ligamentum flavum and facet arthritis and osteophytic ridging. RIGHT foraminal broad-based disc protrusion. Moderate to severe central stenosis with bilateral subar ticular recess stenosis and mild foraminal stenosis. Most significant encroachment upon the traversin g RIGHT L4 nerve root. L4-L5: Mild annular disc bulging and osteophytic ridging with facet and ligamentum flavum hypertrophy . No significant central stenosis. Mild subarticular recess and foraminal encroachment. L5-S1: Mild disc bulging and facet arthritis. Osteophytic ridging around the vertebral bodies. Mild c entral, subarticular recess and foraminal stenosis. RIGHT renal cyst measures 3.2 x 3.4 cm. IMPRESSION: 1. Acute marrow edema throughout the T12 vertebral body. With acute onset of pain and no history of malignancy this is likely an acute mild compression fracture. There is a small amount of prevertebral edema. If there is any concern for metastatic bone disease or osteomyelitis consider follow-up MRI l umbar spine with IV contrast. 2. Advanced multilevel degenerative changes throughout the lumbar spine. 3. L1-2: Mild central, bilateral subarticular recess and foraminal stenosis. 4. L2-3: Moderate central, bilateral subarticular recess and mild foraminal stenosis. Encroachment u farida the RIGHT traversing L3 nerve root. 5. L3-4: Moderate to severe central stenosis with bilateral subarticular recess and mild foraminal s tenosis. Broad-based disc bulging with significant contact on the traversing RIGHT L4 nerve root. 6. L4-5: Mild subarticular recess and foraminal stenosis. 7. L5-S1: Mild central, subarticular recess and foraminal stenosis.
== END 2023-10-02 08:41 | disposition home or self-care (01) ==
PROVIDERS: PCP Family Medicine; Visit Provider Neurological Surgery
DX: S32.000A Wedge compression fracture of unspecified lumbar vertebra, initial encounter for closed fracture (principal); M48.061 Spinal stenosis, lumbar region without neurogenic claudication
CPT/HCPCS: 72148

== ENCOUNTER → 2023-10-09 15:20 | Outpatient (BNVA) | payer MEDICARE, MEDICAID, SELFPAY | PROVIDERS: PCP Family Medicine; Visit Provider Podiatrist Foot & Ankle Surgery | DX: L60.3 Nail dystrophy (principal); I73.9 Peripheral vascular disease, unspecified; L84 Corns and callosities | CPT/HCPCS: 11055; 11721 ==

== ENCOUNTER 2023-11-16 13:12 | Inpatient (IN) | payer MEDICARE, MEDICAID, SELFPAY ==
[2023-11-16] VITALS (36 sets, daily range): BP systolic 85–178; BP diastolic 40–104; PULSE 86–136; RESP 13–34; TEMP 37.3–39; O2SAT 86–98; BMI 36.1
--- NOTE | 2023-11-16 13:19 | ECG_ITS ---
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 Measurements Intervals [place] Rate: 112 P: 47 NH: 178 QRS: 183 QRSD: 104 T: 40 QT: 319 QTc: 437 Interpretive Statements SINUS TACHYCARDIA with significant baseline artifact INDETERMINATE AXIS PATTERN CONSISTENT WITH PULMONARY DISEASE ST DEVIATION AND MODERATE T-WAVE ABNORMALITY, CONSIDER ANTEROLATERAL ISCHEMIA [-0.1+ mV T-WAVE IN V3-V6] Compared to ECG 05/22/2022 10:22:57 Incomplete right bundle-branch block no longer present T-wave abnormality still present Possible ischemia still present Electronically Signed On 11-17-2023 11:34:19 CDT by Ron Nguyen M.D. [id number]
[2023-11-16 13:22] LABS: Glucose Point of Care 156 mg/dL (70-110)
--- NOTE | 2023-11-16 13:22 | XRR_ITS ---
PROCEDURE INFORMATION: Exam: XR Chest Exam date and time: 11/16/2023 2:29 PM Age: 88 years old Clinical indication: Cough and dyspnea; Additional info: Dyspnea/cough TECHNIQUE: Imaging protocol: Radiologic exam of the chest. Views: 1 view. COMPARISON: CR XR chest 1V portable [id number] 05/22/2022 5:05 PM FINDINGS: Lungs: Cardiac silhouette size, and vascularity are somewhat accentuated, likely related to poor inspiration/expansion however clinical correlation for mild CHF should be obtained. Upper lungs are clear. Lung bases are suboptimally assessed. Again seen is elevated right hemidiaphragm with ill-defined bibasilar patchy opacities suggesting dependent changes/atelectasis versus superimposed pneumonia, with some improvement on the left and some worsening on the right. Continued follow-up should be obtained. Pleural spaces: No pleural effusion. No pneumothorax. Heart/Mediastinum: As above. Bones/joints: No acute osseous findings. Other findings: Single view was submitted. XR/XR chest 1V portable [id number] IMPRESSION: 1. Accentuated cardiac silhouette size and vascularity. See discussion above. 2. Bibasilar opacities as above.
--- NOTE | 2023-11-16 13:23 | ED_ITS ---
HPI - Weakness 2 General: Chief complaint: Weakness Stated complaint: RESP. FAILURE Time Seen by Provider: 11/16/23 13:21 Source: patient Mode of arrival: ambulatory History of Present Illness: 88-year-old male brought in by EMS from the [facility]. Patient is a Do Not Recussitate. He was brought in respiratory distress. EMS stated when they arrived he was soiled with diarrhea. He lives in a [facility] where they have had a gastrointestinal flu affecting multiple residents. They reported he was in respiratory distress with significant hypoxia did improve with increased oxygen supplementation. He was found to have a fever of 102.2. Patient is tachycardic and tachypneic. On arrival his sat is 98% on 15 L by nonrebreather he does respond to some verbal questions difficult to get specific history from. He has a history of bladder cancer. Prior to his arrival we called the [facility] that he was sent from and confirmed his Do Not Recussitate status. 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 He elected fulguration in the clinic without formal biopsy given age and other medical problems this was felt to be a very reasonable compromise. Lichen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 Gross hematuria Callus of foot Acute respiratory failure with hypoxia Hypocalcemia Acute exacerbation of chronic obstructive airways disease Pulmonary hypertension Renal insufficiency Lung nodule Acute encephalopathy NSTEMI (non-ST elevated myocardial infarction) CHF (congestive heart failure) Septic shock Pneumonia Postop check Dyspnea on exertion NSVT (nonsustained ventricular tachycardia) Gallbladder polyp Syncope Lingular pneumonia Rhinovirus Recurrent syncope Oral thrush Altered mental status COPD (chronic obstructive pulmonary disease) Nocturnal hypoxia REX (obstructive sleep apnea) Bilateral leg edema Post viral syndrome Hospital discharge follow-up Adrenal insufficiency Hypothyroidism Elevated brain natriuretic peptide (BNP) level Elevated d-dimer CHERI (acute kidney injury) Elevated lactic acid level Hypertension Acute respiratory failure with hypoxia Sepsis Hypoxia COVID-19 COVID-19 Thyroid disease Peripheral arterial disease Hammertoes of both feet Onychodystrophy PVD (peripheral vascular disease) Surgical History H/O brain surgery History of gastric surgery History of prostate surgery Family History Denies family history of Diabetes CAD (coronary artery disease) Clotting disorder Dementia Hyperlipidemia Psychiatric illness Chronic kidney disease (CKD) Suicide Anesthesia complication Bleeding disorder Family history of premature coronary artery disease Lung disease Cancer Hypertension Stroke Social History Smoking and tobacco/nicotine status: former use of tobacco/nicotine Quit status (tobacco/nicotine): has quit using Year quit tobacco: 1999 [id number] cig/pipe Second hand smoke exposure: No Alcohol intake: never Substance/Drug Use: never Lives independently: Yes Household members: spouse Housing: House Marital status: service: No Current occupational status: retired Pets and animals: No Do you think of yourself as: Straight/Heterosexual Current gender identity: Male Physical Exam 2 HENMT: COMMON NORMALS: normocephalic, atraumatic and hearing grossly normal bilaterally HEAD & SCALP: normocephalic and atraumatic Resp: AUSCULTATION: rhonchi and diminished lung sounds Cardio: COMMON NORMALS: regular rhythm and No murmurs present (Cardio) R ATE: tachycardic RHYTHM: regular rhythm GI: COMMON NORMALS: Soft to palpation and No hepatosplenomegaly present A USCULTATION: Yes normoactive bowel sounds PALPATION: Yes Soft to palpation, No Tenderness to palpation present (GI), No Guarding due to palpation present (GI) and Yes No hepatosplenomegaly present Extremity: COMMON NORMALS: normal to inspection, capillary refill normal, no clubbing, cyanosis or edema, no calf tenderness and no pedal edema Skin: COMMON NORMALS: no rashes or lesions noted GENERAL SKIN EXAM: no rashes or lesions noted Course 2 Vital Signs: Vital signs: Vital Signs Temperature 102.2 F H 11/16/23 13:15 Pulse Rate 101 H 11/16/23 16:30 Respiratory Rate 24 H 11/16/23 16:30 Blood Pressure 85/60 11/16/23 16:30 Pulse Oximetry 90 11/16/23 13:50 Oxygen Delivery Me thod Nasal Cannula 11/16/23 16:30 Oxygen Flow Rate 5 11/16/23 16:30 MDM - Weakness Medical Decision Making Suspect aspiration pneumonia. Has been started on vancomycin and Zosyn. CTA did not show any acute PE. Discussed with hospitalist orders written. Have discussed with the family they do not want to have the patient intubated they are willing to have him be on pressors if needed. However his blood pressure responded well to the fluid bolus. Patient was given a fluid bolus based off ideal weight to prevent fluid overload. Medical Records I reviewed the patient's medical records. Lab Data I reviewed the patient's lab results. 11/16/23 14:18 11/16/23 14:18 Radiology Impressions Chest X-Ray 11/16/23 13:22 IMPRESSION: 1. Accentuated cardiac silhouette size and vascularity. See discussion above. 2. Bibasilar opacities as above. Chest/Abdomen/Pelvis CT 11/16/23 15:04 IMPRESSION: 1. No acute PE with limitations described above. Enlarged pulmonary artery suggesting possible pulmonary hypertension. 2. Right basilar patchy opacity suggesting compressive atelectasis versus pneumonia. Follow-up should be obtained. 3. Coronary calcification and elevated right hemidiaphragm. IMPRESSION: 1. Colonic diverticulosis. No acute bowel findings otherwise. 2. Lobulated hepatic contour. See discussion above. 3. Other nonacute findings as above. COMMENTS: Consistent with the [employer]'s Incidental Findings Committee white paper (J Am Aida Radiol 2018): Any incidental renal lesion less than 1 cm or classified as too small to characterize, or any incidental cystic renal lesion characterized as simple-appearing, is likely benign. No follow-up imaging is recommended for these lesions per consensus recommendations based on imaging criteria. Laboratory Results WBC 6.20 10^3/uL (3.29-11.43) 11/16/23 14:18 RBC 3.96 10^6/uL (3.85-5.65) 11/16/23 14:18 Hgb 12.70 g/dL (11.27-16.99) 11/16/23 14:18 Hct 41.4 % (37-53) 11/16/23 14:18 MCV 104.5 fl (82-101) H 11/16/23 14:18 MCH 32.1 pg (27-33) 11/16/23 14:18 MCHC 30.7 g/dL (30-55) 11/16/23 14:18 RDW 14.2 % (12.1-15.1) 11/16/23 14:18 Plt Count 140 10^3/cmm (157-399) L 11/16/23 14:18 MPV 10.4 fL (7.4-10.4) 11/16/23 14:18 Neut % (Auto) 65.0 % 11/16/23 14:18 Lymph % (Auto) 23.9 % 11/16/23 14:18 [place] % (Auto) 10.3 % 11/16/23 14:18 Eos % (Auto) 0.0 % 11/16/23 14:18 Baso % (Auto) 0.2 % 11/16/23 14:18 Neut # (Auto) 4.03 10^3/uL (1.8-7.7) 11/16/23 14:18 Lymph # (Auto) 1.5 10^3/uL (0.8-4.8) 11/16/23 14:18 [place] # (Auto) 0.6 10^3/uL (0.2-0.9) 11/16/23 14:18 Eos # (Auto) 0.0 10^3/uL (0.0-0.8) 11/16/23 14:18 Baso # (Auto) 0.0 10^3/uL (0.0-0.1) 11/16/23 14:18 Nucleated RBC % (auto) 0 % 11/16/23 14:18 Nucleated RBCs # 0.0 /100WBC 11/16/23 14:18 Specimen Type Arterial 11/16/23 13:22 Sample Site Radial, right 11/16/23 13:22 ABG pH 7.37 (7.35-7.45) 11/16/23 13:22 ABG pCO2 41.7 mmHg (35-45) 11/16/23 13:22 ABG pO2 89.5 mmHg (80.0-100.0) 11/16/23 13:22 ABG HCO3 23.8 mmol/L (22-26) 11/16/23 13:22 ABG O2 Saturation 98.2 11/16/23 13:22 ABG Base Excess -1.6 mmol/L (-2.0-2.0) 11/16/23 13:22 Neeraj Test Pos 11/16/23 13:22 A-a O2 Gradient 1.0 mmHg (5-10) L 11/16/23 13:22 Hematocrit 39.8 % (42-52) L 11/16/23 13:22 Hgb O2 Saturation 95.9 % (95-100) 11/16/23 13:22 Carboxyhemoglobin 1.6 %THgb (0.4-20.1) 11/16/23 13:22 Methemoglobin 0.7 % (0.4-1.5) 11/16/23 13:22 Total Hemoglobin 13.0 g/dL (14-18) L 11/16/23 13:22 Sodium 145.0 mmol/L (131-143) H 11/16/23 13:22 Potassium 2.9 mmol/L (3.5-5.0) L 11/16/23 13:22 Glucose 162.0 mg/dL (70-115) H 11/16/23 13:22 Ionized Calcium 1.1 mmol/L (1.1-1.4) 11/16/23 13:22 O2 Delivery Device Nrb 11/16/23 13:22 O2 Liters/Min 15.0 % 11/16/23 13:22 Hardware Engineer ID Walci 11/16/23 13:22 Sodium 145 mmol/L (136-145) 11/16/23 14:18 Potassium 3.4 mmol/L (3.5-5.1) L 11/16/23 14:18 Chloride 106 mmol/L (98-107) 11/16/23 14:18 Carbon Dioxide 24 mmol/L (22-29) 11/16/23 14:18 Anion Gap 18.4 (5-19) 11/16/23 14:18 BUN 19 mg/dL (8-23) 11/16/23 14:18 Creatinine 1.0 mg/dL (0.7-1.2) 11/16/23 14:18 GFR Calculation Not Reportable 11/16/23 14:18 Glucose 151 mg/dL (65-115) H 11/16/23 14:18 POC Glucose 156 mg/dL (70-110) H 11/16/23 13:18 Calculated Osmolality 305 mOsm/kg (285-295) H 11/16/23 14:18 Lactic Acid 5.7 mmol/L (0.5-2.2) H* 11/16/23 14:18 Calcium 7.3 mg/dL (8.5-10.5) L 11/16/23 14:18 Total Bilirubin 0.5 mg/dL (0.15-1.2) 11/16/23 14:18 AST 45 U/L (0-40) H 11/16/23 14:18 ALT 32 U/L (0-41) 11/16/23 14:18 Alkaline Phosphatase 52 U/L (40-130) 11/16/23 14:18 Creatine Kinase 76 U/L (39-308) 11/16/23 14:18 Troponin T Baseline 36 ng/L (0-15) H 11/16/23 14:18 Troponin T 120 Minute 39.34 ng/L (0-15) H 11/16/23 16:27 Delta Troponin T 3.34 ABS# (0-10) 11/16/23 16:27 Total Protein 6.1 g/dL (6.6-8.7) L 11/16/23 14:18 Albumin 3.6 g/dL (3.5-5.2) 11/16/23 14:18 Globulin 2.5 g/dL (1.3-4.6) 11/16/23 14:18 Lipase 9 U/L (13-60) L 11/16/23 14:18 Urine Color Yellow (Yellow) 11/16/23 13:50 Urine Appearance Clear (CLEAR) 11/16/23 13:50 Urine pH 5 (5-7) 11/16/23 13:50 Ur Specific [place] 1.020 (1.005-1.030) 11/16/23 13:50 Urine Protein Neg (Negative) 11/16/23 13:50 Urine Glucose (UA) Norm (Normal) 11/16/23 13:50 Urine Ketones Negative (Negative) 11/16/23 13:50 Urine Blood Neg (Negative) 11/16/23 13:50 Urine Nitrate Negative (Negative) 11/16/23 13:50 Urine Bilirubin Neg (Negative) 11/16/23 13:50 Urine Urobilinogen Norm mg/dL (Negative) 11/16/23 13:50 Ur Leukocyte Esterase Negative (Negative) 11/16/23 13:50 Adenovirus (PCR) Not detected (NOT DETECT) 11/16/23 13:50 C. pneumoniae DNA (PCR) Not detected (NOT DETECT) 11/16/23 13:50 Coronavirus 229E (PCR) Not detected (NOT DETECT) 11/16/23 13:50 Human Metapneumovir PCR Not detected (NOT DETECT) 11/16/23 13:50 Influenza A (H1) PCR Not detected (NOT DETECT) 11/16/23 13:50 Influ A (H1/09) PCR Not detected (NOT DETECT) 11/16/23 13:50 Influenza A (H3) PCR Not detected (NOT DETECT) 11/16/23 13:50 Influenza Type A (PCR) Not detected (NOT DETECT) 11/16/23 13:50 Influenza Type B (PCR) Not detected (NOT DETECT) 11/16/23 13:50 M. pneumoniae (PCR) Not detected (NOT DETECT) 11/16/23 13:50 Parainfluenza 1 (PCR) Not detected (NOT DETECT) 11/16/23 13:50 Parainfluenza 2 (PCR) Not detected (NOT DETECT) 11/16/23 13:50 Parainfluenza 3 (PCR) Not detected (NOT DETECT) 11/16/23 13:50 Parainfluenza 4 (PCR) Not detected (NOT DETECT) 11/16/23 13:50 RSV Type A (PCR) Not detected (NOT DETECT) 11/16/23 13:50 RSV Type B (PCR) Not detected (NOT DETECT) 11/16/23 13:50 Entero/Rhino (PCR) Not detected (NOT DETECT) 11/16/23 13:50 SARS-CoV-2 (PCR) Not detected (NOT DETECT) 11/16/23 13:50 All radiology interpretation(s) finalized by discharge Discharge Plan Discharge Patient Disposition: Admitted As Inpatient Clinical Impression: Aspiration pneumonia, Bladder cancer COPD (chronic obstructive pulmonary disease) Qualifiers: COPD type: unspecified COPD Qualified Code(s): J44.9 - Chronic obstructive pulmonary disease, unspecified Condition: Stable Prescriptions: No Action amlodipine 10 mg tablet 10 mg PO DAILY hydrocortisone 20 mg tablet See Rx Instructions PO DAILY Rx Instructions: 1 tablet in the morning and 0.5tablet in the evening lidocaine HCl 2 % jelly 1 applic intra-urethral ONCE Qty: 1 0RF aspirin 81 mg Tablet,Chewable 81 mg PO DAILY@12 Hold Instructions: Resume on 01/14/21. levothyroxine 112 mcg Tablet 112 mcg PO DAILY@07 multivitamin Tablet 1 tab PO DAILY@12 levetiracetam 500 mg tablet 500 mg PO DAILY losartan 50 mg Tablet 50 mg PO DAILY Qty: 30 0RF furosemide [Lasix] 40 mg tablet 40 mg PO DAILY Qty: 30 0RF potassium chloride 10 mEq capsule, extended release 10 meq PO DAILY Qty: 30 0RF tramadol 50 mg tablet 50 mg PO Q8H PRN (Reason: pain) Qty: 10 0RF tramadol 50 mg tablet 50 mg PO Q8H PRN (Reason: pain) Qty: 20 0RF Referrals: Trupti Grace MD [Primary Care Provider] - Coding Level of Care Code ED Endodontic Assistant for Jose Rojas
[2023-11-16 13:25] LABS: ABG PCO2 41.7 mmHg (35-45); ABG PH Result 7.37 (7.35-7.45); Arterial Blood Gas Hematocrit 39.8 % (42-52); Base Excess ABG -1.6 mmol/L (-2.0-2.0); Blood Gas Allen Test Pos; Blood Gas Operator Identificat WALCI; Blood Gas Sample Site Radial, right; Blood Gas Sample Type Arterial; Carboxyhemoglobin 1.6 %THgb (0.4-20.1); HCO3 ABG 23.8 mmol/L (22-26); HGB O2 Sat 95.9 % (95-100); Ionized Calcium Level - ABG 1.1 mmol/L (1.1-1.4); Methemoglobin 0.7 % (0.4-1.5); Oxygen Device NRB; Oxygen Saturation ABG 98.2; PO2 ABG 89.5 mmHg (80.0-100.0); Potassium Level - ABG 2.9 mmol/L (3.5-5.0)
[2023-11-16] MEDS: sodium chloride 0.9% 1,000 ML 999 ML IV (13:35)
[2023-11-16] MEDS: sodium chloride 0.9% 2,328 ML 2328 ML IV (13:36)
[2023-11-16] MEDS: ondansetron 2 mg/ML SDV 2 mL 4 MG IVP (13:38)
[2023-11-16 13:53] LABS: Add Urine Microscopic? NO; Charge for UA Resulting for Rev
[2023-11-16 13:55] LABS: Urine Appearance Clear (CLEAR); Urine Color Yellow (Yellow); pH Urine 5 (5-7)
[2023-11-16 13:56] LABS: Bilirubin Urine Neg (Negative); Blood Urine Neg (Negative); Glucose Urine UA Norm (Normal); Ketones Urine Negative (Negative); Leukocyte Esterase Urine Negative (Negative); Nitrate Urine Negative (Negative); Protein Urine Neg (Negative); Urobilinogen Urine Norm (Negative)
[2023-11-16 14:32] LABS: Basophils % 0.2 %; Hematocrit 41.4 % (37-53); Lymphocytes # 1.5 10^3/uL (0.8-4.8); Lymphocytes % 23.9 %; Mean Corpuscular HGB Conc 30.7 g/dL (30-55); Mean Corpuscular Hemoglobin 32.1 pg (27-33); Mean Corpuscular Volume 104.5 fl (82-101); Mean Platelet Volume 10.4 fL (7.4-10.4); Monocytes # 0.6 10^3/uL (0.2-0.9); Monocytes % 10.3 %; Neutrophils # 4.03 10^3/uL (1.8-7.7); Nucleated Red Blood Cells % 0 %; Platelet Count 140 10^3/cmm (157-399); Red Blood Count 3.96 10^6/uL (3.85-5.65); Red Cell Distribution Width 14.2 % (12.1-15.1)
[2023-11-16 14:45] LABS: Troponin(5th) Baseline 36 ng/L (0-15)
[2023-11-16 14:48] LABS: Alanine Aminotransferase 32 U/L (0-41); Albumin Level 3.6 g/dL (3.5-5.2); Alkaline Phosphatase 52 U/L (40-130); Anion Gap 18.4 (5-19); Aspartate Amino Transferase 45 U/L (0-40); Blood Urea Nitrogen 19 mg/dL (8-23); Calcium 7.3 mg/dL (8.5-10.5); Carbon Dioxide 24 mmol/L (22-29); Chloride 106 mmol/L (98-107); Creatine Phosphokinase 76 U/L (39-308); Creatinine Clr Calc Pharmacy 69.2689; Globulin 2.5 g/dL (1.3-4.6); Glucose 151 mg/dL (65-115); Lipase 9 U/L (13-60); Osmolality Calculated 305 mOsm/kg (285-295); Potassium 3.4 mmol/L (3.5-5.1); Sodium 145 mmol/L (136-145); Total Bilirubin 0.5 mg/dL (0.15-1.2); Total Protein 6.1 g/dL (6.6-8.7)
[2023-11-16 14:52] LABS: Lactic Sepsis W/Reflex 5.7 mmol/L (0.5-2.2)
--- NOTE | 2023-11-16 15:04 | CTR_ITS ---
PROCEDURE INFORMATION: Exam: CTA Chest With Contrast Exam date and time: 11/16/2023 3:58 PM Age: 88 years old Clinical indication: Vomiting and other: Diarrhea; Shortness of breath; Additional info: Tachycardia/hypoxia - vomitting /diarrhea TECHNIQUE: Imaging protocol: Computed tomographic angiography of the chest with contrast. Exam focused on the arteries. 3D rendering (Not supervised by radiologist): MIP and/or 3D reconstructed images were created by the technologist. Radiation optimization: All CT scans at this facility use at least one of these dose optimization techniques: automated exposure control; mA and/or kV adjustment per patient size (includes targeted exams where dose is matched to clinical indication); or iterative reconstruction. Contrast material: OMNI 350; Contrast volume: 100 ml; Contrast route: INTRAVENOUS (IV); COMPARISON: CT angio chest PE protcl [id number] 02/20/2021 9:47 AM RADIATION DOSE METRICS: Total DLP (mGy-cm): 1951.98 FINDINGS: Pulmonary arteries: There is no pulmonary embolism in the central-proximal lobar branches. Assessment of the peripheral segmental/subsegmental small branches is very limited due to artifacts and suboptimal bolus. [id number] dilatation of main pulmonary artery at 3.9 cm, unchanged. Aorta: No aortic aneurysm. No aortic dissection. Lungs: Patchy opacities in the right base could be related to compressive atelectasis versus developing pneumonia and follow-up should be obtained. Remaining lungs are otherwise clear of consolidation or ground-glass opacity. Assessment is limited due to artifacts. No large endobronchial lesions or central airway obstruction. Pleural spaces: Unremarkable. No pneumothorax. No pleural effusion. Heart: Normal heart size with coronary calcification. Lymph nodes: Unremarkable. No enlarged lymph nodes. Diaphragm: Elevated right hemidiaphragm and correlation for diaphragmatic paralysis should be considered. Bones/joints: No acute fracture. Soft tissues: Unremarkable. Other findings: Several images are somewhat degraded by artifacts from the patient's arm(s.) PROCEDURE INFORMATION: Exam: CT Abdomen And Pelvis With Contrast Exam date and time: 11/16/2023 3:58 PM Age: 88 years old Clinical indication: Vomiting and other: Diarrhea; Shortness of breath; Additional info: Tachycardia/hypoxia - vomitting /diarrhea TECHNIQUE: Imaging protocol: Computed tomography of the abdomen and pelvis with contrast. Radiation optimization: All CT scans at this facility use at least one of these dose optimization techniques: automated exposure control; mA and/or kV adjustment per patient size (includes targeted exams where dose is matched to clinical indication); or iterative reconstruction. Contrast material: OMNI 350; Contrast volume: 100 ml; Contrast route: INTRAVENOUS (IV); COMPARISON: CT abdomen pelvis wo con [id number] 05/22/2022 11:09 AM RADIATION DOSE METRICS: Total DLP (mGy-cm): 1951.98 FINDINGS: Liver: Lobulated hepatic contour which may represent cirrhosis or other diffuse hepatocellular disease. No suspicious lesion during portal venous phase. Normal liver size without cirrhosis or discrete mass. Gallbladder and bile ducts: Cholecystectomy clips. Pancreas: Fatty replaced pancreas with no obvious ductal dilatation or discrete mass. Spleen: Normal. No splenomegaly. Adrenal glands: Normal. No mass. Kidneys and ureters: No hydronephrosis or obstructing calculi. Multiple simple renal cysts, the largest measuring 2.9 cm on the right. Stomach and bowel: Evidence of small bowel surgery in the anterior right lower quadrant with no obstruction or regional bowel wall abnormality. Colonic diverticulosis and low stool burden. Appendix: No evidence of appendicitis. Intraperitoneal space: Significant motion artifacts in the upper abdomen. Vasculature: No abdominal aortic aneurysm. Lymph nodes: No enlarged lymph nodes. Urinary bladder: Nondistended urinary bladder with Hawkins balloon in place. Reproductive: Unremarkable as visualized. Bones/joints: Multilevel vertebral disc degeneration and endplate osteophytes. Worsening of compression deformity and sclerosis of T12 with no obvious acute fracture subluxation. Otherwise multilevel mild endplate deformities and osteophytes, unchanged. No acute osseous findings otherwise. Soft tissues: No acute findings. CT/CT angio chest w abd pel w con IMPRESSION: 1. No acute PE with limitations described above. Enlarged pulmonary artery suggesting possible pulmonary hypertension. 2. Right basilar patchy opacity suggesting compressive atelectasis versus pneumonia. Follow-up should be obtained. 3. Coronary calcification and elevated right hemidiaphragm. IMPRESSION: 1. Colonic diverticulosis. No acute bowel findings otherwise. 2. Lobulated hepatic contour. See discussion above. 3. Other nonacute findings as above. COMMENTS: Consistent with the [employer]'s Incidental Findings Committee white paper (J Am Aida Radiol 2018): Any incidental renal lesion less than 1 cm or classified as too small to characterize, or any incidental cystic renal lesion characterized as simple-appearing, is likely benign. No follow-up imaging is recommended for these lesions per consensus recommendations based on imaging criteria.
[2023-11-16] MEDS: piperacillin-tazobactam 3.375 GM in sodium chloride 0.9% (plus) 50 ML IV ×2 (15:29→23:07)
[2023-11-16] MEDS: vancomycin 1,000 MG in sodium chloride 0.9% 250 ML 250 MG IV (15:31)
[2023-11-16 15:38] LABS: Adenovirus Not Detected (NOT DETECT); Chlamydia Pneumoniae Not Detected (NOT DETECT); Coronavirus 229E,HKU1,NL63,OC4 Not Detected (NOT DETECT); Human Metapneumovirus Not Detected (NOT DETECT); Human Rhinovirus/Enterovirus Not Detected (NOT DETECT); Influenza A Not Detected (NOT DETECT); Influenza A H1 Not Detected (NOT DETECT); Influenza A H1-2009 Not Detected (NOT DETECT); Influenza A H3 Not Detected (NOT DETECT); Influenza B Not Detected (NOT DETECT); Mycoplasma Pneumoniae Not Detected (NOT DETECT); Parainfluenza Virus Type 1 Not Detected (NOT DETECT); Parainfluenza Virus Type 2 Not Detected (NOT DETECT); Parainfluenza Virus Type 3 Not Detected (NOT DETECT); Parainfluenza Virus Type 4 Not Detected (NOT DETECT); Respiratory Syncytial Virus A Not Detected (NOT DETECT); Respiratory Syncytial Virus B Not Detected (NOT DETECT); SARS-COV-2 Not Detected (NOT DETECT)
--- NOTE | 2023-11-16 15:41 | ECG_ITS ---
[facility] Test Date: 2023-11-16 Pat Name: Rashid Bolivar Department: Room: Gender: Male Echo Vascular Tech: : [id number] Requested By: Willis Sabillon Order Number: [id number] Reading MD: Ron Nguyen M.D. Measurements Intervals [place] Rate: 84 P: 44 TX: 165 QRS: 163 QRSD: 116 T: 169 QT: 366 QTc: 433 Interpretive Statements SINUS RHYTHM WITH OCCASIONAL SUPRAVENTRICULAR PREMATURE COMPLEXES PATTERN CONSISTENT WITH PULMONARY DISEASE Significant baseline artifact POSSIBLE RIGHT VENTRICULAR HYPERTROPHY [SOME/ALL OF: PROMINENT R IN V1, LATE TRANSITION, RAD, DARRON, SSS] MODERATE ST DEPRESSION [0.05+ mV ST DEPRESSION] Compared to ECG 11/16/2023 13:19:13 ST (T wave) deviation now present Sinus tachycardia no longer present Electronically Signed On 11-17-2023 11:43:33 CDT by Ron Nguyen M.D. [email or web address]
[2023-11-16] MEDS: iohexol 350 mg/mL 500 mL Btl (per mL) IV (16:01)
[2023-11-16 16:10] LABS: Reflex Lactate Order REFLEX LACTIC ORDERD
--- NOTE | 2023-11-16 16:48 | PC.NURSE ---
UPON ENTERING PT ROOM, PT LEFT IV SITE WAS DETENTION PULLED OUT. UPON FURTHER INSPECTION, PT IV HAD INFILTRATED. PT IV REMOVED, PRESSURE DRESSING APPLIED AND WARM COMPRESS PLACED ON IV SITE.
[2023-11-16 16:54] LABS: Troponin 5 2HR 39.34 ng/L (0-15); Troponin 5 2HR Delta 3.34 ABS# (0-10)
[2023-11-16 17:09] LABS: Lactic Acid level (Lactate) 4.7 mmol/L (0.5-2.2)
[2023-11-16] MEDS: acetaminophen 1,000 MG/100 ML PIGGYBACK 400 MG IV (17:20)
--- NOTE | 2023-11-16 17:30 | PC.NURSE ---
PT UNABLE TO COOPERATE APPROPRIATELY FOR ACCURATE BLOOD PRESSURES AT THIS TIME.
--- NOTE | 2023-11-16 18:19 | P.HP_ITS ---
Providers/Chief Complaint 2 Admitting Physician: Ethan Casas MD Primary Care Provider: Trupti Grace MD Chief Complaint: RESP. FAILURE History of Present Illness Rashid Bolivar is a 88 year old male with history of chronic hypoxia, resident of assisted living, history of bladder cancer, COPD, presented after getting confused dehydrated, vomiting and diarrhea. Multiple residents at the facility have GI related issues, patient was absolutely fine as per the , he is able to use a walker, eat regular diet, this morning he woke up became extremely fatigued after couple of episode of vomiting and diarrhea. In the ER he has been diagnosed with sepsis related to possible aspiration pneumonia he was given septic bolus antibiotics blood cultures were taken along lactic acid. As per the EMS he was hypoxic, soiled with feces, he was put on supplemental oxygen. Review of Systems 2 Const: Reports: fatigue; Denies: fever(s) Eyes: Denies: change in vision ENMT: Denies: throat pain Card: Denies: chest pain Resp: Reports: dyspnea GI: Denies: abdominal pain Medications/Allergies Home Medications Medication Instructions Recorded Confirmed Last Taken Type aspirin 81 mg chewable tablet 81 mg PO DAILY@06/11/20 10/09/23 05/21/22 History levothyroxine 112 mcg tablet 112 mcg PO DAILY@06/11/20 10/09/23 05/21/22 History multivitamin 1 tab PO DAILY@02/20/21 10/09/23 05/21/22 History levetiracetam 500 mg tablet 500 mg PO DAILY 10/06/21 10/09/23 05/21/22 History furosemide 40 mg tablet (Lasix) 40 mg PO DAILY #30 tabs 10/08/21 10/09/23 05/21/22 Rx losartan 50 mg tablet 50 mg PO DAILY #30 tabs 10/08/21 10/09/23 05/21/22 Rx potassium chloride 10 mEq 10 meq PO DAILY #30 caps 10/08/21 10/09/23 05/21/22 Rx capsule,extended release amlodipine 10 mg tablet 10 mg PO DAILY 12/25/21 10/09/23 05/21/22 History hydrocortisone 20 mg tablet See Rx Instructions PO DAILY 12/25/21 10/09/23 05/21/22 History tramadol 50 mg tablet 50 mg PO Q8H PRN pain #10 tabs 10/21/23 04/24/24 Unknown Rx tramadol 50 mg tablet 50 mg PO Q8H PRN pain #20 tabs 07/23/23 10/09/23 Unknown Rx Allergies Allergy/AdvReac Type Severity Reaction Status Date / Time morphine Allergy Vomitting Verified 10/09/23 15:16 PFSH Acute 2 PFSH: Medical History Chronic respiratory failure with hypoxia Bladder cancer Clinical diagnosis only: Cystoscopy for hematuria April 2022 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 He elected fulguration in the clinic without formal biopsy given age and other medical problems this was felt to be a very reasonable compromise. Lichen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 Gross hematuria Callus of foot Acute respiratory failure with hypoxia Hypocalcemia Acute exacerbation of chronic obstructive airways disease Pulmonary hypertension Renal insufficiency Lung nodule Acute encephalopathy NSTEMI (non-ST elevated myocardial infarction) CHF (congestive heart failure) Septic shock Pneumonia Postop check Dyspnea on exertion NSVT (nonsustained ventricular tachycardia) Gallbladder polyp Syncope Lingular pneumonia Rhinovirus Recurrent syncope Oral thrush Altered mental status COPD (chronic obstructive pulmonary disease) Nocturnal hypoxia REX (obstructive sleep apnea) Bilateral leg edema Post viral syndrome Hospital discharge follow-up Adrenal insufficiency Hypothyroidism Elevated brain natriuretic peptide (BNP) level Elevated d-dimer CHERI (acute kidney injury) Elevated lactic acid level Hypertension Acute respiratory failure with hypoxia Sepsis Hypoxia COVID-19 COVID-19 Thyroid disease Peripheral arterial disease Hammertoes of both feet Onychodystrophy PVD (peripheral vascular disease) Surgical History H/O brain surgery History of gastric surgery History of prostate surgery Family History Denies family history of Diabetes CAD (coronary artery disease) Clotting disorder Dementia Hyperlipidemia Psychiatric illness Chronic kidney disease (CKD) Suicide Anesthesia complication Bleeding disorder Family history of premature coronary artery disease Lung disease Cancer Hypertension Stroke Social History Smoking and tobacco/nicotine status: former use of tobacco/nicotine Quit status (tobacco/nicotine): has quit using Year quit tobacco: 1999 [id number] cig/pipe Second hand smoke exposure: No Alcohol intake: never Substance/Drug Use: never Lives independently: Yes Household members: spouse Housing: House Marital status: service: No Current occupational status: retired Pets and animals: No Do you think of yourself as: Straight/Heterosexual Current gender identity: Male Vitals/I&O/Wt Last Vital Signs Temp 102.2 F H 11/16/23 13:15 Pulse 95 11/16/23 17:30 Resp 24 H 11/16/23 16:30 BP 123/58 11/16/23 17:30 Pulse Ox 92 11/16/23 18:06 O2 Del Method Oxymask 11/16/23 18:06 O2 Flow Rate 12 11/16/23 18:06 11/16/23 11/16/23 11/16/23 06:59 14:59 22:59 Intake Total 3728 / 3728 Balance 3728 / 3728 Weight last 48 hrs Weight 123.377 kg Physical Exam 2 Narrative: Patient is awake and alert Able to follow commands Currently on oxy mask GCS 15 Nonfocal neuroexam Patient is able to answer my question appropriately Family is at the bedside I do not see any focal deficits Clinically patient does not look fluid overloaded except pedal edema S1, S2 Urinary Catheter Management: Hawkins: Cath Placed During This Visit: yes Urinary Catheter Date of Insertion: 11/16/23 Urinary Catheter Time of Insertion: 14:00 Data 11/16/23 14:18 11/16/23 14:18 Micro: Microbiology 11/16/23 13:58 Blood Culture - Preliminary Blood SPECIMEN COLLECTED 11/16/23 14:02 Blood Culture - Preliminary Blood SPECIMEN COLLECTED A&P Assessment and plan (1) Steroid dependence: (2) Septic shock: (3) Hypothyroidism: (4) Bladder cancer: (5) COPD (chronic obstructive pulmonary disease): Qualifiers: COPD type: unspecified COPD Qualified Code(s): J44.9 - Chronic obstructive pulmonary disease, unspecified (6) Aspiration pneumonia: (7) Hypokalemia: Plan Sepsis related to aspiration pneumonia Criteria met with tachypnea tachycardia high lactic acid Patient has received septic bolus along antibiotics in the ER Blood cultures taken Blood pressure stable after IV fluid hydration I will start patient on cefepime and Zosyn Continue gentle fluid hydration overnight Septic shock: Will ask for PICC line and Levophed, will give him stress dose steroids as well Metabolic encephalopathy related to pneumonia and sepsis Acute on chronic hypoxia requiring OxyMask, up to 12 L He may need BiPAP to decrease work of breathing At baseline uses 3 L of ox Patient is DNI/DNI History of underlying COPD , Underlying history of bladder cancer as well Respiratory panel is negative Troponin 29 group home residents are suffering from gastroenteritis Patient was soiled in feces when EMS evaluated him, CT abdomen pelvis unremarkable Patient is from assisted living, uses 3 L oxygen baseline walks with a walker, eats regular diet Attestations 2 Medical Necessity Statement*: More than 2 midnights anticipated Diagnoses Steroid dependence F19.20 Septic shock A41.9; R65.21 Hypothyroidism, unspecified type E03.9 Bladder cancer C67.9 Chronic obstructive pulmonary disease, unspecified COPD type J44.9 COPD type: unspecified COPD Aspiration pneumonia J69.0 Hypokalemia E87.6
[2023-11-16] MEDS: norepinephrine 4 MG/250 ML BAG 30 MG IV (18:58)
[2023-11-16] MEDS: dexamethasone 10 mg/mL INJ IVP (18:58)
--- NOTE | 2023-11-16 19:23 | ECG_ITS ---
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 Measurements Intervals [place] Rate: 110 P: 31 WA: 172 QRS: 186 QRSD: 97 T: 67 QT: 337 QTc: 457 Interpretive Statements SINUS TACHYCARDIA WITH OCCASIONAL SUPRAVENTRICULAR PREMATURE COMPLEXES INDETERMINATE AXIS LOW QRS VOLTAGE IN PRECORDIAL LEADS [QRS DEFLECTION < 1.0 mV IN CHEST LEADS] POSSIBLE ANTERIOR MYOCARDIAL INFARCTION , PROBABLY OLD [30 ms Q WAVE IN V3/V4, OR R < 0.2 mV IN V4] Compared to ECG 11/16/2023 15:41:00 Indeterminate axis now present Low QRS voltage now present Myocardial infarct finding now present Sinus rhythm no longer present ST (T wave) deviation no longer present Electronically Signed On 11-17-2023 11:44:50 CDT by Ron Nguyen M.D. [id number]
[2023-11-16 19:28] LABS: NT Pro B Type Natriuretic Pept 782 pg/mL (0-450)
[2023-11-16] MEDS: ipratropium-albuterol 3 mL Neb INHALATION (20:03)
[2023-11-16] MEDS: sodium chloride 0.9% 1,000 ML 75 ML IV (20:25)
[2023-11-16] MEDS: cefepime 2,000 MG in sodium chloride 0.9% (plus) 50 ML 100 MG IV (21:04)
--- NOTE | 2023-11-16 21:09 | PC.NURSE ---
Addendum entered by Amie Dietrich, RN 11/16/23 21:13: Unable to verify home medications at this time, pt is confused, no family at bedside. Original Note: Arrival to ICU 5: Arrived to ICU @1937 via stretcher w/ 2 RN's at bedside. Continuos cardiac monitoring continued. SpO2 88% on 11L Oxymask, RT on unit. Pt is A&Ox2, able to tell me his name, , and that he is in the hospital, but not what hospital. Sepsis education provided to family as pt is confused.
[2023-11-16 21:14] LABS: Troponin 5 6HR 39.49 ng/L (0-15); Troponin 5 6HR Delta 3.49 ng/L (0-12)
[2023-11-17] VITALS (43 sets, daily range): BP systolic 81–134; BP diastolic 42–79; PULSE 78–107; RESP 13–33; TEMP 37.1–37.4; O2SAT 87–95
[2023-11-17] MEDS: acetaminophen 500 mg Tablet PO (01:56)
[2023-11-17] MEDS: cefepime 2,000 MG in sodium chloride 0.9% (plus) 50 ML 100 MG IV ×3 (04:08→20:34)
[2023-11-17 05:09] LABS: Hematocrit 39.9 % (37-53); Lymphocytes # 0.6 10^3/uL (0.8-4.8); Mean Corpuscular HGB Conc 31.1 g/dL (30-55); Mean Corpuscular Volume 103.1 fl (82-101); Mean Platelet Volume 10.4 fL (7.4-10.4); Monocytes # 0.2 10^3/uL (0.2-0.9); Monocytes % 3.8 %; Neutrophils # 5.26 10^3/uL (1.8-7.7); Neutrophils % 86.5 %; Nucleated Red Blood Cells % 0 %; Platelet Count 139 10^3/cmm (157-399); Red Blood Count 3.87 10^6/uL (3.85-5.65); Red Cell Distribution Width 14.8 % (12.1-15.1); White Blood Count 6.08 10^3/uL (3.29-11.43)
[2023-11-17 05:26] LABS: Anion Gap 15.2 (5-19); Blood Urea Nitrogen 20 mg/dL (8-23); C Reactive Protein 106.8 mg/L (0.0-4.9); Calcium 7.5 mg/dL (8.5-10.5); Carbon Dioxide 24 mmol/L (22-29); Chloride 109 mmol/L (98-107); Creatinine Clr Calc Pharmacy 57.0907; Glucose 250 mg/dL (65-115); Magnesium 1.6 mg/dL (1.7-2.3); Osmolality Calculated 309 mOsm/kg (285-295); Phosphorus 3.1 mg/dL (2.5-4.5); Potassium 4.2 mmol/L (3.5-5.1); Sodium 144 mmol/L (136-145)
[2023-11-17 05:28] LABS: Lactic Sepsis W/Reflex 2.3 mmol/L (0.5-2.2)
[2023-11-17] MEDS: lanolin oint 7 gm 1 APPLIC TOPICAL (05:42)
[2023-11-17] MEDS: lidocaine 5% Patch 1 PATCH TOPICAL (05:46)
[2023-11-17] MEDS: TRAMadol 50 mg Tablet 25 MG PO (06:03)
[2023-11-17] MEDS: levothyroxine 112 mcg Tablet PO (06:04)
[2023-11-17] MEDS: hydrocortisone 100 mg/2 mL SDV IVP (06:09)
[2023-11-17 06:53] LABS: Reflex Lactate Order REFLEX LACTIC ORDERD
[2023-11-17] MEDS: levETIRAcetam 500 mg Tablet PO (08:12)
[2023-11-17] MEDS: piperacillin-tazobactam 3.375 GM in sodium chloride 0.9% (plus) 50 ML IV ×3 (08:13→23:33)
[2023-11-17] MEDS: FUROsemide 40 mg Tablet PO (08:13)
[2023-11-17] MEDS: potassium chloride ER 10 mEq Tablet PO (08:13)
[2023-11-17] MEDS: sodium chloride 0.9% 1,000 ML 75 ML IV (08:19)
--- NOTE | 2023-11-17 11:51 | P.PN_ITS ---
Subjective 2 Subjective: Levophed has been turned off Patient is verbally redirectable Hold off on Zyprexa for now We can transfer out of ICU to [facility] No significant abnormality on CBC or BMP Blood gas has shown improvement Lactic acid has improved to 2.3 IV fluids discontinued this morning patient clinically looks Vitals/I&O/Wt Last Vital Signs Temp 99.1 F 11/17/23 07:00 Pulse 98 11/17/23 11:30 Resp 21 H 11/17/23 11:30 BP 110/48 11/17/23 11:00 Pulse Ox 90 11/17/23 11:30 O2 Del Method Nasal Cannula 11/17/23 06:30 O2 Flow Rate 4 11/17/23 06:30 FiO2 10 11/16/23 20:07 11/16/23 11/17/23 11/17/23 22:59 06:59 14:59 Intake Total 3959.625 / 3959.625 939.625 / 4899.250 493.75 / 493.75 Output Total 1000 / 1000 Balance 3959.625 / 3959.625 -60.375 / 3899.250 493.75 / 493.75 Weight last 48 hrs Weight 122 kg Weight 120.746 kg Weight 123.377 kg Physical Exam 2 Narrative: GCS 15 Nonfocal neuroexam Verbally redirectable Clinical signs of fluid overload Currently on 3 L s1 s2 No new focal deficit Abdomen soft distended Lower extremity swelling noted Urinary Catheter Management: Hawkins: Cath Placed During This Visit: yes Reason for Continuing Indwelling Catheter: Accurate Measurement of Urinary Output in Critically Ill Patients Urinary Catheter Date of Insertion: 11/16/23 Urinary Catheter Time of Insertion: 14:00 Data 11/17/23 04:41 11/17/23 04:41 Micro: Microbiology 11/16/23 13:58 Blood Culture - Preliminary Blood SPECIMEN COLLECTED 11/16/23 14:02 Blood Culture - Preliminary Blood SPECIMEN COLLECTED A&P Assessment and plan (1) Steroid dependence: (2) Congestive heart failure: Qualifiers: Heart failure type: other Qualified Code(s): I50.9 - Heart failure, unspecified (3) Hypothyroidism: (4) Bladder cancer: (5) Septic shock: (6) COPD (chronic obstructive pulmonary disease): Qualifiers: COPD type: unspecified COPD Qualified Code(s): J44.9 - Chronic obstructive pulmonary disease, unspecified (7) Generalized epilepsy: (8) Aspiration pneumonia: (9) Debility: (10) Metabolic encephalopathy: Plan Septic shock: Resolved Levophed turned off this morning Continue antibiotics Patient is afebrile at this morning Cultures negative to date Metabolic encephalopathy related to sepsis: Improving Patient is verbally redirectable Would avoid benzodiazepines, can use Zyprexa if needed if he is trying to pull his IV lines Acute on chronic hypoxia at baseline uses 3 L, currently on 4 L, improved since midnight Aspiration pneumonia: Continue antibiotics DNR/DNI Will start cardiac diet Discontinue IV fluids Give him Lasix Preserved ejection fraction heart failure exacerbation secondary to IV bolus, holding off on fluids for now Rester panel negative Disposition: To assisted living most likely by Saturday Hawkins catheter will be removed before his discharge back to assisted living Attestations 2 Medical Necessity Statement*: Transfer to ICU to [facility] Diagnoses Steroid dependence F19.20 Congestive heart failure I50.9 Heart failure type: other Hypothyroidism, unspecified type E03.9 Bladder cancer C67.9 Septic shock A41.9; R65.21 Chronic obstructive pulmonary disease, unspecified COPD type J44.9 COPD type: unspecified COPD Generalized epilepsy G40.309 Aspiration pneumonia J69.0 Debility R53.81 Metabolic encephalopathy G93.41
[2023-11-17] MEDS: ipratropium-albuterol 3 mL Neb INHALATION (15:09)
--- NOTE | 2023-11-17 16:33 | PC.NURSE ---
Levophed has remained off all shift. Intermittent confusion remains with attempting to pull at lines and wires. Patient is able to answer all orientation questions correctly.
--- NOTE | 2023-11-17 17:55 | PC.NURSE ---
Attempted to get patient to chair at 1745. Patient was able to stand but was unable to ambulate with assistance to chair. Family aware.
[2023-11-17] MEDS: OLANZapine 10 mg VIAL 5 MG IM (18:46)
[2023-11-17 19:21] LABS: C.Diff PCR (Lab) NEGATIVE (Negative)
[2023-11-17] MEDS: ALPRAZolam 0.5 mg Tablet PO (22:15)
[2023-11-18] VITALS (13 sets, daily range): BP systolic 149–160; BP diastolic 74–80; PULSE 80–99; RESP 16–26; TEMP 36.4–37.1; O2SAT 90–96
[2023-11-18] MEDS: cefepime 2,000 MG in sodium chloride 0.9% (plus) 50 ML 100 MG IV (04:06)
--- NOTE | 2023-11-18 06:01 | PM.DCS ---
Discharge Providers Date of Admission: 11/16/23 16:46 Date of Discharge: November 18, 2023 Attending Provider at Admission: Ethan Casas MD Attending Provider at Discharge: Ethan Casas MD Primary Care Provider: Trupti Grace MD Diagnoses at Discharge Discharge Diagnosis (1) Steroid dependence: Status: Acute (2) Congestive heart failure: Status: Acute Qualifiers: Heart failure type: other Qualified Code(s): I50.9 - Heart failure, unspecified Permanent problem details: Preserved ejection fraction, right-sided heart failure (3) Hypothyroidism: Status: Acute (4) Bladder cancer: Status: Acute Permanent problem details: Clinical diagnosis only: Cystoscopy for hematuria April 2022 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 He elected fulguration in the clinic without formal biopsy given age and other medical problems this was felt to be a very reasonable compromise. (5) Septic shock: Status: Acute (6) COPD (chronic obstructive pulmonary disease): Status: Acute Qualifiers: COPD type: unspecified COPD Qualified Code(s): J44.9 - Chronic obstructive pulmonary disease, unspecified (7) Generalized epilepsy: Status: Acute (8) Aspiration pneumonia: Status: Acute (9) Debility: Status: Acute (10) Metabolic encephalopathy: Status: Acute Reason for Visit Reason for Visit: RESP. FAILURE Hospital Course Hospital Course 88-year-old male with history of COPD, uses 3 L of oxygen at baseline, presented to the hospital for management evaluation of significant dehydration related to diarrhea, he was hypoxic as well requiring more oxygen than baseline 3 L, he was diagnosed with aspiration pneumonia, patient developed septic shock, required Levophed in the beginning which we were able to wean off in 24 hours and transfer him out of ICU to medical floor, C. difficile was ruled out, cultures remain negative, patient is verbally redirectable, he is DNR/DNI, patient required BiPAP frequently in the hospital, I he was getting BiPAP dependent at nighttime, he required a lot of sedatives to calm him down which aggravated the situation, patient had poor p.o. intake, functional status has declined aggressively, he is getting dehydrated, he was put on D5 half-normal saline IV fluids, multiple family meetings were conducted, family had decided to pursue hospice care because of getting BiPAP dependent, poor p.o. intake sodium 146, patient is not able to carry out a decent conversation, CT head showed age-related changes plus infarct right cerebellar area, patient has significant dementia multiple signs of lacunar infarcts, Physical Exam Narrative: patient awake and alert Verbally redirectable Abdomen soft 4 L nasal cannula Mild pedal edema S1, S2 Urinary Catheter Management: Hawkins: Cath Placed During This Visit: yes Reason for Continuing Indwelling Catheter: Accurate Measurement of Urinary Output in Critically Ill Patients Urinary Catheter Date of Insertion: 11/16/23 Urinary Catheter Time of Insertion: 14:00 Discharge Data Studies Completed and Pending Completed Studies During Hospitalization Category Date Time Status CTA chest CT abdomen pelvis [CT angio chest w abd pel w Cat Scan 11/16/23 15:04 Completed con] Stat XR chest 1V portable [id number] Stat Exams 11/16/23 13:22 Completed Pending at discharge Category Date Time Status Basic Metabolic Panel AM LABS Lab 11/18/23 04:00 Ordered Blood Culture Stat Lab 11/16/23 13:58 Results Complete Blood Count w/Auto AM LABS Lab 11/18/23 04:00 Ordered Lactic Acid level (Lactate) Stat Lab 11/17/23 06:53 Ordered Radiology Impressions Chest X-Ray 11/16/23 13:22 IMPRESSION: 1. Accentuated cardiac silhouette size and vascularity. See discussion above. 2. Bibasilar opacities as above. Chest/Abdomen/Pelvis CT 11/16/23 15:04 IMPRESSION: 1. No acute PE with limitations described above. Enlarged pulmonary artery suggesting possible pulmonary hypertension. 2. Right basilar patchy opacity suggesting compressive atelectasis versus pneumonia. Follow-up should be obtained. 3. Coronary calcification and elevated right hemidiaphragm. IMPRESSION: 1. Colonic diverticulosis. No acute bowel findings otherwise. 2. Lobulated hepatic contour. See discussion above. 3. Other nonacute findings as above. COMMENTS: Consistent with the [employer]'s Incidental Findings Committee white paper (J Am Aida Radiol 2018): Any incidental renal lesion less than 1 cm or classified as too small to characterize, or any incidental cystic renal lesion characterized as simple-appearing, is likely benign. No follow-up imaging is recommended for these lesions per consensus recommendations based on imaging criteria. Laboratory Results WBC 6.08 10^3/uL (3.29-11.43) 11/17/23 04:41 RBC 3.87 10^6/uL (3.85-5.65) 11/17/23 04:41 Hgb 12.40 g/dL (11.27-16.99) 11/17/23 04:41 Hct 39.9 % (37-53) 11/17/23 04:41 MCV 103.1 fl (82-101) H 11/17/23 04:41 MCH 32.0 pg (27-33) 11/17/23 04:41 MCHC 31.1 g/dL (30-55) 11/17/23 04:41 RDW 14.8 % (12.1-15.1) 11/17/23 04:41 Plt Count 139 10^3/cmm (157-399) L 11/17/23 04:41 MPV 10.4 fL (7.4-10.4) 11/17/23 04:41 Neut % (Auto) 86.5 % 11/17/23 04:41 Lymph % (Auto) 9.0 % 11/17/23 04:41 Sully % (Auto) 3.8 % 11/17/23 04:41 Eos % (Auto) 0.0 % 11/17/23 04:41 Baso % (Auto) 0.0 % 11/17/23 04:41 Neut # (Auto) 5.26 10^3/uL (1.8-7.7) 11/17/23 04:41 Lymph # (Auto) 0.6 10^3/uL (0.8-4.8) L 11/17/23 04:41 Sully # (Auto) 0.2 10^3/uL (0.2-0.9) 11/17/23 04:41 Eos # (Auto) 0.0 10^3/uL (0.0-0.8) 11/17/23 04:41 Baso # (Auto) 0.0 10^3/uL (0.0-0.1) 11/17/23 04:41 Nucleated RBC % (auto) 0 % 11/17/23 04:41 Nucleated RBCs # 0.0 /100WBC 11/17/23 04:41 Specimen Type Arterial 11/16/23 13:22 Sample Site Radial, right 11/16/23 13:22 ABG pH 7.37 (7.35-7.45) 11/16/23 13:22 ABG pCO2 41.7 mmHg (35-45) 11/16/23 13:22 ABG pO2 89.5 mmHg (80.0-100.0) 11/16/23 13:22 ABG HCO3 23.8 mmol/L (22-26) 11/16/23 13:22 ABG O2 Saturation 98.2 11/16/23 13:22 ABG Base Excess -1.6 mmol/L (-2.0-2.0) 11/16/23 13:22 Neeraj Test Pos 11/16/23 13:22 A-a O2 Gradient 1.0 mmHg (5-10) L 11/16/23 13:22 Hematocrit 39.8 % (42-52) L 11/16/23 13:22 Hgb O2 Saturation 95.9 % (95-100) 11/16/23 13:22 Carboxyhemoglobin 1.6 %THgb (0.4-20.1) 11/16/23 13:22 Methemoglobin 0.7 % (0.4-1.5) 11/16/23 13:22 Total Hemoglobin 13.0 g/dL (14-18) L 11/16/23 13:22 Sodium 145.0 mmol/L (131-143) H 11/16/23 13:22 Potassium 2.9 mmol/L (3.5-5.0) L 11/16/23 13:22 Glucose 162.0 mg/dL (70-115) H 11/16/23 13:22 Ionized Calcium 1.1 mmol/L (1.1-1.4) 11/16/23 13:22 O2 Delivery Device Nrb 11/16/23 13:22 O2 Liters/Min 15.0 % 11/16/23 13:22 Covering And Lining Supervisor ID [place] 11/16/23 13:22 Sodium 144 mmol/L (136-145) 11/17/23 04:41 Potassium 4.2 mmol/L (3.5-5.1) 11/17/23 04:41 Chloride 109 mmol/L (98-107) H 11/17/23 04:41 Carbon Dioxide 24 mmol/L (22-29) 11/17/23 04:41 Anion Gap 15.2 (5-19) 11/17/23 04:41 BUN 20 mg/dL (8-23) 11/17/23 04:41 Creatinine 1.2 mg/dL (0.7-1.2) 11/17/23 04:41 GFR Calculation Not Reportable 11/17/23 04:41 Glucose 250 mg/dL (65-115) H 11/17/23 04:41 POC Glucose 156 mg/dL (70-110) H 11/16/23 13:18 Calculated Osmolality 309 mOsm/kg (285-295) H 11/17/23 04:41 Lactic Acid 2.3 mmol/L (0.5-2.2) H 11/17/23 04:41 Lactic Acid (Sepsis) 4.7 mmol/L (0.5-2.2) H* 11/16/23 16:27 Calcium 7.5 mg/dL (8.5-10.5) L 11/17/23 04:41 Phosphorus 3.1 mg/dL (2.5-4.5) 11/17/23 04:41 Magnesium 1.6 mg/dL (1.7-2.3) L 11/17/23 04:41 Total Bilirubin 0.5 mg/dL (0.15-1.2) 11/16/23 14:18 AST 45 U/L (0-40) H 11/16/23 14:18 ALT 32 U/L (0-41) 11/16/23 14:18 Alkaline Phosphatase 52 U/L (40-130) 11/16/23 14:18 Creatine Kinase 76 U/L (39-308) 11/16/23 14:18 Troponin T Baseline 36 ng/L (0-15) H 11/16/23 14:18 Troponin T 120 Minute 39.34 ng/L (0-15) H 11/16/23 16:27 Delta Troponin T 3.34 ABS# (0-10) 11/16/23 16:27 Troponin T Hi Sens 6Hr 39.49 ng/L (0-15) H 11/16/23 20:18 Troponin T Hi Sens 6Hr Delta 3.49 ng/L (0-12) 11/16/23 20:18 C-Reactive Protein 106.8 mg/L (0.0-4.9) H 11/17/23 04:41 NT-Pro-B Natriuret Pep 782 pg/mL (0-450) H 11/16/23 14:18 Total Protein 6.1 g/dL (6.6-8.7) L 11/16/23 14:18 Albumin 3.6 g/dL (3.5-5.2) 11/16/23 14:18 Globulin 2.5 g/dL (1.3-4.6) 11/16/23 14:18 Lipase 9 U/L (13-60) L 11/16/23 14:18 Urine Color Yellow (Yellow) 11/16/23 13:50 Urine Appearance Clear (CLEAR) 11/16/23 13:50 Urine pH 5 (5-7) 11/16/23 13:50 Ur Specific [place] 1.020 (1.005-1.030) 11/16/23 13:50 Urine Protein Neg (Negative) 11/16/23 13:50 Urine Glucose (UA) Norm (Normal) 11/16/23 13:50 Urine Ketones Negative (Negative) 11/16/23 13:50 Urine Blood Neg (Negative) 11/16/23 13:50 Urine Nitrate Negative (Negative) 11/16/23 13:50 Urine Bilirubin Neg (Negative) 11/16/23 13:50 Urine Urobilinogen Norm mg/dL (Negative) 11/16/23 13:50 Ur Leukocyte Esterase Negative (Negative) 11/16/23 13:50 Adenovirus (PCR) Not detected (NOT DETECT) 11/16/23 13:50 C. pneumoniae DNA (PCR) Not detected (NOT DETECT) 11/16/23 13:50 C. difficile (PCR) Negative (Negative) 11/17/23 17:00 Coronavirus 229E (PCR) Not detected (NOT DETECT) 11/16/23 13:50 Human Metapneumovir PCR Not detected (NOT DETECT) 11/16/23 13:50 Influenza A (H1) PCR Not detected (NOT DETECT) 11/16/23 13:50 Influ A (H1/09) PCR Not detected (NOT DETECT) 11/16/23 13:50 Influenza A (H3) PCR Not detected (NOT DETECT) 11/16/23 13:50 Influenza Type A (PCR) Not detected (NOT DETECT) 11/16/23 13:50 Influenza Type B (PCR) Not detected (NOT DETECT) 11/16/23 13:50 M. pneumoniae (PCR) Not detected (NOT DETECT) 11/16/23 13:50 Parainfluenza 1 (PCR) Not detected (NOT DETECT) 11/16/23 13:50 Parainfluenza 2 (PCR) Not detected (NOT DETECT) 11/16/23 13:50 Parainfluenza 3 (PCR) Not detected (NOT DETECT) 11/16/23 13:50 Parainfluenza 4 (PCR) Not detected (NOT DETECT) 11/16/23 13:50 RSV Type A (PCR) Not detected (NOT DETECT) 11/16/23 13:50 RSV Type B (PCR) Not detected (NOT DETECT) 11/16/23 13:50 Entero/Rhino (PCR) Not detected (NOT DETECT) 11/16/23 13:50 SARS-CoV-2 (PCR) Not detected (NOT DETECT) 11/16/23 13:50 Vitals Last Vital Signs Temp 98.8 F 11/18/23 04:00 Pulse 99 11/18/23 04:00 Resp 21 H 11/18/23 04:00 BP 160/76 11/18/23 04:00 Pulse Ox 90 11/18/23 04:00 O2 Del Method Nasal Cannula 11/18/23 04:00 O2 Flow Rate 5 11/17/23 19:38 FiO2 10 11/16/23 20:07 Discharge Plan Discharge Patient Disposition: Xfer SNF Condition: Stable Prescriptions: New amoxicillin-pot clavulanate 875-125 mg Tablet 1 tab PO BID Qty: 6 0RF Continued losartan 50 mg Tablet 50 mg PO DAILY Qty: 30 0RF oxycodone-acetaminophen 5-325 mg Tablet 1 tab PO Q4H PRN (Reason: Pain) Discontinued amlodipine 10 mg tablet 10 mg PO DAILY hydrocortisone 20 mg tablet See Rx Instructions PO DAILY Rx Instructions: 1 tablet in the morning and 0.5tablet in the evening aspirin 81 mg Tablet,Chewable 81 mg PO DAILY@12 Hold Instructions: Resume on 01/14/21. multivitamin Tablet 1 tab PO DAILY@12 levetiracetam 500 mg tablet 500 mg PO DAILY furosemide [Lasix] 40 mg tablet 40 mg PO DAILY Qty: 30 0RF potassium chloride 10 mEq capsule, extended release 10 meq PO DAILY Qty: 30 0RF tramadol 50 mg tablet 50 mg PO Q8H PRN (Reason: pain) Qty: 10 0RF levothyroxine 75 mcg Tablet 75 mcg PO DAILY nystatin 100,000 unit/gram Cream See Rx Instructions .ROUTE .COMPLEX Rx Instructions: 1 applic topically twice daily to perineal area for redness or excoriation until healed. then discontinue. Referrals: Trupti Grace MD [Primary Care Provider] - 11/25/23 8:45 am Patient Instructions: Opioid Safety Discharge Attestations Time Spent in Discharge Care*: greater than 30 min Status at Discharge: Cognitive status at discharge: cognitively intact, Behavioral status at discharge: cooperative, Quality Metrics Clinical Quality Measures [ No reported AMI, CVA or VTE this stay] Coding Level of Care Code Acute Code for Chg Fwd Diagnoses Steroid dependence F19.20 Congestive heart failure I50.9 Heart failure type: other Hypothyroidism, unspecified type E03.9 Bladder cancer C67.9 Septic shock A41.9; R65.21 Chronic obstructive pulmonary disease, unspecified COPD type J44.9 COPD type: unspecified COPD Generalized epilepsy G40.309 Aspiration pneumonia J69.0 Debility R53.81 Metabolic encephalopathy G93.41
[2023-11-18] MEDS: levothyroxine 112 mcg Tablet PO (06:19)
[2023-11-18 06:44] LABS: Basophils % 0.2 %; Lymphocytes % 10.2 %; Mean Corpuscular HGB Conc 30.3 g/dL (30-55); Mean Corpuscular Hemoglobin 31.7 pg (27-33); Mean Corpuscular Volume 104.8 fl (82-101); Mean Platelet Volume 10.7 fL (7.4-10.4); Monocytes # 0.8 10^3/uL (0.2-0.9); Monocytes % 8.1 %; Neutrophils # 7.56 10^3/uL (1.8-7.7); Neutrophils % 80.3 %; Nucleated Red Blood Cells % 0 %; Platelet Count 140 10^3/cmm (157-399); Red Blood Count 3.72 10^6/uL (3.85-5.65); Red Cell Distribution Width 14.7 % (12.1-15.1); White Blood Count 9.41 10^3/uL (3.29-11.43)
[2023-11-18 07:03] LABS: Blood Urea Nitrogen 20 mg/dL (8-23); Calcium 7.6 mg/dL (8.5-10.5); Carbon Dioxide 23 mmol/L (22-29); Chloride 111 mmol/L (98-107); Creatinine Clr Calc Pharmacy 57.1454; Glucose 154 mg/dL (65-115); Osmolality Calculated 306 mOsm/kg (285-295); Sodium 145 mmol/L (136-145)
--- NOTE | 2023-11-18 07:08 | PC.PHAR ---
PT IS FROM [facility]
[2023-11-18] MEDS: piperacillin-tazobactam 3.375 GM in sodium chloride 0.9% (plus) 50 ML IV ×2 (09:17→19:14)
--- NOTE | 2023-11-18 09:19 | PC.CHAP ---
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 [] Patient/Family/Request visit [] Outpatient visit [] Follow-up visit [] Physician referral [] Code/Alert [x] Routine visit [] Staff referral [] Actively dying [x] Patient sleeping [] Family support [] [] Out of room [] Palliative care [] [] Receiving care in room [] Pre-surgical visit [] Trauma [] Long length of stay [] ICU visit [] Other: Relational/Emotional Strength [] Patient feels connected with others/family/visitors/staff [] Distress [] Loneliness/isolation [] Abandonment Spirituality of Patient [] Person of Lisset [] Attends Advent of their [place] [] Believes in Prayer [] Reads Bible or Restorationist materials [] There are Spiritual issues to be addressed Branch General Manager Interventions [] Prayer [] Active listening [] Non-anxious presence [] Spiritual/emotional support [] Crisis/trauma care [] Spiritual counseling [] Bereavement support [] Provided bereavement packet [] Provided Bible/devotional materials [] Provided toy/stuffed animal, coloring book to patient or family member [] Provided Communion [] Anointing/Mayo [] Salvation [] Completed spiritual assessment [] Other: Impact on Illness or Injury [] Angry [] Fearful [] Anxious [] Often cries [] Exhaustion [] Unable to work [] Unable to attend sabianist [] Unable to walk/stand [] Unable to read [] Unable to drive [] Unable to eat/drink [] Unable to sleep [] Unable to be with family [] Patient intubated [] Other: Summary Time spent with patient
--- NOTE | 2023-11-18 10:57 | P.PN_ITS ---
Subjective 2 Subjective: Patient has become very agitated Required Zyprexa Slept around 4 AM, currently arousable only to tactile stimuli Requested ABG Hemodynamically stable Very one-to-one supervision C. difficile panel negative Vitals/I&O/Wt Last Vital Signs Temp 98.2 F 11/18/23 08:00 Pulse 93 11/18/23 08:29 Resp 18 11/18/23 08:29 BP 149/77 11/18/23 08:00 Pulse Ox 93 11/18/23 08:29 O2 Del Method Nasal Cannula 11/18/23 08:29 O2 Flow Rate 5 11/18/23 08:29 FiO2 10 11/16/23 20:07 11/17/23 11/18/23 11/18/23 22:59 06:59 14:59 Intake Total 250 / 793.75 100 / 893.75 Output Total 650 / 650 850 / 1500 Balance -400 / 143.75 -750 / -606.25 Weight last 48 hrs Weight 120.973 kg Weight 122 kg Weight 120.746 kg Weight 123.377 kg Physical Exam 2 Narrative: Awake and alert Euvolemic Responsive to tactile stimuli Extremely drowsy Currently on room air Hemodynamically stable Able to move his extremities S1, S2 , Able to open eyes Urinary Catheter Management: Hawkins: Cath Placed During This Visit: yes Reason for Continuing Indwelling Catheter: Other Urinary Catheter Date of Insertion: 11/16/23 Urinary Catheter Time of Insertion: 14:00 Data 11/18/23 05:39 11/18/23 05:39 Micro: Microbiology 11/16/23 13:58 Blood Culture - Preliminary Blood NEGATIVE TO DATE 11/16/23 14:02 Blood Culture - Preliminary Blood NEGATIVE TO DATE A&P Assessment and plan (1) Steroid dependence: (2) Hypertension: (3) Congestive heart failure: Qualifiers: Heart failure type: other Qualified Code(s): I50.9 - Heart failure, unspecified (4) Hypothyroidism: (5) Bladder cancer: (6) Septic shock: (7) Metabolic encephalopathy: (8) Generalized epilepsy: (9) COPD (chronic obstructive pulmonary disease): Qualifiers: COPD type: unspecified COPD Qualified Code(s): J44.9 - Chronic obstructive pulmonary disease, unspecified (10) Aspiration pneumonia: (11) Chronic respiratory failure with hypoxia: Plan Septic shock: Resolved Aspiration pneumonia: Continue antibiotic Metabolic encephalopathy has not improved significantly, patient is still requiring one-to-one supervision Delirium related to underlying aspiration pneumonia and possible UTI Continue one-to-one supervision Will request ABG Afebrile Cultures negative Will request PT evaluation to decide whether patient will need SNF versus discharge back to assisted living Patient is DNR/DNI Will allow him to eat once he is more awake and alert Attestations 2 Medical Necessity Statement*: Continue medical management Coding Level of Care Code Acute Code for Chg Fwd Diagnoses Steroid dependence F19.20 Essential hypertension I10 Congestive heart failure I50.9 Heart failure type: other Hypothyroidism, unspecified type E03.9 Bladder cancer C67.9 Septic shock A41.9; R65.21 Metabolic encephalopathy G93.41 Generalized epilepsy G40.309 Chronic obstructive pulmonary disease, unspecified COPD type J44.9 COPD type: unspecified COPD Aspiration pneumonia J69.0 Chronic respiratory failure with hypoxia J96.11
[2023-11-18 11:31] LABS: ABG PH Result 7.25 (7.35-7.45); Arterial Blood Gas Hematocrit 37.5 % (42-52); Base Excess ABG -1.5 mmol/L (-2.0-2.0); Blood Gas Allen Test Pos; Blood Gas Sample Type Arterial; HCO3 ABG 26.6 mmol/L (22-26); PO2 ABG 73.9 mmHg (80.0-100.0)
[2023-11-18 11:32] LABS: ABG PCO2 60.3 mmHg (35-45); Blood Gas Operator Identificat MONRO; Blood Gas Sample Site Radial, right; Oxygen Device NC; PO2 FiO2 Ratio Arterial Blood 0
--- NOTE | 2023-11-18 13:07 | PC.SOCIAL ---
IMM Update pg 2 of IMM updated and reviewed w/ patient. Copy provided and copy dated, initialed and placed in chart.
[2023-11-18 14:35] LABS: ABG PCO2 52.6 mmHg (35-45); ABG PH Result 7.33 (7.35-7.45); Arterial Blood Gas Hematocrit 35.4 % (42-52); Base Excess ABG 1.2 mmol/L (-2.0-2.0); Blood Gas Allen Test Pos; Blood Gas Sample Type Arterial; Carboxyhemoglobin 1.2 %THgb (0.4-20.1); HCO3 ABG 27.8 mmol/L (22-26); HGB O2 Sat 92.8 % (95-100); Ionized Calcium Level - ABG 1.1 mmol/L (1.1-1.4); Methemoglobin 0.3 % (0.4-1.5); Oxygen Saturation ABG 94.2; PO2 ABG 63.3 mmHg (80.0-100.0); Potassium Level - ABG 3.5 mmol/L (3.5-5.0); Total Hemoglobin 11.5 g/dL (14-18)
[2023-11-18 14:39] LABS: Alveolar-Arterial Oxygen Gradi 24.9 mmHg (5-10); Blood Gas Operator Identificat MONRO; Blood Gas Sample Site Radial, left; Oxygen Device BIPAP; PO2 FiO2 Ratio Arterial Blood 0
--- NOTE | 2023-11-18 18:37 | PC.NURSE ---
Pt awakens and states that he is hungry and wants food. Soft wrist restraints released and attempted to feed pt. Pt pulled off all sheets and telemetry leads and was grasping for other tubes. Placed food in pt's mouth and pt chewed it around for a couple of seconds and then spit it all out. Wrist restraints reapplied.
[2023-11-18] MEDS: lidocaine 5% Patch 1 PATCH TOPICAL (20:37)
[2023-11-19] VITALS (11 sets, daily range): BP systolic 118–164; BP diastolic 62–91; PULSE 76–96; RESP 16–24; TEMP 36.4–36.9; O2SAT 92–97
[2023-11-19] MEDS: LORazepam 2 mg/mL INJ 10 mL MDV 0.5 MG IVP ×2 (01:23→22:38)
[2023-11-19] MEDS: piperacillin-tazobactam 3.375 GM in sodium chloride 0.9% (plus) 50 ML IV ×3 (02:26→17:40)
[2023-11-19 06:15] LABS: Basophils % 0.1 %; Hematocrit 38.4 % (37-53); Lymphocytes # 1.1 10^3/uL (0.8-4.8); Lymphocytes % 14.3 %; Mean Corpuscular HGB Conc 31.8 g/dL (30-55); Mean Corpuscular Hemoglobin 32.1 pg (27-33); Mean Corpuscular Volume 101.1 fl (82-101); Mean Platelet Volume 10.6 fL (7.4-10.4); Monocytes # 0.5 10^3/uL (0.2-0.9); Monocytes % 6.1 %; Neutrophils # 5.97 10^3/uL (1.8-7.7); Nucleated Red Blood Cells % 0 %; Platelet Count 120 10^3/cmm (157-399); Red Cell Distribution Width 14.7 % (12.1-15.1); White Blood Count 7.56 10^3/uL (3.29-11.43)
[2023-11-19 06:38] LABS: Blood Urea Nitrogen 18 mg/dL (8-23); Calcium 8.1 mg/dL (8.5-10.5); Carbon Dioxide 21 mmol/L (22-29); Chloride 111 mmol/L (98-107); Creatinine Clr Calc Pharmacy 68.1812; Glucose 131 mg/dL (65-115); Osmolality Calculated 304 mOsm/kg (285-295); Sodium 145 mmol/L (136-145)
[2023-11-19 06:42] LABS: Anion Gap 16.3 (5-19); Potassium 3.3 mmol/L (3.5-5.1)
[2023-11-19] MEDS: levothyroxine 112 mcg Tablet PO (06:44)
[2023-11-19] MEDS: FUROsemide 40 mg Tablet PO (08:53)
[2023-11-19] MEDS: levETIRAcetam 500 mg Tablet PO (08:53)
[2023-11-19] MEDS: sennosides-docusate Tablet 1 TAB PO (08:54)
[2023-11-19] MEDS: potassium chloride ER 10 mEq Tablet PO (08:54)
[2023-11-19] MEDS: lidocaine 5% Patch 1 PATCH TOPICAL (08:57)
[2023-11-19] MEDS: ALPRAZolam 0.5 mg Tablet PO (08:59)
--- NOTE | 2023-11-19 12:02 | P.PN_ITS ---
Subjective 2 Subjective: Hypercapnia improved Patient is able to follow commands he is able to tell me that he is in the [facility] He was complaining of back pain History of disc herniation and fracture in the past Patient also has history of generalized epilepsy, requires 2 to 3 L of oxygen at baseline, history of pituitary macroadenoma Spoke with his son who is stating that he missed: Most likely has dementia as well because even at the assisted living his mentation was fluctuating on a day-to-day basis Vitals/I&O/Wt Last Vital Signs Temp 98.3 F 11/19/23 08:40 Pulse 94 11/19/23 10:42 Resp 18 11/19/23 10:42 BP 118/69 11/19/23 08:40 Pulse Ox 92 11/19/23 10:42 O2 Del Method Nasal Cannula 11/19/23 10:42 O2 Flow Rate 5 11/19/23 10:42 FiO2 45 11/19/23 03:05 11/18/23 11/19/23 11/19/23 22:59 06:59 14:59 Intake Total 280 / 430 580 / 1010 240 / 240 Output Total 650 / 2150 650 / 2800 Balance -370 / -1720 -70 / -1790 240 / 240 Weight last 48 hrs Weight 119.612 kg Weight 120.973 kg Physical Exam 2 Narrative: Patient is able to follow commands, alert and oriented GCS 15 Able to move extremities Hawkins catheter in place Complaining of back pain Patient was able to roll over to his right side Currently on 2 L nasal cannula Hawkins catheter in place Urinary Catheter Management: Hawkins: Cath Placed During This Visit: yes Reason for Continuing Indwelling Catheter: Other Urinary Catheter Date of Insertion: 11/16/23 Urinary Catheter Time of Insertion: 14:00 Data 11/19/23 06:01 11/19/23 06:01 A&P Assessment and plan (1) Steroid dependence: (2) Hypothyroidism: (3) Bladder cancer: (4) Septic shock: (5) Metabolic encephalopathy: (6) Generalized epilepsy: (7) COPD (chronic obstructive pulmonary disease): Qualifiers: COPD type: unspecified COPD Qualified Code(s): J44.9 - Chronic obstructive pulmonary disease, unspecified (8) Multiple lung nodules on CT: (9) Aspiration pneumonia: (10) Debility: (11) Delirium: (12) Dementia: (13) DNR (do not resuscitate): Plan Hypercapnic encephalopathy Improved Use of BiPAP improve his condition Acute hypercapnia most likely related to use of Zyprexa and sedatives which was given for his sedation, I would avoid for prevention of delirium Septic shock: Resolved Continue home regimen of steroids, Lasix and potassium supplementation Son did confirm and endorse that patient's mentation is fluctuant and it would vary on day-to-day basis, we are doing physical therapy today to assess whether patient would qualify for assisted living versus rehab/SNF Family is agreeable to send him to SNF however they preferred assisted living to avoid and the Will keep Hawkins catheter in, continue antibiotics for aspiration pneumonia C. difficile ruled out, loose stool DNR/DNI Regular diet Attestations 2 Medical Necessity Statement*: Continue medical management Diagnoses Steroid dependence F19.20 Hypothyroidism, unspecified type E03.9 Bladder cancer C67.9 Septic shock A41.9; R65.21 Metabolic encephalopathy G93.41 Generalized epilepsy G40.309 Chronic obstructive pulmonary disease, unspecified COPD type J44.9 COPD type: unspecified COPD Multiple lung nodules on CT R91.8 Aspiration pneumonia J69.0 Debility R53.81 Delirium R41.0 Dementia F03.90 DNR (do not resuscitate) Z66
[2023-11-20] VITALS (14 sets, daily range): BP systolic 114–174; BP diastolic 65–91; PULSE 72–127; RESP 16–22; TEMP 36.5–36.8; O2SAT 88–97
--- NOTE | 2023-11-20 00:24 | PC.NURSE ---
Wrist restraints were not on the pt upon this nurse's arrival onto shift 11/19/23.
[2023-11-20] MEDS: piperacillin-tazobactam 3.375 GM in sodium chloride 0.9% (plus) 50 ML IV (02:28)
[2023-11-20 03:47] LABS: ABG PCO2 42.5 mmHg (35-45); ABG PH Result 7.46 (7.35-7.45); Base Excess ABG 5.6 mmol/L (-2.0-2.0); Blood Gas Allen Test Pos; Blood Gas Sample Site Brachial, left; Blood Gas Sample Type Arterial; HCO3 ABG 30.1 mmol/L (22-26); Oxygen Device BIPAP; PO2 ABG 64.2 mmHg (80.0-100.0); PO2 FiO2 Ratio Arterial Blood 0
[2023-11-20] MEDS: oxyCODONE 5 mg IR Tab/Cap PO ×2 (04:50→14:49)
[2023-11-20 05:22] LABS: Blood Urea Nitrogen 13 mg/dL (8-23); Carbon Dioxide 28 mmol/L (22-29); Chloride 107 mmol/L (98-107); Creatinine Clr Calc Pharmacy 76.2375; Glucose 121 mg/dL (65-115); Osmolality Calculated 305 mOsm/kg (285-295); Sodium 147 mmol/L (136-145)
[2023-11-20 05:25] LABS: Anion Gap 15.4 (5-19); Potassium 3.4 mmol/L (3.5-5.1)
[2023-11-20] MEDS: levothyroxine 112 mcg Tablet PO (06:30)
[2023-11-20] MEDS: lidocaine 5% Patch 1 PATCH TOPICAL (08:01)
[2023-11-20] MEDS: potassium chloride ER 10 mEq Tablet PO (08:01)
[2023-11-20] MEDS: TRAMadol 50 mg Tablet PO (08:01)
[2023-11-20] MEDS: sennosides-docusate Tablet 1 TAB PO (08:01)
[2023-11-20] MEDS: ALPRAZolam 0.5 mg Tablet PO ×2 (08:01→14:49)
[2023-11-20] MEDS: levETIRAcetam 500 mg Tablet PO (08:01)
[2023-11-20] MEDS: FUROsemide 40 mg Tablet PO (08:01)
--- NOTE | 2023-11-20 09:36 | PC.SOCIAL ---
IMM Update pg 2 of IMM updated and reviewed w/ patient. Copy provided and copy dated, initialed and placed in chart.
--- NOTE | 2023-11-20 11:59 | PM.PN ---
Subjective Subjective: Patient is getting dehydrated Hold Lasix Start D5 IV fluids Hold potassium For owning will add Seroquel at bedtime This morning patient is showing normal ABG however received Haldol overnight, drowsy at the time of evaluation Vitals/I&O/Wt Last Vital Signs Temp 97.8 F 11/20/23 07:26 Pulse 74 11/20/23 11:50 Resp 20 H 11/20/23 08:51 BP 160/77 11/20/23 07:26 Pulse Ox 94 11/20/23 11:50 O2 Del Method Nasal Cannula 11/20/23 08:51 O2 Flow Rate 6 11/20/23 08:51 FiO2 45 11/20/23 11:50 11/19/23 11/20/23 11/20/23 22:59 06:59 14:59 Intake Total 100 / 340 170 / 510 120 / 120 Output Total 300 / 1800 400 / 2200 Balance -200 / -1460 -230 / -1690 120 / 120 Weight last 48 hrs Weight 121.109 kg Weight 119.612 kg Physical Exam Narrative: Signs of dehydration present Poor p.o. intake Able to follow commands Able to answer simple questions Able to move his extremities Dehydrated S1, S2 Currently on 4 L nasal cannula Hypertensive Urinary Catheter Management: Hawkins: Cath Placed During This Visit: yes Reason for Continuing Indwelling Catheter: Other Urinary Catheter Date of Insertion: 11/16/23 Urinary Catheter Time of Insertion: 14:00 Data 11/19/23 06:01 11/20/23 04:30 A&P Assessment and plan (1) DNR (do not resuscitate): (2) Steroid dependence: (3) Hypothyroidism: (4) Bladder cancer: (5) Metabolic encephalopathy: (6) Delirium: (7) Dementia: (8) Septic shock: (9) COPD (chronic obstructive pulmonary disease): Qualifiers: COPD type: unspecified COPD Qualified Code(s): J44.9 - Chronic obstructive pulmonary disease, unspecified (10) Aspiration pneumonia: (11) Debility: (12) Hypernatremia: Plan Hypernatremia: Start D5 normal saline Patient has poor p.o. intake Sundowning: Add Seroquel at bedtime Hypercapnia has improved At baseline uses 3 L of oxygen Plan to discharge to [facility] by tomorrow Appreciate PT recommendations I will hold off on Keppra Patient has delirium with underlying dementia DNR/DNI Son updated Attestations Medical Necessity Statement*: Discharge likely by tomorrow Diagnoses DNR (do not resuscitate) Z66 Steroid dependence F19.20 Hypothyroidism, unspecified type E03.9 Bladder cancer C67.9 Metabolic encephalopathy G93.41 Delirium R41.0 Dementia F03.90 Septic shock A41.9; R65.21 Chronic obstructive pulmonary disease, unspecified COPD type J44.9 COPD type: unspecified COPD Aspiration pneumonia J69.0 Debility R53.81 Hypernatremia E87.0
[2023-11-20] MEDS: dextrose 5%-sod chloride 0.9% 1,000 ML 75 ML IV (12:36)
--- NOTE | 2023-11-20 13:54 | PC.NURSE ---
Addendum entered by Holly Gill LPN 11/20/23 17:42: Pt was able to take meds crushed in applesauce upon waking up. Original Note: This nurse has been unable to awaken pt to take his 1200 and 1300 po meds. This nurse continues re-attempting q1h.
[2023-11-20] MEDS: losartan 50 mg Tablet PO (14:33)
[2023-11-20] MEDS: amlodipine 10 mg Tablet PO (14:33)
[2023-11-20] MEDS: potassium chloride ER 20 mEq Tablet PO (14:33)
[2023-11-20] MEDS: amoxicillin-clav 875-125 mg Tablet 1 TAB PO (17:04)
[2023-11-20] MEDS: quetiapine 25 mg Tablet PO (20:05)
[2023-11-21] VITALS (17 sets, daily range): BP systolic 84–155; BP diastolic 48–80; PULSE 71–88; RESP 16–30; TEMP 36.4–37; O2SAT 85–98
[2023-11-21 00:09] LABS: ABG PH Result 7.26 (7.35-7.45); Arterial Blood Gas Hematocrit 36.9 % (42-52); Base Excess ABG 3.1 mmol/L (-2.0-2.0); Blood Gas Allen Test Pos; Blood Gas Sample Site Radial, right; Blood Gas Sample Type Arterial; Carboxyhemoglobin 1.7 %THgb (0.4-20.1); HCO3 ABG 32.1 mmol/L (22-26); HGB O2 Sat 84.2 % (95-100); Ionized Calcium Level - ABG 1.1 mmol/L (1.1-1.4); Methemoglobin 0.9 % (0.4-1.5); Oxygen Device NC; Oxygen Saturation ABG 86.4; PO2 ABG 54.3 mmHg (80.0-100.0); Potassium Level - ABG 2.8 mmol/L (3.5-5.0)
[2023-11-21 00:15] LABS: ABG PCO2 72.3 mmHg (35-45)
--- NOTE | 2023-11-21 00:20 | PC.NURSE ---
Pt placed back on BiPap.
--- NOTE | 2023-11-21 05:45 | PC.NURSE ---
[facility] was called and provided an update for overnight about the pt requiring more oxygen with the BiPap to maintain oxygen saturations. [facility] verbalized understanding of the update.
--- NOTE | 2023-11-21 07:44 | XR_ITS ---
WS: [id number] XR chest 1V portable [id number] REASON FOR EXAM: pna FINDINGS: There is fluid in the minor fissure on the right which was not demonstrated on the previous exam of . There now appears to be a left pleural effusion and consolidation in the left lower lobe that was not present on 11/16/2023. No other interval change or new finding. XR/XR chest 1V portable [id number] IMPRESSION: Interval change in the chest since 11/16/2023 as above.
--- NOTE | 2023-11-21 07:44 | CT_ITS ---
WS: [id number] CT HEAD NONCONTRAST HISTORY: AMS TECHNIQUE: Contiguous axial imaging performed through the brain in 2.5 mm imaging. Bone and soft tiss ue windows. Sagittal and coronal reformats reviewed. All CT scans at [facility] use at least one of these dose optimization techniques: automated exposure control; mA and/or kV adjustment per pa tient size (includes targeted exams where dose is matched to clinical indication); or iterative recon struction. DLP: 1222.63 mGy.cm COMPARISON: 05/23/2022 No acute intracranial hemorrhage, midline shift or mass effect. Moderate atrophy and small vessel ischemic disease. Previously described lacunar infarcts are not as well visualized today. Moderate volume loss and atrophy cerebellum. New area of decreased attenuation in the inferior RIGHT cerebellum. Ventricles: Normal size with no hydrocephalus. No inferior displacement of the cerebellar tonsils. Paranasal sinuses: As visualized are clear. Mastoid air cells: Well pneumatized. Calvarium and scalp: Skull is intact with no soft tissue edema or swelling. Atherosclerotic plaque extensive throughout the intracranial carotid arteries. CT/CT head wo con* [id number] IMPRESSION: 1. No acute intracranial hemorrhage or edema. 2. Moderate cerebral and cerebellar atrophy with small vessel ischemic disease . 3. New area of decreased attenuation in the inferior RIGHT cerebellum. This ma y be a prior infarct. For further evaluation MRI brain with and without contras t can be obtained.
[2023-11-21 07:47] LABS: Anion Gap 15.2 (5-19); Blood Urea Nitrogen 16 mg/dL (8-23); Calcium 7.7 mg/dL (8.5-10.5); Carbon Dioxide 28 mmol/L (22-29); Chloride 106 mmol/L (98-107); Creatinine Clr Calc Pharmacy 48.3839; Glucose 121 mg/dL (65-115); Osmolality Calculated 304 mOsm/kg (285-295); Potassium 3.2 mmol/L (3.5-5.1); Sodium 146 mmol/L (136-145)
[2023-11-21] MEDS: lidocaine 5% Patch 1 PATCH TOPICAL (09:10)
[2023-11-21] MEDS: HYDROmorphone 1 mg/mL INJ 1 mL 0.400000000000000022 MG IVP ×2 (11:01→20:26)
--- NOTE | 2023-11-21 11:20 | P.PN_ITS ---
Subjective 2 Subjective: [facility] head consistent with subacute infarct Vitals/I&O/Wt Last Vital Signs Temp 97.7 F 11/21/23 08:07 Pulse 78 11/21/23 08:07 Resp 16 11/21/23 08:07 BP 131/68 11/21/23 08:07 Pulse Ox 95 11/21/23 08:07 O2 Del Method BiPAP 11/21/23 08:07 O2 Flow Rate 6 11/20/23 20:08 FiO2 60 11/21/23 07:59 11/20/23 11/21/23 11/21/23 22:59 06:59 14:59 Intake Total 532.5 / 652.5 Output Total 1650 / 1650 150 / 1800 Balance -1117.5 / -997.5 -150 / -1147.5 Weight last 48 hrs Weight 118.076 kg Weight 121.109 kg Physical Exam 2 Narrative: Family at the bedside Patient is drowsy Urinary Catheter Management: Hawkins: Cath Placed During This Visit: yes Reason for Continuing Indwelling Catheter: Other Urinary Catheter Date of Insertion: 11/16/23 Urinary Catheter Time of Insertion: 14:00 Data 11/19/23 06:01 11/21/23 06:53 A&P Assessment and plan (1) DNR (do not resuscitate): (2) Steroid dependence: (3) Hospice care: Plan [facility] Attestations 2 Medical Necessity Statement*: Continue medical management Coding Level of Care Code Acute Code for Chg Fwd Diagnoses DNR (do not resuscitate) Z66 Steroid dependence F19.20 Hospice care Z51.5
--- NOTE | 2023-11-21 11:22 | PM.DCS ---
Discharge Providers Date of Admission: 11/16/23 16:46 Date of Discharge: November 21, 2023 Attending Provider at Admission: Ethan Casas MD Attending Provider at Discharge: Ethan Casas MD Primary Care Provider: Trupti Grace MD Diagnoses at Discharge Discharge Diagnosis (1) DNR (do not resuscitate): Status: Acute (2) Steroid dependence: Status: Acute (3) Hospice care: Status: Acute Reason for Visit Reason for Visit: RESP. FAILURE Hospital Course Hospital Course 88-year-old male with history of COPD, uses 3 L of oxygen at baseline, presented to the hospital for management evaluation of significant dehydration related to diarrhea, he was hypoxic as well requiring more oxygen than baseline 3 L, he was diagnosed with aspiration pneumonia, patient developed septic shock, required Levophed in the beginning which we were able to wean off in 24 hours and transfer him out of ICU to medical floor, C. difficile was ruled out, cultures remain negative, patient is verbally redirectable, he is DNR/DNI, patient required BiPAP frequently in the hospital, I he was getting BiPAP dependent at nighttime, he required a lot of sedatives to calm him down which aggravated the situation, patient had poor p.o. intake, functional status has declined aggressively, he is getting dehydrated, he was put on D5 half-normal saline IV fluids, multiple family meetings were conducted, family had decided to pursue hospice care because of getting BiPAP dependent, poor p.o. intake sodium 146, patient is not able to carry out a decent conversation, CT head showed age-related changes plus infarct right cerebellar area, patient has significant dementia multiple signs of lacunar infarcts, Physical Exam Urinary Catheter Management: Hawkins: Cath Placed During This Visit: yes Reason for Continuing Indwelling Catheter: Other Urinary Catheter Date of Insertion: 11/16/23 Urinary Catheter Time of Insertion: 14:00 Discharge Data Studies Completed and Pending Completed Studies During Hospitalization Category Date Time Status CT head wo con* [id number] Routine Cat Scan 11/21/23 07:[address] abdomen pelvis [CT angio chest w abd pel w Cat Scan 11/16/23 15:04 Completed con] Stat XR chest 1V portable [id number] Routine Exams 11/21/23 07:44 Completed XR chest 1V portable [id number] Stat Exams 11/16/23 13:22 Completed Pending at discharge Category Date Time Status Blood Culture Stat Lab 11/16/23 13:58 Results COVID [SARS Covid-2 Antigen] Routine Lab 11/21/23 08:02 Uncollected Radiology Impressions Chest/Abdomen/Pelvis CT 11/16/23 15:04 IMPRESSION: 1. No acute PE with limitations described above. Enlarged pulmonary artery suggesting possible pulmonary hypertension. 2. Right basilar patchy opacity suggesting compressive atelectasis versus pneumonia. Follow-up should be obtained. 3. Coronary calcification and elevated right hemidiaphragm. IMPRESSION: 1. Colonic diverticulosis. No acute bowel findings otherwise. 2. Lobulated hepatic contour. See discussion above. 3. Other nonacute findings as above. COMMENTS: Consistent with the [employer]'s Incidental Findings Committee white paper (J Am Aida Radiol 2018): Any incidental renal lesion less than 1 cm or classified as too small to characterize, or any incidental cystic renal lesion characterized as simple-appearing, is likely benign. No follow-up imaging is recommended for these lesions per consensus recommendations based on imaging criteria. Chest X-Ray 11/21/23 07:44 IMPRESSION: Interval change in the chest since 11/16/[address] 11/21/23 07:44 IMPRESSION: 1. No acute intracranial hemorrhage or edema. 2. Moderate cerebral and cerebellar atrophy with small vessel ischemic disease. 3. New area of decreased attenuation in the inferior RIGHT cerebellum. This may be a prior infarct. For further evaluation MRI brain with and without contrast can be obtained. Laboratory Results WBC 7.56 10^3/uL (3.29-11.43) 11/19/23 06:01 RBC 3.80 10^6/uL (3.85-5.65) L 11/19/23 06:01 Hgb 12.20 g/dL (11.27-16.99) 11/19/23 06:01 Hct 38.4 % (37-53) 11/19/23 06:01 MCV 101.1 fl (82-101) H 11/19/23 06:01 MCH 32.1 pg (27-33) 11/19/23 06:01 MCHC 31.8 g/dL (30-55) 11/19/23 06:01 RDW 14.7 % (12.1-15.1) 11/19/23 06:01 Plt Count 120 10^3/cmm (157-399) L 11/19/23 06:01 MPV 10.6 fL (7.4-10.4) H 11/19/23 06:01 Neut % (Auto) 79.0 % 11/19/23 06:01 Lymph % (Auto) 14.3 % 11/19/23 06:01 [place] % (Auto) 6.1 % 11/19/23 06:01 Eos % (Auto) 0.0 % 11/19/23 06:01 Baso % (Auto) 0.1 % 11/19/23 06:01 Neut # (Auto) 5.97 10^3/uL (1.8-7.7) 11/19/23 06:01 Lymph # (Auto) 1.1 10^3/uL (0.8-4.8) 11/19/23 06:01 [place] # (Auto) 0.5 10^3/uL (0.2-0.9) 11/19/23 06:01 Eos # (Auto) 0.0 10^3/uL (0.0-0.8) 11/19/23 06:01 Baso # (Auto) 0.0 10^3/uL (0.0-0.1) 11/19/23 06:01 Nucleated RBC % (auto) 0 % 11/19/23 06:01 Nucleated RBCs # 0.0 /100WBC 11/19/23 06:01 Specimen Type Arterial 11/20/23 23:55 Sample Site Radial, right 11/20/23 23:55 ABG pH 7.26 (7.35-7.45) L 11/20/23 23:55 ABG pCO2 72.3 mmHg (35-45) H* 11/20/23 23:55 ABG pO2 54.3 mmHg (80.0-100.0) L 11/20/23 23:55 ABG PO2/FiO2 Ratio 0 11/20/23 03:40 ABG HCO3 32.1 mmol/L (22-26) H 11/20/23 23:55 ABG O2 Saturation 86.4 11/20/23 23:55 ABG Base Excess 3.1 mmol/L (-2.0-2.0) H 11/20/23 23:55 Neeraj Test Pos 11/20/23 23:55 A-a O2 Gradient 1.0 mmHg (5-10) L 11/20/23 23:55 Hematocrit 36.9 % (42-52) L 11/20/23 23:55 Hgb O2 Saturation 84.2 % (95-100) L 11/20/23 23:55 Carboxyhemoglobin 1.7 %THgb (0.4-20.1) 11/20/23 23:55 Methemoglobin 0.9 % (0.4-1.5) 11/20/23 23:55 Total Hemoglobin 12.0 g/dL (14-18) L 11/20/23 23:55 Sodium 148.0 mmol/L (131-143) H 11/20/23 23:55 Potassium 2.8 mmol/L (3.5-5.0) L 11/20/23 23:55 Glucose 140.0 mg/dL (70-115) H 11/20/23 23:55 Ionized Calcium 1.1 mmol/L (1.1-1.4) 11/20/23 23:55 O2 Delivery Device Nc 11/20/23 23:55 O2 Liters/Min 6.0 % 11/20/23 23:55 FiO2 45.0 % 11/20/23 03:40 PEEP 8.0 cmH20 11/20/23 03:40 Bracelet Former ID yorna 11/20/23 23:55 Sodium 146 mmol/L (136-145) H 11/21/23 06:53 Potassium 3.2 mmol/L (3.5-5.1) L 11/21/23 06:53 Chloride 106 mmol/L (98-107) 11/21/23 06:53 Carbon Dioxide 28 mmol/L (22-29) 11/21/23 06:53 Anion Gap 15.2 (5-19) 11/21/23 06:53 BUN 16 mg/dL (8-23) 11/21/23 06:53 Creatinine 1.4 mg/dL (0.7-1.2) H 11/21/23 06:53 GFR Calculation Not Reportable 11/21/23 06:53 Glucose 121 mg/dL (65-115) H 11/21/23 06:53 POC Glucose 156 mg/dL (70-110) H 11/16/23 13:18 Calculated Osmolality 304 mOsm/kg (285-295) H 11/21/23 06:53 Lactic Acid 2.3 mmol/L (0.5-2.2) H 11/17/23 04:41 Lactic Acid (Sepsis) 4.7 mmol/L (0.5-2.2) H* 11/16/23 16:27 Calcium 7.7 mg/dL (8.5-10.5) L 11/21/23 06:53 Phosphorus 3.1 mg/dL (2.5-4.5) 11/17/23 04:41 Magnesium 1.6 mg/dL (1.7-2.3) L 11/17/23 04:41 Total Bilirubin 0.5 mg/dL (0.15-1.2) 11/16/23 14:18 AST 45 U/L (0-40) H 11/16/23 14:18 ALT 32 U/L (0-41) 11/16/23 14:18 Alkaline Phosphatase 52 U/L (40-130) 11/16/23 14:18 Creatine Kinase 76 U/L (39-308) 11/16/23 14:18 Troponin T Baseline 36 ng/L (0-15) H 11/16/23 14:18 Troponin T 120 Minute 39.34 ng/L (0-15) H 11/16/23 16:27 Delta Troponin T 3.34 ABS# (0-10) 11/16/23 16:27 Troponin T Hi Sens 6Hr 39.49 ng/L (0-15) H 11/16/23 20:18 Troponin T Hi Sens 6Hr Delta 3.49 ng/L (0-12) 11/16/23 20:18 C-Reactive Protein 106.8 mg/L (0.0-4.9) H 11/17/23 04:41 NT-Pro-B Natriuret Pep 782 pg/mL (0-450) H 11/16/23 14:18 Total Protein 6.1 g/dL (6.6-8.7) L 11/16/23 14:18 Albumin 3.6 g/dL (3.5-5.2) 11/16/23 14:18 Globulin 2.5 g/dL (1.3-4.6) 11/16/23 14:18 Lipase 9 U/L (13-60) L 11/16/23 14:18 Urine Color Yellow (Yellow) 11/16/23 13:50 Urine Appearance Clear (CLEAR) 11/16/23 13:50 Urine pH 5 (5-7) 11/16/23 13:50 Ur Specific [place] 1.020 (1.005-1.030) 11/16/23 13:50 Urine Protein Neg (Negative) 11/16/23 13:50 Urine Glucose (UA) Norm (Normal) 11/16/23 13:50 Urine Ketones Negative (Negative) 11/16/23 13:50 Urine Blood Neg (Negative) 11/16/23 13:50 Urine Nitrate Negative (Negative) 11/16/23 13:50 Urine Bilirubin Neg (Negative) 11/16/23 13:50 Urine Urobilinogen Norm mg/dL (Negative) 11/16/23 13:50 Ur Leukocyte Esterase Negative (Negative) 11/16/23 13:50 Adenovirus (PCR) Not detected (NOT DETECT) 11/16/23 13:50 C. pneumoniae DNA (PCR) Not detected (NOT DETECT) 11/16/23 13:50 C. difficile (PCR) Negative (Negative) 11/17/23 17:00 Coronavirus 229E (PCR) Not detected (NOT DETECT) 11/16/23 13:50 Human Metapneumovir PCR Not detected (NOT DETECT) 11/16/23 13:50 Influenza A (H1) PCR Not detected (NOT DETECT) 11/16/23 13:50 Influ A (H1/09) PCR Not detected (NOT DETECT) 11/16/23 13:50 Influenza A (H3) PCR Not detected (NOT DETECT) 11/16/23 13:50 Influenza Type A (PCR) Not detected (NOT DETECT) 11/16/23 13:50 Influenza Type B (PCR) Not detected (NOT DETECT) 11/16/23 13:50 M. pneumoniae (PCR) Not detected (NOT DETECT) 11/16/23 13:50 Parainfluenza 1 (PCR) Not detected (NOT DETECT) 11/16/23 13:50 Parainfluenza 2 (PCR) Not detected (NOT DETECT) 11/16/23 13:50 Parainfluenza 3 (PCR) Not detected (NOT DETECT) 11/16/23 13:50 Parainfluenza 4 (PCR) Not detected (NOT DETECT) 11/16/23 13:50 RSV Type A (PCR) Not detected (NOT DETECT) 11/16/23 13:50 RSV Type B (PCR) Not detected (NOT DETECT) 11/16/23 13:50 Entero/Rhino (PCR) Not detected (NOT DETECT) 11/16/23 13:50 SARS-CoV-2 (PCR) Not detected (NOT DETECT) 11/16/23 13:50 Vitals Last Vital Signs Temp 97.7 F 11/21/23 08:07 Pulse 78 11/21/23 08:07 Resp 16 11/21/23 08:07 BP 131/68 11/21/23 08:07 Pulse Ox 95 11/21/23 08:07 O2 Del Method BiPAP 11/21/23 08:07 O2 Flow Rate 6 11/20/23 20:08 FiO2 60 11/21/23 07:59 Discharge Plan Discharge Patient Disposition: [facility] Condition: Stable Prescriptions: New amoxicillin-pot clavulanate 875-125 mg Tablet 1 tab PO BID Qty: 6 0RF Continued losartan 50 mg Tablet 50 mg PO DAILY Qty: 30 0RF oxycodone-acetaminophen 5-325 mg Tablet 1 tab PO Q4H PRN (Reason: Pain) Discontinued amlodipine 10 mg tablet 10 mg PO DAILY hydrocortisone 20 mg tablet See Rx Instructions PO DAILY Rx Instructions: 1 tablet in the morning and 0.5tablet in the evening aspirin 81 mg Tablet,Chewable 81 mg PO DAILY@12 Hold Instructions: Resume on 01/14/21. multivitamin Tablet 1 tab PO DAILY@12 levetiracetam 500 mg tablet 500 mg PO DAILY furosemide [Lasix] 40 mg tablet 40 mg PO DAILY Qty: 30 0RF potassium chloride 10 mEq capsule, extended release 10 meq PO DAILY Qty: 30 0RF tramadol 50 mg tablet 50 mg PO Q8H PRN (Reason: pain) Qty: 10 0RF levothyroxine 75 mcg Tablet 75 mcg PO DAILY nystatin 100,000 unit/gram Cream See Rx Instructions .ROUTE .COMPLEX Rx Instructions: 1 applic topically twice daily to perineal area for redness or excoriation until healed. then discontinue. Referrals: Trupti Grace MD [Primary Care Provider] - 11/25/23 8:45 am Patient Instructions: Opioid Safety Discharge Attestations Status at Discharge: Cognitive status at discharge: cognitively intact, Behavioral status at discharge: cooperative, Coding Level of Care Code Acute Code for Chg Fwd Diagnoses DNR (do not resuscitate) Z66 Steroid dependence F19.20 Hospice care Z51.5
[2023-11-21 21:02] LABS: SARS Covid-2 Antigen negative (Negative)
[2023-11-21] MEDS: LORazepam 2 mg/mL INJ 10 mL MDV 0.5 MG IVP (22:06)
[2023-11-22] VITALS (8 sets, daily range): BP systolic 112–153; BP diastolic 62–72; PULSE 74–87; RESP 16–28; TEMP 36.5–36.9; O2SAT 90–95
[2023-11-22] MEDS: HYDROmorphone 1 mg/mL INJ 1 mL 0.400000000000000022 MG IVP ×2 (01:26→07:33)
[2023-11-22] MEDS: LORazepam 2 mg/mL INJ 10 mL MDV 1 MG IM (02:53)
[2023-11-22] MEDS: LORazepam 2 mg/mL oral liquid (mL) 0.5 MG PO (06:49)
[2023-11-22] MEDS: lidocaine 5% Patch 1 PATCH TOPICAL (07:32)
[2023-11-22] MEDS: oxyCODONE 5 mg IR Tab/Cap PO (07:33)
[2023-11-22] MEDS: TRAMadol 50 mg Tablet PO (07:33)
--- NOTE | 2023-11-22 08:46 | PM.DCS ---
Discharge Providers Date of Admission: 11/16/23 16:46 Date of Discharge: November 22, 2023 Attending Provider at Admission: Ethan Casas MD Attending Provider at Discharge: Ethan Casas MD Primary Care Provider: Trupti Grace MD Diagnoses at Discharge Discharge Diagnosis (1) DNR (do not resuscitate): Status: Acute (2) Steroid dependence: Status: Acute (3) Hospice care: Status: Acute Reason for Visit Reason for Visit: RESP. FAILURE Hospital Course Hospital Course 88-year-old male with history of COPD, uses 3 L of oxygen at baseline, presented to the hospital for management evaluation of significant dehydration related to diarrhea, he was hypoxic as well requiring more oxygen than baseline 3 L, he was diagnosed with aspiration pneumonia, patient developed septic shock, required Levophed in the beginning which we were able to wean off in 24 hours and transfer him out of ICU to medical floor, C. difficile was ruled out, cultures remain negative, patient is verbally redirectable, he is DNR/DNI, patient required BiPAP frequently in the hospital, I he was getting BiPAP dependent at nighttime, he required a lot of sedatives to calm him down which aggravated the situation, patient had poor p.o. intake, functional status has declined aggressively, he is getting dehydrated, he was put on D5 half-normal saline IV fluids, multiple family meetings were conducted, family had decided to pursue hospice care because of getting BiPAP dependent, poor p.o. intake sodium 146, patient is not able to carry out a decent conversation, CT head showed age-related changes plus infarct right cerebellar area, patient has significant dementia multiple signs of lacunar infarcts, Physical Exam Narrative: Family at the bedside Patient is drowsy Urinary Catheter Management: Hawkins: Cath Placed During This Visit: yes Reason for Continuing Indwelling Catheter: Other Urinary Catheter Date of Insertion: 11/16/23 Urinary Catheter Time of Insertion: 14:00 Discharge Data Studies Completed and Pending Completed Studies During Hospitalization Category Date Time Status CT head wo con* [id number] Routine Cat Scan 11/21/23 07:[address] abdomen pelvis [CT angio chest w abd pel w Cat Scan 11/16/23 15:04 Completed con] Stat XR chest 1V portable [id number] Routine Exams 11/21/23 07:44 Completed XR chest 1V portable [id number] Stat Exams 11/16/23 13:22 Completed Radiology Impressions Chest/Abdomen/Pelvis CT 11/16/23 15:04 IMPRESSION: 1. No acute PE with limitations described above. Enlarged pulmonary artery suggesting possible pulmonary hypertension. 2. Right basilar patchy opacity suggesting compressive atelectasis versus pneumonia. Follow-up should be obtained. 3. Coronary calcification and elevated right hemidiaphragm. IMPRESSION: 1. Colonic diverticulosis. No acute bowel findings otherwise. 2. Lobulated hepatic contour. See discussion above. 3. Other nonacute findings as above. COMMENTS: Consistent with the [employer]'s Incidental Findings Committee white paper (J Am Aida Radiol 2018): Any incidental renal lesion less than 1 cm or classified as too small to characterize, or any incidental cystic renal lesion characterized as simple-appearing, is likely benign. No follow-up imaging is recommended for these lesions per consensus recommendations based on imaging criteria. Chest X-Ray 11/21/23 07:44 IMPRESSION: Interval change in the chest since 11/16/[address] 11/21/23 07:44 IMPRESSION: 1. No acute intracranial hemorrhage or edema. 2. Moderate cerebral and cerebellar atrophy with small vessel ischemic disease. 3. New area of decreased attenuation in the inferior RIGHT cerebellum. This may be a prior infarct. For further evaluation MRI brain with and without contrast can be obtained. Laboratory Results WBC 7.56 10^3/uL (3.29-11.43) 11/19/23 06:01 RBC 3.80 10^6/uL (3.85-5.65) L 11/19/23 06:01 Hgb 12.20 g/dL (11.27-16.99) 11/19/23 06:01 Hct 38.4 % (37-53) 11/19/23 06:01 MCV 101.1 fl (82-101) H 11/19/23 06:01 MCH 32.1 pg (27-33) 11/19/23 06:01 MCHC 31.8 g/dL (30-55) 11/19/23 06:01 RDW 14.7 % (12.1-15.1) 11/19/23 06:01 Plt Count 120 10^3/cmm (157-399) L 11/19/23 06:01 MPV 10.6 fL (7.4-10.4) H 11/19/23 06:01 Neut % (Auto) 79.0 % 11/19/23 06:01 Lymph % (Auto) 14.3 % 11/19/23 06:01 [place] % (Auto) 6.1 % 11/19/23 06:01 Eos % (Auto) 0.0 % 11/19/23 06:01 Baso % (Auto) 0.1 % 11/19/23 06:01 Neut # (Auto) 5.97 10^3/uL (1.8-7.7) 11/19/23 06:01 Lymph # (Auto) 1.1 10^3/uL (0.8-4.8) 11/19/23 06:01 [place] # (Auto) 0.5 10^3/uL (0.2-0.9) 11/19/23 06:01 Eos # (Auto) 0.0 10^3/uL (0.0-0.8) 11/19/23 06:01 Baso # (Auto) 0.0 10^3/uL (0.0-0.1) 11/19/23 06:01 Nucleated RBC % (auto) 0 % 11/19/23 06:01 Nucleated RBCs # 0.0 /100WBC 11/19/23 06:01 Specimen Type Arterial 11/20/23 23:55 Sample Site Radial, right 11/20/23 23:55 ABG pH 7.26 (7.35-7.45) L 11/20/23 23:55 ABG pCO2 72.3 mmHg (35-45) H* 11/20/23 23:55 ABG pO2 54.3 mmHg (80.0-100.0) L 11/20/23 23:55 ABG PO2/FiO2 Ratio 0 11/20/23 03:40 ABG HCO3 32.1 mmol/L (22-26) H 11/20/23 23:55 ABG O2 Saturation 86.4 11/20/23 23:55 ABG Base Excess 3.1 mmol/L (-2.0-2.0) H 11/20/23 23:55 Eneraj Test Pos 11/20/23 23:55 A-a O2 Gradient 1.0 mmHg (5-10) L 11/20/23 23:55 Hematocrit 36.9 % (42-52) L 11/20/23 23:55 Hgb O2 Saturation 84.2 % (95-100) L 11/20/23 23:55 Carboxyhemoglobin 1.7 %THgb (0.4-20.1) 11/20/23 23:55 Methemoglobin 0.9 % (0.4-1.5) 11/20/23 23:55 Total Hemoglobin 12.0 g/dL (14-18) L 11/20/23 23:55 Sodium 148.0 mmol/L (131-143) H 11/20/23 23:55 Potassium 2.8 mmol/L (3.5-5.0) L 11/20/23 23:55 Glucose 140.0 mg/dL (70-115) H 11/20/23 23:55 Ionized Calcium 1.1 mmol/L (1.1-1.4) 11/20/23 23:55 O2 Delivery Device Nc 11/20/23 23:55 O2 Liters/Min 6.0 % 11/20/23 23:55 FiO2 45.0 % 11/20/23 03:40 PEEP 8.0 cmH20 11/20/23 03:40 Business Account Leader ID [email or web address] 11/20/23 23:55 Sodium 146 mmol/L (136-145) H 11/21/23 06:53 Potassium 3.2 mmol/L (3.5-5.1) L 11/21/23 06:53 Chloride 106 mmol/L (98-107) 11/21/23 06:53 Carbon Dioxide 28 mmol/L (22-29) 11/21/23 06:53 Anion Gap 15.2 (5-19) 11/21/23 06:53 BUN 16 mg/dL (8-23) 11/21/23 06:53 Creatinine 1.4 mg/dL (0.7-1.2) H 11/21/23 06:53 GFR Calculation Not Reportable 11/21/23 06:53 Glucose 121 mg/dL (65-115) H 11/21/23 06:53 POC Glucose 156 mg/dL (70-110) H 11/16/23 13:18 Calculated Osmolality 304 mOsm/kg (285-295) H 11/21/23 06:53 Lactic Acid 2.3 mmol/L (0.5-2.2) H 11/17/23 04:41 Lactic Acid (Sepsis) 4.7 mmol/L (0.5-2.2) H* 11/16/23 16:27 Calcium 7.7 mg/dL (8.5-10.5) L 11/21/23 06:53 Phosphorus 3.1 mg/dL (2.5-4.5) 11/17/23 04:41 Magnesium 1.6 mg/dL (1.7-2.3) L 11/17/23 04:41 Total Bilirubin 0.5 mg/dL (0.15-1.2) 11/16/23 14:18 AST 45 U/L (0-40) H 11/16/23 14:18 ALT 32 U/L (0-41) 11/16/23 14:18 Alkaline Phosphatase 52 U/L (40-130) 11/16/23 14:18 Creatine Kinase 76 U/L (39-308) 11/16/23 14:18 Troponin T Baseline 36 ng/L (0-15) H 11/16/23 14:18 Troponin T 120 Minute 39.34 ng/L (0-15) H 11/16/23 16:27 Delta Troponin T 3.34 ABS# (0-10) 11/16/23 16:27 Troponin T Hi Sens 6Hr 39.49 ng/L (0-15) H 11/16/23 20:18 Troponin T Hi Sens 6Hr Delta 3.49 ng/L (0-12) 11/16/23 20:18 C-Reactive Protein 106.8 mg/L (0.0-4.9) H 11/17/23 04:41 NT-Pro-B Natriuret Pep 782 pg/mL (0-450) H 11/16/23 14:18 Total Protein 6.1 g/dL (6.6-8.7) L 11/16/23 14:18 Albumin 3.6 g/dL (3.5-5.2) 11/16/23 14:18 Globulin 2.5 g/dL (1.3-4.6) 11/16/23 14:18 Lipase 9 U/L (13-60) L 11/16/23 14:18 Urine Color Yellow (Yellow) 11/16/23 13:50 Urine Appearance Clear (CLEAR) 11/16/23 13:50 Urine pH 5 (5-7) 11/16/23 13:50 Ur Specific Devol 1.020 (1.005-1.030) 11/16/23 13:50 Urine Protein Neg (Negative) 11/16/23 13:50 Urine Glucose (UA) Norm (Normal) 11/16/23 13:50 Urine Ketones Negative (Negative) 11/16/23 13:50 Urine Blood Neg (Negative) 11/16/23 13:50 Urine Nitrate Negative (Negative) 11/16/23 13:50 Urine Bilirubin Neg (Negative) 11/16/23 13:50 Urine Urobilinogen Norm mg/dL (Negative) 11/16/23 13:50 Ur Leukocyte Esterase Negative (Negative) 11/16/23 13:50 Adenovirus (PCR) Not detected (NOT DETECT) 11/16/23 13:50 C. pneumoniae DNA (PCR) Not detected (NOT DETECT) 11/16/23 13:50 C. difficile (PCR) Negative (Negative) 11/17/23 17:00 Coronavirus 229E (PCR) Not detected (NOT DETECT) 11/16/23 13:50 Human Metapneumovir PCR Not detected (NOT DETECT) 11/16/23 13:50 Influenza A (H1) PCR Not detected (NOT DETECT) 11/16/23 13:50 Influ A (H1/09) PCR Not detected (NOT DETECT) 11/16/23 13:50 Influenza A (H3) PCR Not detected (NOT DETECT) 11/16/23 13:50 Influenza Type A (PCR) Not detected (NOT DETECT) 11/16/23 13:50 Influenza Type B (PCR) Not detected (NOT DETECT) 11/16/23 13:50 M. pneumoniae (PCR) Not detected (NOT DETECT) 11/16/23 13:50 Parainfluenza 1 (PCR) Not detected (NOT DETECT) 11/16/23 13:50 Parainfluenza 2 (PCR) Not detected (NOT DETECT) 11/16/23 13:50 Parainfluenza 3 (PCR) Not detected (NOT DETECT) 11/16/23 13:50 Parainfluenza 4 (PCR) Not detected (NOT DETECT) 11/16/23 13:50 RSV Type A (PCR) Not detected (NOT DETECT) 11/16/23 13:50 RSV Type B (PCR) Not detected (NOT DETECT) 11/16/23 13:50 Entero/Rhino (PCR) Not detected (NOT DETECT) 11/16/23 13:50 SARS-CoV-2 (PCR) Not detected (NOT DETECT) 11/16/23 13:50 SARS-CoV-2 Ag (Rapid) negative (Negative) 11/21/23 18:00 Vitals Last Vital Signs Temp 97.8 F 11/22/23 07:30 Pulse 76 11/22/23 08:06 Resp 17 11/22/23 08:06 BP 124/68 11/22/23 07:30 Pulse Ox 95 11/22/23 08:06 O2 Del Method BiPAP 11/22/23 08:06 O2 Flow Rate 6 11/20/23 20:08 FiO2 60 11/22/23 08:06 Discharge Plan Discharge Patient Disposition: Xfer Other Condition: Critical Prescriptions: New amoxicillin-pot clavulanate 875-125 mg Tablet 1 tab PO BID Qty: 6 0RF Continued losartan 50 mg Tablet 50 mg PO DAILY Qty: 30 0RF oxycodone-acetaminophen 5-325 mg Tablet 1 tab PO Q4H PRN (Reason: Pain) Discontinued amlodipine 10 mg tablet 10 mg PO DAILY hydrocortisone 20 mg tablet See Rx Instructions PO DAILY Rx Instructions: 1 tablet in the morning and 0.5tablet in the evening aspirin 81 mg Tablet,Chewable 81 mg PO DAILY@12 Hold Instructions: Resume on 01/14/21. multivitamin Tablet 1 tab PO DAILY@12 levetiracetam 500 mg tablet 500 mg PO DAILY furosemide [Lasix] 40 mg tablet 40 mg PO DAILY Qty: 30 0RF potassium chloride 10 mEq capsule, extended release 10 meq PO DAILY Qty: 30 0RF tramadol 50 mg tablet 50 mg PO Q8H PRN (Reason: pain) Qty: 10 0RF levothyroxine 75 mcg Tablet 75 mcg PO DAILY nystatin 100,000 unit/gram Cream See Rx Instructions .ROUTE .COMPLEX Rx Instructions: 1 applic topically twice daily to perineal area for redness or excoriation until healed. then discontinue. Discharge Orders: Discharge Order (Routine); Ordered 11/22/23 Ordered By: Ethan Casas Referrals: Trupti Grace MD [Primary Care Provider] - 11/25/23 8:45 am Patient Instructions: Opioid Safety Discharge Attestations Time Spent in Discharge Care*: greater than 30 min Status at Discharge: Cognitive status at discharge: cognitively intact, Behavioral status at discharge: cooperative, Quality Metrics Clinical Quality Measures [ No reported AMI, CVA or VTE this stay] Coding Level of Care Code Acute Code for Chg Fwd Diagnoses DNR (do not resuscitate) Z66 Steroid dependence F19.20 Hospice care Z51.5
--- NOTE | 2023-11-22 11:54 | PC.NURSE ---
Report given to Charu at [facility].
== END 2023-11-22 13:32 | disposition hospice, inpatient (51) | DRG 871 ==
LOC: ER 17:10 → MEDSURG 18:09 → ICU 18:59 → MEDSURG 11-17 19:20
PROVIDERS: Internal Medicine; Admitting Provider Internal Medicine; Emergency Provider Family Medicine; PCP Family Medicine; Visit Provider Internal Medicine
DX: A41.9 Sepsis, unspecified organism (principal); G93.41 Metabolic encephalopathy; J69.0 Pneumonitis due to inhalation of food and vomit; R65.21 Severe sepsis with septic shock; E87.0 Hyperosmolality and hypernatremia; J44.0 Chronic obstructive pulmonary disease with (acute) lower respiratory infection; A08.4 Viral intestinal infection, unspecified; Z66 Do not resuscitate; Z79.52 Long term (current) use of systemic steroids; Z51.5 Encounter for palliative care; F03.90 Unspecified dementia, unspecified severity, without behavioral disturbance, psychotic disturbance, mood disturbance, and anxiety; Z85.51 Personal history of malignant neoplasm of bladder; Z87.891 Personal history of nicotine dependence; J44.9 Chronic obstructive pulmonary disease, unspecified; Z99.81 Dependence on supplemental oxygen; E86.0 Dehydration; E03.9 Hypothyroidism, unspecified; I10 Essential (primary) hypertension; R41.0 Disorientation, unspecified; G40.909 Epilepsy, unspecified, not intractable, without status epilepticus; R06.89 Other abnormalities of breathing
CPT/HCPCS: 36415; 36416; 36600; 51702; 70450; 71045; 71275; 74177; 80048; 80051; 80053; 81003; 82330; 82550; 82803; 82805; 82962; 83605; 83690; 83735; 83880; 84100; 84484; 85025; 86140; 87040; 87426; 87486; 87493; 87581; 87633; 93005; 94640; 94660; 96365; 96367; 96372; 96374; 96375; 96376; 97110; 97161; 97530; 99285; 99291; 99292; J0131; J0692; J1100; J1170; J1720; J2060; J2405; J2543; J3370; J3490; J7030; J7042; J7050; Q9967